=== PATIENT | female | born 1945 | race Hispanic/Latino ===

== ENCOUNTER 2016-03-10 18:16 | Day surgery (SDC) | payer MEDICARE, OTHER ==
[2016-03-10] MEDS ORDERED: Albuterol-Ipratrop 3 mg / 0.5 (3 ml) UD INH STA (18:54)
--- NOTE | 2016-03-10 19:01 | ED PDOC ---
HPI: Chest Pain Time Seen by Provider: 03/10/16 18:59 Chief Complaint (Nursing): Chest Pain Chief Complaint (Provider): chest pain/sob History Per: Patient (70 y/o h/o Alcohol abuse/COPD here with complaint of cough /sob. Was seen 03/08/2016 and diagnosed with pneumonia/copd. Patient signed out AMA 03/09/2016 without home medications. States she does not feel improved and is here for this reason. Denies any fevers/chills.) Past Medical History Reviewed: Historical Data, Nursing Documentation, Vital Signs Vital Signs: Last Vital Signs Temp 98.2 F 03/10/16 18:26 Pulse 78 03/10/16 18:50 Resp 26 H 03/10/16 18:26 BP 165/88 H 03/10/16 18:26 Pulse Ox 92 L 03/10/16 19:04 - Medical History PMH: Anxiety, Arthritis, Bipolar Disorder, Colonic Polyps, COPD, Dementia, Depression, Fractures (right wrist fracture), HTN, Hypercholesterolemia, Malignancy (squamous cell carcinoma of mouth/neck (2009)), Osteoporosis, Pneumonia, Schizophrenia Denies: CHF, Diabetes, Hepatitis, HIV, Hypothyroidism, Chronic Kidney Disease , Rheumatoid Arthritis, Seizures, Sexually Transmitted Disease - Family History Family History: States: Unknown Family Hx - Immunization History Hx Tetanus Toxoid Vaccination: Yes (w/in the past "couple of years") Hx Influenza Vaccination: Yes Hx Pneumococcal Vaccination: No - Home Medications Home Medications: Ambulatory Orders Medication Instructions Recorded Atorvastatin [Lipitor] 20 mg PO DAILY #0 tab 09/18/15 Folic Acid 1 mg PO DAILY #0 tab 09/18/15 Thiamine [Vitamin B1 Tab] 100 mg PO DAILY #0 tab 09/18/15 amLODIPine [Norvasc] 5 mg PO DAILY #0 tab 09/18/15 hydrOXYzine Pamoate [Vistaril] 25 mg PO TID PRN #0 cap 09/18/15 - Allergies Allergies/Adverse Reactions: Allergies Allergy/AdvReac Type Severity Reaction Status Date / Time No Known Allergies Allergy Verified 12/31/15 14:34 Review of Systems ROS Statement: Except As Marked, All Systems Reviewed And Found Negative Cardiovascular: Positive for: Chest Pain Respiratory: Positive for: Shortness of Breath Physical Exam - Reviewed Nursing Documentation Reviewed: Yes Vital Signs Reviewed: Yes - Physical Exam Appears: Positive for: Well, Non-toxic, No Acute Distress Head Exam: Positive for: ATRAUMATIC, NORMAL INSPECTION, NORMOCEPHALIC Skin: Positive for: Normal Color, Warm, DRY Eye Exam: Positive for: EOMI, Normal appearance, PERRL ENT: Positive for: Normal ENT Inspection Neck: Positive for: Normal, Painless ROM Cardiovascular/Chest: Positive for: Regular Rate, Rhythm Respiratory: Positive for: Normal Breath Sounds, Wheezing Gastrointestinal/Abdominal: Positive for: Normal Exam, Bowel Sounds, Soft Back: Positive for: Normal Inspection Extremity: Positive for: Normal ROM Neurologic/Psych: Positive for: Alert, Oriented - Laboratory Results Result Diagrams: 03/10/16 18:55 03/10/16 18:55 - ECG O2 Sat by Pulse Oximetry: 92 - Progress ED Course And Treament: DUONEB X 1 DOSE SOLUMEDROL 60MG IV X 1 DOSE ROCEPHIN 1 GM IV X 1 DOSE ZITHROMAX 500MG IV X 1 DOSE Disposition - Clinical Impression Clinical Impression: COPD exacerbation - Patient ED Disposition Is Patient to be Admitted: Transfer of Care - Disposition Disposition: Transfer of Care Disposition Time: 20:06 Condition: FAIR Patient Signed Over To: Sandra Milian Handoff Comments: RE-EVALUATION/RE-VIEW CXR
[2016-03-10] MEDS ORDERED: methylPREDNISolone 60 MG in Sodium Chloride 0.9% 50 ML IV STA (19:02)
[2016-03-10] MEDS ORDERED: Azithromycin 500 MG in Sodium Chloride 0.9% 250 ML IVPB STA (19:03)
[2016-03-10] MEDS ORDERED: MethylPREDNISolone 40 mg Vial ONE (19:15)
[2016-03-10 19:20] LABS: BASO # 0.1 K/uL (0.0-0.2); BASO % 0.8 % (0.0-2.0); EOS # 0.1 K/uL (0.0-0.7); EOS % 1.1 % (0.0-4.0); HEMATOCRIT 40.9 % (34.0-47.0); LYMPH # 2.3 K/uL (1.0-4.3); LYMPH % 25.8 % (20.0-40.0); MEAN CELL VOLUME 101.8 fl (81.0-99.0); MEAN CORPUSCULAR HEMOGLOBIN 34.3 pg (27.0-31.0); MEAN CORPUSCULAR HGB CONC 33.7 g/dL (33.0-37.0); MEAN PLATELET VOLUME 8.3 fl (7.2-11.7); MONO % 11.2 % (0.0-10.0); NEUT # 5.4 K/uL (1.8-7.0); NEUT % 61.1 % (50.0-75.0); NRBC % 0.1 % (0.0-0.0); RED CELL DISTRIBUTION WIDTH 14.7 % (11.5-14.5); WHITE BLOOD COUNT 8.9 K/uL (4.8-10.8)
[2016-03-10 19:29] LABS: ALB/GLOB RATIO 1.1 (1.0-2.1); ALCOHOL SERUM < 10 mg/dl (0-10); ALKALINE PHOSPHATASE 61 U/L (38-126); ALT/SGPT 12 U/L (9-52); AST/SGOT 20 U/L (14-36); BILIRUBIN,TOTAL 0.4 mg/dl (0.2-1.3); BLOOD UREA NITROGEN 29 mg/dl (7-17); CALCIUM 8.4 mg/dL (8.4-10.2); CARBON DIOXIDE 27 mmol/L (22-30); CHLORIDE 107 mmol/L (98-107); GFR AFRICAN-AMERICAN > 60; GLUCOSE,RANDOM 98 mg/dL (65-105); POTASSIUM 4.2 MMOL/L (3.6-5.0); SODIUM 145 mmol/l (132-148)
[2016-03-10] MEDS ORDERED: cefTRIAXone (Rocephin) 1 gm Inj ONE (20:07)
--- NOTE | 2016-03-10 21:19 | ED PDOC ---
- Laboratory Results Result Diagrams: 03/10/16 18:55 03/10/16 18:55 - ECG O2 Sat by Pulse Oximetry: 97 - Radiology X-Ray: Viewed By Me X-Ray Interpretation: Infiltrates (unchanged from previous xray 2 days ago which read bilateral infiltrates vs atelectasis) - Progress ED Course And Treament: Case endorsed to personal lines underwriter from Hugo BAINS pending chest xray, re-eval Patient evaluated by Dr. Cornejo, Hospitalist on-call, who is familiar with patient from admission 2 days ago; agrees patient appears to be improving since then. Will discharge with PO antibiotics, nebs to follow up PMD 1-2 days. Patient educated on findings, discharged with rx Levaquin, Albuterol neb solution, Prednisone. Advised follow up PMD 1-2 days. Return to ED for worsening/concerning symptoms. Disposition - Clinical Impression Clinical Impression: COPD exacerbation, Bronchitis - POA Present On Arrival: None - Disposition Disposition: Routine/Home Disposition Time: 21:19 Condition: STABLE Additional Instructions: Follow up with primary doctor in 1-2 days. Take medication as directed. Return to ED for worsening/concerning symptoms Prescriptions: Albuterol 0.083% [Albuterol Sulfate 3 Ml] 1 vial IH Q6 PRN #30 vial PRN Reason: Wheezing Levofloxacin [Levaquin] 500 mg PO DAILY #7 tablet Prednisone 50 mg PO DAILY #4 tablet Instructions: COPD (Chronic Obstructive Pulmonary Disease) (ED), Acute Bronchitis (ED)
[2016-03-10 23:59] VITALS: BP 136/69; PULSE 74; RESP 15; TEMP 97.6; O2SAT 96
--- NOTE | 2016-03-11 07:21 | CARD ---
APPROVED REPORT EKG Measurement Heart [id number] <Conclusion> Normal sinus rhythm Anterior infarct, age undetermined Abnormal ECG
--- NOTE | 2016-03-11 08:31 | RAD ---
HISTORY: chest pain COMPARISON: Comparison is made to 03/07/2016 FINDINGS: LUNGS: Re- demonstration of small opacities at the lung bases. No evidence of new infiltrate or consolidation in the lungs. Mildly elevation of the right hemidiaphragm again noted. PLEURA: No significant pleural effusion identified, no pneumothorax apparent. CARDIOVASCULAR: Normal. OSSEOUS STRUCTURES: No significant abnormalities. VISUALIZED UPPER ABDOMEN: Normal. OTHER FINDINGS: None. IMPRESSION: No significant interval change. A basilar small opacities likely atelectasis.
[2016-09-08] MEDS ORDERED: Propofol 10 mg/ml Inj (20 ML) ONE (10:56)
== END 2016-09-08 11:50 | disposition home or self-care (01) ==
LOC: H.ER 18:16 → H.ENDO 09-08 09:00
PROVIDERS: ATTEND Family Medicine
DX: J44.1 Chronic obstructive pulmonary disease with (acute) exacerbation (principal); J45.901 Unspecified asthma with (acute) exacerbation; J40 Bronchitis, not specified as acute or chronic; Z86.59 Personal history of other mental and behavioral disorders; I10 Essential (primary) hypertension; Z85.89 Personal history of malignant neoplasm of other organs and systems
CPT/HCPCS: 71010; 80053; 83880; 84484; 85025; 93005; 94640; 96365; 96367; 96375; 99284; G0480; J0456; J0696; J2001; J2405; J2704; J2920; J7050

== ENCOUNTER 2016-09-08 10:50 | Day surgery (SDC) | payer MEDICARE ==
[2016-09-08] MEDS ORDERED: Lactated Ringer's 500 ML IV ONE (10:56)
[2016-09-08 11:33] VITALS: TEMP 98
[2016-09-08 11:50] VITALS: BP 117/59; PULSE 65; RESP 16; O2SAT 97
== END 2016-09-08 11:31 | disposition home or self-care (01) ==
LOC: MERGE 10:50 → H.ENDO 10:50
PROVIDERS: ATTEND Internal Medicine Gastroenterology
DX: K63.5 Polyp of colon (principal); E78.5 Hyperlipidemia, unspecified; I10 Essential (primary) hypertension; K64.8 Other hemorrhoids; K57.30 Diverticulosis of large intestine without perforation or abscess without bleeding
CPT/HCPCS: 45378; J7120

== ENCOUNTER 2017-03-20 17:48 | Inpatient (IN) | payer MEDICAID, MEDICARE ==
[2017-03-20 17:49] VITALS: BMI 21.6
[2017-03-20 18:56] LABS: BASO # 0.1 K/uL (0.0-0.2); BASO % 0.8 % (0.0-2.0); EOS # 0.1 K/uL (0.0-0.7); EOS % 0.5 % (0.0-4.0); HEMATOCRIT 49.8 % (34.0-47.0); LYMPH # 1.5 K/uL (1.0-4.3); LYMPH % 15.6 % (20.0-40.0); MEAN CELL VOLUME 100.5 fl (81.0-99.0); MEAN CORPUSCULAR HEMOGLOBIN 33.9 pg (27.0-31.0); MEAN CORPUSCULAR HGB CONC 33.7 g/dL (33.0-37.0); MEAN PLATELET VOLUME 8.8 fl (7.2-11.7); MONO # 0.8 K/uL (0.0-0.8); MONO % 8.2 % (0.0-10.0); NEUT # 7.1 K/uL (1.8-7.0); NEUT % 74.9 % (50.0-75.0); NRBC % 0.1 % (0.0-0.0); RED CELL DISTRIBUTION WIDTH 14.8 % (11.5-14.5); WHITE BLOOD COUNT 9.4 K/uL (4.8-10.8)
--- NOTE | 2017-03-20 19:01 | ED PDOC ---
HPI: Psych/Substance Abuse Time Seen by Provider: 03/20/17 18:06 Chief Complaint (Nursing): Substance Abuse Chief Complaint (Provider): Overdose History Per: Patient History/Exam Limitations: no limitations Additional History Per: EMS Additional Complaint(s): Cary is a 72 y/o female with a history of anxiety, hypertension, COPD, depression, and alcohol abuse who was brought to the ED for an overdose. She states she started feeling anxious 10 days ago and was given vistaril, but her symptoms were so severe that she began taking 2 tabs every 4 hours instead of 1 tab twice a day. Patient also admits to taking double doses of both Advil PM and Nyquil to help her sleep intermittently. On , she reports she started having abdominal pain, shakiness, heart racing, light headedness, nausea , diarrhea, and dizziness. She also feels like she's seeing things moving that aren't, but denies vomiting, chest pain, shortness of breath, homicidal ideation , suicidal ideation, or hallucinations. Patient denies alcohol use but states she ate fruit cake and is concerned about its alcohol content. PMD: Dr. Wynn Past Medical History Vital Signs: Last Vital Signs Temp 98.1 F 03/20/17 17:54 Pulse 96 H 03/20/17 17:54 Resp 16 03/20/17 17:54 BP 117/82 03/20/17 17:54 Pulse Ox 100 03/20/17 17:54 - Medical History PMH: Anxiety, Arthritis (BACK , R SH), Bipolar Disorder, Colonic Polyps, COPD, Dementia, Depression, Fractures (right wrist fracture), HTN, Hypercholesterolemia, Malignancy (squamous cell carcinoma of mouth/neck (2009)) , Osteoporosis, Pneumonia, Schizophrenia Denies: CHF, Diabetes, Hepatitis, HIV, Hypothyroidism, Chronic Kidney Disease , Rheumatoid Arthritis, Seizures, Sexually Transmitted Disease - Family History Family History: States: Unknown Family Hx - Social History Current smoker - smoking cessation education provided: Yes Alcohol: Other (history of alcohol abuse; denies current use) - Immunization History Hx Tetanus Toxoid Vaccination: Yes (w/in the past "couple of years") Hx Influenza Vaccination: Yes Hx Pneumococcal Vaccination: No - Home Medications Home Medications: Ambulatory Orders Medication Instructions Recorded Atorvastatin [Lipitor] 20 mg PO DAILY #0 tab 09/18/15 Folic Acid 1 mg PO DAILY #0 tab 09/18/15 Thiamine [Vitamin B1 Tab] 100 mg PO DAILY #0 tab 09/18/15 amLODIPine [Norvasc] 5 mg PO DAILY #0 tab 09/18/15 hydrOXYzine Pamoate [Vistaril] 25 mg PO TID PRN #0 cap 09/18/15 Albuterol 0.083% [Albuterol 0.083% 1 vial IH Q6 PRN #30 vial 03/10/16 Inhal Tonja (2.5 mg/3 ml) UD] Levofloxacin [Levaquin] 500 mg PO DAILY #7 tablet 03/10/16 Prednisone 50 mg PO DAILY #4 tablet 03/10/16 Ciprofloxacin 0.3% [Ciloxan 0.3% 2 drop RIGHTEYE Q2H #5 ml 03/17/16 Ophth SOLN] Ciprofloxacin HCl [Ciloxan] 1 oin OD ACHS #3.5 oint...g. 03/17/16 traMADol [Ultram] 1 tab PO Q8H PRN #6 tab 03/17/16 Donepezil 10 mg PO HS 06/25/16 Montelukast Sodium 10 mg PO HS 06/25/16 Quetiapine Fumarate 25 mg PO HS 06/25/16 Valproic Acid 250 cap PO HS 06/25/16 Fluticasone/Salmeterol 250/50 1 puff INH RQ12 puff 06/30/16 [Advair Diskus 250/50] Gabapentin [Neurontin] 300 mg PO BID #60 cap 06/30/16 Losartan [Cozaar] 25 mg PO DAILY #30 tab 06/30/16 Memantine [Namenda] 10 mg PO DAILY #30 tab 06/30/16 Montelukast [Singulair] 10 mg PO HS #30 tab 06/30/16 QUEtiapine [SEROquel] 50 mg PO HS #30 tab 06/30/16 amLODIPine [Norvasc] 5 mg PO DAILY #30 tab 06/30/16 Unobtainable 09/08/16 - Allergies Allergies/Adverse Reactions: Allergies Allergy/AdvReac Type Severity Reaction Status Date / Time oxybutynin Allergy Verified 06/25/16 20:25 Review of Systems ROS Statement: Except As Marked, All Systems Reviewed And Found Negative Cardiovascular: Positive for: Light Headedness, Other (heart racing). Negative for: Chest Pain Respiratory: Negative for: Shortness of Breath Gastrointestinal: Positive for: Nausea, Abdominal Pain, Diarrhea. Negative for : Vomiting Neurological: Positive for: Dizziness, Other (shakiness) Psych: Positive for: Anxiety, Other (seeing things moving that aren't; negative for hallucinations, homicidal ideation). Negative for: Suicidal ideation Physical Exam - Reviewed Nursing Documentation Reviewed: Yes Vital Signs Reviewed: Yes - Physical Exam Appears: Positive for: In Acute Distress (anxious, somewhat restless) Head Exam: Positive for: ATRAUMATIC, NORMOCEPHALIC Skin: Positive for: Warm, Dry Eye Exam: Positive for: EOMI, PERRL (pupils seem large but reactive) ENT: Positive for: Other (dry mucus membranes, dry lips, mild lip smacking) Neck: Positive for: Painless ROM, Supple Cardiovascular/Chest: Positive for: Regular Rate, Rhythm, Chest Non Tender. Negative for: Murmur Respiratory: Positive for: Normal Breath Sounds. Negative for: Wheezing, Respiratory Distress Gastrointestinal/Abdominal: Positive for: Soft, Tenderness (mild epigastric). Negative for: Mass, Distended, Guarding, Rebound Extremity: Positive for: Normal ROM. Negative for: Deformity Lymphatic: Negative for: Adenopathy Neurologic/Psych: Positive for: Alert, Oriented, Mood/Affect (mildly anxious). Negative for: Motor/Sensory Deficits, Facial Droop - Laboratory Results Result Diagrams: 03/20/17 18:51 03/20/17 18:51 - ECG ECG Rhythm: Positive for: Sinus Rhythm, Nonspecific Changes O2 Sat by Pulse Oximetry: 100 (RA) Pulse Ox Interpretation: Normal - Radiology X-Ray: Interpreted by Me X-Ray Interpretation: No Acute Disease Medical Decision Making Medical Decision Making: Time: 18:06 Initial Impression: Overdose with multiple substances Initial Plan: --EKG --Acetaminophen --Alcohol serum --CMP --Creatine Phosphate --Urine Drug Screen --Lipase --Magnesium --Phosphorus --Salicylate --TSH --Valproic Acid --CBC --PTT --Prothrombin Time --Chest XR --Poison Control Consult DW Dr Rubio (Hospitalist admitting for PMD Dr Wynn). Pt needs hospitalization for observation for overdose of multiple sedatives/ antihistamines, unpredictable outcome, as well as for evaluation for inpatient psych due to severe anxiety. Scribe Attestation: Documented by Jose Luis Fong, acting as a scribe for Maria Del Carmen Ling MD Provider Scribe Attestation: All medical record entries made by the Scribe were at my direction and personally dictated by me. I have reviewed the chart and agree that the record accurately reflects my personal performance of the history, physical exam, medical decision making, and the department course for this patient. I have also personally directed, reviewed, and agree with the discharge instructions and disposition. Disposition - Clinical Impression Clinical Impression: Antihistamines overdose, Anxiety, Dehydration Counseled Patient/Family Regarding: Studies Performed, Diagnosis - Disposition Disposition Time: 21:00 Condition: FAIR - Pt Status Changed To: Hospital Disposition Of: Observation - POA Present On Arrival: None
[2017-03-20 19:10] LABS: ALB/GLOB RATIO 1.3 (1.0-2.1); ALCOHOL SERUM < 10 mg/dl (0-10); ALKALINE PHOSPHATASE 56 U/L (38-126); ALT/SGPT 32 U/L (9-52); AST/SGOT 24 U/L (14-36); BILIRUBIN,TOTAL 0.6 mg/dl (0.2-1.3); BLOOD UREA NITROGEN 12 mg/dl (7-17); CARBON DIOXIDE 21 mmol/L (22-30); CHLORIDE 105 mmol/L (98-107); GFR AFRICAN-AMERICAN 59; GLUCOSE,RANDOM 115 mg/dL (65-105); LIPASE 21 U/L (23-300); MAGNESIUM 1.3 MG/DL (1.6-2.3); PHOSPHOROUS 3.9 mg/dl (2.5-4.5); SODIUM 140 mmol/l (132-148); TOTAL PROTEIN 8.2 G/DL (6.3-8.2)
[2017-03-20 19:16] LABS: PARTIAL THROMBOPLASTIN TIME 37.8 Seconds (25.6-37.1)
[2017-03-20 19:18] LABS: VALPROIC ACID < 10.0 ug/mL (50.0-100.0)
[2017-03-20] MEDS ORDERED: Sodium Chloride 0.9% 500 ML IV STA (19:29)
[2017-03-20] MEDS ORDERED: Magnesium Oxide 400 mg Tab UD PO ONE (19:58)
[2017-03-20] MEDS: Dextrose 5%/0.45% NS 1,000 ML IV SCH (23:32)
--- NOTE | 2017-03-20 23:37 | CP.PCM.HP ---
History of Present Illness - History of Present Illness History of Present Illness: 72 ye old female patient with multiple co morbidities including HTN, HLD, COPD, DJD, Osteoporosis, FELECIA, Major depression and ETOH abuse who had been overdosing her insomnia pills viz vistaril x 10 days and recently also started using nyquil and ibuprofen. Since early today she has been having restlessness, tremo rs, nausea, palpitations intermittently. Came to ER where she was evaluated and on reccomendation of poison controll admitted to Tele floor foe monitoring the side effects and if needed necessary interventions. she other lopez denied any CP, SOB, Dizziness, diaphoresis, pleuritic CP, blurred vision, any seizure activity, LOC or any sensory motor neural deficit. Also denied any illusions, hallucinations, delusional thinking, any suicidal ideation or plan etc. she was alert and oriented at time of evaluation and able to give history Present on Admission - Present on Admission Any Indicators Present on Admission: Yes History of DVT/PE: No History of Uncontrolled Diabetes: No Urinary Catheter: No Decubitus Ulcer Present: No History Surgical Site Infection Following: None Review of Systems - Constitutional Constitutional: As Per HPI, Anorexia - EENT Eyes: As Per HPI Nose/Mouth/Throat: As Per HPI - Breasts Breasts: As Per HPI - Cardiovascular Cardiovascular: As Per HPI, Rapid Heart Rate - Respiratory Respiratory: As Per HPI - Gastrointestinal Gastrointestinal: As Per HPI, Dyspepsia, Nausea - Genitourinary Genitourinary: As Per HPI - Musculoskeletal Musculoskeletal: As Per HPI - Integumentary Integumentary: As Per HPI - Neurological Neurological: As Per HPI - Psychiatric Psychiatric: As Per HPI - Endocrine Endocrine: As Per HPI - Hematologic/Lymphatic Hematologic: As Per HPI Past Patient History - Infectious Disease Hx of Infectious Diseases: None - Tetanus Immunizations Tetanus Immunization: Unknown - Past Medical History & Family History Past Medical History?: Yes - Past Social History Smoking Status: Former Smoker Alcohol: Other (history of alcohol abuse; denies current use) Drugs: Denies - CARDIAC Hx Congestive Heart Failure: No Hx Hypercholesterolemia: Yes Hx Hypertension: Yes - PULMONARY Hx Chronic Obstructive Pulmonary Disease (COPD): Yes Hx Pneumonia: Yes - NEUROLOGICAL Hx Dementia: Yes Hx Seizures: No Hx Transient Ischemic Attacks (TIA): No - HEENT Hx HEENT Problems: No - RENAL Hx Chronic Kidney Disease: No - ENDOCRINE/METABOLIC Hx Hypothyroidism: No - HEMATOLOGICAL/ONCOLOGICAL Hx Human Immunodeficiency Virus (HIV): No - INTEGUMENTARY Hx Squamous Cell: Yes (No Chemo treatment; surgery 10 yrs ago at [place]) - MUSCULOSKELETAL/RHEUMATOLOGICAL Hx Arthritis: Yes (BACK , R SH) Hx Fractures: Yes (right wrist fracture) Hx Osteoporosis: Yes Hx Rheumatoid Arthritis: No - GASTROINTESTINAL Hx Gastrointestinal Disorders: No - GENITOURINARY/GYNECOLOGICAL Hx Sexually Transmitted Disorders: No - PSYCHIATRIC Hx Anxiety: Yes Hx Bipolar Disorder: Yes Hx Depression: Yes Hx Schizophrenia: Yes - SURGICAL HISTORY Hx Hysterectomy: Yes (Partial) Other/Comment: mouth and neck CA SX - ANESTHESIA Hx Anesthesia: Yes Hx Anesthesia Reactions: No Hx Malignant Hyperthermia: No Meds Allergies/Adverse Reactions: Allergies Allergy/AdvReac Type Severity Reaction Status Date / Time oxybutynin Allergy Verified 06/25/16 20:25 Physical Exam - Constitutional Appears: Non-toxic Additional comments: Alert, awake and oriented without any acute cardio resp distress. Reasonably dressed, hygine fair. Able to give history. Rapport could be estabilished and maintained - Head Exam Head Exam: ATRAUMATIC, NORMAL INSPECTION, NORMOCEPHALIC - Eye Exam Eye Exam: Normal appearance, PERRL Pupil Exam: NORMAL ACCOMODATION - ENT Exam ENT Exam: Mucous Membranes Moist, Normal Exam, Normal External Ear Exam - Neck Exam Neck exam: Positive for: Normal Inspection - Respiratory Exam Respiratory Exam: Clear to Auscultation Bilateral, NORMAL BREATHING PATTERN - Cardiovascular Exam Cardiovascular Exam: REGULAR RHYTHM - GI/Abdominal Exam GI & Abdominal Exam: Normal Bowel Sounds, Soft - Extremities Exam Extremities exam: Positive for: normal inspection, pedal pulses present - Back Exam Back exam: FULL ROM - Psychiatric Exam Psychiatric exam: Normal Affect, Normal Mood (Mildly anxious and restlessness with fine tremors) - Skin Skin Exam: Intact, Normal Color Results - Vital Signs Recent Vital Signs: Last Vital Signs Temp 98.1 F 03/20/17 17:54 Pulse 78 03/20/17 19:20 Resp 17 03/20/17 19:20 BP 124/78 03/20/17 19:20 Pulse Ox 100 03/20/17 21:50 - Labs Result Diagrams: 03/20/17 18:51 03/20/17 18:51 Labs: Laboratory Results - last 24 hr 03/20/17 03/20/17 03/20/17 18:13 18:51 18:51 WBC 9.4 RBC 4.96 Hgb 16.8 H D Hct 49.8 H MCV 100.5 H MCH 33.9 H MCHC 33.7 RDW 14.8 H Plt Count 169 MPV 8.8 Neut % (Auto) 74.9 Lymph % (Auto) 15.6 L [place] % (Auto) 8.2 Eos % (Auto) 0.5 Baso % (Auto) 0.8 Neut # 7.1 H Lymph # 1.5 [place] # 0.8 Eos # 0.1 Baso # 0.1 PT INR APTT Sodium 140 Potassium 4.0 Chloride 105 Carbon Dioxide 21 L Anion Gap 18 BUN 12 Creatinine 1.1 Est GFR ( Amer) 59 Est GFR (Non-Af Amer) 49 POC Glucose (mg/dL) 116 H Random Glucose 115 H Calcium 10.0 Phosphorus 3.9 Magnesium 1.3 L Total Bilirubin 0.6 AST 24 ALT 32 Alkaline Phosphatase 56 Total Creatine Kinase 42 Total Protein 8.2 Albumin 4.6 Globulin 3.5 Albumin/Globulin Ratio 1.3 Lipase 21 L TSH 3rd Generation 4.00 Salicylates Urine Opiates Screen Urine Methadone Screen Acetaminophen Ur Barbiturates Screen Valproic Acid Ur Phencyclidine Scrn Ur Amphetamines Screen U Benzodiazepines Scrn U Oth Cocaine Metabols U Cannabinoids Screen Alcohol, Quantitative < 10 03/20/17 03/20/17 03/20/17 18:51 18:51 18:51 WBC RBC Hgb Hct MCV MCH MCHC RDW Plt Count MPV Neut % (Auto) Lymph % (Auto) [place] % (Auto) Eos % (Auto) Baso % (Auto) Neut # Lymph # [place] # Eos # Baso # PT 10.4 INR 0.9 APTT 37.8 H Sodium Potassium Chloride Carbon Dioxide Anion Gap BUN Creatinine Est GFR ( Amer) Est GFR (Non-Af Amer) POC Glucose (mg/dL) Random Glucose Calcium Phosphorus Magnesium Total Bilirubin AST ALT Alkaline Phosphatase Total Creatine Kinase Total Protein Albumin Globulin Albumin/Globulin Ratio Lipase TSH 3rd Generation Salicylates 14.2 Urine Opiates Screen Negative Urine Methadone Screen Negative Acetaminophen < 10.0 L Ur Barbiturates Screen Negative Valproic Acid < 10.0 L Ur Phencyclidine Scrn Negative Ur Amphetamines Screen Negative U Benzodiazepines Scrn Negative U Oth Cocaine Metabols Negative U Cannabinoids Screen Negative Alcohol, Quantitative - EKG Data EKG shows normal: Sinus rhythm Assessment & Plan - Assessment and Plan (Free Text) Assessment: 72 yr old female with multiple co morbidities including FELECIA, Depression, Ex alcohol consumption, COPD, HTN, HLD, DJD admitted after pt had been over dosing her sleep meds and came restlessness, anxitiy, nausea, palpitaions. She was evaluated in ED and work up was unremakable except for fypomagnesemia. She was admitted after the initial interventions in ED wiyh impressions that included: 1. Drug overdose. 2. Electrolyte imbalance and hypo magnesemia. 3. Other above mentioned co morbidities including FELECIA, Depression, Ex alcohol consumption, COPD, HTN, HLD, DJD etc The plan is to 1. Admit to Tele floor for close hemodynamic observations and necessary intervention. 2. Fall and Seizure precautions. 3. Neuro checks q 4 hr x 24 hr. 4. NPO except meds and ice chips. 5. IV fluid therapy for hydration, nutrion and correction of electrolyte imbalance including hypomagnesemia. 6. Stess ulcer, DVT prophylaxis with PPI, SC heparin and early ambulation. 7. Symptomatic treatment of other bodily symptoms with short acting meds on prn basis. 8. Psych consult and follow up and if needed consult poison controll again The pt. during hospital stay shall be followed up by the hospitalist and psych services. and post discharge sent back to care of her Primary MD for further follow up
[2017-03-21 07:38] LABS: BASO # 0.1 K/uL (0.0-0.2); BASO % 1.2 % (0.0-2.0); EOS # 0.1 K/uL (0.0-0.7); EOS % 1.6 % (0.0-4.0); HEMATOCRIT 43.5 % (34.0-47.0); LYMPH # 1.5 K/uL (1.0-4.3); LYMPH % 25.5 % (20.0-40.0); MEAN CELL VOLUME 100.4 fl (81.0-99.0); MEAN CORPUSCULAR HGB CONC 33.9 g/dL (33.0-37.0); MEAN PLATELET VOLUME 9.2 fl (7.2-11.7); MONO # 0.6 K/uL (0.0-0.8); MONO % 10.5 % (0.0-10.0); NEUT # 3.6 K/uL (1.8-7.0); NEUT % 61.2 % (50.0-75.0); NRBC % 0.1 % (0.0-0.0); WHITE BLOOD COUNT 5.8 K/uL (4.8-10.8)
[2017-03-21 08:20] LABS: THYROID STIMULATING HORMONE 3.65 mIU/ML (0.46-4.68)
--- NOTE | 2017-03-21 08:24 | RAD ---
HISTORY: cough COMPARISON: Portable chest 03/10/2016 FINDINGS: LUNGS: Reticular changes are stable at the bilateral bases with no alveolitis appreciated bilaterally. PLEURA: No significant pleural effusion identified, no pneumothorax apparent. CARDIOVASCULAR: Prominent cardiac silhouette appears stable. No pulmonary vascular derangement appreciated. OSSEOUS STRUCTURES: No significant abnormalities. VISUALIZED UPPER ABDOMEN: Normal. OTHER FINDINGS: None. IMPRESSION: Stable reticular changes in the bilateral bases may be chronic or subacute. Clinically correlate further. No alveolitis pleural effusion or pneumothorax.
[2017-03-21 08:29] LABS: ALB/GLOB RATIO 1.3 (1.0-2.1); ALKALINE PHOSPHATASE 45 U/L (38-126); ALT/SGPT 26 U/L (9-52); AST/SGOT 19 U/L (14-36); BILIRUBIN,TOTAL 0.4 mg/dl (0.2-1.3); BLOOD UREA NITROGEN 9 mg/dl (7-17); CALCIUM 8.4 mg/dL (8.4-10.2); CARBON DIOXIDE 24 mmol/L (22-30); CHLORIDE 110 mmol/L (98-107); GFR AFRICAN-AMERICAN > 60; GLUCOSE,RANDOM 126 mg/dL (65-105); MAGNESIUM 1.3 MG/DL (1.6-2.3); POTASSIUM 3.7 MMOL/L (3.6-5.0); SODIUM 141 mmol/l (132-148); TOTAL PROTEIN 6.5 G/DL (6.3-8.2)
[2017-03-21 08:38] LABS: PARTIAL THROMBOPLASTIN TIME 33.4 Seconds (25.6-37.1)
[2017-03-21] MEDS: Dextrose 5%/0.45% NS 1,000 ML IV SCH ×2 (08:42→18:34)
[2017-03-21] MEDS ORDERED: Magnesium Sulfate 2 gm/50 ml 2 GM/50 ML BAG IVPB ONE (09:00)
--- NOTE | 2017-03-21 13:15 | CP.PCM.PN ---
Subjective - Date & Time of Evaluation Date of Evaluation: 03/21/17 Time of Evaluation: 11:30 - Subjective Subjective: Pt feels better less jittery denies LINDSEY no dizziness no visual change no CP no palpitation no SOB no abd pain Denies suicidal ideation. Claims that she did not intentionally takes the meds to hurt herself but only took them bec of Insomnia Objective - Vital Signs/Intake and Output Vital Signs (last 24 hours): Temp Pulse Resp BP Pulse Ox 99.0 F 63 18 151/72 H 94 L 03/21/17 12:00 03/21/17 12:00 03/21/17 12:00 03/21/17 12:00 03/21/17 12:00 - Medications Medications: Current Medications Famotidine (Pepcid) 20 mg PO BID [facility] Last Admin: 03/21/17 08:42 Dose: 20 mg Heparin Sodium (Porcine) (Heparin) 5,000 units SC Q12 [facility] PRN Reason: Protocol Last Admin: 03/21/17 08:42 Dose: 5,000 units Dextrose/Sodium Chloride (Dextrose 5%/0.45% Ns 1000 Ml) 1,000 mls @ 100 mls/hr IV .Q10H [facility] Last Admin: 03/21/17 08:42 Dose: 100 mls/hr Nicotine (Nicoderm Cq) 1 patch TD DAILY [facility] Last Admin: 03/21/17 08:41 Dose: 1 patch Ondansetron HCl (Zofran Inj) 4 mg IVP Q6 PRN PRN Reason: Nausea/Vomiting Last Admin: 03/20/17 23:06 Dose: 4 mg Thiamine HCl (Vitamin B1 Tab) 100 mg PO DAILY [facility] Last Admin: 03/21/17 08:42 Dose: 100 mg - Labs Labs: 03/21/17 06:30 03/21/17 06:30 PT 10.9 Seconds (9.8-13.1) 03/21/17 06:30 INR 1.0 (0.9-1.2) 03/21/17 06:30 APTT 33.4 Seconds (25.6-37.1) 03/21/17 06:30 - Constitutional Appears: No Acute Distress - Head Exam Head Exam: NORMAL INSPECTION, NORMOCEPHALIC - Eye Exam Eye Exam: EOMI, Normal appearance Pupil Exam: NORMAL ACCOMODATION - ENT Exam ENT Exam: Mucous Membranes Moist, Normal External Ear Exam - Neck Exam Neck Exam: Full ROM. absent: Meningismus - Respiratory Exam Respiratory Exam: NORMAL BREATHING PATTERN. absent: Wheezes, Respiratory Distress - Cardiovascular Exam Cardiovascular Exam: REGULAR RHYTHM, +S1, +S2 - GI/Abdominal Exam GI & Abdominal Exam: Soft, Normal Bowel Sounds. absent: Tenderness - Extremities Exam Extremities Exam: Full ROM. absent: Calf Tenderness, Pedal Edema - Back Exam Back Exam: Full ROM. absent: CVA tenderness (L), CVA tenderness (R) - Neurological Exam Neurological Exam: Alert, Awake, CN II-XII Intact, Oriented x3 - Psychiatric Exam Psychiatric exam: Normal Affect, Normal Mood - Skin Skin Exam: Dry, Normal Color, Warm Assessment and Plan (1) Accidental drug overdose Status: Acute (2) Depression Status: Chronic (3) HTN (hypertension) Status: Chronic (4) COPD (chronic obstructive pulmonary disease) Status: Chronic (5) DVT prophylaxis Status: Acute - Assessment and Plan (Free Text) Assessment: 72 y/o lady with hx of Depression, Insomnia, Alcohol Abuse ( recovering alcoholic, ff up with [facility] [employer]), hx HTN, COPD , was brought in bec of she was not feeling well and family noted jitteriness. Pt admits to taking more Vistaril than what she was prescribed bec she has not been sleeping well lately. She also took OTC Nyquil and Sleeping meds. She denies any suicidal intent but took all these meds bec she was unable to sleep. (1) Accidental drug overdose Status: Acute Pt being monitored in Telemetry less jittery today than yesterday denies suicidal intent Psych consult IVF hydration (2) Depression Status: Chronic Psych consulted- case discussed with Dr Rawls - rec to restart Trazodone, Gabapentin and Wellbutrin (3) HTN (hypertension) Status: Chronic cont Norvasc (4) COPD (chronic obstructive pulmonary disease) Status: Chronic cont Advair Duoneb prn 5. Hypomagnesemia - IV Mg SO4 6. DVT prophylaxis Status: Acute Heparin
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
[2017-03-21] MEDS ORDERED: Albuterol-Ipratrop 3 mg / 0.5 (3 ml) UD INH PRN (16:26)
[2017-03-21] MEDS ORDERED: GABAPENTIN 400 MG PO SCH (17:00)
--- NOTE | 2017-03-21 17:31 | CARD ---
APPROVED REPORT EKG Measurement Heart [id number] <Conclusion> Normal sinus rhythm Possible Left atrial enlargement Left axis deviation Left ventricular hypertrophy Consider lateral ischemia Abnormal ECG
[2017-03-21] MEDS ORDERED: Magnesium Oxide 400 mg Tab UD PO ONE (19:58)
[2017-03-21] MEDS: Fluticasone-Salmeterol 250-50mcg Diskus IH SCH ×2 (21:30→21:38)
[2017-03-22] MEDS: Dextrose 5%/0.45% NS 1,000 ML IV SCH (04:33)
[2017-03-22 05:48] LABS: HEMATOCRIT 45.9 % (34.0-47.0); MEAN CELL VOLUME 102.2 fl (81.0-99.0); MEAN CORPUSCULAR HEMOGLOBIN 33.6 pg (27.0-31.0); MEAN CORPUSCULAR HGB CONC 32.8 g/dL (33.0-37.0); RED CELL DISTRIBUTION WIDTH 15.4 % (11.5-14.5); WHITE BLOOD COUNT 5.1 K/uL (4.8-10.8)
[2017-03-22 06:21] LABS: ALB/GLOB RATIO 1.3 (1.0-2.1); ALKALINE PHOSPHATASE 48 U/L (38-126); ALT/SGPT 30 U/L (9-52); AST/SGOT 18 U/L (14-36); BILIRUBIN,TOTAL 0.4 mg/dl (0.2-1.3); BLOOD UREA NITROGEN 10 mg/dl (7-17); CALCIUM 8.5 mg/dL (8.4-10.2); CARBON DIOXIDE 26 mmol/L (22-30); CHLORIDE 109 mmol/L (98-107); GFR AFRICAN-AMERICAN > 60; GLUCOSE,RANDOM 102 mg/dL (65-105); MAGNESIUM 1.8 MG/DL (1.6-2.3); POTASSIUM 3.7 MMOL/L (3.6-5.0); SODIUM 142 mmol/l (132-148); TOTAL PROTEIN 6.4 G/DL (6.3-8.2)
[2017-03-22] MEDS: Fluticasone-Salmeterol 250-50mcg Diskus IH SCH ×2 (08:38→21:45)
[2017-03-22] MEDS: Metoprolol Succinate 25 mg XL Tab PO SCH (10:31)
--- NOTE | 2017-03-22 10:31 | CP.PCM.PN ---
Subjective - Date & Time of Evaluation Date of Evaluation: 03/22/17 Time of Evaluation: 09:45 - Subjective Subjective: Noted 8 beats of Nonsustained VT on Tele monitor Pt was asymptomatic no CP no palpitation no SOB denies abd pin still with sl tremors states her psych medications make her more sick and she would like me to d/c it , discussed with pt need to discuss this with her Psychiatrist as Psych med cannot be just d/c abruptly Objective - Vital Signs/Intake and Output Vital Signs (last 24 hours): Temp Pulse Resp BP Pulse Ox 99.0 F 78 18 154/81 H 94 L 03/22/17 08:00 03/22/17 08:37 03/22/17 08:00 03/22/17 08:37 03/22/17 08:00 Intake and Output: 03/22/17 03/22/17 06:59 18:59 Intake Total 150 Balance 150 - Medications Medications: Current Medications Albuterol/Ipratropium (Duoneb 3 Mg/0.5 Mg (3 Ml) Ud) 3 ml INH RQ4 PRN PRN Reason: Shortness of Breath Amlodipine Besylate (Norvasc) 5 mg PO DAILY [facility] Last Admin: 03/22/17 08:37 Dose: 5 mg Atorvastatin Calcium (Lipitor) 20 mg PO DAILY [facility] Last Admin: 03/22/17 08:38 Dose: 20 mg Famotidine (Pepcid) 20 mg PO BID [facility] Last Admin: 03/22/17 08:37 Dose: 20 mg Folic Acid (Folic Acid) 1 mg PO DAILY [facility] Last Admin: 03/22/17 08:39 Dose: 1 mg Gabapentin (Neurontin) 400 mg PO BID [facility] Last Admin: 03/22/17 08:38 Dose: 400 mg Heparin Sodium (Porcine) (Heparin) 5,000 units SC Q12 [facility] PRN Reason: Protocol Last Admin: 03/22/17 08:38 Dose: 5,000 units Home Med (Bupropion Xl [Wellbutrin Xl]) 300 mg PO DAILY [facility] Dextrose/Sodium Chloride (Dextrose 5%/0.45% Ns 1000 Ml) 1,000 mls @ 100 mls/hr IV .Q10H [facility] Last Admin: 03/22/17 04:33 Dose: Not Given Metoprolol Succinate (Toprol Xl) 25 mg PO DAILY [facility] Nicotine (Nicoderm Cq) 1 patch TD DAILY [facility] Last Admin: 03/22/17 08:36 Dose: 1 patch Ondansetron HCl (Zofran Inj) 4 mg IVP Q6 PRN PRN Reason: Nausea/Vomiting Last Admin: 03/20/17 23:06 Dose: 4 mg Fluticasone/Salmeterol (Advair Diskus 250/50) 1 puff IH Q12 [facility] Last Admin: 03/22/17 08:38 Dose: 1 puff Thiamine HCl (Vitamin B1 Tab) 100 mg PO DAILY [facility] Last Admin: 03/22/17 08:39 Dose: 100 mg Trazodone HCl (Desyrel) 50 mg PO HS [facility] Last Admin: 03/21/17 21:31 Dose: 50 mg - Labs Labs: 03/22/17 04:20 03/22/17 04:20 PT 10.9 Seconds (9.8-13.1) 03/21/17 06:30 INR 1.0 (0.9-1.2) 03/21/17 06:30 APTT 33.4 Seconds (25.6-37.1) 03/21/17 06:30 - Constitutional Appears: No Acute Distress - Head Exam Head Exam: NORMAL INSPECTION, NORMOCEPHALIC - Eye Exam Eye Exam: EOMI, Normal appearance Pupil Exam: NORMAL ACCOMODATION - ENT Exam ENT Exam: Mucous Membranes Moist, Normal External Ear Exam - Neck Exam Neck Exam: Full ROM. absent: Meningismus - Respiratory Exam Respiratory Exam: NORMAL BREATHING PATTERN. absent: Wheezes, Respiratory Distress - Cardiovascular Exam Cardiovascular Exam: REGULAR RHYTHM, +S1, +S2 - GI/Abdominal Exam GI & Abdominal Exam: Soft, Normal Bowel Sounds. absent: Tenderness - Extremities Exam Extremities Exam: Full ROM. absent: Calf Tenderness, Pedal Edema sl hand tremor - Back Exam Back Exam: Full ROM. absent: CVA tenderness (L), CVA tenderness (R) - Neurological Exam Neurological Exam: Alert, Awake, CN II-XII Intact, Oriented x3 - Psychiatric Exam Psychiatric exam: Normal Affect, Normal Mood - Skin Skin Exam: Dry, Normal Color, Warm Assessment and Plan (1) Accidental drug overdose Status: Acute (2) Depression Status: Chronic (3) Nonsustained ventricular tachycardia Status: Acute (4) HTN (hypertension) Status: Chronic (5) COPD (chronic obstructive pulmonary disease) Status: Chronic (6) DVT prophylaxis Status: Acute - Assessment and Plan (Free Text) Assessment: 72 y/o lady with hx of Depression, Insomnia, Alcohol Abuse ( recovering alcoholic, ff up with [facility]), hx HTN, COPD , was brought in bec of she was not feeling well and family noted jitteriness. Pt admits to taking more Vistaril than what she was prescribed bec she has not been sleeping well lately. She also took OTC Nyquil and Sleeping meds. She denies any suicidal intent but took all these meds bec she was unable to sleep. (1) Accidental drug overdose Status: Acute Pt being monitored in Telemetry less jittery denies suicidal intent Psych consulted- since pt had no suicidal intent -ok to d/c home once medically stable IVF hydration 2. Nonsustained VT pt asymptomatic Magnesium normal 1.8 ECHO eprt EKG to eval for QT prolongation while on Psych meds Cardio consult : Dr Ezra Vazquez (3. Depression Status: Chronic Psych consulted- case discussed with Nehemias Rawls - rec to restart Trazodone, Gabapentin and Wellbutrin (4) HTN (hypertension) Status: Chronic cont Norvasc (4) COPD (chronic obstructive pulmonary disease) Status: Chronic cont Advair Duoneb prn 5. Hypomagnesemia, resolved - IV Mg SO4 6. DVT prophylaxis Status: Acute Heparin
--- NOTE | 2017-03-22 17:02 | CARD ---
APPROVED REPORT EKG Measurement Heart [id number] <Conclusion> Normal sinus rhythm Left axis deviation Low voltage QRS Inferior infarct, age undetermined Cannot rule out Anteroseptal infarct, age undetermined Abnormal ECG
[2017-03-22] MEDS ORDERED: Magnesium Hydroxide Susp 30 ml UD PO PRN (22:37)
[2017-03-23] MEDS: Dextrose 5%/0.45% NS 1,000 ML IV SCH (00:36)
[2017-03-23 00:43] VITALS: RESP 18
[2017-03-23 05:43] LABS: HEMATOCRIT 42.5 % (34.0-47.0); MEAN CELL VOLUME 101.4 fl (81.0-99.0); MEAN CORPUSCULAR HEMOGLOBIN 33.6 pg (27.0-31.0); MEAN CORPUSCULAR HGB CONC 33.1 g/dL (33.0-37.0); RED CELL DISTRIBUTION WIDTH 15.1 % (11.5-14.5); WHITE BLOOD COUNT 5.2 K/uL (4.8-10.8)
[2017-03-23 06:09] LABS: BLOOD UREA NITROGEN 14 mg/dl (7-17); CALCIUM 8.8 mg/dL (8.4-10.2); CARBON DIOXIDE 29 mmol/L (22-30); CHLORIDE 108 mmol/L (98-107); GFR AFRICAN-AMERICAN > 60; GLUCOSE,RANDOM 132 mg/dL (65-105); MAGNESIUM 2.1 MG/DL (1.6-2.3); SODIUM 143 mmol/l (132-148)
[2017-03-23 07:54] VITALS: O2SAT 94
[2017-03-23] MEDS ORDERED: buPROPion SR 150 MG TABLET PO SCH (09:00)
[2017-03-23] MEDS: Fluticasone-Salmeterol 250-50mcg Diskus IH SCH (09:41)
[2017-03-23] MEDS: Metoprolol Succinate 25 mg XL Tab PO SCH (09:44)
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
--- NOTE | 2017-03-23 10:23 | CP.PCM.DIS ---
Provider - Provider Date of Admission: 03/20/17 21:51 Attending physician: Tony Rubio MD Primary care physician: DR Wynn Consults: Cardio: Dr Ezra Vazquez Time Spent in preparation of Discharge (in minutes): 30 Diagnosis - Discharge Diagnosis (1) Accidental drug overdose Status: Acute (2) Depression Status: Chronic (3) Nonsustained ventricular tachycardia Status: Acute (4) HTN (hypertension) Status: Chronic (5) COPD (chronic obstructive pulmonary disease) Status: Chronic (6) DVT prophylaxis Status: Acute Hospital Course - Lab Results Lab Results: Most Recent Lab Values WBC 5.2 K/uL (4.8-10.8) 03/23/17 04:25 RBC 4.19 Mil/uL (3.80-5.20) 03/23/17 04:25 Hgb 14.1 g/dL (12.0-16.0) 03/23/17 04:25 Hct 42.5 % (34.0-47.0) 03/23/17 04:25 MCV 101.4 fl (81.0-99.0) H 03/23/17 04:25 MCH 33.6 pg (27.0-31.0) H 03/23/17 04:25 MCHC 33.1 g/dL (33.0-37.0) 03/23/17 04:25 RDW 15.1 % (11.5-14.5) H 03/23/17 04:25 Plt Count 113 K/uL (130-400) L 03/23/17 04:25 MPV 9.2 fl (7.2-11.7) 03/21/17 06:30 Neut % (Auto) 61.2 % (50.0-75.0) 03/21/17 06:30 Lymph % (Auto) 25.5 % (20.0-40.0) 03/21/17 06:30 [place] % (Auto) 10.5 % (0.0-10.0) H 03/21/17 06:30 Eos % (Auto) 1.6 % (0.0-4.0) 03/21/17 06:30 Baso % (Auto) 1.2 % (0.0-2.0) 03/21/17 06:30 Neut # 3.6 K/uL (1.8-7.0) 03/21/17 06:30 Lymph # 1.5 K/uL (1.0-4.3) 03/21/17 06:30 Nicol[place] # 0.6 K/uL (0.0-0.8) 03/21/17 06:30 Eos # 0.1 K/uL (0.0-0.7) 03/21/17 06:30 Baso # 0.1 K/uL (0.0-0.2) 03/21/17 06:30 PT 10.9 Seconds (9.8-13.1) 03/21/17 06:30 INR 1.0 (0.9-1.2) 03/21/17 06:30 APTT 33.4 Seconds (25.6-37.1) 03/21/17 06:30 Sodium 143 mmol/l (132-148) 03/23/17 04:25 Potassium 4.0 MMOL/L (3.6-5.0) 03/23/17 04:25 Chloride 108 mmol/L (98-107) H 03/23/17 04:25 Carbon Dioxide 29 mmol/L (22-30) 03/23/17 04:25 Anion Gap 10 (10-20) 03/23/17 04:25 BUN 14 mg/dl (7-17) 03/23/17 04:25 Creatinine 1.0 mg/dl (0.7-1.2) 03/23/17 04:25 Est GFR ( Amer) > 60 03/23/17 04:25 Est GFR (Non-Af Amer) 54 03/23/17 04:25 POC Glucose (mg/dL) 116 mg/dL (65-110) H 03/20/17 18:13 Random Glucose 132 mg/dL (65-105) H 03/23/17 04:25 Calcium 8.8 mg/dL (8.4-10.2) 03/23/17 04:25 Phosphorus 3.9 mg/dl (2.5-4.5) 03/20/17 18:51 Magnesium 2.1 MG/DL (1.6-2.3) 03/23/17 04:25 Total Bilirubin 0.4 mg/dl (0.2-1.3) 03/22/17 04:20 AST 18 U/L (14-36) 03/22/17 04:20 ALT 30 U/L (9-52) 03/22/17 04:20 Alkaline Phosphatase 48 U/L (38-126) 03/22/17 04:20 Total Creatine Kinase 34 U/L (30-135) 03/21/17 06:30 Troponin I 0.0260 ng/mL (0.00-0.120) 03/20/17 23:29 Total Protein 6.4 G/DL (6.3-8.2) 03/22/17 04:20 Albumin 3.7 g/dL (3.5-5.0) 03/22/17 04:20 Globulin 2.8 gm/dL (2.2-3.9) 03/22/17 04:20 Albumin/Globulin Ratio 1.3 (1.0-2.1) 03/22/17 04:20 Lipase 21 U/L (23-300) L 03/20/17 18:51 TSH 3rd Generation 3.65 mIU/ML (0.46-4.68) 03/21/17 06:30 Salicylates 14.2 mg/dl 03/20/17 18:51 Urine Opiates Screen Negative (NEGATIVE) 03/20/17 18:51 Urine Methadone Screen Negative (NEGATIVE) 03/20/17 18:51 Acetaminophen < 10.0 ug/ml (10.0-30.0) L 03/20/17 18:51 Ur Barbiturates Screen Negative (NEGATIVE) 03/20/17 18:51 Valproic Acid < 10.0 ug/mL (50.0-100.0) L 03/20/17 18:51 Ur Phencyclidine Scrn Negative (NEGATIVE) 03/20/17 18:51 Ur Amphetamines Screen Negative (NEGATIVE) 03/20/17 18:51 U Benzodiazepines Scrn Negative (NEGATIVE) 03/20/17 18:51 U Oth Cocaine Metabols Negative (NEGATIVE) 03/20/17 18:51 U Cannabinoids Screen Negative (NEGATIVE) 03/20/17 18:51 Alcohol, Quantitative < 10 mg/dl (0-10) 03/20/17 18:51 - Hospital Course Hospital Course: 72 y/o lady with hx of Depression, Insomnia, Alcohol Abuse ( recovering alcoholic, ff up with [facility]), hx HTN, COPD , was brought in bec of she was not feeling well and family noted jitteriness. Pt admits to taking more Vistaril than what she was prescribed bec she has not been sleeping well lately. She also took OTC Nyquil and Sleep aide meds. She denies any suicidal intent but took all these meds bec she was unable to sleep. (1) Accidental drug overdose Status: Acute Pt being monitored in Telemetry less jittery denies suicidal intent Psych consulted- since pt had no suicidal intent -ok to d/c home once medically stable IVF hydration 2. Nonsustained VT Noted 1 episoe on NSVT on Tele monitoring pt asymptomatic Magnesium normal 1.8 ECHO Cardio consult : Dr Ezra Vazquez- cleared pt for d/c (3. Depression Status: Chronic Psych consulted- case discussed with Nehemias Rawls - rec to restart Trazodone, Gabapentin and Wellbutrin advised pt to ff up with her Psych salbador (4) HTN (hypertension) Status: Chronic cont Norvasc and Metoprolol (4) COPD (chronic obstructive pulmonary disease) Status: Chronic cont Advair Duoneb prn 5. Hypomagnesemia, resolved - IV Mg SO4 given 6. DVT prophylaxis Status: Acute Heparin Discharge Exam - Head Exam Head Exam: NORMAL INSPECTION, NORMOCEPHALIC - Eye Exam Eye Exam: EOMI, Normal appearance, PERRL Pupil Exam: NORMAL ACCOMODATION - ENT Exam ENT Exam: Mucous Membranes Moist, Normal External Ear Exam - Neck Exam Neck exam: Full Rom - Respiratory Exam Respiratory Exam: NORMAL BREATHING PATTERN. absent: Respiratory Distress - Cardiovascular Exam Cardiovascular Exam: REGULAR RHYTHM, +S1, +S2 - GI/Abdominal Exam GI & Abdominal Exam: Normal Bowel Sounds, Soft. absent: Tenderness - Extremities Exam Extremities exam: full ROM, normal capillary refill, pedal pulses present - Back Exam Back exam: FULL ROM. absent: CVA tenderness (L), CVA tenderness (R) - Neurological Exam Neurological exam: Alert, CN II-XII Intact, Normal Gait, Oriented x3, Reflexes Normal - Psychiatric Exam Psychiatric exam: Normal Affect, Normal Mood - Skin Skin Exam: Dry, Normal Color, Warm Discharge Plan - Discharge Medications Prescriptions: RX: Metoprolol Succinate [Toprol XL] 25 mg PO DAILY #30 tab RX: traZODone [Desyrel] 50 mg PO HS PRN #15 tab PRN Reason: Insomnia - Follow Up Plan Condition: GOOD Disposition: HOME/ ROUTINE Instructions: Safe Use of Cough and Cold Medicines (DC) Additional Instructions: ff up with Psychiatry at [facility] ff up with PMD - DR Wynn [facility] Referrals: Wei Wynn [Staff Provider] - uQin Lundberg MD [Medical Doctor] -
[2017-03-23 12:07] VITALS: BP 121/75; PULSE 60; TEMP 98.1
--- NOTE | 2017-03-24 09:36 | CARD ---
APPROVED REPORT EXAM: Two-dimensional and M-mode echocardiogram with Doppler and color Doppler. Other Information Quality : GoodRhythm : NSR INDICATION Abnormal EKG/Arrhythmia 2D DIMENSIONS IVSd0.69 (0.7-1.1cm)LVDd4.19 (3.9-5.9cm) LVOT Diameter1.96 (1.8-2.4cm)PWd0.85 (0.7-1.1cm) IVSs1.05 (0.8-1.2cm)LVDs3.24 (2.5-4.0cm) FS (%) 22.8 %PWs0.64 (0.8-1.2cm) M-Mode DIMENSIONS Left Atrium (MM)4.21 (2.5-4.0cm)IVSd0.91 (0.7-1.1cm) Aortic Root2.85 (2.2-3.7cm)LVDd4.76 (4.0-5.6cm) Aortic Cusp Exc.1.79 (1.5-2.0cm)PWd0.79 (0.7-1.1cm) IVSs1.47 cmFS (%) 40 % LVDs2.85 (2.0-3.8cm)PWs1.29 cm Mitral Valve MV E Evccmoja62.8cm/sMV DECEL [id number] A Kwrgkgtn47.0cm/s MV ATP86hhE/A ratio1.0MVA (PHT)2.77cm2 TDI Lateral E' Peak V8.07cm/sMedial E' Peak V11.16cm/sE/Lateral E'8.2 E/Medial E'5.9 Pulmonary Valve PV Peak Cjrkqxqv98.4cm/s Tricuspid Valve TR Peak Qpicekkl461pm/sRAP [id number] Peak Gr.20mmHg [id number] LEFT VENTRICLE The left ventricle is normal size. There is normal left ventricular wall thickness. The left ventricular function is normal. The left ventricular ejection fraction is 60% There is normal LV segmental wall motion. The left ventricular diastolic function is normal. No left ventricle thrombus noted on this study. There is no ventricular septal defect visualized. There is no left ventricular aneurysm. There is no mass noted in the left ventricle. RIGHT VENTRICLE The right ventricle is normal size. There is normal right ventricular wall thickness. The right ventricular systolic function is normal. ATRIA The left atrium size is normal. The right atrium size is normal. The interatrial septum is intact with no evidence for an atrial septal defect. AORTIC VALVE The aortic valve is normal in structure. No aortic regurgitation is present. There is no aortic valvular stenosis. There is no aortic valvular vegetation. MITRAL VALVE The mitral valve is normal in structure. There is no evidence of mitral valve prolapse. There is no mitral valve stenosis. There is no mitral valve regurgitation noted. TRICUSPID VALVE The tricuspid valve is normal in structure. There is trace to mild tricuspid regurgitation. There is no tricuspid valve prolapse or vegetation. There is no tricuspid valve stenosis. PULMONIC VALVE The pulmonary valve is normal in structure. There is no pulmonic valvular regurgitation. There is no pulmonic valvular stenosis. GREAT VESSELS The aortic root is normal in size. The ascending aorta is normal in size. The IVC is normal in size and collapses >50% with inspiration. PERICARDIAL EFFUSION The pericardium appears normal. There is no pleural effusion. <Conclusion> Normal Echocardiogram
--- NOTE | 2017-03-24 11:55 | CARD ---
APPROVED REPORT EKG Measurement Heart [id number] <Conclusion> Normal sinus rhythm Cannot rule out Anterior infarct, age undetermined Abnormal ECG
== END 2017-03-23 14:34 | disposition home or self-care (01) | DRG 918 ==
LOC: H.ER 17:48 → H.ERHOLD 21:13 → OBSVTOIN 21:51 → H.TEL 22:45
PROVIDERS: ADMIT Internal Medicine; ATTEND Internal Medicine
DX: T45.0X1A Poisoning by antiallergic and antiemetic drugs, accidental (unintentional), initial encounter (principal); I47.2 Ventricular tachycardia; E87.1 Hypo-osmolality and hyponatremia; E83.42 Hypomagnesemia; F03.90 Unspecified dementia, unspecified severity, without behavioral disturbance, psychotic disturbance, mood disturbance, and anxiety; J44.9 Chronic obstructive pulmonary disease, unspecified; F20.9 Schizophrenia, unspecified; F10.21 Alcohol dependence, in remission; E86.0 Dehydration; F31.9 Bipolar disorder, unspecified; G47.00 Insomnia, unspecified; E78.5 Hyperlipidemia, unspecified; I10 Essential (primary) hypertension; M19.90 Unspecified osteoarthritis, unspecified site; M81.0 Age-related osteoporosis without current pathological fracture; F17.210 Nicotine dependence, cigarettes, uncomplicated; Z85.819 Personal history of malignant neoplasm of unspecified site of lip, oral cavity, and pharynx; Z87.01 Personal history of pneumonia (recurrent); Z86.010 Personal history of colon polyps

== ENCOUNTER 2017-04-07 11:16 | Emergency (ER) | payer MEDICARE ==
[2017-04-07 11:33] VITALS: TEMP 98.2; O2SAT 95
[2017-04-07] MEDS ORDERED: Bacitracin OINT 15GM TOP STA (12:01)
--- NOTE | 2017-04-07 12:35 | ED PDOC ---
HPI: Trauma/Fall - HPI Chief Complaint (Nursing): Trauma Chief Complaint (Provider): Fall History Per: Patient History/Exam Limitations: no limitations Onset/Duration Of Symptoms: Days (x 1) Injury Occurred (Timing): Just Before Arrival Additional Complaint(s): 72 year old female with history of alcoholism brought to the ED by EMS to be evaluated after a fall just before arrival. Patient reports she was getting out of bed, slipped on slippers and fell. Denies LOC, chest pain, shortness of breath, and light headedness. PMD: none provided Past Medical History Reviewed: Historical Data, Nursing Documentation, Vital Signs Vital Signs: Last Vital Signs Temp 98.2 F 04/07/17 11:32 Pulse 67 04/07/17 11:32 Resp 18 04/07/17 11:32 BP 129/73 04/07/17 11:32 Pulse Ox 95 04/07/17 11:32 - Medical History PMH: Anxiety, Arthritis (BACK , R SH), Bipolar Disorder, Colonic Polyps, COPD, Dementia, Depression, Fractures (right wrist fracture), HTN, Hypercholesterolemia, Malignancy (squamous cell carcinoma of mouth/neck (2009)) , Osteoporosis, Pneumonia, Post Traumatic Stress Disorder, Schizophrenia Denies: CHF, Diabetes, Hepatitis, HIV, Hypothyroidism, Chronic Kidney Disease , Rheumatoid Arthritis, Seizures, Sexually Transmitted Disease, TIA - Family History Family History: States: Unknown Family Hx - Immunization History Hx Tetanus Toxoid Vaccination: Yes (w/in the past "couple of years") Hx Influenza Vaccination: Yes Hx Pneumococcal Vaccination: No - Home Medications Home Medications: Ambulatory Orders Medication Instructions Recorded Atorvastatin Calcium 20 mg PO DAILY 03/20/17 Fluticasone/Salmeterol [Advair 250 mg INH PRN 03/20/17 250-50 Diskus] Folic Acid 1 mg PO DAILY 03/20/17 Thiamine HCl [B-1] 100 mg PO DAILY 03/20/17 amLODIPine [Norvasc] 5 mg PO DAILY 03/20/17 buPROPion XL [Wellbutrin XL] 300 mg PO DAILY 03/20/17 Gabapentin [Neurontin] 300 mg PO BID cap 03/23/17 Metoprolol Succinate [Toprol XL] 25 mg PO DAILY #30 tab 03/23/17 traZODone [Desyrel] 50 mg PO HS PRN #15 tab 03/23/17 Ibuprofen [Motrin] 600 mg PO Q6 PRN #30 tab 04/07/17 - Allergies Allergies/Adverse Reactions: Allergies Allergy/AdvReac Type Severity Reaction Status Date / Time No Known Allergies Allergy Verified 04/07/17 11:32 Review of Systems ROS Statement: Except As Marked, All Systems Reviewed And Found Negative Cardiovascular: Negative for: Chest Pain Respiratory: Negative for: Shortness of Breath Neurological: Negative for: Dizziness Physical Exam - Reviewed Nursing Documentation Reviewed: Yes Vital Signs Reviewed: Yes - Physical Exam Appears: Positive for: Non-toxic, No Acute Distress Head Exam: Positive for: ATRAUMATIC (noted, tenderness to forehead with abrasion ), NORMOCEPHALIC Eye Exam: Positive for: EOMI, PERRL, Periorbital swelling (Complete left sided periorbital ecchymosis). Negative for: Other (hyphema, hemorrhage and pain with movement) ENT: Positive for: Normal ENT Inspection, TM Is/Are (normal) Neck: Positive for: Normal, Painless ROM, Supple Cardiovascular/Chest: Positive for: Regular Rate, Rhythm Respiratory: Positive for: CNT, Normal Breath Sounds Gastrointestinal/Abdominal: Positive for: Normal Exam, Soft Back: Positive for: Normal Inspection Extremity: Positive for: Normal ROM (at elbow), Other (Right arm superficial skin avulsion) Neurologic/Psych: Positive for: Alert, Oriented Comments: negative for Santos's sign - Laboratory Results Result Diagrams: 04/07/17 12:25 04/07/17 12:25 - ECG O2 Sat by Pulse Oximetry: 95 (RA) Pulse Ox Interpretation: Normal Medical Decision Making Medical Decision Making: Time: 12:00 Impression: mechanical fall and head injury R/o intracranial hemorrhage, orbital fracture Initial Plan: --Blood type and screen --Ct head w/o contrast --Maxillofacial CT --Alcohol serum --BMP --CBC --PTT --Bacitracin --Tylenol [address] FINDINGS: IMPRESSION: No interval intracranial hemorrhage. Chronic atrophy and chronic microvascular ischemic changes inferred. No calvarial fracture appreciated Interval left frontal scalp to left periorbital hematoma -as above Time: 14:[address] FINDINGS: IMPRESSION: Soft tissue swelling without acute articular or osseous abnormality. Periorbital soft tissue swelling is considerable without globe, retro Conal or orbital abnormality. Time: 14:[address] FINDINGS: IMPRESSION: No acute findings related to/accounting for the clinical presentation. Time: 14:50 CT reviewed. Alcohol elevated. Patient then admitted she did have a drink. Patient feels better and has no pain or vision changes. Alert and oriented x3. Able to walk steady with no ataxia. States that she will try to quit drinking and is in a program. Advised to use Motrin and ice 3 times a day. Follow up with ophthalmology and PMD. Scribe Attestation: Documented by Ct Luna, acting as a scribe for Renaldo Pérez DO Provider Scribe Attestation: All medical record entries made by the Scribe were at my direction and personally dictated by me. I have reviewed the chart and agree that the record accurately reflects my personal performance of the history, physical exam, medical decision making, and the department course for this patient. I have also personally directed, reviewed, and agree with the discharge instructions and disposition. Disposition - Clinical Impression Clinical Impression: Fall, Periorbital contusion of left eye - Patient ED Disposition Is Patient to be Admitted: No - Disposition Referrals: [facility] [Outside] Brock Ryder MD [Staff Provider] - Disposition Time: 14:50 Condition: IMPROVED Additional Instructions: Ms Andrews, thank you for letting us take care of you today. Your provider was Dr. Pérez. You were treated for Fall with Head Injury. The emergency medical care you received today was directed at your acute symptoms. If you were prescribed any medication, please fill it and take as directed. It may take several days for your symptoms to resolve. Return to the Emergency Department if your symptoms worsen, do not improve, or if you have any other problems. Please contact your doctor or call one of the physicians/clinics you have been referred to that are listed on the Patient Visit Information form that is included in your discharge packet. Bring any paperwork you were given at discharge with you along with any medications you are taking to your follow up visit. Our treatment cannot replace ongoing medical care by a primary care provider (PCP) outside of the emergency department. Thank you for allowing the [facility] team to be part of your care today. If you had an X-Ray or CT scan: A Radiologist will review the ED reading if any change in treatment is needed we will contact you. If you had a blood, urine, or wound culture: It will take several days for the results, if any change in treatment is needed we will contact you. If you had an STI test: It will take 48 hours for the results. Please call after 1 week if you have not heard back. Prescriptions: Ibuprofen [Motrin] 600 mg PO Q6 PRN #30 tab PRN Reason: Pain, Moderate (4-7) Instructions: Fall Prevention for Older Adults (ED) Forms: [employer] ([place])
[2017-04-07 12:39] LABS: HEMOGLOBIN 14.2 g/dL (12.0-16.0); MEAN CORPUSCULAR HEMOGLOBIN 33.6 pg (27.0-31.0); MEAN CORPUSCULAR HGB CONC 33.8 g/dL (33.0-37.0); RBC 4.24 Mil/uL (3.80-5.20); RED CELL DISTRIBUTION WIDTH 14.4 % (11.5-14.5)
[2017-04-07 12:46] LABS: MEAN CELL VOLUME 99.3 fl (81.0-99.0)
[2017-04-07 12:47] LABS: BLOOD UREA NITROGEN 11 mg/dl (7-17); CALCIUM 8.7 mg/dL (8.4-10.2); GFR AFRICAN-AMERICAN > 60; GFR NON-AFRICAN AMERICAN > 60
[2017-04-07] MEDS ORDERED: Potassium Chloride 20 mEq ER Tab PO ONE ×2 (12:54→13:11)
--- NOTE | 2017-04-07 14:07 | CT ---
PROCEDURE: CT HEAD WITHOUT CONTRAST. HISTORY: head injury r/o ich COMPARISON: 07/23/2015 CT head TECHNIQUE: Axial computed tomography images were obtained through the head/brain without intravenous contrast. Radiation dose: Total exam DLP = 938 mGy-cm. This CT exam was performed using one or more of the following dose reduction techniques: Automated exposure control, adjustment of the mA and/or kV according to patient size, and/or use of iterative reconstruction technique. FINDINGS: HEMORRHAGE: No intracranial hemorrhage. . Marked head tilting -streak artifact limiting optimal evaluation. BRAIN: No mass effect or edema. Generalized cerebral atrophy with bilateral chronic microvascular ischemic changes -similar appear. VENTRICLES: Unremarkable. No hydrocephalus. CALVARIUM: Unremarkable. PARANASAL SINUSES: Unremarkable as visualized. No significant inflammatory changes. MASTOID AIR CELLS: Unremarkable as visualized. No inflammatory changes. OTHER FINDINGS: Left frontal scalp swelling/hematoma 6 cm wide by 1.4 cm in depth - blending with left supra /periorbital swelling. Some gas within the left scalp swallow soft tissues inferred IMPRESSION: No interval intracranial hemorrhage. Chronic atrophy and chronic microvascular ischemic changes inferred. No calvarial fracture appreciated Interval left frontal scalp to left periorbital hematoma -as above
--- NOTE | 2017-04-07 14:23 | CT ---
PROCEDURE: CT MAXILLOFACIAL BONES WITHOUT CONTRAST HISTORY: Rosaline kaminski s/p fall with head inj r/o fx COMPARISON: Apruray . CT head 07/23/[address] TECHNIQUE: Contiguous axial CT images of the maxillofacial bones were obtained. Coronal and sagittal reformats were generated. Radiation dose: Total exam DLP = 802.63 mGy-cm. This CT exam was performed using one or more of the following dose reduction techniques: Automated exposure control, adjustment of the mA and/or kV according to patient size, and/or use of iterative reconstruction technique. FINDINGS: NASAL BONES: No evidence of acute nasal bone fractures. ORBITS: No evidence of orbital fracture. Considerable preseptal soft tissue swelling identified. Focal air interposed between the globe and the soft tissue swelling. No foreign body is identified. PARANASAL SINUSES/ MASTOIDS: Clear. MAXILLA: Unremarkable. MANDIBLE/ TEMPOROMANDIBULAR JOINTS: Unremarkable. SKULL BASE: Unremarkable. TEMPORAL BONES: Middle ears and mastoid grossly unremarkable. OTHER FINDINGS: None. IMPRESSION: Soft tissue swelling without acute articular or osseous abnormality. Periorbital soft tissue swelling is considerable without globe, retro Conal or orbital abnormality.
--- NOTE | 2017-04-07 14:26 | CT ---
PROCEDURE: CT Cervical Spine without contrast HISTORY: <fall r/o fx> COMPARISON: None available. TECHNIQUE: Axial computed tomography images were obtained of the cervical spine without the use of intravenous contrast. Coronal and sagittal reformatted images were created and reviewed. Radiation dose: Total exam DLP = 585.69 mGy-cm. This CT exam was performed using one or more of the following dose reduction techniques: Automated exposure control, adjustment of the mA and/or kV according to patient size, and/or use of iterative reconstruction technique. FINDINGS: VERTEBRAE: No fracture. Normal alignment. No destructive bony lesion. DISCS/SPINAL CANAL/NEURAL FORAMINA: No significant central canal or neural foraminal stenosis. Multilevel degenerative changes, primarily disc space narrowing. PARASPINAL SOFT TISSUES: Unremarkable. OTHER FINDINGS: None. IMPRESSION: No acute findings related to/accounting for the clinical presentation.
[2017-04-07 14:53] VITALS: BP 128/79; PULSE 78; RESP 14
== END 2017-04-07 14:52 | disposition home or self-care (01) ==
LOC: H.ER 11:16
DX: S00.12XA Contusion of left eyelid and periocular area, initial encounter (principal); Z85.41 Personal history of malignant neoplasm of cervix uteri; J44.9 Chronic obstructive pulmonary disease, unspecified; Z86.59 Personal history of other mental and behavioral disorders; I10 Essential (primary) hypertension; E78.00 Pure hypercholesterolemia, unspecified; F03.90 Unspecified dementia, unspecified severity, without behavioral disturbance, psychotic disturbance, mood disturbance, and anxiety; W01.0XXA Fall on same level from slipping, tripping and stumbling without subsequent striking against object, initial encounter
CPT/HCPCS: 70450; 70486; 72125; 80048; 85027; 85730; 86850; 86870; 86900; 99285; G0480

== ENCOUNTER 2017-05-19 10:14 | Emergency (ER) | payer MEDICARE, OTHER ==
[2017-05-19 10:31] VITALS: RESP 18
[2017-05-19] MEDS ORDERED: Sodium Chloride 0.9% 1,000 ML IV STA (11:13)
--- NOTE | 2017-05-19 11:15 | ED PDOC ---
HPI: Psych/Substance Abuse Time Seen by Provider: 05/19/17 10:41 Chief Complaint (Nursing): Alcohol Ingestion Chief Complaint (Provider): ETOH History Per: Patient Additional Complaint(s): pt presents to ED c/o bodyaches and alcohol intoxication, pt states she is a recovering alcoholic, sober for 1 year and has been drinking every day for the last 2 weeks. Last drink was AM. Generally drinks a pint of Vodka a day Past Medical History Reviewed: Nursing Documentation, Vital Signs Vital Signs: Last Vital Signs Temp 98.9 F 05/19/17 10:29 Pulse 102 H 05/19/17 10:29 Resp 18 05/19/17 10:29 BP 157/100 H 05/19/17 10:29 Pulse Ox 97 05/19/17 10:29 - Medical History PMH: Anxiety, Arthritis (BACK , R SH), Bipolar Disorder, Colonic Polyps, COPD, Dementia, Depression, Fractures (right wrist fracture), HTN, Hypercholesterolemia, Malignancy (squamous cell carcinoma of mouth/neck (2009)) , Osteoporosis, Pneumonia, Post Traumatic Stress Disorder, Schizophrenia Denies: CHF, Diabetes, Hepatitis, HIV, Hypothyroidism, Chronic Kidney Disease , Rheumatoid Arthritis, Seizures, Sexually Transmitted Disease, TIA - Family History Family History: States: Unknown Family Hx - Social History Alcohol: > 2 Drinks/Day - Immunization History Hx Tetanus Toxoid Vaccination: Yes (w/in the past "couple of years") Hx Influenza Vaccination: Yes Hx Pneumococcal Vaccination: No - Home Medications Home Medications: Ambulatory Orders Medication Instructions Recorded Atorvastatin Calcium 20 mg PO DAILY 03/20/17 Thiamine HCl [B-1] 100 mg PO DAILY 03/20/17 amLODIPine [Norvasc] 5 mg PO DAILY 03/20/17 Metoprolol Succinate [Toprol XL] 25 mg PO DAILY #30 tab 03/23/17 Desvenlafaxine Succinate [Pristiq] 100 mg PO DAILY 04/19/17 FLUoxetine [Prozac] 20 mg PO DAILY 04/19/17 Memantine HCl [Namenda Xr] 14 mg PO DAILY 04/19/17 Naltrexone [Revia] 50 mg PO DAILY 04/19/17 Omeprazole 40 mg PO DAILY 04/19/17 Rosuvastatin Calcium [Crestor] 10 mg PO DAILY 04/19/17 Albuterol HFA [Ventolin HFA 90 2 puff IH [id number] PRN #1 inhaler 04/28/17 mcg/actuation (8 g)] Fluticasone/Salmeterol 500/50 1 puff INH RQ12 30 Days 04/28/17 [Advair Diskus 500/50] Nicotine 21 mg/24 hr [Nicoderm Cq] 21 mg TD Q24H #30 patch 04/28/17 Tiotropium [place] Inhaler 1 inhaler INH ONCE #1 inhaler 04/28/17 [Spiriva Inhalation Handihaler Device] Tiotropium [Spiriva] 18 mcg INH RQ24 30 Days #30 cap 04/28/17 traZODone [Desyrel] 50 mg PO HS PRN #14 tab 04/28/17 - Allergies Allergies/Adverse Reactions: Allergies Allergy/AdvReac Type Severity Reaction Status Date / Time No Known Allergies Allergy Verified 05/19/17 10:29 Review of Systems ROS Statement: Except As Marked, All Systems Reviewed And Found Negative Psych: Positive for: Anxiety Physical Exam - Reviewed Nursing Documentation Reviewed: Yes Vital Signs Reviewed: Yes - Physical Exam Appears: Positive for: Well, Non-toxic, No Acute Distress Head Exam: Positive for: ATRAUMATIC, NORMAL INSPECTION, NORMOCEPHALIC Skin: Positive for: Normal Color, Warm, DRY Eye Exam: Positive for: EOMI, Normal appearance, PERRL ENT: Positive for: Normal ENT Inspection Neck: Positive for: Normal, Painless ROM Cardiovascular/Chest: Positive for: Regular Rate, Rhythm Respiratory: Positive for: CNT, Normal Breath Sounds Gastrointestinal/Abdominal: Positive for: Normal Exam, Bowel Sounds, Soft Back: Positive for: Normal Inspection Extremity: Positive for: Normal ROM Neurologic/Psych: Positive for: Alert, Oriented - Laboratory Results Result Diagrams: 05/19/17 11:40 05/19/17 11:40 - ECG O2 Sat by Pulse Oximetry: 97 Medical Decision Making Medical Decision Making: IV access established and treatment initiated with IVF and Librium Labs resulted and reviewed with Pt who demonstrated full understanding. Pt doing well on re-eval. reports all symptoms have resolved. Pt offered crisis eval for her anxiety; however, declined. Repeat Pulse: 88 BP: 148/82 Disposition - Clinical Impression Clinical Impression: Alcohol dependence with withdrawal - Patient ED Disposition Is Patient to be Admitted: No - Disposition Disposition: Routine/Home Disposition Time: 15:55 Condition: STABLE Instructions: Alcohol Intoxication (ED) Forms: [facility] ([place])
[2017-05-19 11:53] LABS: BASO # 0.1 K/uL (0.0-0.2); BASO % 0.7 % (0.0-2.0); EOS # 0.1 K/uL (0.0-0.7); EOS % 0.8 % (0.0-4.0); HEMOGLOBIN 14.6 g/dL (12.0-16.0); LYMPH # 2.7 K/uL (1.0-4.3); LYMPH % 21.4 % (20.0-40.0); MEAN CELL VOLUME 99.9 fl (81.0-99.0); MEAN CORPUSCULAR HEMOGLOBIN 33.7 pg (27.0-31.0); MEAN CORPUSCULAR HGB CONC 33.7 g/dL (33.0-37.0); MONO # 0.8 K/uL (0.0-0.8); MONO % 6.4 % (0.0-10.0); NEUT # 8.9 K/uL (1.8-7.0); NEUT % 70.7 % (50.0-75.0); NRBC % 0.1 % (0.0-0.0); RBC 4.33 Mil/uL (3.80-5.20); RED CELL DISTRIBUTION WIDTH 15.4 % (11.5-14.5); WHITE BLOOD COUNT 12.5 K/uL (4.8-10.8)
[2017-05-19 12:09] LABS: CALCIUM 9.3 mg/dL (8.4-10.2); GFR AFRICAN-AMERICAN > 60; GFR NON-AFRICAN AMERICAN > 60
[2017-05-19 12:11] LABS: ALB/GLOB RATIO 1.2 (1.0-2.1); ALBUMIN 4.4 g/dL (3.5-5.0); ALT/SGPT 41 U/L (9-52); AST/SGOT 64 U/L (14-36); BLOOD UREA NITROGEN 14 mg/dl (7-17)
[2017-05-19 14:09] LABS: BARBITURATES, UR NEGATIVE (NEGATIVE); BENZODIAZEPINES, UR POSITIVE (NEGATIVE); OPIATES, UR NEGATIVE (NEGATIVE); PHENCYCLIDINE, UR NEGATIVE (NEGATIVE)
[2017-05-19 14:26] LABS: SQUAMOUS EPITHIAL 1 /hpf (0-5); URINE BILIRUBIN NEGATIVE (NEGATIVE); URINE BLOOD SMALL (NEGATIVE); URINE CLARITY SLIGHTY-CLOUDY (Clear); URINE COLOR YELLOW (YELLOW); URINE GLUCOSE (UA) NEG (Normal); URINE HYALINE CAST 0-2 /hpf (0-2); URINE LEUKOCYTE ESTERASE NEG Leu/uL (Negative); URINE NITRATE NEGATIVE (NEGATIVE); URINE PROTEIN 30 mg/dL (NEGATIVE); URINE UROBILINOGEN 0.2-1.0 mg/dL (0.2-1.0)
--- NOTE | 2017-05-19 14:32 | CARD ---
APPROVED REPORT EKG Measurement Heart [id number] [place] [id number] <Conclusion> Normal sinus rhythm Left axis deviation Inferior infarct, age undetermined Possible anterior infarct, age undetermined Abnormal ECG
[2017-05-19 16:06] VITALS: BP 124/76; PULSE 76; TEMP 98.4; O2SAT 100
== END 2017-05-19 16:06 | disposition home or self-care (01) ==
LOC: H.ER 10:14
DX: F10.239 Alcohol dependence with withdrawal, unspecified (principal)
CPT/HCPCS: 80053; 81003; 85025; 93005; 99283; G0480; J7040

== ENCOUNTER 2017-05-20 07:25 | Emergency (ER) | payer MEDICARE, OTHER ==
[2017-05-20 07:42] VITALS: BMI 22.3
== END 2017-05-20 07:45 | disposition left against medical advice (07) ==
LOC: H.ER 07:25
DX: Z02.89 Encounter for other administrative examinations (principal)

== ENCOUNTER 2017-06-08 12:18 | Emergency (ER) | payer MEDICARE, OTHER ==
[2017-06-08 12:37] VITALS: BMI 21.4
[2017-06-08 12:40] VITALS: PULSE 72; RESP 18; TEMP 98.8
--- NOTE | 2017-06-08 13:11 | ED PDOC ---
HPI: SOB/CHF/COPD Time Seen by Provider: 06/08/17 12:44 Chief Complaint (Nursing): Shortness Of Breath Chief Complaint (Provider): shortness of breath History Per: Patient History/Exam Limitations: no limitations Onset/Duration Of Symptoms: Days (x2) Current Symptoms Are (Timing): Still Present Associated Symptoms: denies: Fever Additional Complaint(s): Cary Andrews is a 72 year old female with a past medical history of COPD, who presents to the ER with complains of shortness of breath with associated congestion, onset 2 days ago. Patient reports to have smoked in the past three days and uses home oxygen. She denies any fever, nausea, vomiting, or sputum production. She offers no other medical complaints at this time. PMD: non [facility]-provider Past Medical History Reviewed: Historical Data, Nursing Documentation, Vital Signs Vital Signs: Last Vital Signs Temp 98.8 F 06/08/17 12:37 Pulse 72 06/08/17 12:37 Resp 18 06/08/17 12:37 BP Pulse Ox 100 06/08/17 13:20 - Medical History PMH: Anxiety, Arthritis (BACK , R SH), Bipolar Disorder, Colonic Polyps, COPD, Dementia, Depression, Fractures (right wrist fracture), HTN, Hypercholesterolemia, Malignancy (squamous cell carcinoma of mouth/neck (2009)) , Osteoporosis, Pneumonia, Post Traumatic Stress Disorder, Schizophrenia Denies: CHF, Diabetes, Hepatitis, HIV, Hypothyroidism, Chronic Kidney Disease , Rheumatoid Arthritis, Seizures, Sexually Transmitted Disease, TIA - Family History Family History: States: Unknown Family Hx - Social History Current smoker - smoking cessation education provided: Yes - Immunization History Hx Tetanus Toxoid Vaccination: Yes (w/in the past "couple of years") Hx Influenza Vaccination: Yes Hx Pneumococcal Vaccination: No - Home Medications Home Medications: Ambulatory Orders Medication Instructions Recorded Atorvastatin Calcium 20 mg PO DAILY 03/20/17 Thiamine HCl [B-1] 100 mg PO DAILY 03/20/17 amLODIPine [Norvasc] 5 mg PO DAILY 03/20/17 Metoprolol Succinate [Toprol XL] 25 mg PO DAILY #30 tab 03/23/17 Desvenlafaxine Succinate [Pristiq] 100 mg PO DAILY 04/19/17 FLUoxetine [Prozac] 20 mg PO DAILY 04/19/17 Memantine HCl [Namenda Xr] 14 mg PO DAILY 04/19/17 Naltrexone [Revia] 50 mg PO DAILY 04/19/17 Omeprazole 40 mg PO DAILY 04/19/17 Rosuvastatin Calcium [Crestor] 10 mg PO DAILY 04/19/17 Albuterol HFA [Ventolin HFA 90 2 puff IH [id number] PRN #1 inhaler 04/28/17 mcg/actuation (8 g)] Fluticasone/Salmeterol 500/50 1 puff INH RQ12 30 Days 04/28/17 [Advair Diskus 500/50] Nicotine 21 mg/24 hr [Nicoderm Cq] 21 mg TD Q24H #30 patch 04/28/17 Tiotropium [place] Inhaler 1 inhaler INH ONCE #1 inhaler 04/28/17 [Spiriva Inhalation Handihaler Device] Tiotropium [Spiriva] 18 mcg INH RQ24 30 Days #30 cap 04/28/17 traZODone [Desyrel] 50 mg PO HS PRN #14 tab 04/28/17 Albuterol HFA [Ventolin HFA 90 2 puff IH Q4H #1 puff 06/08/17 mcg/actuation (8 g)] Azithromycin [Zithromax] 250 mg PO DAILY #6 tab 06/08/17 Prednisone 50 mg PO DAILY #5 tab 06/08/17 - Allergies Allergies/Adverse Reactions: Allergies Allergy/AdvReac Type Severity Reaction Status Date / Time No Known Allergies Allergy Verified 05/19/17 10:29 Review of Systems ROS Statement: Except As Marked, All Systems Reviewed And Found Negative Constitutional: Negative for: Fever ENT: Positive for: Nose Congestion (denies sputum) Respiratory: Positive for: Shortness of Breath Gastrointestinal: Negative for: Nausea, Vomiting Physical Exam - Reviewed Nursing Documentation Reviewed: Yes Vital Signs Reviewed: Yes - Physical Exam Appears: Positive for: Non-toxic, No Acute Distress Head Exam: Positive for: ATRAUMATIC, NORMAL INSPECTION, NORMOCEPHALIC Skin: Positive for: Normal Color, Warm, Dry Eye Exam: Positive for: Normal appearance, EOMI, PERRL ENT: Positive for: Normal ENT Inspection Neck: Positive for: Normal Cardiovascular/Chest: Positive for: Regular Rate, Rhythm. Negative for: Murmur Respiratory: Positive for: Decreased Breath Sounds (dimished breath sounds bilaterally). Negative for: Wheezing Gastrointestinal/Abdominal: Positive for: Normal Exam, Soft. Negative for: Tenderness Back: Positive for: Normal Inspection Extremity: Positive for: Normal ROM. Negative for: Calf Tenderness, Deformity, Swelling Neurologic/Psych: Positive for: Alert, Oriented - ECG O2 Sat by Pulse Oximetry: 100 (RA) Pulse Ox Interpretation: Normal - Progress Re-evaluation Time: 13:41 Condition: Improved Medical Decision Making Medical Decision Making: Time: 12:50 Plan: --VBG Shock Panel --EKG --CMP --CBC --CXR --Duoneb 3 ml IH --Prednisone Tab 40 mg PO --Blood Culture --Peak Flow Tx Scribe Attestation: Documented by Nery Subramanian, acting as a scribe for Bg Bland MD. Provider Scribe Attestation: All medical record entries made by the Scribe were at my direction and personally dictated by me. I have reviewed the chart and agree that the record accurately reflects my personal performance of the history, physical exam, medical decision making, and the department course for this patient. I have also personally directed, reviewed, and agree with the discharge instructions and disposition. Disposition - Clinical Impression Clinical Impression: COPD exacerbation - Patient ED Disposition Is Patient to be Admitted: No Counseled Patient/Family Regarding: Studies Performed, Diagnosis, Need For Followup, Rx Given - Disposition Referrals: [facility] [Outside] Disposition: Routine/Home Disposition Time: 13:41 Condition: FAIR Prescriptions: Albuterol HFA [Ventolin HFA 90 mcg/actuation (8 g)] 2 puff IH Q4H #1 puff Azithromycin [Zithromax] 250 mg PO DAILY #6 tab Prednisone 50 mg PO DAILY #5 tab Instructions: Exacerbation of COPD Forms: [employer] ([place]), [facility] ED School/Work Excuse
[2017-06-08] MEDS ORDERED: Albuterol 0.083% Inhal Sol (2.5 mg/3 mL) UD ONE (13:15)
[2017-06-08] MEDS: Albuterol-Ipratrop 3 mg / 0.5 (3 ml) UD IH STA (13:16)
[2017-06-08 14:16] VITALS: O2SAT 96
--- NOTE | 2017-06-08 14:22 | CARD ---
APPROVED REPORT EKG Measurement Heart [id number] [place] 156P45 [id number] <Conclusion> Normal sinus rhythm Minimal voltage criteria for LVH, may be normal variant Borderline ECG
--- NOTE | 2017-06-08 16:16 | RAD ---
HISTORY: Shortness of breath. COMPARISON: 03/20/2017 TECHNIQUE: Chest PA and lateral FINDINGS: LUNGS: No active pulmonary disease. Hyperinflation/manifestations of COPD. PLEURA: No significant pleural effusion identified. No pneumothorax apparent. CARDIOVASCULAR: No radiographic findings to suggest acute or significant cardiovascular disease. OSSEOUS STRUCTURES: Multilevel rib fractures bilaterally. VISUALIZED UPPER ABDOMEN: Normal. OTHER FINDINGS: None. IMPRESSION: No active disease. No significant interval change compared to the prior examination(s).
== END 2017-06-08 14:00 | disposition home or self-care (01) ==
LOC: H.ER 12:18
DX: J44.1 Chronic obstructive pulmonary disease with (acute) exacerbation (principal)

== ENCOUNTER 2017-06-19 07:43 | Emergency (ER) | payer MEDICARE, OTHER ==
[2017-06-19 07:48] VITALS: BMI 24.9
--- NOTE | 2017-06-19 08:42 | ED PDOC ---
HPI: Abdomen Time Seen by Provider: 06/19/17 07:59 Chief Complaint (Nursing): Abdominal Pain Chief Complaint (Provider): Abdominal pain, chest pain History Per: Patient History/Exam Limitations: no limitations Location Of Pain/Discomfort: Diffuse Associated Symptoms: Chest Pain Additional Complaint(s): 72yo female with history of COPD, presents to ED for evaluation of abdominal pain and chest pain which started since yesterday after she stopped drinking alcohol. Patient states she was feeling suicidal and was on a 5 day drinking binge but currently denies any suicidal or homicidal ideation. She reports an episode of diarrhea this morning but denies any fever, chills, or vomiting. She has no other medical complaints. PCP: Dr. Wei Wynn Past Medical History Reviewed: Historical Data, Nursing Documentation, Vital Signs Vital Signs: Last Vital Signs Temp 9 F L 06/19/17 12:46 Pulse 89 06/22/17 16:12 Resp 18 06/19/17 12:46 BP 168/90 H 06/19/17 12:53 Pulse Ox 99 06/22/17 16:12 - Medical History PMH: Anxiety, Arthritis (BACK , R SH), Bipolar Disorder, Colonic Polyps, COPD, Dementia (06/19/17 unable to verify), Depression, Fractures (right wrist fracture ), HTN, Hypercholesterolemia, Malignancy (squamous cell carcinoma of mouth/neck (2009)), Osteoporosis, Pneumonia, Post Traumatic Stress Disorder, Schizophrenia Denies: CHF, Diabetes, Hepatitis, HIV, Hypothyroidism, Chronic Kidney Disease , Rheumatoid Arthritis, Seizures, Sexually Transmitted Disease, TIA - Surgical History Other surgeries: Mouth and throat cancer surgery - Family History Family History: States: Unknown Family Hx - Immunization History Hx Tetanus Toxoid Vaccination: Yes (w/in the past "couple of years") Hx Influenza Vaccination: Yes Hx Pneumococcal Vaccination: No - Home Medications Home Medications: Ambulatory Orders Medication Instructions Recorded Atorvastatin Calcium 20 mg PO DAILY 03/20/17 Thiamine HCl [B-1] 100 mg PO DAILY 03/20/17 amLODIPine [Norvasc] 5 mg PO DAILY 03/20/17 Desvenlafaxine Succinate [Pristiq] 100 mg PO DAILY 04/19/17 Memantine HCl [Namenda Xr] 14 mg PO DAILY 04/19/17 Naltrexone [Revia] 50 mg PO DAILY 04/19/17 Albuterol HFA [Ventolin HFA 90 2 puff IH [id number] PRN #1 inhaler 04/28/17 mcg/actuation (8 g)] Fluticasone/Salmeterol 500/50 1 puff INH RQ12 30 Days 04/28/17 [Advair Diskus 500/50] Nicotine 21 mg/24 hr [Nicoderm Cq] 21 mg TD Q24H #30 patch 04/28/17 Tiotropium [place] Inhaler 1 inhaler INH ONCE #1 inhaler 04/28/17 [Spiriva Inhalation Handihaler Device] Tiotropium [Spiriva] 18 mcg INH RQ24 30 Days #30 cap 04/28/17 traZODone [Desyrel] 50 mg PO HS PRN #14 tab 04/28/17 Albuterol HFA [Ventolin HFA 90 2 puff IH Q4H #1 puff 06/08/17 mcg/actuation (8 g)] Ondansetron ODT [Zofran ODT] 4 mg PO Q8 PRN #12 odt 06/19/17 - Allergies Allergies/Adverse Reactions: Allergies Allergy/AdvReac Type Severity Reaction Status Date / Time No Known Allergies Allergy Verified 05/19/17 10:29 Review of Systems ROS Statement: Except As Marked, All Systems Reviewed And Found Negative Constitutional: Negative for: Fever, Chills Cardiovascular: Positive for: Chest Pain Respiratory: Positive for: Cough Gastrointestinal: Positive for: Abdominal Pain, Diarrhea. Negative for: Nausea , Vomiting Psych: Positive for: Withdrawal. Negative for: Suicidal ideation Physical Exam - Reviewed Nursing Documentation Reviewed: Yes Vital Signs Reviewed: Yes - Physical Exam Appears: Positive for: Uncomfortable (anxious) Head Exam: Positive for: ATRAUMATIC, NORMAL INSPECTION, NORMOCEPHALIC Skin: Positive for: Warm, Dry Eye Exam: Positive for: EOMI, PERRL ENT: Negative for: Pharyngeal Erythema, Tonsillar Exudate, Tonsillar Swelling Neck: Positive for: Supple Cardiovascular/Chest: Positive for: Regular Rate, Rhythm. Negative for: Tachycardia Respiratory: Positive for: Normal Breath Sounds. Negative for: Respiratory Distress Gastrointestinal/Abdominal: Positive for: Soft, Tenderness (epigastric ) Extremity: Positive for: Normal ROM. Negative for: Pedal Edema, Deformity Neurologic/Psych: Positive for: Alert, Oriented. Negative for: Motor/Sensory Deficits - Laboratory Results Result Diagrams: 06/19/17 09:21 06/19/17 10:05 - ECG ECG: Positive for: Interpreted By Me, Viewed By Me ECG Rhythm: Positive for: Sinus Rhythm. Negative for: Normal QRS, ST/T Changes Rate: 89 O2 Sat by Pulse Oximetry: 99 (RA) Pulse Ox Interpretation: Normal - Radiology X-Ray: Viewed By Me, Read By Radiologist X-Ray Interpretation: No Acute Disease, COPD - Progress Re-evaluation Time: 13:30 Condition: Re-examined, Improved Medical Decision Making Medical Decision Making: Impression: Abdominal pain, chest pain, depression w/ suicidal ideation. Chronic COPD currently stable. Differentials: Alcoholic Pancreatitis, gastritis, rule out ACS. Plan: -- Labs -- Pepcid 20 mg IVP -- Zofran 4mg IVP -- EKG Vital signs are stable. Labs reviewed. In my opinion there are no current acute medical conditions that contraindicate the placement of this patient in a psychiatric unit. Time: 1116 Patient currently pending crisis evaluation. 1430 Patient denies any complains at this time. She is significantly improved. She requests to be discharged. Cleared by psychiatrist for discharge. Patient is stable for discharge. Scribe Attestation: Documented by Mattie Goncalves acting as a scribe for Dulce Ho MD. Provider Attestation: All medical record entries made by the Scribe were at my direction and personally dictated by me. I have reviewed the chart and agree that the record accurately reflects my personal performance of the history, physical exam, medical decision making, and the department course for this patient. I have also personally directed, reviewed, and agree with the discharge instructions and disposition. Disposition - Clinical Impression Clinical Impression: Chest pain, Anxiety, Alcohol use disorder - Patient ED Disposition Is Patient to be Admitted: No Counseled Patient/Family Regarding: Studies Performed, Diagnosis, Need For Followup - Disposition Referrals: Wei Wynn [Family Provider] - Disposition: Routine/Home Disposition Time: 14:00 Condition: GOOD Additional Instructions: Follow up with your PCP in 2-3 days. Prescriptions: Ondansetron ODT [Zofran ODT] 4 mg PO Q8 PRN #12 odt PRN Reason: Nausea/Vomiting Instructions: Chest Pain, Alcohol Abuse and Alcoholism (DC)
--- NOTE | 2017-06-19 09:24 | RAD ---
HISTORY: chest pain COMPARISON: 06/08/2017 FINDINGS: LUNGS: No active pulmonary disease. PLEURA: No significant pleural effusion identified, no pneumothorax apparent. CARDIOVASCULAR: No CHF. Heart is unchanged in size. Aorta is unchanged. OSSEOUS STRUCTURES: No significant abnormalities. VISUALIZED UPPER ABDOMEN: Normal. OTHER FINDINGS: There is stable chronic eventration of the right hemidiaphragm. IMPRESSION: No active disease.
[2017-06-19 09:29] LABS: BENZODIAZEPINES, UR NEGATIVE (NEGATIVE)
[2017-06-19 10:15] LABS: BARBITURATES, UR NEGATIVE (NEGATIVE); OPIATES, UR NEGATIVE (NEGATIVE); PHENCYCLIDINE, UR NEGATIVE (NEGATIVE)
[2017-06-19 10:15] LABS: BASO # 0.1 K/uL (0.0-0.2); EOS % 0.4 % (0.0-4.0); HEMOGLOBIN 13.2 g/dL (12.0-16.0); LYMPH # 1.2 K/uL (1.0-4.3); LYMPH % 17.6 % (20.0-40.0); MEAN CELL VOLUME 101.3 fl (81.0-99.0); MEAN CORPUSCULAR HGB CONC 34.6 g/dL (33.0-37.0); MEAN PLATELET VOLUME 9.1 fl (7.2-11.7); MONO # 0.3 K/uL (0.0-0.8); MONO % 4.8 % (0.0-10.0); NEUT # 5.3 K/uL (1.8-7.0); NEUT % 76.2 % (50.0-75.0); NRBC % 0.3 % (0.0-0.0); RBC 3.77 Mil/uL (3.80-5.20); RED CELL DISTRIBUTION WIDTH 15.8 % (11.5-14.5)
[2017-06-19 10:26] LABS: ALB/GLOB RATIO 1.2 (1.0-2.1); ALBUMIN 3.7 g/dL (3.5-5.0); ALT/SGPT 39 U/L (9-52); AST/SGOT 30 U/L (14-36); BLOOD UREA NITROGEN 13 mg/dl (7-17); CALCIUM 8.8 mg/dL (8.4-10.2); GFR AFRICAN-AMERICAN > 60; GFR NON-AFRICAN AMERICAN > 60; LIPASE 41 U/L (23-300)
[2017-06-19 12:47] VITALS: PULSE 89; RESP 18; TEMP 9
[2017-06-19 12:54] VITALS: BP 168/90
--- NOTE | 2017-06-19 14:52 | CARD ---
APPROVED REPORT EKG Measurement Heart [id number] [place] 154P74 [id number] <Conclusion> Normal sinus rhythm Cannot rule out Anterior infarct, age undetermined Abnormal ECG
[2017-06-22 16:10] VITALS: O2SAT 99
== END 2017-06-19 15:14 | disposition home or self-care (01) ==
LOC: H.ER 07:43
DX: R07.89 Other chest pain (principal); F41.9 Anxiety disorder, unspecified; F10.10 Alcohol abuse, uncomplicated; F03.90 Unspecified dementia, unspecified severity, without behavioral disturbance, psychotic disturbance, mood disturbance, and anxiety; F31.9 Bipolar disorder, unspecified; J44.9 Chronic obstructive pulmonary disease, unspecified
CPT/HCPCS: 71045; 80053; 83690; 84484; 85025; 93005; 96374; 99285; G0480

== ENCOUNTER 2017-08-18 12:23 | Observation (INO) | payer MEDICARE, OTHER ==
[2017-08-18 12:23] VITALS: BMI 24.9
[2017-08-18] MEDS ORDERED: Sodium Chloride 0.9% 1,000 ML IV STA (12:44)
[2017-08-18] MEDS ORDERED: Albuterol-Ipratrop 3 mg / 0.5 (3 ml) UD IH STA ×2 (12:44→16:08)
[2017-08-18] MEDS ORDERED: Iohexol 240 (50 ml) PO ONE (12:47)
[2017-08-18] MEDS ORDERED: Iohexol 240 (50 ml) ONE (13:02)
[2017-08-18] MEDS ORDERED: Albuterol-Ipratrop 3 mg / 0.5 (3 ml) UD ONE (13:21)
--- NOTE | 2017-08-18 13:37 | ED PDOC ---
HPI: General Adult Time Seen by Provider: 08/18/17 12:32 Chief Complaint (Nursing): Chest Pain Chief Complaint (Provider): Abdominal Pain History Per: Patient History/Exam Limitations: no limitations Onset/Duration Of Symptoms: Days (x3) Current Symptoms Are (Timing): Still Present Additional Complaint(s): 72 y/o female with a pmhx of COPD, emphysema, HTN, hypercholesterolemia, and alcoholism, who presents to the ED due to abdominal pain x3 days. Patient reports she is an alcoholic and stopped drinking on 3 days ago. She reports abdominal pain, shaking, shortness of breath, vomiting, diarrhea, and an inability to sleep since she stopped drinking. She denies any chest pain, numbness, and weakness. Patient states she took Antacids without relief of her symptoms. No blood in vomit or diarrhea. PMD: [place] Past Medical History Reviewed: Historical Data, Nursing Documentation, Vital Signs Vital Signs: Last Vital Signs Temp 99 F 08/18/17 14:15 Pulse 98 H 08/18/17 14:15 Resp 18 08/18/17 14:15 BP 128/60 08/18/17 14:15 Pulse Ox 97 08/18/17 14:15 - Medical History PMH: Anxiety, Arthritis (BACK , R SH), Bipolar Disorder, Colonic Polyps, COPD, Dementia (06/19/17 unable to verify), Depression, Fractures (right wrist fracture ), HTN, Hypercholesterolemia, Malignancy (squamous cell carcinoma of mouth/neck (2009)), Post Traumatic Stress Disorder, Schizophrenia Denies: CHF, Diabetes, Hepatitis, HIV, Hypothyroidism, Chronic Kidney Disease , Rheumatoid Arthritis, Seizures, Sexually Transmitted Disease, TIA - Surgical History Surgical History: No Surg Hx - Family History Family History: States: Unknown Family Hx - Social History Alcohol: > 2 Drinks/Day - Immunization History Hx Tetanus Toxoid Vaccination: No Hx Influenza Vaccination: Yes Hx Pneumococcal Vaccination: Yes - Home Medications Home Medications: Ambulatory Orders Medication Instructions Recorded Atorvastatin Calcium 20 mg PO DAILY 03/20/17 amLODIPine [Norvasc] 5 mg PO DAILY 03/20/17 Naltrexone [Revia] 50 mg PO DAILY #30 tab 07/07/17 QUEtiapine [SEROquel] 25 mg PO HS #30 tab 07/07/17 hydrOXYzine HCl [Atarax] 25 mg PO Q8H PRN #30 tab 07/07/17 Albuterol HFA [Ventolin HFA 90 2 puff IH Q6 PRN 08/18/17 mcg/actuation (8 g)] Fluticasone/Salmeterol 500/50 1 puff INH Q12 08/18/17 [Advair Diskus 500/50] Folic Acid [Folic Acid] 1 mg PO DAILY 08/18/17 Losartan [Cozaar] 25 mg PO DAILY 08/18/17 Meloxicam [Mobic] 7.5 mg PO DAILY PRN 08/18/17 Multivitamin [Multi-Vitamin Daily] 1 tab PO DAILY 08/18/17 PARoxetine [Paxil] 10 mg PO DAILY 08/18/17 Tiotropium [Spiriva] 18 mcg INH DAILY 08/18/17 traZODone [Desyrel] 100 mg PO HS 08/18/17 - Allergies Allergies/Adverse Reactions: Allergies Allergy/AdvReac Type Severity Reaction Status Date / Time No Known Allergies Allergy Verified 08/18/17 12:27 Review of Systems ROS Statement: Except As Marked, All Systems Reviewed And Found Negative Cardiovascular: Negative for: Chest Pain Respiratory: Positive for: Shortness of Breath Gastrointestinal: Positive for: Vomiting, Abdominal Pain, Diarrhea Neurological: Negative for: Weakness, Numbness Physical Exam - Reviewed Nursing Documentation Reviewed: Yes Vital Signs Reviewed: Yes - Physical Exam Appears: Positive for: Non-toxic, No Acute Distress Head Exam: Positive for: ATRAUMATIC, NORMAL INSPECTION, NORMOCEPHALIC Skin: Positive for: Normal Color, Warm, Dry Eye Exam: Positive for: EOMI, Normal appearance, PERRL ENT: Positive for: Normal ENT Inspection. Negative for: Nasal Congestion, Pharyngeal Erythema Neck: Positive for: Normal, Painless ROM, Supple Cardiovascular/Chest: Positive for: Regular Rate, Rhythm. Negative for: Murmur Respiratory: Positive for: Decreased Breath Sounds (bilaterally). Negative for : Wheezing Gastrointestinal/Abdominal: Positive for: Soft, Tenderness (diffuse, mild) Back: Positive for: Normal Inspection. Negative for: L CVA Tenderness, R CVA Tenderness, Vertebral Tenderness Extremity: Positive for: Normal ROM. Negative for: Pedal Edema, Deformity Neurologic/Psych: Positive for: Alert, rater associate II-XII, Oriented. Negative for: Motor/Sensory Deficits - Laboratory Results Result Diagrams: 08/18/17 13:35 08/18/17 13:35 Interpretation Of Abn Labs: 2550 probnp - ECG ECG: Positive for: Interpreted By Me, Viewed By Me ECG Rhythm: Positive for: Sinus Rhythm, Nonspecific Changes O2 Sat by Pulse Oximetry: 99 (RA) Pulse Ox Interpretation: Normal - Radiology X-Ray: Read By Radiologist X-Ray Interpretation: No Acute Disease - CT Scan/US ct Other Rad Studies (CT/US): Read By Radiologist Other Rad Interpretation: gallstones - Progress ED Course And Treament: 1619: Spoke with Dr. Salvador. Will admit tele obs. Pain free. Medical Decision Making Medical Decision Makin:08 Initial Impression: Abdominal pain Plan: --CT abdomen and pelvis w/ IV contrast --EKG --Alcohol serum --BNP --CMP --Drug screen --Lipase --Troponin I --Urine dip --CBC --PTT/PT --CXR --Glucose, POC --Ativan 1mg IVP --Duoneb 3ml INH --Famotidine 20mg IVP --Morphine 4mg IV --1LNS --Iohexol 240 in 50ml --1:1 --Reevaluation Scribe Attestation: Documented by Blane Osman, acting as a scribe for Hakeem Hernandez MD. Provider Scribe Attestation: All medical record entries made by the Scribe were at my direction and personally dictated by me. I have reviewed the chart and agree that the record accurately reflects my personal performance of the history, physical exam, medical decision making, and the department course for this patient. I have also personally directed, reviewed, and agree with the discharge instructions and disposition. Disposition - Clinical Impression Clinical Impression: CHF exacerbation, COPD (chronic obstructive pulmonary disease), Alcohol dependence with withdrawal - Patient ED Disposition Is Patient to be Admitted: Yes Counseled Patient/Family Regarding: Studies Performed, Diagnosis - Disposition Disposition Time: 16:00 Condition: FAIR - Pt Status Changed To: Hospital Disposition Of: Observation - POA Present On Arrival: None
[2017-08-18 13:44] LABS: BASO # 0.1 K/uL (0.0-0.2); EOS % 0.4 % (0.0-4.0); HEMOGLOBIN 15.1 g/dL (12.0-16.0); LYMPH # 1.2 K/uL (1.0-4.3); LYMPH % 13.6 % (20.0-40.0); MEAN CELL VOLUME 99.4 fl (81.0-99.0); MEAN CORPUSCULAR HEMOGLOBIN 34.6 pg (27.0-31.0); MEAN CORPUSCULAR HGB CONC 34.8 g/dL (33.0-37.0); MEAN PLATELET VOLUME 9.2 fl (7.2-11.7); MONO # 0.7 K/uL (0.0-0.8); MONO % 7.6 % (0.0-10.0); NEUT # 6.7 K/uL (1.8-7.0); NEUT % 77.4 % (50.0-75.0); NRBC % 0.1 % (0.0-0.0); RBC 4.37 Mil/uL (3.80-5.20); RED CELL DISTRIBUTION WIDTH 16.2 % (11.5-14.5); WHITE BLOOD COUNT 8.7 K/uL (4.8-10.8)
--- NOTE | 2017-08-18 13:44 | RAD ---
HISTORY: dyspnea COMPARISON: 06/19/2017 FINDINGS: LUNGS: No active pulmonary disease. PLEURA: No significant pleural effusion identified, no pneumothorax apparent. CARDIOVASCULAR: No radiographic findings to suggest acute or significant cardiovascular disease. OSSEOUS STRUCTURES: No significant abnormalities. VISUALIZED UPPER ABDOMEN: Normal. OTHER FINDINGS: None. IMPRESSION: No active disease. No significant interval change compared to the prior examination(s).
[2017-08-18 13:53] LABS: INR 0.9 (0.9-1.2); PARTIAL THROMBOPLASTIN TIME 29.3 Seconds (25.6-37.1); PROTHROMBIN TIME 10.3 Seconds (9.8-13.1)
[2017-08-18 13:57] LABS: ALB/GLOB RATIO 1.2 (1.0-2.1); ALBUMIN 4.7 g/dL (3.5-5.0); CALCIUM 8.9 mg/dL (8.4-10.2); GFR AFRICAN-AMERICAN > 60; GFR NON-AFRICAN AMERICAN > 60; LIPASE 41 U/L (23-300)
[2017-08-18 14:07] LABS: ALT/SGPT 36 U/L (9-52); AST/SGOT 60 U/L (14-36); BLOOD UREA NITROGEN 12 mg/dl (7-17)
[2017-08-18 14:08] LABS: B-TYPE NATRIURETIC PEPTIDE 2550 pg/ml (0-900)
[2017-08-18] MEDS ORDERED: Iohexol 300 100 ML IJ ONE (15:12)
[2017-08-18] MEDS ORDERED: Sodium Chloride 0.9% 100 ML ONE (15:12)
--- NOTE | 2017-08-18 15:59 | CT ---
PROCEDURE: CT Abdomen and Pelvis with contrast HISTORY: abd pain COMPARISON: None. TECHNIQUE: Contrast dose: 90 mL of Omnipaque 300 Radiation dose: Total exam DLP = 508 mGy-cm. This CT exam was performed using one or more of the following dose reduction techniques: Automated exposure control, adjustment of the mA and/or kV according to patient size, and/or use of iterative reconstruction technique. FINDINGS: LOWER THORAX: In the lingula extreme left lateral lung base 81.2 cm pulmonary nodule is noted this is not appreciated as such on the prior CT abdomen and pelvic with contrast study dated 04/12/2015. For this a noncontrast CT chest exam is recommended. LIVER: Diffuse fatty infiltration the liver noted. The central periportal bile ducts appear prominent No gross lesion or ductal dilatation. GALLBLADDER AND BILE DUCTS: The extrahepatic bile ducts appear interval increased in size inconstant acuity compared the prior study. Non dilated apparent gallbladder with calculi with in it appears posterior to the dilated common bile duct on these axial images this appearance of the inferred nondistended gallbladder with calculi within it and/or with and/or with calcification within its wall is similar in appearance. I am not aware that the patient had any interval MRCP as had been previously recommended . There appears to be more than 1 dilated duct or I conceivably markedly ectatic single extra hepatic bile duct on the current study lateral to the portal vein. PANCREAS: The pancreas is markedly atrophic and fatty infiltrated. . A tiny ampullary lesion and/or tiny stenosis here cannot be entirely excluded given the right lateral bordering prominent common bile duct. SPLEEN: Unremarkable. ADRENALS: Unremarkable. No mass. KIDNEYS AND URETERS: Bilateral renal cortical atrophy. No intrarenal hydronephrosis. Right extra renal pelviectasis noted. No solid mass. VASCULATURE: Extensive atherosclerotic vascular calcifications present. . No aortic aneurysm. BOWEL: Redundant bowel loops. No obstruction. No gross mural thickening. APPENDIX: Normal appendix. PERITONEUM: Unremarkable. No free fluid. No free air. LYMPH NODES: Unremarkable. No enlarged lymph nodes. BLADDER: Unremarkable. REPRODUCTIVE: Unremarkable. BONES: Multiple old appearing rib fractures are present. [place] lumbar spondylosis noted. OTHER FINDINGS: None. IMPRESSION: The abnormal appearance to the gallbladder concerning for gallstones and gallbladder wall wall possible calcifications an bordering prominent extrahepatic bile ducts are renoted. The extrahepatic bile ducts have increased in caliber in conspicuity. No distal obstructing lesion is identified. Consider MRCP to further evaluate. Noted on this exam in the lingula is a 1.2 cm pulmonary nodule not appreciated such on the prior study. An elective CT chest exam without contrast is recommended for its further evaluation.
--- NOTE | 2017-08-18 16:46 | CP.PCM.HP ---
History of Present Illness - History of Present Illness History of Present Illness: 72 yo female with history of Alcoholism, COPD and HTN came in because of abdominal pain, shakiness and SOB associated with coughing productive with clear sputum. She claimed she drinks about a half a pint of Vodka per day but has stopped like 3 days ago. Denied fever or chills. Present on Admission - Present on Admission Any Indicators Present on Admission: No History of DVT/PE: No History of Uncontrolled Diabetes: No Urinary Catheter: No Decubitus Ulcer Present: No Review of Systems - Review of Systems All systems: reviewed and no additional remarkable complaints except (aside from those mentioned above, 12 point system review were negative by me) Past Patient History - Infectious Disease Hx of Infectious Diseases: None - Tetanus Immunizations Tetanus Immunization: Unknown - Past Medical History & Family History Past Medical History?: Yes - Past Social History Alcohol: > 2 Drinks/Day - CARDIAC Hx Congestive Heart Failure: No Hx Hypercholesterolemia: Yes Hx Hypertension: Yes - PULMONARY Hx Chronic Obstructive Pulmonary Disease (COPD): Yes - NEUROLOGICAL Hx Dementia: Yes (06/19/17 unable to verify) Hx Seizures: No Hx Transient Ischemic Attacks (TIA): No - HEENT Hx HEENT Problems: No - RENAL Hx Chronic Kidney Disease: No - ENDOCRINE/METABOLIC Hx Hypothyroidism: No - HEMATOLOGICAL/ONCOLOGICAL Hx Human Immunodeficiency Virus (HIV): No - INTEGUMENTARY Hx Squamous Cell: Yes (No Chemo treatment; surgery 10 yrs ago at [facility]) - MUSCULOSKELETAL/RHEUMATOLOGICAL Hx Arthritis: Yes (BACK , R SH) Hx Fractures: Yes (right wrist fracture) Hx Rheumatoid Arthritis: No - GASTROINTESTINAL Hx Gastrointestinal Disorders: No - GENITOURINARY/GYNECOLOGICAL Hx Sexually Transmitted Disorders: No - PSYCHIATRIC Hx Anxiety: Yes Hx Bipolar Disorder: Yes Hx Depression: Yes Hx Post Traumatic Stress Disorder: Yes Hx Schizophrenia: Yes - SURGICAL HISTORY Hx Hysterectomy: Yes (Partial) Other/Comment: mouth and neck CA SX - ANESTHESIA Hx Anesthesia: Yes Hx Anesthesia Reactions: No Hx Malignant Hyperthermia: No Meds Allergies/Adverse Reactions: Allergies Allergy/AdvReac Type Severity Reaction Status Date / Time No Known Allergies Allergy Verified 08/18/17 12:27 Results - Vital Signs Recent Vital Signs: Last Vital Signs Temp 99 F 08/18/17 14:15 Pulse 98 H 08/18/17 14:15 Resp 18 08/18/17 14:15 BP 134/87 08/18/17 16:20 Pulse Ox 99 08/18/17 16:21 - Labs Result Diagrams: 08/18/17 13:35 08/18/17 13:35 Labs: Laboratory Results - last 24 hr 08/18/17 08/18/17 08/18/17 12:54 13:35 13:35 WBC 8.7 RBC 4.37 Hgb 15.1 Hct 43.4 MCV 99.4 H MCH 34.6 H MCHC 34.8 RDW 16.2 H Plt Count 155 MPV 9.2 Neut % (Auto) 77.4 H Lymph % (Auto) 13.6 L [place] % (Auto) 7.6 Eos % (Auto) 0.4 Baso % (Auto) 1.0 Neut # (Auto) 6.7 Lymph # (Auto) 1.2 [place] # (Auto) 0.7 Eos # (Auto) 0.0 Baso # (Auto) 0.1 PT INR APTT Sodium 141 Potassium 3.7 Chloride 102 Carbon Dioxide 20 L Anion Gap 23 H BUN 12 Creatinine 0.8 Est GFR ( Amer) > 60 Est GFR (Non-Af Amer) > 60 POC Glucose (mg/dL) 153 H Random Glucose 150 H Calcium 8.9 Total Bilirubin 1.7 H AST 60 H D ALT 36 Alkaline Phosphatase 88 Troponin I < 0.0120 NT-Pro-B Natriuret Pep 2550 H Total Protein 8.4 H Albumin 4.7 Globulin 3.8 Albumin/Globulin Ratio 1.2 Lipase 41 Alcohol, Quantitative < 10 08/18/17 13:35 WBC RBC Hgb Hct MCV MCH MCHC RDW Plt Count MPV Neut % (Auto) Lymph % (Auto) [place] % (Auto) Eos % (Auto) Baso % (Auto) Neut # (Auto) Lymph # (Auto) [place] # (Auto) Eos # (Auto) Baso # (Auto) PT 10.3 INR 0.9 APTT 29.3 Sodium Potassium Chloride Carbon Dioxide Anion Gap BUN Creatinine Est GFR ( Amer) Est GFR (Non-Af Amer) POC Glucose (mg/dL) Random Glucose Calcium Total Bilirubin AST ALT Alkaline Phosphatase Troponin I NT-Pro-B Natriuret Pep Total Protein Albumin Globulin Albumin/Globulin Ratio Lipase Alcohol, Quantitative Assessment & Plan - Assessment and Plan (Free Text) Assessment: 72 yo female with history of Alcoholism, COPD and HTN came in because of abdominal pain, shakiness and SOB associated with coughing productive with clear sputum. She claimed she drinks about a half a pint of Vodka per day but has stopped like 3 days ago. Denied fever or chills. 1. Alcohol withdrawal Ativan 1mg IV q 4hrs prn for agitation Librium 25mg PO q 8hrs Thiamine 100mg PO daily Folic Acid 1mg PO daily 2. COPD Exacerbation Albuterol nebulizer q 4hrs prn Duoneb nebulizer QID SoluMedrol 40mg IVPB q 8hrs Advair 1 puff q 12hrs 3. HTN BP stable continue Amlodipine and Losartan 4. Depression continue Paxil and Trazodone 5. DVT prophylaxis Lovenox 40mg SC daily
--- NOTE | 2017-08-18 17:48 | CARD ---
APPROVED REPORT EKG Measurement Heart [id number] <Conclusion> Sinus tachycardia Possible Left atrial enlargement Left axis deviation Anterior infarct, age undetermined Abnormal ECG
[2017-08-18] MEDS ORDERED: Albuterol 0.083% Inhal Sol (2.5 mg/3 mL) UD INH PRN (17:51)
--- NOTE | 2017-08-18 17:55 | US ---
HISTORY: Right upper quadrant and epigastric pain COMPARISON: 04/12/2015 TECHNIQUE: Sonographic evaluation of the right upper quadrant of the abdomen. FINDINGS: LIVER: Measures 7.7 cm in length. Normal echogenicity of the liver parenchyma. No mass. No intrahepatic bile duct dilatation. GALLBLADDER: Obscured by overlying bowel gas. Non diagnostic assessment of the gallbladder COMMON BILE DUCT: Measures 4.3 mm. No stones. No dilatation. PANCREAS: Unremarkable as visualized. No mass. No ductal dilatation. RIGHT KIDNEY: Measures 4.5 x 8.3 cm in length. Normal echogenicity. No calculus, mass, or hydronephrosis. AORTA: No aneurysmal dilatation. IVC: Unremarkable. OTHER FINDINGS: None . IMPRESSION: No acute findings related to/accounting for the clinical presentation. Limitations of the current examination: Nondiagnostic assessment of the gallbladder and pancreas.
[2017-08-18 18:03] LABS: BARBITURATES, UR NEGATIVE (NEGATIVE); BENZODIAZEPINES, UR NEGATIVE (NEGATIVE); OPIATES, UR POSITIVE (NEGATIVE); PHENCYCLIDINE, UR NEGATIVE (NEGATIVE)
[2017-08-18 18:17] LABS: SQUAMOUS EPITHIAL 6 /hpf (0-5); URINE BILIRUBIN NEGATIVE (NEGATIVE); URINE BLOOD NEGATIVE (NEGATIVE); URINE CLARITY SLIGHTY-CLOUDY (Clear); URINE COLOR YELLOW (YELLOW); URINE GLUCOSE (UA) NEG (Normal); URINE LEUKOCYTE ESTERASE NEG Leu/uL (Negative); URINE PROTEIN 100 mg/dL (NEGATIVE); URINE UROBILINOGEN 0.2-1.0 mg/dL (0.2-1.0)
[2017-08-18] MEDS: MethylPREDNISolone 40 mg Vial IVP SCH (19:26)
[2017-08-18] MEDS ORDERED: Albuterol-Ipratrop 3 mg / 0.5 (3 ml) UD INH SCH (20:00)
[2017-08-18] MEDS: Fluticasone-Salmeterol 500-50mcg Diskus INH SCH (22:04)
[2017-08-19 00:04] VITALS: RESP 18
[2017-08-19] MEDS ORDERED: methylPREDNISolone 40 MG in Sodium Chloride 0.9% 50 ML IVPB SCH (01:00)
[2017-08-19] MEDS: MethylPREDNISolone 40 mg Vial IVP SCH (02:30)
[2017-08-19 05:44] LABS: BASO % 0.2 % (0.0-2.0); HEMOGLOBIN 13.3 g/dL (12.0-16.0); LYMPH # 0.5 K/uL (1.0-4.3); LYMPH % 11.8 % (20.0-40.0); MEAN CELL VOLUME 100.2 fl (81.0-99.0); MEAN CORPUSCULAR HEMOGLOBIN 34.2 pg (27.0-31.0); MEAN CORPUSCULAR HGB CONC 34.1 g/dL (33.0-37.0); MEAN PLATELET VOLUME 9.2 fl (7.2-11.7); MONO # 0.1 K/uL (0.0-0.8); MONO % 3.3 % (0.0-10.0); NEUT # 3.7 K/uL (1.8-7.0); NEUT % 84.7 % (50.0-75.0); NRBC % 0.1 % (0.0-0.0); RBC 3.88 Mil/uL (3.80-5.20); RED CELL DISTRIBUTION WIDTH 16.1 % (11.5-14.5); WHITE BLOOD COUNT 4.3 K/uL (4.8-10.8)
[2017-08-19 05:58] LABS: BLOOD UREA NITROGEN 19 mg/dl (7-17); GFR AFRICAN-AMERICAN > 60; GFR NON-AFRICAN AMERICAN > 60
[2017-08-19 07:42] VITALS: BP 132/76; PULSE 93; TEMP 98.7; O2SAT 94
[2017-08-19] MEDS: Fluticasone-Salmeterol 500-50mcg Diskus INH SCH (08:38)
[2017-08-19] MEDS ORDERED: Multivitamin With Minerals Tab PO SCH (09:00)
[2017-08-19] MEDS ORDERED: Tiotropium 18 mcg Cap For Inhalation INH SCH (09:00)
[2017-08-19] MEDS ORDERED: Pantoprazole 40 mg EC Tab PO SCH (09:00)
[2017-08-19] MEDS ORDERED: Enoxaparin 40 mg Syringe SC SCH (09:00)
[2017-08-19] MEDS ORDERED: Patient's Own Med (Multivitamin [Multi-Vitamin Daily] 1 TAB) PO SCH (09:00)
--- NOTE | 2017-08-19 12:09 | CP.PCM.DIS ---
Provider - Provider Date of Admission: 08/18/17 16:21 Attending physician: José Salvador MD Time Spent in preparation of Discharge (in minutes): 30 Hospital Course - Lab Results Lab Results: Most Recent Lab Values WBC 4.3 K/uL (4.8-10.8) L D 08/19/17 04:45 RBC 3.88 Mil/uL (3.80-5.20) 08/19/17 04:45 Hgb 13.3 g/dL (12.0-16.0) 08/19/17 04:45 Hct 38.9 % (34.0-47.0) 08/19/17 04:45 MCV 100.2 fl (81.0-99.0) H 08/19/17 04:45 MCH 34.2 pg (27.0-31.0) H 08/19/17 04:45 MCHC 34.1 g/dL (33.0-37.0) 08/19/17 04:45 RDW 16.1 % (11.5-14.5) H 08/19/17 04:45 Plt Count 109 K/uL (130-400) L D 08/19/17 04:45 MPV 9.2 fl (7.2-11.7) 08/19/17 04:45 Neut % (Auto) 84.7 % (50.0-75.0) H 08/19/17 04:45 Lymph % (Auto) 11.8 % (20.0-40.0) L 08/19/17 04:45 [place] % (Auto) 3.3 % (0.0-10.0) 08/19/17 04:45 Eos % (Auto) 0.0 % (0.0-4.0) 08/19/17 04:45 Baso % (Auto) 0.2 % (0.0-2.0) 08/19/17 04:45 Neut # (Auto) 3.7 K/uL (1.8-7.0) 08/19/17 04:45 Lymph # (Auto) 0.5 K/uL (1.0-4.3) L 08/19/17 04:45 [place] # (Auto) 0.1 K/uL (0.0-0.8) 08/19/17 04:45 Eos # (Auto) 0.0 K/uL (0.0-0.7) 08/19/17 04:45 Baso # (Auto) 0.0 K/uL (0.0-0.2) 08/19/17 04:45 PT 10.3 Seconds (9.8-13.1) 08/18/17 13:35 INR 0.9 (0.9-1.2) 08/18/17 13:35 APTT 29.3 Seconds (25.6-37.1) 08/18/17 13:35 Sodium 139 mmol/l (132-148) 08/19/17 04:45 Potassium 3.8 MMOL/L (3.6-5.0) 08/19/17 04:45 Chloride 100 mmol/L (98-107) 08/19/17 04:45 Carbon Dioxide 23 mmol/L (22-30) 08/19/17 04:45 Anion Gap 20 (10-20) 08/19/17 04:45 BUN 19 mg/dl (7-17) H 08/19/17 04:45 Creatinine 0.8 mg/dl (0.7-1.2) 08/19/17 04:45 Est GFR ( Amer) > 60 08/19/17 04:45 Est GFR (Non-Af Amer) > 60 08/19/17 04:45 POC Glucose (mg/dL) 153 mg/dL (65-110) H 08/18/17 12:54 Random Glucose 152 mg/dL (65-105) H 08/19/17 04:45 Calcium 8.0 mg/dL (8.4-10.2) L 08/19/17 04:45 Total Bilirubin 1.7 mg/dl (0.2-1.3) H 08/18/17 13:35 AST 60 U/L (14-36) H D 08/18/17 13:35 ALT 36 U/L (9-52) 08/18/17 13:35 Alkaline Phosphatase 88 U/L (38-126) 08/18/17 13:35 Troponin I < 0.0120 ng/mL (0.00-0.120) 08/18/17 13:35 NT-Pro-B Natriuret Pep 2550 pg/ml (0-900) H 08/18/17 13:35 Total Protein 8.4 G/DL (6.3-8.2) H 08/18/17 13:35 Albumin 4.7 g/dL (3.5-5.0) 08/18/17 13:35 Globulin 3.8 gm/dL (2.2-3.9) 08/18/17 13:35 Albumin/Globulin Ratio 1.2 (1.0-2.1) 08/18/17 13:35 Lipase 41 U/L (23-300) 08/18/17 13:35 Urine Color Yellow (YELLOW) 08/18/17 17:58 Urine Clarity Slighty-cloudy (Clear) 08/18/17 17:58 Urine pH 6.0 (5.0-8.0) 08/18/17 17:58 Ur Specific [place] 1.036 (1.003-1.030) H 08/18/17 17:58 Urine Protein 100 mg/dL (NEGATIVE) 08/18/17 17:58 Urine Glucose (UA) Neg mg/dL (Normal) 08/18/17 17:58 Urine Ketones 20 mg/dL (NEGATIVE) 08/18/17 17:58 Urine Blood Negative (NEGATIVE) 08/18/17 17:58 Urine Nitrate Negative (NEGATIVE) 08/18/17 17:58 Urine Bilirubin Negative (NEGATIVE) 08/18/17 17:58 Urine Urobilinogen 0.2-1.0 mg/dL (0.2-1.0) 08/18/17 17:58 Ur Leukocyte Esterase Neg [place]/uL (Negative) 08/18/17 17:58 Urine RBC (Auto) 2 /hpf (0-3) 08/18/17 17:58 Urine Microscopic WBC 1 /hpf (0-5) 08/18/17 17:58 Ur Squamous Epith Cells 6 /hpf (0-5) H 08/18/17 17:58 Urine Opiates Screen Positive (NEGATIVE) H 08/18/17 17:20 Urine Methadone Screen Negative (NEGATIVE) 08/18/17 17:20 Ur Barbiturates Screen Negative (NEGATIVE) 08/18/17 17:20 Ur Phencyclidine Scrn Negative (NEGATIVE) 08/18/17 17:20 Ur Amphetamines Screen Negative (NEGATIVE) 08/18/17 17:20 U Benzodiazepines Scrn Negative (NEGATIVE) 08/18/17 17:20 U Oth Cocaine Metabols Negative (NEGATIVE) 08/18/17 17:20 U Cannabinoids Screen Negative (NEGATIVE) 08/18/17 17:20 Alcohol, Quantitative < 10 mg/dl (0-10) 08/18/17 13:35 - Hospital Course Hospital Course: 72 yo female with history of Alcoholism, COPD and HTN came in because of abdominal pain, shakiness and SOB associated with coughing productive with clear sputum. She claimed she drinks about a half a pint of Vodka per day but has stopped 3 days prior to admission. Denied fever or chills. Patient also complained of abdominal pain yesterday, CT showed gallstones as well as prominent extrahepatic bile ducts. TBili was 1.7 yesterday. Would have obtained MRCP today, however patient signed AMA. Patient advised to follow up with her primary care doctor and Gastroenterology. Patient did not have any tremors or signs of withdrawal this morning. When asked this morning if patient continued to have abdominal pain she stated she no longer had pain and that it had resolved completely, denied constipation/ diarrhea/nausea/vomiting. Abdominal exam was benign. It was explained that Morphine, Librium, and Ativan were given as needed, not scheduled. Patient expressed understanding. Patient then demanded both Morphine and Libirum from nurse, who again explained the same. Patient stated she wanted to sign out AMA, and quickly did so, before I was able to see and examine the patient again. Discharge Exam - Head Exam Head Exam: ATRAUMATIC, NORMOCEPHALIC - Eye Exam Eye Exam: EOMI, Normal appearance, PERRL - ENT Exam ENT Exam: Mucous Membranes Moist, Normal Oropharynx - Respiratory Exam Respiratory Exam: Clear to PA & Lateral, NORMAL BREATHING PATTERN - Cardiovascular Exam Cardiovascular Exam: RRR, +S1, +S2 - GI/Abdominal Exam GI & Abdominal Exam: Normal Bowel Sounds, Soft. absent: Distended, Guarding, Mass, Organomegaly, Rebound, Rigid, Tenderness - Extremities Exam Extremities exam: normal capillary refill, pedal pulses present - Back Exam Back exam: absent: CVA tenderness (L), CVA tenderness (R) - Neurological Exam Neurological exam: Alert, Oriented x3 - Psychiatric Exam Psychiatric exam: Normal Affect, Normal Mood - Skin Skin Exam: Dry, Normal Color Discharge Plan - Follow Up Plan Condition: FAIR Disposition: AGAINST MEDICAL ADVICE Instructions: Acute Abdominal Pain (DC), Acute Abdominal Pain (GEN)
== END 2017-08-19 10:26 | disposition left against medical advice (07) ==
LOC: H.ER 12:23 → H.ERHOLD 16:21 → H.TEL 20:28
DX: F10.231 Alcohol dependence with withdrawal delirium (principal); Y90.0 Blood alcohol level of less than 20 mg/100 ml; J44.1 Chronic obstructive pulmonary disease with (acute) exacerbation; I10 Essential (primary) hypertension; K80.20 Calculus of gallbladder without cholecystitis without obstruction; E78.00 Pure hypercholesterolemia, unspecified; F41.9 Anxiety disorder, unspecified; M19.90 Unspecified osteoarthritis, unspecified site; F31.9 Bipolar disorder, unspecified; F03.90 Unspecified dementia, unspecified severity, without behavioral disturbance, psychotic disturbance, mood disturbance, and anxiety; F43.10 Post-traumatic stress disorder, unspecified; F20.9 Schizophrenia, unspecified
CPT/HCPCS: 36415; 71045; 74177; 76705; 80048; 80053; 81003; 82948; 83690; 83880; 84484; 85025; 85610; 85730; 93005; 94640; 96374; 99285; G0378; G0480; J1940; J2060; J2270; J2930; J7040; Q9966; Q9967

== ENCOUNTER 2017-12-20 19:37 | Emergency (ER) | payer MEDICARE, OTHER ==
[2017-12-20 19:37] VITALS: BMI 24.9
[2017-12-20] MEDS ORDERED: Multivitamin (MVI) 10 ML, Folic Acid 1 MG, Thiamine 100 MG in Dextrose 5%/0.45% NS 1,00... IV ONE (19:51)
[2017-12-20 20:24] LABS: BASO # 0.1 K/uL (0.0-0.2); BASO % 1.2 % (0.0-2.0); EOS % 0.8 % (0.0-4.0); LYMPH # 1.2 K/uL (1.0-4.3); LYMPH % 21.3 % (20.0-40.0); MEAN CELL VOLUME 103.6 fl (81.0-99.0); MEAN CORPUSCULAR HEMOGLOBIN 35.2 pg (27.0-31.0); MEAN CORPUSCULAR HGB CONC 33.9 g/dL (33.0-37.0); MEAN PLATELET VOLUME 8.8 fl (7.2-11.7); MONO # 0.7 K/uL (0.0-0.8); MONO % 11.8 % (0.0-10.0); NEUT # 3.8 K/uL (1.8-7.0); NEUT % 64.9 % (50.0-75.0); RBC 3.69 Mil/uL (3.80-5.20); RED CELL DISTRIBUTION WIDTH 18.1 % (11.5-14.5); WHITE BLOOD COUNT 5.9 K/uL (4.8-10.8)
[2017-12-20 20:26] LABS: INR 0.9; PROTHROMBIN TIME 10.3 Seconds (9.8-13.1)
[2017-12-20 20:29] LABS: PARTIAL THROMBOPLASTIN TIME 27.2 Seconds (25.6-37.1)
[2017-12-20 20:44] LABS: ALB/GLOB RATIO 1.3 (1.0-2.1); ALBUMIN 4.5 g/dL (3.5-5.0); ALT/SGPT 213 U/L (9-52); AST/SGOT 270 U/L (14-36); BLOOD UREA NITROGEN 26 mg/dl (7-17); CALCIUM 10.3 mg/dL (8.4-10.2); GFR NON-AFRICAN AMERICAN 54
--- NOTE | 2017-12-20 22:00 | ED PDOC ---
HPI: Psych/Substance Abuse Time Seen by Provider: 12/20/17 19:50 Chief Complaint (Nursing): Psychiatric Evaluation Chief Complaint (Provider): Psychiatric Evaluation History Per: Patient History/Exam Limitations: no limitations Onset/Duration Of Symptoms: Hrs Current Symptoms Are (Timing): Still Present Additional Complaint(s): 72 y/o female, well known to the provider for multiple visits, brought to the ED after being found unable to get into her apartment. Patient appeared confused thus prompting EMS to bring her to the hospital. Patient offers no complaints on arrival to the ED. Patient noted to have scattered ecchymosis to the forehead as well as other various parts of her body. Patient admits to falling one week ago. PMD: Jared Wynn Past Medical History Reviewed: Historical Data, Nursing Documentation, Vital Signs Vital Signs: Last Vital Signs Temp 100 F H 12/20/17 19:39 Pulse 98 H 12/20/17 19:39 Resp 18 12/20/17 19:39 BP 143/75 12/20/17 19:39 Pulse Ox 99 12/20/17 19:39 - Medical History PMH: Anxiety, Arthritis, Bipolar Disorder, Colonic Polyps, COPD, Dementia, Depression, Fractures (right wrist fracture), HTN, Hypercholesterolemia, Malignancy (squamous cell carcinoma of mouth/neck (2009)), Osteoporosis, Pneumonia, Post Traumatic Stress Disorder, Schizophrenia Denies: CHF, Diabetes, Hepatitis, HIV, Hypothyroidism, Chronic Kidney Disease , Rheumatoid Arthritis, Seizures, Sexually Transmitted Disease, TIA - Surgical History Surgical History: No Surg Hx - Family History Family History: States: Unknown Family Hx - Immunization History Hx Tetanus Toxoid Vaccination: No Hx Influenza Vaccination: Yes Hx Pneumococcal Vaccination: Yes - Home Medications Home Medications: Ambulatory Orders Medication Instructions Recorded Atorvastatin Calcium 20 mg PO DAILY 03/20/17 amLODIPine [Norvasc] 5 mg PO DAILY 03/20/17 Naltrexone [Revia] 50 mg PO DAILY #30 tab 07/07/17 QUEtiapine [SEROquel] 25 mg PO HS #30 tab 07/07/17 hydrOXYzine HCl [Atarax] 25 mg PO Q8H PRN #30 tab 07/07/17 Albuterol HFA [Ventolin HFA 90 2 puff IH Q6 PRN 08/18/17 mcg/actuation (8 g)] Fluticasone/Salmeterol 500/50 1 puff INH Q12 08/18/17 [Advair Diskus 500/50] Folic Acid 1 mg PO DAILY 08/18/17 Losartan [Cozaar] 25 mg PO DAILY 08/18/17 Meloxicam [Mobic] 7.5 mg PO DAILY PRN 08/18/17 Multivitamin [Multi-Vitamin Daily] 1 tab PO DAILY 08/18/17 PARoxetine [Paxil] 10 mg PO DAILY 08/18/17 Tiotropium [Spiriva] 18 mcg INH DAILY 08/18/17 traZODone [Desyrel] 100 mg PO HS 08/18/17 Ondansetron ODT [Zofran ODT] 4 mg PO TID PRN #12 odt 08/21/17 Pantoprazole Sodium [Protonix] 40 mg PO DAILY #12 ect 08/21/17 Albuterol HFA [Ventolin HFA 90 1 puff INH RQ6 PRN inhaler 10/31/17 mcg/actuation (8 g)] Folic Acid 1 mg PO DAILY tab 10/31/17 Multivitamins [Hexavitamin] 1 tab PO DAILY tab 10/31/17 Sulfamethoxazole/Trimethoprim 1 tab PO Q12H 2 Days #4 tab 10/31/17 [Bactrim DS Tab] traZODone [Desyrel] 100 mg PO HS PRN 30 Days #30 tab 10/31/17 - Allergies Allergies/Adverse Reactions: Allergies Allergy/AdvReac Type Severity Reaction Status Date / Time No Known Allergies Allergy Verified 08/18/17 12:27 Review of Systems ROS Statement: Except As Marked, All Systems Reviewed And Found Negative ([place]) Psych: Positive for: Other (Crisis Evaluation ) Physical Exam - Reviewed Nursing Documentation Reviewed: Yes Vital Signs Reviewed: Yes - Physical Exam Appears: Positive for: No Acute Distress (poor state of hygiene) Head Exam: Negative for: NORMAL INSPECTION (Ecchymosis to the left fore part of the forehead. ) Eye Exam: Positive for: Normal appearance, EOMI, PERRL Neck: Positive for: Normal, Painless ROM, Supple Cardiovascular/Chest: Positive for: Regular Rate, Rhythm. Negative for: Murmur Respiratory: Positive for: Normal Breath Sounds. Negative for: Respiratory Distress Gastrointestinal/Abdominal: Positive for: Normal Exam, Soft. Negative for: Tenderness Extremity: Positive for: Normal ROM. Negative for: Deformity Neurologic/Psych: Positive for: Alert, Oriented. Negative for: Motor/Sensory Deficits - Laboratory Results Result Diagrams: 12/20/17 20:16 12/20/17 20:16 - ECG O2 Sat by Pulse Oximetry: 99 (RA) Pulse Ox Interpretation: Normal Medical Decision Making Medical Decision Making: Time: 2019 Impression: 72 y/o female with crisis evaluation, insetting of known alcoholism Plan: -- CT Head w/o Contrast -- EKG -- Alcohol Serum -- CMP -- Urine Drug Screen -- Magnesium -- ED Urine Dipstick -- CBC with differentials -- PTT -- Prothrombin Time -- Glucose, POC -- Dextrose 5%/0.45% NS 1000 ml Multivitamin MVI-12 Inj 10 ml Folic Acid 1 mg Vitamin B1 Inj 100 mg IV 125 mls/hr -- Heplock Insertion -- Accucheck -- Urinalysis Time: [address] RESULTS FINDINGS: BRAIN: Involutional changes. Periventricular hypoattenuation suggestive of chronic ischemic changes. No hemorrhage. VENTRICLES: No ventriculomegaly. BONES/JOINTS: Unremarkable. No acute fracture. SOFT TISSUES: Unremarkable. VASCULATURE: Atherosclerosis. SINUSES: Mild fluid sphenoid sinuses. MASTOID AIR CELLS: Unremarkable as visualized. No mastoid effusion. IMPRESSION: 1. Involutional changes. Periventricular hypoattenuation suggestive of chronic ischemic changes. 2. Mild fluid sphenoid sinuses. Thank you for allowing us to participate in the care of your patient. Dictated and Authenticated by: Sheba Galvez MD 12/20/2017 9:16 PM Eastern Time ([place] & [place]) 0150 Labs reviewed and show no significant abnormality. Patient evaluated by crisis and stable for discharge. Scribe Attestation: Documented by Freedom Mcleod acting as a scribe for Gallo Copeland MD Provider Scribe Attestation: All medical record entries made by the Scribe were at my direction and personally dictated by me. I have reviewed the chart and agree that the record accurately reflects my personal performance of the history, physical exam, medical decision making, and the department course for this patient. Disposition - Clinical Impression Clinical Impression: Adjustment disorder, Alcoholism - Patient ED Disposition Is Patient to be Admitted: No - Disposition Disposition Time: 01:50 Condition: STABLE Instructions: Adjustment Disorder Forms: IN[employer]TA (Yoruba)
[2017-12-21 06:42] VITALS: BP 155/87; PULSE 74; RESP 16; TEMP 97.9; O2SAT 98
--- NOTE | 2017-12-21 09:10 | CARD ---
APPROVED REPORT Date of service: 12/20/2017 <Conclusion> Normal sinus rhythm Left axis deviation Minimal voltage criteria for LVH, may be normal variant Nonspecific ST and T wave abnormality Abnormal ECG
--- NOTE | 2017-12-21 10:56 | CT ---
Date of service: 12/20/2017 PROCEDURE: CT HEAD WITHOUT CONTRAST. HISTORY: fall COMPARISON: 04/07/2017 TECHNIQUE: Axial computed tomography images were obtained through the head/brain without intravenous contrast. Radiation dose: Total exam DLP = 806.86 mGy-cm. This CT exam was performed using one or more of the following dose reduction techniques: Automated exposure control, adjustment of the mA and/or kV according to patient size, and/or use of iterative reconstruction technique. FINDINGS: HEMORRHAGE: No intracranial hemorrhage. BRAIN: There are old lacunar infarctions in the right caudate head, right anterior limb of internal capsule, left anterior limb of internal capsule and basal ganglia. There are mild chronic microangiopathic changes. There is no mass, mass effect or abnormal extra-axial fluid collection. VENTRICLES: There is mild age-related global parenchymal volume loss and proportionate enlargement of the ventricles and cortical sulci. CALVARIUM: The skull base and calvarium are normal. PARANASAL SINUSES: Mild mucosal thickening in the sphenoid sinus, otherwise the paranasal sinuses are predominantly clear P MASTOID AIR CELLS: Unremarkable as visualized. No inflammatory changes. OTHER FINDINGS: None. IMPRESSION: No acute intracranial abnormality. Old lacunar infarctions in bilateral anterior limb of internal capsule and left basal ganglia. Mild chronic microangiopathic changes and mild age-related global parenchymal volume loss. A preliminary report was provided by [facility].
== END 2017-12-21 06:42 | disposition home or self-care (01) ==
LOC: H.ER 19:37
DX: F43.20 Adjustment disorder, unspecified (principal); F10.20 Alcohol dependence, uncomplicated; F03.90 Unspecified dementia, unspecified severity, without behavioral disturbance, psychotic disturbance, mood disturbance, and anxiety; Z86.59 Personal history of other mental and behavioral disorders; F43.10 Post-traumatic stress disorder, unspecified; J44.9 Chronic obstructive pulmonary disease, unspecified; I10 Essential (primary) hypertension; Z85.41 Personal history of malignant neoplasm of cervix uteri; Z85.819 Personal history of malignant neoplasm of unspecified site of lip, oral cavity, and pharynx; Z86.73 Personal history of transient ischemic attack (TIA), and cerebral infarction without residual deficits; M81.0 Age-related osteoporosis without current pathological fracture; Z00.8 Encounter for other general examination
CPT/HCPCS: 70450; 80053; 82948; 83735; 85025; 85610; 85730; 93005; G0480; J3411; J7042

== ENCOUNTER 2018-01-07 13:24 | Inpatient (IN) | payer MEDICAID, MEDICARE, OTHER ==
[2018-01-07 13:24] VITALS: BMI 24.9
[2018-01-07] MEDS ORDERED: methylPREDNISolone 60 MG in Sodium Chloride 0.9% 50 ML IVPB STA ×2 (14:09→16:35)
[2018-01-07] MEDS ORDERED: levoFLOXacin 750 mg in D5W 150 ML BAG IVPB STA (14:15)
[2018-01-07 14:31] LABS: BASO # 0.1 K/uL (0.0-0.2); BASO % 1.4 % (0.0-2.0); EOS # 0.1 K/uL (0.0-0.7); EOS % 2.1 % (0.0-4.0); HEMOGLOBIN 12.6 g/dL (12.0-16.0); LYMPH # 0.8 K/uL (1.0-4.3); LYMPH % 15.3 % (20.0-40.0); MEAN CELL VOLUME 103.5 fl (81.0-99.0); MEAN CORPUSCULAR HGB CONC 32.9 g/dL (33.0-37.0); MEAN PLATELET VOLUME 9.4 fl (7.2-11.7); MONO # 0.6 K/uL (0.0-0.8); MONO % 10.5 % (0.0-10.0); NEUT # 3.8 K/uL (1.8-7.0); NEUT % 70.7 % (50.0-75.0); RBC 3.7 Mil/uL (3.80-5.20); RED CELL DISTRIBUTION WIDTH 16.5 % (11.5-14.5); WHITE BLOOD COUNT 5.4 K/uL (4.8-10.8)
[2018-01-07 14:37] LABS: VENOUS BLOOD GAS BASE EXCESS 1.5 mmol/L (0.0-2.0); VENOUS BLOOD GAS PCO2 54 mmHg (40-60); VENOUS BLOOD GAS PO2 29 mm/Hg (30-55); VENOUS BLOOD PH 7.33 (7.32-7.43)
[2018-01-07] MEDS ORDERED: levoFLOXacin 750 mg in D5W 750 MG/150 ML BAG IVPB ONE (14:38)
[2018-01-07] MEDS ORDERED: Albuterol-Ipratrop 3 mg / 0.5 (3 ml) UD ONE (14:40)
[2018-01-07 14:53] LABS: B-TYPE NATRIURETIC PEPTIDE 344 pg/ml (0-900)
[2018-01-07 14:58] LABS: ALB/GLOB RATIO 1.2 (1.0-2.1); ALT/SGPT 38 U/L (9-52); AST/SGOT 41 U/L (14-36); BLOOD UREA NITROGEN 12 mg/dl (7-17); CALCIUM 9.4 mg/dL (8.4-10.2); GFR NON-AFRICAN AMERICAN > 60
--- NOTE | 2018-01-07 16:09 | RAD ---
Date of service: 01/07/2018 HISTORY: COPD/PNEUMONIA/SOB COMPARISON: 08/18/2017 FINDINGS: LUNGS: No active pulmonary disease. PLEURA: No significant pleural effusion identified, no pneumothorax apparent. CARDIOVASCULAR: No radiographic findings to suggest acute or significant cardiovascular disease. OSSEOUS STRUCTURES: No significant abnormalities. VISUALIZED UPPER ABDOMEN: Normal. OTHER FINDINGS: None. IMPRESSION: No active disease. No significant interval change compared to the prior examination(s).
[2018-01-07] MEDS ORDERED: Albuterol-Ipratrop 3 mg / 0.5 (3 ml) UD INH STA ×3 (16:18→16:34)
--- NOTE | 2018-01-07 16:23 | ED PDOC ---
HPI: General Adult Time Seen by Provider: 01/07/18 14:41 Chief Complaint (Nursing): Fever Chief Complaint (Provider): COUGH/SOB/FEVER History Per: Patient (72 Y/O FEMALE H/O COPD/H/O ALCOHOL ABUSE HERE FOR EVALUATION OF ONGOING COUGH/SOB. PATIENT STATES SHE WAS SEEN 01/05/2018 AT [facility] ADMITTED FOR PNEUMONIA. WAS STARTED ON ANTIBIOTICS AND SOLUMEDROL BUT STATES SHE SIGNED OUT AGAINST MEDICAL ADVICE B/C SHE FELT HER PHYSICIAN WAS NOT PAYING ATTENTION TO HER.) Past Medical History Reviewed: Historical Data, Nursing Documentation, Vital Signs Vital Signs: Last Vital Signs Temp 98.8 F 01/07/18 13:26 Pulse 84 01/07/18 13:26 Resp 16 01/07/18 13:26 BP 126/67 01/07/18 13:26 Pulse Ox 99 01/07/18 13:26 - Medical History PMH: Anxiety, Arthritis, Bipolar Disorder, Colonic Polyps, COPD (o2 dependent), Dementia, Depression, Fractures (right wrist fracture), HTN, Hypercholesterolemia, Malignancy (squamous cell carcinoma of mouth/neck (2009)), Osteoporosis, Pneumonia, Post Traumatic Stress Disorder, Schizophrenia Denies: CHF, Diabetes, Hepatitis, HIV, Hypothyroidism, Chronic Kidney Disease, Rheumatoid Arthritis, Seizures, Sexually Transmitted Disease, TIA - Family History Family History: States: Unknown Family Hx - Immunization History Hx Tetanus Toxoid Vaccination: No Hx Influenza Vaccination: Yes Hx Pneumococcal Vaccination: Yes - Home Medications Home Medications: Ambulatory Orders Medication Instructions Recorded amLODIPine [Norvasc] 5 mg PO DAILY 03/20/17 Albuterol HFA [Ventolin HFA 90 2 puff IH Q8 PRN 08/18/17 mcg/actuation (8 g)] traZODone [Desyrel] 100 mg PO HS 08/18/17 PARoxetine [Paxil] 20 mg PO DAILY #10 tab 12/24/17 Atorvastatin [Lipitor] 20 mg PO HS 01/05/18 Ergocalciferol [Drisdol 50,000 50,000 unit PO MO 01/05/18 Intl Units Cap] Gabapentin [Neurontin] 800 mg PO DAILY 01/05/18 Tiotropium [Spiriva] 18 mcg IH DAILY 01/05/18 Fluticasone/Salmeterol 500/50 1 puff IH Q12 01/07/18 [Advair Diskus 500/50] Losartan [Cozaar] 25 mg PO DAILY 01/07/18 Memantine [Namenda] 10 mg PO Q12 01/07/18 Multivitamin [Multi-Vitamin Daily] 1 tab PO DAILY 01/07/18 Thiamine [Vitamin B1 Tab] 100 mg PO DAILY 01/07/18 - Allergies Allergies/Adverse Reactions: Allergies Allergy/AdvReac Type Severity Reaction Status Date / Time No Known Allergies Allergy Verified 01/07/18 13:26 Review of Systems ROS Statement: Except As Marked, All Systems Reviewed And Found Negative Constitutional: Positive for: Fever Respiratory: Positive for: Cough Physical Exam - Reviewed Nursing Documentation Reviewed: Yes Vital Signs Reviewed: Yes - Physical Exam Appears: Positive for: Well, Non-toxic, No Acute Distress Head Exam: Positive for: ATRAUMATIC, NORMAL INSPECTION, NORMOCEPHALIC Skin: Positive for: Normal Color, Warm, DRY Eye Exam: Positive for: EOMI, Normal appearance, PERRL ENT: Positive for: Normal ENT Inspection Neck: Positive for: Normal, Painless ROM Cardiovascular/Chest: Positive for: Regular Rate, Rhythm Respiratory: Positive for: Wheezing Gastrointestinal/Abdominal: Positive for: Normal Exam, Soft Back: Positive for: Normal Inspection Extremity: Positive for: Normal ROM Neurologic/Psych: Positive for: Alert, Oriented - Laboratory Results Result Diagrams: 01/07/18 14:20 01/07/18 14:20 - ECG O2 Sat by Pulse Oximetry: 99 - Progress ED Course And Treament: DUONEB X 2 SOLUMEDROL 60 MG IV X 1 DOSE CXR REVIEWED FROM [facility]: READ BY RADIOLOGY INFILTRATE. D/W DR BIGGS WILL ORDER CT OF CHEST FOR EVALUATION OF ABNL CXR FINDINGS. Disposition - Clinical Impression Clinical Impression: Pneumonia - Patient ED Disposition Is Patient to be Admitted: Yes - Disposition Disposition Time: 14:41 Condition: FAIR - Pt Status Changed To: Hospital Disposition Of: Inpatient - Admit Certification Admit to Inpatient:: After my assessment, the patient will require hospitaliz ation for at least two midnights. This is because of the severity of symptoms shown, intensity of services needed, and/or the medical risk in this patient being treated as an outpatient.
[2018-01-07] MEDS ORDERED: Magnesium Sulfate 2 gm/50 ml 2 GM/50 ML BAG IVPB ONE (17:08)
[2018-01-08] MEDS: Albuterol-Ipratrop 3 mg / 0.5 (3 ml) UD INH SCH ×5 (07:12→23:20)
[2018-01-08] MEDS: Multivitamin With Minerals Tab PO SCH (08:44)
[2018-01-08] MEDS ORDERED: levoFLOXacin 750 mg in D5W 150 ML BAG IVPB SCH (09:00)
[2018-01-08] MEDS ORDERED: Patient's Own Med (Multivitamin [Multi-Vitamin Daily] 1 TAB) PO SCH (09:00)
[2018-01-08] MEDS: MethylPREDNISolone 40 mg Vial IVP SCH ×3 (09:54→22:08)
[2018-01-08] MEDS ORDERED: methylPREDNISolone 40 MG in Sodium Chloride 0.9% 50 ML IVPB SCH (10:00)
[2018-01-08] MEDS: Budesonide 0.5 mg/2 ml Inhal Susp UD INH SCH ×3 (11:39→23:20)
--- NOTE | 2018-01-08 14:50 | CP.PCM.HP ---
History of Present Illness - History of Present Illness History of Present Illness: cc: sob. 72 Y/O F, Multiple admissions to hospital and multiple chronic medical diagnosis, including COPD O2 dependent, Hx of Mouth/Neck Ca Tx with surgery 10 yrs ago at [facility] with no chemo Tx, Dementia, Schizophrenia, HTN. Pt was brought to [facility] on 01/07/18 for evaluation of moderate SOB associated dry cough, chest congestion and low grade fever with no relief, onset 01/04/18, Hx of starr admitted to [facility] on 01/05/18, Dx. with PNA, Tx with abx, Solu-Medrol, but Pt signed AMA on 01/06/18, after been aware of all risk leaving the hospital. Worsening symptoms: Coughing, [place], Anxiety. Aggravated factor: Movements. Pt denied: Chills, n/v/d, abdominal pain, urinary symptoms, CP, syncope, numbness, sick contact, recent travel out of [place]. CXR: No active disease. Present on Admission - Present on Admission Any Indicators Present on Admission: No Review of Systems - Constitutional Constitutional: Fever - EENT Eyes: Other (negative) Ears: Other (negative) Nose/Mouth/Throat: Other (negative) - Cardiovascular Cardiovascular: Other (negative) - Respiratory Respiratory: Cough, Dyspnea, Dyspnea on Exertion, Wheezing, Chest Congestion - Gastrointestinal Gastrointestinal: Other (negative) - Genitourinary Genitourinary: Urinary Incontinence - Musculoskeletal Musculoskeletal: Arthralgias - Integumentary Integumentary: Other (negative) - Neurological Neurological: Other (negative) - Psychiatric Psychiatric: Anxiety, Depression - Endocrine Endocrine: Other (negative) - Hematologic/Lymphatic Hematologic: Other (negative) Past Patient History - Infectious Disease Hx of Infectious Diseases: None - Tetanus Immunizations Tetanus Immunization: Unknown - Past Medical History & Family History Past Medical History?: Yes Pertinent Family History: Unknown - Past Social History Smoking Status: Former Smoker Alcohol: Other (Hx ETOH abuse) Drugs: Denies Home Situation {Lives}: Alone - CARDIAC Hx Cardiac Disorders: Yes Hx Hypercholesterolemia: Yes Hx Hypertension: Yes - PULMONARY Hx Respiratory Disorders: Yes Hx Bronchitis: Yes Hx Chronic Obstructive Pulmonary Disease (COPD): Yes (o2 dependent) Hx Pneumonia: Yes - NEUROLOGICAL Hx Neurological Disorder: Yes Hx Dementia: Yes Other/Comment: Hx Subarachnoid hemorrhage - HEENT Hx HEENT Problems: Yes Hx Cataracts: Yes - RENAL Hx Chronic Kidney Disease: No - ENDOCRINE/METABOLIC Hx Endocrine Disorders: No Hx Hypothyroidism: No - HEMATOLOGICAL/ONCOLOGICAL Hx Blood Disorders: Yes Hx Cancer: Yes (Hx Mouth and Neck Ca treated surgery) - INTEGUMENTARY Hx Squamous Cell: Yes (No Chemo treatment; surgery 10 yrs ago at [facility]) - MUSCULOSKELETAL/RHEUMATOLOGICAL Hx Musculoskeletal Disorders: Yes Hx Arthritis: Yes Hx Back Pain: Yes Hx Falls: Yes Hx Fractures: Yes (right wrist fracture, rib fx) Hx Osteoporosis: Yes - GASTROINTESTINAL Hx Gastrointestinal Disorders: No - GENITOURINARY/GYNECOLOGICAL Hx Genitourinary Disorders: Yes Hx Incontinence: Yes - PSYCHIATRIC Hx Psychophysiologic Disorder: Yes Hx Anxiety: Yes Hx Depression: Yes Hx Post Traumatic Stress Disorder: Yes Hx Substance Use: No - SURGICAL HISTORY Hx Surgeries: Yes Hx Hysterectomy: Yes (Partial) Other/Comment: mouth and neck CA SX - ANESTHESIA Hx Anesthesia: Yes Hx Anesthesia Reactions: No Hx Malignant Hyperthermia: No Meds Allergies/Adverse Reactions: Allergies Allergy/AdvReac Type Severity Reaction Status Date / Time No Known Allergies Allergy Verified 01/07/18 13:26 Physical Exam - Constitutional Appears: No Acute Distress - Head Exam Head Exam: NORMAL INSPECTION - Eye Exam Eye Exam: PERRL - ENT Exam ENT Exam: Normal Exam - Neck Exam Neck exam: Positive for: Normal Inspection - Respiratory Exam Respiratory Exam: Decreased Breath Sounds (b/l), Rhonchi (scattered) - Cardiovascular Exam Cardiovascular Exam: REGULAR RHYTHM - GI/Abdominal Exam GI & Abdominal Exam: Normal Bowel Sounds, Soft - Extremities Exam Extremities exam: Positive for: normal inspection - Back Exam Back exam: NORMAL INSPECTION - Neurological Exam Neurological exam: Alert, Oriented x3 - Psychiatric Exam Psychiatric exam: Anxious, Depressed - Skin Skin Exam: Warm Results - Vital Signs Recent Vital Signs: Last Vital Signs Temp 98.1 F 01/08/18 13:24 Pulse 90 01/08/18 13:24 Resp 18 01/08/18 13:24 BP 128/70 01/08/18 13:24 Pulse Ox 95 01/08/18 13:24 reviewed [place] - Labs Result Diagrams: 01/07/18 14:20 01/07/18 14:20 Labs: Laboratory Results - last 24 hr 01/07/18 14:20 Sodium 140 Potassium 4.2 Chloride 107 Carbon Dioxide 26 Anion Gap 11 BUN 12 Creatinine 0.8 Est GFR ( Amer) > 60 Est GFR (Non-Af Amer) > 60 Random Glucose 95 Calcium 9.4 Total Bilirubin 0.4 AST 41 H D ALT 38 Alkaline Phosphatase 46 Troponin I < 0.0120 NT-Pro-B Natriuret Pep 344 Total Protein 7.3 Albumin 4.0 Globulin 3.3 Albumin/Globulin Ratio 1.2 Alcohol, Quantitative < 10 reviewed [facility] - Imaging and Cardiology Chest x-ray Status: Report reviewed by me ([email or web address].) Assessment & Plan (1) Pneumonia Status: Acute Priority: High (2) COPD exacerbation Status: Acute Priority: High (3) H/O ETOH abuse Status: Chronic (4) HTN (hypertension) Status: Chronic - Assessment and Plan (Free Text) Plan: F/U Blood C-S, CT Chest, continue Levaquin, Duoneb, Pulmicort, Solu-Medrol, Neurotin and rest of Tx. - Date & Time Date: 01/08/18
[2018-01-08] MEDS: Saliva Substitute(Caphosol) 15 ML SOL MM PRN (15:03)
--- NOTE | 2018-01-08 16:32 | CT ---
Date of service: 01/08/2018 PROCEDURE: CT Chest without contrast HISTORY: COPD exacerbation COMPARISON: 01/07/2018 chest x-ray, CT scan 10/08/2017 TECHNIQUE: Contiguous axial images were obtained through the chest without intravenous contrast enhancement. Sagittal and coronal reconstructions were performed. Radiation dose (DLP): 193 mGy-cm. This CT exam was performed using one or more of the following dose reduction techniques: Automated exposure control, adjustment of the mA and/or kV according to patient size, and/or use of iterative reconstruction technique. FINDINGS: LUNGS: Evaluation of the lungs reveals evidence of previously identified small calcified granuloma in the right apex. There is also mild nonspecific emphysematous changes and interlobular thickening. Minor bronchial thickening is noted with some minimal bronchiectasis noted. In addition there is some mild areas of linear pleural parenchymal change in the medial left apex not as well seen on prior study. This is seen on images 10 through 14 series 3. Small amount of previously noted minor posterior pleural parenchymal change in the left apex is no longer seen. The reported 2 millimeter nodule in the left apex seen on prior study image 17 is not as well appreciated. There is additionally some mild linear interstitial change or reticular nodular change posteriorly along the fissure in the right upper lobe, unchanged. There is also some chronic pleural parenchymal change in scarring in the lingula. Within the inferior aspect of the left lower lobe and inferior lingula lobe there is chronic linear pleural parenchymal change and scarring noted. These more than likely reflect postinflammatory or or post infectious process. There is also some mild medial right lower lobe atelectasis or mild interstitial change, new from prior study. A few tiny calcified granulomas are also seen in the inferior right lower lobe, unchanged. Minimal amount of posterior right pleural fluid is not excluded and is new from prior study. MEDIASTINUM: Unchanged with a few small scattered prevascular and precarinal lymph nodes identified. No hilar adenopathy is seen. Heart is unchanged. Evaluation of the pulmonary arteries is limited although they appear mildly enlarged which may suggest an element of pulmonary artery hypertension. Coronary artery calcification is noted. No pericardial effusion. Visualized esophagus is unremarkable. PLEURA: See above. BONES: Stable chronic compression deformities are noted in the thoracic spine. UPPER ABDOMEN: The stomach is distended with debris but incompletely evaluated on this exam. There appears to be chronic calcified gallstones and contracted gallbladder. Remainder of the upper abdomen is grossly unchanged from prior study dated 08/18/2017 OTHER FINDINGS: None. IMPRESSION: New mild areas of linear subsegmental atelectasis, pleural parenchymal change, and or reticular nodular change as described above probably reflecting mild postinflammatory or postinfectious process. Mild diffuse emphysematous and previously noted interstitial change with minor bronchiectasis. No new nodules identified. Mild posterior right lower lobe pleural thickening or small amount of pleural fluid. No large segmental infiltrate identified. Stable small calcified granulomas. Previously described left apical nodule is no longer seen. Stable compression deformities in the thoracic spine.
[2018-01-09] MEDS: MethylPREDNISolone 40 mg Vial IVP SCH ×4 (04:58→21:01)
[2018-01-09] MEDS: Albuterol-Ipratrop 3 mg / 0.5 (3 ml) UD INH SCH ×6 (05:15→23:39)
[2018-01-09] MEDS: Budesonide 0.5 mg/2 ml Inhal Susp UD INH SCH ×3 (07:39→23:39)
[2018-01-09] MEDS: Multivitamin With Minerals Tab PO SCH (09:15)
[2018-01-09] MEDS: Saliva Substitute(Caphosol) 15 ML SOL MM PRN (12:12)
[2018-01-09] MEDS ORDERED: SALIVA SUBSTITUTE PO PRN ×2 (12:28→13:30)
--- NOTE | 2018-01-09 22:30 | CP.PCM.PN ---
Subjective - Date & Time of Evaluation Date of Evaluation: 01/09/18 Time of Evaluation: 14:20 - Subjective Subjective: F/U PNA Pt c/o of dry cough with difficulty to bring up phlegms, no SOB with O2. Objective - Vital Signs/Intake and Output Vital Signs (last 24 hours): Temp Pulse Resp BP Pulse Ox 98.3 F 83 16 151/72 H 95 01/09/18 19:40 01/09/18 19:40 01/09/18 19:40 01/09/18 19:40 01/09/18 19:40 Intake and Output: 01/09/18 01/10/18 18:59 06:59 Intake Total 510 Balance 510 - Medications Medications: Current Medications Albuterol/Ipratropium (Duoneb 3 Mg/0.5 Mg (3 Ml) Ud) 3 ml INH RQ4 [facility] Last Admin: 01/09/18 19:07 Dose: 3 ml Amlodipine Besylate (Norvasc) 5 mg PO DAILY [facility] Last Admin: 01/09/18 09:13 Dose: 5 mg Atorvastatin Calcium (Lipitor) 20 mg PO HS [facility] Last Admin: 01/09/18 21:00 Dose: 20 mg Budesonide (Pulmicort Respules) 0.5 mg INH RQ8 [facility] Last Admin: 01/09/18 15:42 Dose: 0.5 mg Ergocalciferol (Drisdol 50,000 Intl Units Cap) 1 cap PO QWK [facility] Gabapentin (Neurontin) 800 mg PO DAILY [facility] Last Admin: 01/09/18 09:12 Dose: 800 mg Home Med (Home Med) 1 unit PO Q4H PRN PRN Reason: Dry mouth Last Admin: 01/09/18 13:30 Dose: 1 unit Levofloxacin/Dextrose (Levaquin 750mg) 750 mg in 150 mls @ 100 mls/hr IVPB DAILY [facility] Last Admin: 01/09/18 09:11 Dose: 100 mls/hr Lorazepam (Ativan) 0.5 mg PO Q6 PRN PRN Reason: Anxiety Last Admin: 01/09/18 16:37 Dose: 0.5 mg Losartan Potassium (Cozaar) 25 mg PO DAILY [facility] Last Admin: 01/09/18 09:11 Dose: 25 mg Memantine (Namenda) 10 mg PO Q12 [facility] Last Admin: 01/09/18 21:00 Dose: 10 mg Methylprednisolone (Solu-Medrol) 40 mg IVP Q6 [facility] Last Admin: 01/09/18 21:01 Dose: 40 mg Multivitamins/Minerals (Therapeutic-M Tab) 1 tab PO DAILY [facility] Last Admin: 01/09/18 09:15 Dose: 1 tab Nicotine (Nicoderm Cq) 1 patch TD DAILY [facility] Last Admin: 01/09/18 09:12 Dose: 1 patch Paroxetine HCl (Paxil) 20 mg PO DAILY [facility] Last Admin: 01/09/18 09:14 Dose: 20 mg Thiamine HCl (Vitamin B1 Tab) 100 mg PO DAILY [facility] Last Admin: 01/09/18 09:15 Dose: 100 mg Trazodone HCl (Desyrel) 100 mg PO HS [facility] Last Admin: 01/09/18 21:00 Dose: 100 mg - Labs Labs: 01/07/18 14:20 01/07/18 14:20 - Constitutional Appears: No Acute Distress - Head Exam Head Exam: NORMAL INSPECTION - Eye Exam Eye Exam: PERRL - ENT Exam ENT Exam: Normal Exam - Neck Exam Neck Exam: Normal Inspection - Respiratory Exam Respiratory Exam: Decreased Breath Sounds (at bases), Rhonchi (few scattered) - Cardiovascular Exam Cardiovascular Exam: REGULAR RHYTHM - GI/Abdominal Exam GI & Abdominal Exam: Soft, Normal Bowel Sounds - Extremities Exam Extremities Exam: Normal Inspection - Back Exam Back Exam: NORMAL INSPECTION - Neurological Exam Neurological Exam: Alert, Oriented x3 - Psychiatric Exam Psychiatric exam: Anxious, Depressed - Skin Skin Exam: Warm Assessment and Plan (1) Pneumonia Status: Acute (2) COPD exacerbation Status: Acute (3) H/O ETOH abuse Status: Chronic (4) HTN (hypertension) Status: Chronic - Assessment and Plan (Free Text) Plan: Continue Levaquin, Duoneb, Solu-Medrol and rest of Tx.
[2018-01-10] MEDS: MethylPREDNISolone 40 mg Vial IVP SCH ×4 (04:05→21:50)
[2018-01-10] MEDS: Albuterol-Ipratrop 3 mg / 0.5 (3 ml) UD INH SCH ×6 (04:45→23:17)
[2018-01-10] MEDS: Budesonide 0.5 mg/2 ml Inhal Susp UD INH SCH ×3 (07:35→23:17)
[2018-01-10] MEDS: Multivitamin With Minerals Tab PO SCH (08:57)
[2018-01-10] MEDS ORDERED: Influenza Vaccine 60 MCG/0.5 ML SYR (3 yr & up) IM ONE (09:52)
[2018-01-10] MEDS ORDERED: Pneumococcal 23-Valent Vaccine IM ONE (09:53)
[2018-01-10 12:19] LABS: MEAN CELL VOLUME 103.3 fl (81.0-99.0); MEAN CORPUSCULAR HEMOGLOBIN 34.3 pg (27.0-31.0); MEAN CORPUSCULAR HGB CONC 33.2 g/dL (33.0-37.0); RBC 3.78 Mil/uL (3.80-5.20); RED CELL DISTRIBUTION WIDTH 16.4 % (11.5-14.5)
[2018-01-10 12:31] LABS: BLOOD UREA NITROGEN 21 mg/dl (7-17); GFR NON-AFRICAN AMERICAN > 60
[2018-01-10 12:32] LABS: CALCIUM 9.3 mg/dL (8.4-10.2)
--- NOTE | 2018-01-10 20:02 | CP.PCM.PN ---
Subjective - Date & Time of Evaluation Date of Evaluation: 01/10/18 Time of Evaluation: 13:00 - Subjective Subjective: F/U PNA Pt c/o of dry cough with difficulty to bring up phlegms and SOB W/O O2. Objective - Vital Signs/Intake and Output Vital Signs (last 24 hours): Temp Pulse Resp BP Pulse Ox 98 F 82 22 130/80 96 01/10/18 18:56 01/10/18 18:56 01/10/18 18:56 01/10/18 18:56 01/10/18 18:56 - Medications Medications: Current Medications Albuterol/Ipratropium (Duoneb 3 Mg/0.5 Mg (3 Ml) Ud) 3 ml INH RQ4 [facility] Last Admin: 01/10/18 19:08 Dose: 3 ml Amlodipine Besylate (Norvasc) 5 mg PO DAILY [facility] Last Admin: 01/10/18 08:56 Dose: 5 mg Atorvastatin Calcium (Lipitor) 20 mg PO HS [facility] Last Admin: 01/09/18 21:00 Dose: 20 mg Budesonide (Pulmicort Respules) 0.5 mg INH RQ8 [facility] Last Admin: 01/10/18 15:36 Dose: 0.5 mg Ergocalciferol (Drisdol 50,000 Intl Units Cap) 1 cap PO QWK [facility] Gabapentin (Neurontin) 800 mg PO DAILY [facility] Last Admin: 01/10/18 08:55 Dose: 800 mg Home Med (Home Med) 1 unit PO Q4H PRN PRN Reason: Dry mouth Last Admin: 01/09/18 13:30 Dose: 1 unit Levofloxacin/Dextrose (Levaquin 750mg) 750 mg in 150 mls @ 100 mls/hr IVPB DAILY [facility] Last Admin: 01/10/18 09:03 Dose: 100 mls/hr Lorazepam (Ativan) 0.5 mg PO Q6 PRN PRN Reason: Anxiety Last Admin: 01/10/18 14:29 Dose: 0.5 mg Losartan Potassium (Cozaar) 25 mg PO DAILY [facility] Last Admin: 01/10/18 08:55 Dose: 25 mg Memantine (Namenda) 10 mg PO Q12 [facility] Last Admin: 01/10/18 08:54 Dose: 10 mg Methylprednisolone (Solu-Medrol) 40 mg IVP Q6 [facility] Last Admin: 01/10/18 18:07 Dose: 40 mg Multivitamins/Minerals (Therapeutic-M Tab) 1 tab PO DAILY [facility] Last Admin: 01/10/18 08:57 Dose: 1 tab Nicotine (Nicoderm Cq) 1 patch TD DAILY [facility] Last Admin: 01/10/18 08:56 Dose: 1 patch Paroxetine HCl (Paxil) 20 mg PO DAILY [facility] Last Admin: 01/10/18 08:54 Dose: 20 mg Thiamine HCl (Vitamin B1 Tab) 100 mg PO DAILY [facility] Last Admin: 01/10/18 08:57 Dose: 100 mg Trazodone HCl (Desyrel) 100 mg PO HS [facility] Last Admin: 01/09/18 21:00 Dose: 100 mg - Labs Labs: 01/10/18 12:13 01/10/18 12:13 - Constitutional Appears: No Acute Distress - Head Exam Head Exam: NORMAL INSPECTION - Eye Exam Eye Exam: PERRL - ENT Exam ENT Exam: Normal Exam - Neck Exam Neck Exam: Normal Inspection - Respiratory Exam Respiratory Exam: Decreased Breath Sounds (at bases), Rhonchi (few scattered) - Cardiovascular Exam Cardiovascular Exam: REGULAR RHYTHM - GI/Abdominal Exam GI & Abdominal Exam: Soft, Normal Bowel Sounds - Extremities Exam Extremities Exam: Normal Inspection - Back Exam Back Exam: NORMAL INSPECTION - Neurological Exam Neurological Exam: Alert, Oriented x3 - Psychiatric Exam Psychiatric exam: Anxious, Depressed - Skin Skin Exam: Warm Assessment and Plan (1) Pneumonia Status: Acute (2) COPD exacerbation Status: Acute (3) H/O ETOH abuse Status: Chronic (4) HTN (hypertension) Status: Chronic - Assessment and Plan (Free Text) Plan: Continue Promethazine DM, Duoneb, Pulmicort, Solu-Medrol and rest of Tx.
[2018-01-10] MEDS ORDERED: Ergocalciferol 50,000 Intl Units Cap PO SCH (22:30)
[2018-01-11] MEDS: Albuterol-Ipratrop 3 mg / 0.5 (3 ml) UD INH SCH ×6 (03:01→23:14)
[2018-01-11] MEDS: MethylPREDNISolone 40 mg Vial IVP SCH ×3 (04:20→17:37)
[2018-01-11] MEDS: Budesonide 0.5 mg/2 ml Inhal Susp UD INH SCH ×3 (07:30→23:14)
--- NOTE | 2018-01-11 09:13 | CP.PCM.CON ---
History of Present Illness - History of Present Illness History of Present Illness: pt is 72ys old female with previous psychiatric diagnosis of depression and alcohol dependence, stated started at age 49, due to menopause, having an empty nest and a massive operation for head and neck cancer all together pt since then had multiple admissions to psychiatric unit for alcohol detox, currently linked to [facility] attends three days outpatient and attends AA meetings, pt reported that last november was her last drink and she detoxed herself at home, reported for three weeks she had hallucinations and delusions with possible DT'S at the current time she denies drinking, alcohol level on admission noted to be 10, she reported feeling depressed due to limitations by COPD, also reported flash backs of the delusions she had during DT'S including visoin of people she doesn't know denied command hallucinations denied suicidal ideations, denied any previous suicide attempt pt speech normal and thought process goal directed, alert awake oriented to person and place Past Patient History - Infectious Disease Hx of Infectious Diseases: None - Tetanus Immunizations Tetanus Immunization: Unknown - Past Medical History & Family History Past Medical History?: Yes - Past Social History Smoking Status: Former Smoker Alcohol: Other (Hx ETOH abuse) Drugs: Denies Home Situation {Lives}: Alone - CARDIAC Hx Cardiac Disorders: Yes Hx Hypercholesterolemia: Yes Hx Hypertension: Yes - PULMONARY Hx Respiratory Disorders: Yes Hx Bronchitis: Yes Hx Chronic Obstructive Pulmonary Disease (COPD): Yes (o2 dependent) Hx Pneumonia: Yes - NEUROLOGICAL Hx Neurological Disorder: Yes Hx Dementia: Yes Other/Comment: Hx Subarachnoid hemorrhage - HEENT Hx HEENT Problems: Yes Hx Cataracts: Yes - RENAL Hx Chronic Kidney Disease: No - ENDOCRINE/METABOLIC Hx Endocrine Disorders: No Hx Hypothyroidism: No - HEMATOLOGICAL/ONCOLOGICAL Hx Blood Disorders: Yes Hx Cancer: Yes (Hx Mouth and Neck Ca treated surgery) - INTEGUMENTARY Hx Squamous Cell: Yes (No Chemo treatment; surgery 10 yrs ago at [place]) - MUSCULOSKELETAL/RHEUMATOLOGICAL Hx Musculoskeletal Disorders: Yes Hx Arthritis: Yes Hx Back Pain: Yes Hx Falls: Yes Hx Fractures: Yes (right wrist fracture, rib fx) Hx Osteoporosis: Yes - GASTROINTESTINAL Hx Gastrointestinal Disorders: No - GENITOURINARY/GYNECOLOGICAL Hx Genitourinary Disorders: Yes Hx Incontinence: Yes - PSYCHIATRIC Hx Psychophysiologic Disorder: Yes Hx Anxiety: Yes Hx Depression: Yes Hx Post Traumatic Stress Disorder: Yes Hx Substance Use: No - SURGICAL HISTORY Hx Surgeries: Yes Hx Hysterectomy: Yes (Partial) Other/Comment: mouth and neck CA SX - ANESTHESIA Hx Anesthesia: Yes Hx Anesthesia Reactions: No Hx Malignant Hyperthermia: No Meds Allergies/Adverse Reactions: Allergies Allergy/AdvReac Type Severity Reaction Status Date / Time No Known Allergies Allergy Verified 01/07/18 13:26 - Medications Medications: Current Medications Albuterol/Ipratropium (Duoneb 3 Mg/0.5 Mg (3 Ml) Ud) 3 ml INH RQ4 [facility] Last Admin: 01/11/18 07:30 Dose: 3 ml Amlodipine Besylate (Norvasc) 5 mg PO DAILY [facility] Last Admin: 01/10/18 08:56 Dose: 5 mg Atorvastatin Calcium (Lipitor) 20 mg PO HS [facility] Last Admin: 01/10/18 21:49 Dose: 20 mg Budesonide (Pulmicort Respules) 0.5 mg INH RQ8 [facility] Last Admin: 01/11/18 07:30 Dose: 0.5 mg Ergocalciferol (Drisdol 50,000 Intl Units Cap) 1 cap PO QWK [facility] Gabapentin (Neurontin) 800 mg PO DAILY [facility] Last Admin: 01/10/18 08:55 Dose: 800 mg Home Med (Home Med) 1 unit PO Q4H PRN PRN Reason: Dry mouth Last Admin: 01/09/18 13:30 Dose: 1 unit Levofloxacin/Dextrose (Levaquin 750mg) 750 mg in 150 mls @ 100 mls/hr IVPB DAILY [facility] Last Admin: 01/10/18 09:03 Dose: 100 mls/hr Losartan Potassium (Cozaar) 25 mg PO DAILY [facility] Last Admin: 01/10/18 08:55 Dose: 25 mg Memantine (Namenda) 10 mg PO Q12 [facility] Last Admin: 01/10/18 21:49 Dose: 10 mg Methylprednisolone (Solu-Medrol) 40 mg IVP Q6 [facility] Last Admin: 01/11/18 04:20 Dose: 40 mg Multivitamins/Minerals (Therapeutic-M Tab) 1 tab PO DAILY [facility] Last Admin: 01/10/18 08:57 Dose: 1 tab Nicotine (Nicoderm Cq) 1 patch TD DAILY [facility] Last Admin: 01/10/18 08:56 Dose: 1 patch Paroxetine HCl (Paxil) 20 mg PO DAILY [facility] Last Admin: 01/10/18 08:54 Dose: 20 mg Thiamine HCl (Vitamin B1 Tab) 100 mg PO DAILY [facility] Last Admin: 01/10/18 08:57 Dose: 100 mg Trazodone HCl (Desyrel) 100 mg PO HS [facility] Last Admin: 01/10/18 21:49 Dose: 100 mg Results - Vital Signs Recent Vital Signs: Last Vital Signs Temp 98.1 F 01/11/18 08:26 Pulse 93 H 01/11/18 08:26 Resp 20 01/11/18 08:26 BP 165/83 H 01/11/18 08:26 Pulse Ox 96 01/11/18 08:26 - Labs Result Diagrams: 01/10/18 12:13 01/10/18 12:13 Labs: Laboratory Results - last 24 hr 01/10/18 01/10/18 01/10/18 05:05 11:57 12:13 WBC 9.0 D RBC 3.78 L Hgb 13.0 Hct 39.0 MCV 103.3 H MCH 34.3 H MCHC 33.2 RDW 16.4 H Plt Count 153 Sodium Potassium Chloride Carbon Dioxide Anion Gap BUN Creatinine Est GFR ( Amer) Est GFR (Non-Af Amer) POC Glucose (mg/dL) 178 H 325 H Random Glucose Calcium 01/10/18 01/10/18 01/10/18 12:13 15:54 21:05 WBC RBC Hgb Hct MCV MCH MCHC RDW Plt Count Sodium 140 Potassium 4.0 Chloride 101 Carbon Dioxide 31 H Anion Gap 12 BUN 21 H Creatinine 0.7 Est GFR ( Amer) > 60 Est GFR (Non-Af Amer) > 60 POC Glucose (mg/dL) 154 H 220 H Random Glucose 318 H Calcium 9.3 Assessment & Plan - Assessment and Plan (Free Text) 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
[2018-01-11] MEDS: Multivitamin With Minerals Tab PO SCH (10:29)
[2018-01-11 11:46] LABS: HEMOGLOBIN 12.8 g/dL (12.0-16.0); MEAN CELL VOLUME 102.3 fl (81.0-99.0); MEAN CORPUSCULAR HEMOGLOBIN 33.8 pg (27.0-31.0); RBC 3.78 Mil/uL (3.80-5.20); RED CELL DISTRIBUTION WIDTH 15.9 % (11.5-14.5); WHITE BLOOD COUNT 9.9 K/uL (4.8-10.8)
[2018-01-11] MEDS: Promethazine DM 6.25 mg-15 mg/5 ml Syrup PO PRN (12:00)
[2018-01-11 12:02] LABS: BLOOD UREA NITROGEN 22 mg/dl (7-17); GFR NON-AFRICAN AMERICAN > 60
--- NOTE | 2018-01-11 16:47 | CP.PCM.PN ---
Subjective - Date & Time of Evaluation Date of Evaluation: 01/11/18 Time of Evaluation: 12:20 - Subjective Subjective: F/U PNA Awake, no A/D, occasional non productive cough, no c/o. Objective - Vital Signs/Intake and Output Vital Signs (last 24 hours): Temp Pulse Resp BP Pulse Ox 98.1 F 85 16 133/75 98 01/11/18 16:22 01/11/18 16:22 01/11/18 16:22 01/11/18 16:22 01/11/18 16:22 - Medications Medications: Current Medications Albuterol/Ipratropium (Duoneb 3 Mg/0.5 Mg (3 Ml) Ud) 3 ml INH RQ4 [facility] Last Admin: 01/11/18 15:37 Dose: 3 ml Amlodipine Besylate (Norvasc) 5 mg PO DAILY [facility] Last Admin: 01/11/18 10:31 Dose: 5 mg Aripiprazole (Abilify) 2 mg PO DAILY [facility] Atorvastatin Calcium (Lipitor) 20 mg PO HS [facility] Last Admin: 01/10/18 21:49 Dose: 20 mg Budesonide (Pulmicort Respules) 0.5 mg INH RQ8 [facility] Last Admin: 01/11/18 15:37 Dose: 0.5 mg Ergocalciferol (Drisdol 50,000 Intl Units Cap) 1 cap PO QWK [facility] Gabapentin (Neurontin) 800 mg PO DAILY [facility] Last Admin: 01/11/18 10:30 Dose: 800 mg Home Med (Home Med) 1 unit PO Q4H PRN PRN Reason: Dry mouth Last Admin: 01/09/18 13:30 Dose: 1 unit Levofloxacin (Levaquin) 750 mg PO DAILY [facility] Lorazepam (Ativan) 0.5 mg PO Q6 PRN PRN Reason: Anxiety Last Admin: 01/11/18 11:31 Dose: 0.5 mg Losartan Potassium (Cozaar) 25 mg PO DAILY [facility] Last Admin: 01/11/18 10:30 Dose: 25 mg Memantine (Namenda) 10 mg PO Q12 [facility] Last Admin: 01/11/18 10:31 Dose: 10 mg Methylprednisolone (Solu-Medrol) 40 mg IVP Q6 [facility] Last Admin: 01/11/18 10:29 Dose: 40 mg Multivitamins/Minerals (Therapeutic-M Tab) 1 tab PO DAILY [facility] Last Admin: 01/11/18 10:29 Dose: 1 tab Nicotine (Nicoderm Cq) 1 patch TD DAILY [facility] Last Admin: 01/11/18 10:31 Dose: 1 patch Paroxetine HCl (Paxil) 20 mg PO DAILY [facility] Last Admin: 01/11/18 10:30 Dose: 20 mg Promethazine HCl/Dextromethorphan (Phenergan Dm Syrup) 5 ml PO Q6 PRN PRN Reason: Cough Last Admin: 01/11/18 12:00 Dose: 5 ml Thiamine HCl (Vitamin B1 Tab) 100 mg PO DAILY [facility] Last Admin: 01/11/18 10:31 Dose: 100 mg Trazodone HCl (Desyrel) 100 mg PO HS [facility] Last Admin: 01/10/18 21:49 Dose: 100 mg - Labs Labs: 01/11/18 11:37 01/11/18 11:37 - Constitutional Appears: No Acute Distress - Head Exam Head Exam: NORMAL INSPECTION - Eye Exam Eye Exam: PERRL - ENT Exam ENT Exam: Normal Exam - Neck Exam Neck Exam: Normal Inspection - Respiratory Exam Respiratory Exam: Decreased Breath Sounds (at bases), Rhonchi (few scattered) - Cardiovascular Exam Cardiovascular Exam: REGULAR RHYTHM - GI/Abdominal Exam GI & Abdominal Exam: Soft, Normal Bowel Sounds - Extremities Exam Extremities Exam: Normal Inspection - Back Exam Back Exam: NORMAL INSPECTION - Neurological Exam Neurological Exam: Alert, Oriented x3 - Psychiatric Exam Psychiatric exam: Anxious, Depressed - Skin Skin Exam: Warm Assessment and Plan (1) Pneumonia Status: Acute (2) COPD exacerbation Status: Acute (3) H/O ETOH abuse Status: Chronic (4) HTN (hypertension) Status: Chronic - Assessment and Plan (Free Text) Plan: Continue Solu-Medrol, Duoneb, Pulmicort, Phenergan DM and rest of Tx.
[2018-01-11] MEDS: Insulin Lispro (humaLOG) 100 Units/ml Inj SC SCH (23:24)
[2018-01-12] MEDS: MethylPREDNISolone 40 mg Vial IVP SCH ×3 (00:20→17:40)
[2018-01-12] MEDS: Promethazine DM 6.25 mg-15 mg/5 ml Syrup PO PRN ×3 (01:56→17:41)
[2018-01-12] MEDS: Albuterol-Ipratrop 3 mg / 0.5 (3 ml) UD INH SCH ×6 (04:16→23:21)
[2018-01-12] MEDS: Budesonide 0.5 mg/2 ml Inhal Susp UD INH SCH ×3 (07:41→23:21)
[2018-01-12] MEDS: levoFLOXacin 750 MG TAB PO SCH (08:54)
[2018-01-12] MEDS: Multivitamin With Minerals Tab PO SCH (08:54)
[2018-01-12] MEDS: Insulin Lispro (humaLOG) 100 Units/ml Inj SC SCH ×4 (08:58→21:41)
--- NOTE | 2018-01-12 10:37 | RAD ---
Date of service: 01/12/2018 HISTORY: f/u COMPARISON: 01/07/2018 FINDINGS: LUNGS: No active pulmonary disease. Shallow lung volumes PLEURA: No significant pleural effusion identified, no pneumothorax apparent. CARDIOVASCULAR: Minimal cardiomegaly left ventricular enlargement configuration-similar. No arnulfo pulmonary venous congestion. Atherosclerotic vascular calcifications present. OSSEOUS STRUCTURES: Mild thoracic spondylosis.. Right humeral head deformity-similar compatible with prior trauma Old healed right rib posterior fracture VISUALIZED UPPER ABDOMEN: Double density to the right hemidiaphragm is a similar status for this patient with earlier chest x-rays as well OTHER FINDINGS: None. IMPRESSION: No interval acute cardiopulmonary pathology noted. Other findings as above.
--- NOTE | 2018-01-12 11:43 | CP.PCM.PCO ---
Assessment & Plan - Assessment and Plan (Free Text) Assessment: Spoke with regarding odynophagia, dysphagia which is improved today; pt. denies c/o will order CT neck / chest w iv contrast as per recommendation he will see pt. in am
--- NOTE | 2018-01-12 15:18 | CP.PCM.PN ---
Subjective - Date & Time of Evaluation Date of Evaluation: 01/12/18 Time of Evaluation: 10:30 - Subjective Subjective: F/U PNA Cough improved, no bringing up phlegms, no SOB with O2. Objective - Vital Signs/Intake and Output Vital Signs (last 24 hours): Temp Pulse Resp BP Pulse Ox 98.1 F 96 H 18 153/80 H 95 01/12/18 13:34 01/12/18 13:34 01/12/18 13:34 01/12/18 13:34 01/12/18 13:34 - Medications Medications: Current Medications Albuterol/Ipratropium (Duoneb 3 Mg/0.5 Mg (3 Ml) Ud) 3 ml INH RQ4 [facility] Last Admin: 01/12/18 11:04 Dose: 3 ml Amlodipine Besylate (Norvasc) 5 mg PO DAILY [facility] Last Admin: 01/12/18 08:57 Dose: 5 mg Aripiprazole (Abilify) 2 mg PO DAILY [facility] Last Admin: 01/12/18 08:54 Dose: 2 mg Atorvastatin Calcium (Lipitor) 20 mg PO HS [facility] Last Admin: 01/11/18 21:04 Dose: 20 mg Budesonide (Pulmicort Respules) 0.5 mg INH RQ8 [facility] Last Admin: 01/12/18 07:41 Dose: 0.5 mg Ergocalciferol (Drisdol 50,000 Intl Units Cap) 1 cap PO QWK [facility] Gabapentin (Neurontin) 800 mg PO DAILY [facility] Last Admin: 01/12/18 08:55 Dose: 800 mg Home Med (Home Med) 1 unit PO Q4H PRN PRN Reason: Dry mouth Last Admin: 01/09/18 13:30 Dose: 1 unit Insulin Human Lispro (Humalog) 0 units SC ACHS [facility]; Protocol Last Admin: 01/12/18 12:16 Dose: Not Given Levofloxacin (Levaquin) 750 mg PO DAILY [facility] Last Admin: 01/12/18 08:54 Dose: 750 mg Lorazepam (Ativan) 0.5 mg PO Q6 PRN PRN Reason: Anxiety Last Admin: 01/12/18 08:54 Dose: 0.5 mg Losartan Potassium (Cozaar) 25 mg PO DAILY [facility] Last Admin: 01/12/18 08:55 Dose: 25 mg Memantine (Namenda) 10 mg PO Q12 [facility] Last Admin: 01/12/18 08:57 Dose: 10 mg Methylprednisolone (Solu-Medrol) 40 mg IVP Q8 [facility] Last Admin: 01/12/18 08:54 Dose: 40 mg Multivitamins/Minerals (Therapeutic-M Tab) 1 tab PO DAILY [facility] Last Admin: 01/12/18 08:54 Dose: 1 tab Nicotine (Nicoderm Cq) 1 patch TD DAILY [facility] Last Admin: 01/12/18 08:55 Dose: 1 patch Paroxetine HCl (Paxil) 20 mg PO DAILY [facility] Last Admin: 01/12/18 08:59 Dose: 20 mg Promethazine HCl/Dextromethorphan (Phenergan Dm Syrup) 5 ml PO Q6 PRN PRN Reason: Cough Last Admin: 01/12/18 08:54 Dose: 5 ml Thiamine HCl (Vitamin B1 Tab) 100 mg PO DAILY [facility] Last Admin: 01/12/18 08:58 Dose: 100 mg Trazodone HCl (Desyrel) 100 mg PO HS [facility] Last Admin: 01/11/18 21:04 Dose: 100 mg - Labs Labs: 01/11/18 11:37 01/11/18 11:37 - Constitutional Appears: No Acute Distress - Head Exam Head Exam: NORMAL INSPECTION - Eye Exam Eye Exam: PERRL - ENT Exam ENT Exam: Normal Exam - Neck Exam Neck Exam: Normal Inspection - Respiratory Exam Respiratory Exam: Decreased Breath Sounds (at bases), Rhonchi (few scattered) - Cardiovascular Exam Cardiovascular Exam: REGULAR RHYTHM - GI/Abdominal Exam GI & Abdominal Exam: Soft, Normal Bowel Sounds - Extremities Exam Extremities Exam: Normal Inspection - Back Exam Back Exam: NORMAL INSPECTION - Neurological Exam Neurological Exam: Alert, Oriented x3 - Psychiatric Exam Psychiatric exam: Anxious, Depressed - Skin Skin Exam: Warm Assessment and Plan (1) Pneumonia Status: Acute (2) COPD exacerbation Status: Acute (3) H/O ETOH abuse Status: Chronic (4) HTN (hypertension) Status: Chronic - Assessment and Plan (Free Text) Plan: Continue Duoneb, Levaquin, Solu-Medrol, Pulmicort and rest of Tx.
[2018-01-12] MEDS ORDERED: Iohexol 300 100 ML IJ ONE (15:49)
[2018-01-12] MEDS ORDERED: Sodium Chloride 0.9% 50 ML IV ONE (15:50)
--- NOTE | 2018-01-12 17:16 | CT ---
PROCEDURE: CT scan of the neck and chest without and with intravenous contrast INDICATION: dysphagia, odynophagia, hx mouth/ neck ca / sx TECHNIQUE: CT of the neck and chest without and with intravenous contrast. Coronal and sagittal reformats generated. Radiation dose: Total exam DLP = 1252.17 mGy-cm. This CT exam was performed using one or more of the following dose reduction techniques: Automated exposure control, adjustment of the mA and/or kV according to patient size, and/or use of iterative reconstruction technique Intravenous contrast dose: 90 mL Omnipaque 300 COMPARISON: None. FINDINGS: Please note examination is limited due to patient motion and swallowing which limits evaluation of the glottis and supraglottic region. NASOPHARYNX: No mass or abnormal enhancement. SUPRAHYOID NECK: No mass or abnormal enhancement in the oropharynx, oral cavity, parapharyngeal space and retropharyngeal space. INFRAHYOID NECK: There is no mass or abnormal enhancement in the larynx, hypopharynx, and supraglottic space. Vocal cords intact. LYMPH NODES: Normal. No pathologic lymphadenopathy. OTHER FINDINGS: There are postsurgical changes of left neck dissection. There is moderate mucosal thickening in the ethmoid air cells, left maxillary sinus and sphenoid sinus. CT CHEST:: Mediastinum and heart: There is no mediastinal or hilar lymphadenopathy, mass or pericardial effusion. The aorta is not dilated and there is no evidence for dissection. There is a multinodular left thyroid lobe. Lungs and Pleura: The lungs are clear without airspace disease, mass or nodule. There is subsegmental atelectasis/scarring in the lower lobes. There are no pleural effusions. Limited Abdomen: Little interval change in the dilated common bile duct and presumable contracted gallstones bladder containing stones versus wall calcification. Musculoskeletal structures: There is diffuse bone demineralization. There are old osteoporotic compression fracture deformities in the mid and lower thoracic spine. IMPRESSION: Examination is limited due to patient motion and swallowing which limits evaluation of the glottis and supraglottic really region. Allowing for this, no evidence of bulky mass, abnormal enhancement or pathologic lymphadenopathy. Status post left neck dissection Chronic sinusitis. No acute findings in the chest. No mediastinal adenopathy.
[2018-01-13] MEDS: MethylPREDNISolone 40 mg Vial IVP SCH (00:57)
[2018-01-13] MEDS: Promethazine DM 6.25 mg-15 mg/5 ml Syrup PO PRN (02:04)
--- NOTE | 2018-01-13 03:10 | OP ---
PROCEDURE DATE: 01/12/2018 PREPROCEDURE DIAGNOSIS: Dysphagia. POSTPROCEDURE DIAGNOSIS: Dysphagia. PROCEDURE: Flexible laryngoscopy. SIGNIFICANT FINDINGS: Arytenoid erythema. DESCRIPTION OF PROCEDURE: The patient was placed in a seated position. Nose was decongested using Afrin. Flexible laryngoscope was inserted into the nasal cavity and passed the nasopharynx, oropharynx and hypopharynx. The pharyngeal wall, base of tongue, vallecula, epiglottis, AE fold, false cords, true cords and arytenoids were brought into view. Mild erythema of the arytenoids was noted. The scope was removed. The patient tolerated the procedure well. The patient is having gastroesophageal reflux and laryngopharyngeal reflux disease. GI consult is recommended. Javier Villeda MD
[2018-01-13] MEDS: Albuterol-Ipratrop 3 mg / 0.5 (3 ml) UD INH SCH ×4 (04:59→15:29)
[2018-01-13 05:27] LABS: HEMOGLOBIN 12.9 g/dL (12.0-16.0); MEAN CORPUSCULAR HGB CONC 33.7 g/dL (33.0-37.0); RBC 3.79 Mil/uL (3.80-5.20); WHITE BLOOD COUNT 7.7 K/uL (4.8-10.8)
[2018-01-13 05:45] LABS: BLOOD UREA NITROGEN 25 mg/dl (7-17); CALCIUM 9.2 mg/dL (8.4-10.2); GFR NON-AFRICAN AMERICAN > 60
[2018-01-13] MEDS: Budesonide 0.5 mg/2 ml Inhal Susp UD INH SCH ×2 (08:18→15:29)
[2018-01-13] MEDS: Insulin Lispro (humaLOG) 100 Units/ml Inj SC SCH ×3 (08:28→16:28)
[2018-01-13] MEDS: levoFLOXacin 750 MG TAB PO SCH (08:30)
[2018-01-13] MEDS: Multivitamin With Minerals Tab PO SCH (08:31)
[2018-01-13] MEDS: Pantoprazole 40 mg EC Tab PO SCH ×2 (10:49→16:22)
[2018-01-13] MEDS: Nystatin 100,000 Units/ml Oral Susp 5 ml UD PO SCH ×3 (11:46→16:26)
[2018-01-13 13:02] VITALS: O2SAT 96
--- NOTE | 2018-01-13 13:51 | CP.PCM.PN ---
Objective - Vital Signs/Intake and Output Vital Signs (last 24 hours): Temp Pulse Resp BP Pulse Ox 98.3 F 97 H 20 118/64 96 01/13/18 13:01 01/13/18 13:01 01/13/18 13:01 01/13/18 13:01 01/13/18 13:01 - Medications Medications: Current Medications Albuterol/Ipratropium (Duoneb 3 Mg/0.5 Mg (3 Ml) Ud) 3 ml INH RQ4 [facility] Last Admin: 01/13/18 11:30 Dose: 3 ml Amlodipine Besylate (Norvasc) 5 mg PO DAILY [facility] Last Admin: 01/13/18 08:31 Dose: 5 mg Aripiprazole (Abilify) 2 mg PO DAILY [facility] Last Admin: 01/13/18 12:17 Dose: Not Given Atorvastatin Calcium (Lipitor) 20 mg PO HS [facility] Last Admin: 01/12/18 21:39 Dose: 20 mg Budesonide (Pulmicort Respules) 0.5 mg INH RQ8 [facility] Last Admin: 01/13/18 08:18 Dose: 0.5 mg Ergocalciferol (Drisdol 50,000 Intl Units Cap) 1 cap PO QWK [facility] Gabapentin (Neurontin) 800 mg PO DAILY [facility] Last Admin: 01/13/18 08:30 Dose: 800 mg Home Med (Home Med) 1 unit PO Q4H PRN PRN Reason: Dry mouth Last Admin: 01/09/18 13:30 Dose: 1 unit Insulin Human Lispro (Humalog) [address] [facility]; Protocol Last Admin: 01/13/18 11:52 Dose: 1 units Levofloxacin (Levaquin) 750 mg PO DAILY [facility] Last Admin: 01/13/18 08:30 Dose: 750 mg Lorazepam (Ativan) 0.5 mg PO Q6 PRN PRN Reason: Anxiety Last Admin: 01/13/18 09:06 Dose: 0.5 mg Losartan Potassium (Cozaar) 25 mg PO DAILY [facility] Last Admin: 01/13/18 08:27 Dose: 25 mg Memantine (Namenda) 10 mg PO Q12 [facility] Last Admin: 01/13/18 08:30 Dose: 10 mg Methylprednisolone (Solu-Medrol) 40 mg IVP Q12 [facility] Multivitamins/Minerals (Therapeutic-M Tab) 1 tab PO DAILY [facility] Last Admin: 01/13/18 08:31 Dose: 1 tab Nicotine (Nicoderm Cq) 1 patch TD DAILY [facility] Last Admin: 01/13/18 08:34 Dose: 1 patch Nystatin (Nystatin Oral Susp) 5 ml PO QID [facility] Last Admin: 01/13/18 12:21 Dose: Not Given Pantoprazole Sodium (Protonix Ec Tab) 40 mg PO BID [facility] Last Admin: 01/13/18 10:49 Dose: 40 mg Paroxetine HCl (Paxil) 20 mg PO DAILY [facility] Last Admin: 01/13/18 08:31 Dose: 20 mg Promethazine HCl/Dextromethorphan (Phenergan Dm Syrup) 5 ml PO Q6 PRN PRN Reason: Cough Last Admin: 01/13/18 02:04 Dose: 5 ml Thiamine HCl (Vitamin B1 Tab) 100 mg PO DAILY [facility] Last Admin: 01/13/18 08:32 Dose: 100 mg Trazodone HCl (Desyrel) 100 mg PO HS [facility] Last Admin: 01/12/18 21:39 Dose: 100 mg - Labs Labs: 01/13/18 05:19 01/13/18 05:19 Assessment and Plan (1) Pneumonia Status: Acute (2) COPD exacerbation Status: Acute (3) H/O ETOH abuse Status: Chronic (4) HTN (hypertension) Status: Chronic
[2018-01-13 16:43] VITALS: BP 124/62; PULSE 102; RESP 22; TEMP 99.3
--- NOTE | 2018-01-13 20:23 | CP.PCM.DIS ---
Provider - Provider Date of Admission: 01/07/18 14:41 Attending physician: Primo Solis MD Primary care physician: Wei Wynn MD Diagnosis - Discharge Diagnosis (1) Pneumonia Status: Acute Priority: High (2) COPD exacerbation Status: Acute Priority: High (3) H/O ETOH abuse Status: Chronic (4) HTN (hypertension) Status: Chronic Hospital Course - Lab Results Lab Results: Micro Results 01/07/18 14:35 Blood-Venous Blood Culture - Final NO GROWTH AFTER 5 DAYS 01/07/18 14:35 Blood-Venous Gram Stain - Final TEST NOT PERFORMED 01/07/18 14:35 Blood-Venous Blood Culture - Final NO GROWTH AFTER 5 DAYS 01/07/18 14:35 Blood-Venous Gram Stain - Final TEST NOT PERFORMED Most Recent Lab Values WBC 7.7 K/uL (4.8-10.8) 01/13/18 05:19 RBC 3.79 Mil/uL (3.80-5.20) L 01/13/18 05:19 Hgb 12.9 g/dL (12.0-16.0) 01/13/18 05:19 Hct 38.2 % (34.0-47.0) 01/13/18 05:19 MCV 101.0 fl (81.0-99.0) H 01/13/18 05:19 MCH 34.0 pg (27.0-31.0) H 01/13/18 05:19 MCHC 33.7 g/dL (33.0-37.0) 01/13/18 05:19 RDW 16.0 % (11.5-14.5) H 01/13/18 05:19 Plt Count 117 K/uL (130-400) L D 01/13/18 05:19 MPV 9.4 fl (7.2-11.7) 01/07/18 14:20 Neut % (Auto) 70.7 % (50.0-75.0) 01/07/18 14:20 Lymph % (Auto) 15.3 % (20.0-40.0) L 01/07/18 14:20 [place] % (Auto) 10.5 % (0.0-10.0) H 01/07/18 14:20 Eos % (Auto) 2.1 % (0.0-4.0) 01/07/18 14:20 Baso % (Auto) 1.4 % (0.0-2.0) 01/07/18 14:20 Neut # (Auto) 3.8 K/uL (1.8-7.0) 01/07/18 14:20 Lymph # (Auto) 0.8 K/uL (1.0-4.3) L 01/07/18 14:20 [place] # (Auto) 0.6 K/uL (0.0-0.8) 01/07/18 14:20 Eos # (Auto) 0.1 K/uL (0.0-0.7) 01/07/18 14:20 Baso # (Auto) 0.1 K/uL (0.0-0.2) 01/07/18 14:20 pO2 29 mm/Hg (30-55) L 01/07/18 14:09 VBG pH 7.33 (7.32-7.43) 01/07/18 14:09 VBG pCO2 54 mmHg (40-60) 01/07/18 14:09 VBG HCO3 25.0 mmol/L 01/07/18 14:09 VBG Total CO2 30.2 mmol/L (22-28) H 01/07/18 14:09 VBG O2 Sat (Calc) 58.7 % (40-65) 01/07/18 14:09 VBG Base Excess 1.5 mmol/L (0.0-2.0) 01/07/18 14:09 VBG Potassium 3.7 mmol/L (3.6-5.2) 01/07/18 14:09 Sodium 138.0 mmol/L (132-148) 01/07/18 14:09 Chloride 106.0 mmol/L (98-107) 01/07/18 14:09 Glucose 89 mg/dL (65-105) 01/07/18 14:09 Lactate 0.8 mmol/L (0.7-2.1) 01/07/18 14:09 FiO2 21.0 % 01/07/18 14:09 Sodium 138 mmol/l (132-148) 01/13/18 05:19 Potassium 4.8 MMOL/L (3.6-5.0) 01/13/18 05:19 Chloride 98 mmol/L (98-107) 01/13/18 05:19 Carbon Dioxide 35 mmol/L (22-30) H 01/13/18 05:19 Anion Gap 10 (10-20) 01/13/18 05:19 BUN 25 mg/dl (7-17) H 01/13/18 05:19 Creatinine 0.7 mg/dl (0.7-1.2) 01/13/18 05:19 Est GFR ( Amer) > 60 01/13/18 05:19 Est GFR (Non-Af Amer) > 60 01/13/18 05:19 POC Glucose (mg/dL) 160 mg/dL (65-110) H 01/13/18 16:27 Random Glucose 169 mg/dL (65-105) H 01/13/18 05:19 Calcium 9.2 mg/dL (8.4-10.2) 01/13/18 05:19 Total Bilirubin 0.4 mg/dl (0.2-1.3) 01/07/18 14:20 AST 41 U/L (14-36) H D 01/07/18 14:20 ALT 38 U/L (9-52) 01/07/18 14:20 Alkaline Phosphatase 46 U/L (38-126) 01/07/18 14:20 Troponin I < 0.0120 ng/mL (0.00-0.120) 01/07/18 14:20 NT-Pro-B Natriuret Pep 344 pg/ml (0-900) 01/07/18 14:20 Total Protein 7.3 G/DL (6.3-8.2) 01/07/18 14:20 Albumin 4.0 g/dL (3.5-5.0) 01/07/18 14:20 Globulin 3.3 gm/dL (2.2-3.9) 01/07/18 14:20 Albumin/Globulin Ratio 1.2 (1.0-2.1) 01/07/18 14:20 25-OH Vitamin D Total 32.5 NG/ML (30.0-100.0) 01/08/18 09:30 Venous Blood Potassium 3.7 mmol/L (3.6-5.2) 01/07/18 14:09 Alcohol, Quantitative < 10 mg/dl (0-10) 10/05/18 14:20 Discharge Exam - Head Exam Head Exam: NORMAL INSPECTION Discharge Plan - Discharge Medications Prescriptions: Prednisone [Deltasone] 30 mg PO Q12 #10 tablet - Follow Up Plan Condition: FAIR Disposition: DISCHARGE TO [facility] Instructions: Pneumonia, Adult (DC) Additional Instructions: pt. cleared for d/c to Geropsych today by , f/u with started ppi, cont. medrol 40 mg iv bid Referrals: Javier Villeda MD [Staff Provider] - Wei Wynn [Primary Care Provider] - Florentino Young MD, PhD [Staff Provider] - Primo Solis MD [Staff Provider] -
[2018-01-13] MEDS ORDERED: MethylPREDNISolone 40 mg Vial IVP SCH (21:00)
--- NOTE | 2018-01-14 02:57 | CON ---
DATE: 01/13/2018 REFERRING PHYSICIAN: Primo Solis MD REASON FOR CONSULTATION: Reflux. HISTORY OF PRESENT ILLNESS: This is a 72-year-old female with a history of psych disorder with depression and alcohol dependence. She has a history of which was treated many years ago. She has cough . The patient denies any GI complaints other than infrequent bowel movements. Has no heartburn or reflux at this point. Currently lying in bed comfortably, in no apparent distress. PAST MEDICAL HISTORY: As above. PAST SURGICAL HISTORY: As above. MEDICATIONS: Have been reviewed. REVIEW OF SYSTEMS: All other systems have been reviewed and negative apart from the HPI. PHYSICAL EXAMINATION: VITAL SIGNS: Here in the hospital grossly unremarkable. GENERAL: A pleasant elderly appearing female, lying in bed comfortably, in no apparent distress. HEENT: Head is normocephalic, atraumatic. Eyes, pupils are equally reactive to light bilaterally. No conjunctival pallor or icterus. NECK: Supple. Normal range of motion. No lymphadenopathy appreciated. LUNGS: Coarse breath sounds bilaterally. HEART: S1 and S2. Regular rate and rhythm. No murmurs appreciated. ABDOMEN: Soft and nontender. Bowel sounds present. No rebound. No guarding. RECTAL: Deferred. EXTREMITIES: Pulses present bilaterally. SKIN: Warm, dry and intact. NEUROLOGIC: A and O x3. LABORATORY DATA: All labs and radiology have been reviewed. WBC 7.7, hemoglobin 12.9, hematocrit 38.2, platelet count is 117. ASSESSMENT AND PLAN: This is a 72-year-old female with gastroesophageal reflux after had Nexium in the past. Suggest proton pump inhibitor twice a day. No endoscopy at this point. The patient has no complaints. We will follow the patient with you. Thank you for the consult. Florentino Young MD/ PhD cc: Primo Solis MD
== END 2018-01-13 16:30 | DRG 190 ==
LOC: H.ER 13:24 → H.ERHOLD 14:41 → H.TEL 18:45
PROVIDERS: ADMIT Internal Medicine Pulmonary Disease; ATTEND Internal Medicine Pulmonary Disease
PROC: 0CJS8ZZ Inspection of Larynx, Via Natural or Artificial Opening Endoscopic (ICD-10-PCS; principal; 2018-01-12)
DX: J44.0 Chronic obstructive pulmonary disease with (acute) lower respiratory infection (principal); J18.9 Pneumonia, unspecified organism; J44.1 Chronic obstructive pulmonary disease with (acute) exacerbation; K21.9 Gastro-esophageal reflux disease without esophagitis; Z85.819 Personal history of malignant neoplasm of unspecified site of lip, oral cavity, and pharynx; I10 Essential (primary) hypertension; E78.00 Pure hypercholesterolemia, unspecified; R13.10 Dysphagia, unspecified; Z99.81 Dependence on supplemental oxygen; F03.90 Unspecified dementia, unspecified severity, without behavioral disturbance, psychotic disturbance, mood disturbance, and anxiety; M81.0 Age-related osteoporosis without current pathological fracture; Z87.891 Personal history of nicotine dependence; F10.10 Alcohol abuse, uncomplicated; F43.10 Post-traumatic stress disorder, unspecified; F20.9 Schizophrenia, unspecified

== ENCOUNTER 2018-01-13 17:19 | Inpatient (IN) | payer MEDICARE, OTHER ==
[2018-01-13 17:31] VITALS: BMI 24.7
[2018-01-13] MEDS ORDERED: Bismuth Subsalicylate 262 mg/15 ml Sus (240 ml) PO PRN (17:54)
[2018-01-13] MEDS ORDERED: Alum-Mag Hydrox-Simethicone Susp (30 mL) PO PRN (17:54)
[2018-01-13] MEDS ORDERED: Magnesium Hydroxide Susp 30 ml UD PO PRN (17:54)
[2018-01-13] MEDS ORDERED: Home Med 1 UNIT PO PRN (18:06)
[2018-01-13] MEDS ORDERED: Albuterol HFA 90 mcg/actuation (8 g) IH PRN (18:06)
[2018-01-13] MEDS: Albuterol-Ipratrop 3 mg / 0.5 (3 ml) UD INH SCH ×2 (20:25→23:10)
--- NOTE | 2018-01-13 20:45 | PCM.BM ---
<Fallon Alexander - Last Filed: 01/13/18 20:43> Treatment Plan Problems - Problems identified on initial assessmt Hopelessness/Helplessness Date Initiated: 01/13/18 Time Initiated: 20:44 Assessment reference: NA Status: Active Anxiety Date Initiated: 01/13/18 Time Initiated: 20:44 Assessment reference: NA Status: Active Treatment assets and liabiliti Patient Assests: adapts well, cooperative, educated, motivated, ADL independent, negotiates basic needs Patient Liabilities: live alone, other (ETOH DEPENDENCE) - Milieu Protocol Maintain good personal hygiene: daily Encourage regular showers, daily Remind patient to perform daily oral care, daily Assist patient to perform ADL's Conduct patient checks and document Observation sheet: Q15 minutes Maintain personal safety: every shift Educate patient to report safety concerns to staff, every shift Monitor environment for contraband/sharps Medication safety: Monitor for expected outcome, potential side effects: every shift, Assess barriers to learning: every shift, Assess readiness for medication education: every shift <ArchanaRachel M - Last Filed: 01/14/18 12:59> Family Contact Family involvement: Famliy/SO not involved Family contact: Patient declines to allow family contact at present - Outside Agency [facility] Care involvment: Information-sharing Agency contact number: Dr. Roni MD @ [facility] Care involent: Information-sharing Agency contact number: - Goals for Treatment Patient goals for treatment: Pt to be encouraged to attend activity and clinical groups 3-5x per week to identify at least 2 contributing factors to increased anxiety, restlessness, and depression. Pt to be encouraged to participate in group milieu to develop effective coping skills and present reality and explore ways to cope with reality. Discharge/Continuing Care - Education Needs Education Needs: Patient Medication, Patient Diagnosis/Disease Process, Patient Coping Skills, Patient Placement options, Patient Community resources, Patient Activities of Daily Living, Patient Nutrition, Patient Uses of Medical Equipment, Patient Health Practices/Safety, Patient Personal Hygiene/Grooming, Patient Aftercare Safety Plan - Discharge Discharge Criteria: Tolerates medication w/o severe side effects, Normal sleep pattern, Ability to care for self, Reduction of target symptoms, Other (Free of Anxiety symptoms) Discharge to:: Home - Additional Comments 10/12/18 12:51 Pt seen and discussed in team meeting. Reason for admission reviewed and discussed. Pt was a transfer from [facility] due to increased anxiety and depressive symptoms. Pt reported that her anxiety "is so much that it's causing me to have problems to breathe." Pt continued to state "sometimes it's off the scale." Pt reported having COPD and using oxygen at home. Pt reported that due to her anxiety, COPD has worsened. Pt reported she resides alone and social support is limited. Pt reported feelings of hopelessness. Pt reported treatment compliance; however, feels as if her current medication regimen isn't improving her anxiety and not helping her at home. Pt's social and medical issues reviewed. Pt's medications reviewed. Please refer to MD progress note for additional information. Psycho-education provided regarding medication. Tx plan reviewed - RN monitoring, daily MD evaluation, medication regimen, pt to attend group milieu, Q15, SW evaluation and collateral information to be obtained. Pt reported that she does not wish for anyone to be contacted for information. Pt reported she is linked to [facility] for services. SW to continue to follow case. - Treatment Team Participation Discussed with Family/SO: No Was Patient/Family/SO present at Treatment Team Meeting: Yes
[2018-01-13] MEDS: Fluticasone-Salmeterol 500-50mcg Diskus IH SCH (21:52)
[2018-01-13] MEDS: Nystatin 100,000 Units/ml Oral Susp 5 ml UD PO SCH (21:54)
[2018-01-13] MEDS: Pantoprazole 40 mg EC Tab PO SCH (21:59)
[2018-01-13] MEDS ORDERED: Insulin Lispro (humaLOG) 100 Units/ml Inj SC SCH (23:00)
[2018-01-13] MEDS: Budesonide 0.5 mg/2 ml Inhal Susp UD INH SCH (23:11)
[2018-01-14] MEDS: Albuterol-Ipratrop 3 mg / 0.5 (3 ml) UD INH SCH ×6 (05:17→23:26)
[2018-01-14 06:25] LABS: HEMOGLOBIN 12.7 g/dL (12.0-16.0); MEAN CELL VOLUME 101.3 fl (81.0-99.0); MEAN CORPUSCULAR HEMOGLOBIN 34.3 pg (27.0-31.0); MEAN CORPUSCULAR HGB CONC 33.9 g/dL (33.0-37.0); RBC 3.7 Mil/uL (3.80-5.20); RED CELL DISTRIBUTION WIDTH 16.1 % (11.5-14.5); WHITE BLOOD COUNT 5.8 K/uL (4.8-10.8)
[2018-01-14 06:52] LABS: LDL CHOLESTEROL 48 mg/dL (0-129)
[2018-01-14 06:56] LABS: T4 4.92 ug/dl (5.5-11.0)
[2018-01-14 06:57] LABS: ALB/GLOB RATIO 1.1 (1.0-2.1); ALBUMIN 2.8 g/dL (3.5-5.0); ALT/SGPT 48 U/L (9-52); AST/SGOT 24 U/L (14-36); BLOOD UREA NITROGEN 30 mg/dl (7-17); CALCIUM 8.7 mg/dL (8.4-10.2); GFR NON-AFRICAN AMERICAN > 60; HDL CHOLESTEROL 55 MG/DL (30-70)
[2018-01-14 07:14] LABS: FERRITIN 21.6 ng/Ml (11.1-264.0)
[2018-01-14] MEDS: Budesonide 0.5 mg/2 ml Inhal Susp UD INH SCH ×3 (07:33→23:26)
[2018-01-14 07:48] LABS: ABG ALLEN TEST YES; ARTERIAL BLOOD GAS HCO3 34.7 mmol/L (21-28); ARTERIAL BLOOD GAS HEMOGLOBIN 13.5 g/dL (11.7-17.4); ARTERIAL BLOOD GAS O2 CAPACITY 18.4 mL/dL (16-24); ARTERIAL BLOOD GAS O2 CONTENT 17.6 ML/dL (15-23); ARTERIAL BLOOD GAS O2 SAT 95.5 % (95-98); ARTERIAL BLOOD GAS PCO2 53 mm/Hg (35-45); ARTERIAL BLOOD GAS PH 7.47 (7.35-7.45); ARTERIAL BLOOD GAS PO2 63 mm/Hg (80-100); ARTERIAL BLOOD GAS TCO2 40.2 mmol/L (22-28)
[2018-01-14] MEDS: Multivitamin With Minerals Tab PO SCH (08:40)
[2018-01-14] MEDS: Fluticasone-Salmeterol 500-50mcg Diskus IH SCH ×2 (08:40→21:20)
[2018-01-14] MEDS: Pantoprazole 40 mg EC Tab PO SCH ×2 (08:41→16:41)
[2018-01-14] MEDS: Insulin Lispro (humaLOG) 100 Units/ml Inj SC SCH ×4 (08:42→21:25)
[2018-01-14] MEDS: levoFLOXacin 750 MG TAB PO SCH (08:42)
[2018-01-14] MEDS: Promethazine DM 6.25 mg-15 mg/5 ml Syrup PO PRN ×3 (08:45→22:58)
[2018-01-14] MEDS: Tiotropium 18 mcg Cap For Inhalation IH SCH (08:46)
[2018-01-14] MEDS: Nystatin 100,000 Units/ml Oral Susp 5 ml UD PO SCH ×4 (08:56→21:23)
[2018-01-14] MEDS ORDERED: Patient's Own Med (Multivitamin [Multi-Vitamin Daily] 1 TAB) PO SCH (09:00)
--- NOTE | 2018-01-14 12:57 | PCM.PSYCH ---
Initial Psychiatric Evaluation - Initial Psychiatric Evaluation Type of Admission: Voluntary Legal Status: Capacity Chief Complaint (in patient's own words): Depression/Anxiety Patient's Reaction to Hospitalization: HPI: 72 yo female w/ h/o alcohol use disorder, depression, anxiety, presents w/ worsening depression and severe anxiety, poor sleep, appetite disturbances and intermittent feelings of hopelessness. NO AH/VH/SI/HI. 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; quit smoking; lives alone Current Medications: Active Medications Generic Name Dose Route Start Last Admin Trade Name Freq PRN Reason Stop Dose Admin Acetaminophen 650 mg 01/13/18 17:54 Tylenol 325mg Tab PO Q4 PRN Pain, moderate (4-7) Al Hydrox/Mg Hydrox/Simethicone 30 ml 01/13/18 17:54 Maalox Plus 30 Ml PO Q4 PRN Dyspepsia Albuterol 2 puff 01/13/18 18:06 Ventolin Hfa 90 Mcg/Actuation (8 G) IH Q8 PRN Shortness of Breath Albuterol/Ipratropium 3 ml 01/13/18 20:00 01/14/18 07:33 Duoneb 3 Mg/0.5 Mg (3 Ml) Ud INH 3 ml RQ4 [facility] Administration Amlodipine Besylate 5 mg 01/14/18 09:00 01/14/18 08:40 Norvasc PO 5 mg DAILY [facility] Administration Atorvastatin Calcium 20 mg 01/13/18 22:00 01/13/18 21:58 Lipitor PO 20 mg HS [facility] Administration Bismuth Subsalicylate 524 mg 01/13/18 17:54 Pepto-Bismol PO Q4 PRN Diarrhea Budesonide 0.5 mg 01/14/18 00:00 01/14/18 07:33 Pulmicort Respules INH 0.5 mg RQ8 [facility] Administration Ergocalciferol 1 cap 01/17/18 18:06 Drisdol 50,000 Intl Units Cap PO MO [facility] Gabapentin 300 mg 01/15/18 09:00 Neurontin PO TID [facility] Home Med 1 unit 01/13/18 18:06 Home Med PO Q4H PRN Dry mouth Insulin Human Lispro 0 units 01/14/18 07:30 01/14/18 08:42 Humalog SC Not Given ACHS [facility] Protocol Levofloxacin 750 mg 01/14/18 09:00 01/14/18 08:42 Levaquin PO 750 mg DAILY [facility] Administration Protocol Lorazepam 0.5 mg 01/13/18 17:54 Ativan PO 01/27/18 17:55 HS PRN Insomnia Lorazepam 0.5 mg 01/13/18 17:54 01/14/18 09:00 Ativan PO 01/27/18 17:55 0.5 mg Q6 PRN Administration Anixety/Agitation Losartan Potassium 25 mg 01/14/18 09:00 01/14/18 08:43 Cozaar PO 25 mg DAILY [facility] Administration Magnesium Hydroxide 30 ml 01/13/18 17:54 Milk Of Magnesia PO HS PRN Constipation Memantine 10 mg 01/13/18 21:00 01/14/18 08:40 Namenda PO 10 mg Q12 [facility] Administration Multivitamins/Minerals 1 tab 01/14/18 09:00 01/14/18 08:40 Therapeutic-M Tab PO 1 tab DAILY [facility] Administration Nicotine 1 patch 01/14/18 09:00 01/14/18 08:44 Nicoderm Cq TD 1 patch DAILY [facility] Administration Nystatin 5 ml 01/13/18 22:00 01/14/18 08:56 Nystatin Oral Susp PO 5 ml QID [facility] Administration Pantoprazole Sodium 40 mg 01/13/18 18:15 01/14/18 08:41 Protonix Ec Tab PO 40 mg BID [facility] Administration Paroxetine HCl 30 mg 01/15/18 09:00 Paxil PO DAILY [facility] Prednisone 35 mg 01/14/18 09:00 01/14/18 08:39 Prednisone Tab PO 35 mg DAILY [facility] Administration Promethazine HCl/Dextromethorphan 5 ml 01/13/18 18:06 01/14/18 08:54 Phenergan Dm Syrup PO 5 ml Q6 PRN Administration Cough Fluticasone/Salmeterol 1 puff 01/13/18 21:00 01/14/18 08:40 Advair Diskus 500/50 IH 1 puff Q12 [facility] Administration Thiamine HCl 100 mg 01/14/18 09:00 01/14/18 08:40 Vitamin B1 Tab PO 100 mg DAILY [facility] Administration Tiotropium [place] 18 mcg 01/14/18 09:00 01/14/18 08:46 Spiriva IH 18 mcg DAILY [facility] Administration Trazodone HCl 150 mg 01/14/18 22:00 Desyrel PO [facility] Past Psychiatric History - Past Psychiatric History Pertinent Medical Hx (Current Medical&Sleep Prob, Allergies): Allergies Allergy/AdvReac Type Severity Reaction Status Date / Time No Known Allergies Allergy Verified 01/07/18 13:26 amLODIPine [Norvasc] 5 mg PO DAILY 03/20/17 Albuterol HFA [Ventolin HFA 90 mcg/actuation (8 g)] 2 puff IH Q8 PRN 08/18/17 traZODone [Desyrel] 100 mg PO HS 08/18/17 PARoxetine [Paxil] 20 mg PO DAILY #10 tab 12/24/17 Atorvastatin [Lipitor] 20 mg PO HS 01/05/18 Ergocalciferol [Drisdol 50,000 Intl Units Cap] 50,000 unit PO MO 01/05/18 Gabapentin [Neurontin] 800 mg PO DAILY 01/05/18 Tiotropium [Spiriva] 18 mcg IH DAILY 01/05/18 Fluticasone/Salmeterol 500/50 [Advair Diskus 500/50] 1 puff IH Q12 01/07/18 Losartan [Cozaar] 25 mg PO DAILY 01/07/18 Memantine [Namenda] 10 mg PO Q12 01/07/18 Multivitamin [Multi-Vitamin Daily] 1 tab PO DAILY 01/07/18 Thiamine [Vitamin B1 Tab] 100 mg PO DAILY 01/07/18 ARIPiprazole [Abilify] 2 mg PO DAILY tab 01/13/18 Albuterol/Ipratropium [Duoneb 3 mg/0.5 mg (3 ml) UD] 3 ml INH RQ4 neb 01/13/18 Budesonide [Pulmicort Respules] 0.5 mg INH RQ8 neb 01/13/18 Home Med 1 unit PO Q4H PRN ea 01/13/18 LORazepam [Ativan] 0.5 mg PO Q6 PRN tab 01/13/18 Nicotine 14 mg/24 hr [Nicoderm CQ] 1 patch TD DAILY patch 01/13/18 Nystatin [Nystatin Oral Susp] 5 ml PO QID udc 01/13/18 Pantoprazole [Protonix EC Tab] 40 mg PO BID ect 01/13/18 Prednisone [Deltasone] 30 mg PO Q12 #10 tablet 01/13/18 Promethazine DM [Phenergan DM Syrup] 5 ml PO Q6 PRN cup 01/13/18 levoFLOXacin [Levaquin] 750 mg PO DAILY tab 01/13/18 Review of Systems - Psychiatric Psychiatric: Abnormal Sleep Pattern, Anhedonia, Anxiety, Behavioral Changes, Change in Appetite, Depression, Difficulty Concentrating, Hopelessness, Memory Loss, Panic Attacks Mental Status Examination - Personal Presentation Personal Presentation: Looks stated age - Affect Affect: Constricted - Motor Activity Motor Activity: Calm - Reliability in Providing Information Reliability in Providing Information: Fair - Speech Speech: Coherent - Mood Mood: Depressed, Anxious - Formal Thought Process Formal Thought Process: No Impairment - Hallucinations/Delusions Additional comments: NO AH/VH/paranoia/delusions - Obsessions/Compulsions Obsessions: No Compulsions: No - Cognitive Functions Orientation: Person, Place, Situation, Time Sensorium: Alert Estimate of Intelligence: Above Average Judgement: Intact, as evidence by: Insight regarding need for hospitalization Memory: Recent intact, as evidence by: Ability to recall events of the day, Remote intact, as evidenced by: Abilit to recall sig. life events, Remote intact, as evidenced by: Ability to recall historical events - Risk Risk: Diminished functioning - Strength & Assets Inventory Strength & Assets Inventory: Cooperative DSM 5 DX - DSM 5 DSM 5 Diagnosis: Depressive Disorder; Generalized Anxiety Disorder; Alcohol Use Disorder, in remission - Recommended/Plan of Treatment Treatment Recommendations and Plan of Treatment: Depressive Disorder; Generalized Anxiety Disorder; Alcohol Use Disorder, in remission -Admit to psychiatry unit -Individual and group therapy -Medicine consult -Gradually titrate Paxil and Trazodone -Change timing of Neurotin and gradually increase dose -Disposition planning -Psychoeducation Discharge Plan and Discharge Criteria: Discharge when patient is psychiatrically stable - Smoking Cessation Smoking Cessation Initiated: Yes
--- NOTE | 2018-01-14 17:35 | CP.PCM.CON ---
History of Present Illness - History of Present Illness History of Present Illness: Internal Medicine consult. 72 y/o F, with previous admission to [facility] on 01/07/18 due to PNA, COPD Exacerbation, on 01/13/18, Pt medical condition improved and was admitted to Psychiatric unit to be Tx for Depressive Disorder, Generalized Anxiety Disorder, Alcohol Use Disorder in remission. Review of Systems - Constitutional Constitutional: Other (decreased appetite) - EENT Eyes: Other (negative) Ears: Other (negative) Nose/Mouth/Throat: Other (negative) - Cardiovascular Cardiovascular: Other (negative) - Respiratory Respiratory: Cough - Gastrointestinal Gastrointestinal: Other (negative) - Genitourinary Genitourinary: Urinary Incontinence - Musculoskeletal Musculoskeletal: Arthralgias - Neurological Neurological: Other (neative) - Psychiatric Psychiatric: Anxiety, Depression - Endocrine Endocrine: Other (negative) - Hematologic/Lymphatic Hematologic: Other (negative) Past Patient History - Infectious Disease Hx of Infectious Diseases: None - Tetanus Immunizations Tetanus Immunization: Unknown - Past Medical History & Family History Past Medical History?: Yes Pertinent Family History: Unknown - Past Social History Smoking Status: Former Smoker Alcohol: Other (Hx ETOH abuse) Drugs: Denies Home Situation {Lives}: Alone - CARDIAC Hx Cardiac Disorders: Yes Hx Hypercholesterolemia: Yes Hx Hypertension: Yes - PULMONARY Hx Respiratory Disorders: Yes Hx Bronchitis: Yes Hx Chronic Obstructive Pulmonary Disease (COPD): Yes (o2 dependent) Hx Pneumonia: Yes - NEUROLOGICAL Hx Neurological Disorder: Yes Hx Dementia: Yes Other/Comment: Hx Subarachnoid hemorrhage - HEENT Hx HEENT Problems: Yes Hx Cataracts: Yes - RENAL Hx Chronic Kidney Disease: No - ENDOCRINE/METABOLIC Hx Endocrine Disorders: No Hx Hypothyroidism: No - HEMATOLOGICAL/ONCOLOGICAL Hx Blood Disorders: Yes Hx Cancer: Yes (Hx Mouth and Neck Ca treated surgery) - INTEGUMENTARY Hx Squamous Cell: Yes (No Chemo treatment; surgery 10 yrs ago at [place]) - MUSCULOSKELETAL/RHEUMATOLOGICAL Hx Falls: No - GASTROINTESTINAL Hx Gastrointestinal Disorders: No - GENITOURINARY/GYNECOLOGICAL Hx Genitourinary Disorders: Yes Hx Incontinence: Yes - PSYCHIATRIC Hx Substance Use: No - SURGICAL HISTORY Hx Surgeries: Yes Hx Hysterectomy: Yes (Partial) Other/Comment: mouth and neck CA SX - ANESTHESIA Hx Anesthesia: Yes Hx Anesthesia Reactions: No Hx Malignant Hyperthermia: No Has any member of the family had a problem w/ anesthesia?: No Meds Allergies/Adverse Reactions: Allergies Allergy/AdvReac Type Severity Reaction Status Date / Time No Known Allergies Allergy Verified 01/07/18 13:26 - Medications Medications: Current Medications Acetaminophen (Tylenol 325mg Tab) 650 mg PO Q4 PRN PRN Reason: Pain, moderate (4-7) Al Hydrox/Mg Hydrox/Simethicone (Maalox Plus 30 Ml) 30 ml PO Q4 PRN PRN Reason: Dyspepsia Albuterol (Ventolin Hfa 90 Mcg/Actuation (8 G)) 2 puff IH Q8 PRN PRN Reason: Shortness of Breath Albuterol/Ipratropium (Duoneb 3 Mg/0.5 Mg (3 Ml) Ud) 3 ml INH RQ4 [facility] Last Admin: 01/14/18 12:00 Dose: Not Given Amlodipine Besylate (Norvasc) 5 mg PO DAILY [facility] Last Admin: 01/14/18 08:40 Dose: 5 mg Atorvastatin Calcium (Lipitor) 20 mg PO HS [facility] Last Admin: 01/13/18 21:58 Dose: 20 mg Bismuth Subsalicylate (Pepto-Bismol) 524 mg PO Q4 PRN PRN Reason: Diarrhea Budesonide (Pulmicort Respules) 0.5 mg INH RQ8 [facility] Last Admin: 01/14/18 07:33 Dose: 0.5 mg Ergocalciferol (Drisdol 50,000 Intl Units Cap) 1 cap PO MO [facility] Gabapentin (Neurontin) 300 mg PO TID [facility] Home Med (Home Med) 1 unit PO Q4H PRN PRN Reason: Dry mouth Insulin Human Lispro (Humalog) 0 units SC [facility]; Protocol Last Admin: 01/14/18 16:39 Dose: 2 unit Levofloxacin (Levaquin) 750 mg PO DAILY [facility]; Protocol Last Admin: 01/14/18 08:42 Dose: 750 mg Lorazepam (Ativan) 0.5 mg PO HS PRN PRN Reason: Insomnia Stop: 01/27/18 17:55 Lorazepam (Ativan) 0.5 mg PO Q6 PRN PRN Reason: Anixety/Agitation Stop: 01/27/18 17:55 Last Admin: 01/14/18 09:00 Dose: 0.5 mg Losartan Potassium (Cozaar) 25 mg PO DAILY [facility] Last Admin: 01/14/18 08:43 Dose: 25 mg Magnesium Hydroxide (Milk Of Magnesia) 30 ml PO HS PRN PRN Reason: Constipation Memantine (Namenda) 10 mg PO Q12 [facility] Last Admin: 01/14/18 08:40 Dose: 10 mg Multivitamins/Minerals (Therapeutic-M Tab) 1 tab PO DAILY [facility] Last Admin: 01/14/18 08:40 Dose: 1 tab Nicotine (Nicoderm Cq) 1 patch TD DAILY [facility] Last Admin: 01/14/18 08:44 Dose: 1 patch Nystatin (Nystatin Oral Susp) 5 ml PO QID [facility] Last Admin: 01/14/18 16:37 Dose: 5 ml Pantoprazole Sodium (Protonix Ec Tab) 40 mg PO BID [facility] Last Admin: 01/14/18 16:41 Dose: 40 mg Paroxetine HCl (Paxil) 30 mg PO DAILY [facility] Prednisone (Prednisone Tab) 35 mg PO DAILY [facility] Last Admin: 01/14/18 08:39 Dose: 35 mg Promethazine HCl/Dextromethorphan (Phenergan Dm Syrup) 5 ml PO Q6 PRN PRN Reason: Cough Last Admin: 01/14/18 08:54 Dose: 5 ml Fluticasone/Salmeterol (Advair Diskus 500/50) 1 puff IH Q12 [facility] Last Admin: 01/14/18 08:40 Dose: 1 puff Thiamine HCl (Vitamin B1 Tab) 100 mg PO DAILY [facility] Last Admin: 01/14/18 08:40 Dose: 100 mg Tiotropium [place] (Spiriva) 18 mcg IH DAILY [facility] Last Admin: 01/14/18 08:46 Dose: 18 mcg Trazodone HCl (Desyrel) 150 mg PO [facility] Physical Exam - Constitutional Appears: No Acute Distress - Head Exam Head Exam: NORMAL INSPECTION - Eye Exam Eye Exam: PERRL - ENT Exam ENT Exam: Normal Exam - Neck Exam Neck exam: Positive for: Normal Inspection - Respiratory Exam Respiratory Exam: Decreased Breath Sounds (at bases) - Cardiovascular Exam Cardiovascular Exam: REGULAR RHYTHM - GI/Abdominal Exam GI & Abdominal Exam: Normal Bowel Sounds, Soft - Extremities Exam Extremities exam: Positive for: normal inspection - Back Exam Back exam: NORMAL INSPECTION - Neurological Exam Neurological exam: Alert, Oriented x3 - Psychiatric Exam Psychiatric exam: Anxious, Depressed - Skin Skin Exam: Warm Results - Vital Signs Recent Vital Signs: Last Vital Signs Temp 98.1 F 01/14/18 05:33 Pulse 77 01/14/18 08:43 Resp 18 01/14/18 05:33 BP 119/73 01/14/18 08:43 Pulse Ox reviewed [place] - Labs Result Diagrams: 01/14/18 05:45 01/14/18 05:45 Labs: Laboratory Results - last 24 hr 01/13/18 01/14/18 01/14/18 20:27 05:36 05:45 WBC 5.8 RBC 3.70 L Hgb 12.7 Hct 37.5 MCV 101.3 H MCH 34.3 H MCHC 33.9 RDW 16.1 H Plt Count 110 L pCO2 pO2 HCO3 ABG pH ABG Total CO2 ABG O2 Saturation ABG O2 Content ABG Base Excess ABG Hemoglobin ABG Carboxyhemoglobin POC ABG HHb (Measured) ABG Methemoglobin ABG O2 Capacity [place] Test A-a O2 Difference Hgb O2 Saturation FiO2 Blood Gas Comments Sodium Potassium Chloride Carbon Dioxide Anion Gap BUN Creatinine Est GFR ( Amer) Est GFR (Non-Af Amer) POC Glucose (mg/dL) 142 H 105 Random Glucose Hemoglobin A1c Calcium Ferritin Total Bilirubin AST ALT Alkaline Phosphatase Total Protein Albumin Globulin Albumin/Globulin Ratio Triglycerides Cholesterol LDL Cholesterol Direct HDL Cholesterol Vitamin B12 Folate Free T4 Thyroxine (T4) TSH 3rd Generation 01/14/18 01/14/18 01/14/18 05:45 05:45 05:45 WBC RBC Hgb Hct MCV MCH MCHC RDW Plt Count pCO2 pO2 HCO3 ABG pH ABG Total CO2 ABG O2 Saturation ABG O2 Content ABG Base Excess ABG Hemoglobin ABG Carboxyhemoglobin POC ABG HHb (Measured) ABG Methemoglobin ABG O2 Capacity [place] Test A-a O2 Difference Hgb O2 Saturation FiO2 Blood Gas Comments Sodium 139 Potassium 4.1 Chloride 98 Carbon Dioxide 40 H* Anion Gap 5 L BUN 30 H Creatinine 0.9 Est GFR ( Amer) > 60 Est GFR (Non-Af Amer) > 60 POC Glucose (mg/dL) Random Glucose 88 Hemoglobin A1c 5.7 Calcium 8.7 Ferritin 21.6 Total Bilirubin 0.2 AST 24 ALT 48 Alkaline Phosphatase 31 L D Total Protein 5.5 L Albumin 2.8 L D Globulin 2.6 Albumin/Globulin Ratio 1.1 Triglycerides 143 Cholesterol 137 LDL Cholesterol Direct 48 HDL Cholesterol 55 Vitamin B12 398 Folate 9.0 Free T4 0.75 L Thyroxine (T4) 4.92 L TSH 3rd Generation 3.57 01/14/18 01/14/18 01/14/18 07:06 11:18 15:45 WBC RBC Hgb Hct MCV MCH MCHC RDW Plt Count pCO2 53 H pO2 63 L HCO3 34.7 H ABG pH 7.47 H ABG Total CO2 40.2 H ABG O2 Saturation 95.5 ABG O2 Content 17.6 ABG Base Excess 12.7 H ABG Hemoglobin 13.5 ABG Carboxyhemoglobin 2.1 H POC ABG HHb (Measured) 4.4 ABG Methemoglobin 0.9 ABG O2 Capacity 18.4 [place] Test Yes A-a O2 Difference 85.0 Hgb O2 Saturation 92.5 L FiO2 30.0 Blood Gas Comments 3l/m nc.rr Sodium Potassium Chloride Carbon Dioxide Anion Gap BUN Creatinine Est GFR ( Amer) Est GFR (Non-Af Amer) POC Glucose (mg/dL) 156 H 237 H Random Glucose Hemoglobin A1c Calcium Ferritin Total Bilirubin AST ALT Alkaline Phosphatase Total Protein Albumin Globulin Albumin/Globulin Ratio Triglycerides Cholesterol LDL Cholesterol Direct HDL Cholesterol Vitamin B12 Folate Free T4 Thyroxine (T4) TSH 3rd Generation reviewed J.P. Assessment & Plan (1) Pneumonia Status: Acute Priority: High (2) COPD (chronic obstructive pulmonary disease) Status: Chronic Priority: Medium (3) DMII (diabetes mellitus, type 2) Status: Chronic Priority: Medium (4) Hypertension Status: Chronic Priority: Medium (5) History of throat cancer Status: Chronic - Assessment and Plan (Free Text) Plan: Continue Levaquin, Duoneb, Advair, Phenergan DM, Norvasc, Cozaar, Humalog and rest of Tx. - Date & Time Date: 01/14/18 Time: 13:00
[2018-01-15] MEDS: Albuterol-Ipratrop 3 mg / 0.5 (3 ml) UD INH SCH ×6 (04:52→23:46)
[2018-01-15] MEDS: Nystatin 100,000 Units/ml Oral Susp 5 ml UD PO SCH ×4 (08:22→21:12)
[2018-01-15] MEDS: Fluticasone-Salmeterol 500-50mcg Diskus IH SCH ×2 (08:22→21:12)
[2018-01-15] MEDS: Insulin Lispro (humaLOG) 100 Units/ml Inj SC SCH ×4 (08:25→22:10)
[2018-01-15] MEDS: levoFLOXacin 750 MG TAB PO SCH (08:26)
[2018-01-15] MEDS: Pantoprazole 40 mg EC Tab PO SCH ×2 (08:28→16:50)
[2018-01-15] MEDS: Tiotropium 18 mcg Cap For Inhalation IH SCH (08:29)
[2018-01-15] MEDS: Multivitamin With Minerals Tab PO SCH (08:30)
[2018-01-15] MEDS: Budesonide 0.5 mg/2 ml Inhal Susp UD INH SCH ×2 (09:00→23:46)
--- NOTE | 2018-01-15 13:20 | PCM.PYCHPN ---
Psychiatric Progress Note - Psychiatric Progress Note Patient seen today, length of contact: PT EVALUATED DISCUSSED WITH TEAM CHARTB REVIEWED Patient Chief Complaint: i still get delusional thoughts Problems Identified/Issues Discussed: pt seen in bed , anxious mood and affect, continues to have delusions unable to elaborate on denied perceptual disturbances. 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 deression Medication Change: No Medical Record Reviewed: Yes Mental Status Examination - Cognitive Function Orientation: Person, Place, Situation, Time Attention: WNL Concentration: Poor Association: WNL Decription of patient's judgement and insights: partial insight poor judgment - Mood Mood: Depressed, Anxious - Affect Affect: Constricted - Formal Thought Process Formal Thought Process: No Impairment - Suicidal Ideation Suicidal Ideation: No - Homicidal Ideation Homicidal Ideation: No Goal/Treatment Plan - Goal/Treatment Plan Need for Continued Stay: Remain at risks for inpatient hospitalization, Severe depression anxiety, Discharge may exacerbated symptoms Progress Toward Problem(s) and Goals/Treatment Plan: continue with neurontin and paxil
[2018-01-15] MEDS: Promethazine DM 6.25 mg-15 mg/5 ml Syrup PO PRN (13:37)
--- NOTE | 2018-01-15 16:06 | CP.PCM.PN ---
Subjective - Date & Time of Evaluation Date of Evaluation: 01/15/18 - Subjective Subjective: F/U PNA Pt smiling, no SOB with O2, occasional cough with scanty whitish phlegms. Objective - Vital Signs/Intake and Output Vital Signs (last 24 hours): Temp Pulse Resp BP Pulse Ox 98.2 F 89 20 132/60 01/15/18 15:54 01/15/18 15:54 01/15/18 15:54 01/15/18 15:54 - Medications Medications: Current Medications Acetaminophen (Tylenol 325mg Tab) 650 mg PO Q4 PRN PRN Reason: Pain, moderate (4-7) Al Hydrox/Mg Hydrox/Simethicone (Maalox Plus 30 Ml) 30 ml PO Q4 PRN PRN Reason: Dyspepsia Albuterol (Ventolin Hfa 90 Mcg/Actuation (8 G)) 2 puff IH Q8 PRN PRN Reason: Shortness of Breath Albuterol/Ipratropium (Duoneb 3 Mg/0.5 Mg (3 Ml) Ud) 3 ml INH RQ4 [facility] Last Admin: 01/15/18 13:02 Dose: 3 ml Amlodipine Besylate (Norvasc) 5 mg PO DAILY [facility] Last Admin: 01/15/18 08:27 Dose: 5 mg Atorvastatin Calcium (Lipitor) 20 mg PO HS [facility] Last Admin: 01/14/18 21:21 Dose: 20 mg Bismuth Subsalicylate (Pepto-Bismol) 524 mg PO Q4 PRN PRN Reason: Diarrhea Budesonide (Pulmicort Respules) 0.5 mg INH RQ8 [facility] Last Admin: 01/15/18 09:00 Dose: 0.5 mg Ergocalciferol (Drisdol 50,000 Intl Units Cap) 1 cap PO MO [facility] Gabapentin (Neurontin) 300 mg PO TID [facility] Last Admin: 01/15/18 13:35 Dose: 300 mg Home Med (Home Med) 1 unit PO Q4H PRN PRN Reason: Dry mouth Insulin Human Lispro (Humalog) 0 units SC [facility]; Protocol Last Admin: 01/15/18 13:34 Dose: Not Given Levofloxacin (Levaquin) 750 mg PO DAILY [facility]; Protocol Last Admin: 01/15/18 08:26 Dose: 750 mg Lorazepam (Ativan) 0.5 mg PO HS PRN PRN Reason: Insomnia Stop: 01/27/18 17:55 Last Admin: 01/14/18 22:57 Dose: 0.5 mg Lorazepam (Ativan) 0.5 mg PO Q6 PRN PRN Reason: Anixety/Agitation Stop: 01/27/18 17:55 Last Admin: 01/15/18 14:55 Dose: 0.5 mg Losartan Potassium (Cozaar) 25 mg PO DAILY [facility] Last Admin: 01/15/18 08:25 Dose: 25 mg Magnesium Hydroxide (Milk Of Magnesia) 30 ml PO HS PRN PRN Reason: Constipation Memantine (Namenda) 10 mg PO Q12 [facility] Last Admin: 01/15/18 08:26 Dose: 10 mg Multivitamins/Minerals (Therapeutic-M Tab) 1 tab PO DAILY [facility] Last Admin: 01/15/18 08:30 Dose: 1 tab Nicotine (Nicoderm Cq) 1 patch TD DAILY [facility] Last Admin: 01/15/18 08:23 Dose: 1 patch Nystatin (Nystatin Oral Susp) 5 ml PO QID [facility] Last Admin: 01/15/18 13:35 Dose: 5 ml Pantoprazole Sodium (Protonix Ec Tab) 40 mg PO BID [facility] Last Admin: 01/15/18 08:28 Dose: 40 mg Paroxetine HCl (Paxil) 30 mg PO DAILY [facility] Last Admin: 01/15/18 08:27 Dose: 30 mg Prednisone (Prednisone Tab) 35 mg PO DAILY [facility] Last Admin: 01/15/18 08:24 Dose: 35 mg Promethazine HCl/Dextromethorphan (Phenergan Dm Syrup) 5 ml PO Q6 PRN PRN Reason: Cough Last Admin: 01/15/18 13:37 Dose: 5 ml Fluticasone/Salmeterol (Advair Diskus 500/50) 1 puff IH Q12 [facility] Last Admin: 01/15/18 08:22 Dose: 1 puff Thiamine HCl (Vitamin B1 Tab) 100 mg PO DAILY [facility] Last Admin: 01/15/18 08:30 Dose: 100 mg Tiotropium [place] (Spiriva) 18 mcg IH DAILY [facility] Last Admin: 01/15/18 08:29 Dose: 18 mcg Trazodone HCl (Desyrel) 150 mg PO HS [facility] Last Admin: 01/14/18 21:21 Dose: 150 mg - Labs Labs: 01/14/18 05:45 01/14/18 05:45 - Constitutional Appears: No Acute Distress - Head Exam Head Exam: NORMAL INSPECTION - Eye Exam Eye Exam: PERRL - ENT Exam ENT Exam: Normal Exam - Neck Exam Neck Exam: Normal Inspection - Respiratory Exam Respiratory Exam: Decreased Breath Sounds (at bases), Rhonchi (few) - Cardiovascular Exam Cardiovascular Exam: REGULAR RHYTHM - GI/Abdominal Exam GI & Abdominal Exam: Soft, Normal Bowel Sounds - Extremities Exam Extremities Exam: Normal Inspection - Back Exam Back Exam: NORMAL INSPECTION - Neurological Exam Neurological Exam: Alert, Oriented x3 - Psychiatric Exam Psychiatric exam: Anxious, Depressed - Skin Skin Exam: Warm Assessment and Plan (1) Pneumonia Status: Acute (2) COPD (chronic obstructive pulmonary disease) Status: Chronic (3) DMII (diabetes mellitus, type 2) Status: Chronic (4) Hypertension Status: Chronic (5) History of throat cancer Status: Chronic - Assessment and Plan (Free Text) Plan: Continue Levaquin, Duoneb, Prednisone, Solu-Medrol, Phenergan and rest of tx.
[2018-01-16] MEDS: Albuterol-Ipratrop 3 mg / 0.5 (3 ml) UD INH SCH ×5 (04:59→20:14)
[2018-01-16 06:37] VITALS: RESP 18
[2018-01-16] MEDS: Insulin Lispro (humaLOG) 100 Units/ml Inj SC SCH ×4 (07:58→21:15)
[2018-01-16] MEDS: Nystatin 100,000 Units/ml Oral Susp 5 ml UD PO SCH ×4 (08:11→21:13)
[2018-01-16] MEDS: Multivitamin With Minerals Tab PO SCH (08:11)
[2018-01-16] MEDS: Pantoprazole 40 mg EC Tab PO SCH ×2 (08:12→16:19)
[2018-01-16] MEDS: Tiotropium 18 mcg Cap For Inhalation IH SCH (08:12)
[2018-01-16] MEDS: levoFLOXacin 750 MG TAB PO SCH (08:13)
[2018-01-16] MEDS: Budesonide 0.5 mg/2 ml Inhal Susp UD INH SCH ×2 (09:33→15:19)
[2018-01-16] MEDS: Fluticasone-Salmeterol 500-50mcg Diskus IH SCH ×2 (12:41→21:13)
--- NOTE | 2018-01-16 13:58 | PCM.PYCHPN ---
Psychiatric Progress Note - Psychiatric Progress Note Patient seen today, length of contact: PT EVALUATED DISCUSSED WITH TEAM CHARTB REVIEWED Patient Chief Complaint: the delusions are gone can I get ativan Problems Identified/Issues Discussed: pt seen in bed , anxious mood and affect, reported clearing off of the delusions , denied margarita current auditory hallucinations , denied suicidal or homicidal ideation DSM 5 Symptoms Update: alcohol induced mood disorder generalized anxiety Medication Change: No Medical Record Reviewed: Yes Mental Status Examination - Cognitive Function Orientation: Person, Place, Situation, Time Attention: WNL Concentration: Poor Association: WNL Decription of patient's judgement and insights: partial insight poor judgment - Mood Mood: Depressed, Anxious - Affect Affect: Constricted - Formal Thought Process Formal Thought Process: No Impairment - Suicidal Ideation Suicidal Ideation: No - Homicidal Ideation Homicidal Ideation: No Goal/Treatment Plan - Goal/Treatment Plan Need for Continued Stay: Remain at risks for inpatient hospitalization, Severe depression anxiety, Discharge may exacerbated symptoms Progress Toward Problem(s) and Goals/Treatment Plan: continue with neurontin and paxil CBT group and supportive therapy
[2018-01-17] MEDS: Albuterol-Ipratrop 3 mg / 0.5 (3 ml) UD INH SCH ×4 (00:50→11:13)
[2018-01-17 05:55] VITALS: TEMP 97.3; O2SAT 97
[2018-01-17] MEDS: Budesonide 0.5 mg/2 ml Inhal Susp UD INH SCH (08:44)
[2018-01-17] MEDS: Insulin Lispro (humaLOG) 100 Units/ml Inj SC SCH ×2 (09:33→13:02)
[2018-01-17] MEDS: Fluticasone-Salmeterol 500-50mcg Diskus IH SCH (10:16)
[2018-01-17] MEDS: Tiotropium 18 mcg Cap For Inhalation IH SCH (10:17)
[2018-01-17] MEDS: Nystatin 100,000 Units/ml Oral Susp 5 ml UD PO SCH ×2 (10:18→13:05)
[2018-01-17] MEDS: levoFLOXacin 750 MG TAB PO SCH (10:19)
[2018-01-17] MEDS: Pantoprazole 40 mg EC Tab PO SCH (10:21)
[2018-01-17] MEDS: Multivitamin With Minerals Tab PO SCH (10:22)
[2018-01-17 10:23] VITALS: BP 117/84; PULSE 88
--- NOTE | 2018-01-17 12:37 | PCM.PYCHDC ---
Mental Status Examination - Mental Status Examination Orientation: Person, Place, Situation, Time Memory: Intact Mood: Neutral Affect: Broad Speech: Appropriate Attention: WNL Concentration: WNL Association: WNL Fund of Knowledge: WNL Formal Thought Process: No Impairment Description of patient's judgement and insight: Fair I/J Psychotic Thoughts and Behaviors: No AH/VH/paranoia/delusions Suicidal Ideation: No Current Homicidal Ideation?: No Discharge Summary - Discharge Note Reason for Hospitalization: HPI: 72 yo female w/ h/o alcohol use disorder, depression, anxiety, presents w/ worsening depression and severe anxiety, poor sleep, appetite disturbances and intermittent feelings of hopelessness. NO AH/VH/SI/HI. 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 Reason for request. 2. Findings. 3. Follow-up Consultations: Medicine consult Summary of Hospital Course include:: 1. Description of specific treatment plan utilized for patients during their course of treatmen. 2. Summarize the time-co urse for resolution of acute symptoms and/or regressed behaviors. 3. Describe issues identified and worked on during hospitalization. 4. Describe medication utilized. 5. Describe medical problems identified and treated. 6. Reassessment of suicide risk Summary of Hospital Course: Patient was admitted to the psychiatry unit. Individual and group therapy were provided. Patient was stabilized on Neurontin, Paxil and Trazodone. Psychoeducation provided on the potential side effects of benzodiazepines. Patient reports improvement in mood. She denies acute AH/VH/SI/HI. Patient is psychiatrically stable for discharge at this time. - Final Diagnosis (DSM 5) Condition upon Discharge: STABLE DSM 5: Major Depressive Disorder; Generalized Anxiety Disorder Disposition: HOME/ ROUTINE Follow-up Treatment Plan: Depressive Disorder; Generalized Anxiety Disorder; Alcohol Use Disorder, in remission -Individual and group therapy -Medicine consult -Continue Neurontin, Paxil and Trazodone -Psychoeducation Prescriptions/Medication Reconciliation: Gabapentin [Neurontin] 300 mg PO TID #90 cap Memantine [Namenda] 10 mg PO Q12 #60 tab Nystatin [Nystatin Oral Susp] 5 ml PO QID #1 udc PARoxetine [Paxil] 30 mg PO DAILY #30 tab traZODone [Desyrel] 150 mg PO HS #90 tab - Smoking Cessation Smoking Cessation Medication prescribed: Yes - Antipsychotic Medications Pt discharged on 2 or more routine antipsychotic medications: No
--- NOTE | 2018-01-17 17:47 | CP.PCM.PN ---
Subjective - Date & Time of Evaluation Date of Evaluation: 01/17/18 - Subjective Subjective: F/U PNA Objective - Vital Signs/Intake and Output Vital Signs (last 24 hours): Temp Pulse Resp BP Pulse Ox 97.3 F L 88 18 117/84 97 01/17/18 05:53 01/17/18 10:22 01/17/18 05:53 01/17/18 10:22 01/17/18 05:53 - Labs Labs: 01/14/18 05:45 01/14/18 05:45 - Constitutional Appears: No Acute Distress - Head Exam Head Exam: NORMAL INSPECTION - Eye Exam Eye Exam: PERRL - ENT Exam ENT Exam: Normal Exam - Neck Exam Neck Exam: Normal Inspection - Respiratory Exam Respiratory Exam: Decreased Breath Sounds (mild at bases) - Cardiovascular Exam Cardiovascular Exam: REGULAR RHYTHM - GI/Abdominal Exam GI & Abdominal Exam: Soft, Normal Bowel Sounds - Extremities Exam Extremities Exam: Normal Inspection - Back Exam Back Exam: NORMAL INSPECTION - Neurological Exam Neurological Exam: Alert, Awake, Oriented x3 - Psychiatric Exam Psychiatric exam: Anxious, Depressed - Skin Skin Exam: Warm Assessment and Plan (1) Pneumonia Status: Acute (2) COPD (chronic obstructive pulmonary disease) Status: Chronic (3) DMII (diabetes mellitus, type 2) Status: Chronic (4) Hypertension Status: Chronic (5) History of throat cancer Status: Chronic
[2018-01-17] MEDS ORDERED: Ergocalciferol 50,000 Intl Units Cap PO SCH (18:06)
== END 2018-01-17 14:30 | disposition home or self-care (01) | DRG 881 ==
LOC: H.STEP 17:31
PROVIDERS: ADMIT Psychiatry & Neurology Psychiatry; ATTEND Psychiatry & Neurology Psychiatry
PROC: GZHZZZZ Group Psychotherapy (ICD-10-PCS; principal; 2018-01-13)
PROC: GZ58ZZZ Individual Psychotherapy, Cognitive-Behavioral (ICD-10-PCS; 2018-01-13)
PROC: GZ56ZZZ Individual Psychotherapy, Supportive (ICD-10-PCS; 2018-01-13)
DX: F32.9 Major depressive disorder, single episode, unspecified (principal); J18.9 Pneumonia, unspecified organism; J44.0 Chronic obstructive pulmonary disease with (acute) lower respiratory infection; F41.1 Generalized anxiety disorder; I10 Essential (primary) hypertension; Z85.819 Personal history of malignant neoplasm of unspecified site of lip, oral cavity, and pharynx; E78.00 Pure hypercholesterolemia, unspecified; E11.9 Type 2 diabetes mellitus without complications; Z87.891 Personal history of nicotine dependence; F03.90 Unspecified dementia, unspecified severity, without behavioral disturbance, psychotic disturbance, mood disturbance, and anxiety; E78.5 Hyperlipidemia, unspecified; Z99.81 Dependence on supplemental oxygen; R32 Unspecified urinary incontinence

== ENCOUNTER 2018-01-19 11:11 | Emergency (ER) | payer MEDICARE, OTHER ==
[2018-01-19 11:11] VITALS: BMI 24.7
[2018-01-19 11:15] VITALS: RESP 18; TEMP 99.9
[2018-01-19] MEDS ORDERED: Albuterol-Ipratrop 3 mg / 0.5 (3 ml) UD INH STA (11:46)
--- NOTE | 2018-01-19 11:50 | ED PDOC ---
HPI: General Adult Time Seen by Provider: 01/19/18 11:47 Chief Complaint (Nursing): Respiratory Distress Chief Complaint (Provider): sob/right hand injury History Per: Patient (72 y/o female h/o COPD with recen discharge from hospital 2 days ago. Here with additional concern of right hand injury that occurred after fall yesterday 4pm. Notes mild difficulty breathing at night. One breathing treatment today.) Past Medical History Reviewed: Historical Data, Nursing Documentation, Vital Signs Vital Signs: Last Vital Signs Temp 99.9 F H 01/19/18 11:12 Pulse 79 01/19/18 11:12 Resp 18 01/19/18 11:12 BP 124/64 01/19/18 11:12 Pulse Ox 97 01/19/18 11:12 - Medical History PMH: Anxiety, Arthritis, Bipolar Disorder, Bronchitis, Colonic Polyps, COPD (o2 dependent), Dementia, Depression, Fractures (right wrist fracture, rib fx), HTN, Hypercholesterolemia, Malignancy (squamous cell carcinoma of mouth/neck (2009)), Osteoporosis, Pneumonia, Post Traumatic Stress Disorder, Schizophrenia Denies: CHF, Diabetes, Hepatitis, HIV, Hypothyroidism, Chronic Kidney Disease, Rheumatoid Arthritis, Seizures, Sexually Transmitted Disease, TIA - Family History Family History: States: Unknown Family Hx - Immunization History Hx Tetanus Toxoid Vaccination: No Hx Influenza Vaccination: Yes Hx Pneumococcal Vaccination: Yes - Home Medications Home Medications: Ambulatory Orders Medication Instructions Recorded amLODIPine [Norvasc] 5 mg PO DAILY 03/20/17 Albuterol HFA [Ventolin HFA 90 2 puff IH Q8 PRN 08/18/17 mcg/actuation (8 g)] Atorvastatin [Lipitor] 20 mg PO HS 01/05/18 Ergocalciferol [Drisdol 50,000 50,000 unit PO MO 01/05/18 Intl Units Cap] Tiotropium [Spiriva] 18 mcg IH DAILY 01/05/18 Fluticasone/Salmeterol 500/50 1 puff IH Q12 01/07/18 [Advair Diskus 500/50] Losartan [Cozaar] 25 mg PO DAILY 01/07/18 Thiamine [Vitamin B1 Tab] 100 mg PO DAILY 01/07/18 Albuterol/Ipratropium [Duoneb 3 3 ml INH RQ4 neb 01/13/18 mg/0.5 mg (3 ml) UD] Budesonide [Pulmicort Respules] 0.5 mg INH RQ8 neb 01/13/18 Home Med 1 unit PO Q4H PRN ea 01/13/18 Nicotine 14 mg/24 hr [Nicoderm CQ] 1 patch TD DAILY patch 01/13/18 Nystatin [Nystatin Oral Susp] 5 ml PO QID udc 01/13/18 Pantoprazole [Protonix EC Tab] 40 mg PO BID ect 01/13/18 Promethazine DM [Phenergan DM 5 ml PO Q6 PRN cup 01/13/18 Syrup] levoFLOXacin [Levaquin] 750 mg PO DAILY tab 01/13/18 Gabapentin [Neurontin] 300 mg PO TID #90 cap 01/17/18 Memantine [Namenda] 10 mg PO Q12 #60 tab 01/17/18 Multimineral/Multivitamin 1 tab PO DAILY tab 01/17/18 [Therapeutic-M Tab] Nystatin [Nystatin Oral Susp] 5 ml PO QID #1 udc 01/17/18 PARoxetine [Paxil] 30 mg PO DAILY #30 tab 01/17/18 predniSONE [predniSONE Tab] 30 mg PO ASDIR tab 01/17/18 traZODone [Desyrel] 150 mg PO HS #90 tab 01/17/18 - Allergies Allergies/Adverse Reactions: Allergies Allergy/AdvReac Type Severity Reaction Status Date / Time No Known Allergies Allergy Verified 01/19/18 11:15 Review of Systems ROS Statement: Except As Marked, All Systems Reviewed And Found Negative Physical Exam - Reviewed Nursing Documentation Reviewed: Yes Vital Signs Reviewed: Yes - Physical Exam Appears: Positive for: Well, Non-toxic, No Acute Distress Head Exam: Positive for: ATRAUMATIC, NORMAL INSPECTION, NORMOCEPHALIC Skin: Positive for: Normal Color, Warm, DRY Eye Exam: Positive for: EOMI, Normal appearance, PERRL ENT: Positive for: Normal ENT Inspection Neck: Positive for: Normal, Painless ROM Cardiovascular/Chest: Positive for: Regular Rate, Rhythm Respiratory: Positive for: CNT, Normal Breath Sounds Gastrointestinal/Abdominal: Positive for: Normal Exam, Soft Back: Positive for: Normal Inspection Extremity: Positive for: Normal ROM, Tenderness, Swelling, Other (ecchymosis dorsum of right hand. 7 mm lacerationnoted dorsum of right hand.) Neurologic/Psych: Positive for: Alert, Oriented - Laboratory Results Result Diagrams: 01/19/18 12:18 01/19/18 12:18 - ECG O2 Sat by Pulse Oximetry: 97 - Progress ED Course And Treament: cxr: nad xry of hand/wrist: no fx duoneb x 1 dose in ED. patient very upset in ED. Wants to be discharged home. Thumb spica splint place right hand. Disposition - Clinical Impression Clinical Impression: Contusion of hand - Patient ED Disposition Is Patient to be Admitted: No - Disposition Disposition: Routine/Home Disposition Time: 13:54 Condition: FAIR Instructions: Contusion (DC)
[2018-01-19] MEDS ORDERED: Albuterol-Ipratrop 3 mg / 0.5 (3 ml) UD ONE (12:21)
[2018-01-19 12:38] LABS: BASO % 0.2 % (0.0-2.0); EOS % 0.1 % (0.0-4.0); HEMOGLOBIN 12.2 g/dL (12.0-16.0); LYMPH # 0.7 K/uL (1.0-4.3); LYMPH % 4.6 % (20.0-40.0); MEAN CELL VOLUME 100.4 fl (81.0-99.0); MEAN CORPUSCULAR HEMOGLOBIN 34.1 pg (27.0-31.0); MONO # 0.6 K/uL (0.0-0.8); NEUT # 14.6 K/uL (1.8-7.0); NEUT % 91.1 % (50.0-75.0); PLATELET COUNT 132 K/uL (130-400); RBC 3.56 Mil/uL (3.80-5.20); RED CELL DISTRIBUTION WIDTH 16.3 % (11.5-14.5)
[2018-01-19 13:05] LABS: ALB/GLOB RATIO 1.2 (1.0-2.1); ALBUMIN 3.5 g/dL (3.5-5.0); ALT/SGPT 50 U/L (9-52); AST/SGOT 26 U/L (14-36); BLOOD UREA NITROGEN 33 mg/dl (7-17); CALCIUM 8.7 mg/dL (8.4-10.2); GFR NON-AFRICAN AMERICAN 54
[2018-01-19 13:13] LABS: B-TYPE NATRIURETIC PEPTIDE 340 pg/ml (0-900)
[2018-01-19 13:22] LABS: LYMPHOCYTE 5 % (20-50); MONOCYTE 1 % (0-10); NEUTROPHIL 94 % (42-75); TOTAL CELLS COUNTED 100
[2018-01-19 13:23] LABS: ANISOCYTOSIS SLIGHT; PLATELET ESTIMATE SLIGHTLY DECREASED (NORMAL)
[2018-01-19 14:23] VITALS: BP 120/60; PULSE 76; O2SAT 98
--- NOTE | 2018-01-19 15:05 | RAD ---
Date of service: 01/19/2018 PROCEDURE: CHEST RADIOGRAPH, 1 VIEW HISTORY: sob COMPARISON: 01/12/2018 FINDINGS: LUNGS: The lungs are well inflated and clear. PLEURA: No pneumothorax or pleural fluid seen. CARDIOVASCULAR: The heart is normal in size. Atherosclerotic aortic arch calcifications are present. OSSEOUS STRUCTURES: There is diffuse bone demineralization. There is an old fracture deformity in the right posterior 6th rib. There is also an old fracture deformity in the right proximal humerus. VISUALIZED UPPER ABDOMEN: Normal. OTHER FINDINGS: There is elevation of the right hemidiaphragm IMPRESSION: No active pulmonary disease.
--- NOTE | 2018-01-19 15:08 | RAD ---
Date of service: 01/19/2018 PROCEDURE: Right Wrist Radiographs. HISTORY: wrist injury COMPARISON: None. FINDINGS: BONES: There is diffuse bone demineralization. There is no acute displaced fracture or bone destruction. Bone alignment is normal. JOINTS: There is severe degenerative osteoarthrosis in the scaphotrapezium and 1st and 2nd CORRECTION joints. SOFT TISSUES: Normal. OTHER FINDINGS: None. IMPRESSION: No acute displaced fracture or dislocation.
--- NOTE | 2018-01-19 15:11 | RAD ---
PROCEDURE: Right Hand Radiographs. HISTORY: injury COMPARISON: 09/14/2015. FINDINGS: BONES: There is diffuse bone demineralization. There is no acute fracture or bone destruction. Bone alignment is normal. JOINTS: There is severe degenerative osteoarthrosis in the distal interphalangeal joints of the 2nd and 3rd digits. There is mild degenerative osteoarthrosis in the remaining DIP and PIP joints. SOFT TISSUES: Normal. OTHER FINDINGS: None. IMPRESSION: No acute fracture or dislocation.
== END 2018-01-19 12:19 | disposition home or self-care (01) ==
LOC: H.ER 11:11
DX: S60.211A Contusion of right wrist, initial encounter (principal); W19.XXXA Unspecified fall, initial encounter; Y92.89 Other specified places as the place of occurrence of the external cause; J44.9 Chronic obstructive pulmonary disease, unspecified; E78.00 Pure hypercholesterolemia, unspecified; F03.90 Unspecified dementia, unspecified severity, without behavioral disturbance, psychotic disturbance, mood disturbance, and anxiety; Z85.41 Personal history of malignant neoplasm of cervix uteri; Z99.81 Dependence on supplemental oxygen

== ENCOUNTER 2018-02-08 12:53 | Emergency (ER) | payer MEDICARE, OTHER ==
[2018-02-08 12:53] VITALS: BMI 24.7
[2018-02-08 13:18] VITALS: BP 105/72; PULSE 93; RESP 18; TEMP 98.5; O2SAT 97
--- NOTE | 2018-02-08 15:14 | RAD ---
Date of service: 02/08/2018 PROCEDURE: Right Knee Radiographs. HISTORY: fall on Right knee yesterday with swelling COMPARISON: Bilateral knees 07/23/2015. FINDINGS: BONES: No acute fracture or destructive bony lesion identified. JOINTS: Further medial femorotibial joint compartment narrowing is appreciated with stable joint compartment narrowing at the patellofemoral and lateral femoral tibial compartments. No significant osteophyte development. JOINT EFFUSION: None. OTHER FINDINGS: None. IMPRESSION: Moderate osteoarthritis, slightly increased in the interval. No acute fracture or dislocation right knee.
--- NOTE | 2018-02-08 15:48 | CT ---
Date of service: 02/08/2018 PROCEDURE: CT HEAD WITHOUT CONTRAST. HISTORY: dizziness w/ fall COMPARISON: Noncontrast head CT 12/20/2017. TECHNIQUE: Axial computed tomography images were obtained through the head/brain without intravenous contrast. Radiation dose: Total exam DLP = 812.36 mGy-cm. This CT exam was performed using one or more of the following dose reduction techniques: Automated exposure control, adjustment of the mA and/or kV according to patient size, and/or use of iterative reconstruction technique. FINDINGS: HEMORRHAGE: No intracranial hemorrhage. BRAIN: Good corticomedullary differentiation is seen. Reiterated diffuse cerebral atrophy and chronic microangiopathy. No suspicious extra-axial fluid collection is identified and the midline brain anatomy appears grossly nonfocal as imaged. No mass effect identified. VENTRICLES: Unremarkable. No hydrocephalus. CALVARIUM: No destructive bony lesion or displaced fracture identified including through the skullbase. PARANASAL SINUSES: Limited right ethmoid and bilateral maxillary sinusitis identified. Prominent right sphenoid sinusitis. MASTOID AIR CELLS: Unremarkable as visualized. No inflammatory changes. OTHER FINDINGS: Bilateral exophthalmos. IMPRESSION: Stable age-related degenerative change are identified without acute intracranial findings in the interval. No fracture identified grossly. Sinusitis changes are incidentally noted as discussed above.
[2018-02-08 16:00] LABS: BASO # 0.1 K/uL (0.0-0.2); BASO % 0.8 % (0.0-2.0); EOS % 0.6 % (0.0-4.0); LYMPH # 1.7 K/uL (1.0-4.3); LYMPH % 21.5 % (20.0-40.0); MEAN CORPUSCULAR HEMOGLOBIN 32.2 pg (27.0-31.0); MEAN CORPUSCULAR HGB CONC 32.2 g/dL (33.0-37.0); MEAN PLATELET VOLUME 8.9 fl (7.2-11.7); MONO # 0.7 K/uL (0.0-0.8); MONO % 9.1 % (0.0-10.0); NEUT # 5.5 K/uL (1.8-7.0); RBC 3.73 Mil/uL (3.80-5.20); RED CELL DISTRIBUTION WIDTH 17.2 % (11.5-14.5); WHITE BLOOD COUNT 8.1 K/uL (4.8-10.8)
[2018-02-08 16:13] LABS: BLOOD UREA NITROGEN 11 mg/dl (7-17); CALCIUM 9.3 mg/dL (8.4-10.2); GFR NON-AFRICAN AMERICAN 49
--- NOTE | 2018-02-08 16:19 | CT ---
Date of service: 02/08/2018 PROCEDURE: CT NECK WITHOUT CONTRAST HISTORY: dizziness COMPARISON: Neck CT with contrast 01/12/2018. TECHNIQUE: CT of the neck without intravenous contrast. Coronal and sagittal reformats generated. Radiation dose: Total exam DLP = 273.85 mGy-cm. This CT exam was performed using one or more of the following dose reduction techniques: Automated exposure control, adjustment of the mA and/or kV according to patient size, and/or use of iterative reconstruction technique. FINDINGS: Patient status post left radical neck dissection without suspicious supra or infrahyoid neck mass identified. The left parotid gland is slightly larger than the right but without focal mass appreciable. Lack images contrast limits interpretation. Extensive left carotid bulb are and proximal to the carotid artery atherosclerosis identified with bilateral common carotid are arteries also mildly atherosclerotic. No suspicious lymphadenopathy. No suspicious findings seen related to the pharynx, glottis, parapharyngeal spaces supraglottic space or the larynx. Oral cavity is diffusely unremarkable once again. The thoracic inlet is stable appearing. CERVICAL SPINE: No fracture or focal lesion. OTHER FINDINGS: None. IMPRESSION: Stable though limited neck CT given lack images contrast. Prior radical left neck dissection reiterated. No suspicious interval mass or lymphadenopathy appreciable.
--- NOTE | 2018-02-08 16:26 | ED PDOC ---
Lower Extremity Pain/Injury Time Seen by Provider: 02/08/18 13:42 Chief Complaint (Nursing): Lower Extremity Problem/Injury Chief Complaint (Provider): Lower Extremity Problem/Injury History Per: Patient History/Exam Limitations: no limitations Onset/Duration Of Symptoms: Days (x1 day) Current Symptoms Are (Timing): Still Present Additional Complaint(s): Cary Andrews is 72 year old female with a past medical history of bipolar disorder, HTN, HLD, and COPD, who presents to the emergency department for right knee pain sustained after a fall, onset x1 day. Patient states she was recently started on gabapentin which causes her to feel shaky and dizzy every time she takes it. Patient states she has pain with flexion of her knee since yesterday. She reports that yesterday after taking medication she felt light headed and shaky which caused her to fall on her right knee. Patient noted to have swelling, prompting her to place ice on it. She further admits to palpitations at the time of dizziness. Patient admits to chronic shortness of breath unchanged from baseline yesterday or today. She denies chest pain. PMD: Wei Wynn Past Medical History Reviewed: Historical Data, Nursing Documentation, Vital Signs Vital Signs: Last Vital Signs Temp 98.5 F 02/08/18 13:12 Pulse 93 H 02/08/18 13:12 Resp 18 02/08/18 13:12 BP 105/72 02/08/18 13:12 Pulse Ox 97 02/08/18 13:12 - Medical History PMH: Anxiety, Arthritis, Bipolar Disorder, Bronchitis, Colonic Polyps, COPD (o2 dependent), Dementia, Depression, Fractures (right wrist fracture, rib fx), HTN, Hypercholesterolemia, Malignancy (squamous cell carcinoma of mouth/neck (2010)), Osteoporosis, Pneumonia, Post Traumatic Stress Disorder, Schizophrenia Denies: CHF, Diabetes, Hepatitis, HIV, Hypothyroidism, Chronic Kidney Disease, Rheumatoid Arthritis, Seizures, Sexually Transmitted Disease, TIA - Surgical History Surgical History: No Surg Hx - Family History Family History: States: Unknown Family Hx - Social History Current smoker - smoking cessation education provided: No Ex-Smoker (has not smoked in the last 12 months): Yes (quit x3 months ago) Alcohol: None Drugs: Denies - Immunization History Hx Tetanus Toxoid Vaccination: No Hx Influenza Vaccination: Yes Hx Pneumococcal Vaccination: Yes - Home Medications Home Medications: Ambulatory Orders Medication Instructions Recorded amLODIPine [Norvasc] 5 mg PO DAILY 03/20/17 Albuterol HFA [Ventolin HFA 90 2 puff IH Q8 PRN 08/18/17 mcg/actuation (8 g)] Atorvastatin [Lipitor] 20 mg PO HS 01/05/18 Ergocalciferol [Drisdol 50,000 50,000 unit PO MO 01/05/18 Intl Units Cap] Tiotropium [Spiriva] 18 mcg IH DAILY 01/05/18 Fluticasone/Salmeterol 500/50 1 puff IH Q12 01/07/18 [Advair Diskus 500/50] Losartan [Cozaar] 25 mg PO DAILY 01/07/18 Thiamine [Vitamin B1 Tab] 100 mg PO DAILY 01/07/18 Albuterol/Ipratropium [Duoneb 3 3 ml INH RQ4 neb 01/13/18 mg/0.5 mg (3 ml) UD] Budesonide [Pulmicort Respules] 0.5 mg INH RQ8 neb 01/13/18 Home Med 1 unit PO Q4H PRN ea 01/13/18 Nicotine 14 mg/24 hr [Nicoderm CQ] 1 patch TD DAILY patch 01/13/18 Nystatin [Nystatin Oral Susp] 5 ml PO QID udc 01/13/18 Pantoprazole [Protonix EC Tab] 40 mg PO BID ect 01/13/18 Promethazine DM [Phenergan DM 5 ml PO Q6 PRN cup 01/13/18 Syrup] levoFLOXacin [Levaquin] 750 mg PO DAILY tab 01/13/18 Gabapentin [Neurontin] 300 mg PO TID #90 cap 01/17/18 Memantine [Namenda] 10 mg PO Q12 #60 tab 01/17/18 Multimineral/Multivitamin 1 tab PO DAILY tab 01/17/18 [Therapeutic-M Tab] Nystatin [Nystatin Oral Susp] 5 ml PO QID #1 udc 01/17/18 PARoxetine [Paxil] 30 mg PO DAILY #30 tab 01/17/18 predniSONE [predniSONE Tab] 30 mg PO ASDIR tab 01/17/18 traZODone [Desyrel] 150 mg PO HS #90 tab 01/17/18 Ibuprofen [Motrin Tab] 600 mg PO Q6H PRN 7 Days tab 02/08/18 - Allergies Allergies/Adverse Reactions: Allergies Allergy/AdvReac Type Severity Reaction Status Date / Time No Known Allergies Allergy Verified 01/19/18 11:15 Review of Systems ROS Statement: Except As Marked, All Systems Reviewed And Found Negative Cardiovascular: Negative for: Chest Pain Gastrointestinal: Negative for: Nausea, Vomiting, Diarrhea Musculoskeletal: Positive for: Other (right knee pain with swelling) Neurological: Positive for: Dizziness Physical Exam - Reviewed Nursing Documentation Reviewed: Yes Vital Signs Reviewed: Yes - Physical Exam Head Exam: Positive for: ATRAUMATIC Eye Exam: Positive for: Normal appearance, EOMI, PERRL ENT: Positive for: Normal ENT Inspection Neck: Positive for: Normal, Painless ROM, Supple Cardiovascular/Chest: Positive for: Regular Rate, Rhythm. Negative for: Murmur Respiratory: Positive for: Normal Breath Sounds (clear to auscultation bilaterally ). Negative for: Respiratory Distress Gastrointestinal/Abdominal: Positive for: Normal Exam, Soft. Negative for: Tenderness Extremity: Positive for: Normal ROM (normal extension at the knee; normal flexion and extension at the right ankle and toes), Tenderness (minimal pain on palpation to the knee; positive pain with flexion of the knee but has decreased ROM with flexion), Swelling (right knee positive for edema on the medial portion of the right knee with mild ecchymosis). Negative for: Deformity (no deformity on the visual inspection on right hip; no pain on palpation to the right hip) Neurologic/Psych: Positive for: Alert, Oriented (x3), Other (normal sensation to touch of upper and lower extremities). Negative for: Facial Droop (no facial deformity when smiling) - Laboratory Results Result Diagrams: 02/08/18 15:54 02/08/18 15:54 - ECG O2 Sat by Pulse Oximetry: 97 (RA) Pulse Ox Interpretation: Normal Medical Decision Making Medical Decision Making: Initial Time: 14:30 Initial Plan: --CT of head and neck without contrast --EKG --BMP --Troponin I --CBC with differential --Telemetry --Left knee x-ray EKG @ 17:41: sinus, HR 96, non-specific T wave abnormality in inferior leads, no acute ischemic change. Patient is also given ibuprofen 600 mg PO x1 and an HOEMR bandage was applied to the right knee. Patient informed of knee X-ray results negative for fracture, CT head and neck w/o contrast negative for acute abnormality and recommendation for Ibuprofen for pain. Patient left w/o being given discharge instructions or prescription by nurse. -- Scribe Attestation: Documented by Roderick Romero, acting as a scribe for Sully Simms PA-C. Provider Scribe Attestation: All medical record entries made by the Scribe were at my direction and personally dictated by me. I have reviewed the chart and agree that the record accurately reflects my personal performance of the history, physical exam, medical decision making, and the department course for this patient. I have also personally directed, reviewed, and agree with the discharge instructions and disposition. Disposition - Clinical Impression Clinical Impression: Knee pain - Patient ED Disposition Is Patient to be Admitted: No Counseled Patient/Family Regarding: Studies Performed, Diagnosis, Need For Follo wup - Disposition Referrals: Wei Wynn [Primary Care Provider] - Disposition: Routine/Home Disposition Time: 18:30 Condition: STABLE Additional Instructions: Ibuprofen for pain as needed. HOMER-bandage for assistance. Continue normal activities as tolerated. Prescriptions: Ibuprofen [Motrin Tab] 600 mg PO Q6H PRN 7 Days tab PRN Reason: Pain, Moderate (4-7) Instructions: Chronic Knee Pain (DC) Forms: [employer] (Ugandan) Print Language: SUDANESE
--- NOTE | 2018-02-09 08:47 | CARD ---
APPROVED REPORT Date of service: 02/08/2018 EKG Measurement Heart [id number] <Conclusion> Normal sinus rhythm Normal Electrocardiogram
== END 2018-02-08 18:30 | disposition left against medical advice (07) ==
LOC: SUPCPDRO 12:53 → H.ER 12:53
DX: M25.561 Pain in right knee (principal); S09.90XA Unspecified injury of head, initial encounter; W19.XXXA Unspecified fall, initial encounter; Y92.89 Other specified places as the place of occurrence of the external cause; E78.00 Pure hypercholesterolemia, unspecified; F03.90 Unspecified dementia, unspecified severity, without behavioral disturbance, psychotic disturbance, mood disturbance, and anxiety; F20.9 Schizophrenia, unspecified; F31.9 Bipolar disorder, unspecified; F41.9 Anxiety disorder, unspecified; I10 Essential (primary) hypertension; J44.9 Chronic obstructive pulmonary disease, unspecified; M81.0 Age-related osteoporosis without current pathological fracture; Z85.41 Personal history of malignant neoplasm of cervix uteri; Z99.81 Dependence on supplemental oxygen

== ENCOUNTER 2018-02-15 16:02 | Emergency (ER) | payer MEDICARE, OTHER ==
[2018-02-15 16:03] VITALS: BMI 24.7
--- NOTE | 2018-02-15 17:10 | ED PDOC ---
HPI: Abdomen Time Seen by Provider: 02/15/18 16:26 Chief Complaint (Nursing): Abdominal Pain Chief Complaint (Provider): Abdominal Pain History Per: Patient History/Exam Limitations: no limitations Onset/Duration Of Symptoms: Days (x2) Current Symptoms Are (Timing): Still Present Additional Complaint(s): 72 year old female, well-known to ED for alcohol abuse, presents for an evaluation of abdominal pain with multiple episodes of loose stools status post alcohol relapse, states binging on vodka for last week. Patient states she binged on 2 bottles of vodka after a in the family, subsequently had fall causing pain to her right shoulder. She denies any headache, focal weakness, vomiting, head or neck trauma. PCP: Dr. Wei Wynn Past Medical History Reviewed: Historical Data, Nursing Documentation, Vital Signs Vital Signs: Last Vital Signs Temp 98.8 F 02/15/18 16:05 Pulse 88 02/15/18 16:05 Resp 20 02/15/18 16:05 BP 134/67 02/15/18 16:05 Pulse Ox 99 02/15/18 16:05 - Medical History PMH: Anxiety, Arthritis, Bipolar Disorder, Bronchitis, Colonic Polyps, COPD, Dem entia, Depression, Fractures (right wrist fracture, rib fx), HTN, Hypercholesterolemia, Malignancy (squamous cell carcinoma of mouth/neck (2010)), Osteoporosis, Pneumonia, Post Traumatic Stress Disorder, Schizophrenia Denies: CHF, Diabetes, Hepatitis, HIV, Hypothyroidism, Chronic Kidney Disease, Rheumatoid Arthritis, Seizures, Sexually Transmitted Disease, TIA - Family History Family History: States: Unknown Family Hx - Social History Alcohol: > 2 Drinks/Day - Immunization History Hx Tetanus Toxoid Vaccination: No Hx Influenza Vaccination: Yes Hx Pneumococcal Vaccination: Yes - Home Medications Home Medications: Ambulatory Orders Medication Instructions Recorded amLODIPine [Norvasc] 5 mg PO DAILY 03/20/17 Albuterol HFA [Ventolin HFA 90 2 puff IH Q8 PRN 08/18/17 mcg/actuation (8 g)] Atorvastatin [Lipitor] 20 mg PO HS 01/05/18 Ergocalciferol [Drisdol 50,000 50,000 unit PO MO 01/05/18 Intl Units Cap] Tiotropium [Spiriva] 18 mcg IH DAILY 01/05/18 Fluticasone/Salmeterol 500/50 1 puff IH Q12 01/07/18 [Advair Diskus 500/50] Losartan [Cozaar] 25 mg PO DAILY 01/07/18 Thiamine [Vitamin B1 Tab] 100 mg PO DAILY 01/07/18 Albuterol/Ipratropium [Duoneb 3 3 ml INH RQ4 neb 01/13/18 mg/0.5 mg (3 ml) UD] Budesonide [Pulmicort Respules] 0.5 mg INH RQ8 neb 01/13/18 Home Med 1 unit PO Q4H PRN ea 01/13/18 Nicotine 14 mg/24 hr [Nicoderm CQ] 1 patch TD DAILY patch 01/13/18 Nystatin [Nystatin Oral Susp] 5 ml PO QID udc 01/13/18 Pantoprazole [Protonix EC Tab] 40 mg PO BID ect 01/13/18 Promethazine DM [Phenergan DM 5 ml PO Q6 PRN cup 01/13/18 Syrup] levoFLOXacin [Levaquin] 750 mg PO DAILY tab 01/13/18 Gabapentin [Neurontin] 300 mg PO TID #90 cap 01/17/18 Memantine [Namenda] 10 mg PO Q12 #60 tab 01/17/18 Multimineral/Multivitamin 1 tab PO DAILY tab 01/17/18 [Therapeutic-M Tab] Nystatin [Nystatin Oral Susp] 5 ml PO QID #1 udc 01/17/18 PARoxetine [Paxil] 30 mg PO DAILY #30 tab 01/17/18 predniSONE [predniSONE Tab] 30 mg PO ASDIR tab 01/17/18 traZODone [Desyrel] 150 mg PO HS #90 tab 01/17/18 Ibuprofen [Motrin Tab] 600 mg PO Q6H PRN 7 Days tab 02/08/18 - Allergies Allergies/Adverse Reactions: Allergies Allergy/AdvReac Type Severity Reaction Status Date / Time No Known Allergies Allergy Verified 01/19/18 11:15 Review of Systems ROS Statement: Except As Marked, All Systems Reviewed And Found Negative Gastrointestinal: Positive for: Abdominal Pain, Diarrhea. Negative for: Vomiting Musculoskeletal: Positive for: Shoulder Pain (right-sided). Negative for: Neck Pain (or trauma) Neurological: Negative for: Weakness (focal), Headache (or head trauma) Physical Exam - Reviewed Nursing Documentation Reviewed: Yes Vital Signs Reviewed: Yes - Physical Exam Appears: Positive for: Non-toxic, No Acute Distress (elderly appearance) Head Exam: Positive for: ATRAUMATIC, NORMAL INSPECTION, NORMOCEPHALIC Skin: Positive for: Pallor (mildly). Negative for: Normal Color Eye Exam: Positive for: Normal appearance, EOMI, PERRL ENT: Positive for: Other (dry mucous membranes) Neck: Positive for: Normal Cardiovascular/Chest: Positive for: Regular Rate, Rhythm Respiratory: Positive for: Normal Breath Sounds. Negative for: Respiratory Dis tress Gastrointestinal/Abdominal: Positive for: Soft, Tenderness (diffuse mildly). Negative for: Guarding Extremity: Positive for: Normal ROM (upper/lower), Other (4cm ecchymotic area to right outer arm). Negative for: Deformity (upper/lower) Neurologic/Psych: Positive for: Alert, dinker II-XII (grossly intact), Oriented (x3 ). Negative for: Motor/Sensory Deficits, Aphasia - Laboratory Results Result Diagrams: 02/15/18 17:25 02/15/18 17:25 - ECG O2 Sat by Pulse Oximetry: 99 (RA) Pulse Ox Interpretation: Normal Medical Decision Making Medical Decision Making: Time: 1639 Initial Plan: work-up for recurrent alcohol abuse. R/O pancreatitis and other abdominal pathology. * EKG * Labs * CXR * Pepcid 20mg IV * Toradol 15mg IV * XR shoulder (right) * 7p c/o diarrhea and withdrawal symptoms. librium 25mg ordered PO approx 930p eval by crisis, clear for discharge, patient recently admitted to psych but denies suicidal thoughts endorse 11pm Dr Copeland pending CT abd pelv Scribe Attestation: Documented by Kiana Spence, acting as a scribe for Florentino Escamilla III, DO. Provider Scribe Attestation: All medical record entries made by the Scribe were at my direction and personally dictated by me. I have reviewed the chart and agree that the record accurately reflects my personal performance of the history, physical exam, medical decision making, and the department course for this patient. I have also personally directed, reviewed, and agree with the discharge instructions and disposition. Disposition - Clinical Impression Clinical Impression: Alcohol abuse, Alcoholism, Abdominal pain in female - Patient ED Disposition Is Patient to be Admitted: Transfer of Care - Disposition Disposition: Transfer of Care Disposition Time: 23:00 Condition: STABLE Forms: [facility] [employer] (Turkish) Patient Signed Over To: Gallo Copeland Handoff Comments: pending CT
[2018-02-15 17:33] LABS: BASO # 0.1 K/uL (0.0-0.2); HEMOGLOBIN 12.3 g/dL (12.0-16.0); LYMPH # 1.3 K/uL (1.0-4.3); LYMPH % 14.5 % (20.0-40.0); MEAN CELL VOLUME 97.2 fl (81.0-99.0); MEAN CORPUSCULAR HEMOGLOBIN 31.6 pg (27.0-31.0); MEAN CORPUSCULAR HGB CONC 32.5 g/dL (33.0-37.0); MEAN PLATELET VOLUME 7.8 fl (7.2-11.7); MONO # 0.9 K/uL (0.0-0.8); MONO % 9.4 % (0.0-10.0); NEUT # 6.9 K/uL (1.8-7.0); NEUT % 75.1 % (50.0-75.0); RBC 3.9 Mil/uL (3.80-5.20); RED CELL DISTRIBUTION WIDTH 17.3 % (11.5-14.5); WHITE BLOOD COUNT 9.2 K/uL (4.8-10.8)
[2018-02-15 17:45] LABS: ALB/GLOB RATIO 1.4 (1.0-2.1); ALBUMIN 4.1 g/dL (3.5-5.0); ALT/SGPT 25 U/L (9-52); AST/SGOT 29 U/L (14-36); BLOOD UREA NITROGEN 9 mg/dl (7-17); CALCIUM 9.2 mg/dL (8.4-10.2); GFR NON-AFRICAN AMERICAN > 60; LIPASE 56 U/L (23-300)
--- NOTE | 2018-02-15 18:50 | RAD ---
HISTORY: SOB COMPARISON: Chest x-ray performed 01/19/18 TECHNIQUE: Chest, one view. FINDINGS: Examination limited by habitus and hypoinflation. LUNGS: Mild pulmonary venous congestion versus vascular crowding due to hypoinflation. Please note that chest x-ray has limited sensitivity for the detection of pulmonary masses. PLEURA: No significant pleural effusion identified. No definite pneumothorax. CARDIOVASCULAR: Cardiomegaly. Dense atherosclerotic calcification present. OSSEOUS STRUCTURES: Osseous demineralization. High-riding humeral heads may be seen in the setting of chronic rotator cuff injuries. Chronic appearing right rib fracture deformity as well as chronic deformity of the proximal right humerus. VISUALIZED UPPER ABDOMEN: Elevation/eventration of the right hemidiaphragm. OTHER FINDINGS: None. IMPRESSION: Mild pulmonary venous congestion versus vascular crowding due to hypoinflation. Additional findings as above.
--- NOTE | 2018-02-15 18:54 | RAD ---
PROCEDURE: Radiographs of the Right Shoulder HISTORY: fall COMPARISON: Right shoulder radiographs performed 07/28/08 FINDINGS: BONES: Osseous demineralization limits evaluation for acute fracture lines. High-riding humeral head in the setting of chronic rotator cuff injury. Deformity of the proximal right humerus appears chronic. The distal clavicle and underlying ribs appear intact. JOINTS: No acute dislocation. SOFT TISSUES: Soft tissue swelling. No evidence of radiopaque foreign body. IMPRESSION: Diffuse osseous demineralization limits evaluation for acute fracture lines. Soft tissue swelling. Chronic appearing deformity of the proximal right humerus. If high clinical suspicion of acute fracture, recommend further evaluation with cross-sectional imaging.
[2018-02-15] MEDS ORDERED: Iohexol 240 (50 ml) PO ONE (20:14)
[2018-02-15] MEDS ORDERED: Iohexol 240 (50 ml) ONE (22:24)
--- NOTE | 2018-02-15 23:40 | ED PDOC ---
- Laboratory Results Result Diagrams: 02/15/18 17:25 02/15/18 17:25 - ECG O2 Sat by Pulse Oximetry: 96 (RA) Pulse Ox Interpretation: Normal Medical Decision Making Medical Decision Makin Patient is endorsed to provider by Dr. Escamilla, pending CT and revaluation 138 --CT ABD/Pelvis FINDINGS: LUNG BASES: The lung bases appear clear. No pleural effusions are seen. LIVER: Unremarkable. 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 CBD is dilated to 13 mm. Consider correlation with US. PANCREAS: Unremarkable. SPLEEN: Unremarkable. ADRENAL GLANDS: Unremarkable. KIDNEYS, URETERS, AND BLADDER: The kidneys appear within normal limits. There is no hydronephrosis or hydroureter. No urinary calculi are seen. STOMACH AND BOWEL: Dilated loops of mid abdominal bowel to 3.5 cm with air fluid levels and collapse of distal ileum compatible with small bowel obstruction. Oral contrast does not pass into large bowel. APPENDIX: No evidence of acute appendicitis on CT examination. PERITONEUM: Small amount of free pelvic fluid. No free air. LYMPH NODES: No lymphadenopathy is evident. REPRODUCTIVE: Status post complete hysterectomy. VASCULATURE: No evidence of abdominal aortic aneurysm. BONES: T12 moderate vertebral body fracture, likely chronic. IMPRESSION: 1. T12 moderate vertebral body fracture, likely chronic. 2. 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 CBD is dilated to 13 mm. Consider correlation with US. 3. Findings compatible with distal small bowel obstruction. 0520 --Surgical consult ordered on basis of CT findings. Discussed with neurosurgical physician assistant Dr. Macias who discussed further with Dr. Sanchez. Patient is to have flat plate abdominal X-ray at 0700 to further assess if patient does have small bowel obstruction. 0700 --Patient endorsed to Dr. Soriano by Dr. Copeland pending x-ray and surgical re- evaluation ----- Scribe Attestation: Documented by Rell Betancourt, acting as a scribe for Gallo Copeland MD. Provider Scribe Attestation: All medical record entries made by the Scribe were at my direction and personally dictated by me. I have reviewed the chart and agree that the record accurately reflects my personal performance of the history, physical exam, medical decision making, and the department course for this patient. I have also personally directed, reviewed, and agree with the discharge instructions and disposition. Disposition - Clinical Impression Clinical Impression: Alcohol abuse, Alcoholism, Abdominal pain in female - POA Present On Arrival: None - Disposition Disposition: Transfer of Care Disposition Time: 07:00 Condition: FAIR Forms: [employer] ([place])
[2018-02-16] MEDS ORDERED: Iohexol 300 100 ML IJ ONE (00:29)
[2018-02-16] MEDS ORDERED: Sodium Chloride 0.9% 50 ML IV ONE (00:29)
--- NOTE | 2018-02-16 02:48 | CP.PCM.CON ---
History of Present Illness - History of Present Illness History of Present Illness: Surgery: Dr. Sanchez CC: ABd pain diarrhea HPI:72F w. pmh of ETOH abuse presents to ED following relapse of drinking this week. She has not had anything to eat in 3 days 2/2 drinking. Today she states she woke up with diffuse abd pain that was constant. Pain was accompanied by multiple episodes of diarrhea prompting her to come to ED. CT was done which showed distal SBO. When pt examined, she states that she is feeling much better. She denies any N/V, and she is requesting sandwiches to eat. PMHx: HTN, HLD, COPD, oropharyngeal cancer PSHx: Oropharyngeal Cancer resection in 2002, Hysterectomy in 1977 Meds: MAR reviewed Allergies: NKA Social: ETOH abuse, +Tobacco, no drugs Fhx: Non-contributory Review of Systems - Review of Systems All systems: reviewed and no additional remarkable complaints except (HPI) Past Patient History - Infectious Disease Hx of Infectious Diseases: None - Tetanus Immunizations Tetanus Immunization: Unknown - Past Medical History & Family History Past Medical History?: Yes - Past Social History Alcohol: > 2 Drinks/Day - CARDIAC Hx Congestive Heart Failure: No Hx Hypercholesterolemia: Yes Hx Hypertension: Yes - PULMONARY Hx Bronchitis: Yes Hx Chronic Obstructive Pulmonary Disease (COPD): Yes Hx Pneumonia: Yes - NEUROLOGICAL Hx Dementia: Yes Hx Seizures: No Hx Transient Ischemic Attacks (TIA): No - HEENT Hx HEENT Problems: Yes Hx Cataracts: Yes - RENAL Hx Chronic Kidney Disease: No - ENDOCRINE/METABOLIC Hx Hypothyroidism: No - HEMATOLOGICAL/ONCOLOGICAL Hx Human Immunodeficiency Virus (HIV): No - INTEGUMENTARY Hx Squamous Cell: Yes (No Chemo treatment; surgery 10 yrs ago at [facility]) - MUSCULOSKELETAL/RHEUMATOLOGICAL Hx Arthritis: Yes Hx Fractures: Yes (right wrist fracture, rib fx) Hx Osteoporosis: Yes Hx Rheumatoid Arthritis: No - GASTROINTESTINAL Hx Gastrointestinal Disorders: No - GENITOURINARY/GYNECOLOGICAL Hx Sexually Transmitted Disorders: No - PSYCHIATRIC Hx Anxiety: Yes Hx Bipolar Disorder: Yes Hx Depression: Yes Hx Post Traumatic Stress Disorder: Yes Hx Schizophrenia: Yes - SURGICAL HISTORY Hx Surgeries: Yes Hx Hysterectomy: Yes (Partial) Other/Comment: mouth and neck CA SX - ANESTHESIA Hx Anesthesia: Yes Hx Anesthesia Reactions: No Hx Malignant Hyperthermia: No Meds Allergies/Adverse Reactions: Allergies Allergy/AdvReac Type Severity Reaction Status Date / Time No Known Allergies Allergy Verified 01/19/18 11:15 Physical Exam - Constitutional Appears: Non-toxic, No Acute Distress - Head Exam Head Exam: ATRAUMATIC, NORMOCEPHALIC - Eye Exam Eye Exam: EOMI - ENT Exam ENT Exam: Mucous Membranes Moist - Neck Exam Neck exam: Positive for: Full Rom - Respiratory Exam Respiratory Exam: NORMAL BREATHING PATTERN. absent: Accessory Muscle Use, Respiratory Distress - GI/Abdominal Exam GI & Abdominal Exam: Soft. absent: Distended, Firm, Guarding, Rebound, Rigid, Tenderness - Extremities Exam Extremities exam: Negative for: calf tenderness, pedal edema - Neurological Exam Neurological exam: Alert, Oriented x3 - Psychiatric Exam Psychiatric exam: Normal Affect, Normal Mood - Skin Skin Exam: Dry, Normal Color, Warm Results - Vital Signs Recent Vital Signs: Last Vital Signs Temp 98.8 F 02/15/18 22:46 Pulse 78 02/15/18 22:46 Resp 20 02/15/18 22:46 BP 125/58 L 02/15/18 22:46 Pulse Ox 96 02/16/18 01:49 - Labs Result Diagrams: 02/15/18 17:25 02/15/18 17:25 Labs: Laboratory Results - last 24 hr 02/15/18 02/15/18 17:25 17:25 WBC 9.2 RBC 3.90 Hgb 12.3 Hct 37.9 MCV 97.2 D MCH 31.6 H MCHC 32.5 L RDW 17.3 H Plt Count 218 MPV 7.8 Neut % (Auto) 75.1 H Lymph % (Auto) 14.5 L [place] % (Auto) 9.4 Eos % (Auto) 0.0 Baso % (Auto) 1.0 Neut # (Auto) 6.9 Lymph # (Auto) 1.3 [place] # (Auto) 0.9 H Eos # (Auto) 0.0 Baso # (Auto) 0.1 Sodium 140 Potassium 3.8 Chloride 108 H Carbon Dioxide 27 Anion Gap 9 L BUN 9 Creatinine 0.7 Est GFR ( Amer) > 60 Est GFR (Non-Af Amer) > 60 Random Glucose 128 H Calcium 9.2 Total Bilirubin 0.4 AST 29 ALT 25 Alkaline Phosphatase 53 Troponin I < 0.0120 Total Protein 7.1 Albumin 4.1 Globulin 3.0 Albumin/Globulin Ratio 1.4 Lipase 56 Alcohol, Quantitative < 10 - Imaging and Cardiology CT scan - abdomen Status: Image reviewed by me, Report reviewed by me Assessment & Plan - Assessment and Plan (Free Text) Assessment: 72F w. SBO, clinically improving -AXR 700AM, if contrast is seen in colon, pt can be started on diet -If diet tolerated, clear for D/C from surgical standpoint -d/w attending Zemaitis PGY4
[2018-02-16 05:58] VITALS: RESP 17
--- NOTE | 2018-02-16 07:51 | RAD ---
Date of service: 02/16/2018 HISTORY: r/o obstruction COMPARISON: CT abdomen and pelvis report noted FINDINGS: BOWEL: Colonic contrast present from prior same-day CT study No obstruction appreciated. No free air. BONES: Osteopenia, diffuse thoraco lumbar spondylosis and some thoraco lumbar level vertebral body decreased heights-possible osteoporotic compression fractures and/or degenerative anterior wedging of unknown chronicity. OTHER FINDINGS: None. IMPRESSION: No obstruction appreciated on this exam. Other findings as above.
--- NOTE | 2018-02-16 07:51 | ED PDOC ---
- Laboratory Results Result Diagrams: 02/15/18 17:25 02/15/18 17:25 - ECG O2 Sat by Pulse Oximetry: 96 (RA) Medical Decision Making Medical Decision Making: received patient from Dr. Copeland, patient is pending repeat x-ray as followup of absent contrast in the large bowels on CT scan. x-rays reviewed. evidence of contrast in left colon and sigmoid. patient is h ungry and may be fed. patient tolerated PO. Disposition Doctor Will See Patient In The: Office Counseled Patient/Family Regarding: Diagnosis - Clinical Impression Clinical Impression: Alcohol abuse, Alcoholism, Abdominal pain in female - POA Present On Arrival: None - Disposition Disposition: Routine/Home Disposition Time: 08:45 Condition: FAIR Instructions: Alcohol Abuse and Alcoholism (DC) Forms: [facility] (Citizen Of [place])
[2018-02-16 09:19] VITALS: BP 152/73; PULSE 81; TEMP 98.2; O2SAT 98
--- NOTE | 2018-02-16 09:28 | CARD ---
APPROVED REPORT Date of service: 02/15/2018 EKG Measurement Heart [id number] MD [id number] <Conclusion> Normal sinus rhythm Left axis deviation Abnormal ECG
--- NOTE | 2018-02-16 10:35 | RAD ---
Date of service: 02/15/2018 HISTORY: Evaluate for infiltrate COMPARISON: 02/15/2018. TECHNIQUE: Chest PA and lateral FINDINGS: LINES AND TUBES: None. LUNG AND PLEURA: There are low lung volumes. The lungs are clear. No pleural effusion or pneumothorax. HEART AND MEDIASTINUM: There is mild cardiomegaly. Atherosclerotic aortic arch calcifications are present. The hilar and mediastinal contours are within normal limits. SKELETAL STRUCTURES: The bony structures are within normal limits for the patient's age. VISUALIZED UPPER ABDOMEN: Normal. OTHER FINDINGS: None. IMPRESSION: No active pulmonary disease.
--- NOTE | 2018-02-16 12:28 | CT ---
Date of service: 02/16/2018 PROCEDURE: CT Abdomen and Pelvis with contrast HISTORY: abdominal pain hx Crohns COMPARISON: 08/18/2017 TECHNIQUE: Contrast dose: 90 mL Omnipaque 300 Radiation dose: Total exam DLP = 326.73 mGy-cm. This CT exam was performed using one or more of the following dose reduction techniques: Automated exposure control, adjustment of the mA and/or kV according to patient size, and/or use of iterative reconstruction technique. FINDINGS: LOWER THORAX: The prior the lingular extreme left lateral lung base pleural and/or parenchymal based nodularity is not appreciate on this exam. The prior study may have been slightly more cephalad than exam starting level. LIVER: Diffuse fatty infiltration of the liver. No gross lesion or ductal dilatation. GALLBLADDER AND BILE DUCTS: No normal appearing gallbladder in a typical gallbladder fossa is noted. Instead what appears to be the gallbladder (no history of cholecystectomy no clips noted) may be a grossly contracted gallbladder with calcification possibly within its wall-a porcelain gallbladder as well as a contracted gallbladder with gallstones. This calcific appearance is similar and is noted on the current study axis series 2, image 21. Anterior extending more centrally towards the kiera hepatis and intrahepatic branching main all veins are again noted mild prominent intrahepatic bile ducts here. This appearance is unchanged. This fullness to the biliary tree continues down into the pancreatic head region appears as before. 1 part of this dilated extrahepatic bile duct system is 3.6 x 1.2 cm in may capture a transverse coursing segment of it PANCREAS: Unremarkable. No gross lesion or ductal dilatation. SPLEEN: Unremarkable. ADRENALS: Unremarkable. No mass. KIDNEYS AND URETERS: A left extra renal pelviectasis any right extra renal pelviectasis status are Raynaud it. No intrarenal the caliectasis to suggest obstructive hydronephrosis noted. Function appear symmetrical. VASCULATURE: Unremarkable. No aortic aneurysm. There is presence of aortic atherosclerotic calcification and mural plaque on cross sectional studies. BOWEL: The small bowel loops are more dilated in caliber on the current study. The distal ileum appears collapsed. The distal small bowel obstruction is inferred. No obstructing mass seen. No orally administered contrast is seen in the colon. No large bowel obstruction. No gross mural thickening. APPENDIX: Normal appendix. PERITONEUM: There is some free fluid in the right inferior hemipelvis. No free air. LYMPH NODES: Unremarkable. No enlarged lymph nodes. BLADDER: Unremarkable. REPRODUCTIVE: Nonvisualized uterus-inferred hysterectomy status BONES: Left posterior old healed rib fracture deformity similar-appearing. Old compression deformity of T12 vertebral body-similar OTHER FINDINGS: None. IMPRESSION: Distal small bowel obstruction. Probable contracted gallbladder possibly a porcelain gallbladder with gallstones. Common bile duct/extra and intrahepatic (periportal) bile duct dilatation suggested-similar to 08/18/2017. T12 moderate vertebral body fracture-similar to 08/18/2017. Other findings as above. Concordant results (preliminary interpretation) provided by [employer].
== END 2018-02-16 09:33 | disposition home or self-care (01) ==
LOC: H.ER 16:02
DX: R10.9 Unspecified abdominal pain (principal); F10.20 Alcohol dependence, uncomplicated; F03.90 Unspecified dementia, unspecified severity, without behavioral disturbance, psychotic disturbance, mood disturbance, and anxiety; I10 Essential (primary) hypertension; E78.00 Pure hypercholesterolemia, unspecified; K50.90 Crohn's disease, unspecified, without complications; Z85.41 Personal history of malignant neoplasm of cervix uteri; K80.20 Calculus of gallbladder without cholecystitis without obstruction; K56.609 Unspecified intestinal obstruction, unspecified as to partial versus complete obstruction
CPT/HCPCS: 71045; 71046; 73030; 74018; 74177; 80053; 83690; 84484; 85025; 93005; 96374; 96375; 99285; G0480; J1885; Q9966; Q9967

== ENCOUNTER 2018-03-04 10:36 | Emergency (ER) | payer MEDICARE, OTHER ==
[2018-03-04 10:36] VITALS: BMI 24.7
[2018-03-04] MEDS ORDERED: Sodium Chloride 0.9% 500 ML IV ONE (11:43)
--- NOTE | 2018-03-04 11:52 | ED PDOC ---
HPI: Psych/Substance Abuse Time Seen by Provider: 03/04/18 11:03 Chief Complaint (Nursing): Substance Abuse Onset/Duration Of Symptoms: Days Current Symptoms Are (Timing): Still Present Suicide/Self Injury Attempted (Context): None Modifying Factor(s): Alcohol Associated Symptoms: Depression Additional Complaint(s): 72 y/o F with hx of schizophrenia, alcohol abuse, bipolar disorder and depression who presents to ED stating that she feels like she needs help with ETOH withdrawal symptoms. Pt resting comfortably upon my evaluation. She states that she last drank alcohol 5 days ago, 2 pints of vodka. She has been feeling very jittery and confused, weak and unable to walk to gait instability. She further states that she has been having visual hallucinations and has run out of some of her medications. She is seeing cats in our hallway and children with their mothers in her home. Has been having suicidal thoughts b/c of how she has been feeling lately but does not have a plan. Denies homicidal ideations or auditory hallucinations. Denies C/P, palpitations. Past Medical History Reviewed: Historical Data, Nursing Documentation, Vital Signs Vital Signs: Last Vital Signs Temp 99.0 F 03/04/18 10:38 Pulse 121 H 03/04/18 10:38 Resp 20 03/04/18 10:38 BP 108/60 03/04/18 10:38 Pulse Ox 96 03/04/18 10:38 - Medical History PMH: Anxiety, Arthritis, Bipolar Disorder, Bronchitis, Colonic Polyps, COPD, Dementia, Depression, Fractures (right wrist fracture, rib fx), HTN, Hypercholesterolemia, Malignancy (squamous cell carcinoma of mouth/neck (2009)), Osteoporosis, Pneumonia, Post Traumatic Stress Disorder, Schizophrenia Denies: CHF, Diabetes, Hepatitis, HIV, Hypothyroidism, Chronic Kidney Disease, Rheumatoid Arthritis, Seizures, Sexually Transmitted Disease, TIA - Family History Family History: States: Unknown Family Hx - Immunization History Hx Tetanus Toxoid Vaccination: No Hx Influenza Vaccination: Yes Hx Pneumococcal Vaccination: Yes - Home Medications Home Medications: Ambulatory Orders Medication Instructions Recorded RX: amLODIPine [Norvasc] 5 mg PO DAILY 03/20/17 RX: Albuterol HFA [Ventolin HFA 90 2 puff IH Q6 PRN 08/18/17 mcg/actuation (8 g)] RX: Atorvastatin [Lipitor] 20 mg PO HS 01/05/18 RX: Tiotropium [Spiriva] 18 mcg IH DAILY 01/05/18 RX: Losartan [Cozaar] 25 mg PO DAILY 01/07/18 RX: Thiamine [Vitamin B1 Tab] 100 mg PO DAILY 01/07/18 PARoxetine [Paxil] 30 mg PO DAILY #30 tab 01/17/18 RX: Gabapentin [Neurontin] 300 mg PO TID #90 cap 01/17/18 RX: Memantine [Namenda] 10 mg PO Q12 #60 tab 01/17/18 RX: Multimineral/Multivitamin 1 tab PO DAILY tab 01/17/18 [Therapeutic-M Tab] RX: traZODone [Desyrel] 150 mg PO HS #90 tab 01/17/18 Chrom [place] [Garcinia 1 tab PO TID 03/04/18 Cambogia Tablet] Fluticasone/Salmeterol [Advair 1 puff IH Q12 03/04/18 250-50 Diskus] Linaclotide [Linzess] 145 mcg PO DAILY 03/04/18 Meloxicam [Mobic] 7.5 mg PO DAILY 03/04/18 RX: Ibuprofen [Motrin Tab] 200 mg PO Q6 PRN 03/04/18 - Allergies Allergies/Adverse Reactions: Allergies Allergy/AdvReac Type Severity Reaction Status Date / Time No Known Allergies Allergy Verified 01/19/18 11:15 Physical Exam - Reviewed Nursing Documentation Reviewed: Yes Vital Signs Reviewed: Yes - Physical Exam Appears: Positive for: Non-toxic Skin: Positive for: Normal Color Eye Exam: Positive for: Normal appearance Neck: Positive for: Normal, Supple Cardiovascular/Chest: Positive for: Tachycardia. Negative for: Murmur Respiratory: Positive for: Normal Breath Sounds Gastrointestinal/Abdominal: Positive for: Normal Exam Back: Positive for: Normal Inspection Extremity: Positive for: Normal ROM (in B/L upper and lower extremities), Other (Left elbow with approximately 1.5cm mobile nodule on posterior aspect) Neurologic/Psych: Positive for: Alert, Oriented, Mood/Affect (appropriate), Other (normal proprioception). Negative for: Motor/Sensory Deficits, Facial Droop - Laboratory Results Result Diagrams: 03/04/18 12:10 03/04/18 12:10 - ECG O2 Sat by Pulse Oximetry: 96 Medical Decision Making Medical Decision Making: CBC, CMP, Urine drug screen, serum alcohol Librium 25mg PO x 1 NS 1L bolus EKG Crisis evaluation for suicidal ideations K = 3.1, given Potassium 20meq IV and 20meq PO 15:00: Re-evaluated, HR improved from 120s to 90s. 16:00: seen by Crisis who feel that patient is unsafe to go home due to non- compliance and concern for ETOH withdrawal as well as suicidal ideations. Pt to be screened for Involuntary admission by [facility]. Pt does not want to stay but is willing to stay to receive further Librium. 2nd dose of Librium 25mg PO x 1 ordered. 20:15: pt endorsed to LISA Boateng pending [facility] evaluation. Disposition - Clinical Impression Clinical Impression: Alcohol withdrawal, Suicidal ideations - Patient ED Disposition Is Patient to be Admitted: Transfer of Care Discussed With DrDave: Darryl Montanez - Disposition Disposition: Transfer of Care Disposition Time: 20:15 Condition: STABLE Forms: [employer] ([place])
[2018-03-04] MEDS ORDERED: Sodium Chloride 0.9% 1,000 ML IV SCH (12:00)
[2018-03-04 12:22] LABS: BASO # 0.1 K/uL (0.0-0.2); BASO % 1.2 % (0.0-2.0); EOS % 0.4 % (0.0-4.0); HEMOGLOBIN 12.6 g/dL (12.0-16.0); MEAN CELL VOLUME 95.3 fl (81.0-99.0); MEAN CORPUSCULAR HEMOGLOBIN 31.7 pg (27.0-31.0); MEAN CORPUSCULAR HGB CONC 33.2 g/dL (33.0-37.0); MEAN PLATELET VOLUME 9.8 fl (7.2-11.7); MONO # 0.6 K/uL (0.0-0.8); MONO % 7.3 % (0.0-10.0); NEUT # 6.2 K/uL (1.8-7.0); NEUT % 78.1 % (50.0-75.0); RBC 3.97 Mil/uL (3.80-5.20); RED CELL DISTRIBUTION WIDTH 18.5 % (11.5-14.5); WHITE BLOOD COUNT 7.9 K/uL (4.8-10.8)
[2018-03-04 12:31] LABS: BARBITURATES, UR NEGATIVE (NEGATIVE); BENZODIAZEPINES, UR NEGATIVE (NEGATIVE); OPIATES, UR NEGATIVE (NEGATIVE); PHENCYCLIDINE, UR NEGATIVE (NEGATIVE)
[2018-03-04 12:34] LABS: ALB/GLOB RATIO 1.1 (1.0-2.1); ALBUMIN 3.8 g/dL (3.5-5.0); ALT/SGPT 43 U/L (9-52); AST/SGOT 79 U/L (14-36); BLOOD UREA NITROGEN 11 mg/dl (7-17); GFR NON-AFRICAN AMERICAN 49
[2018-03-04] MEDS ORDERED: Potassium Chloride 20 mEq ER Tab PO ONE ×2 (14:16→14:39)
[2018-03-04] MEDS ORDERED: Potassium CL 10 MEQ/50 ML 50 ML ONE ×2 (14:39→16:08)
[2018-03-04] MEDS: Potassium CL 10 MEQ/50 ML 50 ML IVPB SCH ×2 (14:53→16:15)
--- NOTE | 2018-03-04 17:49 | RAD ---
Date of service: 03/04/2018 HISTORY: shortness of breath, cough COMPARISON: Comparison is made with 02/15/2018 TECHNIQUE: Chest PA and lateral FINDINGS: LUNGS: No evidence of new infiltrate or consolidation in the lungs. PLEURA: No significant pleural effusion identified. No pneumothorax apparent. CARDIOVASCULAR: No aortic atherosclerotic calcification present. Normal cardiac size. No pulmonary vascular congestion. OSSEOUS STRUCTURES: There is subacute or old right 6th rib fracture noted. The lateral view demonstrate again multilevel compression deformity in the thoracic vertebrae. VISUALIZED UPPER ABDOMEN: Normal. OTHER FINDINGS: None. IMPRESSION: No evidence of significant interval changes in the lungs. Diffuse osteopenia/osteoporosis. Right 6 rib old fracture. Multiple compression deformity in the thoracic vertebrae worse at T6 and T7.
[2018-03-04 18:50] LABS: SQUAMOUS EPITHIAL 4 /hpf (0-5); URINE BILIRUBIN NEGATIVE (NEGATIVE); URINE BLOOD SMALL (NEGATIVE); URINE CLARITY CLOUDY (Clear); URINE COLOR AMBER (YELLOW); URINE GLUCOSE (UA) NEG (Normal); URINE LEUKOCYTE ESTERASE LARGE Leu/uL (Negative); URINE PROTEIN 100 mg/dL (NEGATIVE)
[2018-03-04 18:52] LABS: URINE BACTERIA FEW (<OCC)
--- NOTE | 2018-03-04 20:37 | ED PDOC ---
- Laboratory Results Result Diagrams: 03/04/18 12:10 03/04/18 12:10 - ECG O2 Sat by Pulse Oximetry: 96 - Progress ED Course And Treament: 1999 Signed out to me pending [facility] screen. 2034 On re-evaluation, pt. in no distress. Pleasant and calm. Offers no complaint at this time. Reports having dysuria x 2 days. Denies SI/HI, hallucinations, fever, abd pain, flank pain, back pain, hematuria. Abd soft and non-tender. No CVA tenderness b/l. AOx3. Urine C&S, macrobid 100mg PO ordered. 2343 Pt. evaluated by [facility] screener who cleared pt. for discharge. Requesting refill for Paxil 30mg PO daily, trazodone 150mg PO QHS as she does not have appointment with her psychiatrist to refill her meds until 03/12/2018. Disposition - Clinical Impression Clinical Impression: Alcohol dependence, UTI (urinary tract infection) - POA Present On Arrival: None - Disposition Referrals: [facility] [Outside] [facility] [Outside] Disposition: Routine/Home Disposition Time: 23:47 Condition: IMPROVED Additional Instructions: RETURN TO ED IMMEDIATELY IF SYMPTOMS WORSEN KELLEN WADE, thank you for letting us take care of you today. Your provider was Maria Del Carmen Ling MD and you were treated for POSS WITHDRAWAL. The emergency medical care you received today was directed at your acute sy mptoms. If you were prescribed any medication, please fill it and take as directed. It may take several days for your symptoms to resolve. Return to the Emergency Department if your symptoms worsen, do not improve, or if you have any other problems. Please contact your doctor or call one of the physicians/clinics you have been referred to that are listed on the Patient Visit Information form that is included in your discharge packet. Bring any paperwork you were given at discharge with you along with any medications you are taking to your follow up visit. Our treatment cannot replace ongoing medical care by a primary care provider outside of the emergency department. [facility] care today. If you had an X-Ray or CT scan: A Radiologist will review the ED reading if any change in treatment is needed we will contact you. If you had a blood, urine, or wound culture: It will take several days for the results, if any change in treatment is needed we will contact you. If you had an STI test: It will take 48 hours for the results. Please call after 1 week if you have not heard back. Prescriptions: chlordiazePOXIDE [Chlordiazepoxide HCl] 25 mg PO Q6 #8 cap Nitrofurantoin Macrocrystals [Macrobid] 100 mg PO BID #14 cap PARoxetine [Paxil] 30 mg PO DAILY #7 tab RX: Trazodone HCl 150 mg PO HS #7 tablet Instructions: Alcohol Use - When Is Drinking a Problem? Forms: [facility] ([place])
[2018-03-04 23:16] VITALS: BP 136/65; PULSE 71; RESP 16; TEMP 99.1
[2018-03-04 23:46] VITALS: O2SAT 96
--- NOTE | 2018-03-05 17:53 | CARD ---
APPROVED REPORT Date of service: 03/04/2018 EKG Measurement Heart [id number] <Conclusion> Sinus rhythm with premature atrial complexes Nonspecifc ST changes Abnormal ECG
== END 2018-03-05 00:30 | disposition home or self-care (01) ==
LOC: H.ER 10:36
DX: F10.239 Alcohol dependence with withdrawal, unspecified (principal); N39.0 Urinary tract infection, site not specified; I10 Essential (primary) hypertension; F43.10 Post-traumatic stress disorder, unspecified; F31.9 Bipolar disorder, unspecified; F20.9 Schizophrenia, unspecified; E78.00 Pure hypercholesterolemia, unspecified; F03.90 Unspecified dementia, unspecified severity, without behavioral disturbance, psychotic disturbance, mood disturbance, and anxiety; J44.9 Chronic obstructive pulmonary disease, unspecified; I49.1 Atrial premature depolarization; M81.0 Age-related osteoporosis without current pathological fracture; Z85.41 Personal history of malignant neoplasm of cervix uteri
CPT/HCPCS: 71046; 80053; 81003; 85025; 87086; 93005; 96360; 96361; 99285; G0480; J3480; J7030

== ENCOUNTER 2018-07-18 15:57 | Emergency (ER) | payer MEDICAID, MEDICARE, OTHER ==
[2018-07-18 15:57] VITALS: BMI 24.7
[2018-07-18 16:01] VITALS: RESP 18
--- NOTE | 2018-07-18 16:25 | ED PDOC ---
HPI: Back Time Seen by Provider: 07/18/18 16:04 Chief Complaint (Nursing): Back Pain History Per: Patient Onset/Duration Of Symptoms: Days Current Symptoms Are (Timing): Still Present Severity: Moderate Additional Complaint(s): Brought by EMS, tripped and fell backward last night. Hit back of head as well as right scapular area and right mid back. Denies LOC. Denies SOB. Denies hip pain Past Medical History Vital Signs: Last Vital Signs Temp 99.2 F 07/18/18 15:59 Pulse 73 07/18/18 15:59 Resp 18 07/18/18 15:59 BP Pulse Ox 95 07/18/18 15:59 - Medical History PMH: Anxiety, Arthritis, Bipolar Disorder, Bronchitis, Colonic Polyps, COPD, Dementia, Depression, Fractures (right wrist fracture, rib fx), HTN, Hypercholesterolemia, Malignancy (squamous cell carcinoma of mouth/neck (2009)), Osteoporosis, Pneumonia, Post Traumatic Stress Disorder, Schizophrenia Denies: CHF, Diabetes, Hepatitis, HIV, Hypothyroidism, Chronic Kidney Disease, Rheumatoid Arthritis, Seizures, Sexually Transmitted Disease, TIA - Family History Family History: States: Unknown Family Hx - Immunization History Hx Tetanus Toxoid Vaccination: No Hx Influenza Vaccination: Yes Hx Pneumococcal Vaccination: Yes - Home Medications Home Medications: Ambulatory Orders Medication Instructions Recorded amLODIPine [Norvasc] 5 mg PO DAILY 03/20/17 Albuterol HFA [Ventolin HFA 90 2 puff IH Q6 PRN 08/18/17 mcg/actuation (8 g)] Atorvastatin [Lipitor] 20 mg PO HS 01/05/18 Tiotropium [Spiriva] 18 mcg IH DAILY 01/05/18 Losartan [Cozaar] 25 mg PO DAILY 01/07/18 Thiamine [Vitamin B1 Tab] 100 mg PO DAILY 01/07/18 Gabapentin [Neurontin] 300 mg PO TID #90 cap 01/17/18 Memantine [Namenda] 10 mg PO Q12 #60 tab 01/17/18 Multimineral/Multivitamin 1 tab PO DAILY tab 01/17/18 [Therapeutic-M Tab] PARoxetine [Paxil] 30 mg PO DAILY #30 tab 01/17/18 traZODone [Desyrel] 150 mg PO HS #90 tab 01/17/18 Chrom [place] [Garcinia 1 tab PO TID 03/04/18 Cambogia Tablet] Fluticasone/Salmeterol [Advair 1 puff IH Q12 03/04/18 250-50 Diskus] Ibuprofen [Motrin Tab] 200 mg PO Q6 PRN 03/04/18 Linaclotide [Linzess] 145 mcg PO DAILY 03/04/18 Meloxicam [Mobic] 7.5 mg PO DAILY 03/04/18 Nitrofurantoin Macrocrystals 100 mg PO BID #14 cap 03/04/18 [Macrobid] chlordiazePOXIDE [Chlordiazepoxide 25 mg PO Q6 #8 cap 03/04/18 HCl] PARoxetine [Paxil] 30 mg PO DAILY #7 tab 03/05/18 Trazodone HCl 150 mg PO HS #7 tablet 03/05/18 Albuterol HFA [Ventolin HFA 90 2 puff INH RQ6 PRN inhaler 07/07/18 mcg/actuation (8 g)] Famotidine [Pepcid] 20 mg PO BID #60 tab 07/07/18 Fluticasone/Vilanterol 100/25 1 puff INH RQD puff 07/07/18 [Breo Ellipta 100-25 MCG INH] Magnesium Oxide [Mag-Ox] 400 mg PO DAILY #30 tab 07/07/18 Multivitamins [Hexavitamin] 1 tab PO DAILY #30 tab 07/07/18 PARoxetine [Paxil] 20 mg PO QPM #30 tab 07/07/18 Potassium Chloride [K-Dur 20 mEq 20 meq PO DAILY #2 tab 07/07/18 ER Tab] hydrOXYzine HCl [Atarax] 25 mg PO HS PRN #30 tab 07/07/18 traZODone [Desyrel] 50 mg PO HS PRN #30 tab 07/07/18 - Allergies Allergies/Adverse Reactions: Allergies Allergy/AdvReac Type Severity Reaction Status Date / Time No Known Allergies Allergy Verified 07/01/18 17:13 Review of Systems ROS Statement: Except As Marked, All Systems Reviewed And Found Negative Musculoskeletal: Positive for: Back Pain Neurological: Positive for: Headache. Negative for: Weakness, Numbness, Dizziness Physical Exam - Reviewed Nursing Documentation Reviewed: Yes Vital Signs Reviewed: Yes - Physical Exam Appears: Positive for: Non-toxic, No Acute Distress Head Exam: Positive for: ATRAUMATIC, NORMAL INSPECTION, NORMOCEPHALIC Skin: Positive for: Normal Color, Warm, DRY Eye Exam: Positive for: EOMI, Normal appearance, PERRL ENT: Positive for: Normal ENT Inspection Neck: Positive for: Normal, Painless ROM. Negative for: Pain On Movement Of Neck Cardiovascular/Chest: Positive for: Regular Rate, Rhythm Respiratory: Positive for: CNT, Normal Breath Sounds Gastrointestinal/Abdominal: Positive for: Normal Exam, Soft Back: Positive for: Other (Tenderness and swelling right infrascapular area. Tenderness right post mid ribs. No crepitance). Negative for: Vertebral Tenderness Extremity: Positive for: Normal ROM Neurological/Psych: Positive for: Awake, Alert, Normal Tone, Oriented. Negative for: Motor/Sensory Deficits - ECG O2 Sat by Pulse Oximetry: 95 Disposition - Clinical Impression Clinical Impression: Back pain - Patient ED Disposition Is Patient to be Admitted: Transfer of Care - Disposition Disposition: Transfer of Care Disposition Time: 17:00 Condition: FAIR Forms: [employer] (Maltese) Patient Signed Over To: Maria Del Carmen Ling (Pending CT, xray and re-eval)
--- NOTE | 2018-07-18 16:59 | CT ---
Date of service: 07/18/2018 PROCEDURE: CT HEAD WITHOUT CONTRAST. HISTORY: r/o bleed COMPARISON: Unenhanced head CT 02/08/2018. TECHNIQUE: Axial computed tomography images were obtained through the head/brain without intravenous contrast. Radiation dose: Total exam DLP = 788.16 mGy-cm. This CT exam was performed using one or more of the following dose reduction techniques: Automated exposure control, adjustment of the mA and/or kV according to patient size, and/or use of iterative reconstruction technique. FINDINGS: HEMORRHAGE: No intracranial hemorrhage. BRAIN: Good corticomedullary differentiation is seen. Reiterated diffuse cerebral atrophy and chronic microangiopathy. No suspicious extra-axial fluid collection is identified and the midline brain anatomy appears grossly nonfocal as imaged. No mass effect identified. VENTRICLES: Unremarkable. No hydrocephalus. CALVARIUM: Unremarkable. PARANASAL SINUSES: Unremarkable as visualized. No significant inflammatory changes. MASTOID AIR CELLS: Unremarkable as visualized. No inflammatory changes. OTHER FINDINGS: None. IMPRESSION: Stable unenhanced head CT with age related neuro degenerative findings again appreciated without significant interval change. No definite acute intracranial findings.
[2018-07-18] MEDS ORDERED: Lidocaine 5% Patch TD STA (17:16)
--- NOTE | 2018-07-18 17:39 | ED PDOC ---
- ECG O2 Sat by Pulse Oximetry: 95 (RA) Pulse Ox Interpretation: Normal Medical Decision Making Medical Decision Making: Time: 1700 -- Received endorsement from Dr. Bland. Patient presenting to the ED with a head injury and back pain s/p fall, pending imaging results, reassessment and final ER dispositions. PROCEDURE: CT HEAD WITHOUT CONTRAST. HISTORY: r/o bleed COMPARISON: Unenhanced head CT 02/08/2018. TECHNIQUE: Axial computed tomography images were obtained through the head/brain without intravenous contrast. Radiation dose: Total exam DLP = 788.16 mGy-cm. This CT exam was performed using one or more of the following dose reduction t echniques: Automated exposure control, adjustment of the mA and/or kV according to patient size, and/or use of iterative reconstruction technique. FINDINGS: HEMORRHAGE: No intracranial hemorrhage. BRAIN: Good corticomedullary differentiation is seen. Reiterated diffuse cerebral atrophy and chronic microangiopathy. No suspicious extra-axial fluid collection is identified and the midline brain anatomy appears grossly nonfocal as imaged. No mass effect identified. VENTRICLES: Unremarkable. No hydrocephalus. CALVARIUM: Unremarkable. PARANASAL SINUSES: Unremarkable as visualized. No significant inflammatory changes. MASTOID AIR CELLS: Unremarkable as visualized. No inflammatory changes. OTHER FINDINGS: None. IMPRESSION: Stable unenhanced head CT with age related neuro degenerative findings again appreciated without significant interval change. No definite acute intracranial findings. PROCEDURE: Radiographs of the Chest and Right Ribs. HISTORY: trauma COMPARISON: None available. TECHNIQUE: Frontal radiograph of the chest and multiple oblique radiographs of the right ribs were obtained. 4 views obtained. FINDINGS: RIGHT RIBS: No acute fracture or focal lesion visualized. Evidence of old posterior lateral right 9th rib fracture. LUNGS: Clear. PLEURA: No pneumothorax or pleural fluid. CARDIOVASCULAR: Normal cardiac size. No pulmonary vascular congestion. Atherosclerotic calcifications identified primarily aortic arch. OTHER FINDINGS: None. IMPRESSION: No acute, displaced rib fractures. Additional benign and/or incidental findings described above. Concordant results with the preliminary interpretation rendered by the emergency department physicianAMBER at the conclusion of the procedure. PROCEDURE: Right scapula HISTORY: trauma COMPARISON: None TECHNIQUE: Standard protocol for this study/examination. FINDINGS: No significant/acute osseous, articular or soft tissue abnormalities. Incidental finding(s): Old healed posterior lateral right rib fractures. Incompletely visualized degenerative changes right shoulder. IMPRESSION: No acute findings related to/ accounting for the clinical presentation. Concordant results with the preliminary interpretation rendered by the emergency department physician\PA at the conclusion of the procedure. DW pt findings and plan of care. STable for dc. Pt requesting pain medications. Pt will be rx'd nonnarcotics given h/o substance abuse and falls. Addiction resources also provided. Scribe Attestation: Documented by Freedom Mcleod, acting as a scribe Comfort Ling MD. Provider Scribe Attestation: All medical record entries made by the Scribe were at my direction and personally dictated by me. I have reviewed the chart and agree that the record accurately reflects my personal performance of the history, physical exam, medical decision making, and the department course for this patient. I have also personally directed, reviewed, and agree with the discharge instructions and disposition. Disposition - Clinical Impression Clinical Impression: Back contusion, Alcohol use disorder - POA Present On Arrival: Falls Or Trauma - Disposition Disposition: Routine/Home Disposition Time: 18:09 Condition: STABLE Additional Instructions: FOLLOWUP WITH YOUR DOCTOR IN 1-2 DAYS Prescriptions: Lidocaine 5% [Lidoderm] 1 ea TD DAILY PRN #30 patch PRN Reason: PAIN Meloxicam [Mobic] 7.5 mg PO BID PRN #20 tab PRN Reason: PAIN Instructions: Preventing Falls in the Older Adult, Contusion (DC), Alcohol Abuse and Alcoholism (DC)
--- NOTE | 2018-07-18 17:43 | RAD ---
Date of service: 07/18/2018 PROCEDURE: Right scapula HISTORY: trauma COMPARISON: None TECHNIQUE: Standard protocol for this study/examination. FINDINGS: No significant/acute osseous, articular or soft tissue abnormalities. Incidental finding(s): Old healed posterior lateral right rib fractures. Incompletely visualized degenerative changes right shoulder. IMPRESSION: No acute findings related to/ accounting for the clinical presentation. Concordant results with the preliminary interpretation rendered by the emergency department physician procedure.
--- NOTE | 2018-07-18 17:44 | RAD ---
Date of service: 07/18/2018 PROCEDURE: Radiographs of the Chest and Right Ribs. HISTORY: trauma COMPARISON: None available. TECHNIQUE: Frontal radiograph of the chest and multiple oblique radiographs of the right ribs were obtained. 4 views obtained. FINDINGS: RIGHT RIBS: No acute fracture or focal lesion visualized. Evidence of old posterior lateral right 9th rib fracture. LUNGS: Clear. PLEURA: No pneumothorax or pleural fluid. CARDIOVASCULAR: Normal cardiac size. No pulmonary vascular congestion. Atherosclerotic calcifications identified primarily aortic arch. OTHER FINDINGS: None. IMPRESSION: No acute, displaced rib fractures. Additional benign and/or incidental findings described above. Concordant results with the preliminary interpretation rendered by the emergency department physician procedure.
[2018-07-18] MEDS ORDERED: Lidocaine 5% Patch TD ONE (18:31)
[2018-07-18 18:59] VITALS: BP 153/73; PULSE 72; TEMP 98.6
[2018-07-18 19:17] VITALS: O2SAT 95
== END 2018-07-18 18:16 | disposition home or self-care (01) ==
LOC: H.ER 15:57
DX: S09.90XA Unspecified injury of head, initial encounter (principal); M54.6 Pain in thoracic spine; S20.229A Contusion of unspecified back wall of thorax, initial encounter; W01.0XXA Fall on same level from slipping, tripping and stumbling without subsequent striking against object, initial encounter; F10.10 Alcohol abuse, uncomplicated; Y90.3 Blood alcohol level of 60-79 mg/100 ml
CPT/HCPCS: 70450; 71101; 73010; 99284; G0480

== ENCOUNTER 2018-08-22 14:34 | Inpatient (IN) | payer MEDICARE ==
[2018-08-22 14:34] VITALS: BMI 24.7
--- NOTE | 2018-08-22 15:14 | ED PDOC ---
HPI: Altered Mental Status Time Seen by Provider: 08/22/18 15:00 Chief Complaint (Nursing): Altered Mental Status Chief Complaint (Provider): Altered mental status History/Exam Limitations: Clinical Condition Additional History Per: EMS Additional Complaint(s): 73yo female, well known to ER with last visit a month ago for back pain s/p fall, brought to ER by EMS after patient was found in her apartment by maintenance workers, covered in feces. Patient currently complaining of shortness of breath and abdominal pain. Patient unable to provide history due to her clinical condition. Past Medical History Reviewed: Historical Data, Nursing Documentation, Vital Signs Vital Signs: Last Vital Signs Temp 97 F L 08/22/18 14:46 Pulse 87 08/22/18 14:46 Resp 22 08/22/18 14:46 BP 151/75 H 08/22/18 14:46 Pulse Ox 96 08/22/18 14:46 Primary Care Provider: FAMILY PROVIDER,NO - Medical History PMH: Anxiety, Arthritis, Bipolar Disorder, Bronchitis, Colonic Polyps, COPD, Dementia, Depression, Fractures (right wrist fracture, rib fx), HTN, Hype rcholesterolemia, Malignancy (squamous cell carcinoma of mouth/neck (2009)), Osteoporosis, Pneumonia, Post Traumatic Stress Disorder, Schizophrenia Denies: CHF, Diabetes, Hepatitis, HIV, Hypothyroidism, Chronic Kidney Disease, Rheumatoid Arthritis, Seizures, Sexually Transmitted Disease, TIA - Family History Family History: States: Unknown Family Hx - Immunization History Hx Tetanus Toxoid Vaccination: No Hx Influenza Vaccination: Yes Hx Pneumococcal Vaccination: Yes - Home Medications Home Medications: Ambulatory Orders Medication Instructions Recorded amLODIPine [Norvasc] 5 mg PO DAILY 03/20/17 Atorvastatin [Lipitor] 20 mg PO HS 01/05/18 Tiotropium [Spiriva] 18 mcg IH DAILY 01/05/18 Memantine [Namenda] 10 mg PO Q12 #60 tab 01/17/18 Albuterol HFA [Ventolin HFA 90 2 puff INH RQ6 PRN inhaler 07/07/18 mcg/actuation (8 g)] Famotidine [Pepcid] 20 mg PO BID #60 tab 07/07/18 traZODone [Desyrel] 50 mg PO HS PRN #30 tab 07/07/18 Meloxicam [Mobic] 7.5 mg PO BID PRN #20 tab 07/18/18 Gabapentin [Neurontin] 300 mg PO Q12 08/22/18 PARoxetine [Paxil] 20 mg PO DAILY 08/22/18 - Allergies Allergies/Adverse Reactions: Allergies Allergy/AdvReac Type Severity Reaction Status Date / Time No Known Allergies Allergy Verified 08/22/18 14:40 Review of Systems Review Of Systems: ROS cannot be obtained secondary to pt's inabilty to answer questions. Respiratory: Positive for: Shortness of Breath Gastrointestinal: Positive for: Abdominal Pain Physical Exam - Reviewed Nursing Documentation Reviewed: Yes Vital Signs Reviewed: Yes - Physical Exam Appears: Negative for: Well Eye Exam: Positive for: Other (bilateral subconjunctival hemorrhage) Cardiovascular/Chest: Positive for: Other (large area of eccymosis noted to left posterior chest) Gastrointestinal/Abdominal: Positive for: Other (feces noted in underwear) Extremity: Positive for: Other (feces noted all over hands) Neurological/Psych: Positive for: Alert, Oriented (to place) - Laboratory Results Result Diagrams: 08/22/18 16:24 08/22/18 16:24 - ECG O2 Sat by Pulse Oximetry: 96 (RA) Pulse Ox Interpretation: Normal - Core Measure Core Measure Indicators: Code Sepsis - Critical Care Total Time (In Min): 120 Documented Critical Care: Time excludes all time spent performint seperately billable procedures Medical Decision Making Medical Decision Makinyo female complaining of shortness of breath, abdominal pain Plan: -- Labs -- Urinalysis -- CT Head -- CT Abdomen/Pelvis -- EKG 1540 Rectal temp is 85 Patient placed under ludy hugger 1555 Patient is restless, noted to be tachypneic and blood pressure systolic in 90's Portable CXR ordered 1600 Patient intubated for airway protection, patient placed on propofol drip 1603 VBG lactate is 5.8 1630 Difficulty establishing peripheral IV access Central line placed in right femoral region. 1646 Patient meets sepsis criteria, code sepsis called. Order placed for 2nd VBG to be done at 1900 Patient to be admitted 1648 BUN markedly elevated, CT to be done without contrast 1650 Patient given 2 additional liters of fluids, 1 amp Bicarb as pH is 7.[address] Mckeon, motorized squad captain hyperion essbase developer, who accepts patient for ICU [address] Solis due to sepsis, alcohol withdrawal, acute renal failure and respiratory failure IV Cefepime and Vancomycin started. 1711 Discussed with surgical garment inspector, who will place michelle [address] Hernandez for nephrology consult CT chest/abd/pelvis: Pending. Scribe Attestation: Documented by Mattie Goncalves acting as a scribe for Greer Nunn MD. Provider Scribe Attestation: All medical record entries made by the Scribe were at my direction and person ally dictated by me. I have reviewed the chart and agree that the record accurately reflects my personal performance of the history, physical exam, medical decision making, and the department course for this patient. I have also personally directed, reviewed, and agree with the discharge instructions and disposition. Procedures - Time-Out Type of Procedure: Intubation Correct Patient: Yes Correct Procedure: Yes - Intubation Time of Intubation: 16:00 Intubation Method: orotracheal Tube Size (cm): 7.5 Breath Sounds after Intubation: equal Intubation Complications: no complications Post Intubation Xray: Yes (normal) Disposition - Clinical Impression Clinical Impression: Acute renal failure, Sepsis, Respiratory failure, Alcohol withdrawal, Altered mental status - Disposition Disposition Time: 17:00 Condition: CRITICAL - Pt Status Changed To: Hospital Disposition Of: Inpatient - Admit Certification Admit to Inpatient:: After my assessment, the patient will require hospitalization for at least two midnights. This is because of the severity of symptoms shown, intensity of services needed, and/or the medical risk in this patient being treated as an outpatient. - POA Present On Arrival: None Central Line Placement - Central Line Placement Indication: Unable To Obtain Adequate Peripheral Access Central Line Placement: Right: Femoral The Area Was Thoroughly Prepared With: Betadine, Chlorhexidine, Draped Using Sterile Technique Procedure: Triple Lumen, Sterile Dressing Placed Over Line
[2018-08-22] MEDS ORDERED: Albuterol-Ipratrop 3 mg / 0.5 (3 ml) UD ONE (15:58)
[2018-08-22] MEDS ORDERED: Etomidate 20 mg/10ml Inj IV ONE (16:02)
[2018-08-22] MEDS ORDERED: Succinylcholine 200 mg/10 ml Inj IV ONE (16:02)
[2018-08-22 16:03] LABS: VENOUS BLOOD GAS BASE EXCESS -16.8 mmol/L (0.0-2.0); VENOUS BLOOD GAS PCO2 36 mmHg (40-60); VENOUS BLOOD GAS PO2 23 mm/Hg (30-55); VENOUS BLOOD PH 7.12 (7.32-7.43)
[2018-08-22] MEDS ORDERED: Propofol 10 mg/ml 1,000 MG/100 ML VIAL ONE (16:07)
[2018-08-22] MEDS ORDERED: Propofol 10 mg/ml Inj (20 ML) ONE (16:07)
--- NOTE | 2018-08-22 16:13 | RAD ---
Date of service: 2018-08-22 15:41:28 HISTORY: AMS COMPARISON: 03/04/2018 TECHNIQUE: 1 view obtained. FINDINGS: LUNGS: Mild subsegmental atelectasis and volume loss are seen at the lung bases. No appreciable focal infiltrate is noted. Minimal platelike atelectasis in the left midlung field is not excluded. Prior healed right rib fractures are noted. PLEURA: No significant pleural effusion identified, no pneumothorax apparent. CARDIOVASCULAR: Mild atherosclerotic change of the aorta. Unchanged cardiac size. Pulmonary vasculature is not significantly congested. OSSEOUS STRUCTURES: No acute fractures. VISUALIZED UPPER ABDOMEN: Mild ileus in the upper abdominal region is not excluded. OTHER FINDINGS: None. IMPRESSION: Mild volume loss and subsegmental atelectasis at the lung bases. No appreciable focal alveolar infiltrate.
[2018-08-22 16:36] LABS: BASO % 0.1 % (0.0-2.0); HEMOGLOBIN 14.5 g/dL (12.0-16.0); LYMPH # 0.3 K/uL (1.0-4.3); LYMPH % 3.3 % (20.0-40.0); MEAN CELL VOLUME 107.1 fl (81.0-99.0); MEAN CORPUSCULAR HEMOGLOBIN 34.6 pg (27.0-31.0); MEAN CORPUSCULAR HGB CONC 32.3 g/dL (33.0-37.0); MEAN PLATELET VOLUME 10.9 fl (7.2-11.7); MONO # 1.4 K/uL (0.0-0.8); MONO % 12.7 % (0.0-10.0); NEUT % 83.9 % (50.0-75.0); PLATELET COUNT 180 K/uL (130-400); RBC 4.19 Mil/uL (3.80-5.20); RED CELL DISTRIBUTION WIDTH 18.2 % (11.5-14.5); WHITE BLOOD COUNT 10.7 K/uL (4.8-10.8)
[2018-08-22 16:44] LABS: ALB/GLOB RATIO 1.2 (1.0-2.1); ALBUMIN 4.8 g/dL (3.5-5.0); ALT/SGPT 44 U/L (9-52); AST/SGOT 91 U/L (14-36); CALCIUM 7.8 mg/dL (8.4-10.2); LIPASE 209 U/L (23-300); PROTHROMBIN TIME 11.3 Seconds (9.8-13.1)
[2018-08-22 16:46] LABS: PARTIAL THROMBOPLASTIN TIME 30.6 Seconds (25.6-37.1)
[2018-08-22 16:47] LABS: GFR NON-AFRICAN AMERICAN 8
[2018-08-22 16:49] LABS: BLOOD UREA NITROGEN 211 mg/dl (7-17)
[2018-08-22] MEDS ORDERED: Sodium Bicarbonate (8.4%) 50 Meq Syringe IVP STA (16:50)
[2018-08-22] MEDS ORDERED: Sodium Chloride 0.9% 1,000 ML IV STA ×3 (16:55→17:05)
[2018-08-22] MEDS ORDERED: Cefepime (Maxipime) 1 g Inj IVPB STA (17:03)
[2018-08-22] MEDS ORDERED: Etomidate 20 mg/10ml Inj IV STA (17:06)
[2018-08-22] MEDS ORDERED: Propofol 10 mg/ml Inj (20 ML) IV STA ×2 (17:06→17:17)
[2018-08-22 17:09] LABS: ABG ALLEN TEST YES; ARTERIAL BLOOD GAS HCO3 17.9 mmol/L (21-28); ARTERIAL BLOOD GAS O2 SAT 100.2 % (95-98); ARTERIAL BLOOD GAS PCO2 26 mm/Hg (35-45); ARTERIAL BLOOD GAS PH 7.36 (7.35-7.45); ARTERIAL BLOOD GAS PO2 466 mm/Hg (80-100); ARTERIAL BLOOD GAS TCO2 15.5 mmol/L (22-28)
[2018-08-22] MEDS ORDERED: Vancomycin 1 g Inj ONE (17:15)
[2018-08-22] MEDS ORDERED: Propofol 10 mg/ml 1,000 MG/100 ML VIAL IV SCH (17:30)
[2018-08-22] MEDS ORDERED: Propofol 10 mg/ml Inj (20 ML) IV ONE (17:30)
[2018-08-22 17:44] LABS: LARGE PLATELETS PRESENT; LYMPHOCYTE 2 % (20-50); METAMYELOCYTE 1 % (0-0); MONOCYTE 16 % (0-10); NEUTROPHIL 46 % (42-75); PLATELET ESTIMATE NORMAL (NORMAL); TOTAL CELLS COUNTED 100
[2018-08-22 17:45] LABS: ANISOCYTOSIS SLIGHT; BANDS 35 % (0-2)
[2018-08-22] MEDS ORDERED: Midazolam 50 mg/10 ml 50 MG in Dextrose 5% In Water 90 ML IV ONE (18:00)
[2018-08-22] MEDS ORDERED: Fentanyl Citrate 2,500 MCG in Dextrose 5% In Water 200 ML IV SCH (18:00)
[2018-08-22] MEDS ORDERED: Dexmedetomidine Hydrochloride 400 MCG in Sodium Chloride 0.9% 96 ML IV ONE (18:07)
[2018-08-22] MEDS ORDERED: Sodium Bicarbonate (8.4%) 50 Meq Syringe IVP ONE (18:21)
--- NOTE | 2018-08-22 18:23 | CP.PCM.CON ---
History of Present Illness - History of Present Illness History of Present Illness: 73yo F. PMHx ETOH abuse, HTN, HLD, COPD, oropharyngeal cancer s/p resection 2002, Hysterectomy, anxiety, bipolar disorder, colonic polyps, squamous cell CA mouth/neck (2009), osteoporosis, PTSD, Schizophrenia. Patient was found down at home by maintenance workers today covered in feces, EMS called and brought to ED. Then had feeling she was going to , ER intubated for airway protection. Found to be in [facility], needing urgent dialysis. Code sepsis called, source unknown. Review of Systems - Review of Systems Systems not reviewed;Unavailable: Intubated Past Patient History - Infectious Disease Hx of Infectious Diseases: None - Tetanus Immunizations Tetanus Immunization: Unknown - Past Medical History & Family History Past Medical History?: Yes - Past Social History Smoking Status: Former Smoker - CARDIAC Hx Congestive Heart Failure: No Hx Hypercholesterolemia: Yes Hx Hypertension: Yes - PULMONARY Hx Bronchitis: Yes Hx Chronic Obstructive Pulmonary Disease (COPD): Yes Hx Pneumonia: Yes - NEUROLOGICAL Hx Dementia: Yes Hx Seizures: No Hx Transient Ischemic Attacks (TIA): No - HEENT Hx HEENT Problems: Yes Hx Cataracts: Yes - RENAL Hx Chronic Kidney Disease: No - ENDOCRINE/METABOLIC Hx Hypothyroidism: No - HEMATOLOGICAL/ONCOLOGICAL Hx Human Immunodeficiency Virus (HIV): No - INTEGUMENTARY Hx Squamous Cell: Yes (No Chemo treatment; surgery 10 yrs ago at [place]) - MUSCULOSKELETAL/RHEUMATOLOGICAL Hx Arthritis: Yes Hx Fractures: Yes (right wrist fracture, rib fx) Hx Osteoporosis: Yes Hx Rheumatoid Arthritis: No - GASTROINTESTINAL Hx Gastrointestinal Disorders: No - GENITOURINARY/GYNECOLOGICAL Hx Sexually Transmitted Disorders: No - PSYCHIATRIC Hx Anxiety: Yes Hx Bipolar Disorder: Yes Hx Depression: Yes Hx Post Traumatic Stress Disorder: Yes Hx Schizophrenia: Yes - SURGICAL HISTORY Hx Surgeries: Yes Hx Hysterectomy: Yes (Partial) Other/Comment: mouth and neck CA SX - ANESTHESIA Hx Anesthesia: Yes Hx Anesthesia Reactions: No Hx Malignant Hyperthermia: No Meds Allergies/Adverse Reactions: Allergies Allergy/AdvReac Type Severity Reaction Status Date / Time No Known Allergies Allergy Verified 08/22/18 14:40 - Medications Medications: Current Medications Vancomycin HCl 1 gm/ Sodium (Chloride) 250 mls @ 166.667 mls/hr IVPB STAT STA; Protocol Stop: 08/22/18 18:34 Last Admin: 05/20/19 17:14 Dose: 166.667 mls/hr Propofol (Diprivan) 1,000 mg in 100 mls @ 0.816 mls/hr IV .Q24H BHUPENDRA; Protocol Stop: 08/23/18 17:16 Last Titration: 08/22/18 17:17 Dose: 15 mcg/kg/min, 4.899 mls/hr Midazolam HCl 50 mg/ Dextrose 100 mls @ 4 mls/hr IV .Q24H ONE; Protocol Stop: 08/23/18 17:59 Dexmedetomidine HCl 400 mcg/ (Sodium Chloride) 100 mls @ 2.72 mls/hr IV .Q24H ONE; Protocol Stop: 08/23/18 18:06 Physical Exam - Head Exam Head Exam: ATRAUMATIC, NORMAL INSPECTION, NORMOCEPHALIC - Eye Exam Eye Exam: EOMI, Normal appearance, PERRL - ENT Exam ENT Exam: Mucous Membranes Dry - Respiratory Exam Respiratory Exam: Clear to Auscultation Bilateral, NORMAL BREATHING PATTERN - Cardiovascular Exam Cardiovascular Exam: REGULAR RHYTHM - GI/Abdominal Exam GI & Abdominal Exam: Normal Bowel Sounds, Soft. absent: Tenderness - Psychiatric Exam Additional comments: sedated Results - Vital Signs Recent Vital Signs: Last Vital Signs Temp 97 F L 08/22/18 14:46 Pulse 86 08/22/18 17:55 Resp 16 08/22/18 17:55 BP 106/64 08/22/18 17:55 Pulse Ox 100 08/22/18 17:55 - Labs Result Diagrams: 08/22/18 16:24 08/22/18 16:24 Labs: Laboratory Results - last 24 hr 08/22/18 08/22/18 08/22/18 15:50 16:00 16:16 WBC RBC Hgb Hct MCV MCH MCHC RDW Plt Count MPV Neut % (Auto) Lymph % (Auto) [place] % (Auto) Eos % (Auto) Baso % (Auto) Neut # (Auto) Lymph # (Auto) [place] # (Auto) Eos # (Auto) Baso # (Auto) Neutrophils % (Manual) Band Neutrophils % Lymphocytes % (Manual) Monocytes % (Manual) Metamyelocytes % Platelet Estimate Large Platelets Anisocytosis (manual) Macrocytosis (manual) PT INR APTT pCO2 26 L pO2 23 L 466 H HCO3 17.9 L ABG pH 7.36 ABG Total CO2 15.5 L ABG O2 Saturation 100.2 H ABG Base Excess -9.1 L Genaro Test Yes ABG Potassium 3.8 VBG pH 7.12 L* VBG pCO2 36 L VBG HCO3 9.8 VBG Total CO2 12.8 L VBG O2 Sat (Calc) 30.5 L VBG Base Excess -16.8 L VBG Potassium 5.0 A-a O2 Difference 215.0 Sodium 157.0 H 160.0 H* Chloride 115.0 H Glucose 248 H 189 H Lactate 5.8 H* 3.0 H FiO2 21.0 100.0 Crit Value Called To Oj santiago Crit Value Called By Crit Value Read Back Y Y Blood Gas Notified Time 1600 1705 Potassium Carbon Dioxide Anion Gap BUN Creatinine Est GFR ( Amer) Est GFR (Non-Af Amer) Random Glucose Calcium Total Bilirubin AST ALT Alkaline Phosphatase Ammonia 33 Troponin I Total Protein Albumin Globulin Albumin/Globulin Ratio Lipase Arterial Blood Potassium 3.8 Venous Blood Potassium 5.0 Alcohol, Quantitative 08/22/18 08/22/18 08/22/18 16:24 16:24 16:24 WBC 10.7 RBC 4.19 Hgb 14.5 Hct 44.9 MCV 107.1 H D MCH 34.6 H MCHC 32.3 L RDW 18.2 H Plt Count 180 MPV 10.9 Neut % (Auto) 83.9 H Lymph % (Auto) 3.3 L [place] % (Auto) 12.7 H Eos % (Auto) 0.0 Baso % (Auto) 0.1 Neut # (Auto) 9.0 H Lymph # (Auto) 0.3 L [place] # (Auto) 1.4 H Eos # (Auto) 0.0 Baso # (Auto) 0.0 Neutrophils % (Manual) 46 Band Neutrophils % 35 H* Lymphocytes % (Manual) 2 L Monocytes % (Manual) 16 H Metamyelocytes % 1 H Platelet Estimate Normal Large Platelets Present Anisocytosis (manual) Slight Macrocytosis (manual) Slight PT 11.3 INR 1.0 APTT 30.6 pCO2 pO2 HCO3 ABG pH ABG Total CO2 ABG O2 Saturation ABG Base Excess [place] Test ABG Potassium VBG pH VBG pCO2 VBG HCO3 VBG Total CO2 VBG O2 Sat (Calc) VBG Base Excess VBG Potassium A-a O2 Difference Sodium 158 H Chloride 117 H Glucose Lactate FiO2 Crit Value Called To Crit Value Called By Crit Value Read Back Blood Gas Notified Time Potassium 4.9 Carbon Dioxide 9 L* D Anion Gap 37 H BUN 211 H* D Creatinine 5.0 H Est GFR ( Amer) 10 Est GFR (Non-Af Amer) 8 Random Glucose 250 H Calcium 7.8 L Total Bilirubin 2.6 H AST 91 H D ALT 44 Alkaline Phosphatase 226 H D Ammonia Troponin I 0.0570 Total Protein 8.9 H Albumin 4.8 Globulin 4.1 H Albumin/Globulin Ratio 1.2 Lipase 209 Arterial Blood Potassium Venous Blood Potassium Alcohol, Quantitative < 10 Assessment & Plan (1) Acute renal failure Assessment and Plan: 73yo F. PMHx ETOH abuse, HTN, HLD, COPD, oropharyngeal cancer s/p resection 2002, Hysterectomy, anxiety, bipolar disorder, colonic polyps, squamous cell CA mouth/neck (2009), osteoporosis, PTSD, Schizophrenia. Patient was found down at home, intubated in ED (08/22). Found to be in [facility], needing urgent dialysis. Neuro: sedated with propofol gtt. AMS, metabolic encephalopathy from uremia. Pulm: acute respiratory failure, intubated on PRVC CV: hemodynamically stable Hem: bandemia possible stress reaction. Renal: acute kidney injury with metabolic lactic acidosis and hypernatremia, possible severe dehydration. Drug screen pending, anuric. Patient to get emergent dialysis. 1/2NS+75 meq SB@200 Endo: no acute issues GI: NPO ID: Elevated lactate with bandemia, possible sepsis, but source unknown. Empiric broad spectrum coverage, Vanco x 1 and Zosyn. D/c abx if no source found. DVT proph - heparin sq GI proph - protonix wynne for strict I/O's during acute illness Code status - full code (08/22) TLC placed in ED (08/22) Abraham placed by Surgery Critical Care time spent 35 minutes Multi-disciplinary rounds were performed with house staff, nursing, speech therapy, respiratory therapy, pharmacy and nutrition with integrated input from the primary team/attending and other consulting services. The documented time is cumulative and includes review of patient data/exams/labs/chart review and examination of the patient on rounds and throughout the day; time is exclusive of any procedures or teaching time. Status: Acute
--- NOTE | 2018-08-22 18:56 | PCM.PROC ---
Procedures Attestation:: I certify that I have explained the specified Operation(s) or Procedure(s), risks, benefits and reasonable alternatives to the Patient and/or other person responsible. The opportunity was given to ask questions and all questions answered - Central Line Placement Right Internal Jugular Hemodialysis Access Aseptic technique was employed throughout the procedure: Hand Hygiene done prior to procedure, Full sterile barriers (mask, hair cover, sterile gown, sterile gl oves), Full body sterile drape, Chloraprep Antiseptic: 30 second prep for IJ or SC sites Pt. Placed on Pulse Ox Monitor: Yes Central Line Prep: Chlorhexidine-Alcohol Combination Local Anesthesia Used: Lidocaine 1% Amount of Anesthesia Used (mls): 5 Ultrasound Used for Placement: Yes Central Line Lumen Inserted: double Central Line Length: 20 cm Post Procedure: Sutured in Place, Good Blood Return, All Ports Aspirated, Flushed, Capped, Sterile Dressing Applied Secured by: Suture Post procedure dressing: Gauze, Clear vapor permeable Post Procedure X-Ray: Yes Patient Tolerated Procedure: Well, No Complications Immediate Complications: None Additional Comments: 73 year old female came by ambulance unconcious, unstable - immediate labs were drawn. Patient in need of immediate dialysis for which dialysis catheter was placed. Emergency consent was obtained via ER physician as per protocol. Patient intubated and sedated during the procedure. Patient tolerated procedure. No complications. EBL 5cc.
--- NOTE | 2018-08-22 19:10 | RAD ---
HISTORY: intubation COMPARISON: Chest x-ray performed 08/22/18 at 1544 hr TECHNIQUE: Chest, one view. FINDINGS: Endotracheal tube terminates approximately 3 cm above the jac. LUNGS: No focal consolidation. Please note that chest x-ray has limited sensitivity for the detection of pulmonary masses. PLEURA: No significant pleural effusion identified. No definite pneumothorax . CARDIOVASCULAR: Heart size appears top normal. Atherosclerotic calcifications of the aorta. OSSEOUS STRUCTURES: Osseous demineralization. Degenerative changes. VISUALIZED UPPER ABDOMEN: Elevation/eventration of the right hemidiaphragm. OTHER FINDINGS: None. IMPRESSION: Endotracheal tube terminates approximately 3 cm above the jac.
[2018-08-22 20:23] LABS: VENOUS BLOOD GAS BASE EXCESS -4.6 mmol/L (0.0-2.0); VENOUS BLOOD GAS PCO2 32 mmHg (40-60); VENOUS BLOOD GAS PO2 34 mm/Hg (30-55); VENOUS BLOOD PH 7.39 (7.32-7.43)
[2018-08-23 05:39] LABS: ABG ALLEN TEST YES; ARTERIAL BLOOD GAS HCO3 20.4 mmol/L (21-28); ARTERIAL BLOOD GAS HEMOGLOBIN 10.8 g/dL (11.7-17.4); ARTERIAL BLOOD GAS O2 CAPACITY 15.3 mL/dL (16-24); ARTERIAL BLOOD GAS O2 CONTENT 15.3 ML/dL (15-23); ARTERIAL BLOOD GAS O2 SAT 99.7 % (95-98); ARTERIAL BLOOD GAS PCO2 26 mm/Hg (35-45); ARTERIAL BLOOD GAS PH 7.43 (7.35-7.45); ARTERIAL BLOOD GAS PO2 213 mm/Hg (80-100); ARTERIAL BLOOD GAS TCO2 18.1 mmol/L (22-28)
[2018-08-23 05:49] LABS: LYMPH # 0.4 K/uL (1.0-4.3)
[2018-08-23 05:55] LABS: BASO % 0.1 % (0.0-2.0); EOS % 0.2 % (0.0-4.0); MEAN CORPUSCULAR HEMOGLOBIN 35.2 pg (27.0-31.0); MEAN CORPUSCULAR HGB CONC 34.1 g/dL (33.0-37.0); MEAN PLATELET VOLUME 10.7 fl (7.2-11.7); MONO # 0.6 K/uL (0.0-0.8); MONO % 10.8 % (0.0-10.0); NEUT # 4.9 K/uL (1.8-7.0); NEUT % 83.9 % (50.0-75.0); RBC 3.07 Mil/uL (3.80-5.20); RED CELL DISTRIBUTION WIDTH 18.2 % (11.5-14.5); WHITE BLOOD COUNT 5.8 K/uL (4.8-10.8)
[2018-08-23 06:02] LABS: MEAN CELL VOLUME 103.2 fl (81.0-99.0)
[2018-08-23 06:03] LABS: HEMOGLOBIN 10.8 g/dL (12.0-16.0); PLATELET COUNT 112 K/uL (130-400)
[2018-08-23 06:04] LABS: NRBC % 2.8 % (0.0-0.0)
[2018-08-23 06:15] LABS: ALB/GLOB RATIO 1.1 (1.0-2.1); ALBUMIN 3.1 g/dL (3.5-5.0); CALCIUM 5.5 mg/dL (8.4-10.2)
--- NOTE | 2018-08-23 07:39 | CP.CCUPN ---
CCU Subjective - Physician Review Subjective (Free Text): 08/23/18 16:58 The patient was Seen and examined by me at the bedside, Medical records reviewed and Management issues were discussed and formulated with the house staff. 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 , osteoporosis, arthritis, and anxiety, colonic polyp, dementia, bipolar disorder, schizophrenia and posttraumatic stress disorder Who was brought in to the emergency room yesterday, she was found on the floor in her apartment by a meter maintenance person covered in feces In the emergency room she was awake, restless, complaining of shortness of breath and abdominal pain Patient noted to be in respiratory distress, tachypneic, hemodynamically unstable with systolic blood pressure in the 90s, and she was urgently intubated in the emergency room for airway protection In the ER central line was placed in the femoral vein Labs was significant for severe metabolic acidosis with bicarb of 9, elevated lactic acid, acute kidney injury with BUN/creatinine of 211/5, severe hypernatremia with sodium of 158, chloride of 117 and leukocytosis with markedly elevated bandemia Patient met the criteria for severe sepsis, blood culture was sent and she was initiated on broad-spectrum antibiotic coverage with IV cefepime and vancomycin Renal consulted and hemodialysis access was placed On my assessment this morning patient is unresponsive to painful stimuli, not localizing for sternal rub, no corneal reflex, all sedation was discontinued Remains hemodynamically unstable on Levophed drip with borderline blood pressure Patient underwent emergent hemodialysis early this morning, two-physician consent obtained since at that time family member could not be reached Eventually social media assistant was able to find the correct phone number I personally called the daughter and discussed with her extensively the patient diagnosis, critical condition, treatment plans and alternative CCU Objective - Vital Signs / Intake & Output Vital Signs (Last 4 hours): Vital Signs Temp Pulse Resp BP Pulse Ox 08/23/18 07:33 99.9 F H 101 H 19 113/45 L 96 08/23/18 07:00 99 H 26 H 113/45 L 99 08/23/18 06:00 100.6 F H 103 H 25 H 101/56 L 100 08/23/18 05:00 100.4 F H 103 H 23 92/53 L 100 08/23/18 04:00 100.2 F H 100 H 27 H 91/45 L 100 Intake and Output (Last 8hrs): Intake & Output 08/22/18 08/23/18 08/23/18 22:59 06:59 14:59 Intake Total 817.8 1575.4 Output Total 100 Balance 817.8 1575.4 -100 Weight 125 lb Intake: IV 817.8 1475.4 Intake, Piggyback 100 Output: Urine 100 Urethral (Segal) 100 - Physical Exam Physical Exam Limitations: Positive for: Altered Mental Status, Clinical Condition Head: Positive for: Atraumatic, Normocephalic Pupils: Positive for: Other (no corneal reflex, no doll's eyes). Negative for: PERRL, Sluggish Extroacular Muscles: Positive for: EOMI Conjunctiva: Positive for: Normal. Negative for: Injected, Icteric Neck: Positive for: Normal Range of Motion, Trachea Midline. Negative for: Meningeal Signs, MIDLINE TENDERNESS, Paraspinal Tenderness, JVD, Lymphadenopathy, Bruit, Other Respiratory/Chest: Positive for: Decreased Breath Sounds, Rhonchi. Negative for: Respiratory Distress, Accessory Muscle Use Cardiovascular: Positive for: Regular Rate and Rhythm, Normal S1, S2, Peripheal Pulses Present. Negative for: Murmurs, Irregular Rhythm Abdomen: Positive for: Normal Bowel Sounds. Negative for: Distention Neurological: Negative for: GCS=15, CN II-XII Intact, Speech Normal Psychiatric: Negative for: Alert, Oriented x 3 (Patient is unresponsive to painful stimuli, no corneal reflex, no doll's eyes) - Medications Active Medications: Active Medications Generic Name Dose Route Start Last Admin Trade Name Freq PRN Reason Stop Dose Admin Acetaminophen 650 mg 08/22/18 23:49 08/23/18 00:04 Tylenol 650 Mg Supp RI 650 mg Q6 PRN Administration Fever >100.4 F Propofol 1,000 mg in 100 mls @ 0.816 mls/hr 08/22/18 17:30 08/22/18 17:17 Diprivan IV 08/23/18 17:16 15 mcg/kg/min .Q24H BHUPENDRA 4.899 mls/hr Titration Protocol 2.5 MCG/KG/MIN Midazolam HCl 50 mg/ Dextrose 100 mls @ 4 mls/hr 08/22/18 18:00 08/22/18 21:57 IV 08/23/18 17:59 2 mg/hr .Q24H ONE 4 mls/hr Titration Protocol 2 MG/HR Dexmedetomidine HCl 400 mcg/ 100 mls @ 2.72 mls/hr 08/22/18 18:07 08/23/18 01:44 Sodium Chloride IV 08/23/18 18:06 0.2 mcg/kg/hr .Q24H ONE 2.72 mls/hr Titration Protocol 0.2 MCG/KG/HR Piperacillin Sod/Tazobactam 100 mls @ 100 mls/hr 08/23/18 01:00 08/23/18 00:00 Sod 2.25 gm/ Sodium Chloride IVPB 100 mls/hr Q8 BHUPENDRA Administration Protocol Norepinephrine Bitartrate 8 mg 258 mls @ 4.84 mls/hr 08/22/18 22:11 08/23/18 04:56 / Dextrose IV 08/23/18 22:10 7.5 mcg/min .Q24H ONE 14.51 mls/hr Titration Protocol 2.5 MCG/MIN Sodium Bicarbonate 75 meq/ 1,075 mls @ 100 mls/hr 08/22/18 22:14 08/22/18 22:44 Sodium Chloride IV 08/23/18 18:32 100 mls/hr .[id number] BHUPENDRA Administration Dextrose 1,000 mls @ 100 mls/hr 08/22/18 22:30 08/22/18 22:44 Dextrose 5% In Water 1000 Ml IV 08/23/18 22:18 100 mls/hr .Q10H BHUPENDRA Administration - Patient Studies Lab Studies: Lab Studies 08/23/18 08/23/18 08/23/18 Range/Units 05:31 04:40 04:40 WBC 5.8 (4.8-10.8) K/uL RBC 3.07 L (3.80-5.20) Mil/uL Hgb 10.8 L D (12.0-16.0) g/dL Hct 31.7 L (34.0-47.0) % MCV 103.2 H D (81.0-99.0) fl MCH 35.2 H (27.0-31.0) pg MCHC 34.1 (33.0-37.0) g/dL RDW 18.2 H (11.5-14.5) % Plt Count (130-400) K/uL MPV 10.7 (7.2-11.7) fl Neut % (Auto) 83.9 H (50.0-75.0) % Lymph % (Auto) 5.0 L (20.0-40.0) % [place] % (Auto) 10.8 H (0.0-10.0) % Eos % (Auto) 0.2 (0.0-4.0) % Baso % (Auto) 0.1 (0.0-2.0) % Neut # (Auto) 4.9 (1.8-7.0) K/uL Lymph # (Auto) 0.4 L (1.0-4.3) K/uL [place] # (Auto) 0.6 (0.0-0.8) K/uL Eos # (Auto) 0.0 (0.0-0.7) K/uL Baso # (Auto) 0.0 (0.0-0.2) K/uL Neutrophils % (Manual) (42-75) % Band Neutrophils % (0-2) % Lymphocytes % (Manual) (20-50) % Monocytes % (Manual) (0-10) % Metamyelocytes % (0-0) % Platelet Estimate (NORMAL) Large Platelets Anisocytosis (manual) Macrocytosis (manual) PT (9.8-13.1) Seconds INR APTT (25.6-37.1) Seconds pCO2 26 L (35-45) mm/Hg pO2 213 H (30-55) mm/Hg HCO3 20.4 L (21-28) mmol/L ABG pH 7.43 (7.35-7.45) ABG Total CO2 18.1 L (22-28) mmol/L ABG O2 Saturation 99.7 H (95-98) % ABG O2 Content 15.3 (15-23) ML/dL ABG Base Excess -5.8 L (-2.0-3.0) mmol/L ABG Hemoglobin 10.8 L (11.7-17.4) g/dL ABG Carboxyhemoglobin 1.0 (0.5-1.5) % POC ABG HHb (Measured) 0.3 (0.0-5.0) % ABG Methemoglobin 1.5 (0.0-3.0) % ABG O2 Capacity 15.3 L (16-24) mL/dL Genaro Test Yes ABG Potassium (3.6-5.2) mmol/L VBG pH (7.32-7.43) VBG pCO2 (40-60) mmHg VBG HCO3 mmol/L VBG Total CO2 (22-28) mmol/L VBG O2 Sat (Calc) (40-65) % VBG Base Excess (0.0-2.0) mmol/L VBG Potassium (3.6-5.2) mmol/L A-a O2 Difference 468.0 mm/Hg Hgb O2 Saturation 97.2 (95.0-98.0) % Sodium 155 H (132-148) mmol/L Chloride 116 H (98-107) mmol/L Glucose (65-105) mg/dL Lactate (0.7-2.1) mmol/L Vent Mode A/c Mechanical Rate 12 FiO2 100.0 % Tidal Volume 450 PEEP 5 Crit Value Called To Crit Value Called By Crit Value Read Back Blood Gas Notified Time Potassium 3.1 L (3.6-5.0) MMOL/L Carbon Dioxide 18 L (22-30) mmol/L Anion Gap 24 H (10-20) BUN 191 H* (7-17) mg/dl Creatinine 4.6 H (0.7-1.2) mg/dl Est GFR ( Amer) 11 Est GFR (Non-Af Amer) 9 POC Glucose (mg/dL) (65-110) mg/dL Random Glucose 243 H (65-105) mg/dL Calcium 5.5 L* D (8.4-10.2) mg/dL Phosphorus 7.0 H (2.5-4.5) mg/dl Magnesium 1.9 (1.6-2.3) MG/DL Total Bilirubin 1.5 H (0.2-1.3) mg/dl AST 64 H D (14-36) U/L ALT 40 (9-52) U/L Alkaline Phosphatase 176 H D (38-126) U/L Ammonia (9-33) umol/L Troponin I (0.00-0.120) ng/mL Total Protein 5.9 L (6.3-8.2) G/DL Albumin 3.1 L D (3.5-5.0) g/dL Globulin 2.8 (2.2-3.9) gm/dL Albumin/Globulin Ratio 1.1 (1.0-2.1) Lipase (23-300) U/L Arterial Blood Potassium (3.6-5.2) mmol/L Venous Blood Potassium (3.6-5.2) mmol/L Alcohol, Quantitative (0-10) mg/dl 08/22/18 08/22/18 08/22/18 Range/Units 20:18 16:24 16:24 WBC 10.7 (4.8-10.8) K/uL RBC 4.19 (3.80-5.20) Mil/uL Hgb 14.5 (12.0-16.0) g/dL Hct 44.9 (34.0-47.0) % MCV 107.1 H D (81.0-99.0) fl MCH 34.6 H (27.0-31.0) pg MCHC 32.3 L (33.0-37.0) g/dL RDW 18.2 H (11.5-14.5) % Plt Count 180 (130-400) K/uL MPV 10.9 (7.2-11.7) fl Neut % (Auto) 83.9 H (50.0-75.0) % Lymph % (Auto) 3.3 L (20.0-40.0) % [place] % (Auto) 12.7 H (0.0-10.0) % Eos % (Auto) 0.0 (0.0-4.0) % Baso % (Auto) 0.1 (0.0-2.0) % Neut # (Auto) 9.0 H (1.8-7.0) K/uL Lymph # (Auto) 0.3 L (1.0-4.3) K/uL [place] # (Auto) 1.4 H (0.0-0.8) K/uL Eos # (Auto) 0.0 (0.0-0.7) K/uL Baso # (Auto) 0.0 (0.0-0.2) K/uL Neutrophils % (Manual) 46 (42-75) % Band Neutrophils % 35 H* (0-2) % Lymphocytes % (Manual) 2 L (20-50) % Monocytes % (Manual) 16 H (0-10) % Metamyelocytes % 1 H (0-0) % Platelet Estimate Normal (NORMAL) Large Platelets Present Anisocytosis (manual) Slight Macrocytosis (manual) Slight PT 11.3 (9.8-13.1) Seconds INR 1.0 APTT 30.6 (25.6-37.1) Seconds pCO2 (35-45) mm/Hg pO2 34 (30-55) mm/Hg HCO3 (21-28) mmol/L ABG pH (7.35-7.45) ABG Total CO2 (22-28) mmol/L ABG O2 Saturation (95-98) % ABG O2 Content (15-23) ML/dL ABG Base Excess (-2.0-3.0) mmol/L ABG Hemoglobin (11.7-17.4) g/dL ABG Carboxyhemoglobin (0.5-1.5) % POC ABG HHb (Measured) (0.0-5.0) % ABG Methemoglobin (0.0-3.0) % ABG O2 Capacity (16-24) mL/dL Genaro Test ABG Potassium (3.6-5.2) mmol/L VBG pH 7.39 (7.32-7.43) VBG pCO2 32 L (40-60) mmHg VBG HCO3 20.5 mmol/L VBG Total CO2 20.4 L (22-28) mmol/L VBG O2 Sat (Calc) 67.4 H (40-65) % VBG Base Excess -4.6 L (0.0-2.0) mmol/L VBG Potassium 3.2 L (3.6-5.2) mmol/L A-a O2 Difference 76.0 mm/Hg Hgb O2 Saturation (95.0-98.0) % Sodium 166.0 H* (132-148) mmol/L Chloride (98-107) mmol/L Glucose 140 H (65-105) mg/dL Lactate 2.6 H (0.7-2.1) mmol/L Vent Mode Mechanical Rate FiO2 21.0 % Tidal Volume PEEP Crit Value Called To Anmol barriga rn Crit Value Called By 6075 Crit Value Read Back Y Blood Gas Notified Time 2022 Potassium (3.6-5.0) MMOL/L Carbon Dioxide (22-30) mmol/L Anion Gap (10-20) BUN (7-17) mg/dl Creatinine (0.7-1.2) mg/dl Est GFR ( Amer) Est GFR (Non-Af Amer) POC Glucose (mg/dL) (65-110) mg/dL Random Glucose (65-105) mg/dL Calcium (8.4-10.2) mg/dL Phosphorus (2.5-4.5) mg/dl Magnesium (1.6-2.3) MG/DL Total Bilirubin (0.2-1.3) mg/dl AST (14-36) U/L ALT (9-52) U/L Alkaline Phosphatase (38-126) U/L Ammonia (9-33) umol/L Troponin I (0.00-0.120) ng/mL Total Protein (6.3-8.2) G/DL Albumin (3.5-5.0) g/dL Globulin (2.2-3.9) gm/dL Albumin/Globulin Ratio (1.0-2.1) Lipase (23-300) U/L Arterial Blood Potassium (3.6-5.2) mmol/L Venous Blood Potassium 3.2 L (3.6-5.2) mmol/L Alcohol, Quantitative (0-10) mg/dl 08/22/18 08/22/18 08/22/18 Range/Units 16:24 16:16 16:00 WBC (4.8-10.8) K/uL RBC (3.80-5.20) Mil/uL Hgb (12.0-16.0) g/dL Hct (34.0-47.0) % MCV (81.0-99.0) fl MCH (27.0-31.0) pg MCHC (33.0-37.0) g/dL RDW (11.5-14.5) % Plt Count (130-400) K/uL MPV (7.2-11.7) fl Neut % (Auto) (50.0-75.0) % Lymph % (Auto) (20.0-40.0) % [place] % (Auto) (0.0-10.0) % Eos % (Auto) (0.0-4.0) % Baso % (Auto) (0.0-2.0) % Neut # (Auto) (1.8-7.0) K/uL Lymph # (Auto) (1.0-4.3) K/uL [place] # (Auto) (0.0-0.8) K/uL Eos # (Auto) (0.0-0.7) K/uL Baso # (Auto) (0.0-0.2) K/uL Neutrophils % (Manual) (42-75) % Band Neutrophils % (0-2) % Lymphocytes % (Manual) (20-50) % Monocytes % (Manual) (0-10) % Metamyelocytes % (0-0) % Platelet Estimate (NORMAL) Large Platelets Anisocytosis (manual) Macrocytosis (manual) PT (9.8-13.1) Seconds INR APTT (25.6-37.1) Seconds pCO2 26 L (35-45) mm/Hg pO2 466 H (30-55) mm/Hg HCO3 17.9 L (21-28) mmol/L ABG pH 7.36 (7.35-7.45) ABG Total CO2 15.5 L (22-28) mmol/L ABG O2 Saturation 100.2 H (95-98) % ABG O2 Content (15-23) ML/dL ABG Base Excess -9.1 L (-2.0-3.0) mmol/L ABG Hemoglobin (11.7-17.4) g/dL ABG Carboxyhemoglobin (0.5-1.5) % POC ABG HHb (Measured) (0.0-5.0) % ABG Methemoglobin (0.0-3.0) % ABG O2 Capacity (16-24) mL/dL Genaro Test Yes ABG Potassium 3.8 (3.6-5.2) mmol/L VBG pH (7.32-7.43) VBG pCO2 (40-60) mmHg VBG HCO3 mmol/L VBG Total CO2 (22-28) mmol/L VBG O2 Sat (Calc) (40-65) % VBG Base Excess (0.0-2.0) mmol/L VBG Potassium (3.6-5.2) mmol/L A-a O2 Difference 215.0 mm/Hg Hgb O2 Saturation (95.0-98.0) % Sodium 158 H 160.0 H* (132-148) mmol/L Chloride 117 H (98-107) mmol/L Glucose 189 H (65-105) mg/dL Lactate 3.0 H (0.7-2.1) mmol/L Vent Mode Mechanical Rate FiO2 100.0 % Tidal Volume PEEP Crit Value Called To Oj santiago Crit Value Called By 23 Crit Value Read Back Y Blood Gas Notified Time 1705 Potassium 4.9 (3.6-5.0) MMOL/L Carbon Dioxide 9 L* D (22-30) mmol/L Anion Gap 37 H (10-20) BUN 211 H* D (7-17) mg/dl Creatinine 5.0 H (0.7-1.2) mg/dl Est GFR ( Amer) 10 Est GFR (Non-Af Amer) 8 POC Glucose (mg/dL) (65-110) mg/dL Random Glucose 250 H (65-105) mg/dL Calcium 7.8 L (8.4-10.2) mg/dL Phosphorus (2.5-4.5) mg/dl Magnesium (1.6-2.3) MG/DL Total Bilirubin 2.6 H (0.2-1.3) mg/dl AST 91 H D (14-36) U/L ALT 44 (9-52) U/L Alkaline Phosphatase 226 H D (38-126) U/L Ammonia 33 (9-33) umol/L Troponin I 0.0570 (0.00-0.120) ng/mL Total Protein 8.9 H (6.3-8.2) G/DL Albumin 4.8 (3.5-5.0) g/dL Globulin 4.1 H (2.2-3.9) gm/dL Albumin/Globulin Ratio 1.2 (1.0-2.1) Lipase 209 (23-300) U/L Arterial Blood Potassium 3.8 (3.6-5.2) mmol/L Venous Blood Potassium (3.6-5.2) mmol/L Alcohol, Quantitative < 10 (0-10) mg/dl 08/22/18 08/22/18 Range/Units 15:50 14:53 WBC (4.8-10.8) K/uL RBC (3.80-5.20) Mil/uL Hgb (12.0-16.0) g/dL Hct (34.0-47.0) % MCV (81.0-99.0) fl MCH (27.0-31.0) pg MCHC (33.0-37.0) g/dL RDW (11.5-14.5) % Plt Count (130-400) K/uL MPV (7.2-11.7) fl Neut % (Auto) (50.0-75.0) % Lymph % (Auto) (20.0-40.0) % [place] % (Auto) (0.0-10.0) % Eos % (Auto) (0.0-4.0) % Baso % (Auto) (0.0-2.0) % Neut # (Auto) (1.8-7.0) K/uL Lymph # (Auto) (1.0-4.3) K/uL [place] # (Auto) (0.0-0.8) K/uL Eos # (Auto) (0.0-0.7) K/uL Baso # (Auto) (0.0-0.2) K/uL Neutrophils % (Manual) (42-75) % Band Neutrophils % (0-2) % Lymphocytes % (Manual) (20-50) % Monocytes % (Manual) (0-10) % Metamyelocytes % (0-0) % Platelet Estimate (NORMAL) Large Platelets Anisocytosis (manual) Macrocytosis (manual) PT (9.8-13.1) Seconds INR APTT (25.6-37.1) Seconds pCO2 (35-45) mm/Hg pO2 23 L (30-55) mm/Hg HCO3 (21-28) mmol/L ABG pH (7.35-7.45) ABG Total CO2 (22-28) mmol/L ABG O2 Saturation (95-98) % ABG O2 Content (15-23) ML/dL ABG Base Excess (-2.0-3.0) mmol/L ABG Hemoglobin (11.7-17.4) g/dL ABG Carboxyhemoglobin (0.5-1.5) % POC ABG HHb (Measured) (0.0-5.0) % ABG Methemoglobin (0.0-3.0) % ABG O2 Capacity (16-24) mL/dL Genaro Test ABG Potassium (3.6-5.2) mmol/L VBG pH 7.12 L* (7.32-7.43) VBG pCO2 36 L (40-60) mmHg VBG HCO3 9.8 mmol/L VBG Total CO2 12.8 L (22-28) mmol/L VBG O2 Sat (Calc) 30.5 L (40-65) % VBG Base Excess -16.8 L (0.0-2.0) mmol/L VBG Potassium 5.0 (3.6-5.2) mmol/L A-a O2 Difference mm/Hg Hgb O2 Saturation (95.0-98.0) % Sodium 157.0 H (132-148) mmol/L Chloride 115.0 H (98-107) mmol/L Glucose 248 H (65-105) mg/dL Lactate 5.8 H* (0.7-2.1) mmol/L Vent Mode Mechanical Rate FiO2 21.0 % Tidal Volume PEEP Crit Value Called To Oj santiago Crit Value Called By 23 Crit Value Read Back Y Blood Gas Notified Time 1600 Potassium (3.6-5.0) MMOL/L Carbon Dioxide (22-30) mmol/L Anion Gap (10-20) BUN (7-17) mg/dl Creatinine (0.7-1.2) mg/dl Est GFR ( Amer) Est GFR (Non-Af Amer) POC Glucose (mg/dL) 278 H (65-110) mg/dL Random Glucose (65-105) mg/dL Calcium (8.4-10.2) mg/dL Phosphorus (2.5-4.5) mg/dl Magnesium (1.6-2.3) MG/DL Total Bilirubin (0.2-1.3) mg/dl AST (14-36) U/L ALT (9-52) U/L Alkaline Phosphatase (38-126) U/L Ammonia (9-33) umol/L Troponin I (0.00-0.120) ng/mL Total Protein (6.3-8.2) G/DL Albumin (3.5-5.0) g/dL Globulin (2.2-3.9) gm/dL Albumin/Globulin Ratio (1.0-2.1) Lipase (23-300) U/L Arterial Blood Potassium (3.6-5.2) mmol/L Venous Blood Potassium 5.0 (3.6-5.2) mmol/L Alcohol, Quantitative (0-10) mg/dl Laboratory Results - last 24 hr 08/22/18 08/22/18 08/22/18 14:53 15:50 16:00 WBC RBC Hgb Hct MCV MCH MCHC RDW Plt Count MPV Neut % (Auto) Lymph % (Auto) [place] % (Auto) Eos % (Auto) Baso % (Auto) Neut # (Auto) Lymph # (Auto) [place] # (Auto) Eos # (Auto) Baso # (Auto) Neutrophils % (Manual) Band Neutrophils % Lymphocytes % (Manual) Monocytes % (Manual) Metamyelocytes % Platelet Estimate Large Platelets Anisocytosis (manual) Macrocytosis (manual) PT INR APTT pCO2 26 L pO2 23 L 466 H HCO3 17.9 L ABG pH 7.36 ABG Total CO2 15.5 L ABG O2 Saturation 100.2 H ABG O2 Content ABG Base Excess -9.1 L ABG Hemoglobin ABG Carboxyhemoglobin POC ABG HHb (Measured) ABG Methemoglobin ABG O2 Capacity Genaro Test Yes ABG Potassium 3.8 VBG pH 7.12 L* VBG pCO2 36 L VBG HCO3 9.8 VBG Total CO2 12.8 L VBG O2 Sat (Calc) 30.5 L VBG Base Excess -16.8 L VBG Potassium 5.0 A-a O2 Difference 215.0 Hgb O2 Saturation Sodium 157.0 H 160.0 H* Chloride 115.0 H Glucose 248 H 189 H Lactate 5.8 H* 3.0 H Vent Mode Mechanical Rate FiO2 21.0 100.0 Tidal Volume PEEP Crit Value Called To Oj santiago Crit Value Called By Crit Value Read Back Y Y Blood Gas Notified Time 1600 1705 Potassium Carbon Dioxide Anion Gap BUN Creatinine Est GFR ( Amer) Est GFR (Non-Af Amer) POC Glucose (mg/dL) 278 H Random Glucose Calcium Phosphorus Magnesium Total Bilirubin AST ALT Alkaline Phosphatase Ammonia Troponin I Total Protein Albumin Globulin Albumin/Globulin Ratio Lipase Arterial Blood Potassium 3.8 Venous Blood Potassium 5.0 Alcohol, Quantitative 08/22/18 08/22/18 08/22/18 16:16 16:24 16:24 WBC 10.7 RBC 4.19 Hgb 14.5 Hct 44.9 MCV 107.1 H D MCH 34.6 H MCHC 32.3 L RDW 18.2 H Plt Count 180 MPV 10.9 Neut % (Auto) 83.9 H Lymph % (Auto) 3.3 L [place] % (Auto) 12.7 H Eos % (Auto) 0.0 Baso % (Auto) 0.1 Neut # (Auto) 9.0 H Lymph # (Auto) 0.3 L [place] # (Auto) 1.4 H Eos # (Auto) 0.0 Baso # (Auto) 0.0 Neutrophils % (Manual) 46 Band Neutrophils % 35 H* Lymphocytes % (Manual) 2 L Monocytes % (Manual) 16 H Metamyelocytes % 1 H Platelet Estimate Normal Large Platelets Present Anisocytosis (manual) Slight Macrocytosis (manual) Slight PT INR APTT pCO2 pO2 HCO3 ABG pH ABG Total CO2 ABG O2 Saturation ABG O2 Content ABG Base Excess ABG Hemoglobin ABG Carboxyhemoglobin POC ABG HHb (Measured) ABG Methemoglobin ABG O2 Capacity Genaro Test ABG Potassium VBG pH VBG pCO2 VBG HCO3 VBG Total CO2 VBG O2 Sat (Calc) VBG Base Excess VBG Potassium A-a O2 Difference Hgb O2 Saturation Sodium 158 H Chloride 117 H Glucose Lactate Vent Mode Mechanical Rate FiO2 Tidal Volume PEEP Crit Value Called To Crit Value Called By Crit Value Read Back Blood Gas Notified Time Potassium 4.9 Carbon Dioxide 9 L* D Anion Gap 37 H BUN 211 H* D Creatinine 5.0 H Est GFR ( Amer) 10 Est GFR (Non-Af Amer) 8 POC Glucose (mg/dL) Random Glucose 250 H Calcium 7.8 L Phosphorus Magnesium Total Bilirubin 2.6 H AST 91 H D ALT 44 Alkaline Phosphatase 226 H D Ammonia 33 Troponin I 0.0570 Total Protein 8.9 H Albumin 4.8 Globulin 4.1 H Albumin/Globulin Ratio 1.2 Lipase 209 Arterial Blood Potassium Venous Blood Potassium Alcohol, Quantitative < 10 08/22/18 08/22/18 08/23/18 16:24 20:18 04:40 WBC 5.8 RBC 3.07 L Hgb 10.8 L D Hct 31.7 L MCV 103.2 H D MCH 35.2 H MCHC 34.1 RDW 18.2 H Plt Count MPV 10.7 Neut % (Auto) 83.9 H Lymph % (Auto) 5.0 L [place] % (Auto) 10.8 H Eos % (Auto) 0.2 Baso % (Auto) 0.1 Neut # (Auto) 4.9 Lymph # (Auto) 0.4 L [place] # (Auto) 0.6 Eos # (Auto) 0.0 Baso # (Auto) 0.0 Neutrophils % (Manual) Band Neutrophils % Lymphocytes % (Manual) Monocytes % (Manual) Metamyelocytes % Platelet Estimate Large Platelets Anisocytosis (manual) Macrocytosis (manual) PT 11.3 INR 1.0 APTT 30.6 pCO2 pO2 34 HCO3 ABG pH ABG Total CO2 ABG O2 Saturation ABG O2 Content ABG Base Excess ABG Hemoglobin ABG Carboxyhemoglobin POC ABG HHb (Measured) ABG Methemoglobin ABG O2 Capacity [place] Test ABG Potassium VBG pH 7.39 VBG pCO2 32 L VBG HCO3 20.5 VBG Total CO2 20.4 L VBG O2 Sat (Calc) 67.4 H VBG Base Excess -4.6 L VBG Potassium 3.2 L A-a O2 Difference 76.0 Hgb O2 Saturation Sodium 166.0 H* Chloride Glucose 140 H Lactate 2.6 H Vent Mode Mechanical Rate FiO2 21.0 Tidal Volume PEEP Crit Value Called To Anmol barriga rn Crit Value Called By [id number] Crit Value Read Back Y Blood Gas Notified Time 2022 Potassium Carbon Dioxide Anion Gap BUN Creatinine Est GFR ( Amer) Est GFR (Non-Af Amer) POC Glucose (mg/dL) Random Glucose Calcium Phosphorus Magnesium Total Bilirubin AST ALT Alkaline Phosphatase Ammonia Troponin I Total Protein Albumin Globulin Albumin/Globulin Ratio Lipase Arterial Blood Potassium Venous Blood Potassium 3.2 L Alcohol, Quantitative 08/23/18 08/23/18 04:40 05:31 WBC RBC Hgb Hct MCV MCH MCHC RDW Plt Count MPV Neut % (Auto) Lymph % (Auto) [place] % (Auto) Eos % (Auto) Baso % (Auto) Neut # (Auto) Lymph # (Auto) [place] # (Auto) Eos # (Auto) Baso # (Auto) Neutrophils % (Manual) Band Neutrophils % Lymphocytes % (Manual) Monocytes % (Manual) Metamyelocytes % Platelet Estimate Large Platelets Anisocytosis (manual) Macrocytosis (manual) PT INR APTT pCO2 26 L pO2 213 H HCO3 20.4 L ABG pH 7.43 ABG Total CO2 18.1 L ABG O2 Saturation 99.7 H ABG O2 Content 15.3 ABG Base Excess -5.8 L ABG Hemoglobin 10.8 L ABG Carboxyhemoglobin 1.0 POC ABG HHb (Measured) 0.3 ABG Methemoglobin 1.5 ABG O2 Capacity 15.3 L [place] Test Yes ABG Potassium VBG pH VBG pCO2 VBG HCO3 VBG Total CO2 VBG O2 Sat (Calc) VBG Base Excess VBG Potassium A-a O2 Difference 468.0 Hgb O2 Saturation 97.2 Sodium 155 H Chloride 116 H Glucose Lactate Vent Mode A/c Mechanical Rate 12 FiO2 100.0 Tidal Volume 450 PEEP 5 Crit Value Called To Crit Value Called By Crit Value Read Back Blood Gas Notified Time Potassium 3.1 L Carbon Dioxide 18 L Anion Gap 24 H BUN 191 H* Creatinine 4.6 H Est GFR ( Amer) 11 Est GFR (Non-Af Amer) 9 POC Glucose (mg/dL) Random Glucose 243 H Calcium 5.5 L* D Phosphorus 7.0 H Magnesium 1.9 Total Bilirubin 1.5 H AST 64 H D ALT 40 Alkaline Phosphatase 176 H D Ammonia Troponin I Total Protein 5.9 L Albumin 3.1 L D Globulin 2.8 Albumin/Globulin Ratio 1.1 Lipase Arterial Blood Potassium Venous Blood Potassium Alcohol, Quantitative Radiology Impressions: Radiology Impressions Chest X-Ray 08/22/18 15:13 IMPRESSION: Mild volume loss and subsegmental atelectasis at the lung bases. No appreciable focal alveolar infiltrate. Chest X-Ray 08/22/18 16:09 IMPRESSION: Endotracheal tube terminates approximately 3 cm above the jac. EKG/Cardiology Studies: Cardiology / EKG Studies 08/22/18 15:13 EKG [ELECTROCARDIOGRAM] Stat Comment: Mode Of Transportation: PORTABLE Reason For Exam: SOB Fingerstick Blood Sugar Results: 238 Review of Systems - Review of Systems Systems not reviewed;Unavailable: Intubated Critical Care Progress Note - Ventilator Checklist Head of Bed 30 Degrees: Yes Daily Sedation Vacation: Yes Daily Assessment of Readiness to Wean: Yes Daily Spontaneous Breathing Trial: Yes PUD Prophalyxis: Yes DVT Prophylaxis: Yes Oral Care with Chlorhexidine Gluconate {CHG}: Yes - Extremities/Vascular Does the Patient have a Central Venous Catheter?: Yes Does the Patient need a Central Venous Catheter?: Yes Does the Patient have a Segal Catheter?: Yes Does the Patient need a Segal Catheter?: Yes Assessment/Plan (1) Altered mental status Current Visit: Yes Status: Acute Priority: High (2) Acute respiratory failure Current Visit: Yes Status: Acute Priority: High (3) Septic shock Current Visit: Yes Status: Acute Priority: High (4) Acute renal failure Current Visit: Yes Status: Acute Priority: High (5) Metabolic acidosis Current Visit: Yes Status: Acute Priority: High (6) Hypernatremia Current Visit: Yes Status: Acute Priority: High - Assessment and Plan (Free Text) Assessment: Neuro: Patient with altered mental status, in the setting of toxic metabolic encephalopathy, multifactorial from acute kidney injury, uremia, septic shock, severe hypernatremia, dehydration. She was taken off sedation this morning, she underwent head CT scan yesterday which was negative for intracranial pathology Case discussed with the neurology and infectious disease consult, and based on the neurology exam symptom more consistent with intracranial pathology so we are arranging for a stat MRI of the brain, she was started on IV Rocephin and after the MRI of the brain consider spinal tap Pulmonary: Acute respiratory failure, likely aspiration pneumonia, full vent support for now, patient is not candidate for any vent weaning due to very poor mental status Empiric antibiotic coverage CVS: Pt hemodynamically unstable, requiring vasopressor support with levophed Renal: Acute Oliguric kidney injury with metabolic lactic acidosis and hypernatremia, possible severe dehydration. Elevated serum osmolality she underwent, emergent dialysis. Continue 1/2NS+75 meq SB@100 Drug screen only positive for benzos and alcohol level less than 10 ID: Patient hemodynamically unstable, elevated lactate with markedly elevated bandemia, clinical picture also consistent with severe sepsis, so far source unknown but likely aspiration pneumonia. Empiric broad spectrum coverage, Vanco and Zosyn, and Rocephin was added this morning for the possibility of meningitis which is less likely based on neuro exam, she is scheduled for MRI of the brain. DVT proph with SQ heparin sq GI proph with IV protonix Code status - full code Total critical care time 54 minutes Patient daughter Marj is available now and the correct phone number updated in the patient record Discussed with the family in detail patient diagnosis, very critical condition, treatment plan and alternatives
[2018-08-23 08:41] LABS: BANDS 32 % (0-2); LYMPHOCYTE 7 % (20-50); METAMYELOCYTE 7 % (0-0); MONOCYTE 11 % (0-10); MYELOCYTE 7 % (0-0); NEUTROPHIL 36 % (42-75); NUCLEATED RED BLOOD CELL 3 % (0-0); PLATELET ESTIMATE SLIGHTLY DECREASED (NORMAL); TOTAL CELLS COUNTED 100
[2018-08-23 08:42] LABS: ANISOCYTOSIS SLIGHT; POIKILOCYTOSIS SLIGHT
[2018-08-23 08:43] LABS: LARGE PLATELETS PRESENT; OVALOCYTES SLIGHT; STOMATOCYTES SLIGHT; TEARDROP CELLS SLIGHT
[2018-08-23] MEDS ORDERED: Sodium Bicarbonate (8.4%) 50 Meq Syringe IVP ONE ×2 (08:48→08:49)
--- NOTE | 2018-08-23 08:48 | CT ---
Date of service: 08/22/2018 PROCEDURE: CT HEAD WITHOUT CONTRAST. HISTORY: AMS COMPARISON: 07/18/2018 TECHNIQUE: Axial computed tomography images were obtained through the head/brain without intravenous contrast. Radiation dose: Total exam DLP = 944.14 mGy-cm. This CT exam was performed using one or more of the following dose reduction techniques: Automated exposure control, adjustment of the mA and/or kV according to patient size, and/or use of iterative reconstruction technique. FINDINGS: HEMORRHAGE: No intracranial hemorrhage. BRAIN: No mass effect or edema. Mild diffuse age-appropriate cerebral atrophy. Mild periventricular white matter lucency consistent with chronic microvascular ischemic change. No evidence of acute infarct. VENTRICLES: Unremarkable. No hydrocephalus. CALVARIUM: Unremarkable. PARANASAL SINUSES: Unremarkable as visualized. No significant inflammatory changes. MASTOID AIR CELLS: Unremarkable as visualized. No inflammatory changes. OTHER FINDINGS: None. IMPRESSION: No intracranial mass, hemorrhage or evidence of acute infarct. Mild age-appropriate involutional change. No change from prior examination. The preliminary findings for this examination were reported by [facility] at 10:16 p.m. on 08/22/2018. There is concurrence of this report with the preliminary findings.
--- NOTE | 2018-08-23 08:55 | CP.PCM.CON ---
History of Present Illness - History of Present Illness History of Present Illness: There is 73 years of age female who was brought to the emergency room with no history except she was found in the floor with her body full of feces and she was found to have very high BUN and creatinine and she required to be intubated the patient was in respiratory distress and I was called to see her for abnormal kidney function. Patient apparently has multitude of medical problems related to psychiatric problems and multiple admissions in psychiatry in addition to the medical problem from the medical record. No history available from the patient and the family could not be contacted. PMHx ETOH abuse, HTN, HLD, COPD, oropharyngeal cancer s/p resection 2002, Hysterectomy, anxiety, bipolar disorder, colonic polyps, squamous cell CA mouth/neck (2009), osteoporosis, PTSD, Schizophrenia. Social history as noted in the medical record from the previous admission. Review of Systems - Review of Systems Systems not reviewed;Unavailable: Respiratory Distress, Dementia - Constitutional Constitutional: Anorexia, Chills - EENT Eyes: As Per HPI. absent: Exophthalmos Nose/Mouth/Throat: Dry Mouth - Cardiovascular Cardiovascular: Dyspnea. absent: Acrocyanosis, Chest Pain, Palpitations - Respiratory Respiratory: Dyspnea. absent: Cough, Hemoptysis - Gastrointestinal Gastrointestinal: absent: Abdominal Pain, Coffee Ground Emesis - Genitourinary Genitourinary: Nocturia. absent: Hematuria - Musculoskeletal Musculoskeletal: absent: Joint Swelling - Neurological Neurological: Confusion, Disequilibrium, Frequent Falls, Memory Loss, Weakness - Psychiatric Psychiatric: As Per HPI - Endocrine Endocrine: Fatigue - Hematologic/Lymphatic Hematologic: absent: Easy Bleeding Past Patient History - Infectious Disease Hx of Infectious Diseases: None - Tetanus Immunizations Tetanus Immunization: Unknown - Past Medical History & Family History Past Medical History?: Yes - Past Social History Smoking Status: Former Smoker - CARDIAC Hx Cardiac Disorders: Yes Hx Congestive Heart Failure: No Hx Hypercholesterolemia: Yes Hx Hypertension: Yes - PULMONARY Hx Respiratory Disorders: Yes Hx Bronchitis: Yes Hx Chronic Obstructive Pulmonary Disease (COPD): Yes Hx Pneumonia: Yes - NEUROLOGICAL Hx Neurological Disorder: Yes Hx Dementia: Yes Hx Seizures: No Hx Transient Ischemic Attacks (TIA): No - HEENT Hx HEENT Problems: Yes Hx Cataracts: Yes - RENAL Hx Chronic Kidney Disease: No - ENDOCRINE/METABOLIC Hx Endocrine Disorders: No Hx Hypothyroidism: No - HEMATOLOGICAL/ONCOLOGICAL Hx Blood Disorders: No Hx Human Immunodeficiency Virus (HIV): No - INTEGUMENTARY Hx Dermatological Problems: Yes Hx Squamous Cell: Yes (No Chemo treatment; surgery 10 yrs ago at [place]) - MUSCULOSKELETAL/RHEUMATOLOGICAL Hx Musculoskeletal Disorders: Yes Hx Arthritis: Yes Hx Falls: Yes Hx Fractures: Yes (right wrist fracture, rib fx) Hx Osteoporosis: Yes Hx Rheumatoid Arthritis: No - GASTROINTESTINAL Hx Gastrointestinal Disorders: No - GENITOURINARY/GYNECOLOGICAL Hx Genitourinary Disorders: No Hx Sexually Transmitted Disorders: No - PSYCHIATRIC Hx Psychophysiologic Disorder: Yes Hx Anxiety: Yes Hx Bipolar Disorder: Yes Hx Depression: Yes Hx Post Traumatic Stress Disorder: Yes Hx Schizophrenia: Yes Hx Substance Use: No - SURGICAL HISTORY Hx Surgeries: Yes Hx Hysterectomy: Yes (Partial) Other/Comment: mouth and neck CA SX - ANESTHESIA Hx Anesthesia: Yes Hx Anesthesia Reactions: No Hx Malignant Hyperthermia: No Meds Allergies/Adverse Reactions: Allergies Allergy/AdvReac Type Severity Reaction Status Date / Time No Known Allergies Allergy Verified 08/22/18 14:40 - Medications Medications: Current Medications Acetaminophen (Tylenol 650 Mg Supp) 650 mg MN Q6 PRN PRN Reason: Fever >100.4 F Last Admin: 08/23/18 00:04 Dose: 650 mg Propofol (Diprivan) 1,000 mg in 100 mls @ 0.816 mls/hr IV .Q24H BHUPENDRA; Protocol Stop: 08/23/18 17:16 Last Titration: 08/22/18 17:17 Dose: 15 mcg/kg/min, 4.899 mls/hr Midazolam HCl 50 mg/ Dextrose 100 mls @ 4 mls/hr IV .Q24H ONE; Protocol Stop: 08/23/18 17:59 Last Titration: 08/22/18 21:57 Dose: 2 mg/hr, 4 mls/hr Dexmedetomidine HCl 400 mcg/ (Sodium Chloride) 100 mls @ 2.72 mls/hr IV .Q24H ONE; Protocol Stop: 08/23/18 18:06 Last Titration: 08/23/18 01:44 Dose: 0.2 mcg/kg/hr, 2.72 mls/hr Piperacillin Sod/Tazobactam (Sod 2.25 gm/ Sodium Chloride) 100 mls @ 100 mls/hr IVPB Q8 BHUPENDRA; Protocol Last Admin: 08/23/18 00:00 Dose: 100 mls/hr Norepinephrine Bitartrate 8 mg (/ Dextrose) 258 mls @ 4.84 mls/hr IV .Q24H ONE; Protocol Stop: 08/23/18 22:10 Last Titration: 08/23/18 08:31 Dose: 10 mcg/min, 19.35 mls/hr Sodium Bicarbonate 75 meq/ (Sodium Chloride) 1,075 mls @ 100 mls/hr IV .[id number] BHUPENDRA Stop: 08/23/18 18:32 Last Admin: 08/22/18 22:44 Dose: 100 mls/hr Dextrose (Dextrose 5% In Water 1000 Ml) 1,000 mls @ 100 mls/hr IV .Q10H BHUPENDRA Stop: 08/23/18 22:18 Last Admin: 08/22/18 22:44 Dose: 100 mls/hr Ceftriaxone Sodium 1 gm/ (Sodium Chloride) 100 mls @ 100 mls/hr IVPB DAILY BHUPENDRA; Protocol Sodium Bicarbonate (Sodium Bicarbonate (8.4%) 50 Meq Syringe) 50 meq IVP ONCE ONE Stop: 08/23/18 08:50 Physical Exam - Constitutional Appears: In Acute Distress - Eye Exam Eye Exam: Conjunctival injection - ENT Exam ENT Exam: Mucous Membranes Dry - Neck Exam Neck exam: Negative for: Lymphadenopathy - Respiratory Exam Respiratory Exam: absent: Chest Wall Tenderness, Rhonchi - Cardiovascular Exam Cardiovascular Exam: absent: Gallop, JVD, Rubs - GI/Abdominal Exam GI & Abdominal Exam: Normal Bowel Sounds. absent: Guarding - Extremities Exam Extremities exam: Negative for: calf tenderness - Back Exam Back exam: absent: CVA tenderness (L), CVA tenderness (R) - Neurological Exam Neurological exam: Altered - Psychiatric Exam Psychiatric exam: Flat Affect Results - Vital Signs Recent Vital Signs: Last Vital Signs Temp 99.6 F 08/23/18 08:00 Pulse 106 H 08/23/18 08:00 Resp 21 08/23/18 08:00 BP 87/61 L 08/23/18 08:00 Pulse Ox 95 08/23/18 08:00 - Labs Result Diagrams: 08/23/18 04:40 08/23/18 04:40 Labs: Laboratory Results - last 24 hr 08/22/18 08/22/18 08/22/18 14:53 15:50 16:00 WBC RBC Hgb Hct MCV MCH MCHC RDW Plt Count MPV Neut % (Auto) Lymph % (Auto) Hancock % (Auto) Eos % (Auto) Baso % (Auto) Neut # (Auto) Lymph # (Auto) Hancock # (Auto) Eos # (Auto) Baso # (Auto) Neutrophils % (Manual) Band Neutrophils % Lymphocytes % (Manual) Monocytes % (Manual) Metamyelocytes % Myelocytes % Nucleated RBC % Platelet Estimate Large Platelets Poikilocytosis (manual Anisocytosis (manual) Macrocytosis (manual) Tear Drop Cells Ovalocytes Stomatocytes PT INR APTT pCO2 26 L pO2 23 L 466 H HCO3 17.9 L ABG pH 7.36 ABG Total CO2 15.5 L ABG O2 Saturation 100.2 H ABG O2 Content ABG Base Excess -9.1 L ABG Hemoglobin ABG Carboxyhemoglobin POC ABG HHb (Measured) ABG Methemoglobin ABG O2 Capacity Genaro Test Yes ABG Potassium 3.8 VBG pH 7.12 L* VBG pCO2 36 L VBG HCO3 9.8 VBG Total CO2 12.8 L VBG O2 Sat (Calc) 30.5 L VBG Base Excess -16.8 L VBG Potassium 5.0 A-a O2 Difference 215.0 Hgb O2 Saturation Sodium 157.0 H 160.0 H* Chloride 115.0 H Glucose 248 H 189 H Lactate 5.8 H* 3.0 H Vent Mode Mechanical Rate FiO2 21.0 100.0 Tidal Volume PEEP Crit Value Called To Oj santiago Crit Value Called By Crit Value Read Back Y Y Blood Gas Notified Time 1600 1705 Potassium Carbon Dioxide Anion Gap BUN Creatinine Est GFR ( Amer) Est GFR (Non-Af Amer) POC Glucose (mg/dL) 278 H Random Glucose Calcium Phosphorus Magnesium Total Bilirubin AST ALT Alkaline Phosphatase Ammonia Troponin I Total Protein Albumin Globulin Albumin/Globulin Ratio Lipase Arterial Blood Potassium 3.8 Venous Blood Potassium 5.0 Alcohol, Quantitative 08/22/18 08/22/18 08/22/18 16:16 16:24 16:24 WBC 10.7 RBC 4.19 Hgb 14.5 Hct 44.9 MCV 107.1 H D MCH 34.6 H MCHC 32.3 L RDW 18.2 H Plt Count 180 MPV 10.9 Neut % (Auto) 83.9 H Lymph % (Auto) 3.3 L Hancock % (Auto) 12.7 H Eos % (Auto) 0.0 Baso % (Auto) 0.1 Neut # (Auto) 9.0 H Lymph # (Auto) 0.3 L Hancock # (Auto) 1.4 H Eos # (Auto) 0.0 Baso # (Auto) 0.0 Neutrophils % (Manual) 46 Band Neutrophils % 35 H* Lymphocytes % (Manual) 2 L Monocytes % (Manual) 16 H Metamyelocytes % 1 H Myelocytes % Nucleated RBC % Platelet Estimate Normal Large Platelets Present Poikilocytosis (manual Anisocytosis (manual) Slight Macrocytosis (manual) Slight Tear Drop Cells Ovalocytes Stomatocytes PT INR APTT pCO2 pO2 HCO3 ABG pH ABG Total CO2 ABG O2 Saturation ABG O2 Content ABG Base Excess ABG Hemoglobin ABG Carboxyhemoglobin POC ABG HHb (Measured) ABG Methemoglobin ABG O2 Capacity Genaro Test ABG Potassium VBG pH VBG pCO2 VBG HCO3 VBG Total CO2 VBG O2 Sat (Calc) VBG Base Excess VBG Potassium A-a O2 Difference Hgb O2 Saturation Sodium 158 H Chloride 117 H Glucose Lactate Vent Mode Mechanical Rate FiO2 Tidal Volume PEEP Crit Value Called To Crit Value Called By Crit Value Read Back Blood Gas Notified Time Potassium 4.9 Carbon Dioxide 9 L* D Anion Gap 37 H BUN 211 H* D Creatinine 5.0 H Est GFR ( Amer) 10 Est GFR (Non-Af Amer) 8 POC Glucose (mg/dL) Random Glucose 250 H Calcium 7.8 L Phosphorus Magnesium Total Bilirubin 2.6 H AST 91 H D ALT 44 Alkaline Phosphatase 226 H D Ammonia 33 Troponin I 0.0570 Total Protein 8.9 H Albumin 4.8 Globulin 4.1 H Albumin/Globulin Ratio 1.2 Lipase 209 Arterial Blood Potassium Venous Blood Potassium Alcohol, Quantitative < 10 08/22/18 08/22/18 08/23/18 16:24 20:18 04:40 WBC 5.8 RBC 3.07 L Hgb 10.8 L D Hct 31.7 L MCV 103.2 H D MCH 35.2 H MCHC 34.1 RDW 18.2 H Plt Count MPV 10.7 Neut % (Auto) 83.9 H Lymph % (Auto) 5.0 L Hancock % (Auto) 10.8 H Eos % (Auto) 0.2 Baso % (Auto) 0.1 Neut # (Auto) 4.9 Lymph # (Auto) 0.4 L Hancock # (Auto) 0.6 Eos # (Auto) 0.0 Baso # (Auto) 0.0 Neutrophils % (Manual) 36 L Band Neutrophils % 32 H* Lymphocytes % (Manual) 7 L Monocytes % (Manual) 11 H Metamyelocytes % 7 H Myelocytes % 7 H Nucleated RBC % 3 H Platelet Estimate Slightly decreased L Large Platelets Present Poikilocytosis (manual Slight Anisocytosis (manual) Slight Macrocytosis (manual) Slight Tear Drop Cells Slight Ovalocytes Slight Stomatocytes Slight PT 11.3 INR 1.0 APTT 30.6 pCO2 pO2 34 HCO3 ABG pH ABG Total CO2 ABG O2 Saturation ABG O2 Content ABG Base Excess ABG Hemoglobin ABG Carboxyhemoglobin POC ABG HHb (Measured) ABG Methemoglobin ABG O2 Capacity Genaro Test ABG Potassium VBG pH 7.39 VBG pCO2 32 L VBG HCO3 20.5 VBG Total CO2 20.4 L VBG O2 Sat (Calc) 67.4 H VBG Base Excess -4.6 L VBG Potassium 3.2 L A-a O2 Difference 76.0 Hgb O2 Saturation Sodium 166.0 H* Chloride Glucose 140 H Lactate 2.6 H Vent Mode Mechanical Rate FiO2 21.0 Tidal Volume PEEP Crit Value Called To Anmol barriga rn Crit Value Called By 6075 Crit Value Read Back Y Blood Gas Notified Time 2022 Potassium Carbon Dioxide Anion Gap BUN Creatinine Est GFR ( Amer) Est GFR (Non-Af Amer) POC Glucose (mg/dL) Random Glucose Calcium Phosphorus Magnesium Total Bilirubin AST ALT Alkaline Phosphatase Ammonia Troponin I Total Protein Albumin Globulin Albumin/Globulin Ratio Lipase Arterial Blood Potassium Venous Blood Potassium 3.2 L Alcohol, Quantitative 08/23/18 08/23/18 04:40 05:31 WBC RBC Hgb Hct MCV MCH MCHC RDW Plt Count MPV Neut % (Auto) Lymph % (Auto) Hancock % (Auto) Eos % (Auto) Baso % (Auto) Neut # (Auto) Lymph # (Auto) Hancock # (Auto) Eos # (Auto) Baso # (Auto) Neutrophils % (Manual) Band Neutrophils % Lymphocytes % (Manual) Monocytes % (Manual) Metamyelocytes % Myelocytes % Nucleated RBC % Platelet Estimate Large Platelets Poikilocytosis (manual Anisocytosis (manual) Macrocytosis (manual) Tear Drop Cells Ovalocytes Stomatocytes PT INR APTT pCO2 26 L pO2 213 H HCO3 20.4 L ABG pH 7.43 ABG Total CO2 18.1 L ABG O2 Saturation 99.7 H ABG O2 Content 15.3 ABG Base Excess -5.8 L ABG Hemoglobin 10.8 L ABG Carboxyhemoglobin 1.0 POC ABG HHb (Measured) 0.3 ABG Methemoglobin 1.5 ABG O2 Capacity 15.3 L Genaro Test Yes ABG Potassium VBG pH VBG pCO2 VBG HCO3 VBG Total CO2 VBG O2 Sat (Calc) VBG Base Excess VBG Potassium A-a O2 Difference 468.0 Hgb O2 Saturation 97.2 Sodium 155 H Chloride 116 H Glucose Lactate Vent Mode A/c Mechanical Rate 12 FiO2 100.0 Tidal Volume 450 PEEP 5 Crit Value Called To Crit Value Called By Crit Value Read Back Blood Gas Notified Time Potassium 3.1 L Carbon Dioxide 18 L Anion Gap 24 H BUN 191 H* Creatinine 4.6 H Est GFR ( Amer) 11 Est GFR (Non-Af Amer) 9 POC Glucose (mg/dL) Random Glucose 243 H Calcium 5.5 L* D Phosphorus 7.0 H Magnesium 1.9 Total Bilirubin 1.5 H AST 64 H D ALT 40 Alkaline Phosphatase 176 H D Ammonia Troponin I Total Protein 5.9 L Albumin 3.1 L D Globulin 2.8 Albumin/Globulin Ratio 1.1 Lipase Arterial Blood Potassium Venous Blood Potassium Alcohol, Quantitative Assessment & Plan (1) Acute renal failure Assessment and Plan: Acute renal failure on knowing her serum creatinine was normal at about 1-1/2 months ago or so probably related to dehydration and perhaps sepsis? Patient has significant history of psychiatric problem as noted in the past medical history Respiratory failure Severe metabolic acidosis Altered mental status patient is not responding The plan Patient needs dialysis the fact that she has high BUN and creatinine metabolic acidosis altered mental status respiratory failure. Although the family were contacted so many time we could not get any respond therefore me and the court specialist signed consent for the acute dialysis Prognosis guarded at this point patient and stable and receiving dialysis now in the intensive care unit IV fluid was given and sodium bicarbonate as well Serum phosphorus and PTH level Continue hemodialysis tomorrow as well Status: Acute (2) Acute respiratory failure Status: Acute Priority: High (3) Altered mental status Status: Acute (4) Hypernatremia Status: Acute (5) Metabolic acidosis Status: Acute
--- NOTE | 2018-08-23 09:05 | CP.PCM.PN ---
Subjective - Date & Time of Evaluation Date of Evaluation: 08/23/18 Time of Evaluation: 09:03 - Subjective Subjective: Dialysis note She was seen on hemodialysis patient on the respirator now. Dialysis nurse at the bedside Consent was taken with the print and pattern designer because the phone number they have on the record nobody responding to that phone which has been called so many times overnight Patient did have dialysis catheter with the same the surgical team to physician has to sign in order to get the consent Patient so far tolerating hemodialysis for 2 hours patient is acidotic. Objective - Vital Signs/Intake and Output Vital Signs (last 24 hours): Temp Pulse Resp BP Pulse Ox 99.6 F 106 H 21 87/61 L 95 08/23/18 08:00 08/23/18 08:00 08/23/18 08:00 08/23/18 08:00 08/23/18 08:00 Intake and Output: 08/23/18 08/23/18 06:59 18:59 Intake Total 2393.2 48 Output Total 100 Balance 2393.2 -52 - Medications Medications: Current Medications Acetaminophen (Tylenol 650 Mg Supp) 650 mg PA Q6 PRN PRN Reason: Fever >100.4 F Last Admin: 08/23/18 00:04 Dose: 650 mg Propofol (Diprivan) 1,000 mg in 100 mls @ 0.816 mls/hr IV .Q24H BHUPENDRA; Protocol Stop: 08/23/18 17:16 Last Titration: 08/22/18 17:17 Dose: 15 mcg/kg/min, 4.899 mls/hr Midazolam HCl 50 mg/ Dextrose 100 mls @ 4 mls/hr IV .Q24H ONE; Protocol Stop: 08/23/18 17:59 Last Titration: 08/22/18 21:57 Dose: 2 mg/hr, 4 mls/hr Dexmedetomidine HCl 400 mcg/ (Sodium Chloride) 100 mls @ 2.72 mls/hr IV .Q24H ONE; Protocol Stop: 08/23/18 18:06 Last Titration: 08/23/18 01:44 Dose: 0.2 mcg/kg/hr, 2.72 mls/hr Piperacillin Sod/Tazobactam (Sod 2.25 gm/ Sodium Chloride) 100 mls @ 100 mls/hr IVPB Q8 BHUPENDRA; Protocol Last Admin: 08/23/18 00:00 Dose: 100 mls/hr Norepinephrine Bitartrate 8 mg (/ Dextrose) 258 mls @ 4.84 mls/hr IV .Q24H ONE; Protocol Stop: 08/23/18 22:10 Last Titration: 08/23/18 08:31 Dose: 10 mcg/min, 19.35 mls/hr Sodium Bicarbonate 75 meq/ (Sodium Chloride) 1,075 mls @ 100 mls/hr IV .[id number] BHUPENDRA Stop: 08/23/18 18:32 Last Admin: 08/22/18 22:44 Dose: 100 mls/hr Dextrose (Dextrose 5% In Water 1000 Ml) 1,000 mls @ 100 mls/hr IV .Q10H BHUPENDRA Stop: 08/23/18 22:18 Last Admin: 08/22/18 22:44 Dose: 100 mls/hr Ceftriaxone Sodium 1 gm/ (Sodium Chloride) 100 mls @ 100 mls/hr IVPB DAILY BHUPENDRA; Protocol - Labs Labs: 08/23/18 04:40 08/23/18 04:40 PT 11.3 Seconds (9.8-13.1) 08/22/18 16:24 INR 1.0 08/22/18 16:24 APTT 30.6 Seconds (25.6-37.1) 08/22/18 16:24 - Constitutional Appears: In Acute Distress - Eye Exam Eye Exam: Conjunctival injection - ENT Exam ENT Exam: Mucous Membranes Dry - Neck Exam Neck Exam: absent: Lymphadenopathy - Respiratory Exam Respiratory Exam: absent: Chest Wall Tenderness - Cardiovascular Exam Cardiovascular Exam: absent: Gallop, JVD, Rubs - GI/Abdominal Exam GI & Abdominal Exam: Soft, Normal Bowel Sounds - Extremities Exam Extremities Exam: absent: Calf Tenderness - Back Exam Back Exam: absent: CVA tenderness (L), CVA tenderness (R) - Neurological Exam Neurological Exam: Altered - Psychiatric Exam Psychiatric exam: Flat Affect - Skin Skin Exam: absent: Cyanosis Assessment and Plan (1) Acute renal failure Assessment & Plan: Acute renal failure she was seen on hemodialysis with metabolic acidosis. Order was discussed with the dialysis nurse was potassium bath 4 mEq Previous baseline serum creatinine about 2 months ago or so 0.7 Continue hemodialysis today and tomorrow pending response Patient has respiratory failure and not responding and intubated Prognosis guarded Status: Acute (2) Acute respiratory failure Status: Acute (3) Altered mental status Status: Acute (4) Hypernatremia Status: Acute (5) Metabolic acidosis Status: Acute
--- NOTE | 2018-08-23 10:01 | RAD ---
Date of service: 08/23/2018 PROCEDURE: CHEST RADIOGRAPH, 1 VIEW HISTORY: Intubated COMPARISON: 08/22/2018 FINDINGS: LUNGS: Clear. PLEURA: No pneumothorax or pleural fluid seen. CARDIOVASCULAR: There is atherosclerotic calcification of the thoracic aorta. Normal heart size. ET tube tip 1.3 cm above the tracheal jac. Nasogastric tube extends to the left upper quadrant of the abdomen. OSSEOUS STRUCTURES: No significant abnormalities. VISUALIZED UPPER ABDOMEN: Normal. OTHER FINDINGS: None. IMPRESSION: ET tube and NG tube. No infiltrate.
--- NOTE | 2018-08-23 10:45 | CT ---
Date of service: 08/22/2018 PROCEDURE: CT Chest, Abdomen and Pelvis without intravenous contrast HISTORY: Abdominal pain. COMPARISON: 01/08/2018 CT thorax TECHNIQUE: Radiation dose: Total exam DLP = 789.48 mGy-cm. This CT exam was performed using one or more of the following dose reduction techniques: Automated exposure control, adjustment of the mA and/or kV according to patient size, and/or use of iterative reconstruction technique. FINDINGS: CT CHEST WITHOUT CONTRAST: LUNGS: Clear. No nodule, mass or consolidation. MEDIASTINUM: Atherosclerotic calcification and mural plaque present. Findings are seen throughout the aorta which is non aneurysmal. Unremarkable pulmonary arterial trunk. Normal size heart. LYMPH NODES: Unremarkable. PLEURA: Unremarkable. No pneumothorax. No pleural fluid. BONES: Healed posterior lateral right rib fractures. Healed posterior lateral left rib fractures. Compression deformities T7, T11, T12 vertebral bodies. Healed proximal right humeral fracture. OTHER FINDINGS: Satisfactory position of endotracheal tube. Satisfactory position of IJ catheter inserted via right-sided approach. CT ABDOMEN AND PELVIS: LIVER: Unremarkable. No gross lesion or ductal dilatation. GALLBLADDER AND BILE DUCTS: Cholelithiasis without CT evidence of acute cholecystitis. PANCREAS: Unremarkable. No gross lesion or ductal dilatation. SPLEEN: Unremarkable. ADRENALS: Unremarkable. No mass. KIDNEYS AND URETERS: Unremarkable. No hydronephrosis. No solid mass. VASCULATURE: Atherosclerotic calcification and mural plaque present. Findings are seen throughout the aorta which is non aneurysmal. BOWEL: Diffuse thickening of the colon primarily affecting the cecum and ascending colon and to lesser extent transverse and descending colon. Similar findings noted in the sigmoid and rectum. APPENDIX: The distal aspect of the appendix is mildly dilated with periappendiceal inflammatory changes likely reactive related to severe colitis particularly in the cecum. PERITONEUM: Unremarkable. No free fluid. No free air. LYMPH NODES: Unremarkable. No enlarged lymph nodes. BLADDER: Bladder decompressed spine indwelling Segal catheter. REPRODUCTIVE: Unremarkable. BONES: No acute fracture. Evidence of old avulsion fracture from the greater trochanter proximal left femur. OTHER FINDINGS: None. IMPRESSION: Severe-diffuse colitis. Portions of the appendix are edematous likely reactive related to severe colitis. Porcelain gallbladder/gallstones. Satisfactory position of support apparatus. Multiple old fractures described in greater detail above. Concordant results (preliminary interpretation) provided by ERASMO GOMEZ. Procedure Completed: :29. Preliminary Report: Interpreted and electronically signed: 22:42. Final Interpretation: 10:40.August 23, 2018.
[2018-08-23 11:43] LABS: BARBITURATES, UR NEGATIVE (NEGATIVE); BENZODIAZEPINES, UR POSITIVE (NEGATIVE); OPIATES, UR NEGATIVE (NEGATIVE); PHENCYCLIDINE, UR NEGATIVE (NEGATIVE)
[2018-08-23 11:43] LABS: BASO % 0.1 % (0.0-2.0); EOS % 0.3 % (0.0-4.0); LYMPH # 0.9 K/uL (1.0-4.3); LYMPH % 9.1 % (20.0-40.0); MEAN CELL VOLUME 104.1 fl (81.0-99.0); MEAN CORPUSCULAR HEMOGLOBIN 34.6 pg (27.0-31.0); MEAN CORPUSCULAR HGB CONC 33.3 g/dL (33.0-37.0); MEAN PLATELET VOLUME 10.4 fl (7.2-11.7); MONO # 0.7 K/uL (0.0-0.8); MONO % 7.6 % (0.0-10.0); NEUT # 8.1 K/uL (1.8-7.0); NEUT % 82.9 % (50.0-75.0); NRBC % 4.8 % (0.0-0.0); PLATELET COUNT 121 K/uL (130-400); RBC 3.17 Mil/uL (3.80-5.20); RED CELL DISTRIBUTION WIDTH 18.9 % (11.5-14.5); WHITE BLOOD COUNT 9.7 K/uL (4.8-10.8)
[2018-08-23 12:09] LABS: ALB/GLOB RATIO 1.1 (1.0-2.1); ALBUMIN 3.2 g/dL (3.5-5.0)
[2018-08-23 12:26] LABS: BANDS 34 % (0-2); LYMPHOCYTE 6 % (20-50); METAMYELOCYTE 4 % (0-0); MONOCYTE 12 % (0-10); MYELOCYTE 7 % (0-0); NEUTROPHIL 35 % (42-75); NUCLEATED RED BLOOD CELL 9 % (0-0); PLATELET ESTIMATE NORMAL (NORMAL); REACTIVE LYMPHOCYTES 2 % (0-0); TOTAL CELLS COUNTED 100
[2018-08-23 12:27] LABS: ANISOCYTOSIS SLIGHT; GIANT PLATELETS PRESENT; LARGE PLATELETS PRESENT; OVALOCYTES SLIGHT; POIKILOCYTOSIS SLIGHT; TEARDROP CELLS SLIGHT
--- NOTE | 2018-08-23 12:30 | RAD ---
Date of service: 08/22/2018 HISTORY: dialysis cath COMPARISON: August 22, 2018. Study performed 16:02. FINDINGS: LUNGS: No active pulmonary disease. PLEURA: No significant pleural effusion identified, no pneumothorax apparent. CARDIOVASCULAR: No atherosclerotic calcification present Right IJ catheter in satisfactory position. OSSEOUS STRUCTURES: No significant abnormalities. VISUALIZED UPPER ABDOMEN: Normal. OTHER FINDINGS: Stable satisfactory position endotracheal tube. IMPRESSION: No active disease. No significant interval change compared to the prior examination(s). Stable position of endotracheal tube. Satisfactory position of right IJ catheter. No adverse findings, no pneumothorax identified.
--- NOTE | 2018-08-23 13:52 | CP.PCM.HP ---
History of Present Illness - History of Present Illness History of Present Illness: CC: AMS. 73 y/o F, with multiple chronic medical condition including; COPD O2 dependent, Dementia, HTN, DMII, Hx of Oropharyngeal Ca, Tx with surgery 10 yrs ago, Schizophrenia, Major Depression Disorder, substance abuse. Pt was brought on 08/22/18 to ER [facility], [place] via EMS to be evaluated and Tx for AMS on DOA with no improvement, associated to According to EMS; Pt was found at home on the floor by a building maintenance w orker with AMS, associated to SOB and abdominal pain, covered with feces, unknown onset of episode 2nd to dementia. During the hospital course on DOA, Pt developed fever TMAx 100.0 F, HR 104, low BP 97/59 Pt became restless, tachypneic and was intubated, placed in ICU. Worsening symptoms: while at ER, found with B/L subconjuntival hemorrhage, Large areas of ecchymosis to chest, back, b/l arms and lower extremities, Pt unable to state were obtained. Aggravated factor: Movements. Pt intubated, unable to answer questions. CXR: Mild volume loss, atelectasis at the lung bases. CXR Today: ET tube,NG tube, no infiltrates. EKG: Normal sinus rhythm. Head CT: No intracranial mass/hemorrhage or acute infarct. Chest/Abd/Pelvis CT: Severe diffused colitis. Portion of the appendix are edematous likely reactive related to severe colitis. Present on Admission - Present on Admission Any Indicators Present on Admission: No Review of Systems - Review of Systems Systems not reviewed;Unavailable: Acuity of Condition, Dementia, Altered Mental Status, Intubated Past Patient History - Infectious Disease Hx of Infectious Diseases: None - Tetanus Immunizations Tetanus Immunization: Unknown - Past Medical History & Family History Past Medical History?: Yes Pertinent Family History: Unknown - Past Social History Smoking Status: Former Smoker Alcohol: Other (Hx ETOH abuse) Home Situation {Lives}: Alone - CARDIAC Hx Cardiac Disorders: Yes Hx Congestive Heart Failure: No Hx Hypercholesterolemia: Yes Hx Hypertension: Yes - PULMONARY Hx Respiratory Disorders: Yes Hx Bronchitis: Yes Hx Chronic Obstructive Pulmonary Disease (COPD): Yes Hx Pneumonia: Yes - NEUROLOGICAL Hx Neurological Disorder: Yes Hx Dementia: Yes Hx Seizures: No Hx Transient Ischemic Attacks (TIA): No - HEENT Hx HEENT Problems: Yes Hx Cataracts: Yes - RENAL Hx Chronic Kidney Disease: No - ENDOCRINE/METABOLIC Hx Endocrine Disorders: No Hx Hypothyroidism: No - HEMATOLOGICAL/ONCOLOGICAL Hx Blood Disorders: No Hx Human Immunodeficiency Virus (HIV): No - INTEGUMENTARY Hx Dermatological Problems: Yes Hx Squamous Cell: Yes (No Chemo treatment; surgery 10 yrs ago at [facility]) - MUSCULOSKELETAL/RHEUMATOLOGICAL Hx Musculoskeletal Disorders: Yes Hx Arthritis: Yes Hx Falls: Yes Hx Fractures: Yes (right wrist fracture, rib fx) Hx Osteoporosis: Yes Hx Rheumatoid Arthritis: No - GASTROINTESTINAL Hx Gastrointestinal Disorders: No - GENITOURINARY/GYNECOLOGICAL Hx Genitourinary Disorders: No Hx Sexually Transmitted Disorders: No - PSYCHIATRIC Hx Psychophysiologic Disorder: Yes Hx Anxiety: Yes Hx Bipolar Disorder: Yes Hx Depression: Yes Hx Post Traumatic Stress Disorder: Yes Hx Schizophrenia: Yes Hx Substance Use: No - SURGICAL HISTORY Hx Surgeries: Yes Hx Hysterectomy: Yes (Partial) Other/Comment: mouth and neck CA SX - ANESTHESIA Hx Anesthesia: Yes Hx Anesthesia Reactions: No Hx Malignant Hyperthermia: No Meds Allergies/Adverse Reactions: Allergies Allergy/AdvReac Type Severity Reaction Status Date / Time No Known Allergies Allergy Verified 08/22/18 14:40 Physical Exam - Constitutional Appears: Chronically Ill - Head Exam Head Exam: NORMAL INSPECTION - Eye Exam Additional comments: Equal and reactive - ENT Exam Additional comments: Intubated, OGT - Neck Exam Neck exam: Positive for: Normal Inspection - Respiratory Exam Respiratory Exam: Decreased Breath Sounds - Cardiovascular Exam Cardiovascular Exam: Tachycardia - GI/Abdominal Exam GI & Abdominal Exam: Soft - Exam Additional comments: Segal Cath - Extremities Exam Additional comments: Multiple abrasions b/l arms - Back Exam Additional comments: Abrasions on back - Neurological Exam Additional comments: Intubated-comatose - Skin Skin Exam: Warm Results - Vital Signs Recent Vital Signs: Last Vital Signs Temp 100.8 F H 08/23/18 12:05 Pulse 109 H 08/23/18 13:00 Resp 31 H 08/23/18 13:00 BP 110/56 L 08/23/18 13:00 Pulse Ox 95 08/23/18 13:00 reviewed [place] - Labs Result Diagrams: 08/25/18 05:00 08/25/18 05:00 Labs: Laboratory Results - last 24 hr 05/20/19 05/20/19 05/20/19 14:53 15:50 16:00 WBC RBC Hgb Hct MCV MCH MCHC RDW Plt Count MPV Neut % (Auto) Lymph % (Auto) [place] % (Auto) Eos % (Auto) Baso % (Auto) Neut # (Auto) Lymph # (Auto) [place] # (Auto) Eos # (Auto) Baso # (Auto) Neutrophils % (Manual) Band Neutrophils % Lymphocytes % (Manual) Reactive Lymphs % Monocytes % (Manual) Metamyelocytes % Myelocytes % Nucleated RBC % Platelet Estimate Large Platelets Giant Platelets Poikilocytosis (manual Anisocytosis (manual) Macrocytosis (manual) Tear Drop Cells Ovalocytes Stomatocytes PT INR APTT pCO2 26 L pO2 23 L 466 H HCO3 17.9 L ABG pH 7.36 ABG Total CO2 15.5 L ABG O2 Saturation 100.2 H ABG O2 Content ABG Base Excess -9.1 L ABG Hemoglobin ABG Carboxyhemoglobin POC ABG HHb (Measured) ABG Methemoglobin ABG O2 Capacity [place]aro Test Yes ABG Potassium 3.8 VBG pH 7.12 L* VBG pCO2 36 L VBG HCO3 9.8 VBG Total CO2 12.8 L VBG O2 Sat (Calc) 30.5 L VBG Base Excess -16.8 L VBG Potassium 5.0 A-a O2 Difference 215.0 Hgb O2 Saturation Sodium 157.0 H 160.0 H* Chloride 115.0 H Glucose 248 H 189 H Lactate 5.8 H* 3.0 H Vent Mode Mechanical Rate FiO2 21.0 100.0 Tidal Volume PEEP Crit Value Called To Oj santiago Crit Value Called By Crit Value Read Back Y Y Blood Gas Notified Time 1600 1705 Potassium Carbon Dioxide Anion Gap BUN Creatinine Est GFR ( Amer) Est GFR (Non-Af Amer) POC Glucose (mg/dL) 278 H Random Glucose Serum Osmolality Calcium Phosphorus Magnesium Total Bilirubin AST ALT Alkaline Phosphatase Ammonia Troponin I Total Protein Albumin Globulin Albumin/Globulin Ratio Lipase Arterial Blood Potassium 3.8 Venous Blood Potassium 5.0 Urine Opiates Screen Urine Methadone Screen Ur Barbiturates Screen Ur Phencyclidine Scrn Ur Amphetamines Screen U Benzodiazepines Scrn U Oth Cocaine Metabols U Cannabinoids Screen Alcohol, Quantitative Hep Bs Antigen 08/22/18 08/22/18 08/22/18 16:16 16:24 16:24 WBC 10.7 RBC 4.19 Hgb 14.5 Hct 44.9 MCV 107.1 H D MCH 34.6 H MCHC 32.3 L RDW 18.2 H Plt Count 180 MPV 10.9 Neut % (Auto) 83.9 H Lymph % (Auto) 3.3 L [place] % (Auto) 12.7 H Eos % (Auto) 0.0 Baso % (Auto) 0.1 Neut # (Auto) 9.0 H Lymph # (Auto) 0.3 L [place] # (Auto) 1.4 H Eos # (Auto) 0.0 Baso # (Auto) 0.0 Neutrophils % (Manual) 46 Band Neutrophils % 35 H* Lymphocytes % (Manual) 2 L Reactive Lymphs % Monocytes % (Manual) 16 H Metamyelocytes % 1 H Myelocytes % Nucleated RBC % Platelet Estimate Normal Large Platelets Present Giant Platelets Poikilocytosis (manual Anisocytosis (manual) Slight Macrocytosis (manual) Slight Tear Drop Cells Ovalocytes Stomatocytes PT INR APTT pCO2 pO2 HCO3 ABG pH ABG Total CO2 ABG O2 Saturation ABG O2 Content ABG Base Excess ABG Hemoglobin ABG Carboxyhemoglobin POC ABG HHb (Measured) ABG Methemoglobin ABG O2 Capacity [place] Test ABG Potassium VBG pH VBG pCO2 VBG HCO3 VBG Total CO2 VBG O2 Sat (Calc) VBG Base Excess VBG Potassium A-a O2 Difference Hgb O2 Saturation Sodium 158 H Chloride 117 H Glucose Lactate Vent Mode Mechanical Rate FiO2 Tidal Volume PEEP Crit Value Called To Crit Value Called By Crit Value Read Back Blood Gas Notified Time Potassium 4.9 Carbon Dioxide 9 L* D Anion Gap 37 H BUN 211 H* D Creatinine 5.0 H Est GFR ( Amer) 10 Est GFR (Non-Af Amer) 8 POC Glucose (mg/dL) Random Glucose 250 H Serum Osmolality Calcium 7.8 L Phosphorus Magnesium Total Bilirubin 2.6 H AST 91 H D ALT 44 Alkaline Phosphatase 226 H D Ammonia 33 Troponin I 0.0570 Total Protein 8.9 H Albumin 4.8 Globulin 4.1 H Albumin/Globulin Ratio 1.2 Lipase 209 Arterial Blood Potassium Venous Blood Potassium Urine Opiates Screen Urine Methadone Screen Ur Barbiturates Screen Ur Phencyclidine Scrn Ur Amphetamines Screen U Benzodiazepines Scrn U Oth Cocaine Metabols U Cannabinoids Screen Alcohol, Quantitative < 10 Hep Bs Antigen 08/22/18 08/22/18 08/23/18 16:24 20:18 04:40 WBC 5.8 RBC 3.07 L Hgb 10.8 L D Hct 31.7 L MCV 103.2 H D MCH 35.2 H MCHC 34.1 RDW 18.2 H Plt Count 112 L D MPV 10.7 Neut % (Auto) 83.9 H Lymph % (Auto) 5.0 L [place] % (Auto) 10.8 H Eos % (Auto) 0.2 Baso % (Auto) 0.1 Neut # (Auto) 4.9 Lymph # (Auto) 0.4 L [place] # (Auto) 0.6 Eos # (Auto) 0.0 Baso # (Auto) 0.0 Neutrophils % (Manual) 36 L Band Neutrophils % 32 H* Lymphocytes % (Manual) 7 L Reactive Lymphs % Monocytes % (Manual) 11 H Metamyelocytes % 7 H Myelocytes % 7 H Nucleated RBC % 3 H Platelet Estimate Slightly decreased L Large Platelets Present Giant Platelets Poikilocytosis (manual Slight Anisocytosis (manual) Slight Macrocytosis (manual) Slight Tear Drop Cells Slight Ovalocytes Slight Stomatocytes Slight PT 11.3 INR 1.0 APTT 30.6 pCO2 pO2 34 HCO3 ABG pH ABG Total CO2 ABG O2 Saturation ABG O2 Content ABG Base Excess ABG Hemoglobin ABG Carboxyhemoglobin POC ABG HHb (Measured) ABG Methemoglobin ABG O2 Capacity [place]aro Test ABG Potassium VBG pH 7.39 VBG pCO2 32 L VBG HCO3 20.5 VBG Total CO2 20.4 L VBG O2 Sat (Calc) 67.4 H VBG Base Excess -4.6 L VBG Potassium 3.2 L A-a O2 Difference 76.0 Hgb O2 Saturation Sodium 166.0 H* Chloride Glucose 140 H Lactate 2.6 H Vent Mode Mechanical Rate FiO2 21.0 Tidal Volume PEEP Crit Value Called To Anmol barriga rn Crit Value Called By 6087 Crit Value Read Back Y Blood Gas Notified Time 2022 Potassium Carbon Dioxide Anion Gap BUN Creatinine Est GFR ( Amer) Est GFR (Non-Af Amer) POC Glucose (mg/dL) Random Glucose Serum Osmolality Calcium Phosphorus Magnesium Total Bilirubin AST ALT Alkaline Phosphatase Ammonia Troponin I Total Protein Albumin Globulin Albumin/Globulin Ratio Lipase Arterial Blood Potassium Venous Blood Potassium 3.2 L Urine Opiates Screen Urine Methadone Screen Ur Barbiturates Screen Ur Phencyclidine Scrn Ur Amphetamines Screen U Benzodiazepines Scrn U Oth Cocaine Metabols U Cannabinoids Screen Alcohol, Quantitative Hep Bs Antigen 08/23/18 08/23/18 08/23/18 04:40 05:31 07:09 WBC RBC Hgb Hct MCV MCH MCHC RDW Plt Count MPV Neut % (Auto) Lymph % (Auto) [place] % (Auto) Eos % (Auto) Baso % (Auto) Neut # (Auto) Lymph # (Auto) [place] # (Auto) Eos # (Auto) Baso # (Auto) Neutrophils % (Manual) Band Neutrophils % Lymphocytes % (Manual) Reactive Lymphs % Monocytes % (Manual) Metamyelocytes % Myelocytes % Nucleated RBC % Platelet Estimate Large Platelets Giant Platelets Poikilocytosis (manual Anisocytosis (manual) Macrocytosis (manual) Tear Drop Cells Ovalocytes Stomatocytes PT INR APTT pCO2 26 L pO2 213 H HCO3 20.4 L ABG pH 7.43 ABG Total CO2 18.1 L ABG O2 Saturation 99.7 H ABG O2 Content 15.3 ABG Base Excess -5.8 L ABG Hemoglobin 10.8 L ABG Carboxyhemoglobin 1.0 POC ABG HHb (Measured) 0.3 ABG Methemoglobin 1.5 ABG O2 Capacity 15.3 L Genaro Test Yes ABG Potassium VBG pH VBG pCO2 VBG HCO3 VBG Total CO2 VBG O2 Sat (Calc) VBG Base Excess VBG Potassium A-a O2 Difference 468.0 Hgb O2 Saturation 97.2 Sodium 155 H Chloride 116 H Glucose Lactate Vent Mode A/c Mechanical Rate 12 FiO2 100.0 Tidal Volume 450 PEEP 5 Crit Value Called To Crit Value Called By Crit Value Read Back Blood Gas Notified Time Potassium 3.1 L Carbon Dioxide 18 L Anion Gap 24 H BUN 191 H* Creatinine 4.6 H Est GFR ( Amer) 11 Est GFR (Non-Af Amer) 9 POC Glucose (mg/dL) Random Glucose 243 H Serum Osmolality Calcium 5.5 L* D Phosphorus 7.0 H Magnesium 1.9 Total Bilirubin 1.5 H AST 64 H D ALT 40 Alkaline Phosphatase 176 H D Ammonia Troponin I Total Protein 5.9 L Albumin 3.1 L D Globulin 2.8 Albumin/Globulin Ratio 1.1 Lipase Arterial Blood Potassium Venous Blood Potassium Urine Opiates Screen Urine Methadone Screen Ur Barbiturates Screen Ur Phencyclidine Scrn Ur Amphetamines Screen U Benzodiazepines Scrn U Oth Cocaine Metabols U Cannabinoids Screen Alcohol, Quantitative Hep Bs Antigen Negative 08/23/18 08/23/18 08/23/18 09:25 11:00 11:30 WBC 9.7 D RBC 3.17 L Hgb 11.0 L Hct 33.1 L MCV 104.1 H MCH 34.6 H MCHC 33.3 RDW 18.9 H Plt Count 121 L MPV 10.4 Neut % (Auto) 82.9 H Lymph % (Auto) 9.1 L [place] % (Auto) 7.6 Eos % (Auto) 0.3 Baso % (Auto) 0.1 Neut # (Auto) 8.1 H Lymph # (Auto) 0.9 L [place] # (Auto) 0.7 Eos # (Auto) 0.0 Baso # (Auto) 0.0 Neutrophils % (Manual) 35 L Band Neutrophils % 34 H* Lymphocytes % (Manual) 6 L Reactive Lymphs % 2 H Monocytes % (Manual) 12 H Metamyelocytes % 4 H Myelocytes % 7 H Nucleated RBC % 9 H Platelet Estimate Normal Large Platelets Present Giant Platelets Present Poikilocytosis (manual Slight Anisocytosis (manual) Slight Macrocytosis (manual) Slight Tear Drop Cells Slight Ovalocytes Slight Stomatocytes PT INR APTT pCO2 pO2 HCO3 ABG pH ABG Total CO2 ABG O2 Saturation ABG O2 Content ABG Base Excess ABG Hemoglobin ABG Carboxyhemoglobin POC ABG HHb (Measured) ABG Methemoglobin ABG O2 Capacity [place] Test ABG Potassium VBG pH VBG pCO2 VBG HCO3 VBG Total CO2 VBG O2 Sat (Calc) VBG Base Excess VBG Potassium A-a O2 Difference Hgb O2 Saturation Sodium Chloride Glucose Lactate Vent Mode Mechanical Rate FiO2 Tidal Volume PEEP Crit Value Called To Crit Value Called By Crit Value Read Back Blood Gas Notified Time Potassium Carbon Dioxide Anion Gap BUN Creatinine Est GFR ( Amer) Est GFR (Non-Af Amer) POC Glucose (mg/dL) Random Glucose Serum Osmolality 356 H Calcium Phosphorus Magnesium Total Bilirubin AST ALT Alkaline Phosphatase Ammonia Troponin I Total Protein Albumin Globulin Albumin/Globulin Ratio Lipase Arterial Blood Potassium Venous Blood Potassium Urine Opiates Screen Negative Urine Methadone Screen Negative Ur Barbiturates Screen Negative Ur Phencyclidine Scrn Negative Ur Amphetamines Screen Negative U Benzodiazepines Scrn Positive U Oth Cocaine Metabols Negative U Cannabinoids Screen Negative Alcohol, Quantitative Hep Bs Antigen 08/23/18 11:30 WBC RBC Hgb Hct MCV MCH MCHC RDW Plt Count MPV Neut % (Auto) Lymph % (Auto) [place] % (Auto) Eos % (Auto) Baso % (Auto) Neut # (Auto) Lymph # (Auto) [place] # (Auto) Eos # (Auto) Baso # (Auto) Neutrophils % (Manual) Band Neutrophils % Lymphocytes % (Manual) Reactive Lymphs % Monocytes % (Manual) Metamyelocytes % Myelocytes % Nucleated RBC % Platelet Estimate Large Platelets Giant Platelets Poikilocytosis (manual Anisocytosis (manual) Macrocytosis (manual) Tear Drop Cells Ovalocytes Stomatocytes PT INR APTT pCO2 pO2 HCO3 ABG pH ABG Total CO2 ABG O2 Saturation ABG O2 Content ABG Base Excess ABG Hemoglobin ABG Carboxyhemoglobin POC ABG HHb (Measured) ABG Methemoglobin ABG O2 Capacity [place] Test ABG Potassium VBG pH VBG pCO2 VBG HCO3 VBG Total CO2 VBG O2 Sat (Calc) VBG Base Excess VBG Potassium A-a O2 Difference Hgb O2 Saturation Sodium 146 Chloride 106 Glucose Lactate Vent Mode Mechanical Rate FiO2 Tidal Volume PEEP Crit Value Called To Crit Value Called By Crit Value Read Back Blood Gas Notified Time Potassium 3.6 Carbon Dioxide 20 L Anion Gap 24 H BUN 105 H* D Creatinine 3.1 H Est GFR ( Amer) 18 Est GFR (Non-Af Amer) 15 POC Glucose (mg/dL) Random Glucose 177 H Serum Osmolality Calcium 6.0 L* Phosphorus 6.0 H Magnesium 1.8 Total Bilirubin 1.5 H AST 94 H D ALT 44 Alkaline Phosphatase 189 H Ammonia Troponin I Total Protein 6.2 L Albumin 3.2 L Globulin 3.0 Albumin/Globulin Ratio 1.1 Lipase Arterial Blood Potassium Venous Blood Potassium Urine Opiates Screen Urine Methadone Screen Ur Barbiturates Screen Ur Phencyclidine Scrn Ur Amphetamines Screen U Benzodiazepines Scrn U Oth Cocaine Metabols U Cannabinoids Screen Alcohol, Quantitative Hep Bs Antigen reviewed J.P. - EKG Data EKG comments: reviewed J.P. - Imaging and Cardiology CT scan - abdomen Status: Report reviewed by me ([place]) CT scan - pelvis Status: Report reviewed by me ([place]) CT scan - chest Status: Report reviewed by me ([place]) CT scan - head Status: Report reviewed by me ([place]) Chest x-ray Status: Report reviewed by me ([place]) Assessment & Plan (1) Acute respiratory failure Status: Acute Priority: High (2) Septic shock Status: Acute Priority: High (3) Altered mental status Status: Acute Priority: High (4) Acute renal failure Status: Acute Priority: High (5) Metabolic acidosis Status: Acute Priority: High (6) Colitis Status: Acute Priority: High (7) DMII (diabetes mellitus, type 2) Status: Chronic Priority: High (8) Abdominal pain in female Status: Acute Priority: High (9) Chest pain Status: Acute Priority: High (10) Hypernatremia Status: Acute Priority: High (11) COPD (chronic obstructive pulmonary disease) Status: Chronic Priority: Medium (12) Dementia Status: Chronic Priority: High (13) History of alcohol abuse Status: Chronic - Assessment and Plan (Free Text) Plan: Pt had HD today, f/u Brain MRI, Hepatitis C, Hepatitis B, Drug Screen, U C-S, MRSA Screen, Occult Blood Stool, continue respiratory support, continue Rocephin, Zosyn and rest of Tx. Surgery, Nephrology and Neurology consult appreciated. ID consult. Critical care time: 60 min. - Date & Time Date: 08/23/18 Time: 12:00
[2018-08-23] MEDS ORDERED: Chlorhexidine Gluconate 1 APPL/PKT TP ONE (16:27)
--- NOTE | 2018-08-23 17:12 | CARD ---
APPROVED REPORT Date of service: 08/22/2018 EKG Measurement Heart [id number] <Conclusion> Normal sinus rhythm Nonspecific ST and T wave abnormality Prolonged QT Abnormal ECG
[2018-08-23 17:54] LABS: HEPATITIS B CORE AB NEGATIVE (NEGATIVE)
[2018-08-23 18:06] LABS: HEPATITIS C ANTIBODY NEGATIVE (NEGATIVE)
[2018-08-23 20:50] LABS: BASO % 0.2 % (0.0-2.0); EOS % 0.2 % (0.0-4.0); HEMOGLOBIN 11.6 g/dL (12.0-16.0); LYMPH # 1.1 K/uL (1.0-4.3); LYMPH % 6.8 % (20.0-40.0); MEAN CELL VOLUME 102.5 fl (81.0-99.0); MEAN CORPUSCULAR HEMOGLOBIN 34.3 pg (27.0-31.0); MEAN CORPUSCULAR HGB CONC 33.5 g/dL (33.0-37.0); MEAN PLATELET VOLUME 9.9 fl (7.2-11.7); MONO # 0.9 K/uL (0.0-0.8); MONO % 5.4 % (0.0-10.0); NEUT # 14.4 K/uL (1.8-7.0); NEUT % 87.4 % (50.0-75.0); NRBC % 1.6 % (0.0-0.0); RBC 3.37 Mil/uL (3.80-5.20); RED CELL DISTRIBUTION WIDTH 18.7 % (11.5-14.5)
[2018-08-23 20:52] LABS: WHITE BLOOD COUNT 16.5 K/uL (4.8-10.8)
[2018-08-23 21:26] LABS: ALB/GLOB RATIO 1.1 (1.0-2.1); ALBUMIN 3.3 g/dL (3.5-5.0); CALCIUM 6.2 mg/dL (8.4-10.2)
[2018-08-24 03:50] LABS: ABG ALLEN TEST YES; ARTERIAL BLOOD GAS HEMOGLOBIN 6.1 g/dL (11.7-17.4); ARTERIAL BLOOD GAS O2 CAPACITY 8.8 mL/dL (16-24); ARTERIAL BLOOD GAS O2 CONTENT 8.8 ML/dL (15-23); ARTERIAL BLOOD GAS O2 SAT 99.8 % (95-98); ARTERIAL BLOOD GAS PCO2 28 mm/Hg (35-45); ARTERIAL BLOOD GAS PH 7.52 (7.35-7.45); ARTERIAL BLOOD GAS PO2 187 mm/Hg (80-100); ARTERIAL BLOOD GAS TCO2 23.8 mmol/L (22-28)
[2018-08-24 05:19] LABS: HEMOGLOBIN 10.9 g/dL (12.0-16.0); MEAN CELL VOLUME 102.6 fl (81.0-99.0); MEAN CORPUSCULAR HGB CONC 33.2 g/dL (33.0-37.0); RBC 3.21 Mil/uL (3.80-5.20); RED CELL DISTRIBUTION WIDTH 18.9 % (11.5-14.5); WHITE BLOOD COUNT 15.6 K/uL (4.8-10.8)
[2018-08-24 05:38] LABS: CALCIUM 5.7 mg/dL (8.4-10.2)
--- NOTE | 2018-08-24 08:19 | RAD ---
Date of service: 08/24/2018 HISTORY: ETT placement COMPARISON: 08/23/2018 TECHNIQUE: 1 view obtained. FINDINGS: LUNGS: No active pulmonary disease. Endotracheal tube tip 1.5 to 2 cm above the jac. Similar in position Like discoid atelectasis and/or scarring left lateral lung base PLEURA: No significant pleural effusion identified, no pneumothorax apparent. CARDIOVASCULAR: There is presence of aortic atherosclerotic calcification on x-ray. Normal cardiac size. Probably [id number]-appearing OSSEOUS STRUCTURES: Thoraco lumbar spondylosis. Right shoulder arthrosis VISUALIZED UPPER ABDOMEN: Nasogastric tube tip beyond inferior edge of image. Sidehole approximate GE junction. OTHER FINDINGS: IMPRESSION: No interval pathology noted.
--- NOTE | 2018-08-24 09:18 | CON ---
DATE: 08/23/2018 HISTORY OF PRESENT ILLNESS: The patient is a 73-year-old woman who came to the emergency room a month ago the EMS after the patient was found in her apartment by the facility maintenance supervisor. She has been here for several days and she has gotten dialysis. She was doing well until last night, middle of the night, when the patient suddenly decompensated and had an acute change in mental status. The patient was intubated for airway protection by Dr. Chip Mckeon and was found to be in [place], needing urgent dialysis. Code status was called as well. Today, the patient is examined. Review of systems is not possible. She does not have 8 brainstem. She is not responding to pain. She does not have doll's eyes. There are no corneal or eye movements. This exam was done off sedation. PAST MEDICAL HISTORY: Hypertension, alcohol abuse, 5 , COPD, oropharyngeal cancer, status post resection in 2002, hysterectomy, anxiety, bipolar, colonic polyps, squamous cell CA, osteoporosis, PTSD, and schizophrenia. CURRENT MEDICATIONS: Vancomycin and sodium chloride. PHYSICAL EXAMINATION: VITAL SIGNS: Stable. LABORATORY DATA: Labs show normal white count, hemoglobin of 11, hematocrit 38.1. Neutrophils show bandemia with 34 bands. Coags are normal. Chemistry shows abnormalities of BUN and creatinine of 105 and 3.1, originally was 211 and 5.2. AST and ALT are elevated at 94 and 44. Ammonia is 33. Toxicology is positive for benzodiazepines. CAT scan of the head was done on 08/22/2018 and shows no acute hemorrhage or infarct or stroke. IMPRESSION: This is a 73-year-old woman who may have had an acute ischemic event, cardiac or neurological. I do feel she has also uremic encephalopathy. To further delineate, we will need MRI of the brain and video EEG for 24 hours. Thank you for this consult. Ernst Medley MD
--- NOTE | 2018-08-24 09:28 | CP.PCM.PN ---
Subjective - Date & Time of Evaluation Date of Evaluation: 08/24/18 Time of Evaluation: 09:24 - Subjective Subjective: DIALYSIS NOTE seen on hd remains critically illl and not responsive pe: +s1+s2 lungs coarse mechanical bs ext: mottled appearance on b/l LE imp: ARF/Anemia/acidosis/ Hypocalcemia/ Hyperphosphatemia/ Altered mental status/ plan: 2nd hd today transfusions per primary team ordered 1 gm of IV calcium gluconate - please recheck in afternoon replete as necessary and check ionized calcium as well. will start oral calcium and check vit d and pth as well phos is improved f/u neuro, for MRI today Objective - Vital Signs/Intake and Output Vital Signs (last 24 hours): Temp Pulse Resp BP Pulse Ox 100 F H 103 H 26 H 153/73 H 100 08/24/18 07:41 08/24/18 07:41 08/24/18 07:41 08/24/18 07:41 08/24/18 07:41 Intake and Output: 08/24/18 08/24/18 06:59 18:59 Intake Total 1326 Output Total 10 Balance 1316 - Medications Medications: Current Medications Acetaminophen (Tylenol 650 Mg Supp) 650 mg RI Q6 PRN PRN Reason: Fever >100.4 F Last Admin: 08/23/18 16:24 Dose: 650 mg Folic Acid (Folic Acid) 1 mg PO DAILY [facility] Heparin Sodium (Porcine) (Heparin) 5,000 units SC Q12 BHUPENDRA; Protocol Last Admin: 08/23/18 21:30 Dose: 5,000 units Piperacillin Sod/Tazobactam (Sod 2.25 gm/ Sodium Chloride) 100 mls @ 100 mls/hr IVPB Q8 BHUPENDRA; Protocol Last Admin: 08/24/18 00:31 Dose: 100 mls/hr Ceftriaxone Sodium 1 gm/ (Sodium Chloride) 100 mls @ 100 mls/hr IVPB DAILY BHUPENDRA; Protocol Last Admin: 08/23/18 09:15 Dose: 100 mls/hr Calcium Gluconate 1,000 mg/ (Sodium Chloride) 110 mls @ 100 mls/hr IVPB ONCE ONE Stop: 08/24/18 10:35 Pantoprazole Sodium (Protonix Inj) 40 mg IVP DAILY BHUPENDRA Last Admin: 08/23/18 18:24 Dose: 40 mg Thiamine HCl (Vitamin B1 Inj) 100 mg IM DAILY BHUPENDRA - Labs Labs: 08/24/18 05:00 08/24/18 05:00 PT 11.3 Seconds (9.8-13.1) 08/22/18 16:24 INR 1.0 08/22/18 16:24 APTT 30.6 Seconds (25.6-37.1) 08/22/18 16:24
[2018-08-24] MEDS ORDERED: Sodium Chloride 3% for Inhalation 4 ML VIAL.NEB IH PRN (10:16)
[2018-08-24] MEDS: Thiamine 100 mg/ml Inj IM SCH (11:24)
[2018-08-24] MEDS ORDERED: Iohexol 240 (50 ml) PO ONE (11:36)
--- NOTE | 2018-08-24 12:12 | PCM.PCON ---
History of Present Illness - History of Present Illness History of Present Illness: Patient is a 83 year old female who came to the ER on 08/22/18 with EMS. [employer] workers found her in her apartment covered in feces. In the ER she also complained of SOB and abdominal pain. She was not able to provide a good history. She was admitted to ICU for Acute renal failure, respiratory failure , alcohol withdrawal, AMS. She is currently intubated on vent in ICU. PMH: Anxiety, arthritis, bipolar disorder, colonic polyps, COPD, Dementia, Depression, Fractures, HTN, Hypercholesterolemia, Squamous cell carcinoma of the mouth/neck, osteoporosis, PTSD, Schizophrenia Soc hx: Former smoker, ETOH user, Lives alone Fam hx: Unknown 08/22 CXR no interval pathology noted 08/[address]: No intracranial mass, hemmorhage, or evidence of acute infarct 08/23 Lactic acid 4.4 Review of Systems - Review of Systems Systems not reviewed;Unavailable: Acuity of Condition, Intubated Review of Systems: unable to obtain, patient is intubated and unresponsive Physical Exam - Constitutional Appears: Cachectic, Chronically Ill - Head Exam Head Exam: ATRAUMATIC, NORMAL INSPECTION, NORMOCEPHALIC - Eye Exam Pupil Exam: absent: PERRL - ENT Exam ENT Exam: Mucous Membranes Dry - Respiratory Exam Additional comments: intubated on mechanical ventilation - Cardiovascular Exam Cardiovascular Exam: REGULAR RHYTHM - GI/Abdominal Exam GI & Abdominal Exam: Soft - Extremities Exam Extremities exam: Positive for: pedal pulses present - Neurological Exam Additional comments: Unresponsive to voice and touch - Skin Skin Exam: Dry, Mottled, Pallor Additional comments: lower extremity toes cold and purple in color Palliative Care Assessment - Modified MRC Dyspnea Scale Modified MRC Dyspnea Scale: Too breathless to leave the house,or breathless dressing or undressing Grade: 5 - Pain Scale Pain Scale Used: unable to assess pain - Rodriguez Scale Sensory Perception: Completely Limited Moisture: Very Moist Activity: Bedfast Mobility: Completely Immobile Nutrition: Very Poor Friction & Shear: Problem Total Score - Skin Risk Assessment: 7 - Psychosocial Distress Patient screened for psychosocial distress: No Psychosocial Intervention(s): patient unresponsive and intubated Palliative Care - Goals Goal(s) of care: Called daughter Marj, Did not receive call back yet at this time to go over [facility]. Patient has poor prognosis at this time, Goals of care discussions to be held with family. Assessment & Plan - Assessment and Plan (Free Text) Assessment: There is no advanced directive in the chart Palliative Performance Scale 10% I reviewed medical records, diagnostic studies, and examined the patient at the bedside Impression Acute Respiratory failure\ Acute Renal Failure Suggestion Will have Goals of Care discussion with family Palliative care will remain on board as needed Time Spent with patient 40 min
[2018-08-24 12:19] LABS: INR 1.1; PROTHROMBIN TIME 12.8 Seconds (9.8-13.1)
[2018-08-24 12:21] LABS: PARTIAL THROMBOPLASTIN TIME 38.6 Seconds (25.6-37.1)
--- NOTE | 2018-08-24 12:34 | CP.PCM.CON ---
History of Present Illness - History of Present Illness History of Present Illness: Neurology follow up note. 73 yr old woman with what appears to be anoxic encephalopathy, now with minimal responsiveness even off sedation. SHe is pending MRI brain today and VEEG. There have been no witnessed seizures, no new findings. ROS; not obtainable due to patients mental status. On exam: Obtunded, doesnt move to sternal rub. ROving eye movements. no dolls eyes, strong gag. no corneals. +1 dtr ul and ll bl. Toes downgoing. No clonus. Gait cannot be tested. Past Patient History - Infectious Disease Hx of Infectious Diseases: None - Tetanus Immunizations Tetanus Immunization: Unknown - Past Medical History & Family History Past Medical History?: Yes - Past Social History Smoking Status: Former Smoker Alcohol: Other (Hx ETOH abuse) Home Situation {Lives}: Alone - CARDIAC Hx Cardiac Disorders: Yes Hx Congestive Heart Failure: No Hx Hypercholesterolemia: Yes Hx Hypertension: Yes - PULMONARY Hx Respiratory Disorders: Yes Hx Bronchitis: Yes Hx Chronic Obstructive Pulmonary Disease (COPD): Yes Hx Pneumonia: Yes - NEUROLOGICAL Hx Neurological Disorder: Yes Hx Dementia: Yes Hx Seizures: No Hx Transient Ischemic Attacks (TIA): No - HEENT Hx HEENT Problems: Yes Hx Cataracts: Yes - RENAL Hx Chronic Kidney Disease: No - ENDOCRINE/METABOLIC Hx Endocrine Disorders: No Hx Hypothyroidism: No - HEMATOLOGICAL/ONCOLOGICAL Hx Blood Disorders: No Hx Human Immunodeficiency Virus (HIV): No - INTEGUMENTARY Hx Dermatological Problems: Yes Hx Squamous Cell: Yes (No Chemo treatment; surgery 10 yrs ago at [place]) - MUSCULOSKELETAL/RHEUMATOLOGICAL Hx Musculoskeletal Disorders: Yes Hx Arthritis: Yes Hx Falls: Yes Hx Fractures: Yes (right wrist fracture, rib fx) Hx Osteoporosis: Yes Hx Rheumatoid Arthritis: No - GASTROINTESTINAL Hx Gastrointestinal Disorders: No - GENITOURINARY/GYNECOLOGICAL Hx Genitourinary Disorders: No Hx Sexually Transmitted Disorders: No - PSYCHIATRIC Hx Psychophysiologic Disorder: Yes Hx Anxiety: Yes Hx Bipolar Disorder: Yes Hx Depression: Yes Hx Post Traumatic Stress Disorder: Yes Hx Schizophrenia: Yes Hx Substance Use: No - SURGICAL HISTORY Hx Surgeries: Yes Hx Hysterectomy: Yes (Partial) Other/Comment: mouth and neck CA SX - ANESTHESIA Hx Anesthesia: Yes Hx Anesthesia Reactions: No Hx Malignant Hyperthermia: No Meds Allergies/Adverse Reactions: Allergies Allergy/AdvReac Type Severity Reaction Status Date / Time No Known Allergies Allergy Verified 08/22/18 14:40 - Medications Medications: Current Medications Acetaminophen (Tylenol 650 Mg Supp) 650 mg AK Q6 PRN PRN Reason: Fever >100.4 F Last Admin: 08/23/18 16:24 Dose: 650 mg Calcium Carbonate (Oscal) 500 mg PO TID [facility] Folic Acid (Folic Acid) 1 mg PO DAILY BHUPENDRA Last Admin: 08/24/18 11:25 Dose: 1 mg Heparin Sodium (Porcine) (Heparin) 5,000 units SC Q12 BHUPENDRA; Protocol Last Admin: 08/24/18 10:01 Dose: 5,000 units Piperacillin Sod/Tazobactam (Sod 2.25 gm/ Sodium Chloride) 100 mls @ 100 mls/hr IVPB Q8 BHUPENDRA; Protocol Last Admin: 08/24/18 10:01 Dose: 100 mls/hr Ceftriaxone Sodium 1 gm/ (Sodium Chloride) 100 mls @ 100 mls/hr IVPB DAILY [facility]; Protocol Last Admin: 08/24/18 10:01 Dose: 100 mls/hr Sodium Chloride (Sodium Chloride 0.9%) 1,000 mls @ 125 mls/hr IV .Q8H BHUPENDRA Stop: 08/25/18 11:29 Pantoprazole Sodium (Protonix Inj) 40 mg IVP DAILY [facility] Last Admin: 08/24/18 10:00 Dose: 40 mg Thiamine HCl (Vitamin B1 Inj) 100 mg IM DAILY [facility] Last Admin: 08/24/18 11:24 Dose: 100 mg Results - Vital Signs Recent Vital Signs: Last Vital Signs Temp 100 F H 08/24/18 07:41 Pulse 92 H 08/24/18 10:00 Resp 32 H 08/24/18 10:00 BP 141/91 H 08/24/18 10:00 Pulse Ox 100 08/24/18 07:41 - Labs Result Diagrams: 08/24/18 05:00 08/24/18 05:00 Labs: Laboratory Results - last 24 hr 08/23/18 08/23/18 08/23/18 07:09 09:25 09:25 WBC RBC Hgb Hct MCV MCH MCHC RDW Plt Count MPV Neut % (Auto) Lymph % (Auto) [place] % (Auto) Eos % (Auto) Baso % (Auto) Neut # (Auto) Lymph # (Auto) [place] # (Auto) Eos # (Auto) Baso # (Auto) Neutrophils % (Manual) Band Neutrophils % Lymphocytes % (Manual) Reactive Lymphs % Monocytes % (Manual) Metamyelocytes % Myelocytes % Nucleated RBC % Platelet Estimate Large Platelets Giant Platelets Poikilocytosis (manual Anisocytosis (manual) Macrocytosis (manual) Tear Drop Cells Ovalocytes PT INR APTT Fibrinogen pCO2 pO2 HCO3 ABG pH ABG Total CO2 ABG O2 Saturation ABG O2 Content ABG Base Excess ABG Hemoglobin ABG Carboxyhemoglobin POC ABG HHb (Measured) ABG Methemoglobin ABG O2 Capacity [place] Test A-a O2 Difference Hgb O2 Saturation Vent Mode Mechanical Rate FiO2 Tidal Volume PEEP Crit Value Called To Crit Value Called By Crit Value Read Back Blood Gas Notified Time Sodium Potassium Chloride Carbon Dioxide Anion Gap BUN Creatinine Est GFR ( Amer) Est GFR (Non-Af Amer) Random Glucose Lactic Acid Calcium Phosphorus Magnesium Total Bilirubin AST ALT Alkaline Phosphatase Total Creatine Kinase Total Protein Albumin Globulin Albumin/Globulin Ratio Stool Occult Blood Hep Bs Antigen Negative Hep Bs Antibody, Quant <5 L Hep B Core IgM Ab Negative Hepatitis C Antibody Negative 08/23/18 08/23/18 08/23/18 11:20 11:30 11:30 WBC RBC Hgb Hct MCV MCH MCHC RDW Plt Count MPV Neut % (Auto) Lymph % (Auto) [place] % (Auto) Eos % (Auto) Baso % (Auto) Neut # (Auto) Lymph # (Auto) [place] # (Auto) Eos # (Auto) Baso # (Auto) Neutrophils % (Manual) 35 L Band Neutrophils % 34 H* Lymphocytes % (Manual) 6 L Reactive Lymphs % 2 H Monocytes % (Manual) 12 H Metamyelocytes % 4 H Myelocytes % 7 H Nucleated RBC % 9 H Platelet Estimate Normal Large Platelets Present Giant Platelets Present Poikilocytosis (manual Slight Anisocytosis (manual) Slight Macrocytosis (manual) Slight Tear Drop Cells Slight Ovalocytes Slight PT INR APTT Fibrinogen pCO2 pO2 HCO3 ABG pH ABG Total CO2 ABG O2 Saturation ABG O2 Content ABG Base Excess ABG Hemoglobin ABG Carboxyhemoglobin POC ABG HHb (Measured) ABG Methemoglobin ABG O2 Capacity [place] Test A-a O2 Difference Hgb O2 Saturation Vent Mode Mechanical Rate FiO2 Tidal Volume PEEP Crit Value Called To Crit Value Called By Crit Value Read Back Blood Gas Notified Time Sodium Potassium Chloride Carbon Dioxide Anion Gap BUN 105 H* D Creatinine Est GFR ( Amer) Est GFR (Non-Af Amer) Random Glucose Lactic Acid Calcium 6.0 L* Phosphorus Magnesium Total Bilirubin AST ALT Alkaline Phosphatase Total Creatine Kinase Total Protein Albumin Globulin Albumin/Globulin Ratio Stool Occult Blood Positive H Hep Bs Antigen Hep Bs Antibody, Quant Hep B Core IgM Ab Hepatitis C Antibody 08/23/18 08/23/18 08/23/18 18:16 20:47 20:47 WBC 16.5 H D RBC 3.37 L Hgb 11.6 L Hct 34.6 MCV 102.5 H MCH 34.3 H MCHC 33.5 RDW 18.7 H Plt Count 106 L MPV 9.9 Neut % (Auto) 87.4 H Lymph % (Auto) 6.8 L [place] % (Auto) 5.4 Eos % (Auto) 0.2 Baso % (Auto) 0.2 Neut # (Auto) 14.4 H Lymph # (Auto) 1.1 [place] # (Auto) 0.9 H Eos # (Auto) 0.0 Baso # (Auto) 0.0 Neutrophils % (Manual) Band Neutrophils % Lymphocytes % (Manual) Reactive Lymphs % Monocytes % (Manual) Metamyelocytes % Myelocytes % Nucleated RBC % Platelet Estimate Large Platelets Giant Platelets Poikilocytosis (manual Anisocytosis (manual) Macrocytosis (manual) Tear Drop Cells Ovalocytes PT INR APTT Fibrinogen pCO2 pO2 HCO3 ABG pH ABG Total CO2 ABG O2 Saturation ABG O2 Content ABG Base Excess ABG Hemoglobin ABG Carboxyhemoglobin POC ABG HHb (Measured) ABG Methemoglobin ABG O2 Capacity [place] Test A-a O2 Difference Hgb O2 Saturation Vent Mode Mechanical Rate FiO2 Tidal Volume PEEP Crit Value Called To Crit Value Called By Crit Value Read Back Blood Gas Notified Time Sodium 143 Potassium 3.5 L Chloride 103 Carbon Dioxide 22 Anion Gap 22 H BUN 117 H* Creatinine 3.8 H Est GFR ( Amer) 14 Est GFR (Non-Af Amer) 12 Random Glucose 154 H Lactic Acid Calcium 6.2 L Phosphorus 3.9 Magnesium 1.6 Total Bilirubin 1.5 H AST 117 H D ALT 46 Alkaline Phosphatase 190 H Total Creatine Kinase 1151 H Total Protein 6.4 Albumin 3.3 L Globulin 3.0 Albumin/Globulin Ratio 1.1 Stool Occult Blood Hep Bs Antigen Hep Bs Antibody, Quant Hep B Core IgM Ab Hepatitis C Antibody 08/23/18 08/24/18 08/24/18 20:47 03:44 05:00 WBC 15.6 H RBC 3.21 L Hgb 10.9 L Hct 33.0 L MCV 102.6 H MCH 34.0 H MCHC 33.2 RDW 18.9 H Plt Count 85 L D MPV Neut % (Auto) Lymph % (Auto) [place] % (Auto) Eos % (Auto) Baso % (Auto) Neut # (Auto) Lymph # (Auto) [place] # (Auto) Eos # (Auto) Baso # (Auto) Neutrophils % (Manual) Band Neutrophils % Lymphocytes % (Manual) Reactive Lymphs % Monocytes % (Manual) Metamyelocytes % Myelocytes % Nucleated RBC % Platelet Estimate Large Platelets Giant Platelets Poikilocytosis (manual Anisocytosis (manual) Macrocytosis (manual) Tear Drop Cells Ovalocytes PT INR APTT Fibrinogen pCO2 28 L pO2 187 H HCO3 25.0 ABG pH 7.52 H ABG Total CO2 23.8 ABG O2 Saturation 99.8 H ABG O2 Content 8.8 L ABG Base Excess 0.1 ABG Hemoglobin 6.1 L ABG Carboxyhemoglobin 1.2 POC ABG HHb (Measured) 0.2 ABG Methemoglobin 2.3 ABG O2 Capacity 8.8 L [place]aro Test Yes A-a O2 Difference 206.0 Hgb O2 Saturation 96.3 Vent Mode A/c Mechanical Rate 12 FiO2 60.0 Tidal Volume 450 PEEP 5 Crit Value Called To Monserrat toscano rn Crit Value Called By 6075 Crit Value Read Back Y Blood Gas Notified Time 350 Sodium Potassium Chloride Carbon Dioxide Anion Gap BUN Creatinine Est GFR ( Amer) Est GFR (Non-Af Amer) Random Glucose Lactic Acid 4.4 H* Calcium Phosphorus Magnesium Total Bilirubin AST ALT Alkaline Phosphatase Total Creatine Kinase Total Protein Albumin Globulin Albumin/Globulin Ratio Stool Occult Blood Hep Bs Antigen Hep Bs Antibody, Quant Hep B Core IgM Ab Hepatitis C Antibody 08/24/18 08/24/18 05:00 11:50 WBC RBC Hgb Hct MCV MCH MCHC RDW Plt Count MPV Neut % (Auto) Lymph % (Auto) [place] % (Auto) Eos % (Auto) Baso % (Auto) Neut # (Auto) Lymph # (Auto) [place] # (Auto) Eos # (Auto) Baso # (Auto) Neutrophils % (Manual) Band Neutrophils % Lymphocytes % (Manual) Reactive Lymphs % Monocytes % (Manual) Metamyelocytes % Myelocytes % Nucleated RBC % Platelet Estimate Large Platelets Giant Platelets Poikilocytosis (manual Anisocytosis (manual) Macrocytosis (manual) Tear Drop Cells Ovalocytes PT 12.8 INR 1.1 APTT 38.6 H Fibrinogen 833 H* pCO2 pO2 HCO3 ABG pH ABG Total CO2 ABG O2 Saturation ABG O2 Content ABG Base Excess ABG Hemoglobin ABG Carboxyhemoglobin POC ABG HHb (Measured) ABG Methemoglobin ABG O2 Capacity [place] Test A-a O2 Difference Hgb O2 Saturation Vent Mode Mechanical Rate FiO2 Tidal Volume PEEP Crit Value Called To Crit Value Called By Crit Value Read Back Blood Gas Notified Time Sodium 144 Potassium 3.4 L Chloride 102 Carbon Dioxide 24 Anion Gap 21 H BUN 122 H* Creatinine 3.6 H Est GFR ( Amer) 15 Est GFR (Non-Af Amer) 12 Random Glucose 143 H Lactic Acid Calcium 5.7 L* Phosphorus Magnesium Total Bilirubin AST ALT Alkaline Phosphatase Total Creatine Kinase Total Protein Albumin Globulin Albumin/Globulin Ratio Stool Occult Blood Hep Bs Antigen Hep Bs Antibody, Quant Hep B Core IgM Ab Hepatitis C Antibody Assessment & Plan - Assessment and Plan (Free Text) Assessment: 73 yr old woman with anoxic encephalopathy and possible seizures. Plan: 1. MRI Brain without nadira 2. VEEG for [address] boateng Neurology.
--- NOTE | 2018-08-24 12:38 | CP.CCUPN ---
<Jennifer Mejia - Last Filed: 08/24/18 12:19> CCU Subjective - Physician Review Subjective (Free Text): Pt seen and examined this am with Dr. Lay. Unresponsive to painful stimulus, +Gag/Cough, Nystagmus Currently intubated on MV w/ FIO2 60% Receiving HD. Daughter at bedside. CCU Objective - Vital Signs / Intake & Output Vital Signs (Last 4 hours): Vital Signs Temp Pulse Resp BP Pulse Ox 08/24/18 07:41 100 F H 103 H 26 H 153/73 H 100 08/24/18 06:00 103 H 30 H 121/68 100 08/24/18 05:00 105 H 25 H 149/86 100 Intake and Output (Last 8hrs): Intake & Output 08/23/18 08/24/18 08/24/18 22:59 06:59 14:59 Intake Total 1175 926 Output Total 0 10 Balance 1175 916 Intake: IV 1075 826 Intake, Piggyback 100 100 Output: Urine 0 10 Urethral (Segal) 0 10 - Physical Exam Head: Positive for: Atraumatic, Normocephalic Pupils: Positive for: Other (no corneal reflex, no doll's eyes, + NYSTAGMUS ). Negative for: PERRL, Sluggish Extroacular Muscles: Positive for: EOMI Conjunctiva: Positive for: Normal. Negative for: Injected, Icteric Neck: Positive for: Normal Range of Motion, Trachea Midline. Negative for: Meningeal Signs, MIDLINE TENDERNESS, Paraspinal Tenderness, JVD, Lympha denopathy, Bruit, Other Respiratory/Chest: Positive for: Decreased Breath Sounds, Rhonchi. Negative for: Respiratory Distress, Accessory Muscle Use Cardiovascular: Positive for: Regular Rate and Rhythm, Normal S1, S2, Peripheal Pulses Present. Negative for: Murmurs, Irregular Rhythm Abdomen: Positive for: Normal Bowel Sounds. Negative for: Distention Lower Extremity: Positive for: Other (+Mottling +cyanotic toes) Neurological: Negative for: GCS=15, CN II-XII Intact, Speech Normal Psychiatric: Negative for: Alert, Oriented x 3 (Patient is unresponsive to painful stimuli, no corneal reflex, no doll's eyes) - Medications Active Medications: Active Medications Generic Name Dose Route Start Last Admin Trade Name Freq PRN Reason Stop Dose Admin Acetaminophen 650 mg 08/22/18 23:49 08/23/18 16:24 Tylenol 650 Mg Supp ME 650 mg Q6 PRN Administration Fever >100.4 F Heparin Sodium (Porcine) 5,000 units 08/23/18 21:00 08/23/18 21:30 Heparin SC 5,000 units Q12 BHUPENDRA Administration Protocol Piperacillin Sod/Tazobactam 100 mls @ 100 mls/hr 08/23/18 01:00 08/24/18 00:31 Sod 2.25 gm/ Sodium Chloride IVPB 100 mls/hr Q8 BHUPENDRA Administration Protocol Ceftriaxone Sodium 1 gm/ 100 mls @ 100 mls/hr 08/23/18 09:00 08/23/18 09:15 Sodium Chloride IVPB 100 mls/hr DAILY BHUPENDRA Administration Protocol Pantoprazole Sodium 40 mg 08/23/18 17:00 08/23/18 18:24 Protonix Inj IVP 40 mg DAILY BHUPENDRA Administration - Patient Studies Lab Studies: Microbiology Studies 08/22/18 16:14 Blood Culture - Preliminary Blood-Venous NO GROWTH AFTER 24 HOURS 08/22/18 15:50 Blood Culture - Preliminary Blood-Venous NO GROWTH AFTER 24 HOURS Lab Studies 08/24/18 08/24/18 08/24/18 Range/Units 05:00 05:00 03:44 WBC 15.6 H (4.8-10.8) K/uL RBC 3.21 L (3.80-5.20) Mil/uL Hgb 10.9 L (12.0-16.0) g/dL Hct 33.0 L (34.0-47.0) % MCV 102.6 H (81.0-99.0) fl MCH 34.0 H (27.0-31.0) pg MCHC 33.2 (33.0-37.0) g/dL RDW 18.9 H (11.5-14.5) % Plt Count 85 L D (130-400) K/uL MPV (7.2-11.7) fl Neut % (Auto) (50.0-75.0) % Lymph % (Auto) (20.0-40.0) % Vernon % (Auto) (0.0-10.0) % Eos % (Auto) (0.0-4.0) % Baso % (Auto) (0.0-2.0) % Neut # (Auto) (1.8-7.0) K/uL Lymph # (Auto) (1.0-4.3) K/uL Vernon # (Auto) (0.0-0.8) K/uL Eos # (Auto) (0.0-0.7) K/uL Baso # (Auto) (0.0-0.2) K/uL Neutrophils % (Manual) (42-75) % Band Neutrophils % (0-2) % Lymphocytes % (Manual) (20-50) % Reactive Lymphs % (0-0) % Monocytes % (Manual) (0-10) % Metamyelocytes % (0-0) % Myelocytes % (0-0) % Nucleated RBC % (0-0) % Platelet Estimate (NORMAL) Large Platelets Giant Platelets Poikilocytosis (manual Anisocytosis (manual) Macrocytosis (manual) Tear Drop Cells Ovalocytes pCO2 28 L (35-45) mm/Hg pO2 187 H (80-100) mm/Hg HCO3 25.0 (21-28) mmol/L ABG pH 7.52 H (7.35-7.45) ABG Total CO2 23.8 (22-28) mmol/L ABG O2 Saturation 99.8 H (95-98) % ABG O2 Content 8.8 L (15-23) ML/dL ABG Base Excess 0.1 (-2.0-3.0) mmol/L ABG Hemoglobin 6.1 L (11.7-17.4) g/dL ABG Carboxyhemoglobin 1.2 (0.5-1.5) % POC ABG HHb (Measured) 0.2 (0.0-5.0) % ABG Methemoglobin 2.3 (0.0-3.0) % ABG O2 Capacity 8.8 L (16-24) mL/dL Genaro Test Yes A-a O2 Difference 206.0 mm/Hg Hgb O2 Saturation 96.3 (95.0-98.0) % Vent Mode A/c Mechanical Rate 12 FiO2 60.0 % Tidal Volume 450 PEEP 5 Crit Value Called To Monserrat toscano rn Crit Value Called By 6075 Crit Value Read Back Y Blood Gas Notified Time 350 Sodium 144 (132-148) mmol/l Potassium 3.4 L (3.6-5.0) MMOL/L Chloride 102 (98-107) mmol/L Carbon Dioxide 24 (22-30) mmol/L Anion Gap 21 H (10-20) BUN 122 H* (7-17) mg/dl Creatinine 3.6 H (0.7-1.2) mg/dl Est GFR ( Amer) 15 Est GFR (Non-Af Amer) 12 Random Glucose 143 H (65-105) mg/dL Serum Osmolality (272-300) mosm/kg Lactic Acid (0.7-2.1) mmol/L Calcium 5.7 L* (8.4-10.2) mg/dL Phosphorus (2.5-4.5) mg/dl Magnesium (1.6-2.3) MG/DL Total Bilirubin (0.2-1.3) mg/dl AST (14-36) U/L ALT (9-52) U/L Alkaline Phosphatase (38-126) U/L Total Creatine Kinase (30-135) U/L Total Protein (6.3-8.2) G/DL Albumin (3.5-5.0) g/dL Globulin (2.2-3.9) gm/dL Albumin/Globulin Ratio (1.0-2.1) Stool Occult Blood (NEGATIVE) Urine Opiates Screen (NEGATIVE) Urine Methadone Screen (NEGATIVE) Ur Barbiturates Screen (NEGATIVE) Ur Phencyclidine Scrn (NEGATIVE) Ur Amphetamines Screen (NEGATIVE) U Benzodiazepines Scrn (NEGATIVE) U Oth Cocaine Metabols (NEGATIVE) U Cannabinoids Screen (NEGATIVE) Hep Bs Antigen (NEGATIVE) Hep B Core IgM Ab (NEGATIVE) Hepatitis C Antibody (NEGATIVE) 08/23/18 08/23/18 08/23/18 Range/Units 20:47 20:47 20:47 WBC 16.5 H D (4.8-10.8) K/uL RBC 3.37 L (3.80-5.20) Mil/uL Hgb 11.6 L (12.0-16.0) g/dL Hct 34.6 (34.0-47.0) % MCV 102.5 H (81.0-99.0) fl MCH 34.3 H (27.0-31.0) pg MCHC 33.5 (33.0-37.0) g/dL RDW 18.7 H (11.5-14.5) % Plt Count 106 L (130-400) K/uL MPV 9.9 (7.2-11.7) fl Neut % (Auto) 87.4 H (50.0-75.0) % Lymph % (Auto) 6.8 L (20.0-40.0) % Vernon % (Auto) 5.4 (0.0-10.0) % Eos % (Auto) 0.2 (0.0-4.0) % Baso % (Auto) 0.2 (0.0-2.0) % Neut # (Auto) 14.4 H (1.8-7.0) K/uL Lymph # (Auto) 1.1 (1.0-4.3) K/uL Vernon # (Auto) 0.9 H (0.0-0.8) K/uL Eos # (Auto) 0.0 (0.0-0.7) K/uL Baso # (Auto) 0.0 (0.0-0.2) K/uL Neutrophils % (Manual) (42-75) % Band Neutrophils % (0-2) % Lymphocytes % (Manual) (20-50) % Reactive Lymphs % (0-0) % Monocytes % (Manual) (0-10) % Metamyelocytes % (0-0) % Myelocytes % (0-0) % Nucleated RBC % (0-0) % Platelet Estimate (NORMAL) Large Platelets Giant Platelets Poikilocytosis (manual Anisocytosis (manual) Macrocytosis (manual) Tear Drop Cells Ovalocytes pCO2 (35-45) mm/Hg pO2 (80-100) mm/Hg HCO3 (21-28) mmol/L ABG pH (7.35-7.45) ABG Total CO2 (22-28) mmol/L ABG O2 Saturation (95-98) % ABG O2 Content (15-23) ML/dL ABG Base Excess (-2.0-3.0) mmol/L ABG Hemoglobin (11.7-17.4) g/dL ABG Carboxyhemoglobin (0.5-1.5) % POC ABG HHb (Measured) (0.0-5.0) % ABG Methemoglobin (0.0-3.0) % ABG O2 Capacity (16-24) mL/dL Genaro Test A-a O2 Difference mm/Hg Hgb O2 Saturation (95.0-98.0) % Vent Mode Mechanical Rate FiO2 % Tidal Volume PEEP Crit Value Called To Crit Value Called By Crit Value Read Back Blood Gas Notified Time Sodium 143 (132-148) mmol/l Potassium 3.5 L (3.6-5.0) MMOL/L Chloride 103 (98-107) mmol/L Carbon Dioxide 22 (22-30) mmol/L Anion Gap 22 H (10-20) BUN 117 H* (7-17) mg/dl Creatinine 3.8 H (0.7-1.2) mg/dl Est GFR ( Amer) 14 Est GFR (Non-Af Amer) 12 Random Glucose 154 H (65-105) mg/dL Serum Osmolality (272-300) mosm/kg Lactic Acid 4.4 H* (0.7-2.1) mmol/L Calcium 6.2 L (8.4-10.2) mg/dL Phosphorus 3.9 (2.5-4.5) mg/dl Magnesium 1.6 (1.6-2.3) MG/DL Total Bilirubin 1.5 H (0.2-1.3) mg/dl AST 117 H D (14-36) U/L ALT 46 (9-52) U/L Alkaline Phosphatase 190 H (38-126) U/L Total Creatine Kinase (30-135) U/L Total Protein 6.4 (6.3-8.2) G/DL Albumin 3.3 L (3.5-5.0) g/dL Globulin 3.0 (2.2-3.9) gm/dL Albumin/Globulin Ratio 1.1 (1.0-2.1) Stool Occult Blood (NEGATIVE) Urine Opiates Screen (NEGATIVE) Urine Methadone Screen (NEGATIVE) Ur Barbiturates Screen (NEGATIVE) Ur Phencyclidine Scrn (NEGATIVE) Ur Amphetamines Screen (NEGATIVE) U Benzodiazepines Scrn (NEGATIVE) U Oth Cocaine Metabols (NEGATIVE) U Cannabinoids Screen (NEGATIVE) Hep Bs Antigen (NEGATIVE) Hep B Core IgM Ab (NEGATIVE) Hepatitis C Antibody (NEGATIVE) 08/23/18 08/23/18 08/23/18 Range/Units 18:16 11:30 11:30 WBC 9.7 D (4.8-10.8) K/uL RBC 3.17 L (3.80-5.20) Mil/uL Hgb 11.0 L (12.0-16.0) g/dL Hct 33.1 L (34.0-47.0) % MCV 104.1 H (81.0-99.0) fl MCH 34.6 H (27.0-31.0) pg MCHC 33.3 (33.0-37.0) g/dL RDW 18.9 H (11.5-14.5) % Plt Count 121 L (130-400) K/uL MPV 10.4 (7.2-11.7) fl Neut % (Auto) 82.9 H (50.0-75.0) % Lymph % (Auto) 9.1 L (20.0-40.0) % Vernon % (Auto) 7.6 (0.0-10.0) % Eos % (Auto) 0.3 (0.0-4.0) % Baso % (Auto) 0.1 (0.0-2.0) % Neut # (Auto) 8.1 H (1.8-7.0) K/uL Lymph # (Auto) 0.9 L (1.0-4.3) K/uL Vernon # (Auto) 0.7 (0.0-0.8) K/uL Eos # (Auto) 0.0 (0.0-0.7) K/uL Baso # (Auto) 0.0 (0.0-0.2) K/uL Neutrophils % (Manual) 35 L (42-75) % Band Neutrophils % 34 H* (0-2) % Lymphocytes % (Manual) 6 L (20-50) % Reactive Lymphs % 2 H (0-0) % Monocytes % (Manual) 12 H (0-10) % Metamyelocytes % 4 H (0-0) % Myelocytes % 7 H (0-0) % Nucleated RBC % 9 H (0-0) % Platelet Estimate Normal (NORMAL) Large Platelets Present Giant Platelets Present Poikilocytosis (manual Slight Anisocytosis (manual) Slight Macrocytosis (manual) Slight Tear Drop Cells Slight Ovalocytes Slight pCO2 (35-45) mm/Hg pO2 (80-100) mm/Hg HCO3 (21-28) mmol/L ABG pH (7.35-7.45) ABG Total CO2 (22-28) mmol/L ABG O2 Saturation (95-98) % ABG O2 Content (15-23) ML/dL ABG Base Excess (-2.0-3.0) mmol/L ABG Hemoglobin (11.7-17.4) g/dL ABG Carboxyhemoglobin (0.5-1.5) % POC ABG HHb (Measured) (0.0-5.0) % ABG Methemoglobin (0.0-3.0) % ABG O2 Capacity (16-24) mL/dL Genaro Test A-a O2 Difference mm/Hg Hgb O2 Saturation (95.0-98.0) % Vent Mode Mechanical Rate FiO2 % Tidal Volume PEEP Crit Value Called To Crit Value Called By Crit Value Read Back Blood Gas Notified Time Sodium 146 (132-148) mmol/l Potassium 3.6 (3.6-5.0) MMOL/L Chloride 106 (98-107) mmol/L Carbon Dioxide 20 L (22-30) mmol/L Anion Gap 24 H (10-20) BUN 105 H* D (7-17) mg/dl Creatinine 3.1 H (0.7-1.2) mg/dl Est GFR ( Amer) 18 Est GFR (Non-Af Amer) 15 Random Glucose 177 H (65-105) mg/dL Serum Osmolality (272-300) mosm/kg Lactic Acid (0.7-2.1) mmol/L Calcium 6.0 L* (8.4-10.2) mg/dL Phosphorus 6.0 H (2.5-4.5) mg/dl Magnesium 1.8 (1.6-2.3) MG/DL Total Bilirubin 1.5 H (0.2-1.3) mg/dl AST 94 H D (14-36) U/L ALT 44 (9-52) U/L Alkaline Phosphatase 189 H (38-126) U/L Total Creatine Kinase 1151 H (30-135) U/L Total Protein 6.2 L (6.3-8.2) G/DL Albumin 3.2 L (3.5-5.0) g/dL Globulin 3.0 (2.2-3.9) gm/dL Albumin/Globulin Ratio 1.1 (1.0-2.1) Stool Occult Blood (NEGATIVE) Urine Opiates Screen (NEGATIVE) Urine Methadone Screen (NEGATIVE) Ur Barbiturates Screen (NEGATIVE) Ur Phencyclidine Scrn (NEGATIVE) Ur Amphetamines Screen (NEGATIVE) U Benzodiazepines Scrn (NEGATIVE) U Oth Cocaine Metabols (NEGATIVE) U Cannabinoids Screen (NEGATIVE) Hep Bs Antigen (NEGATIVE) Hep B Core IgM Ab (NEGATIVE) Hepatitis C Antibody (NEGATIVE) 08/23/18 08/23/18 08/23/18 Range/Units 11:20 11:00 09:25 WBC (4.8-10.8) K/uL RBC (3.80-5.20) Mil/uL Hgb (12.0-16.0) g/dL Hct (34.0-47.0) % MCV (81.0-99.0) fl MCH (27.0-31.0) pg MCHC (33.0-37.0) g/dL RDW (11.5-14.5) % Plt Count (130-400) K/uL MPV (7.2-11.7) fl Neut % (Auto) (50.0-75.0) % Lymph % (Auto) (20.0-40.0) % Vernon % (Auto) (0.0-10.0) % Eos % (Auto) (0.0-4.0) % Baso % (Auto) (0.0-2.0) % Neut # (Auto) (1.8-7.0) K/uL Lymph # (Auto) (1.0-4.3) K/uL Vernon # (Auto) (0.0-0.8) K/uL Eos # (Auto) (0.0-0.7) K/uL Baso # (Auto) (0.0-0.2) K/uL Neutrophils % (Manual) (42-75) % Band Neutrophils % (0-2) % Lymphocytes % (Manual) (20-50) % Reactive Lymphs % (0-0) % Monocytes % (Manual) (0-10) % Metamyelocytes % (0-0) % Myelocytes % (0-0) % Nucleated RBC % (0-0) % Platelet Estimate (NORMAL) Large Platelets Giant Platelets Poikilocytosis (manual Anisocytosis (manual) Macrocytosis (manual) Tear Drop Cells Ovalocytes pCO2 (35-45) mm/Hg pO2 (80-100) mm/Hg HCO3 (21-28) mmol/L ABG pH (7.35-7.45) ABG Total CO2 (22-28) mmol/L ABG O2 Saturation (95-98) % ABG O2 Content (15-23) ML/dL ABG Base Excess (-2.0-3.0) mmol/L ABG Hemoglobin (11.7-17.4) g/dL ABG Carboxyhemoglobin (0.5-1.5) % POC ABG HHb (Measured) (0.0-5.0) % ABG Methemoglobin (0.0-3.0) % ABG O2 Capacity (16-24) mL/dL Genaro Test A-a O2 Difference mm/Hg Hgb O2 Saturation (95.0-98.0) % Vent Mode Mechanical Rate FiO2 % Tidal Volume PEEP Crit Value Called To Crit Value Called By Crit Value Read Back Blood Gas Notified Time Sodium (132-148) mmol/l Potassium (3.6-5.0) MMOL/L Chloride (98-107) mmol/L Carbon Dioxide (22-30) mmol/L Anion Gap (10-20) BUN (7-17) mg/dl Creatinine (0.7-1.2) mg/dl Est GFR ( Amer) Est GFR (Non-Af Amer) Random Glucose (65-105) mg/dL Serum Osmolality 356 H (272-300) mosm/kg Lactic Acid (0.7-2.1) mmol/L Calcium (8.4-10.2) mg/dL Phosphorus (2.5-4.5) mg/dl Magnesium (1.6-2.3) MG/DL Total Bilirubin (0.2-1.3) mg/dl AST (14-36) U/L ALT (9-52) U/L Alkaline Phosphatase (38-126) U/L Total Creatine Kinase (30-135) U/L Total Protein (6.3-8.2) G/DL Albumin (3.5-5.0) g/dL Globulin (2.2-3.9) gm/dL Albumin/Globulin Ratio (1.0-2.1) Stool Occult Blood Positive H (NEGATIVE) Urine Opiates Screen Negative (NEGATIVE) Urine Methadone Screen Negative (NEGATIVE) Ur Barbiturates Screen Negative (NEGATIVE) Ur Phencyclidine Scrn Negative (NEGATIVE) Ur Amphetamines Screen Negative (NEGATIVE) U Benzodiazepines Scrn Positive (NEGATIVE) U Oth Cocaine Metabols Negative (NEGATIVE) U Cannabinoids Screen Negative (NEGATIVE) Hep Bs Antigen (NEGATIVE) Hep B Core IgM Ab (NEGATIVE) Hepatitis C Antibody (NEGATIVE) 08/23/18 08/23/18 08/23/18 Range/Units 09:25 07:09 04:40 WBC (4.8-10.8) K/uL RBC (3.80-5.20) Mil/uL Hgb (12.0-16.0) g/dL Hct (34.0-47.0) % MCV (81.0-99.0) fl MCH (27.0-31.0) pg MCHC (33.0-37.0) g/dL RDW (11.5-14.5) % Plt Count 112 L D (130-400) K/uL MPV (7.2-11.7) fl Neut % (Auto) (50.0-75.0) % Lymph % (Auto) (20.0-40.0) % Vernon % (Auto) (0.0-10.0) % Eos % (Auto) (0.0-4.0) % Baso % (Auto) (0.0-2.0) % Neut # (Auto) (1.8-7.0) K/uL Lymph # (Auto) (1.0-4.3) K/uL Vernon # (Auto) (0.0-0.8) K/uL Eos # (Auto) (0.0-0.7) K/uL Baso # (Auto) (0.0-0.2) K/uL Neutrophils % (Manual) (42-75) % Band Neutrophils % (0-2) % Lymphocytes % (Manual) (20-50) % Reactive Lymphs % (0-0) % Monocytes % (Manual) (0-10) % Metamyelocytes % (0-0) % Myelocytes % (0-0) % Nucleated RBC % (0-0) % Platelet Estimate (NORMAL) Large Platelets Giant Platelets Poikilocytosis (manual Anisocytosis (manual) Macrocytosis (manual) Tear Drop Cells Ovalocytes pCO2 (35-45) mm/Hg pO2 (80-100) mm/Hg HCO3 (21-28) mmol/L ABG pH (7.35-7.45) ABG Total CO2 (22-28) mmol/L ABG O2 Saturation (95-98) % ABG O2 Content (15-23) ML/dL ABG Base Excess (-2.0-3.0) mmol/L ABG Hemoglobin (11.7-17.4) g/dL ABG Carboxyhemoglobin (0.5-1.5) % POC ABG HHb (Measured) (0.0-5.0) % ABG Methemoglobin (0.0-3.0) % ABG O2 Capacity (16-24) mL/dL Genaro Test A-a O2 Difference mm/Hg Hgb O2 Saturation (95.0-98.0) % Vent Mode Mechanical Rate FiO2 % Tidal Volume PEEP Crit Value Called To Crit Value Called By Crit Value Read Back Blood Gas Notified Time Sodium (132-148) mmol/l Potassium (3.6-5.0) MMOL/L Chloride (98-107) mmol/L Carbon Dioxide (22-30) mmol/L Anion Gap (10-20) BUN (7-17) mg/dl Creatinine (0.7-1.2) mg/dl Est GFR ( Amer) Est GFR (Non-Af Amer) Random Glucose (65-105) mg/dL Serum Osmolality (272-300) mosm/kg Lactic Acid (0.7-2.1) mmol/L Calcium (8.4-10.2) mg/dL Phosphorus (2.5-4.5) mg/dl Magnesium (1.6-2.3) MG/DL Total Bilirubin (0.2-1.3) mg/dl AST (14-36) U/L ALT (9-52) U/L Alkaline Phosphatase (38-126) U/L Total Creatine Kinase (30-135) U/L Total Protein (6.3-8.2) G/DL Albumin (3.5-5.0) g/dL Globulin (2.2-3.9) gm/dL Albumin/Globulin Ratio (1.0-2.1) Stool Occult Blood (NEGATIVE) Urine Opiates Screen (NEGATIVE) Urine Methadone Screen (NEGATIVE) Ur Barbiturates Screen (NEGATIVE) Ur Phencyclidine Scrn (NEGATIVE) Ur Amphetamines Screen (NEGATIVE) U Benzodiazepines Scrn (NEGATIVE) U Oth Cocaine Metabols (NEGATIVE) U Cannabinoids Screen (NEGATIVE) Hep Bs Antigen Negative (NEGATIVE) Hep B Core IgM Ab Negative (NEGATIVE) Hepatitis C Antibody Negative (NEGATIVE) Laboratory Results - last 24 hr 08/23/18 08/23/18 08/23/18 04:40 07:09 09:25 WBC RBC Hgb Hct MCV MCH MCHC RDW Plt Count 112 L D MPV Neut % (Auto) Lymph % (Auto) Vernon % (Auto) Eos % (Auto) Baso % (Auto) Neut # (Auto) Lymph # (Auto) Vernon # (Auto) Eos # (Auto) Baso # (Auto) Neutrophils % (Manual) Band Neutrophils % Lymphocytes % (Manual) Reactive Lymphs % Monocytes % (Manual) Metamyelocytes % Myelocytes % Nucleated RBC % Platelet Estimate Large Platelets Giant Platelets Poikilocytosis (manual Anisocytosis (manual) Macrocytosis (manual) Tear Drop Cells Ovalocytes pCO2 pO2 HCO3 ABG pH ABG Total CO2 ABG O2 Saturation ABG O2 Content ABG Base Excess ABG Hemoglobin ABG Carboxyhemoglobin POC ABG HHb (Measured) ABG Methemoglobin ABG O2 Capacity Genaro Test A-a O2 Difference Hgb O2 Saturation Vent Mode Mechanical Rate FiO2 Tidal Volume PEEP Crit Value Called To Crit Value Called By Crit Value Read Back Blood Gas Notified Time Sodium Potassium Chloride Carbon Dioxide Anion Gap BUN Creatinine Est GFR ( Amer) Est GFR (Non-Af Amer) Random Glucose Serum Osmolality Lactic Acid Calcium Phosphorus Magnesium Total Bilirubin AST ALT Alkaline Phosphatase Total Creatine Kinase Total Protein Albumin Globulin Albumin/Globulin Ratio Stool Occult Blood Urine Opiates Screen Urine Methadone Screen Ur Barbiturates Screen Ur Phencyclidine Scrn Ur Amphetamines Screen U Benzodiazepines Scrn U Oth Cocaine Metabols U Cannabinoids Screen Hep Bs Antigen Negative Hep B Core IgM Ab Negative Hepatitis C Antibody Negative 08/23/18 08/23/18 08/23/18 09:25 11:00 11:20 WBC RBC Hgb Hct MCV MCH MCHC RDW Plt Count MPV Neut % (Auto) Lymph % (Auto) Vernon % (Auto) Eos % (Auto) Baso % (Auto) Neut # (Auto) Lymph # (Auto) Vernon # (Auto) Eos # (Auto) Baso # (Auto) Neutrophils % (Manual) Band Neutrophils % Lymphocytes % (Manual) Reactive Lymphs % Monocytes % (Manual) Metamyelocytes % Myelocytes % Nucleated RBC % Platelet Estimate Large Platelets Giant Platelets Poikilocytosis (manual Anisocytosis (manual) Macrocytosis (manual) Tear Drop Cells Ovalocytes pCO2 pO2 HCO3 ABG pH ABG Total CO2 ABG O2 Saturation ABG O2 Content ABG Base Excess ABG Hemoglobin ABG Carboxyhemoglobin POC ABG HHb (Measured) ABG Methemoglobin ABG O2 Capacity Genaro Test A-a O2 Difference Hgb O2 Saturation Vent Mode Mechanical Rate FiO2 Tidal Volume PEEP Crit Value Called To Crit Value Called By Crit Value Read Back Blood Gas Notified Time Sodium Potassium Chloride Carbon Dioxide Anion Gap BUN Creatinine Est GFR ( Amer) Est GFR (Non-Af Amer) Random Glucose Serum Osmolality 356 H Lactic Acid Calcium Phosphorus Magnesium Total Bilirubin AST ALT Alkaline Phosphatase Total Creatine Kinase Total Protein Albumin Globulin Albumin/Globulin Ratio Stool Occult Blood Positive H Urine Opiates Screen Negative Urine Methadone Screen Negative Ur Barbiturates Screen Negative Ur Phencyclidine Scrn Negative Ur Amphetamines Screen Negative U Benzodiazepines Scrn Positive U Oth Cocaine Metabols Negative U Cannabinoids Screen Negative Hep Bs Antigen Hep B Core IgM Ab Hepatitis C Antibody 08/23/18 08/23/18 08/23/18 11:30 11:30 18:16 WBC 9.7 D RBC 3.17 L Hgb 11.0 L Hct 33.1 L MCV 104.1 H MCH 34.6 H MCHC 33.3 RDW 18.9 H Plt Count 121 L MPV 10.4 Neut % (Auto) 82.9 H Lymph % (Auto) 9.1 L Vernon % (Auto) 7.6 Eos % (Auto) 0.3 Baso % (Auto) 0.1 Neut # (Auto) 8.1 H Lymph # (Auto) 0.9 L Vernon # (Auto) 0.7 Eos # (Auto) 0.0 Baso # (Auto) 0.0 Neutrophils % (Manual) 35 L Band Neutrophils % 34 H* Lymphocytes % (Manual) 6 L Reactive Lymphs % 2 H Monocytes % (Manual) 12 H Metamyelocytes % 4 H Myelocytes % 7 H Nucleated RBC % 9 H Platelet Estimate Normal Large Platelets Present Giant Platelets Present Poikilocytosis (manual Slight Anisocytosis (manual) Slight Macrocytosis (manual) Slight Tear Drop Cells Slight Ovalocytes Slight pCO2 pO2 HCO3 ABG pH ABG Total CO2 ABG O2 Saturation ABG O2 Content ABG Base Excess ABG Hemoglobin ABG Carboxyhemoglobin POC ABG HHb (Measured) ABG Methemoglobin ABG O2 Capacity Genaro Test A-a O2 Difference Hgb O2 Saturation Vent Mode Mechanical Rate FiO2 Tidal Volume PEEP Crit Value Called To Crit Value Called By Crit Value Read Back Blood Gas Notified Time Sodium 146 Potassium 3.6 Chloride 106 Carbon Dioxide 20 L Anion Gap 24 H BUN 105 H* D Creatinine 3.1 H Est GFR ( Amer) 18 Est GFR (Non-Af Amer) 15 Random Glucose 177 H Serum Osmolality Lactic Acid Calcium 6.0 L* Phosphorus 6.0 H Magnesium 1.8 Total Bilirubin 1.5 H AST 94 H D ALT 44 Alkaline Phosphatase 189 H Total Creatine Kinase 1151 H Total Protein 6.2 L Albumin 3.2 L Globulin 3.0 Albumin/Globulin Ratio 1.1 Stool Occult Blood Urine Opiates Screen Urine Methadone Screen Ur Barbiturates Screen Ur Phencyclidine Scrn Ur Amphetamines Screen U Benzodiazepines Scrn U Oth Cocaine Metabols U Cannabinoids Screen Hep Bs Antigen Hep B Core IgM Ab Hepatitis C Antibody 08/23/18 08/23/18 08/23/18 20:47 20:47 20:47 WBC 16.5 H D RBC 3.37 L Hgb 11.6 L Hct 34.6 MCV 102.5 H MCH 34.3 H MCHC 33.5 RDW 18.7 H Plt Count 106 L MPV 9.9 Neut % (Auto) 87.4 H Lymph % (Auto) 6.8 L Vernon % (Auto) 5.4 Eos % (Auto) 0.2 Baso % (Auto) 0.2 Neut # (Auto) 14.4 H Lymph # (Auto) 1.1 Vernon # (Auto) 0.9 H Eos # (Auto) 0.0 Baso # (Auto) 0.0 Neutrophils % (Manual) Band Neutrophils % Lymphocytes % (Manual) Reactive Lymphs % Monocytes % (Manual) Metamyelocytes % Myelocytes % Nucleated RBC % Platelet Estimate Large Platelets Giant Platelets Poikilocytosis (manual Anisocytosis (manual) Macrocytosis (manual) Tear Drop Cells Ovalocytes pCO2 pO2 HCO3 ABG pH ABG Total CO2 ABG O2 Saturation ABG O2 Content ABG Base Excess ABG Hemoglobin ABG Carboxyhemoglobin POC ABG HHb (Measured) ABG Methemoglobin ABG O2 Capacity [place]aro Test A-a O2 Difference Hgb O2 Saturation Vent Mode Mechanical Rate FiO2 Tidal Volume PEEP Crit Value Called To Crit Value Called By Crit Value Read Back Blood Gas Notified Time Sodium 143 Potassium 3.5 L Chloride 103 Carbon Dioxide 22 Anion Gap 22 H BUN 117 H* Creatinine 3.8 H Est GFR ( Amer) 14 Est GFR (Non-Af Amer) 12 Random Glucose 154 H Serum Osmolality Lactic Acid 4.4 H* Calcium 6.2 L Phosphorus 3.9 Magnesium 1.6 Total Bilirubin 1.5 H AST 117 H D ALT 46 Alkaline Phosphatase 190 H Total Creatine Kinase Total Protein 6.4 Albumin 3.3 L Globulin 3.0 Albumin/Globulin Ratio 1.1 Stool Occult Blood Urine Opiates Screen Urine Methadone Screen Ur Barbiturates Screen Ur Phencyclidine Scrn Ur Amphetamines Screen U Benzodiazepines Scrn U Oth Cocaine Metabols U Cannabinoids Screen Hep Bs Antigen Hep B Core IgM Ab Hepatitis C Antibody 08/24/18 08/24/18 08/24/18 03:44 05:00 05:00 WBC 15.6 H RBC 3.21 L Hgb 10.9 L Hct 33.0 L MCV 102.6 H MCH 34.0 H MCHC 33.2 RDW 18.9 H Plt Count 85 L D MPV Neut % (Auto) Lymph % (Auto) Vernon % (Auto) Eos % (Auto) Baso % (Auto) Neut # (Auto) Lymph # (Auto) Vernon # (Auto) Eos # (Auto) Baso # (Auto) Neutrophils % (Manual) Band Neutrophils % Lymphocytes % (Manual) Reactive Lymphs % Monocytes % (Manual) Metamyelocytes % Myelocytes % Nucleated RBC % Platelet Estimate Large Platelets Giant Platelets Poikilocytosis (manual Anisocytosis (manual) Macrocytosis (manual) Tear Drop Cells Ovalocytes pCO2 28 L pO2 187 H HCO3 25.0 ABG pH 7.52 H ABG Total CO2 23.8 ABG O2 Saturation 99.8 H ABG O2 Content 8.8 L ABG Base Excess 0.1 ABG Hemoglobin 6.1 L ABG Carboxyhemoglobin 1.2 POC ABG HHb (Measured) 0.2 ABG Methemoglobin 2.3 ABG O2 Capacity 8.8 L Genaro Test Yes A-a O2 Difference 206.0 Hgb O2 Saturation 96.3 Vent Mode A/c Mechanical Rate 12 FiO2 60.0 Tidal Volume 450 PEEP 5 Crit Value Called To Monserrat toscano rn Crit Value Called By [id number] Crit Value Read Back Y Blood Gas Notified Time 350 Sodium 144 Potassium 3.4 L Chloride 102 Carbon Dioxide 24 Anion Gap 21 H BUN 122 H* Creatinine 3.6 H Est GFR ( Amer) 15 Est GFR (Non-Af Amer) 12 Random Glucose 143 H Serum Osmolality Lactic Acid Calcium 5.7 L* Phosphorus Magnesium Total Bilirubin AST ALT Alkaline Phosphatase Total Creatine Kinase Total Protein Albumin Globulin Albumin/Globulin Ratio Stool Occult Blood Urine Opiates Screen Urine Methadone Screen Ur Barbiturates Screen Ur Phencyclidine Scrn Ur Amphetamines Screen U Benzodiazepines Scrn U Oth Cocaine Metabols U Cannabinoids Screen Hep Bs Antigen Hep B Core IgM Ab Hepatitis C Antibody Radiology Impressions: Radiology Impressions Chest/Abdomen/Pelvis CT 08/22/18 15:13 IMPRESSION: Severe-diffuse colitis. Portions of the appendix are edematous likely reactive related to severe colitis. Porcelain gallbladder/gallstones. Satisfactory position of support apparatus. Multiple old fractures described in greater detail above. Concordant results (preliminary interpretation) provided by [facility]. Procedure Completed: 21:29. Preliminary Report: Interpreted and electronically signed: 22:42. Final Interpretation: 10:40.August 23, 2018. Head CT 08/22/18 15:14 IMPRESSION: No intracranial mass, hemorrhage or evidence of acute infarct. Mild age-appropriate involutional change. No change from prior examination. The preliminary findings for this examination were reported by [facility] at 10:16 p.m. on 08/22/2018. There is concurrence of this report with the preliminary findings. Chest X-Ray 08/22/18 18:18 IMPRESSION: No active disease. No significant interval change compared to the prior examination(s). Stable position of endotracheal tube. Satisfactory position of right IJ catheter. No adverse findings, no pneumothorax identified. Chest X-Ray 08/23/18 06:00 IMPRESSION: ET tube and NG tube. No infiltrate. Chest X-Ray 08/24/18 06:00 IMPRESSION: No interval pathology noted. Fingerstick Blood Sugar Results: 238 Assessment/Plan - Assessment and Plan (Free Text) Assessment: Pt is a 73 y/o female with hx of Dementia, COPD, ETOH abuse, Depression/Schizophrenias, Squamous cell carcinoma of mouth/neck, TIA brought to hospital on 08/22 after being found at home by neighbor with AMS on floor covered in feces, in ED was agitated and tachypnic, intubated for airway protection, found to be in Septic shock, CT Abdomen reporting diffuse colitis, and Acute renal failure w/ metabolic acidosis s/p 2 Bicarb. Receiving urgent HD. #Neuro - Received Versed x1 prior to intubation but has remained comatose w/ GCS 3 since then - Unclear Etiology. Differential diagnosis includes but not limited to: Intra- cranial Pathology vs Metabolic encephalopathy in setting of Septic shock, Metabolic acidosis, Uremia vs Alcohol withdrawal - Utox negative, ETOH wnl - Head CT negative - Neurology following, plan for Brain MRI today, concern for ischemic event #Cardio - Weaned of Levophed, BP stable - Currently hemodynamically stable #Pulm - Intubated on MV FIO 60% - Not candidate for weaning due to current mental status - Cxray-wnl #Renal - Acute renal failure w/ Oliguria. Likely Pre-renal 2/2 dehydration/sepsis vs direct toxic injury/Rhabdo (CPK 1k) - BUN/Crea 200/5 on admission. Slight improvement with Urgent HD. BUN/Crea 122/3.6 today - Nephrology following, Dr. Hernandez - Severe hypocalcemia this am 5.7 corrected to 6.3 . Repleted with IV Ca Gluconate - Metabolic acidosis w/ AG 37 on presentation, Received Bicarb x2, Acid- base status improved, AG 21 and CO2 24 on chem - IV fluids, NS at 125cc/hr #GI - Diffuse Colitis on CTAP on admission - Septic shock w/ worsening lactic acidosis and no definitive source of infection raises suspicion for ischemic bowels - STAT GI and General Surgery consult; recommending CT Abdomen/Pelvis with PO contrast only - Will follow closely - C diff and stool studies sent #Heme/ID - Hg stable - Platelets decreased to 80; HIT workup sent - SEPSIS criteria met via: Leukocytosis 15.6 w/ Bandemia in 30s. Lactic acidosis now worsening 5>3>2>4.4 today, Febrile, - Bcx, Ucx, Stool cx pending - Vanco and Cefipime - Given AMS; will consider Lumbar Tap to r/u Meningitis/Encephalitis - LE mottling and scattered bruises/cyanotic digits concerning for DIC. Workup sent #PPX: GI PPx: Protonix IV daily DVT ppx: Heparin SQ Lines: Segal, HD cathether, R. Femoral Triple lumen Next of Kin: daughter Abdon Andrews Discussed case with Dr. Alireza Mejia PGY2 <Krishna Lay M - Last Filed: 08/24/18 12:46> CCU Objective - Vital Signs / Intake & Output Vital Signs (Last 4 hours): Vital Signs Temp Pulse Resp BP Pulse Ox 08/24/18 12:00 98.5 F 93 H 26 H 128/63 100 08/24/18 10:00 92 H 32 H 141/91 H Intake and Output (Last 8hrs): Intake & Output 08/23/18 08/24/18 08/24/18 22:59 06:59 14:59 Intake Total 1175 926 300 Output Total 0 10 Balance 1175 916 300 Intake: IV 1075 826 Intake, Piggyback 100 100 300 Output: Urine 0 10 Urethral (Segal) 0 10 - Medications Active Medications: Active Medications Generic Name Dose Route Start Last Admin Trade Name Freq PRN Reason Stop Dose Admin Acetaminophen 650 mg 08/22/18 23:49 08/23/18 16:24 Tylenol 650 Mg Supp ME 650 mg Q6 PRN Administration Fever >100.4 F Calcium Carbonate 500 mg 08/24/18 13:00 Oscal PO TID BHUPENDRA Folic Acid 1 mg 08/24/18 09:00 08/24/18 11:25 Folic Acid PO 1 mg DAILY BHUPENDRA Administration Heparin Sodium (Porcine) 5,000 units 08/23/18 21:00 08/24/18 10:01 Heparin SC 5,000 units Q12 BHUPENDRA Administration Protocol Piperacillin Sod/Tazobactam 100 mls @ 100 mls/hr 08/23/18 01:00 08/24/18 10:01 Sod 2.25 gm/ Sodium Chloride IVPB 100 mls/hr Q8 BHUPENDRA Administration Protocol Ceftriaxone Sodium 1 gm/ 100 mls @ 100 mls/hr 08/23/18 09:00 08/24/18 10:01 Sodium Chloride IVPB 100 mls/hr DAILY BHUPENDRA Administration Protocol Sodium Chloride 1,000 mls @ 125 mls/hr 08/24/18 11:30 Sodium Chloride 0.9% IV 08/25/18 11:29 .Q8H BHUPENDRA Vancomycin HCl 1 gm/ Sodium 250 mls @ 125 mls/hr 08/24/18 12:45 Chloride IVPB 08/25/18 12:42 POSTDI BHUPENDRA Protocol Pantoprazole Sodium 40 mg 08/23/18 17:00 08/24/18 10:00 Protonix Inj IVP 40 mg DAILY BHUPENDRA Administration Thiamine HCl 100 mg 08/24/18 09:00 08/24/18 11:24 Vitamin B1 Inj IM 100 mg DAILY BHUPENDRA Administration - Patient Studies Lab Studies: Microbiology Studies 08/22/18 17:20 Urine Culture - Final Urine,Segal <10,000 CFU/ML. MULTIPLE SPECIES. PROBABLE CONTAMINATION. 08/22/18 16:14 Blood Culture - Preliminary Blood-Venous NO GROWTH AFTER 24 HOURS 08/22/18 15:50 Blood Culture - Preliminary Blood-Venous NO GROWTH AFTER 24 HOURS Lab Studies 08/24/18 08/24/18 08/24/18 Range/Units 11:50 05:00 05:00 WBC 15.6 H (4.8-10.8) K/uL RBC 3.21 L (3.80-5.20) Mil/uL Hgb 10.9 L (12.0-16.0) g/dL Hct 33.0 L (34.0-47.0) % MCV 102.6 H (81.0-99.0) fl MCH 34.0 H (27.0-31.0) pg MCHC 33.2 (33.0-37.0) g/dL RDW 18.9 H (11.5-14.5) % Plt Count 85 L D (130-400) K/uL MPV (7.2-11.7) fl Neut % (Auto) (50.0-75.0) % Lymph % (Auto) (20.0-40.0) % Vernon % (Auto) (0.0-10.0) % Eos % (Auto) (0.0-4.0) % Baso % (Auto) (0.0-2.0) % Neut # (Auto) (1.8-7.0) K/uL Lymph # (Auto) (1.0-4.3) K/uL Vernon # (Auto) (0.0-0.8) K/uL Eos # (Auto) (0.0-0.7) K/uL Baso # (Auto) (0.0-0.2) K/uL PT 12.8 (9.8-13.1) Seconds INR 1.1 APTT 38.6 H (25.6-37.1) Seconds Fibrinogen 833 H* (200-400) mg/dl pCO2 (35-45) mm/Hg pO2 (80-100) mm/Hg HCO3 (21-28) mmol/L ABG pH (7.35-7.45) ABG Total CO2 (22-28) mmol/L ABG O2 Saturation (95-98) % ABG O2 Content (15-23) ML/dL ABG Base Excess (-2.0-3.0) mmol/L ABG Hemoglobin (11.7-17.4) g/dL ABG Carboxyhemoglobin (0.5-1.5) % POC ABG HHb (Measured) (0.0-5.0) % ABG Methemoglobin (0.0-3.0) % ABG O2 Capacity (16-24) mL/dL Genaro Test A-a O2 Difference mm/Hg Hgb O2 Saturation (95.0-98.0) % Vent Mode Mechanical Rate FiO2 % Tidal Volume PEEP Crit Value Called To Crit Value Called By Crit Value Read Back Blood Gas Notified Time Sodium 144 (132-148) mmol/l Potassium 3.4 L (3.6-5.0) MMOL/L Chloride 102 (98-107) mmol/L Carbon Dioxide 24 (22-30) mmol/L Anion Gap 21 H (10-20) BUN 122 H* (7-17) mg/dl Creatinine 3.6 H (0.7-1.2) mg/dl Est GFR ( Amer) 15 Est GFR (Non-Af Amer) 12 Random Glucose 143 H (65-105) mg/dL Lactic Acid (0.7-2.1) mmol/L Calcium 5.7 L* (8.4-10.2) mg/dL Phosphorus (2.5-4.5) mg/dl Magnesium (1.6-2.3) MG/DL Total Bilirubin (0.2-1.3) mg/dl AST (14-36) U/L ALT (9-52) U/L Alkaline Phosphatase (38-126) U/L Total Creatine Kinase (30-135) U/L Total Protein (6.3-8.2) G/DL Albumin (3.5-5.0) g/dL Globulin (2.2-3.9) gm/dL Albumin/Globulin Ratio (1.0-2.1) Stool Occult Blood (NEGATIVE) Hep Bs Antibody, Quant (>or=10) mIU/mL Hep B Core IgM Ab (NEGATIVE) Hepatitis C Antibody (NEGATIVE) 08/24/18 08/23/18 08/23/18 Range/Units 03:44 20:47 20:47 WBC (4.8-10.8) K/uL RBC (3.80-5.20) Mil/uL Hgb (12.0-16.0) g/dL Hct (34.0-47.0) % MCV (81.0-99.0) fl MCH (27.0-31.0) pg MCHC (33.0-37.0) g/dL RDW (11.5-14.5) % Plt Count (130-400) K/uL MPV (7.2-11.7) fl Neut % (Auto) (50.0-75.0) % Lymph % (Auto) (20.0-40.0) % Vernon % (Auto) (0.0-10.0) % Eos % (Auto) (0.0-4.0) % Baso % (Auto) (0.0-2.0) % Neut # (Auto) (1.8-7.0) K/uL Lymph # (Auto) (1.0-4.3) K/uL Vernon # (Auto) (0.0-0.8) K/uL Eos # (Auto) (0.0-0.7) K/uL Baso # (Auto) (0.0-0.2) K/uL PT (9.8-13.1) Seconds INR APTT (25.6-37.1) Seconds Fibrinogen (200-400) mg/dl pCO2 28 L (35-45) mm/Hg pO2 187 H (80-100) mm/Hg HCO3 25.0 (21-28) mmol/L ABG pH 7.52 H (7.35-7.45) ABG Total CO2 23.8 (22-28) mmol/L ABG O2 Saturation 99.8 H (95-98) % ABG O2 Content 8.8 L (15-23) ML/dL ABG Base Excess 0.1 (-2.0-3.0) mmol/L ABG Hemoglobin 6.1 L (11.7-17.4) g/dL ABG Carboxyhemoglobin 1.2 (0.5-1.5) % POC ABG HHb (Measured) 0.2 (0.0-5.0) % ABG Methemoglobin 2.3 (0.0-3.0) % ABG O2 Capacity 8.8 L (16-24) mL/dL Genaro Test Yes A-a O2 Difference 206.0 mm/Hg Hgb O2 Saturation 96.3 (95.0-98.0) % Vent Mode A/c Mechanical Rate 12 FiO2 60.0 % Tidal Volume 450 PEEP 5 Crit Value Called To Monserrat toscano rn Crit Value Called By 6075 Crit Value Read Back Y Blood Gas Notified Time 350 Sodium 143 (132-148) mmol/l Potassium 3.5 L (3.6-5.0) MMOL/L Chloride 103 (98-107) mmol/L Carbon Dioxide 22 (22-30) mmol/L Anion Gap 22 H (10-20) BUN 117 H* (7-17) mg/dl Creatinine 3.8 H (0.7-1.2) mg/dl Est GFR ( Amer) 14 Est GFR (Non-Af Amer) 12 Random Glucose 154 H (65-105) mg/dL Lactic Acid 4.4 H* (0.7-2.1) mmol/L Calcium 6.2 L (8.4-10.2) mg/dL Phosphorus 3.9 (2.5-4.5) mg/dl Magnesium 1.6 (1.6-2.3) MG/DL Total Bilirubin 1.5 H (0.2-1.3) mg/dl AST 117 H D (14-36) U/L ALT 46 (9-52) U/L Alkaline Phosphatase 190 H (38-126) U/L Total Creatine Kinase (30-135) U/L Total Protein 6.4 (6.3-8.2) G/DL Albumin 3.3 L (3.5-5.0) g/dL Globulin 3.0 (2.2-3.9) gm/dL Albumin/Globulin Ratio 1.1 (1.0-2.1) Stool Occult Blood (NEGATIVE) Hep Bs Antibody, Quant (>or=10) mIU/mL Hep B Core IgM Ab (NEGATIVE) Hepatitis C Antibody (NEGATIVE) 08/23/18 08/23/18 08/23/18 Range/Units 20:47 18:16 11:30 WBC 16.5 H D (4.8-10.8) K/uL RBC 3.37 L (3.80-5.20) Mil/uL Hgb 11.6 L (12.0-16.0) g/dL Hct 34.6 (34.0-47.0) % MCV 102.5 H (81.0-99.0) fl MCH 34.3 H (27.0-31.0) pg MCHC 33.5 (33.0-37.0) g/dL RDW 18.7 H (11.5-14.5) % Plt Count 106 L (130-400) K/uL MPV 9.9 (7.2-11.7) fl Neut % (Auto) 87.4 H (50.0-75.0) % Lymph % (Auto) 6.8 L (20.0-40.0) % Vernon % (Auto) 5.4 (0.0-10.0) % Eos % (Auto) 0.2 (0.0-4.0) % Baso % (Auto) 0.2 (0.0-2.0) % Neut # (Auto) 14.4 H (1.8-7.0) K/uL Lymph # (Auto) 1.1 (1.0-4.3) K/uL Vernon # (Auto) 0.9 H (0.0-0.8) K/uL Eos # (Auto) 0.0 (0.0-0.7) K/uL Baso # (Auto) 0.0 (0.0-0.2) K/uL PT (9.8-13.1) Seconds INR APTT (25.6-37.1) Seconds Fibrinogen (200-400) mg/dl pCO2 (35-45) mm/Hg pO2 (80-100) mm/Hg HCO3 (21-28) mmol/L ABG pH (7.35-7.45) ABG Total CO2 (22-28) mmol/L ABG O2 Saturation (95-98) % ABG O2 Content (15-23) ML/dL ABG Base Excess (-2.0-3.0) mmol/L ABG Hemoglobin (11.7-17.4) g/dL ABG Carboxyhemoglobin (0.5-1.5) % POC ABG HHb (Measured) (0.0-5.0) % ABG Methemoglobin (0.0-3.0) % ABG O2 Capacity (16-24) mL/dL Genaro Test A-a O2 Difference mm/Hg Hgb O2 Saturation (95.0-98.0) % Vent Mode Mechanical Rate FiO2 % Tidal Volume PEEP Crit Value Called To Crit Value Called By Crit Value Read Back Blood Gas Notified Time Sodium (132-148) mmol/l Potassium (3.6-5.0) MMOL/L Chloride (98-107) mmol/L Carbon Dioxide (22-30) mmol/L Anion Gap (10-20) BUN 105 H* D (7-17) mg/dl Creatinine (0.7-1.2) mg/dl Est GFR ( Amer) Est GFR (Non-Af Amer) Random Glucose (65-105) mg/dL Lactic Acid (0.7-2.1) mmol/L Calcium 6.0 L* (8.4-10.2) mg/dL Phosphorus (2.5-4.5) mg/dl Magnesium (1.6-2.3) MG/DL Total Bilirubin (0.2-1.3) mg/dl AST (14-36) U/L ALT (9-52) U/L Alkaline Phosphatase (38-126) U/L Total Creatine Kinase 1151 H (30-135) U/L Total Protein (6.3-8.2) G/DL Albumin (3.5-5.0) g/dL Globulin (2.2-3.9) gm/dL Albumin/Globulin Ratio (1.0-2.1) Stool Occult Blood (NEGATIVE) Hep Bs Antibody, Quant (>or=10) mIU/mL Hep B Core IgM Ab (NEGATIVE) Hepatitis C Antibody (NEGATIVE) 08/23/18 08/23/18 08/23/18 Range/Units 11:20 09:25 09:25 WBC (4.8-10.8) K/uL RBC (3.80-5.20) Mil/uL Hgb (12.0-16.0) g/dL Hct (34.0-47.0) % MCV (81.0-99.0) fl MCH (27.0-31.0) pg MCHC (33.0-37.0) g/dL RDW (11.5-14.5) % Plt Count (130-400) K/uL MPV (7.2-11.7) fl Neut % (Auto) (50.0-75.0) % Lymph % (Auto) (20.0-40.0) % Vernon % (Auto) (0.0-10.0) % Eos % (Auto) (0.0-4.0) % Baso % (Auto) (0.0-2.0) % Neut # (Auto) (1.8-7.0) K/uL Lymph # (Auto) (1.0-4.3) K/uL Vernon # (Auto) (0.0-0.8) K/uL Eos # (Auto) (0.0-0.7) K/uL Baso # (Auto) (0.0-0.2) K/uL PT (9.8-13.1) Seconds INR APTT (25.6-37.1) Seconds Fibrinogen (200-400) mg/dl pCO2 (35-45) mm/Hg pO2 (80-100) mm/Hg HCO3 (21-28) mmol/L ABG pH (7.35-7.45) ABG Total CO2 (22-28) mmol/L ABG O2 Saturation (95-98) % ABG O2 Content (15-23) ML/dL ABG Base Excess (-2.0-3.0) mmol/L ABG Hemoglobin (11.7-17.4) g/dL ABG Carboxyhemoglobin (0.5-1.5) % POC ABG HHb (Measured) (0.0-5.0) % ABG Methemoglobin (0.0-3.0) % ABG O2 Capacity (16-24) mL/dL Genaro Test A-a O2 Difference mm/Hg Hgb O2 Saturation (95.0-98.0) % Vent Mode Mechanical Rate FiO2 % Tidal Volume PEEP Crit Value Called To Crit Value Called By Crit Value Read Back Blood Gas Notified Time Sodium (132-148) mmol/l Potassium (3.6-5.0) MMOL/L Chloride (98-107) mmol/L Carbon Dioxide (22-30) mmol/L Anion Gap (10-20) BUN (7-17) mg/dl Creatinine (0.7-1.2) mg/dl Est GFR ( Amer) Est GFR (Non-Af Amer) Random Glucose (65-105) mg/dL Lactic Acid (0.7-2.1) mmol/L Calcium (8.4-10.2) mg/dL Phosphorus (2.5-4.5) mg/dl Magnesium (1.6-2.3) MG/DL Total Bilirubin (0.2-1.3) mg/dl AST (14-36) U/L ALT (9-52) U/L Alkaline Phosphatase (38-126) U/L Total Creatine Kinase (30-135) U/L Total Protein (6.3-8.2) G/DL Albumin (3.5-5.0) g/dL Globulin (2.2-3.9) gm/dL Albumin/Globulin Ratio (1.0-2.1) Stool Occult Blood Positive H (NEGATIVE) Hep Bs Antibody, Quant <5 L (>or=10) mIU/mL Hep B Core IgM Ab Negative (NEGATIVE) Hepatitis C Antibody Negative (NEGATIVE) Laboratory Results - last 24 hr 08/23/18 08/23/18 08/23/18 09:25 09:25 11:20 WBC RBC Hgb Hct MCV MCH MCHC RDW Plt Count MPV Neut % (Auto) Lymph % (Auto) Vernon % (Auto) Eos % (Auto) Baso % (Auto) Neut # (Auto) Lymph # (Auto) Vernon # (Auto) Eos # (Auto) Baso # (Auto) PT INR APTT Fibrinogen pCO2 pO2 HCO3 ABG pH ABG Total CO2 ABG O2 Saturation ABG O2 Content ABG Base Excess ABG Hemoglobin ABG Carboxyhemoglobin POC ABG HHb (Measured) ABG Methemoglobin ABG O2 Capacity Genaro Test A-a O2 Difference Hgb O2 Saturation Vent Mode Mechanical Rate FiO2 Tidal Volume PEEP Crit Value Called To Crit Value Called By Crit Value Read Back Blood Gas Notified Time Sodium Potassium Chloride Carbon Dioxide Anion Gap BUN Creatinine Est GFR ( Amer) Est GFR (Non-Af Amer) Random Glucose Lactic Acid Calcium Phosphorus Magnesium Total Bilirubin AST ALT Alkaline Phosphatase Total Creatine Kinase Total Protein Albumin Globulin Albumin/Globulin Ratio Stool Occult Blood Positive H Hep Bs Antibody, Quant <5 L Hep B Core IgM Ab Negative Hepatitis C Antibody Negative 08/23/18 08/23/18 08/23/18 11:30 18:16 20:47 WBC 16.5 H D RBC 3.37 L Hgb 11.6 L Hct 34.6 MCV 102.5 H MCH 34.3 H MCHC 33.5 RDW 18.7 H Plt Count 106 L MPV 9.9 Neut % (Auto) 87.4 H Lymph % (Auto) 6.8 L Vernon % (Auto) 5.4 Eos % (Auto) 0.2 Baso % (Auto) 0.2 Neut # (Auto) 14.4 H Lymph # (Auto) 1.1 Vernon # (Auto) 0.9 H Eos # (Auto) 0.0 Baso # (Auto) 0.0 PT INR APTT Fibrinogen pCO2 pO2 HCO3 ABG pH ABG Total CO2 ABG O2 Saturation ABG O2 Content ABG Base Excess ABG Hemoglobin ABG Carboxyhemoglobin POC ABG HHb (Measured) ABG Methemoglobin ABG O2 Capacity Genaro Test A-a O2 Difference Hgb O2 Saturation Vent Mode Mechanical Rate FiO2 Tidal Volume PEEP Crit Value Called To Crit Value Called By Crit Value Read Back Blood Gas Notified Time Sodium Potassium Chloride Carbon Dioxide Anion Gap BUN 105 H* D Creatinine Est GFR ( Amer) Est GFR (Non-Af Amer) Random Glucose Lactic Acid Calcium 6.0 L* Phosphorus Magnesium Total Bilirubin AST ALT Alkaline Phosphatase Total Creatine Kinase 1151 H Total Protein Albumin Globulin Albumin/Globulin Ratio Stool Occult Blood Hep Bs Antibody, Quant Hep B Core IgM Ab Hepatitis C Antibody 08/23/18 08/23/18 08/24/18 20:47 20:47 03:44 WBC RBC Hgb Hct MCV MCH MCHC RDW Plt Count MPV Neut % (Auto) Lymph % (Auto) Vernon % (Auto) Eos % (Auto) Baso % (Auto) Neut # (Auto) Lymph # (Auto) Vernon # (Auto) Eos # (Auto) Baso # (Auto) PT INR APTT Fibrinogen pCO2 28 L pO2 187 H HCO3 25.0 ABG pH 7.52 H ABG Total CO2 23.8 ABG O2 Saturation 99.8 H ABG O2 Content 8.8 L ABG Base Excess 0.1 ABG Hemoglobin 6.1 L ABG Carboxyhemoglobin 1.2 POC ABG HHb (Measured) 0.2 ABG Methemoglobin 2.3 ABG O2 Capacity 8.8 L Genaro Test Yes A-a O2 Difference 206.0 Hgb O2 Saturation 96.3 Vent Mode A/c Mechanical Rate 12 FiO2 60.0 Tidal Volume 450 PEEP 5 Crit Value Called To Monserrat toscano rn Crit Value Called By 6075 Crit Value Read Back Y Blood Gas Notified Time 350 Sodium 143 Potassium 3.5 L Chloride 103 Carbon Dioxide 22 Anion Gap 22 H BUN 117 H* Creatinine 3.8 H Est GFR ( Amer) 14 Est GFR (Non-Af Amer) 12 Random Glucose 154 H Lactic Acid 4.4 H* Calcium 6.2 L Phosphorus 3.9 Magnesium 1.6 Total Bilirubin 1.5 H AST 117 H D ALT 46 Alkaline Phosphatase 190 H Total Creatine Kinase Total Protein 6.4 Albumin 3.3 L Globulin 3.0 Albumin/Globulin Ratio 1.1 Stool Occult Blood Hep Bs Antibody, Quant Hep B Core IgM Ab Hepatitis C Antibody 08/24/18 08/24/18 08/24/18 05:00 05:00 11:50 WBC 15.6 H RBC 3.21 L Hgb 10.9 L Hct 33.0 L MCV 102.6 H MCH 34.0 H MCHC 33.2 RDW 18.9 H Plt Count 85 L D MPV Neut % (Auto) Lymph % (Auto) Vernon % (Auto) Eos % (Auto) Baso % (Auto) Neut # (Auto) Lymph # (Auto) Vernon # (Auto) Eos # (Auto) Baso # (Auto) PT 12.8 INR 1.1 APTT 38.6 H Fibrinogen 833 H* pCO2 pO2 HCO3 ABG pH ABG Total CO2 ABG O2 Saturation ABG O2 Content ABG Base Excess ABG Hemoglobin ABG Carboxyhemoglobin POC ABG HHb (Measured) ABG Methemoglobin ABG O2 Capacity Genaro Test A-a O2 Difference Hgb O2 Saturation Vent Mode Mechanical Rate FiO2 Tidal Volume PEEP Crit Value Called To Crit Value Called By Crit Value Read Back Blood Gas Notified Time Sodium 144 Potassium 3.4 L Chloride 102 Carbon Dioxide 24 Anion Gap 21 H BUN 122 H* Creatinine 3.6 H Est GFR ( Amer) 15 Est GFR (Non-Af Amer) 12 Random Glucose 143 H Lactic Acid Calcium 5.7 L* Phosphorus Magnesium Total Bilirubin AST ALT Alkaline Phosphatase Total Creatine Kinase Total Protein Albumin Globulin Albumin/Globulin Ratio Stool Occult Blood Hep Bs Antibody, Quant Hep B Core IgM Ab Hepatitis C Antibody Radiology Impressions: Radiology Impressions Chest X-Ray 08/24/18 06:00 IMPRESSION: No interval pathology noted. Assessment/Plan (1) Altered mental status Current Visit: Yes Status: Acute Priority: High (2) Acute respiratory failure Current Visit: Yes Status: Acute Priority: High (3) Septic shock Current Visit: Yes Status: Acute Priority: High (4) Acute renal failure Current Visit: Yes Status: Acute Priority: High (5) Metabolic acidosis Current Visit: Yes Status: Acute Priority: High (6) Hypernatremia Current Visit: Yes Status: Acute Priority: High Attending/Attestation - Attestation I have personally seen and examined this patient.: Yes I have fully participated in the care of the patient.: Yes I have reviewed all pertinent clinical information: Yes Notes (Text): 08/24/18 12:46 Today: Wednesday, August 24, 2018 The patient was Seen/interviewed and examined by me at the bedside during ICU round, Medical records reviewed and Management issues were discussed and formulated with the house staff. Events reviewed I have reviewed all the relevant clinical, laboratory, hemodynamic, radiographic data and medications Pain issues, skin care, head of the bed elevation, glycemic control were addressed. I concur with resident's assessment and plan of care as transcribed in Dr. Mejia note.
[2018-08-24] MEDS: Sodium Chloride 0.9% 1,000 ML IV SCH ×2 (12:59→20:24)
--- NOTE | 2018-08-24 13:30 | CP.PCM.CON ---
History of Present Illness - History of Present Illness History of Present Illness: 73 y/o F, with multiple chronic medical condition including; COPD O2 dependent, Dementia, HTN, DMII, Hx of Oropharyngeal Ca, Tx with surgery 10 yrs ago, Schizophrenia, Major Depression Disorder, substance abuse. Pt was brought on 08/22/18 to ER [facility] via EMS to be evaluated and Tx for AMS on DOA with no improvement, associated to According to EMS; Pt was found at home on the floor by a building services technician with AMS, associated to SOB and abdominal pain, covered with feces, unknown onset of episode 2nd to dementia. During the hospital course on DOA, Pt developed fever TMAx 100.0 F, HR 104, low BP 97/59 Pt became restless, tachypneic and was intubated, placed in ICU. Worsening symptoms: while at ER, found with B/L subconjuntival hemorrhage, Large areas of ecchymosis to chest, back, b/l arms and lower extremities, Pt intubated and unresponsive.. Past Patient History - Infectious Disease Hx of Infectious Diseases: None - Tetanus Immunizations Tetanus Immunization: Unknown - Past Medical History & Family History Past Medical History?: Yes - Past Social History Smoking Status: Former Smoker Alcohol: Other (Hx ETOH abuse) Home Situation {Lives}: Alone - CARDIAC Hx Cardiac Disorders: Yes Hx Congestive Heart Failure: No Hx Hypercholesterolemia: Yes Hx Hypertension: Yes - PULMONARY Hx Respiratory Disorders: Yes Hx Bronchitis: Yes Hx Chronic Obstructive Pulmonary Disease (COPD): Yes Hx Pneumonia: Yes - NEUROLOGICAL Hx Neurological Disorder: Yes Hx Dementia: Yes Hx Seizures: No Hx Transient Ischemic Attacks (TIA): No - HEENT Hx HEENT Problems: Yes Hx Cataracts: Yes - RENAL Hx Chronic Kidney Disease: No - ENDOCRINE/METABOLIC Hx Endocrine Disorders: No Hx Hypothyroidism: No - HEMATOLOGICAL/ONCOLOGICAL Hx Blood Disorders: No Hx Human Immunodeficiency Virus (HIV): No - INTEGUMENTARY Hx Dermatological Problems: Yes Hx Squamous Cell: Yes (No Chemo treatment; surgery 10 yrs ago at [place]) - MUSCULOSKELETAL/RHEUMATOLOGICAL Hx Musculoskeletal Disorders: Yes Hx Arthritis: Yes Hx Falls: Yes Hx Fractures: Yes (right wrist fracture, rib fx) Hx Osteoporosis: Yes Hx Rheumatoid Arthritis: No - GASTROINTESTINAL Hx Gastrointestinal Disorders: No - GENITOURINARY/GYNECOLOGICAL Hx Genitourinary Disorders: No Hx Sexually Transmitted Disorders: No - PSYCHIATRIC Hx Psychophysiologic Disorder: Yes Hx Anxiety: Yes Hx Bipolar Disorder: Yes Hx Depression: Yes Hx Post Traumatic Stress Disorder: Yes Hx Schizophrenia: Yes Hx Substance Use: No - SURGICAL HISTORY Hx Surgeries: Yes Hx Hysterectomy: Yes (Partial) Other/Comment: mouth and neck CA SX - ANESTHESIA Hx Anesthesia: Yes Hx Anesthesia Reactions: No Hx Malignant Hyperthermia: No Meds Allergies/Adverse Reactions: Allergies Allergy/AdvReac Type Severity Reaction Status Date / Time No Known Allergies Allergy Verified 08/22/18 14:40 - Medications Medications: Current Medications Acetaminophen (Tylenol 650 Mg Supp) 650 mg ID Q6 PRN PRN Reason: Fever >100.4 F Last Admin: 08/23/18 16:24 Dose: 650 mg Calcium Carbonate (Oscal) 500 mg PO TID [facility] Last Admin: 08/24/18 12:58 Dose: 500 mg Folic Acid (Folic Acid) 1 mg PO DAILY [facility] Last Admin: 08/24/18 11:25 Dose: 1 mg Heparin Sodium (Porcine) (Heparin) 5,000 units SC Q12 [facility]; Protocol Last Admin: 08/24/18 10:01 Dose: 5,000 units Piperacillin Sod/Tazobactam (Sod 2.25 gm/ Sodium Chloride) 100 mls @ 100 mls/hr IVPB Q8 [facility]; Protocol Last Admin: 08/24/18 10:01 Dose: 100 mls/hr Ceftriaxone Sodium 1 gm/ (Sodium Chloride) 100 mls @ 100 mls/hr IVPB DAILY [facility]; Protocol Last Admin: 08/24/18 10:01 Dose: 100 mls/hr Sodium Chloride (Sodium Chloride 0.9%) 1,000 mls @ 125 mls/hr IV .Q8H [facility] Stop: 08/25/18 11:29 Last Admin: 08/24/18 12:59 Dose: 125 mls/hr Vancomycin HCl 1 gm/ Sodium (Chloride) 250 mls @ 125 mls/hr IVPB POSTDI [facility]; Protocol Stop: 08/25/18 12:42 Pantoprazole Sodium (Protonix Inj) 40 mg IVP DAILY [facility] Last Admin: 08/24/18 10:00 Dose: 40 mg Thiamine HCl (Vitamin B1 Inj) 100 mg IM DAILY [facility] Last Admin: 08/24/18 11:24 Dose: 100 mg Results - Vital Signs Recent Vital Signs: Last Vital Signs Temp 98.5 F 08/24/18 12:00 Pulse 93 H 08/24/18 12:00 Resp 26 H 08/24/18 12:00 BP 128/63 08/24/18 12:00 Pulse Ox 100 08/24/18 12:00 - Labs Result Diagrams: 08/24/18 05:00 08/24/18 05:00 Labs: Laboratory Results - last 24 hr 08/23/18 08/23/18 08/23/18 09:25 09:25 11:20 WBC RBC Hgb Hct MCV MCH MCHC RDW Plt Count MPV Neut % (Auto) Lymph % (Auto) [place] % (Auto) Eos % (Auto) Baso % (Auto) Neut # (Auto) Lymph # (Auto) [place] # (Auto) Eos # (Auto) Baso # (Auto) PT INR APTT Fibrinogen D-Dimer, Quantitative pCO2 pO2 HCO3 ABG pH ABG Total CO2 ABG O2 Saturation ABG O2 Content ABG Base Excess ABG Hemoglobin ABG Carboxyhemoglobin POC ABG HHb (Measured) ABG Methemoglobin ABG O2 Capacity [place]aro Test A-a O2 Difference Hgb O2 Saturation Vent Mode Mechanical Rate FiO2 Tidal Volume PEEP Crit Value Called To Crit Value Called By Crit Value Read Back Blood Gas Notified Time Sodium Potassium Chloride Carbon Dioxide Anion Gap BUN Creatinine Est GFR ( Amer) Est GFR (Non-Af Amer) Random Glucose Lactic Acid Calcium Phosphorus Magnesium Total Bilirubin AST ALT Alkaline Phosphatase Total Creatine Kinase Total Protein Albumin Globulin Albumin/Globulin Ratio Stool Occult Blood Positive H Hep Bs Antibody, Quant <5 L Hep B Core IgM Ab Negative Hepatitis C Antibody Negative 08/23/18 08/23/18 08/23/18 18:16 20:47 20:47 WBC 16.5 H D RBC 3.37 L Hgb 11.6 L Hct 34.6 MCV 102.5 H MCH 34.3 H MCHC 33.5 RDW 18.7 H Plt Count 106 L MPV 9.9 Neut % (Auto) 87.4 H Lymph % (Auto) 6.8 L [place] % (Auto) 5.4 Eos % (Auto) 0.2 Baso % (Auto) 0.2 Neut # (Auto) 14.4 H Lymph # (Auto) 1.1 [place] # (Auto) 0.9 H Eos # (Auto) 0.0 Baso # (Auto) 0.0 PT INR APTT Fibrinogen D-Dimer, Quantitative pCO2 pO2 HCO3 ABG pH ABG Total CO2 ABG O2 Saturation ABG O2 Content ABG Base Excess ABG Hemoglobin ABG Carboxyhemoglobin POC ABG HHb (Measured) ABG Methemoglobin ABG O2 Capacity [place]aro Test A-a O2 Difference Hgb O2 Saturation Vent Mode Mechanical Rate FiO2 Tidal Volume PEEP Crit Value Called To Crit Value Called By Crit Value Read Back Blood Gas Notified Time Sodium 143 Potassium 3.5 L Chloride 103 Carbon Dioxide 22 Anion Gap 22 H BUN 117 H* Creatinine 3.8 H Est GFR ( Amer) 14 Est GFR (Non-Af Amer) 12 Random Glucose 154 H Lactic Acid Calcium 6.2 L Phosphorus 3.9 Magnesium 1.6 Total Bilirubin 1.5 H AST 117 H D ALT 46 Alkaline Phosphatase 190 H Total Creatine Kinase 1151 H Total Protein 6.4 Albumin 3.3 L Globulin 3.0 Albumin/Globulin Ratio 1.1 Stool Occult Blood Hep Bs Antibody, Quant Hep B Core IgM Ab Hepatitis C Antibody 08/23/18 08/24/18 08/24/18 20:47 03:44 05:00 WBC 15.6 H RBC 3.21 L Hgb 10.9 L Hct 33.0 L MCV 102.6 H MCH 34.0 H MCHC 33.2 RDW 18.9 H Plt Count 85 L D MPV Neut % (Auto) Lymph % (Auto) [place] % (Auto) Eos % (Auto) Baso % (Auto) Neut # (Auto) Lymph # (Auto) [place] # (Auto) Eos # (Auto) Baso # (Auto) PT INR APTT Fibrinogen D-Dimer, Quantitative pCO2 28 L pO2 187 H HCO3 25.0 ABG pH 7.52 H ABG Total CO2 23.8 ABG O2 Saturation 99.8 H ABG O2 Content 8.8 L ABG Base Excess 0.1 ABG Hemoglobin 6.1 L ABG Carboxyhemoglobin 1.2 POC ABG HHb (Measured) 0.2 ABG Methemoglobin 2.3 ABG O2 Capacity 8.8 L [place]aro Test Yes A-a O2 Difference 206.0 Hgb O2 Saturation 96.3 Vent Mode A/c Mechanical Rate 12 FiO2 60.0 Tidal Volume 450 PEEP 5 Crit Value Called To Monserrat toscano rn Crit Value Called By 6075 Crit Value Read Back Y Blood Gas Notified Time 350 Sodium Potassium Chloride Carbon Dioxide Anion Gap BUN Creatinine Est GFR ( Amer) Est GFR (Non-Af Amer) Random Glucose Lactic Acid 4.4 H* Calcium Phosphorus Magnesium Total Bilirubin AST ALT Alkaline Phosphatase Total Creatine Kinase Total Protein Albumin Globulin Albumin/Globulin Ratio Stool Occult Blood Hep Bs Antibody, Quant Hep B Core IgM Ab Hepatitis C Antibody 08/24/18 08/24/18 05:00 11:50 WBC RBC Hgb Hct MCV MCH MCHC RDW Plt Count MPV Neut % (Auto) Lymph % (Auto) [place] % (Auto) Eos % (Auto) Baso % (Auto) Neut # (Auto) Lymph # (Auto) [place] # (Auto) Eos # (Auto) Baso # (Auto) PT 12.8 INR 1.1 APTT 38.6 H Fibrinogen 833 H* D-Dimer, Quantitative 7701 H pCO2 pO2 HCO3 ABG pH ABG Total CO2 ABG O2 Saturation ABG O2 Content ABG Base Excess ABG Hemoglobin ABG Carboxyhemoglobin POC ABG HHb (Measured) ABG Methemoglobin ABG O2 Capacity [place]aro Test A-a O2 Difference Hgb O2 Saturation Vent Mode Mechanical Rate FiO2 Tidal Volume PEEP Crit Value Called To Crit Value Called By Crit Value Read Back Blood Gas Notified Time Sodium 144 Potassium 3.4 L Chloride 102 Carbon Dioxide 24 Anion Gap 21 H BUN 122 H* Creatinine 3.6 H Est GFR ( Amer) 15 Est GFR (Non-Af Amer) 12 Random Glucose 143 H Lactic Acid Calcium 5.7 L* Phosphorus Magnesium Total Bilirubin AST ALT Alkaline Phosphatase Total Creatine Kinase Total Protein Albumin Globulin Albumin/Globulin Ratio Stool Occult Blood Hep Bs Antibody, Quant Hep B Core IgM Ab Hepatitis C Antibody Assessment & Plan - Assessment and Plan (Free Text) Assessment: Acute respiratory failure Rhabdo Osmolar substance intoxication LESLIE No signs of infection except leukocytosis. pancolitis on CT scan Agree with Rocephin, Zosyn, and po vancomycin
--- NOTE | 2018-08-24 14:31 | CP.PCM.PN ---
Subjective - Date & Time of Evaluation Date of Evaluation: 08/24/18 Time of Evaluation: 10:20 - Subjective Subjective: F/U Acute Respiratory Failure. Pt unresponsive Objective - Vital Signs/Intake and Output Vital Signs (last 24 hours): Temp Pulse Resp BP Pulse Ox 98.5 F 92 H 26 H 110/59 L 100 08/24/18 12:00 08/24/18 14:00 08/24/18 14:00 08/24/18 14:00 08/24/18 14:00 Intake and Output: 08/24/18 08/24/18 06:59 18:59 Intake Total 1326 950 Output Total 10 Balance 1316 950 - Medications Medications: Current Medications Acetaminophen (Tylenol 650 Mg Supp) 650 mg [place] Q6 PRN PRN Reason: Fever >100.4 F Last Admin: 08/23/18 16:24 Dose: 650 mg Calcium Carbonate (Oscal) 500 mg PO TID [facility] Last Admin: 08/24/18 12:58 Dose: 500 mg Folic Acid (Folic Acid) 1 mg PO DAILY [facility] Last Admin: 08/24/18 11:25 Dose: 1 mg Heparin Sodium (Porcine) (Heparin) 5,000 units SC Q12 [facility]; Protocol Last Admin: 08/24/18 10:01 Dose: 5,000 units Piperacillin Sod/Tazobactam (Sod 2.25 gm/ Sodium Chloride) 100 mls @ 100 mls/hr IVPB Q8 [facility]; Protocol Last Admin: 08/24/18 10:01 Dose: 100 mls/hr Ceftriaxone Sodium 1 gm/ (Sodium Chloride) 100 mls @ 100 mls/hr IVPB DAILY [facility]; Protocol Last Admin: 08/24/18 10:01 Dose: 100 mls/hr Sodium Chloride (Sodium Chloride 0.9%) 1,000 mls @ 125 mls/hr IV .Q8H [facility] Stop: 08/25/18 11:29 Last Admin: 08/24/18 12:59 Dose: 125 mls/hr Vancomycin HCl 1 gm/ Sodium (Chloride) 250 mls @ 125 mls/hr IVPB ONCE ONE; Protocol Stop: 08/24/18 16:29 Pantoprazole Sodium (Protonix Inj) 40 mg IVP DAILY [facility] Last Admin: 08/24/18 10:00 Dose: 40 mg Thiamine HCl (Vitamin B1 Inj) 100 mg IM DAILY [facility] Last Admin: 08/24/18 11:24 Dose: 100 mg - Labs Labs: 08/24/18 05:00 08/24/18 05:00 PT 12.8 Seconds (9.8-13.1) 08/24/18 11:50 INR 1.1 08/24/18 11:50 APTT 38.6 Seconds (25.6-37.1) H 08/24/18 11:50 - Constitutional Appears: Chronically Ill - Head Exam Head Exam: NORMAL INSPECTION - Eye Exam Additional comments: Pupils reactive to light - ENT Exam Additional comments: Intubated. OGT - Neck Exam Neck Exam: Normal Inspection - Respiratory Exam Respiratory Exam: Decreased Breath Sounds - Cardiovascular Exam Cardiovascular Exam: REGULAR RHYTHM - GI/Abdominal Exam GI & Abdominal Exam: Soft, Normal Bowel Sounds - Exam Additional comments: Segal cath - Extremities Exam Additional comments: Multiple abrasions b/l hands. Fingertip and toes with Purple color - Back Exam Additional comments: Abrasion on back. - Neurological Exam Additional comments: Intubated-comatose. - Skin Additional comments: Body cold to touch. Assessment and Plan (1) Acute respiratory failure Status: Acute (2) Septic shock Status: Acute (3) Altered mental status Status: Acute (4) Acute renal failure Status: Acute (5) Metabolic acidosis Status: Acute (6) Colitis Status: Acute (7) Transaminitis Status: Acute (8) Rhabdomyolysis Status: Acute (9) DMII (diabetes mellitus, type 2) Status: Chronic (10) Hypernatremia Status: Resolved (11) COPD (chronic obstructive pulmonary disease) Status: Deleted (12) Dementia Status: Chronic (13) History of alcohol abuse Status: Chronic - Assessment and Plan (Free Text) Plan: F/U Renal U-S, Video EEG monitor, Brain MRI, Abdomen/Pelvis CT. Continue Zosyn, Rocephin, Heparin, Protonix and rest of Tx. ID and Palliative consult appreciated, GI and Hematology consult. Critical care time: 33 min.
[2018-08-24 14:33] LABS: BLOOD UREA NITROGEN 64 mg/dl (7-17); CALCIUM 6.5 mg/dL (8.4-10.2); GFR NON-AFRICAN AMERICAN 18
--- NOTE | 2018-08-24 16:02 | CP.PCM.CON ---
History of Present Illness - History of Present Illness History of Present Illness: 73 yo female found lying on floor in feces and brought to ER. Found to have elevated kidney functions and was intubated. CT showed pancolitis and GI consult requested. Currently unresponsive Review of Systems - Review of Systems Systems not reviewed;Unavailable: Altered Mental Status Past Patient History - Infectious Disease Hx of Infectious Diseases: None - Tetanus Immunizations Tetanus Immunization: Unknown - Past Medical History & Family History Past Medical History?: Yes - Past Social History Smoking Status: Former Smoker Alcohol: Other (Hx ETOH abuse) Home Situation {Lives}: Alone - CARDIAC Hx Cardiac Disorders: Yes Hx Congestive Heart Failure: No Hx Hypercholesterolemia: Yes Hx Hypertension: Yes - PULMONARY Hx Respiratory Disorders: Yes Hx Bronchitis: Yes Hx Chronic Obstructive Pulmonary Disease (COPD): Yes Hx Pneumonia: Yes - NEUROLOGICAL Hx Neurological Disorder: Yes Hx Dementia: Yes Hx Seizures: No Hx Transient Ischemic Attacks (TIA): No - HEENT Hx HEENT Problems: Yes Hx Cataracts: Yes - RENAL Hx Chronic Kidney Disease: No - ENDOCRINE/METABOLIC Hx Endocrine Disorders: No Hx Hypothyroidism: No - HEMATOLOGICAL/ONCOLOGICAL Hx Blood Disorders: No Hx Human Immunodeficiency Virus (HIV): No - INTEGUMENTARY Hx Dermatological Problems: Yes Hx Squamous Cell: Yes (No Chemo treatment; surgery 10 yrs ago at [place]) - MUSCULOSKELETAL/RHEUMATOLOGICAL Hx Musculoskeletal Disorders: Yes Hx Arthritis: Yes Hx Falls: Yes Hx Fractures: Yes (right wrist fracture, rib fx) Hx Osteoporosis: Yes Hx Rheumatoid Arthritis: No - GASTROINTESTINAL Hx Gastrointestinal Disorders: No - GENITOURINARY/GYNECOLOGICAL Hx Genitourinary Disorders: No Hx Sexually Transmitted Disorders: No - PSYCHIATRIC Hx Psychophysiologic Disorder: Yes Hx Anxiety: Yes Hx Bipolar Disorder: Yes Hx Depression: Yes Hx Post Traumatic Stress Disorder: Yes Hx Schizophrenia: Yes Hx Substance Use: No - SURGICAL HISTORY Hx Surgeries: Yes Hx Hysterectomy: Yes (Partial) Other/Comment: mouth and neck CA SX - ANESTHESIA Hx Anesthesia: Yes Hx Anesthesia Reactions: No Hx Malignant Hyperthermia: No Meds Allergies/Adverse Reactions: Allergies Allergy/AdvReac Type Severity Reaction Status Date / Time No Known Allergies Allergy Verified 08/22/18 14:40 - Medications Medications: Current Medications Acetaminophen (Tylenol 650 Mg Supp) 650 mg SC Q6 PRN PRN Reason: Fever >100.4 F Last Admin: 08/23/18 16:24 Dose: 650 mg Calcium Carbonate (Oscal) 500 mg PO TID [facility] Last Admin: 08/24/18 12:58 Dose: 500 mg Folic Acid (Folic Acid) 1 mg PO DAILY [facility] Last Admin: 08/24/18 11:25 Dose: 1 mg Heparin Sodium (Porcine) (Heparin) 5,000 units SC Q12 [facility]; Protocol Last Admin: 08/24/18 10:01 Dose: 5,000 units Piperacillin Sod/Tazobactam (Sod 2.25 gm/ Sodium Chloride) 100 mls @ 100 mls/hr IVPB Q8 [facility]; Protocol Last Admin: 08/24/18 10:01 Dose: 100 mls/hr Ceftriaxone Sodium 1 gm/ (Sodium Chloride) 100 mls @ 100 mls/hr IVPB DAILY [facility]; Protocol Last Admin: 08/24/18 10:01 Dose: 100 mls/hr Sodium Chloride (Sodium Chloride 0.9%) 1,000 mls @ 125 mls/hr IV .Q8H [facility] Stop: 08/25/18 11:29 Last Admin: 08/24/18 12:59 Dose: 125 mls/hr Vancomycin HCl 1 gm/ Sodium (Chloride) 250 mls @ 125 mls/hr IVPB ONCE ONE; Protocol Stop: 08/24/18 16:29 Pantoprazole Sodium (Protonix Inj) 40 mg IVP DAILY [facility] Last Admin: 08/24/18 10:00 Dose: 40 mg Thiamine HCl (Vitamin B1 Inj) 100 mg IM DAILY [facility] Last Admin: 08/24/18 11:24 Dose: 100 mg Physical Exam - Constitutional Appears: No Acute Distress - Head Exam Head Exam: ATRAUMATIC - Eye Exam Eye Exam: Normal appearance - ENT Exam ENT Exam: Normal Exam - Neck Exam Neck exam: Positive for: Normal Inspection - Respiratory Exam Respiratory Exam: Clear to Auscultation Bilateral - Cardiovascular Exam Cardiovascular Exam: REGULAR RHYTHM - GI/Abdominal Exam GI & Abdominal Exam: Normal Bowel Sounds, Soft. absent: Tenderness Results - Vital Signs Recent Vital Signs: Last Vital Signs Temp 98.5 F 08/24/18 12:00 Pulse 92 H 08/24/18 14:00 Resp 26 H 08/24/18 14:00 BP 110/59 L 08/24/18 14:00 Pulse Ox 100 08/24/18 14:00 - Labs Result Diagrams: 08/24/18 05:00 08/24/18 13:45 Labs: Laboratory Results - last 24 hr 08/23/18 08/23/18 08/23/18 09:25 09:25 11:20 WBC RBC Hgb Hct MCV MCH MCHC RDW Plt Count MPV Neut % (Auto) Lymph % (Auto) [place] % (Auto) Eos % (Auto) Baso % (Auto) Neut # (Auto) Lymph # (Auto) [place] # (Auto) Eos # (Auto) Baso # (Auto) PT INR APTT Fibrinogen D-Dimer, Quantitative pCO2 pO2 HCO3 ABG pH ABG Total CO2 ABG O2 Saturation ABG O2 Content ABG Base Excess ABG Hemoglobin ABG Carboxyhemoglobin POC ABG HHb (Measured) ABG Methemoglobin ABG O2 Capacity [place]aro Test A-a O2 Difference Hgb O2 Saturation Vent Mode Mechanical Rate FiO2 Tidal Volume PEEP Crit Value Called To Crit Value Called By Crit Value Read Back Blood Gas Notified Time Sodium Potassium Chloride Carbon Dioxide Anion Gap BUN Creatinine Est GFR ( Amer) Est GFR (Non-Af Amer) Random Glucose Lactic Acid Calcium Phosphorus Magnesium Total Bilirubin AST ALT Alkaline Phosphatase Total Creatine Kinase Total Protein Albumin Globulin Albumin/Globulin Ratio Stool Occult Blood Positive H Alcohol, Quantitative Hep Bs Antibody, Quant <5 L Hep B Core IgM Ab Negative Hepatitis C Antibody Negative 08/23/18 08/23/18 08/23/18 18:16 20:47 20:47 WBC 16.5 H D RBC 3.37 L Hgb 11.6 L Hct 34.6 MCV 102.5 H MCH 34.3 H MCHC 33.5 RDW 18.7 H Plt Count 106 L MPV 9.9 Neut % (Auto) 87.4 H Lymph % (Auto) 6.8 L [place] % (Auto) 5.4 Eos % (Auto) 0.2 Baso % (Auto) 0.2 Neut # (Auto) 14.4 H Lymph # (Auto) 1.1 [place] # (Auto) 0.9 H Eos # (Auto) 0.0 Baso # (Auto) 0.0 PT INR APTT Fibrinogen D-Dimer, Quantitative pCO2 pO2 HCO3 ABG pH ABG Total CO2 ABG O2 Saturation ABG O2 Content ABG Base Excess ABG Hemoglobin ABG Carboxyhemoglobin POC ABG HHb (Measured) ABG Methemoglobin ABG O2 Capacity [place]aro Test A-a O2 Difference Hgb O2 Saturation Vent Mode Mechanical Rate FiO2 Tidal Volume PEEP Crit Value Called To Crit Value Called By Crit Value Read Back Blood Gas Notified Time Sodium 143 Potassium 3.5 L Chloride 103 Carbon Dioxide 22 Anion Gap 22 H BUN 117 H* Creatinine 3.8 H Est GFR ( Amer) 14 Est GFR (Non-Af Amer) 12 Random Glucose 154 H Lactic Acid Calcium 6.2 L Phosphorus 3.9 Magnesium 1.6 Total Bilirubin 1.5 H AST 117 H D ALT 46 Alkaline Phosphatase 190 H Total Creatine Kinase 1151 H Total Protein 6.4 Albumin 3.3 L Globulin 3.0 Albumin/Globulin Ratio 1.1 Stool Occult Blood Alcohol, Quantitative Hep Bs Antibody, Quant Hep B Core IgM Ab Hepatitis C Antibody 08/23/18 08/24/18 08/24/18 20:47 03:44 05:00 WBC 15.6 H RBC 3.21 L Hgb 10.9 L Hct 33.0 L MCV 102.6 H MCH 34.0 H MCHC 33.2 RDW 18.9 H Plt Count 85 L D MPV Neut % (Auto) Lymph % (Auto) [place] % (Auto) Eos % (Auto) Baso % (Auto) Neut # (Auto) Lymph # (Auto) [place] # (Auto) Eos # (Auto) Baso # (Auto) PT INR APTT Fibrinogen D-Dimer, Quantitative pCO2 28 L pO2 187 H HCO3 25.0 ABG pH 7.52 H ABG Total CO2 23.8 ABG O2 Saturation 99.8 H ABG O2 Content 8.8 L ABG Base Excess 0.1 ABG Hemoglobin 6.1 L ABG Carboxyhemoglobin 1.2 POC ABG HHb (Measured) 0.2 ABG Methemoglobin 2.3 ABG O2 Capacity 8.8 L Genaro Test Yes A-a O2 Difference 206.0 Hgb O2 Saturation 96.3 Vent Mode A/c Mechanical Rate 12 FiO2 60.0 Tidal Volume 450 PEEP 5 Crit Value Called To Monserrat toscano rn Crit Value Called By 6075 Crit Value Read Back Y Blood Gas Notified Time 350 Sodium Potassium Chloride Carbon Dioxide Anion Gap BUN Creatinine Est GFR ( Amer) Est GFR (Non-Af Amer) Random Glucose Lactic Acid 4.4 H* Calcium Phosphorus Magnesium Total Bilirubin AST ALT Alkaline Phosphatase Total Creatine Kinase Total Protein Albumin Globulin Albumin/Globulin Ratio Stool Occult Blood Alcohol, Quantitative Hep Bs Antibody, Quant Hep B Core IgM Ab Hepatitis C Antibody 08/24/18 08/24/18 08/24/18 05:00 11:50 13:45 WBC RBC Hgb Hct MCV MCH MCHC RDW Plt Count MPV Neut % (Auto) Lymph % (Auto) [place] % (Auto) Eos % (Auto) Baso % (Auto) Neut # (Auto) Lymph # (Auto) [place] # (Auto) Eos # (Auto) Baso # (Auto) PT 12.8 INR 1.1 APTT 38.6 H Fibrinogen 833 H* D-Dimer, Quantitative 7701 H pCO2 pO2 HCO3 ABG pH ABG Total CO2 ABG O2 Saturation ABG O2 Content ABG Base Excess ABG Hemoglobin ABG Carboxyhemoglobin POC ABG HHb (Measured) ABG Methemoglobin ABG O2 Capacity [place] Test A-a O2 Difference Hgb O2 Saturation Vent Mode Mechanical Rate FiO2 Tidal Volume PEEP Crit Value Called To Crit Value Called By Crit Value Read Back Blood Gas Notified Time Sodium 144 140 Potassium 3.4 L 3.7 Chloride 102 102 Carbon Dioxide 24 23 Anion Gap 21 H 19 BUN 122 H* 64 H Creatinine 3.6 H 2.6 H Est GFR ( Amer) 15 22 Est GFR (Non-Af Amer) 12 18 Random Glucose 143 H 105 Lactic Acid Calcium 5.7 L* 6.5 L Phosphorus Magnesium Total Bilirubin AST ALT Alkaline Phosphatase Total Creatine Kinase Total Protein Albumin Globulin Albumin/Globulin Ratio Stool Occult Blood Alcohol, Quantitative < 10 Hep Bs Antibody, Quant Hep B Core IgM Ab Hepatitis C Antibody - Imaging and Cardiology CT scan - abdomen Status: Image reviewed by me, Report reviewed by me Assessment & Plan (1) Colitis Assessment and Plan: Pancolitis likely from [place]hem[place] prior to patient brought to ER. Continue IV antibiotics and maintain hydration to allow adequate intestinal perfusion Status: Acute Priority: High
--- NOTE | 2018-08-24 17:27 | CT ---
Date of service: 08/24/2018 PROCEDURE: CT Abdomen and Pelvis with contrast HISTORY: rule out ischemic bowel, lactic acidosis COMPARISON: 08/22/2018. TECHNIQUE: Oral contrast only. Radiation dose: Total exam DLP = <inf_radiation_dlp> mGy-cm. This CT exam was performed using one or more of the following dose reduction techniques: Automated exposure control, adjustment of the mA and/or kV according to patient size, and/or use of iterative reconstruction technique. FINDINGS: LOWER THORAX: Persistent lower lobe atelectasis right base greater than left. LIVER: Unremarkable. No gross lesion or ductal dilatation. GALLBLADDER AND BILE DUCTS: Porcelain gallbladder/gallstones unchanged. PANCREAS: Unremarkable. No gross lesion or ductal dilatation. SPLEEN: Unremarkable. ADRENALS: Unremarkable. No mass. KIDNEYS AND URETERS: Unremarkable. No hydronephrosis. No solid mass. VASCULATURE: Atherosclerotic calcification and mural plaque present. Findings are seen throughout the aorta which is non aneurysmal. BOWEL: Redemonstration of colitis primarily affecting right harry colon. Fluid-filled left harry colon. Nasogastric tube in a decompressed stomach. Diffuse dilatation of the small bowel. A more normal caliber terminal ileum No evidence of pneumatosis. APPENDIX: Persistent periappendiceal inflammatory change without evidence florid appendicitis. PERITONEUM: Unremarkable. No free fluid. No free air. LYMPH NODES: Unremarkable. No enlarged lymph nodes. BLADDER: Segal catheter identified in a decompressed urinary bladder. REPRODUCTIVE: Unremarkable. BONES: No acute fracture. OTHER FINDINGS: Cutaneous and subcutaneous soft tissue prominence lower abdomen and left hemipelvis. IMPRESSION: Worsening colitis particularly right harry colon. Fluid-filled left harry colon without evidence of florid colitis. Distended small bowel without focal point of obstruction. Additional benign and/or incidental findings described above.
--- NOTE | 2018-08-24 18:27 | CP.PCM.PN ---
Objective - Vital Signs/Intake and Output Vital Signs (last 24 hours): Temp Pulse Resp BP Pulse Ox 98.5 F 92 H 26 H 110/59 L 100 08/24/18 12:00 08/24/18 14:00 08/24/18 14:00 08/24/18 14:00 08/24/18 14:00 Intake and Output: 08/24/18 08/24/18 06:59 18:59 Intake Total 1326 1850 Output Total 10 Balance 1316 1850 - Medications Medications: Current Medications Acetaminophen (Tylenol 650 Mg Supp) 650 mg CA Q6 PRN PRN Reason: Fever >100.4 F Last Admin: 08/23/18 16:24 Dose: 650 mg Calcium Carbonate (Oscal) 500 mg PO TID [facility] Last Admin: 08/24/18 17:36 Dose: 500 mg Folic Acid (Folic Acid) 1 mg PO DAILY [facility] Last Admin: 08/24/18 11:25 Dose: 1 mg Heparin Sodium (Porcine) (Heparin) 5,000 units SC Q12 [facility]; Protocol Last Admin: 08/24/18 10:01 Dose: 5,000 units Piperacillin Sod/Tazobactam (Sod 2.25 gm/ Sodium Chloride) 100 mls @ 100 mls/hr IVPB Q8 [facility]; Protocol Last Admin: 08/24/18 17:37 Dose: 100 mls/hr Ceftriaxone Sodium 1 gm/ (Sodium Chloride) 100 mls @ 100 mls/hr IVPB DAILY [facility]; Protocol Last Admin: 08/24/18 10:01 Dose: 100 mls/hr Sodium Chloride (Sodium Chloride 0.9%) 1,000 mls @ 125 mls/hr IV .Q8H [facility] Stop: 08/25/18 11:29 Last Admin: 08/24/18 12:59 Dose: 125 mls/hr Pantoprazole Sodium (Protonix Inj) 40 mg IVP DAILY [facility] Last Admin: 08/24/18 10:00 Dose: 40 mg Thiamine HCl (Vitamin B1 Inj) 100 mg IM DAILY [facility] Last Admin: 08/24/18 11:24 Dose: 100 mg - Labs Labs: 08/24/18 05:00 08/24/18 13:45 PT 12.8 Seconds (9.8-13.1) 08/24/18 11:50 INR 1.1 08/24/18 11:50 APTT 38.6 Seconds (25.6-37.1) H 08/24/18 11:50
--- NOTE | 2018-08-24 19:03 | CP.PCM.CON ---
History of Present Illness - History of Present Illness History of Present Illness: General Surgery Consult for Dr. Al Reason for consult: colitis 73 F with PMH that includes ETOH abuse, HTN, HLD, COPD, anxiety, bipolar disorder, colonic polyps, squamous cell CA mouth/neck (2009), osteoporosis, PTSD, Schizophrenia who was admitted for rhabdo, LESLIE on HD, and septic shock. Patient was found down at home by maintenance workers today covered in feces. EMS was called and brought to ED. ER intubated for airway protection. Code sepsis was called at admission. Patient still remains with elevated lactic acid and WBC. CK and BUN/Cr also still elevated. ROS unobtainable. PMH: as above PSH: oropharyngeal cancer s/p resection 2002, Hysterectomy All: NKDA Review of Systems - Review of Systems All systems: reviewed and no additional remarkable complaints except (as per HPI) Past Patient History - Infectious Disease Hx of Infectious Diseases: None - Tetanus Immunizations Tetanus Immunization: Unknown - Past Medical History & Family History Past Medical History?: Yes - Past Social History Smoking Status: Former Smoker Alcohol: Other (Hx ETOH abuse) Home Situation {Lives}: Alone - CARDIAC Hx Cardiac Disorders: Yes Hx Congestive Heart Failure: No Hx Hypercholesterolemia: Yes Hx Hypertension: Yes - PULMONARY Hx Respiratory Disorders: Yes Hx Bronchitis: Yes Hx Chronic Obstructive Pulmonary Disease (COPD): Yes Hx Pneumonia: Yes - NEUROLOGICAL Hx Neurological Disorder: Yes Hx Dementia: Yes Hx Seizures: No Hx Transient Ischemic Attacks (TIA): No - HEENT Hx HEENT Problems: Yes Hx Cataracts: Yes - RENAL Hx Chronic Kidney Disease: No - ENDOCRINE/METABOLIC Hx Endocrine Disorders: No Hx Hypothyroidism: No - HEMATOLOGICAL/ONCOLOGICAL Hx Blood Disorders: No Hx Human Immunodeficiency Virus (HIV): No - INTEGUMENTARY Hx Dermatological Problems: Yes Hx Squamous Cell: Yes (No Chemo treatment; surgery 10 yrs ago at [facility]) - MUSCULOSKELETAL/RHEUMATOLOGICAL Hx Musculoskeletal Disorders: Yes Hx Arthritis: Yes Hx Falls: Yes Hx Fractures: Yes (right wrist fracture, rib fx) Hx Osteoporosis: Yes Hx Rheumatoid Arthritis: No - GASTROINTESTINAL Hx Gastrointestinal Disorders: No - GENITOURINARY/GYNECOLOGICAL Hx Genitourinary Disorders: No Hx Sexually Transmitted Disorders: No - PSYCHIATRIC Hx Psychophysiologic Disorder: Yes Hx Anxiety: Yes Hx Bipolar Disorder: Yes Hx Depression: Yes Hx Post Traumatic Stress Disorder: Yes Hx Schizophrenia: Yes Hx Substance Use: No - SURGICAL HISTORY Hx Surgeries: Yes Hx Hysterectomy: Yes (Partial) Other/Comment: mouth and neck CA SX - ANESTHESIA Hx Anesthesia: Yes Hx Anesthesia Reactions: No Hx Malignant Hyperthermia: No Meds Allergies/Adverse Reactions: Allergies Allergy/AdvReac Type Severity Reaction Status Date / Time No Known Allergies Allergy Verified 08/22/18 14:40 - Medications Medications: Current Medications Acetaminophen (Tylenol 650 Mg Supp) 650 mg [place] Q6 PRN PRN Reason: Fever >100.4 F Last Admin: 08/23/18 16:24 Dose: 650 mg Calcium Carbonate (Oscal) 500 mg PO TID [facility] Last Admin: 08/24/18 17:36 Dose: 500 mg Folic Acid (Folic Acid) 1 mg PO DAILY [facility] Last Admin: 08/24/18 11:25 Dose: 1 mg Heparin Sodium (Porcine) (Heparin) 5,000 units SC Q12 [facility]; Protocol Last Admin: 08/24/18 10:01 Dose: 5,000 units Piperacillin Sod/Tazobactam (Sod 2.25 gm/ Sodium Chloride) 100 mls @ 100 mls/hr IVPB Q8 [facility]; Protocol Last Admin: 08/24/18 17:37 Dose: 100 mls/hr Sodium Chloride (Sodium Chloride 0.9%) 1,000 mls @ 125 mls/hr IV .Q8H [facility] Stop: 08/25/18 11:29 Last Admin: 08/24/18 12:59 Dose: 125 mls/hr Metronidazole (Flagyl 500mg/100ml Ns) 100 mls @ 100 mls/hr IVPB Q8H [facility]; Protocol Pantoprazole Sodium (Protonix Inj) 40 mg IVP DAILY [facility] Last Admin: 08/24/18 10:00 Dose: 40 mg Thiamine HCl (Vitamin B1 Inj) 100 mg IM DAILY [facility] Last Admin: 08/24/18 11:24 Dose: 100 mg Physical Exam - Constitutional Appears: Toxic, Chronically Ill - Head Exam Head Exam: ATRAUMATIC, NORMOCEPHALIC - Eye Exam Additional comments: no corneal reflex - ENT Exam ENT Exam: Mucous Membranes Dry Additional comments: no gag or cough reflex - Respiratory Exam Additional comments: intubated on PRVC - Cardiovascular Exam Cardiovascular Exam: REGULAR RHYTHM - GI/Abdominal Exam GI & Abdominal Exam: Normal Bowel Sounds, Soft. absent: Distended, Firm, Guarding, Hernia, Rebound, Rigid, Tenderness - Extremities Exam Additional comments: lower extremities mottled - Neurological Exam Neurological exam: Altered Additional comments: GCS3T - Psychiatric Exam Psychiatric exam: Flat Affect - Skin Skin Exam: Dry Additional comments: lower ext mottled Results - Vital Signs Recent Vital Signs: Last Vital Signs Temp 98.5 F 08/24/18 12:00 Pulse 92 H 08/24/18 14:00 Resp 26 H 08/24/18 14:00 BP 110/59 L 08/24/18 14:00 Pulse Ox 100 08/24/18 14:00 - Labs Result Diagrams: 08/24/18 05:00 08/24/18 13:45 Labs: Laboratory Results - last 24 hr 08/23/18 08/23/18 08/23/18 09:25 20:47 20:47 WBC 16.5 H D RBC 3.37 L Hgb 11.6 L Hct 34.6 MCV 102.5 H MCH 34.3 H MCHC 33.5 RDW 18.7 H Plt Count 106 L MPV 9.9 Neut % (Auto) 87.4 H Lymph % (Auto) 6.8 L Mckean % (Auto) 5.4 Eos % (Auto) 0.2 Baso % (Auto) 0.2 Neut # (Auto) 14.4 H Lymph # (Auto) 1.1 Mckean # (Auto) 0.9 H Eos # (Auto) 0.0 Baso # (Auto) 0.0 PT INR APTT Fibrinogen D-Dimer, Quantitative pCO2 pO2 HCO3 ABG pH ABG Total CO2 ABG O2 Saturation ABG O2 Content ABG Base Excess ABG Hemoglobin ABG Carboxyhemoglobin POC ABG HHb (Measured) ABG Methemoglobin ABG O2 Capacity Genaro Test A-a O2 Difference Hgb O2 Saturation Vent Mode Mechanical Rate FiO2 Tidal Volume PEEP Crit Value Called To Crit Value Called By Crit Value Read Back Blood Gas Notified Time Sodium 143 Potassium 3.5 L Chloride 103 Carbon Dioxide 22 Anion Gap 22 H BUN 117 H* Creatinine 3.8 H Est GFR ( Amer) 14 Est GFR (Non-Af Amer) 12 Random Glucose 154 H Lactic Acid Calcium 6.2 L Phosphorus 3.9 Magnesium 1.6 Total Bilirubin 1.5 H AST 117 H D ALT 46 Alkaline Phosphatase 190 H Total Protein 6.4 Albumin 3.3 L Globulin 3.0 Albumin/Globulin Ratio 1.1 Alcohol, Quantitative Hep Bs Antibody, Quant <5 L 08/23/18 08/24/18 08/24/18 20:47 03:44 05:00 WBC 15.6 H RBC 3.21 L Hgb 10.9 L Hct 33.0 L MCV 102.6 H MCH 34.0 H MCHC 33.2 RDW 18.9 H Plt Count 85 L D MPV Neut % (Auto) Lymph % (Auto) Mckean % (Auto) Eos % (Auto) Baso % (Auto) Neut # (Auto) Lymph # (Auto) Mckean # (Auto) Eos # (Auto) Baso # (Auto) PT INR APTT Fibrinogen D-Dimer, Quantitative pCO2 28 L pO2 187 H HCO3 25.0 ABG pH 7.52 H ABG Total CO2 23.8 ABG O2 Saturation 99.8 H ABG O2 Content 8.8 L ABG Base Excess 0.1 ABG Hemoglobin 6.1 L ABG Carboxyhemoglobin 1.2 POC ABG HHb (Measured) 0.2 ABG Methemoglobin 2.3 ABG O2 Capacity 8.8 L Genaro Test Yes A-a O2 Difference 206.0 Hgb O2 Saturation 96.3 Vent Mode A/c Mechanical Rate 12 FiO2 60.0 Tidal Volume 450 PEEP 5 Crit Value Called To Monserrat toscano rn Crit Value Called By 6075 Crit Value Read Back Y Blood Gas Notified Time 350 Sodium Potassium Chloride Carbon Dioxide Anion Gap BUN Creatinine Est GFR ( Amer) Est GFR (Non-Af Amer) Random Glucose Lactic Acid 4.4 H* Calcium Phosphorus Magnesium Total Bilirubin AST ALT Alkaline Phosphatase Total Protein Albumin Globulin Albumin/Globulin Ratio Alcohol, Quantitative Hep Bs Antibody, Quant 08/24/18 08/24/18 08/24/18 05:00 11:50 13:45 WBC RBC Hgb Hct MCV MCH MCHC RDW Plt Count MPV Neut % (Auto) Lymph % (Auto) Mckean % (Auto) Eos % (Auto) Baso % (Auto) Neut # (Auto) Lymph # (Auto) Mckean # (Auto) Eos # (Auto) Baso # (Auto) PT 12.8 INR 1.1 APTT 38.6 H Fibrinogen 833 H* D-Dimer, Quantitative 7701 H pCO2 pO2 HCO3 ABG pH ABG Total CO2 ABG O2 Saturation ABG O2 Content ABG Base Excess ABG Hemoglobin ABG Carboxyhemoglobin POC ABG HHb (Measured) ABG Methemoglobin ABG O2 Capacity Genaro Test A-a O2 Difference Hgb O2 Saturation Vent Mode Mechanical Rate FiO2 Tidal Volume PEEP Crit Value Called To Crit Value Called By Crit Value Read Back Blood Gas Notified Time Sodium 144 140 Potassium 3.4 L 3.7 Chloride 102 102 Carbon Dioxide 24 23 Anion Gap 21 H 19 BUN 122 H* 64 H Creatinine 3.6 H 2.6 H Est GFR ( Amer) 15 22 Est GFR (Non-Af Amer) 12 18 Random Glucose 143 H 105 Lactic Acid Calcium 5.7 L* 6.5 L Phosphorus Magnesium Total Bilirubin AST ALT Alkaline Phosphatase Total Protein Albumin Globulin Albumin/Globulin Ratio Alcohol, Quantitative < 10 Hep Bs Antibody, Quant Assessment & Plan - Assessment and Plan (Free Text) Assessment: 73F who presents with septic shock, lactic acidosis, rhabdo, LESLIE on HD, and respiratory failure Plan: -NPO -NGT -IVF -HD as per Nephro -CT abd/pelvis results noted, shows colitis -IV abx -f/u labs and ABG shock panel -f/u C.diff -Monitor for bowel function -Serial abd exams -Management as per ICU -Discussed with Dr. Servando Razo PGY2 - Date & Time Date: 08/24/18 Time: 12:00
[2018-08-24 19:20] LABS: BASO % 0.1 % (0.0-2.0); EOS % 0.3 % (0.0-4.0); HEMOGLOBIN 9.6 g/dL (12.0-16.0); LYMPH # 0.9 K/uL (1.0-4.3); LYMPH % 6.2 % (20.0-40.0); MEAN CELL VOLUME 103.5 fl (81.0-99.0); MEAN CORPUSCULAR HEMOGLOBIN 34.2 pg (27.0-31.0); MEAN PLATELET VOLUME 10.2 fl (7.2-11.7); MONO % 7.2 % (0.0-10.0); NEUT # 12.5 K/uL (1.8-7.0); NEUT % 86.2 % (50.0-75.0); NRBC % 0.8 % (0.0-0.0); RBC 2.82 Mil/uL (3.80-5.20); RED CELL DISTRIBUTION WIDTH 18.8 % (11.5-14.5); WHITE BLOOD COUNT 14.4 K/uL (4.8-10.8)
[2018-08-24 19:33] LABS: INR 1.2; PROTHROMBIN TIME 13.4 Seconds (9.8-13.1)
[2018-08-24 19:34] LABS: ALB/GLOB RATIO 1.1 (1.0-2.1); ALBUMIN 2.9 g/dL (3.5-5.0); CALCIUM 6.5 mg/dL (8.4-10.2)
[2018-08-24 19:35] LABS: PARTIAL THROMBOPLASTIN TIME 35.1 Seconds (25.6-37.1)
[2018-08-24] MEDS: metroNIDAZOLE 500mg/100ml NS 100 ML IVPB SCH (20:22)
[2018-08-24 20:30] LABS: ABG ALLEN TEST YES; ARTERIAL BLOOD GAS O2 SAT 99.5 % (95-98); ARTERIAL BLOOD GAS PCO2 28 mm/Hg (35-45); ARTERIAL BLOOD GAS PH 7.46 (7.35-7.45); ARTERIAL BLOOD GAS PO2 189 mm/Hg (80-100); ARTERIAL BLOOD GAS TCO2 20.8 mmol/L (22-28)
[2018-08-25] MEDS: metroNIDAZOLE 500mg/100ml NS 100 ML IVPB SCH ×3 (03:11→19:45)
[2018-08-25] MEDS: Sodium Chloride 0.9% 1,000 ML IV SCH (03:11)
[2018-08-25 05:32] LABS: BASO % 0.2 % (0.0-2.0); EOS # 0.1 K/uL (0.0-0.7); EOS % 0.4 % (0.0-4.0); HEMOGLOBIN 9.2 g/dL (12.0-16.0); LYMPH # 0.8 K/uL (1.0-4.3); LYMPH % 4.9 % (20.0-40.0); MEAN CORPUSCULAR HEMOGLOBIN 34.5 pg (27.0-31.0); MEAN CORPUSCULAR HGB CONC 33.4 g/dL (33.0-37.0); MEAN PLATELET VOLUME 10.4 fl (7.2-11.7); MONO # 0.9 K/uL (0.0-0.8); MONO % 5.4 % (0.0-10.0); NEUT # 15.5 K/uL (1.8-7.0); NEUT % 89.1 % (50.0-75.0); NRBC % 0.6 % (0.0-0.0); RBC 2.66 Mil/uL (3.80-5.20); RED CELL DISTRIBUTION WIDTH 18.6 % (11.5-14.5); WHITE BLOOD COUNT 17.3 K/uL (4.8-10.8)
[2018-08-25 05:40] LABS: ALBUMIN 2.6 g/dL (3.5-5.0); CALCIUM 6.6 mg/dL (8.4-10.2)
[2018-08-25 05:51] LABS: ABG ALLEN TEST YES; ARTERIAL BLOOD GAS O2 SAT 99.6 % (95-98); ARTERIAL BLOOD GAS PCO2 26 mm/Hg (35-45); ARTERIAL BLOOD GAS PH 7.46 (7.35-7.45); ARTERIAL BLOOD GAS PO2 132 mm/Hg (80-100); ARTERIAL BLOOD GAS TCO2 19.3 mmol/L (22-28)
[2018-08-25 06:30] LABS: SQUAMOUS EPITHIAL 10 /hpf (0-5); URINE BACTERIA OCC (<OCC); URINE BILIRUBIN NEGATIVE (NEGATIVE); URINE BLOOD LARGE (NEGATIVE); URINE CLARITY TURBID (Clear); URINE COLOR AMBER (YELLOW); URINE GLUCOSE (UA) NEG (NEGATIVE); URINE LEUKOCYTE ESTERASE MOD Leu/uL (Negative); URINE PROTEIN 100 mg/dL (NEGATIVE); URINE UROBILINOGEN 0.2-1.0 mg/dL (0.2-1.0)
--- NOTE | 2018-08-25 08:02 | CP.PCM.PN ---
Subjective - Date & Time of Evaluation Date of Evaluation: 08/25/18 Time of Evaluation: 06:50 - Subjective Subjective: General Surgery Note for Dr. Torres Patient seen and examined at bedside. Patient remains intubated and on mechanical ventilation. Patient receiving video EEG. GCS 3T. Objective - Vital Signs/Intake and Output Vital Signs (last 24 hours): Temp Pulse Resp BP Pulse Ox 100.0 F H 88 23 124/53 L 100 08/25/18 06:00 08/25/18 06:00 08/25/18 06:00 08/25/18 06:00 08/25/18 06:00 Intake and Output: 08/25/18 08/25/18 06:59 18:59 Intake Total 1400 Output Total 35 Balance 1365 - Medications Medications: Current Medications Acetaminophen (Tylenol 650 Mg Supp) 650 mg DE Q6 PRN PRN Reason: Fever >100.4 F Last Admin: 08/23/18 16:24 Dose: 650 mg Calcium Carbonate (Oscal) 500 mg PO TID [facility] Last Admin: 08/24/18 17:36 Dose: 500 mg Folic Acid (Folic Acid) 1 mg PO DAILY [facility] Last Admin: 08/24/18 11:25 Dose: 1 mg Heparin Sodium (Porcine) (Heparin) 5,000 units SC Q12 [facility]; Protocol Last Admin: 08/24/18 21:00 Dose: 5,000 units Piperacillin Sod/Tazobactam (Sod 2.25 gm/ Sodium Chloride) 100 mls @ 100 mls/hr IVPB Q8 [facility]; Protocol Last Admin: 08/25/18 00:38 Dose: 100 mls/hr Sodium Chloride (Sodium Chloride 0.9%) 1,000 mls @ 125 mls/hr IV .Q8H [facility] Stop: 08/25/18 11:29 Last Admin: 08/25/18 03:11 Dose: 125 mls/hr Metronidazole (Flagyl 500mg/100ml Ns) 100 mls @ 100 mls/hr IVPB Q8H [facility]; Protocol Last Admin: 08/25/18 03:11 Dose: 100 mls/hr Pantoprazole Sodium (Protonix Inj) 40 mg IVP DAILY [facility] Last Admin: 08/24/18 10:00 Dose: 40 mg Thiamine HCl (Vitamin B1 Inj) 100 mg IM DAILY [facility] Last Admin: 08/24/18 11:24 Dose: 100 mg - Labs Labs: 08/25/18 05:00 08/25/18 05:00 PT 13.4 Seconds (9.8-13.1) H 08/24/18 19:15 INR 1.2 08/24/18 19:15 APTT 35.1 Seconds (25.6-37.1) 08/24/18 19:15 - Additional Findings Additional findings: - Constitutional Appears: Toxic, Chronically Ill - Head Exam Head Exam: ATRAUMATIC, NORMOCEPHALIC - Eye Exam Additional comments: no corneal reflex - ENT Exam ENT Exam: Mucous Membranes Dry Additional comments: no gag or cough reflex - Respiratory Exam Additional comments: intubated on PRVC - Cardiovascular Exam Cardiovascular Exam: REGULAR RHYTHM - GI/Abdominal Exam GI & Abdominal Exam: Normal Bowel Sounds, Soft. absent: Distended, Firm, Guarding, Hernia, Rebound, Rigid, Tenderness - Extremities Exam Additional comments: lower extremities mottled but with improvement - Neurological Exam Neurological exam: Altered Additional comments: GCS3T - Psychiatric Exam Psychiatric exam: Flat Affect - Skin Skin Exam: Dry Additional comments: lower ext mottled but with improvement Assessment and Plan - Assessment and Plan (Free Text) Assessment: 73F who presents with septic shock, lactic acidosis, rhabdo, LESLIE on HD, and respiratory failure Plan: -May start trickle feeds -NGT -IVF -HD as per Nephro -IV abx -f/u C.diff -Management as per ICU -Discussed with Dr. Servando Razo PGY2
--- NOTE | 2018-08-25 09:15 | PCM.VEEG ---
Video EEG - Procedure Start Date: 08/24/18 Start Time: 19:35 End Date: 08/25/18 End Time: 09:00 Technical Summary: DATA ACQUISITION: This was a multichannel inpatient video-EEG, a minimum of 22 channels were uti lized, performed in accordance with recommendations specified by the [place] [employer] (Dianelys Aldana et al. ACNS Guideline 1: Minimum Technical Requirements for Performing Clinical Electroencephalography. Journal of Clinical Neurophysiology 2016;33:303-7). The 10-20 electrode placement system was utilized in accordance with guidelines detailed by the International Federation of Clinical Neurophysiology (Aury Mckeon et al. The Ten-Twenty Electrode System of the International Federation. Recommendations for the Practice of Clinical Neurophysiology: Guidelines of the International Federation of Clinical Physiology 1999; EEG Suppl. 52.). DATA REVIEW / SPIKE DETECTION / DIGITAL ANALYSIS: The entire EEG was scanned and reviewed. Synchronized audio and video recording were reviewed at the time of each alarm and whenever an abnormality or suspicious activity was noted. The entire recording was analyzed utilizing an automated digital spike and seizure analysis program and all automatic spike and seizure detections were manually reviewed. A compressed spectral array was displayed and reviewed alongside the raw EEG tracings. In addition, further analysis of the EEG was performed when abnormalities were identified, including montage changes, dipole source localization, and frequency band identification. Video portion of the study is necessary to correlate abnormal EEG activity with clinical behavior. This study was attended 24 hours per day. - Interpretation Description of the study: Indication status epilepticus EEG Finding during wakefulness: There was not discernible awake EEG background, there was continuous diffuse bilateral attenuation with frequencies in the 4 to 5 Hz. EEG was non reactive EEG Finding during sleep: Normal sleep architecture was not seen. Interictal non-epileptiform abnormalities: there was intermittent left FT slowing at 2 to 3 Hz. Interictal epileptiform abnormalities: None Ictal epileptiform abnormalities: None - Impression Impression: This was an abnormal video EEG, monitoring study, due to the presence of: 1- Severe background slowing/attenuation . 2- Left hemispheric slowing and rare sharps. No seizures not in status epilepticus. INTERPRETATION: The above mentioned findings are in keeping with a severe non specific diffuse disturbance of cortical activity. This is in keeping with a diffuse ibanez matter dysfunction. The findings do not suggest a specific etiology. Findings are also in keeping with a focal cortical abnormality involving the left FT region.
[2018-08-25] MEDS: Thiamine 100 mg/ml Inj IM SCH (10:18)
--- NOTE | 2018-08-25 10:20 | CP.CCUPN ---
<Jennifer Mejia - Last Filed: 08/25/18 09:57> CCU Subjective - Physician Review Subjective (Free Text): Pt seen and examined this am. Flexion of Left LE to pain, +Gag/Cough, Lateral Nystagmus GCS 5 Currently intubated on MV w/ FIO2 60% Brain MRI report pending 08/25/18 10:00 CCU Objective - Vital Signs / Intake & Output Vital Signs (Last 4 hours): Vital Signs Temp Pulse Resp BP Pulse Ox 08/25/18 06:00 100.0 F H 88 23 124/53 L 100 08/25/18 04:00 100.0 F H 91 H 22 131/62 100 Intake and Output (Last 8hrs): Intake & Output 08/24/18 08/25/18 08/25/18 22:59 06:59 14:59 Intake Total 1700 950 Output Total 35 Balance 1700 915 Weight 127 lb Intake: IV 250 750 Intake, Piggyback 650 200 Free Water Flush 800 Output: Urine 35 Urethral (Segal) 35 Other: # Bowel Movements 1 1 - Physical Exam Head: Positive for: Atraumatic, Normocephalic Pupils: Positive for: Other (no corneal reflex, no doll's eyes, + NYSTAGMUS ). Negative for: PERRL, Sluggish Extroacular Muscles: Positive for: EOMI Conjunctiva: Positive for: Normal. Negative for: Injected, Icteric Neck: Positive for: Normal Range of Motion, Trachea Midline. Negative for: Meningeal Signs, MIDLINE TENDERNESS, Paraspinal Tenderness, JVD, Lymphadenopathy, Bruit, Other Respiratory/Chest: Positive for: Decreased Breath Sounds, Rhonchi. Negative for: Respiratory Distress, Accessory Muscle Use Cardiovascular: Positive for: Regular Rate and Rhythm, Normal S1, S2, Peripheal Pulses Present. Negative for: Murmurs, Irregular Rhythm Abdomen: Positive for: Normal Bowel Sounds. Negative for: Distention Lower Extremity: Positive for: Other (+Mottling +cyanotic toes) Neurological: Negative for: GCS=15, CN II-XII Intact, Speech Normal Psychiatric: Negative for: Alert, Oriented x 3 (Patient is unresponsive to painful stimuli, no corneal reflex, no doll's eyes) - Medications Active Medications: Active Medications Generic Name Dose Route Start Last Admin Trade Name Freq PRN Reason Stop Dose Admin Acetaminophen 650 mg 08/22/18 23:49 08/23/18 16:24 Tylenol 650 Mg Supp DE 650 mg Q6 PRN Administration Fever >100.4 F Calcium Carbonate 500 mg 08/24/18 13:00 08/24/18 17:36 Oscal PO 500 mg TID BHUPENDRA Administration Folic Acid 1 mg 08/24/18 09:00 08/24/18 11:25 Folic Acid PO 1 mg DAILY BHUPENDRA Administration Heparin Sodium (Porcine) 5,000 units 08/23/18 21:00 08/24/18 21:00 Heparin SC 5,000 units Q12 BHUPENDRA Administration Protocol Piperacillin Sod/Tazobactam 100 mls @ 100 mls/hr 08/23/18 01:00 08/25/18 00:38 Sod 2.25 gm/ Sodium Chloride IVPB 100 mls/hr Q8 BHUPENDRA Administration Protocol Sodium Chloride 1,000 mls @ 125 mls/hr 08/24/18 11:30 08/25/18 03:11 Sodium Chloride 0.9% IV 08/25/18 11:29 125 mls/hr .Q8H BHUPENDRA Administration Metronidazole 100 mls @ 100 mls/hr 08/24/18 19:00 08/25/18 03:11 Flagyl 500mg/100ml Ns IVPB 100 mls/hr Q8H BHUPENDRA Administration Protocol Calcium Gluconate 1,000 mg/ 110 mls @ 100 mls/hr 08/25/18 06:50 Sodium Chloride IVPB 08/25/18 07:55 ONCE ONE Pantoprazole Sodium 40 mg 08/23/18 17:00 08/24/18 10:00 Protonix Inj IVP 40 mg DAILY BHUPENDRA Administration Thiamine HCl 100 mg 08/24/18 09:00 08/24/18 11:24 Vitamin B1 Inj IM 100 mg DAILY BHUPENDRA Administration - Patient Studies Lab Studies: Microbiology Studies 08/24/18 11:50 Gram Stain - Final Trachasp 08/22/18 19:50 MRSA Culture (Admit) - Final Naris MRSA NOT DETECTED 08/22/18 16:14 Blood Culture - Preliminary Blood-Venous NO GROWTH AFTER 48 HOURS 08/22/18 15:50 Blood Culture - Preliminary Blood-Venous NO GROWTH AFTER 48 HOURS 08/22/18 17:20 Urine Culture - Final Urine,Segal <10,000 CFU/ML. MULTIPLE SPECIES. PROBABLE CONTAMINATION. Lab Studies 08/25/18 08/25/18 08/25/18 Range/Units 05:34 05:15 05:00 WBC (4.8-10.8) K/uL RBC (3.80-5.20) Mil/uL Hgb (12.0-16.0) g/dL Hct (34.0-47.0) % MCV (81.0-99.0) fl MCH (27.0-31.0) pg MCHC (33.0-37.0) g/dL RDW (11.5-14.5) % Plt Count (130-400) K/uL MPV (7.2-11.7) fl Neut % (Auto) (50.0-75.0) % Lymph % (Auto) (20.0-40.0) % [place] % (Auto) (0.0-10.0) % Eos % (Auto) (0.0-4.0) % Baso % (Auto) (0.0-2.0) % Neut # (Auto) (1.8-7.0) K/uL Lymph # (Auto) (1.0-4.3) K/uL [place] # (Auto) (0.0-0.8) K/uL Eos # (Auto) (0.0-0.7) K/uL Baso # (Auto) (0.0-0.2) K/uL PT (9.8-13.1) Seconds INR APTT (25.6-37.1) Seconds Fibrinogen (200-400) mg/dl D-Dimer, Quantitative (0-230) ng/mlDDU pCO2 26 L (35-45) mm/Hg pO2 132 H (80-100) mm/Hg HCO3 22.0 (21-28) mmol/L ABG pH 7.46 H (7.35-7.45) ABG Total CO2 19.3 L (22-28) mmol/L ABG O2 Saturation 99.6 H (95-98) % ABG Base Excess -3.8 L (-2.0-3.0) mmol/L Genaro Test Yes ABG Potassium 3.4 L (3.6-5.2) mmol/L A-a O2 Difference 263.0 mm/Hg Glucose 92 (65-105) mg/dL Lactate 1.2 (0.7-2.1) mmol/L Vent Mode A/c Mechanical Rate 12 FiO2 60.0 % Tidal Volume 450 PEEP 5 Sodium 138.0 (132-148) mmol/l Potassium (3.6-5.0) MMOL/L Chloride 109.0 H (98-107) mmol/L Carbon Dioxide (22-30) mmol/L Anion Gap (10-20) BUN (7-17) mg/dl Creatinine (0.7-1.2) mg/dl Est GFR ( Amer) Est GFR (Non-Af Amer) Random Glucose (65-105) mg/dL Calcium (8.4-10.2) mg/dL Phosphorus (2.5-4.5) mg/dl Magnesium (1.6-2.3) MG/DL Total Bilirubin (0.2-1.3) mg/dl AST (14-36) U/L ALT (9-52) U/L Alkaline Phosphatase (38-126) U/L Ammonia < 9 L D (9-33) umol/L Total Protein (6.3-8.2) G/DL Albumin (3.5-5.0) g/dL Globulin (2.2-3.9) gm/dL Albumin/Globulin Ratio (1.0-2.1) 25-OH Vitamin D Total (30.0-100.0) NG/ML Procalcitonin (0.19-0.49) NG/ML Arterial Blood Potassium 3.4 L (3.6-5.2) mmol/L Urine Color Cherri (YELLOW) Urine Clarity Turbid (Clear) Urine pH 5.0 (5.0-8.0) Ur Specific [place] 1.017 (1.003-1.030) Urine Protein 100 (NEGATIVE) mg/dL Urine Glucose (UA) Neg (NEGATIVE) mg/dL Urine Ketones Negative (NEGATIVE) mg/dL Urine Blood Large (NEGATIVE) Urine Nitrate Negative (NEGATIVE) Urine Bilirubin Negative (NEGATIVE) Urine Urobilinogen 0.2-1.0 (0.2-1.0) mg/dL Ur Leukocyte Esterase Mod (Negative) Kelly/uL Urine RBC (Auto) 178 H (0-3) /hpf Urine Microscopic WBC 738 H (0-5) /hpf Ur Squamous Epith Cells 10 H (0-5) /hpf Urine Bacteria Occ H (<OCC) Urine Yeast (Budding) Many H (NEGATIVE) /hpf Alcohol, Quantitative (0-10) mg/dl Hep Bs Antibody, Quant (>or=10) mIU/mL 08/25/18 08/25/18 08/24/18 Range/Units 05:00 05:00 20:25 WBC 17.3 H (4.8-10.8) K/uL RBC 2.66 L (3.80-5.20) Mil/uL Hgb 9.2 L (12.0-16.0) g/dL Hct 27.4 L (34.0-47.0) % MCV 103.0 H (81.0-99.0) fl MCH 34.5 H (27.0-31.0) pg MCHC 33.4 (33.0-37.0) g/dL RDW 18.6 H (11.5-14.5) % Plt Count 62 L (130-400) K/uL MPV 10.4 (7.2-11.7) fl Neut % (Auto) 89.1 H (50.0-75.0) % Lymph % (Auto) 4.9 L (20.0-40.0) % [place] % (Auto) 5.4 (0.0-10.0) % Eos % (Auto) 0.4 (0.0-4.0) % Baso % (Auto) 0.2 (0.0-2.0) % Neut # (Auto) 15.5 H (1.8-7.0) K/uL Lymph # (Auto) 0.8 L (1.0-4.3) K/uL [place] # (Auto) 0.9 H (0.0-0.8) K/uL Eos # (Auto) 0.1 (0.0-0.7) K/uL Baso # (Auto) 0.0 (0.0-0.2) K/uL PT (9.8-13.1) Seconds INR APTT (25.6-37.1) Seconds Fibrinogen (200-400) mg/dl D-Dimer, Quantitative (0-230) ng/mlDDU pCO2 28 L (35-45) mm/Hg pO2 189 H (80-100) mm/Hg HCO3 23.0 (21-28) mmol/L ABG pH 7.46 H (7.35-7.45) ABG Total CO2 20.8 L (22-28) mmol/L ABG O2 Saturation 99.5 H (95-98) % ABG Base Excess -2.6 L (-2.0-3.0) mmol/L Genaro Test Yes ABG Potassium 3.6 (3.6-5.2) mmol/L A-a O2 Difference 204.0 mm/Hg Glucose 114 H (65-105) mg/dL Lactate 1.7 (0.7-2.1) mmol/L Vent Mode A/c Mechanical Rate 12 FiO2 60.0 % Tidal Volume 450 PEEP 5 Sodium 139 136.0 (132-148) mmol/l Potassium 3.5 L (3.6-5.0) MMOL/L Chloride 104 106.0 (98-107) mmol/L Carbon Dioxide 20 L (22-30) mmol/L Anion Gap 19 (10-20) BUN 81 H (7-17) mg/dl Creatinine 3.1 H (0.7-1.2) mg/dl Est GFR ( Amer) 18 Est GFR (Non-Af Amer) 15 Random Glucose 84 (65-105) mg/dL Calcium 6.6 L (8.4-10.2) mg/dL Phosphorus 4.1 (2.5-4.5) mg/dl Magnesium 1.6 (1.6-2.3) MG/DL Total Bilirubin 1.0 (0.2-1.3) mg/dl AST 1342 H (14-36) U/L ALT 259 H (9-52) U/L Alkaline Phosphatase 175 H (38-126) U/L Ammonia (9-33) umol/L Total Protein 5.3 L (6.3-8.2) G/DL Albumin 2.6 L (3.5-5.0) g/dL Globulin 2.7 (2.2-3.9) gm/dL Albumin/Globulin Ratio 1.0 (1.0-2.1) 25-OH Vitamin D Total (30.0-100.0) NG/ML Procalcitonin (0.19-0.49) NG/ML Arterial Blood Potassium 3.6 (3.6-5.2) mmol/L Urine Color (YELLOW) Urine Clarity (Clear) Urine pH (5.0-8.0) Ur Specific [place] (1.003-1.030) Urine Protein (NEGATIVE) mg/dL Urine Glucose (UA) (NEGATIVE) mg/dL Urine Ketones (NEGATIVE) mg/dL Urine Blood (NEGATIVE) Urine Nitrate (NEGATIVE) Urine Bilirubin (NEGATIVE) Urine Urobilinogen (0.2-1.0) mg/dL Ur Leukocyte Esterase (Negative) Kelly/uL Urine RBC (Auto) (0-3) /hpf Urine Microscopic WBC (0-5) /hpf Ur Squamous Epith Cells (0-5) /hpf Urine Bacteria (<OCC) Urine Yeast (Budding) (NEGATIVE) /hpf Alcohol, Quantitative (0-10) mg/dl Hep Bs Antibody, Quant (>or=10) mIU/mL 08/24/18 08/24/18 08/24/18 Range/Units 19:15 19:15 19:15 WBC 14.4 H (4.8-10.8) K/uL RBC 2.82 L (3.80-5.20) Mil/uL Hgb 9.6 L (12.0-16.0) g/dL Hct 29.1 L (34.0-47.0) % MCV 103.5 H (81.0-99.0) fl MCH 34.2 H (27.0-31.0) pg MCHC 33.0 (33.0-37.0) g/dL RDW 18.8 H (11.5-14.5) % Plt Count 69 L (130-400) K/uL MPV 10.2 (7.2-11.7) fl Neut % (Auto) 86.2 H (50.0-75.0) % Lymph % (Auto) 6.2 L (20.0-40.0) % [place] % (Auto) 7.2 (0.0-10.0) % Eos % (Auto) 0.3 (0.0-4.0) % Baso % (Auto) 0.1 (0.0-2.0) % Neut # (Auto) 12.5 H (1.8-7.0) K/uL Lymph # (Auto) 0.9 L (1.0-4.3) K/uL [place] # (Auto) 1.0 H (0.0-0.8) K/uL Eos # (Auto) 0.0 (0.0-0.7) K/uL Baso # (Auto) 0.0 (0.0-0.2) K/uL PT 13.4 H (9.8-13.1) Seconds INR 1.2 APTT 35.1 (25.6-37.1) Seconds Fibrinogen (200-400) mg/dl D-Dimer, Quantitative (0-230) ng/mlDDU pCO2 (35-45) mm/Hg pO2 (80-100) mm/Hg HCO3 (21-28) mmol/L ABG pH (7.35-7.45) ABG Total CO2 (22-28) mmol/L ABG O2 Saturation (95-98) % ABG Base Excess (-2.0-3.0) mmol/L Genaro Test ABG Potassium (3.6-5.2) mmol/L A-a O2 Difference mm/Hg Glucose (65-105) mg/dL Lactate (0.7-2.1) mmol/L Vent Mode Mechanical Rate FiO2 % Tidal Volume PEEP Sodium 136 (132-148) mmol/l Potassium 3.9 (3.6-5.0) MMOL/L Chloride 99 (98-107) mmol/L Carbon Dioxide 23 (22-30) mmol/L Anion Gap 18 (10-20) BUN 73 H (7-17) mg/dl Creatinine 2.5 H (0.7-1.2) mg/dl Est GFR ( Amer) 23 Est GFR (Non-Af Amer) 19 Random Glucose 114 H (65-105) mg/dL Calcium 6.5 L (8.4-10.2) mg/dL Phosphorus 4.8 H (2.5-4.5) mg/dl Magnesium 1.7 (1.6-2.3) MG/DL Total Bilirubin 1.2 (0.2-1.3) mg/dl AST 1930 H (14-36) U/L ALT 315 H D (9-52) U/L Alkaline Phosphatase 183 H (38-126) U/L Ammonia (9-33) umol/L Total Protein 5.6 L (6.3-8.2) G/DL Albumin 2.9 L (3.5-5.0) g/dL Globulin 2.7 (2.2-3.9) gm/dL Albumin/Globulin Ratio 1.1 (1.0-2.1) 25-OH Vitamin D Total (30.0-100.0) NG/ML Procalcitonin (0.19-0.49) NG/ML Arterial Blood Potassium (3.6-5.2) mmol/L Urine Color (YELLOW) Urine Clarity (Clear) Urine pH (5.0-8.0) Ur Specific [place] (1.003-1.030) Urine Protein (NEGATIVE) mg/dL Urine Glucose (UA) (NEGATIVE) mg/dL Urine Ketones (NEGATIVE) mg/dL Urine Blood (NEGATIVE) Urine Nitrate (NEGATIVE) Urine Bilirubin (NEGATIVE) Urine Urobilinogen (0.2-1.0) mg/dL Ur Leukocyte Esterase (Negative) Kelly/uL Urine RBC (Auto) (0-3) /hpf Urine Microscopic WBC (0-5) /hpf Ur Squamous Epith Cells (0-5) /hpf Urine Bacteria (<OCC) Urine Yeast (Budding) (NEGATIVE) /hpf Alcohol, Quantitative (0-10) mg/dl Hep Bs Antibody, Quant (>or=10) mIU/mL 08/24/18 08/24/18 08/24/18 Range/Units 14:45 13:45 11:50 WBC (4.8-10.8) K/uL RBC (3.80-5.20) Mil/uL Hgb (12.0-16.0) g/dL Hct (34.0-47.0) % MCV (81.0-99.0) fl MCH (27.0-31.0) pg MCHC (33.0-37.0) g/dL RDW (11.5-14.5) % Plt Count (130-400) K/uL MPV (7.2-11.7) fl Neut % (Auto) (50.0-75.0) % Lymph % (Auto) (20.0-40.0) % [place] % (Auto) (0.0-10.0) % Eos % (Auto) (0.0-4.0) % Baso % (Auto) (0.0-2.0) % Neut # (Auto) (1.8-7.0) K/uL Lymph # (Auto) (1.0-4.3) K/uL [place] # (Auto) (0.0-0.8) K/uL Eos # (Auto) (0.0-0.7) K/uL Baso # (Auto) (0.0-0.2) K/uL PT 12.8 (9.8-13.1) Seconds INR 1.1 APTT 38.6 H (25.6-37.1) Seconds Fibrinogen 833 H* (200-400) mg/dl D-Dimer, Quantitative 7701 H (0-230) ng/mlDDU pCO2 (35-45) mm/Hg pO2 (80-100) mm/Hg HCO3 (21-28) mmol/L ABG pH (7.35-7.45) ABG Total CO2 (22-28) mmol/L ABG O2 Saturation (95-98) % ABG Base Excess (-2.0-3.0) mmol/L Genaro Test ABG Potassium (3.6-5.2) mmol/L A-a O2 Difference mm/Hg Glucose (65-105) mg/dL Lactate (0.7-2.1) mmol/L Vent Mode Mechanical Rate FiO2 % Tidal Volume PEEP Sodium 140 (132-148) mmol/l Potassium 3.7 (3.6-5.0) MMOL/L Chloride 102 (98-107) mmol/L Carbon Dioxide 23 (22-30) mmol/L Anion Gap 19 (10-20) BUN 64 H (7-17) mg/dl Creatinine 2.6 H (0.7-1.2) mg/dl Est GFR ( Amer) 22 Est GFR (Non-Af Amer) 18 Random Glucose 105 (65-105) mg/dL Calcium 6.5 L (8.4-10.2) mg/dL Phosphorus (2.5-4.5) mg/dl Magnesium (1.6-2.3) MG/DL Total Bilirubin (0.2-1.3) mg/dl AST (14-36) U/L ALT (9-52) U/L Alkaline Phosphatase (38-126) U/L Ammonia (9-33) umol/L Total Protein (6.3-8.2) G/DL Albumin (3.5-5.0) g/dL Globulin (2.2-3.9) gm/dL Albumin/Globulin Ratio (1.0-2.1) 25-OH Vitamin D Total (30.0-100.0) NG/ML Procalcitonin 37.90 H (0.19-0.49) NG/ML Arterial Blood Potassium (3.6-5.2) mmol/L Urine Color (YELLOW) Urine Clarity (Clear) Urine pH (5.0-8.0) Ur Specific [place] (1.003-1.030) Urine Protein (NEGATIVE) mg/dL Urine Glucose (UA) (NEGATIVE) mg/dL Urine Ketones (NEGATIVE) mg/dL Urine Blood (NEGATIVE) Urine Nitrate (NEGATIVE) Urine Bilirubin (NEGATIVE) Urine Urobilinogen (0.2-1.0) mg/dL Ur Leukocyte Esterase (Negative) Kelly/uL Urine RBC (Auto) (0-3) /hpf Urine Microscopic WBC (0-5) /hpf Ur Squamous Epith Cells (0-5) /hpf Urine Bacteria (<OCC) Urine Yeast (Budding) (NEGATIVE) /hpf Alcohol, Quantitative < 10 (0-10) mg/dl Hep Bs Antibody, Quant (>or=10) mIU/mL 08/24/18 08/23/18 Range/Units 10:15 09:25 WBC (4.8-10.8) K/uL RBC (3.80-5.20) Mil/uL Hgb (12.0-16.0) g/dL Hct (34.0-47.0) % MCV (81.0-99.0) fl MCH (27.0-31.0) pg MCHC (33.0-37.0) g/dL RDW (11.5-14.5) % Plt Count (130-400) K/uL MPV (7.2-11.7) fl Neut % (Auto) (50.0-75.0) % Lymph % (Auto) (20.0-40.0) % [place] % (Auto) (0.0-10.0) % Eos % (Auto) (0.0-4.0) % Baso % (Auto) (0.0-2.0) % Neut # (Auto) (1.8-7.0) K/uL Lymph # (Auto) (1.0-4.3) K/uL [place] # (Auto) (0.0-0.8) K/uL Eos # (Auto) (0.0-0.7) K/uL Baso # (Auto) (0.0-0.2) K/uL PT (9.8-13.1) Seconds INR APTT (25.6-37.1) Seconds Fibrinogen (200-400) mg/dl D-Dimer, Quantitative (0-230) ng/mlDDU pCO2 (35-45) mm/Hg pO2 (80-100) mm/Hg HCO3 (21-28) mmol/L ABG pH (7.35-7.45) ABG Total CO2 (22-28) mmol/L ABG O2 Saturation (95-98) % ABG Base Excess (-2.0-3.0) mmol/L Genaro Test ABG Potassium (3.6-5.2) mmol/L A-a O2 Difference mm/Hg Glucose (65-105) mg/dL Lactate (0.7-2.1) mmol/L Vent Mode Mechanical Rate FiO2 % Tidal Volume PEEP Sodium (132-148) mmol/l Potassium (3.6-5.0) MMOL/L Chloride (98-107) mmol/L Carbon Dioxide (22-30) mmol/L Anion Gap (10-20) BUN (7-17) mg/dl Creatinine (0.7-1.2) mg/dl Est GFR ( Amer) Est GFR (Non-Af Amer) Random Glucose (65-105) mg/dL Calcium (8.4-10.2) mg/dL Phosphorus (2.5-4.5) mg/dl Magnesium (1.6-2.3) MG/DL Total Bilirubin (0.2-1.3) mg/dl AST (14-36) U/L ALT (9-52) U/L Alkaline Phosphatase (38-126) U/L Ammonia (9-33) umol/L Total Protein (6.3-8.2) G/DL Albumin (3.5-5.0) g/dL Globulin (2.2-3.9) gm/dL Albumin/Globulin Ratio (1.0-2.1) 25-OH Vitamin D Total 17.7 L (30.0-100.0) NG/ML Procalcitonin (0.19-0.49) NG/ML Arterial Blood Potassium (3.6-5.2) mmol/L Urine Color (YELLOW) Urine Clarity (Clear) Urine pH (5.0-8.0) Ur Specific [place] (1.003-1.030) Urine Protein (NEGATIVE) mg/dL Urine Glucose (UA) (NEGATIVE) mg/dL Urine Ketones (NEGATIVE) mg/dL Urine Blood (NEGATIVE) Urine Nitrate (NEGATIVE) Urine Bilirubin (NEGATIVE) Urine Urobilinogen (0.2-1.0) mg/dL Ur Leukocyte Esterase (Negative) Kelly/uL Urine RBC (Auto) (0-3) /hpf Urine Microscopic WBC (0-5) /hpf Ur Squamous Epith Cells (0-5) /hpf Urine Bacteria (<OCC) Urine Yeast (Budding) (NEGATIVE) /hpf Alcohol, Quantitative (0-10) mg/dl Hep Bs Antibody, Quant <5 L (>or=10) mIU/mL Laboratory Results - last 24 hr 08/23/18 08/24/18 08/24/18 09:25 10:15 11:50 WBC RBC Hgb Hct MCV MCH MCHC RDW Plt Count MPV Neut % (Auto) Lymph % (Auto) [place] % (Auto) Eos % (Auto) Baso % (Auto) Neut # (Auto) Lymph # (Auto) [place] # (Auto) Eos # (Auto) Baso # (Auto) PT 12.8 INR 1.1 APTT 38.6 H Fibrinogen 833 H* D-Dimer, Quantitative 7701 H pCO2 pO2 HCO3 ABG pH ABG Total CO2 ABG O2 Saturation ABG Base Excess Genaro Test ABG Potassium A-a O2 Difference Glucose Lactate Vent Mode Mechanical Rate FiO2 Tidal Volume PEEP Sodium Potassium Chloride Carbon Dioxide Anion Gap BUN Creatinine Est GFR ( Amer) Est GFR (Non-Af Amer) Random Glucose Calcium Phosphorus Magnesium Total Bilirubin AST ALT Alkaline Phosphatase Ammonia Total Protein Albumin Globulin Albumin/Globulin Ratio 25-OH Vitamin D Total 17.7 L Procalcitonin Arterial Blood Potassium Urine Color Urine Clarity Urine pH Ur Specific [place] Urine Protein Urine Glucose (UA) Urine Ketones Urine Blood Urine Nitrate Urine Bilirubin Urine Urobilinogen Ur Leukocyte Esterase Urine RBC (Auto) Urine Microscopic WBC Ur Squamous Epith Cells Urine Bacteria Urine Yeast (Budding) Alcohol, Quantitative Hep Bs Antibody, Quant <5 L 08/24/18 08/24/18 08/24/18 13:45 14:45 19:15 WBC 14.4 H RBC 2.82 L Hgb 9.6 L Hct 29.1 L MCV 103.5 H MCH 34.2 H MCHC 33.0 RDW 18.8 H Plt Count 69 L MPV 10.2 Neut % (Auto) 86.2 H Lymph % (Auto) 6.2 L [place] % (Auto) 7.2 Eos % (Auto) 0.3 Baso % (Auto) 0.1 Neut # (Auto) 12.5 H Lymph # (Auto) 0.9 L [place] # (Auto) 1.0 H Eos # (Auto) 0.0 Baso # (Auto) 0.0 PT INR APTT Fibrinogen D-Dimer, Quantitative pCO2 pO2 HCO3 ABG pH ABG Total CO2 ABG O2 Saturation ABG Base Excess Genaro Test ABG Potassium A-a O2 Difference Glucose Lactate Vent Mode Mechanical Rate FiO2 Tidal Volume PEEP Sodium 140 Potassium 3.7 Chloride 102 Carbon Dioxide 23 Anion Gap 19 BUN 64 H Creatinine 2.6 H Est GFR ( Amer) 22 Est GFR (Non-Af Amer) 18 Random Glucose 105 Calcium 6.5 L Phosphorus Magnesium Total Bilirubin AST ALT Alkaline Phosphatase Ammonia Total Protein Albumin Globulin Albumin/Globulin Ratio 25-OH Vitamin D Total Procalcitonin 37.90 H Arterial Blood Potassium Urine Color Urine Clarity Urine pH Ur Specific [place] Urine Protein Urine Glucose (UA) Urine Ketones Urine Blood Urine Nitrate Urine Bilirubin Urine Urobilinogen Ur Leukocyte Esterase Urine RBC (Auto) Urine Microscopic WBC Ur Squamous Epith Cells Urine Bacteria Urine Yeast (Budding) Alcohol, Quantitative < 10 Hep Bs Antibody, Quant 08/24/18 08/24/18 08/24/18 19:15 19:15 20:25 WBC RBC Hgb Hct MCV MCH MCHC RDW Plt Count MPV Neut % (Auto) Lymph % (Auto) [place] % (Auto) Eos % (Auto) Baso % (Auto) Neut # (Auto) Lymph # (Auto) [place] # (Auto) Eos # (Auto) Baso # (Auto) PT 13.4 H INR 1.2 APTT 35.1 Fibrinogen D-Dimer, Quantitative pCO2 28 L pO2 189 H HCO3 23.0 ABG pH 7.46 H ABG Total CO2 20.8 L ABG O2 Saturation 99.5 H ABG Base Excess -2.6 L Genaro Test Yes ABG Potassium 3.6 A-a O2 Difference 204.0 Glucose 114 H Lactate 1.7 Vent Mode A/c Mechanical Rate 12 FiO2 60.0 Tidal Volume 450 PEEP 5 Sodium 136 136.0 Potassium 3.9 Chloride 99 106.0 Carbon Dioxide 23 Anion Gap 18 BUN 73 H Creatinine 2.5 H Est GFR ( Amer) 23 Est GFR (Non-Af Amer) 19 Random Glucose 114 H Calcium 6.5 L Phosphorus 4.8 H Magnesium 1.7 Total Bilirubin 1.2 AST 1930 H ALT 315 H D Alkaline Phosphatase 183 H Ammonia Total Protein 5.6 L Albumin 2.9 L Globulin 2.7 Albumin/Globulin Ratio 1.1 25-OH Vitamin D Total Procalcitonin Arterial Blood Potassium 3.6 Urine Color Urine Clarity Urine pH Ur Specific [place] Urine Protein Urine Glucose (UA) Urine Ketones Urine Blood Urine Nitrate Urine Bilirubin Urine Urobilinogen Ur Leukocyte Esterase Urine RBC (Auto) Urine Microscopic WBC Ur Squamous Epith Cells Urine Bacteria Urine Yeast (Budding) Alcohol, Quantitative Hep Bs Antibody, Quant 08/25/18 08/25/18 08/25/18 05:00 05:00 05:00 WBC 17.3 H RBC 2.66 L Hgb 9.2 L Hct 27.4 L MCV 103.0 H MCH 34.5 H MCHC 33.4 RDW 18.6 H Plt Count 62 L MPV 10.4 Neut % (Auto) 89.1 H Lymph % (Auto) 4.9 L [place] % (Auto) 5.4 Eos % (Auto) 0.4 Baso % (Auto) 0.2 Neut # (Auto) 15.5 H Lymph # (Auto) 0.8 L [place] # (Auto) 0.9 H Eos # (Auto) 0.1 Baso # (Auto) 0.0 PT INR APTT Fibrinogen D-Dimer, Quantitative pCO2 pO2 HCO3 ABG pH ABG Total CO2 ABG O2 Saturation ABG Base Excess [place] Test ABG Potassium A-a O2 Difference Glucose Lactate Vent Mode Mechanical Rate FiO2 Tidal Volume PEEP Sodium 139 Potassium 3.5 L Chloride 104 Carbon Dioxide 20 L Anion Gap 19 BUN 81 H Creatinine 3.1 H Est GFR ( Amer) 18 Est GFR (Non-Af Amer) 15 Random Glucose 84 Calcium 6.6 L Phosphorus 4.1 Magnesium 1.6 Total Bilirubin 1.0 AST 1342 H ALT 259 H Alkaline Phosphatase 175 H Ammonia < 9 L D Total Protein 5.3 L Albumin 2.6 L Globulin 2.7 Albumin/Globulin Ratio 1.0 25-OH Vitamin D Total Procalcitonin Arterial Blood Potassium Urine Color Urine Clarity Urine pH Ur Specific [place] Urine Protein Urine Glucose (UA) Urine Ketones Urine Blood Urine Nitrate Urine Bilirubin Urine Urobilinogen Ur Leukocyte Esterase Urine RBC (Auto) Urine Microscopic WBC Ur Squamous Epith Cells Urine Bacteria Urine Yeast (Budding) Alcohol, Quantitative Hep Bs Antibody, Quant 08/25/18 08/25/18 05:15 05:34 WBC RBC Hgb Hct MCV MCH MCHC RDW Plt Count MPV Neut % (Auto) Lymph % (Auto) [place] % (Auto) Eos % (Auto) Baso % (Auto) Neut # (Auto) Lymph # (Auto) [place] # (Auto) Eos # (Auto) Baso # (Auto) PT INR APTT Fibrinogen D-Dimer, Quantitative pCO2 26 L pO2 132 H HCO3 22.0 ABG pH 7.46 H ABG Total CO2 19.3 L ABG O2 Saturation 99.6 H ABG Base Excess -3.8 L [place] Test Yes ABG Potassium 3.4 L A-a O2 Difference 263.0 Glucose 92 Lactate 1.2 Vent Mode A/c Mechanical Rate 12 FiO2 60.0 Tidal Volume 450 PEEP 5 Sodium 138.0 Potassium Chloride 109.0 H Carbon Dioxide Anion Gap BUN Creatinine Est GFR ( Amer) Est GFR (Non-Af Amer) Random Glucose Calcium Phosphorus Magnesium Total Bilirubin AST ALT Alkaline Phosphatase Ammonia Total Protein Albumin Globulin Albumin/Globulin Ratio 25-OH Vitamin D Total Procalcitonin Arterial Blood Potassium 3.4 L Urine Color Cherri Urine Clarity Turbid Urine pH 5.0 Ur Specific [place] 1.017 Urine Protein 100 Urine Glucose (UA) Neg Urine Ketones Negative Urine Blood Large Urine Nitrate Negative Urine Bilirubin Negative Urine Urobilinogen 0.2-1.0 Ur Leukocyte Esterase Mod Urine RBC (Auto) 178 H Urine Microscopic WBC 738 H Ur Squamous Epith Cells 10 H Urine Bacteria Occ H Urine Yeast (Budding) Many H Alcohol, Quantitative Hep Bs Antibody, Quant Radiology Impressions: Radiology Impressions Chest X-Ray 08/24/18 06:00 IMPRESSION: No interval pathology noted. Abdomen/Pelvis CT 08/24/18 11:36 IMPRESSION: Worsening colitis particularly right harry colon. Fluid-filled left harry colon without evidence of florid colitis. Distended small bowel without focal point of obstruction. Additional benign and/or incidental findings described above. Fingerstick Blood Sugar Results: 238 Assessment/Plan - Assessment and Plan (Free Text) Assessment: Pt is a 73 y/o female with hx of Dementia, COPD, ETOH abuse, Depression/Schizophrenias, Squamous cell carcinoma of mouth/neck, TIA brought to hospital on 08/22 after being found at home by neighbor with AMS on floor covered in feces, in ED was agitated and tachypnic, intubated for airway protection, found to be in Septic shock, CT Abdomen reporting diffuse colitis, and Acute renal failure w/ metabolic acidosis s/p 2 Bicarb. Receiving urgent HD. Prognosis guarded, goals of care to be discussed with family. Palliative on board. #Neuro - Received Versed x1 prior to intubation but has remained comatose w/ GCS 3 yesterday slight improvement with GCS 5 today (+flexion to pain) - Unclear Etiology. Differential diagnosis includes but not limited to: Intra- cranial Pathology vs Metabolic encephalopathy in setting of Septic shock, Metabolic acidosis, Uremia vs Alcohol withdrawal - Utox negative, ETOH wnl - Head CT negative - Brain MRI pending, VEEG results pending - Neurology following #Cardio - Weaned of Levophed, BP stable - Currently hemodynamically stable #Pulm - Intubated on MV FIO 60% - Not candidate for weaning due to current mental status - [id number] #Renal - Acute renal failure w/ Oliguria. Likely Pre-renal 2/2 dehydration/sepsis vs direct toxic injury/Rhabdo (CPK 1k) - BUN/Crea 200/5 on admission. Slight improvement with Urgent HD x2. BUN/Crea 81/3.1 today - Nephrology following, Dr. Hernandez - Severe hypocalcemia this am 6.5. Repleted with IV Ca Gluconate. Likely sequela of renal failure - Metabolic acidosis w/ AG 37 on presentation, Received Bicarb x2, Acid- base status improved - IV fluids, NS at 125cc/hr #GI - Diffuse Colitis on CTAP on admission - Repeat CTAP w/ po contrast shows worsening colitis and distended small bowel, no obstruction - GI and Surgery following, recommendations appreciated - AST 100's, shock liver. Will provide circulatory support - C diff and stool studies sent - NG tube feedings started, continuous/trickle feeds as per Surgery #Heme/ID - Hg stable - Platelets decreased to 60; HIT workup pending. Heparin held in light of + FOBT - Heme/Onc consulted - SEPSIS criteria met via: Febrile, Leukocytosis 17 w/ Bandemia in 30s. Lactic acidosis resolved. Procalcitonin 37 - Bcx, Ucx, Stool cx pending - Vanco, Zosyn and Flagyl - Given AMS; will consider Lumbar Tap to r/u Meningitis/Encephalitis - LE mottling and scattered bruises/cyanotic digits concerning for DIC. Workup sent #PPX: GI PPx: Protonix IV daily DVT ppx: Heparin SQ (held) SCD's for now Lines: Segal, HD cathether, R. Femoral Triple lumen Next of Kin: daughter Abdon Andrews Discussed case with Dr. Nicholas Mejia PGY2 <Harsh Peterson V - Last Filed: 08/25/18 10:53> CCU Subjective - Physician Review Events Since Last Encounter (Free Text): 08/25/18 10:50 patient is seen and examined at bedside. case discussed in am ICU rounds. MRI brain report discussed with Radiologist. 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 EEG shows no ongoing seizure activity. Palliative care consult in progress. Agree with plan of care as detailed in resident's note CCU Objective - Vital Signs / Intake & Output Vital Signs (Last 4 hours): Vital Signs Temp Pulse Resp BP Pulse Ox 08/25/18 08:00 100.4 F H 86 24 127/52 L 100 Intake and Output (Last 8hrs): Intake & Output 08/24/18 08/25/18 08/25/18 22:59 06:59 14:59 Intake Total 1700 950 100 Output Total 35 Balance 1700 915 100 Weight 127 lb Intake: IV 250 750 Intake, Piggyback 650 200 100 Free Water Flush 800 Output: Urine 35 Urethral (Segal) 35 Other: # Bowel Movements 1 1 - Medications Active Medications: Active Medications Generic Name Dose Route Start Last Admin Trade Name Freq PRN Reason Stop Dose Admin Acetaminophen 650 mg 08/22/18 23:49 08/23/18 16:24 Tylenol 650 Mg Supp DE 650 mg Q6 PRN Administration Fever >100.4 F Calcium Carbonate 500 mg 08/24/18 13:00 08/25/18 08:51 Oscal PO 500 mg TID BHUPENDRA Administration Dimethicone 1 applic 08/25/18 10:45 Proshield Plus Skin Protectant TOP Q8 BHUPENDRA Folic Acid 1 mg 08/24/18 09:00 08/25/18 08:51 Folic Acid PO 1 mg DAILY BHUPENDRA Administration Heparin Sodium (Porcine) 5,000 units 08/23/18 21:00 08/24/18 21:00 Heparin SC 5,000 units Q12 BHUPENDRA Administration Protocol Piperacillin Sod/Tazobactam 100 mls @ 100 mls/hr 08/23/18 01:00 08/25/18 08:52 Sod 2.25 gm/ Sodium Chloride IVPB 100 mls/hr Q8 BHUPENDRA Administration Protocol Sodium Chloride 1,000 mls @ 125 mls/hr 08/24/18 11:30 08/25/18 03:11 Sodium Chloride 0.9% IV 08/25/18 11:29 125 mls/hr .Q8H BHUPENDRA Administration Metronidazole 100 mls @ 100 mls/hr 08/24/18 19:00 08/25/18 10:19 Flagyl 500mg/100ml Ns IVPB 100 mls/hr Q8H BHUPENDRA Administration Protocol Pantoprazole Sodium 40 mg 08/23/18 17:00 08/25/18 08:51 Protonix Inj IVP 40 mg DAILY BHUPENDRA Administration Thiamine HCl 100 mg 08/24/18 09:00 08/25/18 10:18 Vitamin B1 Inj IM 100 mg DAILY BHUPENDRA Administration - Patient Studies Lab Studies: Microbiology Studies 08/24/18 11:50 Gram Stain - Final Trachasp 08/22/18 19:50 MRSA Culture (Admit) - Final Naris MRSA NOT DETECTED 08/22/18 16:14 Blood Culture - Preliminary Blood-Venous NO GROWTH AFTER 48 HOURS 08/22/18 15:50 Blood Culture - Preliminary Blood-Venous NO GROWTH AFTER 48 HOURS 08/22/18 17:20 Urine Culture - Final Urine,Segal <10,000 CFU/ML. MULTIPLE SPECIES. PROBABLE CONTAMINATION. Lab Studies 08/25/18 08/25/18 08/25/18 Range/Units 05:34 05:15 05:00 WBC (4.8-10.8) K/uL RBC (3.80-5.20) Mil/uL Hgb (12.0-16.0) g/dL Hct (34.0-47.0) % MCV (81.0-99.0) fl MCH (27.0-31.0) pg MCHC (33.0-37.0) g/dL RDW (11.5-14.5) % Plt Count (130-400) K/uL MPV (7.2-11.7) fl Neut % (Auto) (50.0-75.0) % Lymph % (Auto) (20.0-40.0) % [place] % (Auto) (0.0-10.0) % Eos % (Auto) (0.0-4.0) % Baso % (Auto) (0.0-2.0) % Neut # (Auto) (1.8-7.0) K/uL Lymph # (Auto) (1.0-4.3) K/uL [place] # (Auto) (0.0-0.8) K/uL Eos # (Auto) (0.0-0.7) K/uL Baso # (Auto) (0.0-0.2) K/uL PT (9.8-13.1) Seconds INR APTT (25.6-37.1) Seconds Fibrinogen (200-400) mg/dl D-Dimer, Quantitative (0-230) ng/mlDDU pCO2 26 L (35-45) mm/Hg pO2 132 H (80-100) mm/Hg HCO3 22.0 (21-28) mmol/L ABG pH 7.46 H (7.35-7.45) ABG Total CO2 19.3 L (22-28) mmol/L ABG O2 Saturation 99.6 H (95-98) % ABG Base Excess -3.8 L (-2.0-3.0) mmol/L Genaro Test Yes ABG Potassium 3.4 L (3.6-5.2) mmol/L A-a O2 Difference 263.0 mm/Hg Glucose 92 (65-105) mg/dL Lactate 1.2 (0.7-2.1) mmol/L Vent Mode A/c Mechanical Rate 12 FiO2 60.0 % Tidal Volume 450 PEEP 5 Sodium 138.0 (132-148) mmol/l Potassium (3.6-5.0) MMOL/L Chloride 109.0 H (98-107) mmol/L Carbon Dioxide (22-30) mmol/L Anion Gap (10-20) BUN (7-17) mg/dl Creatinine (0.7-1.2) mg/dl Est GFR ( Amer) Est GFR (Non-Af Amer) Random Glucose (65-105) mg/dL Calcium (8.4-10.2) mg/dL Phosphorus (2.5-4.5) mg/dl Magnesium (1.6-2.3) MG/DL Total Bilirubin (0.2-1.3) mg/dl AST (14-36) U/L ALT (9-52) U/L Alkaline Phosphatase (38-126) U/L Ammonia < 9 L D (9-33) umol/L Total Protein (6.3-8.2) G/DL Albumin (3.5-5.0) g/dL Globulin (2.2-3.9) gm/dL Albumin/Globulin Ratio (1.0-2.1) 25-OH Vitamin D Total (30.0-100.0) NG/ML Procalcitonin (0.19-0.49) NG/ML Arterial Blood Potassium 3.4 L (3.6-5.2) mmol/L Urine Color Cherri (YELLOW) Urine Clarity Turbid (Clear) Urine pH 5.0 (5.0-8.0) Ur Specific [place] 1.017 (1.003-1.030) Urine Protein 100 (NEGATIVE) mg/dL Urine Glucose (UA) Neg (NEGATIVE) mg/dL Urine Ketones Negative (NEGATIVE) mg/dL Urine Blood Large (NEGATIVE) Urine Nitrate Negative (NEGATIVE) Urine Bilirubin Negative (NEGATIVE) Urine Urobilinogen 0.2-1.0 (0.2-1.0) mg/dL Ur Leukocyte Esterase Mod (Negative) Kelly/uL Urine RBC (Auto) 178 H (0-3) /hpf Urine Microscopic WBC 738 H (0-5) /hpf Ur Squamous Epith Cells 10 H (0-5) /hpf Urine Bacteria Occ H (<OCC) Urine Yeast (Budding) Many H (NEGATIVE) /hpf Alcohol, Quantitative (0-10) mg/dl 08/25/18 08/25/18 08/24/18 Range/Units 05:00 05:00 20:25 WBC 17.3 H (4.8-10.8) K/uL RBC 2.66 L (3.80-5.20) Mil/uL Hgb 9.2 L (12.0-16.0) g/dL Hct 27.4 L (34.0-47.0) % MCV 103.0 H (81.0-99.0) fl MCH 34.5 H (27.0-31.0) pg MCHC 33.4 (33.0-37.0) g/dL RDW 18.6 H (11.5-14.5) % Plt Count 62 L (130-400) K/uL MPV 10.4 (7.2-11.7) fl Neut % (Auto) 89.1 H (50.0-75.0) % Lymph % (Auto) 4.9 L (20.0-40.0) % [place] % (Auto) 5.4 (0.0-10.0) % Eos % (Auto) 0.4 (0.0-4.0) % Baso % (Auto) 0.2 (0.0-2.0) % Neut # (Auto) 15.5 H (1.8-7.0) K/uL Lymph # (Auto) 0.8 L (1.0-4.3) K/uL [place] # (Auto) 0.9 H (0.0-0.8) K/uL Eos # (Auto) 0.1 (0.0-0.7) K/uL Baso # (Auto) 0.0 (0.0-0.2) K/uL PT (9.8-13.1) Seconds INR APTT (25.6-37.1) Seconds Fibrinogen (200-400) mg/dl D-Dimer, Quantitative (0-230) ng/mlDDU pCO2 28 L (35-45) mm/Hg pO2 189 H (80-100) mm/Hg HCO3 23.0 (21-28) mmol/L ABG pH 7.46 H (7.35-7.45) ABG Total CO2 20.8 L (22-28) mmol/L ABG O2 Saturation 99.5 H (95-98) % ABG Base Excess -2.6 L (-2.0-3.0) mmol/L Genaro Test Yes ABG Potassium 3.6 (3.6-5.2) mmol/L A-a O2 Difference 204.0 mm/Hg Glucose 114 H (65-105) mg/dL Lactate 1.7 (0.7-2.1) mmol/L Vent Mode A/c Mechanical Rate 12 FiO2 60.0 % Tidal Volume 450 PEEP 5 Sodium 139 136.0 (132-148) mmol/l Potassium 3.5 L (3.6-5.0) MMOL/L Chloride 104 106.0 (98-107) mmol/L Carbon Dioxide 20 L (22-30) mmol/L Anion Gap 19 (10-20) BUN 81 H (7-17) mg/dl Creatinine 3.1 H (0.7-1.2) mg/dl Est GFR ( Amer) 18 Est GFR (Non-Af Amer) 15 Random Glucose 84 (65-105) mg/dL Calcium 6.6 L (8.4-10.2) mg/dL Phosphorus 4.1 (2.5-4.5) mg/dl Magnesium 1.6 (1.6-2.3) MG/DL Total Bilirubin 1.0 (0.2-1.3) mg/dl AST 1342 H (14-36) U/L ALT 259 H (9-52) U/L Alkaline Phosphatase 175 H (38-126) U/L Ammonia (9-33) umol/L Total Protein 5.3 L (6.3-8.2) G/DL Albumin 2.6 L (3.5-5.0) g/dL Globulin 2.7 (2.2-3.9) gm/dL Albumin/Globulin Ratio 1.0 (1.0-2.1) 25-OH Vitamin D Total (30.0-100.0) NG/ML Procalcitonin (0.19-0.49) NG/ML Arterial Blood Potassium 3.6 (3.6-5.2) mmol/L Urine Color (YELLOW) Urine Clarity (Clear) Urine pH (5.0-8.0) Ur Specific [place] (1.003-1.030) Urine Protein (NEGATIVE) mg/dL Urine Glucose (UA) (NEGATIVE) mg/dL Urine Ketones (NEGATIVE) mg/dL Urine Blood (NEGATIVE) Urine Nitrate (NEGATIVE) Urine Bilirubin (NEGATIVE) Urine Urobilinogen (0.2-1.0) mg/dL Ur Leukocyte Esterase (Negative) Kelly/uL Urine RBC (Auto) (0-3) /hpf Urine Microscopic WBC (0-5) /hpf Ur Squamous Epith Cells (0-5) /hpf Urine Bacteria (<OCC) Urine Yeast (Budding) (NEGATIVE) /hpf Alcohol, Quantitative (0-10) mg/dl 08/24/18 08/24/18 08/24/18 Range/Units 19:15 19:15 19:15 WBC 14.4 H (4.8-10.8) K/uL RBC 2.82 L (3.80-5.20) Mil/uL Hgb 9.6 L (12.0-16.0) g/dL Hct 29.1 L (34.0-47.0) % MCV 103.5 H (81.0-99.0) fl MCH 34.2 H (27.0-31.0) pg MCHC 33.0 (33.0-37.0) g/dL RDW 18.8 H (11.5-14.5) % Plt Count 69 L (130-400) K/uL MPV 10.2 (7.2-11.7) fl Neut % (Auto) 86.2 H (50.0-75.0) % Lymph % (Auto) 6.2 L (20.0-40.0) % [place] % (Auto) 7.2 (0.0-10.0) % Eos % (Auto) 0.3 (0.0-4.0) % Baso % (Auto) 0.1 (0.0-2.0) % Neut # (Auto) 12.5 H (1.8-7.0) K/uL Lymph # (Auto) 0.9 L (1.0-4.3) K/uL [place] # (Auto) 1.0 H (0.0-0.8) K/uL Eos # (Auto) 0.0 (0.0-0.7) K/uL Baso # (Auto) 0.0 (0.0-0.2) K/uL PT 13.4 H (9.8-13.1) Seconds INR 1.2 APTT 35.1 (25.6-37.1) Seconds Fibrinogen (200-400) mg/dl D-Dimer, Quantitative (0-230) ng/mlDDU pCO2 (35-45) mm/Hg pO2 (80-100) mm/Hg HCO3 (21-28) mmol/L ABG pH (7.35-7.45) ABG Total CO2 (22-28) mmol/L ABG O2 Saturation (95-98) % ABG Base Excess (-2.0-3.0) mmol/L Genaro Test ABG Potassium (3.6-5.2) mmol/L A-a O2 Difference mm/Hg Glucose (65-105) mg/dL Lactate (0.7-2.1) mmol/L Vent Mode Mechanical Rate FiO2 % Tidal Volume PEEP Sodium 136 (132-148) mmol/l Potassium 3.9 (3.6-5.0) MMOL/L Chloride 99 (98-107) mmol/L Carbon Dioxide 23 (22-30) mmol/L Anion Gap 18 (10-20) BUN 73 H (7-17) mg/dl Creatinine 2.5 H (0.7-1.2) mg/dl Est GFR ( Amer) 23 Est GFR (Non-Af Amer) 19 Random Glucose 114 H (65-105) mg/dL Calcium 6.5 L (8.4-10.2) mg/dL Phosphorus 4.8 H (2.5-4.5) mg/dl Magnesium 1.7 (1.6-2.3) MG/DL Total Bilirubin 1.2 (0.2-1.3) mg/dl AST 1930 H (14-36) U/L ALT 315 H D (9-52) U/L Alkaline Phosphatase 183 H (38-126) U/L Ammonia (9-33) umol/L Total Protein 5.6 L (6.3-8.2) G/DL Albumin 2.9 L (3.5-5.0) g/dL Globulin 2.7 (2.2-3.9) gm/dL Albumin/Globulin Ratio 1.1 (1.0-2.1) 25-OH Vitamin D Total (30.0-100.0) NG/ML Procalcitonin (0.19-0.49) NG/ML Arterial Blood Potassium (3.6-5.2) mmol/L Urine Color (YELLOW) Urine Clarity (Clear) Urine pH (5.0-8.0) Ur Specific [place] (1.003-1.030) Urine Protein (NEGATIVE) mg/dL Urine Glucose (UA) (NEGATIVE) mg/dL Urine Ketones (NEGATIVE) mg/dL Urine Blood (NEGATIVE) Urine Nitrate (NEGATIVE) Urine Bilirubin (NEGATIVE) Urine Urobilinogen (0.2-1.0) mg/dL Ur Leukocyte Esterase (Negative) Kelly/uL Urine RBC (Auto) (0-3) /hpf Urine Microscopic WBC (0-5) /hpf Ur Squamous Epith Cells (0-5) /hpf Urine Bacteria (<OCC) Urine Yeast (Budding) (NEGATIVE) /hpf Alcohol, Quantitative (0-10) mg/dl 08/24/18 08/24/18 08/24/18 Range/Units 14:45 13:45 11:50 WBC (4.8-10.8) K/uL RBC (3.80-5.20) Mil/uL Hgb (12.0-16.0) g/dL Hct (34.0-47.0) % MCV (81.0-99.0) fl MCH (27.0-31.0) pg MCHC (33.0-37.0) g/dL RDW (11.5-14.5) % Plt Count (130-400) K/uL MPV (7.2-11.7) fl Neut % (Auto) (50.0-75.0) % Lymph % (Auto) (20.0-40.0) % [place] % (Auto) (0.0-10.0) % Eos % (Auto) (0.0-4.0) % Baso % (Auto) (0.0-2.0) % Neut # (Auto) (1.8-7.0) K/uL Lymph # (Auto) (1.0-4.3) K/uL [place] # (Auto) (0.0-0.8) K/uL Eos # (Auto) (0.0-0.7) K/uL Baso # (Auto) (0.0-0.2) K/uL PT 12.8 (9.8-13.1) Seconds INR 1.1 APTT 38.6 H (25.6-37.1) Seconds Fibrinogen 833 H* (200-400) mg/dl D-Dimer, Quantitative 7701 H (0-230) ng/mlDDU pCO2 (35-45) mm/Hg pO2 (80-100) mm/Hg HCO3 (21-28) mmol/L ABG pH (7.35-7.45) ABG Total CO2 (22-28) mmol/L ABG O2 Saturation (95-98) % ABG Base Excess (-2.0-3.0) mmol/L Genaro Test ABG Potassium (3.6-5.2) mmol/L A-a O2 Difference mm/Hg Glucose (65-105) mg/dL Lactate (0.7-2.1) mmol/L Vent Mode Mechanical Rate FiO2 % Tidal Volume PEEP Sodium 140 (132-148) mmol/l Potassium 3.7 (3.6-5.0) MMOL/L Chloride 102 (98-107) mmol/L Carbon Dioxide 23 (22-30) mmol/L Anion Gap 19 (10-20) BUN 64 H (7-17) mg/dl Creatinine 2.6 H (0.7-1.2) mg/dl Est GFR ( Amer) 22 Est GFR (Non-Af Amer) 18 Random Glucose 105 (65-105) mg/dL Calcium 6.5 L (8.4-10.2) mg/dL Phosphorus (2.5-4.5) mg/dl Magnesium (1.6-2.3) MG/DL Total Bilirubin (0.2-1.3) mg/dl AST (14-36) U/L ALT (9-52) U/L Alkaline Phosphatase (38-126) U/L Ammonia (9-33) umol/L Total Protein (6.3-8.2) G/DL Albumin (3.5-5.0) g/dL Globulin (2.2-3.9) gm/dL Albumin/Globulin Ratio (1.0-2.1) 25-OH Vitamin D Total (30.0-100.0) NG/ML Procalcitonin 37.90 H (0.19-0.49) NG/ML Arterial Blood Potassium (3.6-5.2) mmol/L Urine Color (YELLOW) Urine Clarity (Clear) Urine pH (5.0-8.0) Ur Specific [place] (1.003-1.030) Urine Protein (NEGATIVE) mg/dL Urine Glucose (UA) (NEGATIVE) mg/dL Urine Ketones (NEGATIVE) mg/dL Urine Blood (NEGATIVE) Urine Nitrate (NEGATIVE) Urine Bilirubin (NEGATIVE) Urine Urobilinogen (0.2-1.0) mg/dL Ur Leukocyte Esterase (Negative) Kelly/uL Urine RBC (Auto) (0-3) /hpf Urine Microscopic WBC (0-5) /hpf Ur Squamous Epith Cells (0-5) /hpf Urine Bacteria (<OCC) Urine Yeast (Budding) (NEGATIVE) /hpf Alcohol, Quantitative < 10 (0-10) mg/dl 08/24/18 Range/Units 10:15 WBC (4.8-10.8) K/uL RBC (3.80-5.20) Mil/uL Hgb (12.0-16.0) g/dL Hct (34.0-47.0) % MCV (81.0-99.0) fl MCH (27.0-31.0) pg MCHC (33.0-37.0) g/dL RDW (11.5-14.5) % Plt Count (130-400) K/uL MPV (7.2-11.7) fl Neut % (Auto) (50.0-75.0) % Lymph % (Auto) (20.0-40.0) % [place] % (Auto) (0.0-10.0) % Eos % (Auto) (0.0-4.0) % Baso % (Auto) (0.0-2.0) % Neut # (Auto) (1.8-7.0) K/uL Lymph # (Auto) (1.0-4.3) K/uL [place] # (Auto) (0.0-0.8) K/uL Eos # (Auto) (0.0-0.7) K/uL Baso # (Auto) (0.0-0.2) K/uL PT (9.8-13.1) Seconds INR APTT (25.6-37.1) Seconds Fibrinogen (200-400) mg/dl D-Dimer, Quantitative (0-230) ng/mlDDU pCO2 (35-45) mm/Hg pO2 (80-100) mm/Hg HCO3 (21-28) mmol/L ABG pH (7.35-7.45) ABG Total CO2 (22-28) mmol/L ABG O2 Saturation (95-98) % ABG Base Excess (-2.0-3.0) mmol/L Genaro Test ABG Potassium (3.6-5.2) mmol/L A-a O2 Difference mm/Hg Glucose (65-105) mg/dL Lactate (0.7-2.1) mmol/L Vent Mode Mechanical Rate FiO2 % Tidal Volume PEEP Sodium (132-148) mmol/l Potassium (3.6-5.0) MMOL/L Chloride (98-107) mmol/L Carbon Dioxide (22-30) mmol/L Anion Gap (10-20) BUN (7-17) mg/dl Creatinine (0.7-1.2) mg/dl Est GFR ( Amer) Est GFR (Non-Af Amer) Random Glucose (65-105) mg/dL Calcium (8.4-10.2) mg/dL Phosphorus (2.5-4.5) mg/dl Magnesium (1.6-2.3) MG/DL Total Bilirubin (0.2-1.3) mg/dl AST (14-36) U/L ALT (9-52) U/L Alkaline Phosphatase (38-126) U/L Ammonia (9-33) umol/L Total Protein (6.3-8.2) G/DL Albumin (3.5-5.0) g/dL Globulin (2.2-3.9) gm/dL Albumin/Globulin Ratio (1.0-2.1) 25-OH Vitamin D Total 17.7 L (30.0-100.0) NG/ML Procalcitonin (0.19-0.49) NG/ML Arterial Blood Potassium (3.6-5.2) mmol/L Urine Color (YELLOW) Urine Clarity (Clear) Urine pH (5.0-8.0) Ur Specific [place] (1.003-1.030) Urine Protein (NEGATIVE) mg/dL Urine Glucose (UA) (NEGATIVE) mg/dL Urine Ketones (NEGATIVE) mg/dL Urine Blood (NEGATIVE) Urine Nitrate (NEGATIVE) Urine Bilirubin (NEGATIVE) Urine Urobilinogen (0.2-1.0) mg/dL Ur Leukocyte Esterase (Negative) Kelly/uL Urine RBC (Auto) (0-3) /hpf Urine Microscopic WBC (0-5) /hpf Ur Squamous Epith Cells (0-5) /hpf Urine Bacteria (<OCC) Urine Yeast (Budding) (NEGATIVE) /hpf Alcohol, Quantitative (0-10) mg/dl Laboratory Results - last 24 hr 08/24/18 08/24/18 08/24/18 10:15 11:50 13:45 WBC RBC Hgb Hct MCV MCH MCHC RDW Plt Count MPV Neut % (Auto) Lymph % (Auto) [place] % (Auto) Eos % (Auto) Baso % (Auto) Neut # (Auto) Lymph # (Auto) [place] # (Auto) Eos # (Auto) Baso # (Auto) PT 12.8 INR 1.1 APTT 38.6 H Fibrinogen 833 H* D-Dimer, Quantitative 7701 H pCO2 pO2 HCO3 ABG pH ABG Total CO2 ABG O2 Saturation ABG Base Excess Genaro Test ABG Potassium A-a O2 Difference Glucose Lactate Vent Mode Mechanical Rate FiO2 Tidal Volume PEEP Sodium 140 Potassium 3.7 Chloride 102 Carbon Dioxide 23 Anion Gap 19 BUN 64 H Creatinine 2.6 H Est GFR ( Amer) 22 Est GFR (Non-Af Amer) 18 Random Glucose 105 Calcium 6.5 L Phosphorus Magnesium Total Bilirubin AST ALT Alkaline Phosphatase Ammonia Total Protein Albumin Globulin Albumin/Globulin Ratio 25-OH Vitamin D Total 17.7 L Procalcitonin Arterial Blood Potassium Urine Color Urine Clarity Urine pH Ur Specific [place] Urine Protein Urine Glucose (UA) Urine Ketones Urine Blood Urine Nitrate Urine Bilirubin Urine Urobilinogen Ur Leukocyte Esterase Urine RBC (Auto) Urine Microscopic WBC Ur Squamous Epith Cells Urine Bacteria Urine Yeast (Budding) Alcohol, Quantitative < 10 08/24/18 08/24/18 08/24/18 14:45 19:15 19:15 WBC 14.4 H RBC 2.82 L Hgb 9.6 L Hct 29.1 L MCV 103.5 H MCH 34.2 H MCHC 33.0 RDW 18.8 H Plt Count 69 L MPV 10.2 Neut % (Auto) 86.2 H Lymph % (Auto) 6.2 L [place] % (Auto) 7.2 Eos % (Auto) 0.3 Baso % (Auto) 0.1 Neut # (Auto) 12.5 H Lymph # (Auto) 0.9 L [place] # (Auto) 1.0 H Eos # (Auto) 0.0 Baso # (Auto) 0.0 PT 13.4 H INR 1.2 APTT 35.1 Fibrinogen D-Dimer, Quantitative pCO2 pO2 HCO3 ABG pH ABG Total CO2 ABG O2 Saturation ABG Base Excess Genaro Test ABG Potassium A-a O2 Difference Glucose Lactate Vent Mode Mechanical Rate FiO2 Tidal Volume PEEP Sodium Potassium Chloride Carbon Dioxide Anion Gap BUN Creatinine Est GFR ( Amer) Est GFR (Non-Af Amer) Random Glucose Calcium Phosphorus Magnesium Total Bilirubin AST ALT Alkaline Phosphatase Ammonia Total Protein Albumin Globulin Albumin/Globulin Ratio 25-OH Vitamin D Total Procalcitonin 37.90 H Arterial Blood Potassium Urine Color Urine Clarity Urine pH Ur Specific [place] Urine Protein Urine Glucose (UA) Urine Ketones Urine Blood Urine Nitrate Urine Bilirubin Urine Urobilinogen Ur Leukocyte Esterase Urine RBC (Auto) Urine Microscopic WBC Ur Squamous Epith Cells Urine Bacteria Urine Yeast (Budding) Alcohol, Quantitative 08/24/18 08/24/18 08/25/18 19:15 20:25 05:00 WBC 17.3 H RBC 2.66 L Hgb 9.2 L Hct 27.4 L MCV 103.0 H MCH 34.5 H MCHC 33.4 RDW 18.6 H Plt Count 62 L MPV 10.4 Neut % (Auto) 89.1 H Lymph % (Auto) 4.9 L [place] % (Auto) 5.4 Eos % (Auto) 0.4 Baso % (Auto) 0.2 Neut # (Auto) 15.5 H Lymph # (Auto) 0.8 L [place] # (Auto) 0.9 H Eos # (Auto) 0.1 Baso # (Auto) 0.0 PT INR APTT Fibrinogen D-Dimer, Quantitative pCO2 28 L pO2 189 H HCO3 23.0 ABG pH 7.46 H ABG Total CO2 20.8 L ABG O2 Saturation 99.5 H ABG Base Excess -2.6 L [place] Test Yes ABG Potassium 3.6 A-a O2 Difference 204.0 Glucose 114 H Lactate 1.7 Vent Mode A/c Mechanical Rate 12 FiO2 60.0 Tidal Volume 450 PEEP 5 Sodium 136 136.0 Potassium 3.9 Chloride 99 106.0 Carbon Dioxide 23 Anion Gap 18 BUN 73 H Creatinine 2.5 H Est GFR ( Amer) 23 Est GFR (Non-Af Amer) 19 Random Glucose 114 H Calcium 6.5 L Phosphorus 4.8 H Magnesium 1.7 Total Bilirubin 1.2 AST 1930 H ALT 315 H D Alkaline Phosphatase 183 H Ammonia Total Protein 5.6 L Albumin 2.9 L Globulin 2.7 Albumin/Globulin Ratio 1.1 25-OH Vitamin D Total Procalcitonin Arterial Blood Potassium 3.6 Urine Color Urine Clarity Urine pH Ur Specific [place] Urine Protein Urine Glucose (UA) Urine Ketones Urine Blood Urine Nitrate Urine Bilirubin Urine Urobilinogen Ur Leukocyte Esterase Urine RBC (Auto) Urine Microscopic WBC Ur Squamous Epith Cells Urine Bacteria Urine Yeast (Budding) Alcohol, Quantitative 08/25/18 08/25/18 08/25/18 05:00 05:00 05:15 WBC RBC Hgb Hct MCV MCH MCHC RDW Plt Count MPV Neut % (Auto) Lymph % (Auto) [place] % (Auto) Eos % (Auto) Baso % (Auto) Neut # (Auto) Lymph # (Auto) [place] # (Auto) Eos # (Auto) Baso # (Auto) PT INR APTT Fibrinogen D-Dimer, Quantitative pCO2 pO2 HCO3 ABG pH ABG Total CO2 ABG O2 Saturation ABG Base Excess [place] Test ABG Potassium A-a O2 Difference Glucose Lactate Vent Mode Mechanical Rate FiO2 Tidal Volume PEEP Sodium 139 Potassium 3.5 L Chloride 104 Carbon Dioxide 20 L Anion Gap 19 BUN 81 H Creatinine 3.1 H Est GFR ( Amer) 18 Est GFR (Non-Af Amer) 15 Random Glucose 84 Calcium 6.6 L Phosphorus 4.1 Magnesium 1.6 Total Bilirubin 1.0 AST 1342 H ALT 259 H Alkaline Phosphatase 175 H Ammonia < 9 L D Total Protein 5.3 L Albumin 2.6 L Globulin 2.7 Albumin/Globulin Ratio 1.0 25-OH Vitamin D Total Procalcitonin Arterial Blood Potassium Urine Color Cherri Urine Clarity Turbid Urine pH 5.0 Ur Specific [place] 1.017 Urine Protein 100 Urine Glucose (UA) Neg Urine Ketones Negative Urine Blood Large Urine Nitrate Negative Urine Bilirubin Negative Urine Urobilinogen 0.2-1.0 Ur Leukocyte Esterase Mod Urine RBC (Auto) 178 H Urine Microscopic WBC 738 H Ur Squamous Epith Cells 10 H Urine Bacteria Occ H Urine Yeast (Budding) Many H Alcohol, Quantitative 08/25/18 05:34 WBC RBC Hgb Hct MCV MCH MCHC RDW Plt Count MPV Neut % (Auto) Lymph % (Auto) [place] % (Auto) Eos % (Auto) Baso % (Auto) Neut # (Auto) Lymph # (Auto) [place] # (Auto) Eos # (Auto) Baso # (Auto) PT INR APTT Fibrinogen D-Dimer, Quantitative pCO2 26 L pO2 132 H HCO3 22.0 ABG pH 7.46 H ABG Total CO2 19.3 L ABG O2 Saturation 99.6 H ABG Base Excess -3.8 L [place] Test Yes ABG Potassium 3.4 L A-a O2 Difference 263.0 Glucose 92 Lactate 1.2 Vent Mode A/c Mechanical Rate 12 FiO2 60.0 Tidal Volume 450 PEEP 5 Sodium 138.0 Potassium Chloride 109.0 H Carbon Dioxide Anion Gap BUN Creatinine Est GFR ( Amer) Est GFR (Non-Af Amer) Random Glucose Calcium Phosphorus Magnesium Total Bilirubin AST ALT Alkaline Phosphatase Ammonia Total Protein Albumin Globulin Albumin/Globulin Ratio 25-OH Vitamin D Total Procalcitonin Arterial Blood Potassium 3.4 L Urine Color Urine Clarity Urine pH Ur Specific [place] Urine Protein Urine Glucose (UA) Urine Ketones Urine Blood Urine Nitrate Urine Bilirubin Urine Urobilinogen Ur Leukocyte Esterase Urine RBC (Auto) Urine Microscopic WBC Ur Squamous Epith Cells Urine Bacteria Urine Yeast (Budding) Alcohol, Quantitative Radiology Impressions: Radiology Impressions Brain MRI 08/23/18 15:57 IMPRESSION: 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 Cortical edema and swelling can also be seen on the FLAIR and T2 images. There is no hemorrhage. This pattern of infarction in multiple vascular distributions is most consistent with a hypotensive event. Abdomen/Pelvis CT 08/24/18 11:36
--- NOTE | 2018-08-25 10:25 | MRI ---
Date of service: 08/24/2018 PROCEDURE: MRI BRAIN WITHOUT CONTRAST HISTORY: Altered mental status COMPARISON: None available. TECHNIQUE: Multiplanar, multisequence MR images of the brain were obtained without intravenous contrast enhancement. FINDINGS: HEMORRHAGE: None DWI: 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 Cortical edema and swelling can also be seen on the FLAIR and T2 images. There is no hemorrhage. This pattern of infarction in multiple vascular distributions is most consistent with a hypotensive event. I was called to read this study at 10 a.m.. There was no [facility] report on this patient at the time of the study. I called the ICU and spoke to Dr. Harsh Dang at 10:20 a.m. 08/25/2018 BRAIN PARENCHYMA: No mass effect or edema. No atrophy or chronic microvascular ischemic changes. VENTRICLES: Unremarkable. No hydrocephalus. CRANIUM: Unremarkable. ORBITS: Grossly unremarkable. PARANASAL SINUSES/MASTOIDS: Clear VASCULAR SYSTEM: Skull base flow voids intact. OTHER FINDINGS: None IMPRESSION: 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 Cortical edema and swelling can also be seen on the FLAIR and T2 images. There is no hemorrhage. This pattern of infarction in multiple vascular distributions is most consistent with a hypotensive event.
[2018-08-25] MEDS: Proshield Plus GEL TOP SCH ×2 (10:50→16:10)
--- NOTE | 2018-08-25 10:55 | PCM.PPROG ---
History of Present Illness - History of Present Illness History of Present Illness: Patient is a 83 year old female who came to the ER on 08/22/18 with EMS. [employer] found her in her apartment covered in feces. In the ER she also complained of SOB and abdominal pain. She was not able to provide a good history. She was admitted to ICU for Acute renal failure, respiratory failure , alcohol withdrawal, AMS. She is currently intubated on vent in ICU. PMH: Anxiety, arthritis, bipolar disorder, colonic polyps, COPD, Dementia, Depression, Fractures, HTN, Hypercholesterolemia, Squamous cell carcinoma of the mouth/neck, osteoporosis, PTSD, Schizophrenia Soc hx: Former smoker, ETOH user, Lives alone Fam hx: Unknown 08/22 CXR no interval pathology noted 08/[address]: No intracranial mass, hemmorhage, or evidence of acute infarct 08/23 MRI brain: Bilateral cerebral hemispheric Infarcts Review of Systems - Review of Systems Systems not reviewed;Unavailable: Acuity of Condition, Intubated Review of Systems: Intubated on mechanical ventilation, unresponsive Physical Exam - Constitutional Appears: Cachectic, Chronically Ill - Head Exam Head Exam: ATRAUMATIC, NORMAL INSPECTION, NORMOCEPHALIC - Neck Exam Neck exam: Positive for: Normal Inspection - Respiratory Exam Additional comments: intubated with mechanical ventilation - Cardiovascular Exam Cardiovascular Exam: REGULAR RHYTHM - Neurological Exam Additional comments: patient not alert, unresponsive - Skin Skin Exam: Dry, Pallor Additional comments: BLE mottling, multiple areas of ecchymosis bilateral upper extremities Palliative Care Assessment - Modified MRC Dyspnea Scale Modified MRC Dyspnea Scale: Too breathless to leave the house,or breathless dressing or undressing Grade: 5 - Rodriguez Scale Sensory Perception: Completely Limited Moisture: Constantly Moist Activity: Bedfast Mobility: Completely Immobile Nutrition: Very Poor Friction & Shear: Problem Total Score - Skin Risk Assessment: 6 Palliative Care - Goals Goal(s) of care: Goals of care discussed with patient's 2 daughters Ruth and Lashawn. Patient's brother was also present during family meeting. The severity of the patient's condition and poor prognosis was explained. All family members verbalized their understanding. At this moment, They would like to continue aggressive measures and have a day or 2 to think. They state that the patient had previously expressed her wishes with them in the past and said she did not want to be kept alive on life support. Goals of Care discussions will continue with family End of life care discussed: Yes End of life discussion: End of life discussions held with patient's daughter Ruht and Lashawn, and patient's brother. Assessment & Plan - Assessment and Plan (Free Text) Assessment: Impression Acute Respiratory Failure Acute Renal Failure Suggestion Will continue Goals of Care and End of life discussions with family Palliative Care will remain on board as needed Time spent with patient 60 minutes
[2018-08-25] MEDS ORDERED: Ergocalciferol 50,000 Intl Units Cap PO SCH (11:00)
--- NOTE | 2018-08-25 11:48 | CP.PCM.PN ---
Subjective - Date & Time of Evaluation Date of Evaluation: 08/25/18 Time of Evaluation: 11:46 - Subjective Subjective: Neuro Follow-Up Note: Mrs. Andrews was evaluated this afternoon in the ICU. No family present at bedside during exam. Pt remains intubated, on mech vent, no sedation. She does not follow commands. She does not respond to painful stimuli, though today when her legs or feet are touched she moves them. Currently still connected to the VEEG monitor. Chart reviewed, discussed and seen with primary RN. ROS unobtainable from the pt 2/2 her current status. Objective - Vital Signs/Intake and Output Vital Signs (last 24 hours): Temp Pulse Resp BP Pulse Ox 100.4 F H 80 27 H 134/64 100 08/25/18 08:00 08/25/18 10:00 08/25/18 10:00 08/25/18 10:00 08/25/18 10:00 Intake and Output: 08/25/18 08/25/18 06:59 18:59 Intake Total 1400 200 Output Total 35 Balance 1365 200 - Medications Medications: Current Medications Acetaminophen (Tylenol 650 Mg Supp) 650 mg ND Q6 PRN PRN Reason: Fever >100.4 F Last Admin: 08/23/18 16:24 Dose: 650 mg Calcium Carbonate (Oscal) 500 mg PO TID [facility] Last Admin: 08/25/18 08:51 Dose: 500 mg Dimethicone (Proshield Plus Skin Protectant) 1 applic TOP Q8 [facility] Ergocalciferol (Drisdol 50,000 Intl Units Cap) 1 cap PO Q7D [facility] Folic Acid (Folic Acid) 1 mg PO DAILY [facility] Last Admin: 08/25/18 08:51 Dose: 1 mg Heparin Sodium (Porcine) (Heparin) 5,000 units SC Q12 [facility]; Protocol Last Admin: 08/24/18 21:00 Dose: 5,000 units Piperacillin Sod/Tazobactam (Sod 2.25 gm/ Sodium Chloride) 100 mls @ 100 mls/hr IVPB Q8 [facility]; Protocol Last Admin: 08/25/18 08:52 Dose: 100 mls/hr Metronidazole (Flagyl 500mg/100ml Ns) 100 mls @ 100 mls/hr IVPB Q8H [facility]; Protocol Last Admin: 08/25/18 10:19 Dose: 100 mls/hr Calcium Gluconate 1,000 mg/ (Sodium Chloride) 110 mls @ 100 mls/hr IVPB ONCE ONE Stop: 08/25/18 11:53 Pantoprazole Sodium (Protonix Inj) 40 mg IVP DAILY [facility] Last Admin: 08/25/18 08:51 Dose: 40 mg Thiamine HCl (Vitamin B1 Inj) 100 mg IM DAILY [facility] Last Admin: 08/25/18 10:18 Dose: 100 mg Vitamin B Complex/Vit C/Folic Acid (Nephro-Jannet) 1 tab PO DAILY [facility] - Labs Labs: 08/25/18 05:00 08/25/18 05:00 PT 13.4 Seconds (9.8-13.1) H 08/24/18 19:15 INR 1.2 08/24/18 19:15 APTT 35.1 Seconds (25.6-37.1) 08/24/18 19:15 - Constitutional Appears: Other (intubated, on mech vent, off sedation; does not follow commands; moves legs when touched, no other movements appreciated) - Head Exam Additional comments: covered with dressing for VEEG - Eye Exam Eye Exam: Nystagmus, PERRL Pupil Exam: PERRL Additional comments: Pupils are both reactive, approx 2 mm b/l. + nystagmus and rolling eye movement b/l No corneals; no dolls eyes - ENT Exam ENT Exam: Mucous Membranes Moist Additional comments: intubated - Neck Exam Neck Exam: Normal Inspection - Respiratory Exam Respiratory Exam: absent: NORMAL BREATHING PATTERN Additional comments: intubated, on mech vent - Cardiovascular Exam Cardiovascular Exam: REGULAR RHYTHM. absent: Tachycardia - GI/Abdominal Exam GI & Abdominal Exam: Soft. absent: Distended, Tenderness - Exam Additional comments: wynne in place - Extremities Exam Extremities Exam: absent: Full ROM, Pedal Edema Additional comments: No response or extremity movement to painful stimuli, though pt does move her legs when legs/feet are touched. BUE flaccid - Neurological Exam Neurological Exam: Altered Additional comments: Pt is intubated, on mech vent, off sedation; does not follow commands Pupils are both reactive, approx 2 mm b/l. + nystagmus and rolling eye movement b/l No corneals; no dolls eyes + Gag reflex No purposeful response or extremity movement to painful stimuli, though pt does move her legs when legs/feet are touched. BUE flaccid Reflexes are brisk b/l. + Babinski b/l No tremors or myoclonic movements. - Psychiatric Exam Additional comments: intubated, on mech vent, does not follow commands - Skin Additional comments: mottled BLE Assessment and Plan (1) Anoxic encephalopathy Assessment & Plan: Imaging reviewed: -EEG (08/25/18): Impression: This was an abnormal video EEG, monitoring study, due to the presence of: 1-Severe background slowing/attenuation . 2-Left hemispheric slowing and rare sharps. No seizures not in status epilepticus. INTERPRETATION: The above mentioned findings are in keeping with a severe non specific diffuse disturbance of cortical activity. This is in keeping with a diffuse ibanez matter dysfunction. The findings do not suggest a specific etiology. -Brain MRI (08/24/18): 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 Cortical edema and swelling can also be seen on the FLAIR and T2 images. There is no hemorrhage. This pattern of infarction in multiple vascular distributions is most consistent with a hypotensive event. -CT Head (08/22/18): No intracranial mass, hemorrhage or evidence of acute infarct. Mild age-appropriate involutional change. No change from prior examination. -Palliative care on board. -Heme/onc consulted for thrombocytopenia. -ASA and Plavix on hold for now 2/2 Stool OB positive and pt has thrombocytop enia. -Statins on hold 2/2 elevated LFTs. -Start Keppra 500 mg IV Q12 for abnormalities seen on the EEG as well as the multiple b/l infarcts seen on the MRI. Magda Hedrick, DNP, [employer] d/w Dr. Medley Status: Acute
[2018-08-25] MEDS: Multivitamin Vitamin B Complex (Nephro-Vite) Tab PO SCH (12:03)
--- NOTE | 2018-08-25 12:10 | CP.PCM.CON ---
History of Present Illness - History of Present Illness History of Present Illness: 73 year old female with a history of alcohol abuse, HTN, HL, COPD, oropharyngeal cancer s/p surgery 2002, ? recurrence 2009, schizophrenia, found down at home with anemia, thrombocytopenia, coagulopathy. The patient is currently vented and I am unable to obtain a history from the patient. She is currently being treated as a code sepsis, with renal failure, and evidence of CVA. There is no overt evidence of significant bleeding or bruising. She was admitted with a mild thrombocytopenia of 120,000 which has no nadired at 60,000. Past medical, surgical, family, social history cannot be obtained from the patient. Allergies: Per documentation NKA Review of systems cannot be obtained. Past Patient History - Infectious Disease Hx of Infectious Diseases: None - Tetanus Immunizations Tetanus Immunization: Unknown - Past Medical History & Family History Past Medical History?: Yes - Past Social History Smoking Status: Former Smoker Alcohol: Other (Hx ETOH abuse) Home Situation {Lives}: Alone - CARDIAC Hx Cardiac Disorders: Yes Hx Congestive Heart Failure: No Hx Hypercholesterolemia: Yes Hx Hypertension: Yes - PULMONARY Hx Respiratory Disorders: Yes Hx Bronchitis: Yes Hx Chronic Obstructive Pulmonary Disease (COPD): Yes Hx Pneumonia: Yes - NEUROLOGICAL Hx Neurological Disorder: Yes Hx Dementia: Yes Hx Seizures: No Hx Transient Ischemic Attacks (TIA): No - HEENT Hx HEENT Problems: Yes Hx Cataracts: Yes - RENAL Hx Chronic Kidney Disease: No - ENDOCRINE/METABOLIC Hx Endocrine Disorders: No Hx Hypothyroidism: No - HEMATOLOGICAL/ONCOLOGICAL Hx Blood Disorders: No Hx Human Immunodeficiency Virus (HIV): No - INTEGUMENTARY Hx Dermatological Problems: Yes Hx Squamous Cell: Yes (No Chemo treatment; surgery 10 yrs ago at [place]) - MUSCULOSKELETAL/RHEUMATOLOGICAL Hx Musculoskeletal Disorders: Yes Hx Arthritis: Yes Hx Falls: Yes Hx Fractures: Yes (right wrist fracture, rib fx) Hx Osteoporosis: Yes Hx Rheumatoid Arthritis: No - GASTROINTESTINAL Hx Gastrointestinal Disorders: No - GENITOURINARY/GYNECOLOGICAL Hx Genitourinary Disorders: No Hx Sexually Transmitted Disorders: No - PSYCHIATRIC Hx Psychophysiologic Disorder: Yes Hx Anxiety: Yes Hx Bipolar Disorder: Yes Hx Depression: Yes Hx Post Traumatic Stress Disorder: Yes Hx Schizophrenia: Yes Hx Substance Use: No - SURGICAL HISTORY Hx Surgeries: Yes Hx Hysterectomy: Yes (Partial) Other/Comment: mouth and neck CA SX - ANESTHESIA Hx Anesthesia: Yes Hx Anesthesia Reactions: No Hx Malignant Hyperthermia: No Meds Allergies/Adverse Reactions: Allergies Allergy/AdvReac Type Severity Reaction Status Date / Time No Known Allergies Allergy Verified 08/22/18 14:40 - Medications Medications: Current Medications Acetaminophen (Tylenol 650 Mg Supp) 650 mg MS Q6 PRN PRN Reason: Fever >100.4 F Last Admin: 08/23/18 16:24 Dose: 650 mg Calcium Carbonate (Oscal) 500 mg PO TID [facility] Last Admin: 08/25/18 12:04 Dose: 500 mg Dimethicone (Proshield Plus Skin Protectant) 1 applic TOP Q8 [facility] Last Admin: 08/25/18 10:50 Dose: 1 applic Ergocalciferol (Drisdol 50,000 Intl Units Cap) 1 cap PO Q7D [facility] Last Admin: 08/25/18 12:04 Dose: 1 cap Folic Acid (Folic Acid) 1 mg PO DAILY [facility] Last Admin: 08/25/18 08:51 Dose: 1 mg Heparin Sodium (Porcine) (Heparin) 5,000 units SC Q12 [facility]; Protocol Last Admin: 08/24/18 21:00 Dose: 5,000 units Piperacillin Sod/Tazobactam (Sod 2.25 gm/ Sodium Chloride) 100 mls @ 100 mls/hr IVPB Q8 [facility]; Protocol Last Admin: 08/25/18 08:52 Dose: 100 mls/hr Metronidazole (Flagyl 500mg/100ml Ns) 100 mls @ 100 mls/hr IVPB Q8H [facility]; Pipo col Last Admin: 08/25/18 10:19 Dose: 100 mls/hr Pantoprazole Sodium (Protonix Inj) 40 mg IVP DAILY [facility] Last Admin: 08/25/18 08:51 Dose: 40 mg Thiamine HCl (Vitamin B1 Inj) 100 mg IM DAILY [facility] Last Admin: 08/25/18 10:18 Dose: 100 mg Vitamin B Complex/Vit C/Folic Acid (Nephro-Jannet) 1 tab PO DAILY [facility] Last Admin: 08/25/18 12:03 Dose: 1 tab Physical Exam - Head Exam Head Exam: ATRAUMATIC - Eye Exam Eye Exam: Normal appearance - ENT Exam ENT Exam: Mucous Membranes Dry - Respiratory Exam Respiratory Exam: NORMAL BREATHING PATTERN - Cardiovascular Exam Cardiovascular Exam: +S1, +S2 - GI/Abdominal Exam GI & Abdominal Exam: Normal Bowel Sounds - Extremities Exam Extremities exam: Positive for: pedal edema - Psychiatric Exam Psychiatric exam: Flat Affect Results - Vital Signs Recent Vital Signs: Last Vital Signs Temp 100.4 F H 08/25/18 08:00 Pulse 80 08/25/18 10:00 Resp 27 H 08/25/18 10:00 BP 134/64 08/25/18 10:00 Pulse Ox 100 08/25/18 10:00 - Labs Result Diagrams: 08/26/18 05:15 08/26/18 04:00 Labs: Laboratory Results - last 24 hr 08/24/18 08/24/18 08/24/18 10:15 11:50 13:45 WBC RBC Hgb Hct MCV MCH MCHC RDW Plt Count MPV Neut % (Auto) Lymph % (Auto) Mitchell % (Auto) Eos % (Auto) Baso % (Auto) Neut # (Auto) Lymph # (Auto) Mitchell # (Auto) Eos # (Auto) Baso # (Auto) PT 12.8 INR 1.1 APTT 38.6 H Fibrinogen 833 H* D-Dimer, Quantitative 7701 H pCO2 pO2 HCO3 ABG pH ABG Total CO2 ABG O2 Saturation ABG Base Excess Genaro Test ABG Potassium A-a O2 Difference Glucose Lactate Vent Mode Mechanical Rate FiO2 Tidal Volume PEEP Sodium 140 Potassium 3.7 Chloride 102 Carbon Dioxide 23 Anion Gap 19 BUN 64 H Creatinine 2.6 H Est GFR ( Amer) 22 Est GFR (Non-Af Amer) 18 Random Glucose 105 Calcium 6.5 L Phosphorus Magnesium Total Bilirubin AST ALT Alkaline Phosphatase Ammonia Total Creatine Kinase Total Protein Albumin Globulin Albumin/Globulin Ratio 25-OH Vitamin D Total 17.7 L Procalcitonin Arterial Blood Potassium Urine Color Urine Clarity Urine pH Ur Specific [place] Urine Protein Urine Glucose (UA) Urine Ketones Urine Blood Urine Nitrate Urine Bilirubin Urine Urobilinogen Ur Leukocyte Esterase Urine RBC (Auto) Urine Microscopic WBC Ur Squamous Epith Cells Urine Bacteria Urine Yeast (Budding) Alcohol, Quantitative < 10 08/24/18 08/24/18 08/24/18 14:45 19:15 19:15 WBC 14.4 H RBC 2.82 L Hgb 9.6 L Hct 29.1 L MCV 103.5 H MCH 34.2 H MCHC 33.0 RDW 18.8 H Plt Count 69 L MPV 10.2 Neut % (Auto) 86.2 H Lymph % (Auto) 6.2 L Mitchell % (Auto) 7.2 Eos % (Auto) 0.3 Baso % (Auto) 0.1 Neut # (Auto) 12.5 H Lymph # (Auto) 0.9 L Mitchell # (Auto) 1.0 H Eos # (Auto) 0.0 Baso # (Auto) 0.0 PT 13.4 H INR 1.2 APTT 35.1 Fibrinogen D-Dimer, Quantitative pCO2 pO2 HCO3 ABG pH ABG Total CO2 ABG O2 Saturation ABG Base Excess Genaro Test ABG Potassium A-a O2 Difference Glucose Lactate Vent Mode Mechanical Rate FiO2 Tidal Volume PEEP Sodium Potassium Chloride Carbon Dioxide Anion Gap BUN Creatinine Est GFR ( Amer) Est GFR (Non-Af Amer) Random Glucose Calcium Phosphorus Magnesium Total Bilirubin AST ALT Alkaline Phosphatase Ammonia Total Creatine Kinase Total Protein Albumin Globulin Albumin/Globulin Ratio 25-OH Vitamin D Total Procalcitonin 37.90 H Arterial Blood Potassium Urine Color Urine Clarity Urine pH Ur Specific [place] Urine Protein Urine Glucose (UA) Urine Ketones Urine Blood Urine Nitrate Urine Bilirubin Urine Urobilinogen Ur Leukocyte Esterase Urine RBC (Auto) Urine Microscopic WBC Ur Squamous Epith Cells Urine Bacteria Urine Yeast (Budding) Alcohol, Quantitative 08/24/18 08/24/18 08/25/18 19:15 20:25 05:00 WBC 17.3 H RBC 2.66 L Hgb 9.2 L Hct 27.4 L MCV 103.0 H MCH 34.5 H MCHC 33.4 RDW 18.6 H Plt Count 62 L MPV 10.4 Neut % (Auto) 89.1 H Lymph % (Auto) 4.9 L Mitchell % (Auto) 5.4 Eos % (Auto) 0.4 Baso % (Auto) 0.2 Neut # (Auto) 15.5 H Lymph # (Auto) 0.8 L Mitchell # (Auto) 0.9 H Eos # (Auto) 0.1 Baso # (Auto) 0.0 PT INR APTT Fibrinogen D-Dimer, Quantitative pCO2 28 L pO2 189 H HCO3 23.0 ABG pH 7.46 H ABG Total CO2 20.8 L ABG O2 Saturation 99.5 H ABG Base Excess -2.6 L Genaro Test Yes ABG Potassium 3.6 A-a O2 Difference 204.0 Glucose 114 H Lactate 1.7 Vent Mode A/c Mechanical Rate 12 FiO2 60.0 Tidal Volume 450 PEEP 5 Sodium 136 136.0 Potassium 3.9 Chloride 99 106.0 Carbon Dioxide 23 Anion Gap 18 BUN 73 H Creatinine 2.5 H Est GFR ( Amer) 23 Est GFR (Non-Af Amer) 19 Random Glucose 114 H Calcium 6.5 L Phosphorus 4.8 H Magnesium 1.7 Total Bilirubin 1.2 AST 1930 H ALT 315 H D Alkaline Phosphatase 183 H Ammonia Total Creatine Kinase Total Protein 5.6 L Albumin 2.9 L Globulin 2.7 Albumin/Globulin Ratio 1.1 25-OH Vitamin D Total Procalcitonin Arterial Blood Potassium 3.6 Urine Color Urine Clarity Urine pH Ur Specific [place] Urine Protein Urine Glucose (UA) Urine Ketones Urine Blood Urine Nitrate Urine Bilirubin Urine Urobilinogen Ur Leukocyte Esterase Urine RBC (Auto) Urine Microscopic WBC Ur Squamous Epith Cells Urine Bacteria Urine Yeast (Budding) Alcohol, Quantitative 08/25/18 08/25/18 08/25/18 05:00 05:00 05:15 WBC RBC Hgb Hct MCV MCH MCHC RDW Plt Count MPV Neut % (Auto) Lymph % (Auto) Mitchell % (Auto) Eos % (Auto) Baso % (Auto) Neut # (Auto) Lymph # (Auto) Mitchell # (Auto) Eos # (Auto) Baso # (Auto) PT INR APTT Fibrinogen D-Dimer, Quantitative pCO2 pO2 HCO3 ABG pH ABG Total CO2 ABG O2 Saturation ABG Base Excess Genaro Test ABG Potassium A-a O2 Difference Glucose Lactate Vent Mode Mechanical Rate FiO2 Tidal Volume PEEP Sodium 139 Potassium 3.5 L Chloride 104 Carbon Dioxide 20 L Anion Gap 19 BUN 81 H Creatinine 3.1 H Est GFR ( Amer) 18 Est GFR (Non-Af Amer) 15 Random Glucose 84 Calcium 6.6 L Phosphorus 4.1 Magnesium 1.6 Total Bilirubin 1.0 AST 1342 H ALT 259 H Alkaline Phosphatase 175 H Ammonia < 9 L D Total Creatine Kinase Total Protein 5.3 L Albumin 2.6 L Globulin 2.7 Albumin/Globulin Ratio 1.0 25-OH Vitamin D Total Procalcitonin Arterial Blood Potassium Urine Color Cherri Urine Clarity Turbid Urine pH 5.0 Ur Specific [place] 1.017 Urine Protein 100 Urine Glucose (UA) Neg Urine Ketones Negative Urine Blood Large Urine Nitrate Negative Urine Bilirubin Negative Urine Urobilinogen 0.2-1.0 Ur Leukocyte Esterase Mod Urine RBC (Auto) 178 H Urine Microscopic WBC 738 H Ur Squamous Epith Cells 10 H Urine Bacteria Occ H Urine Yeast (Budding) Many H Alcohol, Quantitative 08/25/18 08/25/18 05:34 10:48 WBC RBC Hgb Hct MCV MCH MCHC RDW Plt Count MPV Neut % (Auto) Lymph % (Auto) Mitchell % (Auto) Eos % (Auto) Baso % (Auto) Neut # (Auto) Lymph # (Auto) Mitchell # (Auto) Eos # (Auto) Baso # (Auto) PT INR APTT Fibrinogen D-Dimer, Quantitative pCO2 26 L pO2 132 H HCO3 22.0 ABG pH 7.46 H ABG Total CO2 19.3 L ABG O2 Saturation 99.6 H ABG Base Excess -3.8 L Genaro Test Yes ABG Potassium 3.4 L A-a O2 Difference 263.0 Glucose 92 Lactate 1.2 Vent Mode A/c Mechanical Rate 12 FiO2 60.0 Tidal Volume 450 PEEP 5 Sodium 138.0 Potassium Chloride 109.0 H Carbon Dioxide Anion Gap BUN Creatinine Est GFR ( Amer) Est GFR (Non-Af Amer) Random Glucose Calcium Phosphorus Magnesium Total Bilirubin AST ALT Alkaline Phosphatase Ammonia Total Creatine Kinase 3008 H Total Protein Albumin Globulin Albumin/Globulin Ratio 25-OH Vitamin D Total Procalcitonin Arterial Blood Potassium 3.4 L Urine Color Urine Clarity Urine pH Ur Specific [place] Urine Protein Urine Glucose (UA) Urine Ketones Urine Blood Urine Nitrate Urine Bilirubin Urine Urobilinogen Ur Leukocyte Esterase Urine RBC (Auto) Urine Microscopic WBC Ur Squamous Epith Cells Urine Bacteria Urine Yeast (Budding) Alcohol, Quantitative Assessment & Plan (1) Thrombocytopenia Assessment and Plan: likely sepsis related no current DIC; trend fibrinogen transfuse plt if < 20,000 will review peripheral smear check HIV and hepatitis panel Status: Acute (2) Coagulopathy Assessment and Plan: no current DIC likely nutritional ? liver disease from alcohol vit K and FFP PRN Status: Acute (3) Anemia Assessment and Plan: retic count, b12, folate, ferritin, FOBT to further characterize likely anemia of chronic disease transfusion support PRN Status: Acute (4) Leukocytosis Assessment and Plan: on antibiotics Status: Acute (5) History of head and neck cancer Assessment and Plan: s/p surgery with ? recurrence in 2009 can evaluate once clinical status improved Thank you for this interesting consult. Status: Acute
--- NOTE | 2018-08-25 13:05 | US ---
Date of service: 08/25/2018 PROCEDURE: Ultrasound of the Kidneys HISTORY: rule out obstructive uropathy COMPARISON: None available. TECHNIQUE: Sonogram of the kidneys. FINDINGS: RIGHT KIDNEY: Measures: 8.8 cm. Normal in size, contour and echogenicity. No stone, solid mass lesion or hydronephrosis visualized. LEFT KIDNEY: Measures: 10.5 cm. Normal in size, contour and echogenicity. No stone, solid mass lesion or hydronephrosis visualized. OTHER FINDINGS: None. IMPRESSION: Unremarkable renal sonogram.
--- NOTE | 2018-08-25 13:20 | RAD ---
Date of service: 08/25/2018 HISTORY: intubated COMPARISON: Comparison chest 08/24/2018. TECHNIQUE: 1 view obtained. FINDINGS: Note that the examination is somewhat limited due to partial obscuration of the right and to a lesser degree left medial lung apices. In situ ETT, tip of which lies approximately 2.3 cm above jac. There also an NGT present, the tip of which is poorly seen though distal P aspect does lie well below EG junction. LUNGS: Suspect mild bibasilar atelectasis and small bilateral effusions right larger than left. PLEURA: As above. No pneumothorax apparent. CARDIOVASCULAR: Aortic atherosclerotic calcification present. Heart size is upper limits normal/borderline enlarged. No pulmonary vascular congestion. OSSEOUS STRUCTURES: No significant abnormalities. VISUALIZED UPPER ABDOMEN: Normal. OTHER FINDINGS: None. IMPRESSION: Suspect mild bibasilar atelectasis and small bilateral effusions right larger than left.
--- NOTE | 2018-08-25 14:24 | CP.PCM.PN ---
Subjective - Date & Time of Evaluation Date of Evaluation: 08/25/18 - Subjective Subjective: F/U respiratory failure Intubated, no response, comatose. Objective - Vital Signs/Intake and Output Vital Signs (last 24 hours): Temp Pulse Resp BP Pulse Ox 98.3 F 81 25 H 137/71 100 08/25/18 12:00 08/25/18 12:00 08/25/18 12:00 08/25/18 12:00 08/25/18 12:00 Intake and Output: 08/25/18 08/25/18 06:59 18:59 Intake Total 1400 350 Output Total 35 Balance 1365 350 - Medications Medications: Current Medications Acetaminophen (Tylenol 650 Mg Supp) 650 mg [place] Q6 PRN PRN Reason: Fever >100.4 F Last Admin: 08/23/18 16:24 Dose: 650 mg Calcium Carbonate (Oscal) 500 mg PO TID [facility] Last Admin: 08/25/18 12:04 Dose: 500 mg Dimethicone (Proshield Plus Skin Protectant) 1 applic TOP Q8 [facility] Last Admin: 08/25/18 10:50 Dose: 1 applic Ergocalciferol (Drisdol 50,000 Intl Units Cap) 1 cap PO Q7D [facility] Last Admin: 08/25/18 12:04 Dose: 1 cap Folic Acid (Folic Acid) 1 mg PO DAILY [facility] Last Admin: 08/25/18 08:51 Dose: 1 mg Heparin Sodium (Porcine) (Heparin) 5,000 units SC Q12 [facility]; Protocol Last Admin: 08/24/18 21:00 Dose: 5,000 units Piperacillin Sod/Tazobactam (Sod 2.25 gm/ Sodium Chloride) 100 mls @ 100 mls/hr IVPB Q8 [facility]; Protocol Last Admin: 08/25/18 08:52 Dose: 100 mls/hr Metronidazole (Flagyl 500mg/100ml Ns) 100 mls @ 100 mls/hr IVPB Q8H [facility]; Protocol Last Admin: 08/25/18 10:19 Dose: 100 mls/hr Pantoprazole Sodium (Protonix Inj) 40 mg IVP DAILY [facility] Last Admin: 08/25/18 08:51 Dose: 40 mg Thiamine HCl (Vitamin B1 Inj) 100 mg IM DAILY [facility] Last Admin: 08/25/18 10:18 Dose: 100 mg Vitamin B Complex/Vit C/Folic Acid (Nephro-Jannet) 1 tab PO DAILY [facility] Last Admin: 08/25/18 12:03 Dose: 1 tab - Labs Labs: 08/25/18 05:00 08/25/18 05:00 PT 13.4 Seconds (9.8-13.1) H 08/24/18 19:15 INR 1.2 08/24/18 19:15 APTT 35.1 Seconds (25.6-37.1) 08/24/18 19:15 - Constitutional Appears: Chronically Ill - Head Exam Head Exam: NORMAL INSPECTION - Eye Exam Additional comments: Pupil reactive - ENT Exam Additional comments: Intubated - Neck Exam Neck Exam: Normal Inspection - Respiratory Exam Respiratory Exam: Decreased Breath Sounds - Cardiovascular Exam Cardiovascular Exam: REGULAR RHYTHM - GI/Abdominal Exam GI & Abdominal Exam: Soft - Exam Additional comments: Segal Cath - Extremities Exam Additional comments: Ecchymosis on extremities. Mottling on all toes and plantar surface feet. Edema pelvis and thighs. - Back Exam Additional comments: Redness on gluteal fold. - Neurological Exam Additional comments: Intubated, comatose, plantar up - Skin Additional comments: as per extremties Assessment and Plan (1) Cerebral infarction Assessment & Plan: multiple Status: Acute (2) Acute respiratory failure Status: Acute (3) Septic shock Status: Acute (4) Altered mental status Status: Acute (5) Acute renal failure Status: Acute (6) Metabolic acidosis Status: Acute (7) Colitis Status: Acute (8) Transaminitis Status: Acute (9) Rhabdomyolysis Status: Acute (10) Hypernatremia Status: Resolved (11) DMII (diabetes mellitus, type 2) Status: Chronic (12) History of alcohol abuse Status: Chronic (13) Dementia Status: Chronic - Assessment and Plan (Free Text) Plan: MRI multiple cerebral infarcts, F/U CXR, EEG video, continue respiratory support, Flagyl, Zosyn and rest of Tx. Surgery, Hematology and GI consults appreciated.
--- NOTE | 2018-08-25 15:48 | CP.PCM.PN ---
Subjective - Date & Time of Evaluation Date of Evaluation: 08/25/18 Time of Evaluation: 15:43 - Subjective Subjective: Nephrology Consultation Note Assessment: critical Acute Kidney Injury (N17.9) likely due to ATN started HD 08/23/18 sepssi with shock, Colitis, thrombocytopenia acute CVA HAGMA, hyperkalemia, hypocalcemia hyperphos Dementia, COPD, ETOH abuse, Depression/Schizophrenias, Squamous cell carcinoma of mouth/neck, TIA rhabdomyolysis vit d def anemia Plan No acute need for dialysis today. Will plan for HD tomorrow depending upon family decision about goals of care Hypertension control with meds as ordered. Maintain hemodynamics stable. Avoid hypotension. Patient not on ACEI/ARB due to recent LESLIE Monitor Input/Output, daily weights and renal function with basic metabolic panel supplement lytes as needed ordered for 1 gram IV Ca today and weekly Vit D supplement. nephrovite daily Dose meds/antibiotics for reduced GFR. Avoid fleets enema/magnesium based laxatives. Avoid nephrotoxins/NSAIDs/ iodinated contrast (unless needed emergent ly) Glycemic control. overall prognosis poor Further work up for as per primary team Thanks for allowing me to participate in care of your patient. Will follow patient with you. Please call if any Qs. had d/w team Dr Js Ray Office: [phone] Subjective: Noted events overnight. Patients unresponsive. unable to obtain ROS Physical Examination: General Appearance: in no acute respiratory distress, ill appearing. orally intubated Vitals reviewed and noted as below ENT: orally intubated Neck; supple no lymphadenopathy, no thyromegaly or bruit Lungs: Normal respiratory rate/effort. Breath sounds bilateral equal and clear anteriorly Heart: Normal rate. s1s2 normal. No rub or gallop. Extremities: 1+ edema. No varicose veins Neurological: Patient is unresponsive Skin: Warm and dry. Normal turgor. No rash. Palpitation: Normal elasticity for age Abdomen: Abdomen is soft. Bowel sounds +. There is no abdominal tenderness, no guarding/rigidity no organomegaly Psych: unable MSK: echymoses over knee +. toes necrosis + : kidney or bladder not palpable. has wynne access: rt KIKE martinez Labs/imaging reviewed. Past medical history, past surgical history, family history, social history, allergy reviewed and noted as below Family hx: no hx of CKD. Rest non-contributory Objective - Vital Signs/Intake and Output Vital Signs (last 24 hours): Temp Pulse Resp BP Pulse Ox 98.3 F 78 23 122/65 100 08/25/18 12:00 08/25/18 14:00 08/25/18 14:00 08/25/18 14:00 08/25/18 14:00 Intake and Output: 08/25/18 08/25/18 06:59 18:59 Intake Total 1400 350 Output Total 35 Balance 1365 350 - Medications Medications: Current Medications Acetaminophen (Tylenol 650 Mg Supp) 650 mg [place] Q6 PRN PRN Reason: Fever >100.4 F Last Admin: 08/23/18 16:24 Dose: 650 mg Calcium Carbonate (Oscal) 500 mg PO TID [facility] Last Admin: 08/25/18 12:04 Dose: 500 mg Dimethicone (Proshield Plus Skin Protectant) 1 applic TOP Q8 [facility] Last Admin: 08/25/18 10:50 Dose: 1 applic Ergocalciferol (Drisdol 50,000 Intl Units Cap) 1 cap PO Q7D [facility] Last Admin: 08/25/18 12:04 Dose: 1 cap Folic Acid (Folic Acid) 1 mg PO DAILY [facility] Last Admin: 08/25/18 08:51 Dose: 1 mg Heparin Sodium (Porcine) (Heparin) 5,000 units SC Q12 [facility]; Protocol Last Admin: 08/24/18 21:00 Dose: 5,000 units Piperacillin Sod/Tazobactam (Sod 2.25 gm/ Sodium Chloride) 100 mls @ 100 mls/hr IVPB Q8 [facility]; Protocol Last Admin: 08/25/18 08:52 Dose: 100 mls/hr Metronidazole (Flagyl 500mg/100ml Ns) 100 mls @ 100 mls/hr IVPB Q8H [facility]; Protocol Last Admin: 08/25/18 10:19 Dose: 100 mls/hr Levetiracetam 500 mg/ Sodium (Chloride) 105 mls @ 210 mls/hr IVPB Q12 [facility] Pantoprazole Sodium (Protonix Inj) 40 mg IVP DAILY [facility] Last Admin: 08/25/18 08:51 Dose: 40 mg Thiamine HCl (Vitamin B1 Inj) 100 mg IM DAILY [facility] Last Admin: 08/25/18 10:18 Dose: 100 mg Vitamin B Complex/Vit C/Folic Acid (Nephro-Jannet) 1 tab PO DAILY [facility] Last Admin: 08/25/18 12:03 Dose: 1 tab - Labs Labs: 08/25/18 05:00 08/25/18 05:00 PT 13.4 Seconds (9.8-13.1) H 08/24/18 19:15 INR 1.2 08/24/18 19:15 APTT 35.1 Seconds (25.6-37.1) 08/24/18 19:15
[2018-08-25] MEDS: levETIRAcetam 500 MG in Sodium Chloride 0.9% 100 ML IVPB SCH (20:51)
--- NOTE | 2018-08-25 23:17 | CP.PCM.PN ---
Subjective - Date & Time of Evaluation Date of Evaluation: 08/25/18 Time of Evaluation: 09:00 - Subjective Subjective: Patient remains unresponsive. Having loose stools. Objective - Vital Signs/Intake and Output Vital Signs (last 24 hours): Temp Pulse Resp BP Pulse Ox 99.3 F 82 22 138/66 100 08/25/18 22:00 08/25/18 22:00 08/25/18 22:00 08/25/18 22:00 08/25/18 22:00 Intake and Output: 08/25/18 08/26/18 18:59 06:59 Intake Total 430 530 Output Total 50 Balance 380 530 - Medications Medications: Current Medications Acetaminophen (Tylenol 650 Mg Supp) 650 mg [place] Q6 PRN PRN Reason: Fever >100.4 F Last Admin: 08/23/18 16:24 Dose: 650 mg Calcium Carbonate (Oscal) 500 mg PO TID [facility] Last Admin: 08/25/18 12:04 Dose: 500 mg Dimethicone (Proshield Plus Skin Protectant) 1 applic TOP Q8 [facility] Last Admin: 08/25/18 16:10 Dose: 1 applic Ergocalciferol (Drisdol 50,000 Intl Units Cap) 1 cap PO Q7D [facility] Last Admin: 08/25/18 12:04 Dose: 1 cap Folic Acid (Folic Acid) 1 mg PO DAILY [facility] Last Admin: 08/25/18 08:51 Dose: 1 mg Heparin Sodium (Porcine) (Heparin) 5,000 units SC Q12 [facility]; Protocol Last Admin: 08/24/18 21:00 Dose: 5,000 units Piperacillin Sod/Tazobactam (Sod 2.25 gm/ Sodium Chloride) 100 mls @ 100 mls/hr IVPB Q8 [facility]; Protocol Last Admin: 08/25/18 16:10 Dose: 100 mls/hr Metronidazole (Flagyl 500mg/100ml Ns) 100 mls @ 100 mls/hr IVPB Q8H [facility]; Protocol Last Admin: 08/25/18 19:45 Dose: 100 mls/hr Levetiracetam 500 mg/ Sodium (Chloride) 105 mls @ 210 mls/hr IVPB Q12 [facility] Last Admin: 08/25/18 20:51 Dose: 210 mls/hr Pantoprazole Sodium (Protonix Inj) 40 mg IVP DAILY [facility] Last Admin: 08/25/18 08:51 Dose: 40 mg Thiamine HCl (Vitamin B1 Inj) 100 mg IM DAILY [facility] Last Admin: 08/25/18 10:18 Dose: 100 mg Vitamin B Complex/Vit C/Folic Acid (Nephro-Jannet) 1 tab PO DAILY [facility] Last Admin: 08/25/18 12:03 Dose: 1 tab - Labs Labs: 08/25/18 05:00 08/25/18 05:00 PT 13.4 Seconds (9.8-13.1) H 08/24/18 19:15 INR 1.2 08/24/18 19:15 APTT 35.1 Seconds (25.6-37.1) 08/24/18 19:15 - Head Exam Head Exam: ATRAUMATIC - ENT Exam ENT Exam: Normal Exam - Respiratory Exam Respiratory Exam: Clear to Ausculation Bilateral - Cardiovascular Exam Cardiovascular Exam: +S1, +S2 - GI/Abdominal Exam GI & Abdominal Exam: Distended, Hypoactive Bowel Sounds Assessment and Plan (1) Colitis Assessment & Plan: Colitis likely due to ischemia before being brought to ER> Continue IV fluids and antibiotics. Status: Acute
[2018-08-26] MEDS: Proshield Plus GEL TOP SCH ×3 (00:10→16:09)
[2018-08-26] MEDS: metroNIDAZOLE 500mg/100ml NS 100 ML IVPB SCH ×3 (03:08→20:31)
[2018-08-26 04:28] LABS: ABG ALLEN TEST YES; ARTERIAL BLOOD GAS HCO3 20.2 mmol/L (21-28); ARTERIAL BLOOD GAS O2 CAPACITY 12.8 mL/dL (16-24); ARTERIAL BLOOD GAS O2 CONTENT 12.9 ML/dL (15-23); ARTERIAL BLOOD GAS O2 SAT 100.4 % (95-98); ARTERIAL BLOOD GAS PCO2 25 mm/Hg (35-45); ARTERIAL BLOOD GAS PH 7.44 (7.35-7.45); ARTERIAL BLOOD GAS PO2 223 mm/Hg (80-100); ARTERIAL BLOOD GAS TCO2 17.8 mmol/L (22-28)
[2018-08-26 05:36] LABS: HEMOGLOBIN 8.5 g/dL (12.0-16.0); MEAN CELL VOLUME 102.8 fl (81.0-99.0); MEAN CORPUSCULAR HEMOGLOBIN 34.9 pg (27.0-31.0); RBC 2.43 Mil/uL (3.80-5.20); RED CELL DISTRIBUTION WIDTH 18.3 % (11.5-14.5); WHITE BLOOD COUNT 17.3 K/uL (4.8-10.8)
[2018-08-26 06:09] LABS: BLOOD UREA NITROGEN 94 mg/dl (7-17); CALCIUM 7.1 mg/dL (8.4-10.2)
[2018-08-26] MEDS ORDERED: Potassium Chloride 20 mEq/15 ml LIQ UD NG ONE (06:47)
[2018-08-26 07:10] LABS: GFR NON-AFRICAN AMERICAN 12
--- NOTE | 2018-08-26 07:40 | CP.PCM.PN ---
Subjective - Date & Time of Evaluation Date of Evaluation: 08/26/18 Time of Evaluation: 06:45 - Subjective Subjective: General Surgery Note for Dr. Al Patient seen and examined at bedside. Patient remains intubated and on mechanical ventilation. GCS 3T. No vasopressors. Palliative care and Guest Services Manager had meeting with family yesterday. Family leaning towards terminal extubation due to poor prognosis. Objective - Vital Signs/Intake and Output Vital Signs (last 24 hours): Temp Pulse Resp BP Pulse Ox 98.3 F 76 22 139/64 100 08/26/18 06:00 08/26/18 06:00 08/26/18 06:00 08/26/18 06:00 08/26/18 06:00 Intake and Output: 08/26/18 08/26/18 06:59 18:59 Intake Total 1665 Output Total 150 Balance 1515 - Medications Medications: Current Medications Acetaminophen (Tylenol 650 Mg Supp) 650 mg [place] Q6 PRN PRN Reason: Fever >100.4 F Last Admin: 08/23/18 16:24 Dose: 650 mg Calcium Carbonate (Oscal) 500 mg PO TID [facility] Last Admin: 08/25/18 12:04 Dose: 500 mg Dimethicone (Proshield Plus Skin Protectant) 1 applic TOP Q8 [facility] Last Admin: 08/26/18 00:10 Dose: 1 applic Ergocalciferol (Drisdol 50,000 Intl Units Cap) 1 cap PO Q7D [facility] Last Admin: 08/25/18 12:04 Dose: 1 cap Folic Acid (Folic Acid) 1 mg PO DAILY [facility] Last Admin: 08/25/18 08:51 Dose: 1 mg Heparin Sodium (Porcine) (Heparin) 5,000 units SC Q12 [facility]; Protocol Last Admin: 08/24/18 21:00 Dose: 5,000 units Piperacillin Sod/Tazobactam (Sod 2.25 gm/ Sodium Chloride) 100 mls @ 100 mls/hr IVPB Q8 [facility]; Protocol Last Admin: 08/26/18 00:10 Dose: 100 mls/hr Metronidazole (Flagyl 500mg/100ml Ns) 100 mls @ 100 mls/hr IVPB Q8H [facility]; Protocol Last Admin: 08/26/18 03:08 Dose: 100 mls/hr Levetiracetam 500 mg/ Sodium (Chloride) 105 mls @ 210 mls/hr IVPB Q12 [facility] Last Admin: 08/25/18 20:51 Dose: 210 mls/hr Potassium Chloride/Sodium Chloride (Potassium Chl 20 Meq In Ns) 1,000 mls @ 125 mls/hr IV .Q8H [facility] Stop: 08/27/18 06:47 Pantoprazole Sodium (Protonix Inj) 40 mg IVP DAILY [facility] Last Admin: 08/25/18 08:51 Dose: 40 mg Thiamine HCl (Vitamin B1 Inj) 100 mg IM DAILY [facility] Last Admin: 08/25/18 10:18 Dose: 100 mg Vitamin B Complex/Vit C/Folic Acid (Nephro-Jannet) 1 tab PO DAILY [facility] Last Admin: 08/25/18 12:03 Dose: 1 tab - Labs Labs: 08/26/18 05:15 08/26/18 04:00 PT 13.4 Seconds (9.8-13.1) H 08/24/18 19:15 INR 1.2 08/24/18 19:15 APTT 35.1 Seconds (25.6-37.1) 08/24/18 19:15 - Additional Findings Additional findings: - Constitutional Appears: Toxic, Chronically Ill - Head Exam Head Exam: ATRAUMATIC, NORMOCEPHALIC - Eye Exam Additional comments: no corneal reflex - ENT Exam ENT Exam: Mucous Membranes Dry Additional comments: no gag or cough reflex - Respiratory Exam Additional comments: intubated on PRVC - Cardiovascular Exam Cardiovascular Exam: REGULAR RHYTHM - GI/Abdominal Exam GI & Abdominal Exam: Normal Bowel Sounds, Soft. absent: Distended, Firm, Guarding, Hernia, Rebound, Rigid, Tenderness - Extremities Exam Additional comments: lower extremities with improvement in mottling - Neurological Exam Neurological exam: Altered Additional comments: GCS3T - Psychiatric Exam Psychiatric exam: Flat Affect - Skin Skin Exam: Dry Additional comments: lower extremities with improvement in mottling Assessment and Plan - Assessment and Plan (Free Text) Assessment: 73F who presents with septic shock, lactic acidosis, rhabdo, LESLIE on HD, and respiratory failure Plan: -No surgical intervention indicated -f/u palliative care -f/u family decision -Management as per ICU -Discussed with Dr. Servando Razo PGY2
[2018-08-26] MEDS: levETIRAcetam 500 MG in Sodium Chloride 0.9% 100 ML IVPB SCH ×2 (09:26→21:37)
[2018-08-26] MEDS: Potassium Chl 20 mEq in NS 1,000 ML IV SCH ×2 (09:27→20:32)
[2018-08-26] MEDS: Multivitamin Vitamin B Complex (Nephro-Vite) Tab PO SCH (09:27)
[2018-08-26] MEDS: Thiamine 100 mg/ml Inj IM SCH (09:29)
[2018-08-26 09:43] LABS: PROTHROMBIN TIME 11.9 Seconds (9.8-13.1)
[2018-08-26 09:45] LABS: PARTIAL THROMBOPLASTIN TIME 28.3 Seconds (25.6-37.1)
[2018-08-26] MEDS ORDERED: EPOETIN ALFA 10,000 UNIT/ML ML IV ONE (09:45)
--- NOTE | 2018-08-26 10:24 | CP.CCUPN ---
<Jennifer Mejia - Last Filed: 08/26/18 10:18> CCU Subjective - Physician Review Subjective (Free Text): Pt seen and examined this am. GCS 5 Currently intubated on MV w/ FIO2 60% Discussed with Dr. Ray, plan for HD today. 08/26/18 10:18 CCU Objective - Vital Signs / Intake & Output Vital Signs (Last 4 hours): Vital Signs Temp Pulse Resp BP Pulse Ox 08/26/18 06:00 98.3 F 76 22 139/64 100 08/26/18 04:00 98.7 F 80 24 134/53 L 100 Intake and Output (Last 8hrs): Intake & Output 08/25/18 08/26/18 08/26/18 22:59 06:59 14:59 Intake Total 610 1135 Output Total 50 150 Balance 560 985 Weight 148 lb Intake: IV 250 875 Intake, Piggyback 200 100 Tube Feeding 160 160 Output: Urine 50 150 Urethral (Segal) 50 150 Other: # Bowel Movements 1 1 - Physical Exam Head: Positive for: Atraumatic, Normocephalic Pupils: Positive for: Other (no corneal reflex, no doll's eyes, + NYSTAGMUS ). Negative for: PERRL, Sluggish Extroacular Muscles: Positive for: EOMI Conjunctiva: Positive for: Normal. Negative for: Injected, Icteric Neck: Positive for: Normal Range of Motion, Trachea Midline. Negative for: Meningeal Signs, MIDLINE TENDERNESS, Paraspinal Tenderness, JVD, Lymphade nopathy, Bruit, Other Respiratory/Chest: Positive for: Decreased Breath Sounds, Rhonchi. Negative for: Respiratory Distress, Accessory Muscle Use Cardiovascular: Positive for: Regular Rate and Rhythm, Normal S1, S2, Peripheal Pulses Present. Negative for: Murmurs, Irregular Rhythm Abdomen: Positive for: Normal Bowel Sounds. Negative for: Distention Lower Extremity: Positive for: Other (+Mottling +cyanotic toes) Neurological: Negative for: GCS=15, CN II-XII Intact, Speech Normal Psychiatric: Negative for: Alert, Oriented x 3 (Patient is unresponsive to painful stimuli, no corneal reflex, no doll's eyes) - Medications Active Medications: Active Medications Generic Name Dose Route Start Last Admin Trade Name Freq PRN Reason Stop Dose Admin Acetaminophen 650 mg 08/22/18 23:49 08/23/18 16:24 Tylenol 650 Mg Supp [place] 650 mg Q6 PRN Administration Fever >100.4 F Calcium Carbonate 500 mg 08/24/18 13:00 08/25/18 12:04 Oscal PO 500 mg TID BHUPENDRA Administration Dimethicone 1 applic 08/25/18 10:45 08/26/18 00:10 Proshield Plus Skin Protectant TOP 1 applic Q8 BHUPENDRA Administration Ergocalciferol 1 cap 08/25/18 11:00 08/25/18 12:04 Drisdol 50,000 Intl Units Cap PO 1 cap Q7D BHUPENDRA Administration Folic Acid 1 mg 08/24/18 09:00 08/25/18 08:51 Folic Acid PO 1 mg DAILY BHUPENDRA Administration Heparin Sodium (Porcine) 5,000 units 08/23/18 21:00 08/24/18 21:00 Heparin SC 5,000 units Q12 BHUPENDRA Administration Protocol Piperacillin Sod/Tazobactam 100 mls @ 100 mls/hr 08/23/18 01:00 08/26/18 00:10 Sod 2.25 gm/ Sodium Chloride IVPB 100 mls/hr Q8 BHUPENDRA Administration Protocol Metronidazole 100 mls @ 100 mls/hr 08/24/18 19:00 08/26/18 03:08 Flagyl 500mg/100ml Ns IVPB 100 mls/hr Q8H BHUPENDRA Administration Protocol Levetiracetam 500 mg/ Sodium 105 mls @ 210 mls/hr 08/25/18 21:00 08/25/18 20:51 Chloride IVPB 210 mls/hr Q12 BHUPENDRA Administration Potassium Chloride/Sodium Chloride 1,000 mls @ 125 mls/hr 08/26/18 07:00 Potassium Chl 20 Meq In Ns IV 08/27/18 06:47 .Q8H BHUPENDRA Pantoprazole Sodium 40 mg 08/23/18 17:00 08/25/18 08:51 Protonix Inj IVP 40 mg DAILY BHUPENDRA Administration Thiamine HCl 100 mg 08/24/18 09:00 08/25/18 10:18 Vitamin B1 Inj IM 100 mg DAILY BHUPENDRA Administration Vitamin B Complex/Vit C/Folic Acid 1 tab 08/25/18 11:00 08/25/18 12:03 Nephro-Jannet PO 1 tab DAILY BHUPENDRA Administration - Patient Studies Lab Studies: Microbiology Studies 08/22/18 16:14 Blood Culture - Preliminary Blood-Venous NO GROWTH AFTER 3 DAYS 08/22/18 15:50 Blood Culture - Preliminary Blood-Venous NO GROWTH AFTER 3 DAYS 08/24/18 11:50 Gram Stain - Final Trachasp Sputum Culture - Preliminary Gram Negative Puma Lab Studies 08/26/18 08/26/18 08/26/18 Range/Units 05:15 04:16 04:00 WBC 17.3 H (4.8-10.8) K/uL RBC 2.43 L (3.80-5.20) Mil/uL Hgb 8.5 L (12.0-16.0) g/dL Hct 25.0 L (34.0-47.0) % MCV 102.8 H (81.0-99.0) fl MCH 34.9 H (27.0-31.0) pg MCHC 34.0 (33.0-37.0) g/dL RDW 18.3 H (11.5-14.5) % Plt Count 47 L (130-400) K/uL Retic Count 1.8 H (0.5-1.5) % pCO2 25 L (35-45) mm/Hg pO2 223 H (80-100) mm/Hg HCO3 20.2 L (21-28) mmol/L ABG pH 7.44 (7.35-7.45) ABG Total CO2 17.8 L (22-28) mmol/L ABG O2 Saturation 100.4 H (95-98) % ABG O2 Content 12.9 L (15-23) ML/dL ABG Base Excess -6.1 L (-2.0-3.0) mmol/L ABG Hemoglobin 9.0 L (11.7-17.4) g/dL ABG Carboxyhemoglobin 1.2 (0.5-1.5) % POC ABG HHb (Measured) -0.4 L (0.0-5.0) % ABG Methemoglobin 1.3 (0.0-3.0) % ABG O2 Capacity 12.8 L (16-24) mL/dL Genaro Test Yes A-a O2 Difference 174.0 mm/Hg Hgb O2 Saturation 97.9 (95.0-98.0) % Vent Mode A/c Mechanical Rate 12 FiO2 60.0 % Tidal Volume 450 PEEP 5 Sodium 141 (132-148) mmol/l Potassium 3.2 L (3.6-5.0) MMOL/L Chloride 108 H (98-107) mmol/L Carbon Dioxide 20 L (22-30) mmol/L Anion Gap 16 (10-20) BUN 94 H (7-17) mg/dl Creatinine 3.8 H (0.7-1.2) mg/dl Est GFR ( Amer) 14 Est GFR (Non-Af Amer) 12 Random Glucose 118 H (65-105) mg/dL Calcium 7.1 L (8.4-10.2) mg/dL Ferritin 624.0 H (11.1-264.0) ng/Ml Total Creatine Kinase (30-135) U/L Vitamin B12 > 1000 H (239-931) pg/mL PTH Intact Whole Molec (14-64) pg/mL 08/25/18 08/24/18 Range/Units 10:48 10:15 WBC (4.8-10.8) K/uL RBC (3.80-5.20) Mil/uL Hgb (12.0-16.0) g/dL Hct (34.0-47.0) % MCV (81.0-99.0) fl MCH (27.0-31.0) pg MCHC (33.0-37.0) g/dL RDW (11.5-14.5) % Plt Count (130-400) K/uL Retic Count (0.5-1.5) % pCO2 (35-45) mm/Hg pO2 (80-100) mm/Hg HCO3 (21-28) mmol/L ABG pH (7.35-7.45) ABG Total CO2 (22-28) mmol/L ABG O2 Saturation (95-98) % ABG O2 Content (15-23) ML/dL ABG Base Excess (-2.0-3.0) mmol/L ABG Hemoglobin (11.7-17.4) g/dL ABG Carboxyhemoglobin (0.5-1.5) % POC ABG HHb (Measured) (0.0-5.0) % ABG Methemoglobin (0.0-3.0) % ABG O2 Capacity (16-24) mL/dL Genaro Test A-a O2 Difference mm/Hg Hgb O2 Saturation (95.0-98.0) % Vent Mode Mechanical Rate FiO2 % Tidal Volume PEEP Sodium (132-148) mmol/l Potassium (3.6-5.0) MMOL/L Chloride (98-107) mmol/L Carbon Dioxide (22-30) mmol/L Anion Gap (10-20) BUN (7-17) mg/dl Creatinine (0.7-1.2) mg/dl Est GFR ( Amer) Est GFR (Non-Af Amer) Random Glucose (65-105) mg/dL Calcium (8.4-10.2) mg/dL Ferritin (11.1-264.0) ng/Ml Total Creatine Kinase 3008 H (30-135) U/L Vitamin B12 (239-931) pg/mL PTH Intact Whole Molec 454 H (14-64) pg/mL Laboratory Results - last 24 hr 08/24/18 08/25/18 08/26/18 10:15 10:48 04:00 WBC RBC Hgb Hct MCV MCH MCHC RDW Plt Count Retic Count pCO2 pO2 HCO3 ABG pH ABG Total CO2 ABG O2 Saturation ABG O2 Content ABG Base Excess ABG Hemoglobin ABG Carboxyhemoglobin POC ABG HHb (Measured) ABG Methemoglobin ABG O2 Capacity Genaro Test A-a O2 Difference Hgb O2 Saturation Vent Mode Mechanical Rate FiO2 Tidal Volume PEEP Sodium 141 Potassium 3.2 L Chloride 108 H Carbon Dioxide 20 L Anion Gap 16 BUN 94 H Creatinine 3.8 H Est GFR ( Amer) 14 Est GFR (Non-Af Amer) 12 Random Glucose 118 H Calcium 7.1 L Ferritin 624.0 H Total Creatine Kinase 3008 H Vitamin B12 > 1000 H PTH Intact Whole Molec 454 H 08/26/18 08/26/18 04:16 05:15 WBC 17.3 H RBC 2.43 L Hgb 8.5 L Hct 25.0 L MCV 102.8 H MCH 34.9 H MCHC 34.0 RDW 18.3 H Plt Count 47 L Retic Count 1.8 H pCO2 25 L pO2 223 H HCO3 20.2 L ABG pH 7.44 ABG Total CO2 17.8 L ABG O2 Saturation 100.4 H ABG O2 Content 12.9 L ABG Base Excess -6.1 L ABG Hemoglobin 9.0 L ABG Carboxyhemoglobin 1.2 POC ABG HHb (Measured) -0.4 L ABG Methemoglobin 1.3 ABG O2 Capacity 12.8 L Genaro Test Yes A-a O2 Difference 174.0 Hgb O2 Saturation 97.9 Vent Mode A/c Mechanical Rate 12 FiO2 60.0 Tidal Volume 450 PEEP 5 Sodium Potassium Chloride Carbon Dioxide Anion Gap BUN Creatinine Est GFR ( Amer) Est GFR (Non-Af Amer) Random Glucose Calcium Ferritin Total Creatine Kinase Vitamin B12 PTH Intact Whole Molec Radiology Impressions: Radiology Impressions Brain MRI 08/23/18 15:57 IMPRESSION: 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 Cortical edema and swelling can also be seen on the FLAIR and T2 images. There is no hemorrhage. This pattern of infarction in multiple vascular distributions is most consistent with a hypotensive event. Renal Ultrasound 08/24/18 15:52 IMPRESSION: Unremarkable renal sonogram. Chest X-Ray 08/25/18 09:00 IMPRESSION: Suspect mild bibasilar atelectasis and small bilateral effusions right larger than left. Fingerstick Blood Sugar Results: 238 Assessment/Plan - Assessment and Plan (Free Text) Assessment: Pt is a 73 y/o female with hx of Dementia, COPD, ETOH abuse, Depression/Schizophrenias, Squamous cell carcinoma of mouth/neck, TIA brought to hospital on 08/22 after being found at home by neighbor with AMS on floor covered in feces, in ED was agitated and tachypnic, intubated for airway protection, found to be in Septic shock, CT Abdomen reporting diffuse colitis, and Acute renal failure w/ metabolic acidosis s/p 2 Bicarb, Brain MRI demonstrating extensive multihemispheric infarcts. Receiving urgent HD. Prognosis guarded, goals of care. Palliative on board. Plan for HD today Family meeting held on 08/25 with pt's POA (Daughter Ruth Andrews) and 2 other family members. Also present for meeting was Palliative Care BOAT TESTER (Marci Roy) and Dr. Peterson. Family informed of pt's current critical condition and poor prognosis. All questions and concerns were addressed. Family states unanimously that they would like to maintain all aggressive measures (including HD) and will readdress goals of care in 1-2 days. #Neuro - Was on Fentany and Versed ggt on Day 1 of admission - Has remained comatose w/ GCS 5 - Likely Anoxic brain Injury 2/2 Multi-lobular brain infarcts on Brain MRI vs Metabolic encephalopathy in setting of Septic shock, Metabolic acidosis, Uremia vs Alcohol withdrawal - Utox negative, ETOH wnl - Keppra started by neurology #Cardio - Weaned of Levophed, BP stable - Currently hemodynamically stable #Pulm - Intubated on MV FIO 60% - Not candidate for weaning due to current mental status - Cxray-wnl #Renal - Acute renal failure w/ Oliguria. Likely Pre-renal 2/2 dehydration/sepsis vs direct toxic injury/Rhabdo (CPK 3k) - BUN/Crea 200/5 on admission. Slight improvement with Urgent HD x2. BUN/Crea 94/3.8 today - Plan for HD today - Nephrology following, Dr. Ray - Hypocalcemia w/ intermittent repletions - Metabolic acidosis w/ AG 37 on presentation, Received Bicarb x2, Acid- base status improved - IV fluids, NS at 125cc/hr #GI - Diffuse Colitis on CTAP on admission - Repeat CTAP w/ po contrast shows worsening colitis and distended small bowel, no obstruction - GI and Surgery following, recommendations appreciated - AST 1000's, shock liver. Will provide circulatory support - C diff toxic negative excluding active infection - NG tube feedings started, continuous/trickle feeds as per Surgery #Heme/ID - Hg stable - Platelets decreased to 40; HIT workup pending. Heparin held in light of + FOBT - Heme/Onc consulted - DIC work up sent; trend fibrinogen - SEPSIS criteria met via: Febrile, Leukocytosis 17 w/ Bandemia in 30s. Lactic acidosis resolved. Procalcitonin 37 - Bcx, Ucx, Stool cx pending - Sputum Cx (+) Stenotrophomonas Maltophilia - Vanco, Zosyn and Flagyl - Given AMS; will consider Lumbar Tap to r/u Meningitis/Encephalitis - LE mottling and scattered bruises/cyanotic digits concerning for DIC. Workup sent #PPX: GI PPx: Protonix IV daily DVT ppx: Heparin SQ (held) SCD's for now Lines: Segal, HD cathether, R. Femoral Triple lumen Next of Kin: daughter Abdon Andrews Discussed case with Dr. Linda Mejia PGY2 <Chip Mckeon - Last Filed: 08/26/18 13:04> CCU Objective - Vital Signs / Intake & Output Vital Signs (Last 4 hours): Vital Signs Pulse Resp BP Pulse Ox 08/26/18 10:00 79 23 130/59 L 100 Intake and Output (Last 8hrs): Intake & Output 08/25/18 08/26/18 08/26/18 22:59 06:59 14:59 Intake Total 610 1135 1125 Output Total 50 150 140 Balance 560 985 985 Weight 148 lb Intake: IV 250 875 625 Intake, Piggyback 200 100 300 Tube Feeding 160 160 100 Free Water Flush 100 Output: Urine 50 150 140 Urethral (Segal) 50 150 140 Other: # Bowel Movements 1 1 - Medications Active Medications: Active Medications Generic Name Dose Route Start Last Admin Trade Name Freq PRN Reason Stop Dose Admin Acetaminophen 650 mg 08/22/18 23:49 08/23/18 16:24 Tylenol 650 Mg Supp [place] 650 mg Q6 PRN Administration Fever >100.4 F Calcium Carbonate 500 mg 08/24/18 13:00 08/26/18 12:00 Oscal PO 500 mg TID BHUPENDRA Administration Dimethicone 1 applic 08/25/18 10:45 08/26/18 09:28 Proshield Plus Skin Protectant TOP 1 applic Q8 BHUPENDRA Administration Ergocalciferol 1 cap 08/25/18 11:00 08/25/18 12:04 Drisdol 50,000 Intl Units Cap PO 1 cap Q7D BHUPENDRA Administration Folic Acid 1 mg 08/24/18 09:00 08/26/18 09:26 Folic Acid PO 1 mg DAILY BHUPENDRA Administration Heparin Sodium (Porcine) 5,000 units 08/23/18 21:00 08/24/18 21:00 Heparin SC 5,000 units Q12 BHUPENDRA Administration Protocol Piperacillin Sod/Tazobactam 100 mls @ 100 mls/hr 08/23/18 01:00 08/26/18 09:29 Sod 2.25 gm/ Sodium Chloride IVPB 100 mls/hr Q8 BHUPENDRA Administration Protocol Metronidazole 100 mls @ 100 mls/hr 08/24/18 19:00 08/26/18 10:06 Flagyl 500mg/100ml Ns IVPB 100 mls/hr Q8H BHUPENDRA Administration Protocol Levetiracetam 500 mg/ Sodium 105 mls @ 210 mls/hr 08/25/18 21:00 08/26/18 09:26 Chloride IVPB 210 mls/hr Q12 BHUPENDRA Administration Potassium Chloride/Sodium Chloride 1,000 mls @ 125 mls/hr 08/26/18 07:00 08/26/18 09:27 Potassium Chl 20 Meq In Ns IV 08/27/18 06:47 125 mls/hr .Q8H BHUPENDRA Administration Pantoprazole Sodium 40 mg 08/23/18 17:00 08/26/18 09:29 Protonix Inj IVP 40 mg DAILY BHUPENDRA Administration Thiamine HCl 100 mg 08/24/18 09:00 08/26/18 09:29 Vitamin B1 Inj IM 100 mg DAILY BHUPENDRA Administration Vitamin B Complex/Vit C/Folic Acid 1 tab 08/25/18 11:00 08/26/18 09:27 Nephro-Jannet PO 1 tab DAILY BHUPENDRA Administration - Patient Studies Lab Studies: Microbiology Studies 08/24/18 11:50 Gram Stain - Final Trachasp Sputum Culture - Preliminary Stenotrophomonas Maltophilia 08/24/18 19:15 Stool Culture - Final Stool NO SALMONELLA, SHIGELLA OR CAMPYLOBACTER ISOLATED. 08/22/18 16:14 Blood Culture - Preliminary Blood-Venous NO GROWTH AFTER 3 DAYS 08/22/18 15:50 Blood Culture - Preliminary Blood-Venous NO GROWTH AFTER 3 DAYS Lab Studies 08/26/18 08/26/18 08/26/18 Range/Units 09:15 09:00 05:15 WBC 17.3 H (4.8-10.8) K/uL RBC 2.43 L (3.80-5.20) Mil/uL Hgb 8.5 L (12.0-16.0) g/dL Hct 25.0 L (34.0-47.0) % MCV 102.8 H (81.0-99.0) fl MCH 34.9 H (27.0-31.0) pg MCHC 34.0 (33.0-37.0) g/dL RDW 18.3 H (11.5-14.5) % Plt Count 47 L (130-400) K/uL Retic Count 1.8 H (0.5-1.5) % PT 11.9 (9.8-13.1) Seconds INR 1.0 APTT 28.3 (25.6-37.1) Seconds Fibrinogen 725 H* (200-400) mg/dl pCO2 (35-45) mm/Hg pO2 (80-100) mm/Hg HCO3 (21-28) mmol/L ABG pH (7.35-7.45) ABG Total CO2 (22-28) mmol/L ABG O2 Saturation (95-98) % ABG O2 Content (15-23) ML/dL ABG Base Excess (-2.0-3.0) mmol/L ABG Hemoglobin (11.7-17.4) g/dL ABG Carboxyhemoglobin (0.5-1.5) % POC ABG HHb (Measured) (0.0-5.0) % ABG Methemoglobin (0.0-3.0) % ABG O2 Capacity (16-24) mL/dL Genaro Test A-a O2 Difference mm/Hg Hgb O2 Saturation (95.0-98.0) % Vent Mode Mechanical Rate FiO2 % Tidal Volume PEEP Sodium (132-148) mmol/l Potassium (3.6-5.0) MMOL/L Chloride (98-107) mmol/L Carbon Dioxide (22-30) mmol/L Anion Gap (10-20) BUN (7-17) mg/dl Creatinine (0.7-1.2) mg/dl Est GFR ( Amer) Est GFR (Non-Af Amer) Random Glucose (65-105) mg/dL Calcium (8.4-10.2) mg/dL Phosphorus 5.1 H (2.5-4.5) mg/dl Magnesium 1.7 (1.6-2.3) MG/DL Ferritin (11.1-264.0) ng/Ml Vitamin B12 (239-931) pg/mL PTH Intact Whole Molec (14-64) pg/mL C. difficile Ag & Toxin (NEGATIVE) 08/26/18 08/26/18 08/25/18 Range/Units 04:16 04:00 07:02 WBC (4.8-10.8) K/uL RBC (3.80-5.20) Mil/uL Hgb (12.0-16.0) g/dL Hct (34.0-47.0) % MCV (81.0-99.0) fl MCH (27.0-31.0) pg MCHC (33.0-37.0) g/dL RDW (11.5-14.5) % Plt Count (130-400) K/uL Retic Count (0.5-1.5) % PT (9.8-13.1) Seconds INR APTT (25.6-37.1) Seconds Fibrinogen (200-400) mg/dl pCO2 25 L (35-45) mm/Hg pO2 223 H (80-100) mm/Hg HCO3 20.2 L (21-28) mmol/L ABG pH 7.44 (7.35-7.45) ABG Total CO2 17.8 L (22-28) mmol/L ABG O2 Saturation 100.4 H (95-98) % ABG O2 Content 12.9 L (15-23) ML/dL ABG Base Excess -6.1 L (-2.0-3.0) mmol/L ABG Hemoglobin 9.0 L (11.7-17.4) g/dL ABG Carboxyhemoglobin 1.2 (0.5-1.5) % POC ABG HHb (Measured) -0.4 L (0.0-5.0) % ABG Methemoglobin 1.3 (0.0-3.0) % ABG O2 Capacity 12.8 L (16-24) mL/dL Genaro Test Yes A-a O2 Difference 174.0 mm/Hg Hgb O2 Saturation 97.9 (95.0-98.0) % Vent Mode A/c Mechanical Rate 12 FiO2 60.0 % Tidal Volume 450 PEEP 5 Sodium 141 (132-148) mmol/l Potassium 3.2 L (3.6-5.0) MMOL/L Chloride 108 H (98-107) mmol/L Carbon Dioxide 20 L (22-30) mmol/L Anion Gap 16 (10-20) BUN 94 H (7-17) mg/dl Creatinine 3.8 H (0.7-1.2) mg/dl Est GFR ( Amer) 14 Est GFR (Non-Af Amer) 12 Random Glucose 118 H (65-105) mg/dL Calcium 7.1 L (8.4-10.2) mg/dL Phosphorus (2.5-4.5) mg/dl Magnesium (1.6-2.3) MG/DL Ferritin 624.0 H (11.1-264.0) ng/Ml Vitamin B12 > 1000 H (239-931) pg/mL PTH Intact Whole Molec (14-64) pg/mL C. difficile Ag & Toxin Positive antigen (NEGATIVE) 08/24/18 Range/Units 10:15 WBC (4.8-10.8) K/uL RBC (3.80-5.20) Mil/uL Hgb (12.0-16.0) g/dL Hct (34.0-47.0) % MCV (81.0-99.0) fl MCH (27.0-31.0) pg MCHC (33.0-37.0) g/dL RDW (11.5-14.5) % Plt Count (130-400) K/uL Retic Count (0.5-1.5) % PT (9.8-13.1) Seconds INR APTT (25.6-37.1) Seconds Fibrinogen (200-400) mg/dl pCO2 (35-45) mm/Hg pO2 (80-100) mm/Hg HCO3 (21-28) mmol/L ABG pH (7.35-7.45) ABG Total CO2 (22-28) mmol/L ABG O2 Saturation (95-98) % ABG O2 Content (15-23) ML/dL ABG Base Excess (-2.0-3.0) mmol/L ABG Hemoglobin (11.7-17.4) g/dL ABG Carboxyhemoglobin (0.5-1.5) % POC ABG HHb (Measured) (0.0-5.0) % ABG Methemoglobin (0.0-3.0) % ABG O2 Capacity (16-24) mL/dL Genaro Test A-a O2 Difference mm/Hg Hgb O2 Saturation (95.0-98.0) % Vent Mode Mechanical Rate FiO2 % Tidal Volume PEEP Sodium (132-148) mmol/l Potassium (3.6-5.0) MMOL/L Chloride (98-107) mmol/L Carbon Dioxide (22-30) mmol/L Anion Gap (10-20) BUN (7-17) mg/dl Creatinine (0.7-1.2) mg/dl Est GFR ( Amer) Est GFR (Non-Af Amer) Random Glucose (65-105) mg/dL Calcium (8.4-10.2) mg/dL Phosphorus (2.5-4.5) mg/dl Magnesium (1.6-2.3) MG/DL Ferritin (11.1-264.0) ng/Ml Vitamin B12 (239-931) pg/mL PTH Intact Whole Molec 454 H (14-64) pg/mL C. difficile Ag & Toxin (NEGATIVE) Laboratory Results - last 24 hr 08/24/18 08/25/18 08/26/18 10:15 07:02 04:00 WBC RBC Hgb Hct MCV MCH MCHC RDW Plt Count Retic Count PT INR APTT Fibrinogen pCO2 pO2 HCO3 ABG pH ABG Total CO2 ABG O2 Saturation ABG O2 Content ABG Base Excess ABG Hemoglobin ABG Carboxyhemoglobin POC ABG HHb (Measured) ABG Methemoglobin ABG O2 Capacity Genaro Test A-a O2 Difference Hgb O2 Saturation Vent Mode Mechanical Rate FiO2 Tidal Volume PEEP Sodium 141 Potassium 3.2 L Chloride 108 H Carbon Dioxide 20 L Anion Gap 16 BUN 94 H Creatinine 3.8 H Est GFR ( Amer) 14 Est GFR (Non-Af Amer) 12 Random Glucose 118 H Calcium 7.1 L Phosphorus Magnesium Ferritin 624.0 H Vitamin B12 > 1000 H PTH Intact Whole Molec 454 H C. difficile Ag & Toxin Positive antigen 08/26/18 08/26/18 08/26/18 04:16 05:15 09:00 WBC 17.3 H RBC 2.43 L Hgb 8.5 L Hct 25.0 L MCV 102.8 H MCH 34.9 H MCHC 34.0 RDW 18.3 H Plt Count 47 L Retic Count 1.8 H PT INR APTT Fibrinogen pCO2 25 L pO2 223 H HCO3 20.2 L ABG pH 7.44 ABG Total CO2 17.8 L ABG O2 Saturation 100.4 H ABG O2 Content 12.9 L ABG Base Excess -6.1 L ABG Hemoglobin 9.0 L ABG Carboxyhemoglobin 1.2 POC ABG HHb (Measured) -0.4 L ABG Methemoglobin 1.3 ABG O2 Capacity 12.8 L Genaro Test Yes A-a O2 Difference 174.0 Hgb O2 Saturation 97.9 Vent Mode A/c Mechanical Rate 12 FiO2 60.0 Tidal Volume 450 PEEP 5 Sodium Potassium Chloride Carbon Dioxide Anion Gap BUN Creatinine Est GFR ( Amer) Est GFR (Non-Af Amer) Random Glucose Calcium Phosphorus 5.1 H Magnesium 1.7 Ferritin Vitamin B12 PTH Intact Whole Molec C. difficile Ag & Toxin 08/26/18 09:15 WBC RBC Hgb Hct MCV MCH MCHC RDW Plt Count Retic Count PT 11.9 INR 1.0 APTT 28.3 Fibrinogen 725 H* pCO2 pO2 HCO3 ABG pH ABG Total CO2 ABG O2 Saturation ABG O2 Content ABG Base Excess ABG Hemoglobin ABG Carboxyhemoglobin POC ABG HHb (Measured) ABG Methemoglobin ABG O2 Capacity Genaro Test A-a O2 Difference Hgb O2 Saturation Vent Mode Mechanical Rate FiO2 Tidal Volume PEEP Sodium Potassium Chloride Carbon Dioxide Anion Gap BUN Creatinine Est GFR ( Amer) Est GFR (Non-Af Amer) Random Glucose Calcium Phosphorus Magnesium Ferritin Vitamin B12 PTH Intact Whole Molec C. difficile Ag & Toxin Radiology Impressions: Radiology Impressions Renal Ultrasound 08/24/18 15:52 IMPRESSION: Unremarkable renal sonogram. Chest X-Ray 08/25/18 09:00 IMPRESSION: Suspect mild bibasilar atelectasis and small bilateral effusions right larger than left. Assessment/Plan (1) Acute renal failure Current Visit: Yes Status: Acute Priority: High Attending/Attestation - Attestation I have personally seen and examined this patient.: Yes I have fully participated in the care of the patient.: Yes I have reviewed all pertinent clinical information: Yes Notes (Text): 08/26/18 12:46 I have seen and examined the patient. Medical records, lab studies, and imaging were reviewed by me and a management plan was formulated on multidisciplinary rounds with resident Dr. Mejia. I agree with their above documented assessment and plan. Patient is not doing well clinically. She has a transaminitis from possible shock liver on top of chronic alcoholism. She is getting dialyzed again today. She is not waking up despite being off sedation for 3 days now, with multiple ischemic infarcts on Brain MRI. Her prognosis is very poor. Will have to discuss goals of care and advance directives with the family. Critical Care Time 35 minutes. Multi-disciplinary rounds were performed with house staff, nursing, speech therapy, respiratory therapy, pharmacy and nutrition with integrated input from the primary team/attending and other consulting services. The documented time is cumulative and includes review of patient data/exams/labs/chart review and examination of the patient on rounds and throughout the day; time is exclusive of any procedures or teaching time.
--- NOTE | 2018-08-26 11:32 | CP.PCM.PN ---
Subjective - Date & Time of Evaluation Date of Evaluation: 08/26/18 Time of Evaluation: 11:00 - Subjective Subjective: Vented Objective - Vital Signs/Intake and Output Vital Signs (last 24 hours): Temp Pulse Resp BP Pulse Ox 98 F 79 23 130/59 L 100 08/26/18 08:00 08/26/18 10:00 08/26/18 10:00 08/26/18 10:00 08/26/18 10:00 Intake and Output: 08/26/18 08/26/18 06:59 18:59 Intake Total 1665 735 Output Total 150 80 Balance 1515 655 - Medications Medications: Current Medications Acetaminophen (Tylenol 650 Mg Supp) 650 mg ID Q6 PRN PRN Reason: Fever >100.4 F Last Admin: 08/23/18 16:24 Dose: 650 mg Calcium Carbonate (Oscal) 500 mg PO TID [facility] Last Admin: 08/26/18 09:27 Dose: 500 mg Dimethicone (Proshield Plus Skin Protectant) 1 applic TOP Q8 [facility] Last Admin: 08/26/18 09:28 Dose: 1 applic Ergocalciferol (Drisdol 50,000 Intl Units Cap) 1 cap PO Q7D [facility] Last Admin: 08/25/18 12:04 Dose: 1 cap Folic Acid (Folic Acid) 1 mg PO DAILY [facility] Last Admin: 08/26/18 09:26 Dose: 1 mg Heparin Sodium (Porcine) (Heparin) 5,000 units SC Q12 [facility]; Protocol Last Admin: 08/24/18 21:00 Dose: 5,000 units Piperacillin Sod/Tazobactam (Sod 2.25 gm/ Sodium Chloride) 100 mls @ 100 mls/hr IVPB Q8 [facility]; Protocol Last Admin: 08/26/18 09:29 Dose: 100 mls/hr Metronidazole (Flagyl 500mg/100ml Ns) 100 mls @ 100 mls/hr IVPB Q8H [facility]; Protocol Last Admin: 08/26/18 10:06 Dose: 100 mls/hr Levetiracetam 500 mg/ Sodium (Chloride) 105 mls @ 210 mls/hr IVPB Q12 [facility] Last Admin: 08/26/18 09:26 Dose: 210 mls/hr Potassium Chloride/Sodium Chloride (Potassium Chl 20 Meq In Ns) 1,000 mls @ 125 mls/hr IV .Q8H [facility] Stop: 08/27/18 06:47 Last Admin: 08/26/18 09:27 Dose: 125 mls/hr Pantoprazole Sodium (Protonix Inj) 40 mg IVP DAILY [facility] Last Admin: 08/26/18 09:29 Dose: 40 mg Thiamine HCl (Vitamin B1 Inj) 100 mg IM DAILY [facility] Last Admin: 08/26/18 09:29 Dose: 100 mg Vitamin B Complex/Vit C/Folic Acid (Nephro-Jannet) 1 tab PO DAILY [facility] Last Admin: 08/26/18 09:27 Dose: 1 tab - Labs Labs: 08/26/18 05:15 08/26/18 04:00 PT 11.9 Seconds (9.8-13.1) 08/26/18 09:15 INR 1.0 08/26/18 09:15 APTT 28.3 Seconds (25.6-37.1) 08/26/18 09:15 - Head Exam Head Exam: ATRAUMATIC - Eye Exam Eye Exam: Normal appearance - ENT Exam ENT Exam: Mucous Membranes Dry - Respiratory Exam Respiratory Exam: Decreased Breath Sounds - Cardiovascular Exam Cardiovascular Exam: +S1, +S2 - GI/Abdominal Exam GI & Abdominal Exam: Normal Bowel Sounds Assessment and Plan (1) Thrombocytopenia Assessment & Plan: likely sepsis related no current DIC; trend fibrinogen transfuse plt if < 20,000 Status: Acute (2) Coagulopathy Assessment & Plan: no current DIC likely nutritional ? liver disease from alcohol vit K and FFP PRN Status: Acute (3) Anemia Assessment & Plan: anemia of chronic disease transfusion support PRN Status: Acute (4) Leukocytosis Assessment & Plan: on antibiotics Status: Acute (5) History of head and neck cancer Assessment & Plan: s/p surgery with ? recurrence in 2009 can evaluate once clinical status improved Status: Acute
--- NOTE | 2018-08-26 12:00 | PCM.PPROG ---
History of Present Illness - History of Present Illness History of Present Illness: Patient is a 83 year old female who came to the ER on 08/22/18 with EMS. Maintenence workers found her in her apartment covered in feces. In the ER she also complained of SOB and abdominal pain. She was not able to provide a good history. She was admitted to ICU for Acute renal failure, respiratory failure , alcohol withdrawal, AMS. She is currently intubated on vent in ICU. PMH: Anxiety, arthritis, bipolar disorder, colonic polyps, COPD, Dementia, Depression, Fractures, HTN, Hypercholesterolemia, Squamous cell carcinoma of the mouth/neck, osteoporosis, PTSD, Schizophrenia Soc hx: Former smoker, ETOH user, Lives alone Fam hx: Unknown 08/22 CXR no interval pathology noted 08/[address]: No intracranial mass, hemmorhage, or evidence of acute infarct 08/23 MRI brain: Bilateral cerebral hemispheric Infarcts Review of Systems - Review of Systems Systems not reviewed;Unavailable: Acuity of Condition, Intubated Physical Exam - Constitutional Appears: Cachectic, Chronically Ill - Head Exam Head Exam: ATRAUMATIC, NORMAL INSPECTION, NORMOCEPHALIC - Eye Exam Eye Exam: PERRL - ENT Exam ENT Exam: Mucous Membranes Moist - Respiratory Exam Additional comments: intubated on mechanical ventilation - Cardiovascular Exam Cardiovascular Exam: REGULAR RHYTHM - Neurological Exam Additional comments: not alert, does not follow commands, - Skin Skin Exam: Dry, Pallor Additional comments: mottling on BLE, multiple areas of ecchymosis on BUE Palliative Care Assessment - Modified MRC Dyspnea Scale Modified MRC Dyspnea Scale: Too breathless to leave the house,or breathless dressing or undressing Grade: 5 - Rodriguez Scale Sensory Perception: Completely Limited Moisture: Very Moist Activity: Bedfast Mobility: Completely Immobile Nutrition: Adequate Friction & Shear: Problem Total Score - Skin Risk Assessment: 9 Palliative Care - Goals Goal(s) of care: Goals of Care: Discussion held with patients 2 daughters and brother yesterday. They wanted 1-2 days to decide treatment goals. The severity of the patient's condition was discussed and they verbalized understanding. Both daughters stated that in prior conversations with their mother, she expressed not want to be kept alive on life support. Daughter Ruth Andrews is NOK Code Status: FULL CODE at this time, as per yesterday's discussion, family would like 1-2 days to think about code status. End of life care discussed: Yes End of life discussion: End of life discussions held with patient's daughter Louis, and patient's brother. Assessment & Plan - Assessment and Plan (Free Text) Assessment: Impression Acute Respiratory Failure Acute Renal Failure Suggestion Will follow up on Goals of Care and End of life decisions with family Palliative Care will remain on board as needed Time Spent with patient 45 min
--- NOTE | 2018-08-26 12:00 | CP.PCM.PN ---
Subjective - Date & Time of Evaluation Date of Evaluation: 08/26/18 Time of Evaluation: 11:58 - Subjective Subjective: Nephrology Consultation Note Assessment: critical Acute Kidney Injury (N17.9) likely due to ATN started HD 08/23/18 sepssi with shock, Colitis, thrombocytopenia acute CVA HAGMA, hyperkalemia, hypocalcemia hyperphos Dementia, COPD, ETOH abuse, Depression/Schizophrenias, Squamous cell carcinoma of mouth/neck, TIA rhabdomyolysis vit d def anemia Plan Will plan for HD today (3rd session). epogen with HD 10,000 units Hypertension control with meds as ordered. Maintain hemodynamics stable. Avoid hypotension. Patient not on ACEI/ARB due to recent LESLIE Monitor Input/Output, daily weights and renal function with basic metabolic panel supplement lytes as needed continue with weekly Vit D supplement. nephrovite daily Dose meds/antibiotics for reduced GFR. Avoid fleets enema/magnesium based laxatives. Avoid nephrotoxins/NSAIDs/ iodinated contrast (unless needed emergently) Glycemic control. overall prognosis poor Further work up for as per primary team Thanks for allowing me to participate in care of your patient. Will follow lacho ent with you. Please call if any Qs. had d/w team Dr Js Ray Office: [phone] Subjective: Noted events overnight. Patients unresponsive. unable to obtain ROS Physical Examination: General Appearance: in no acute respiratory distress, ill appearing. orally intubated Vitals reviewed and noted as below ENT: orally intubated Neck; supple no lymphadenopathy, no thyromegaly or bruit Lungs: Normal respiratory rate/effort. Breath sounds bilateral equal and clear anteriorly Heart: Normal rate. s1s2 normal. No rub or gallop. Extremities: 1+ edema. No varicose veins Neurological: Patient is unresponsive Skin: Warm and dry. Normal turgor. No rash. Palpitation: Normal elasticity for age Abdomen: Abdomen is soft. Bowel sounds +. There is no abdominal tenderness, no guarding/rigidity no organomegaly Psych: unable MSK: echymoses over knee +. toes necrosis + : kidney or bladder not palpable. has wynne access: rt KIKE martinez Labs/imaging reviewed. Past medical history, past surgical history, family history, social history, allergy reviewed and noted as below Family hx: no hx of CKD. Rest non-contributory Objective - Vital Signs/Intake and Output Vital Signs (last 24 hours): Temp Pulse Resp BP Pulse Ox 98 F 79 23 130/59 L 100 08/26/18 08:00 08/26/18 10:00 08/26/18 10:00 08/26/18 10:00 08/26/18 10:00 Intake and Output: 08/26/18 08/26/18 06:59 18:59 Intake Total 1665 1125 Output Total 150 140 Balance 1515 985 - Medications Medications: Current Medications Acetaminophen (Tylenol 650 Mg Supp) 650 mg HI Q6 PRN PRN Reason: Fever >100.4 F Last Admin: 08/23/18 16:24 Dose: 650 mg Calcium Carbonate (Oscal) 500 mg PO TID [facility] Last Admin: 08/26/18 09:27 Dose: 500 mg Dimethicone (Proshield Plus Skin Protectant) 1 applic TOP Q8 [facility] Last Admin: 08/26/18 09:28 Dose: 1 applic Ergocalciferol (Drisdol 50,000 Intl Units Cap) 1 cap PO Q7D [facility] Last Admin: 08/25/18 12:04 Dose: 1 cap Folic Acid (Folic Acid) 1 mg PO DAILY [facility] Last Admin: 08/26/18 09:26 Dose: 1 mg Heparin Sodium (Porcine) (Heparin) 5,000 units SC Q12 [facility]; Protocol Last Admin: 08/24/18 21:00 Dose: 5,000 units Piperacillin Sod/Tazobactam (Sod 2.25 gm/ Sodium Chloride) 100 mls @ 100 mls/hr IVPB Q8 [facility]; Protocol Last Admin: 08/26/18 09:29 Dose: 100 mls/hr Metronidazole (Flagyl 500mg/100ml Ns) 100 mls @ 100 mls/hr IVPB Q8H [facility]; Protocol Last Admin: 08/26/18 10:06 Dose: 100 mls/hr Levetiracetam 500 mg/ Sodium (Chloride) 105 mls @ 210 mls/hr IVPB Q12 [facility] Last Admin: 08/26/18 09:26 Dose: 210 mls/hr Potassium Chloride/Sodium Chloride (Potassium Chl 20 Meq In Ns) 1,000 mls @ 125 mls/hr IV .Q8H [facility] Stop: 08/27/18 06:47 Last Admin: 08/26/18 09:27 Dose: 125 mls/hr Pantoprazole Sodium (Protonix Inj) 40 mg IVP DAILY [facility] Last Admin: 08/26/18 09:29 Dose: 40 mg Thiamine HCl (Vitamin B1 Inj) 100 mg IM DAILY [facility] Last Admin: 08/26/18 09:29 Dose: 100 mg Vitamin B Complex/Vit C/Folic Acid (Nephro-Jannet) 1 tab PO DAILY [facility] Last Admin: 08/26/18 09:27 Dose: 1 tab - Labs Labs: 08/26/18 05:15 08/26/18 04:00 PT 11.9 Seconds (9.8-13.1) 08/26/18 09:15 INR 1.0 08/26/18 09:15 APTT 28.3 Seconds (25.6-37.1) 08/26/18 09:15
--- NOTE | 2018-08-26 13:04 | CP.PCM.PN ---
Subjective - Date & Time of Evaluation Date of Evaluation: 08/26/18 Time of Evaluation: 12:20 - Subjective Subjective: F/U Acute Respiratory Failure Intubated, no response, comatose. Objective - Vital Signs/Intake and Output Vital Signs (last 24 hours): Temp Pulse Resp BP Pulse Ox 99.8 F H 82 26 H 126/54 L 100 08/26/18 12:00 08/26/18 12:00 08/26/18 12:00 08/26/18 12:00 08/26/18 12:00 Intake and Output: 08/26/18 08/26/18 06:59 18:59 Intake Total 1665 1125 Output Total 150 140 Balance 1515 985 - Medications Medications: Current Medications Acetaminophen (Tylenol 650 Mg Supp) 650 mg SD Q6 PRN PRN Reason: Fever >100.4 F Last Admin: 08/23/18 16:24 Dose: 650 mg Calcium Carbonate (Oscal) 500 mg PO TID [facility] Last Admin: 08/26/18 12:00 Dose: 500 mg Dimethicone (Proshield Plus Skin Protectant) 1 applic TOP Q8 [facility] Last Admin: 08/26/18 09:28 Dose: 1 applic Ergocalciferol (Drisdol 50,000 Intl Units Cap) 1 cap PO Q7D [facility] Last Admin: 08/25/18 12:04 Dose: 1 cap Folic Acid (Folic Acid) 1 mg PO DAILY [facility] Last Admin: 08/26/18 09:26 Dose: 1 mg Heparin Sodium (Porcine) (Heparin) 5,000 units SC Q12 [facility]; Protocol Last Admin: 08/24/18 21:00 Dose: 5,000 units Piperacillin Sod/Tazobactam (Sod 2.25 gm/ Sodium Chloride) 100 mls @ 100 mls/hr IVPB Q8 [facility]; Protocol Last Admin: 08/26/18 09:29 Dose: 100 mls/hr Metronidazole (Flagyl 500mg/100ml Ns) 100 mls @ 100 mls/hr IVPB Q8H [facility]; Protocol Last Admin: 08/26/18 10:06 Dose: 100 mls/hr Levetiracetam 500 mg/ Sodium (Chloride) 105 mls @ 210 mls/hr IVPB Q12 [facility] Last Admin: 08/26/18 09:26 Dose: 210 mls/hr Potassium Chloride/Sodium Chloride (Potassium Chl 20 Meq In Ns) 1,000 mls @ 125 mls/hr IV .Q8H [facility] Stop: 08/27/18 06:47 Last Admin: 08/26/18 09:27 Dose: 125 mls/hr Pantoprazole Sodium (Protonix Inj) 40 mg IVP DAILY [facility] Last Admin: 08/26/18 09:29 Dose: 40 mg Thiamine HCl (Vitamin B1 Inj) 100 mg IM DAILY [facility] Last Admin: 08/26/18 09:29 Dose: 100 mg Vitamin B Complex/Vit C/Folic Acid (Nephro-Jannet) 1 tab PO DAILY [facility] Last Admin: 08/26/18 09:27 Dose: 1 tab - Labs Labs: 08/26/18 05:15 08/26/18 04:00 PT 11.9 Seconds (9.8-13.1) 08/26/18 09:15 INR 1.0 08/26/18 09:15 APTT 28.3 Seconds (25.6-37.1) 08/26/18 09:15 - Constitutional Appears: Chronically Ill - Head Exam Head Exam: NORMAL INSPECTION - Eye Exam Additional comments: does not open eyes spontaneously. Pupils reactive - ENT Exam Additional comments: Intubated. OGT - Neck Exam Neck Exam: Normal Inspection - Respiratory Exam Respiratory Exam: Decreased Breath Sounds (b/l), Rhonchi (b/l, scattered) - Cardiovascular Exam Cardiovascular Exam: REGULAR RHYTHM - GI/Abdominal Exam GI & Abdominal Exam: Soft. absent: Distended - Exam Additional comments: Segal - Extremities Exam Extremities Exam: Pedal Edema (B/L, extending to above knees.) Additional comments: Ecchymosis on extremities, mottled BLE, pelvis and thighs edema. - Neurological Exam Additional comments: Intubated, comatose, does not follows commands, no response to verbal or tactile stimuli. - Skin Additional comments: Mottled BLE Assessment and Plan (1) Acute respiratory failure Status: Acute (2) Septic shock Status: Acute (3) Altered mental status Status: Acute (4) Acute renal failure Status: Acute (5) Metabolic acidosis Status: Acute (6) Colitis Status: Acute (7) Transaminitis Status: Acute (8) Rhabdomyolysis Status: Acute (9) DMII (diabetes mellitus, type 2) Status: Chronic (10) Hypernatremia Status: Resolved (11) COPD (chronic obstructive pulmonary disease) Status: Deleted (12) Dementia Status: Chronic (13) History of alcohol abuse Status: Chronic - Assessment and Plan (Free Text) Plan: Continue ventilatory support, Zosyn, Flagyl, Folic Acid, Potassium Chl, Levetiracetan, Proshield Plus and rest of tx. Pt continue full code at this time, yesterday, family asked for 1-2 days to take a decision about code status.
--- NOTE | 2018-08-26 13:20 | CP.PCM.PN ---
Subjective - Date & Time of Evaluation Date of Evaluation: 08/26/18 Time of Evaluation: 13:18 - Subjective Subjective: Neuro Follow-Up Note: Mrs. Andrews was evaluated this afternoon in the ICU. Gnosticist member visiting today but no family present at bedside during exam. Pt remains intubated, on mech vent, no sedation. She does not follow commands. She does not respond to painful stimuli, though when her legs or feet are touched she moves them, karen lar to yesterday. Chart reviewed, discussed with primary RN and ICU resident. ROS unobtainable from the pt 2/2 her current status. Objective - Vital Signs/Intake and Output Vital Signs (last 24 hours): Temp Pulse Resp BP Pulse Ox 99.8 F H 82 26 H 126/54 L 100 08/26/18 12:00 08/26/18 12:00 08/26/18 12:00 08/26/18 12:00 08/26/18 12:00 Intake and Output: 08/26/18 08/26/18 06:59 18:59 Intake Total 1665 1125 Output Total 150 140 Balance 1515 985 - Medications Medications: Current Medications Acetaminophen (Tylenol 650 Mg Supp) 650 mg ME Q6 PRN PRN Reason: Fever >100.4 F Last Admin: 08/23/18 16:24 Dose: 650 mg Calcium Carbonate (Oscal) 500 mg PO TID [facility] Last Admin: 08/26/18 12:00 Dose: 500 mg Dimethicone (Proshield Plus Skin Protectant) 1 applic TOP Q8 [facility] Last Admin: 08/26/18 09:28 Dose: 1 applic Ergocalciferol (Drisdol 50,000 Intl Units Cap) 1 cap PO Q7D [facility] Last Admin: 08/25/18 12:04 Dose: 1 cap Folic Acid (Folic Acid) 1 mg PO DAILY [facility] Last Admin: 08/26/18 09:26 Dose: 1 mg Heparin Sodium (Porcine) (Heparin) 5,000 units SC Q12 [facility]; Protocol Last Admin: 08/24/18 21:00 Dose: 5,000 units Piperacillin Sod/Tazobactam (Sod 2.25 gm/ Sodium Chloride) 100 mls @ 100 mls/hr IVPB Q8 [facility]; Protocol Last Admin: 08/26/18 09:29 Dose: 100 mls/hr Metronidazole (Flagyl 500mg/100ml Ns) 100 mls @ 100 mls/hr IVPB Q8H [facility]; Protocol Last Admin: 08/26/18 10:06 Dose: 100 mls/hr Levetiracetam 500 mg/ Sodium (Chloride) 105 mls @ 210 mls/hr IVPB Q12 [facility] Last Admin: 08/26/18 09:26 Dose: 210 mls/hr Potassium Chloride/Sodium Chloride (Potassium Chl 20 Meq In Ns) 1,000 mls @ 125 mls/hr IV .Q8H [facility] Stop: 08/27/18 06:47 Last Admin: 08/26/18 09:27 Dose: 125 mls/hr Pantoprazole Sodium (Protonix Inj) 40 mg IVP DAILY [facility] Last Admin: 08/26/18 09:29 Dose: 40 mg Thiamine HCl (Vitamin B1 Inj) 100 mg IM DAILY [facility] Last Admin: 08/26/18 09:29 Dose: 100 mg Vitamin B Complex/Vit C/Folic Acid (Nephro-Jannet) 1 tab PO DAILY [facility] Last Admin: 08/26/18 09:27 Dose: 1 tab - Labs Labs: 08/26/18 05:15 08/26/18 04:00 PT 11.9 Seconds (9.8-13.1) 08/26/18 09:15 INR 1.0 08/26/18 09:15 APTT 28.3 Seconds (25.6-37.1) 08/26/18 09:15 - Constitutional Appears: Other (intubated, on mech vent, no sedation, does not follow commands, moves legs/feet when touched) - Head Exam Head Exam: ATRAUMATIC, NORMAL INSPECTION, NORMOCEPHALIC - Eye Exam Eye Exam: PERRL. absent: Nystagmus Pupil Exam: NORMAL ACCOMODATION, PERRL Additional comments: Pupils are both reactive, approx 2 mm b/l. No nystagmus or rolling eye movement noted today No corneals; no dolls eyes - ENT Exam ENT Exam: Mucous Membranes Moist Additional comments: intubated; OGT - Neck Exam Neck Exam: Normal Inspection - Respiratory Exam Respiratory Exam: absent: NORMAL BREATHING PATTERN (intubated on mech vent) - Cardiovascular Exam Cardiovascular Exam: REGULAR RHYTHM. absent: Tachycardia - GI/Abdominal Exam GI & Abdominal Exam: Soft. absent: Distended Additional comments: OGT - Exam Additional comments: wynne - Extremities Exam Additional comments: No response or extremity movement to painful stimuli, though pt does move her legs when legs/feet are touched. BUE flaccid Increased edema noted today to BLE - Neurological Exam Neurological Exam: Altered Additional comments: Pt remains intubated, on mech vent, off sedation; does not follow commands Pupils are both reactive, approx 2 mm b/l. No nystagmus or rolling eye movement noted today; does not open eyes spontaneously. No corneals; no dolls eyes + Gag reflex No purposeful response or extremity movement to painful stimuli, though pt does move her legs when legs/feet are touched. BUE flaccid Reflexes difficult to elicit today 2/2 pedal edema extending to just above the knees. + Babinski b/l No tremors or myoclonic movements. - Psychiatric Exam Additional comments: Intubated, on mech vent; does not follow commands - Skin Additional comments: Mottled BLE with edema Assessment and Plan (1) Anoxic encephalopathy Assessment & Plan: Imaging reviewed: -EEG (08/25/18): Impression: This was an abnormal video EEG, monitoring study, due to the presence of: 1-Severe background slowing/attenuation . 2-Left hemispheric slowing and rare sharps. No seizures not in status epilepticus. INTERPRETATION: The above mentioned findings are in keeping with a severe non specific diffuse disturbance of cortical activity. This is in keeping with a diffuse ibanez matter dysfunction. The findings do not suggest a specific etiology. -Brain MRI (08/24/18): 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 Cortical edema and swelling can also be seen on the FLAIR and T2 images. There is no hemorrhage. This pattern of infarction in multiple vascular distributions is most consistent with a hypotensive event. -CT Head (08/22/18): No intracranial mass, hemorrhage or evidence of acute infarct. Mild age-appropriate involutional change. No change from prior examination. -Palliative care on board; note reviewed. Pending family decision regarding goals of care. -Heme/onc consulted for thrombocytopenia. -ASA and Plavix still on hold 2/2 Stool OB positive and pt has thrombocytopenia. -Statins on hold 2/2 elevated LFTs. -Continue Keppra 500 mg IV Q12 for abnormalities seen on the EEG as well as the multiple b/l infarcts seen on the MRI. -Discussed plan with ICU resident and primary RN. Magda Hedrick, [place], [employer]IES OPERATOR d/w Dr. Medley Status: Acute
--- NOTE | 2018-08-26 14:21 | RAD ---
Date of service: 08/26/2018 HISTORY: Intubated COMPARISON: Comparison made with prior chest radiograph dated 08/25/2018. TECHNIQUE: 1 view obtained. FINDINGS: In situ endotracheal tube tip of which lies approximately 18 mm above jac. In situ NGT is also present, the, distal aspect and tip of which is poorly delineated on this exam. There is a dual lumen right IJ central line with tip in the SVC. LUNGS: Mild bibasilar atelectasis with suspected small bilateral effusions right larger than left PLEURA: No significant pleural effusion identified, no pneumothorax apparent. CARDIOVASCULAR: Mild cardiomegaly. Aortic atherosclerotic calcification present. OSSEOUS STRUCTURES: No significant abnormalities. VISUALIZED UPPER ABDOMEN: Normal. OTHER FINDINGS: None. IMPRESSION: Support lines and tubes as above. Mild bibasilar atelectasis and suspected small bilateral effusions right larger than left Mild cardiomegaly.
--- NOTE | 2018-08-26 15:33 | CP.PCM.PN ---
Subjective - Date & Time of Evaluation Date of Evaluation: 08/26/18 Time of Evaluation: 09:00 - Subjective Subjective: Patient's BP has stabilized. Being started on hemodialysis. Objective - Vital Signs/Intake and Output Vital Signs (last 24 hours): Temp Pulse Resp BP Pulse Ox 99.8 F H 83 22 111/54 L 100 08/26/18 12:00 08/26/18 14:00 08/26/18 14:00 08/26/18 14:00 08/26/18 14:00 Intake and Output: 08/26/18 08/26/18 06:59 18:59 Intake Total 1665 1415 Output Total 150 240 Balance 1515 1175 - Medications Medications: Current Medications Acetaminophen (Tylenol 650 Mg Supp) 650 mg [place] Q6 PRN PRN Reason: Fever >100.4 F Last Admin: 08/23/18 16:24 Dose: 650 mg Calcium Carbonate (Oscal) 500 mg PO TID [facility] Last Admin: 08/26/18 12:00 Dose: 500 mg Dimethicone (Proshield Plus Skin Protectant) 1 applic TOP Q8 BHUPENDRA Last Admin: 08/26/18 09:28 Dose: 1 applic Ergocalciferol (Drisdol 50,000 Intl Units Cap) 1 cap PO Q7D BHUPENDRA Last Admin: 08/25/18 12:04 Dose: 1 cap Folic Acid (Folic Acid) 1 mg PO DAILY [facility] Last Admin: 08/26/18 09:26 Dose: 1 mg Heparin Sodium (Porcine) (Heparin) 5,000 units SC Q12 BHUPENDRA; Protocol Last Admin: 08/24/18 21:00 Dose: 5,000 units Piperacillin Sod/Tazobactam (Sod 2.25 gm/ Sodium Chloride) 100 mls @ 100 mls/hr IVPB Q8 BHUPENDRA; Protocol Last Admin: 08/26/18 09:29 Dose: 100 mls/hr Metronidazole (Flagyl 500mg/100ml Ns) 100 mls @ 100 mls/hr IVPB Q8H BHUPENDRA; Protocol Last Admin: 08/26/18 10:06 Dose: 100 mls/hr Levetiracetam 500 mg/ Sodium (Chloride) 105 mls @ 210 mls/hr IVPB Q12 [facility]UPENDRA Last Admin: 08/26/18 09:26 Dose: 210 mls/hr Potassium Chloride/Sodium Chloride (Potassium Chl 20 Meq In Ns) 1,000 mls @ 125 mls/hr IV .Q8H [facility] Stop: 08/27/18 06:47 Last Admin: 08/26/18 09:27 Dose: 125 mls/hr Pantoprazole Sodium (Protonix Inj) 40 mg IVP DAILY [facility]UPENDRA Last Admin: 08/26/18 09:29 Dose: 40 mg Thiamine HCl (Vitamin B1 Inj) 100 mg IM DAILY [facility] Last Admin: 08/26/18 09:29 Dose: 100 mg Vitamin B Complex/Vit C/Folic Acid (Nephro-Jannet) 1 tab PO DAILY [facility]UPENDRA Last Admin: 08/26/18 09:27 Dose: 1 tab - Labs Labs: 08/26/18 05:15 08/26/18 04:00 PT 11.9 Seconds (9.8-13.1) 08/26/18 09:15 INR 1.0 08/26/18 09:15 APTT 28.3 Seconds (25.6-37.1) 08/26/18 09:15 - Head Exam Head Exam: ATRAUMATIC - Eye Exam Eye Exam: Normal appearance Pupil Exam: PERRL - ENT Exam ENT Exam: Mucous Membranes Moist - Neck Exam Neck Exam: Full ROM - Respiratory Exam Respiratory Exam: NORMAL BREATHING PATTERN - Cardiovascular Exam Cardiovascular Exam: REGULAR RHYTHM, +S1, +S2 - GI/Abdominal Exam GI & Abdominal Exam: Soft, Normal Bowel Sounds Assessment and Plan (1) Colitis Assessment & Plan: Likely due to ischemic event prior to admission. Abdominal exam fairly benign. NG feedings initiated at slow rate. Continue current supportive treatment. Status: Acute
[2018-08-26 18:42] LABS: FOLATE > 20.0 ng/mL
[2018-08-27] MEDS: Proshield Plus GEL TOP SCH ×3 (00:34→16:19)
[2018-08-27] MEDS: metroNIDAZOLE 500mg/100ml NS 100 ML IVPB SCH ×3 (03:05→18:13)
[2018-08-27] MEDS: Potassium Chl 20 mEq in NS 1,000 ML IV SCH (03:26)
[2018-08-27 05:53] LABS: HEMOGLOBIN 8.4 g/dL (12.0-16.0); MEAN CELL VOLUME 102.1 fl (81.0-99.0); MEAN CORPUSCULAR HEMOGLOBIN 34.1 pg (27.0-31.0); MEAN CORPUSCULAR HGB CONC 33.4 g/dL (33.0-37.0); RBC 2.46 Mil/uL (3.80-5.20); RED CELL DISTRIBUTION WIDTH 18.4 % (11.5-14.5); WHITE BLOOD COUNT 13.4 K/uL (4.8-10.8)
[2018-08-27 05:57] LABS: CALCIUM 6.8 mg/dL (8.4-10.2)
[2018-08-27 06:04] LABS: ABG ALLEN TEST YES; ARTERIAL BLOOD GAS HCO3 21.5 mmol/L (21-28); ARTERIAL BLOOD GAS HEMOGLOBIN 8.7 g/dL (11.7-17.4); ARTERIAL BLOOD GAS O2 CAPACITY 12.3 mL/dL (16-24); ARTERIAL BLOOD GAS O2 CONTENT 12.3 ML/dL (15-23); ARTERIAL BLOOD GAS O2 SAT 100.2 % (95-98); ARTERIAL BLOOD GAS PCO2 28 mm/Hg (35-45); ARTERIAL BLOOD GAS PH 7.44 (7.35-7.45); ARTERIAL BLOOD GAS PO2 155 mm/Hg (80-100); ARTERIAL BLOOD GAS TCO2 19.9 mmol/L (22-28)
[2018-08-27] MEDS: Multivitamin Vitamin B Complex (Nephro-Vite) Tab PO SCH (08:19)
[2018-08-27] MEDS: levETIRAcetam 500 MG in Sodium Chloride 0.9% 100 ML IVPB SCH ×2 (08:19→21:01)
[2018-08-27] MEDS: Thiamine 100 mg/ml Inj IM SCH (08:20)
--- NOTE | 2018-08-27 08:25 | RAD ---
Date of service: 08/27/2018 HISTORY: intubated COMPARISON: Portable chest 08/26/2018. TECHNIQUE: 1 view obtained. FINDINGS: LUNGS: Endotracheal and nasogastric tubes are not significantly changed in position as well as right central venous dialysis catheter. No active pulmonary disease. PLEURA: No significant pleural effusion identified, no pneumothorax apparent. CARDIOVASCULAR: Calcific atherosclerotic changes are seen related to the thoracic aorta. Normal cardiac size. No pulmonary vascular congestion. OSSEOUS STRUCTURES: No significant abnormalities. VISUALIZED UPPER ABDOMEN: Normal. OTHER FINDINGS: None. IMPRESSION: No interval acute cardiopulmonary disease appreciable with stable positioning of tubes and catheter as discussed above.
--- NOTE | 2018-08-27 09:44 | CP.PCM.CON ---
History of Present Illness - History of Present Illness History of Present Illness: Intubated, unresponsive Past Patient History - Infectious Disease Hx of Infectious Diseases: None - Tetanus Immunizations Tetanus Immunization: Unknown - Past Medical History & Family History Past Medical History?: Yes - Past Social History Smoking Status: Former Smoker Alcohol: Other (Hx ETOH abuse) Home Situation {Lives}: Alone - CARDIAC Hx Cardiac Disorders: Yes Hx Congestive Heart Failure: No Hx Hypercholesterolemia: Yes Hx Hypertension: Yes - PULMONARY Hx Respiratory Disorders: Yes Hx Bronchitis: Yes Hx Chronic Obstructive Pulmonary Disease (COPD): Yes Hx Pneumonia: Yes - NEUROLOGICAL Hx Neurological Disorder: Yes Hx Dementia: Yes Hx Seizures: No Hx Transient Ischemic Attacks (TIA): No - HEENT Hx HEENT Problems: Yes Hx Cataracts: Yes - RENAL Hx Chronic Kidney Disease: No - ENDOCRINE/METABOLIC Hx Endocrine Disorders: No Hx Hypothyroidism: No - HEMATOLOGICAL/ONCOLOGICAL Hx Blood Disorders: No Hx Human Immunodeficiency Virus (HIV): No - INTEGUMENTARY Hx Dermatological Problems: Yes Hx Squamous Cell: Yes (No Chemo treatment; surgery 10 yrs ago at [place]) - MUSCULOSKELETAL/RHEUMATOLOGICAL Hx Musculoskeletal Disorders: Yes Hx Arthritis: Yes Hx Falls: Yes Hx Fractures: Yes (right wrist fracture, rib fx) Hx Osteoporosis: Yes Hx Rheumatoid Arthritis: No - GASTROINTESTINAL Hx Gastrointestinal Disorders: No - GENITOURINARY/GYNECOLOGICAL Hx Genitourinary Disorders: No Hx Sexually Transmitted Disorders: No - PSYCHIATRIC Hx Psychophysiologic Disorder: Yes Hx Anxiety: Yes Hx Bipolar Disorder: Yes Hx Depression: Yes Hx Post Traumatic Stress Disorder: Yes Hx Schizophrenia: Yes Hx Substance Use: No - SURGICAL HISTORY Hx Surgeries: Yes Hx Hysterectomy: Yes (Partial) Other/Comment: mouth and neck CA SX - ANESTHESIA Hx Anesthesia: Yes Hx Anesthesia Reactions: No Hx Malignant Hyperthermia: No Meds Allergies/Adverse Reactions: Allergies Allergy/AdvReac Type Severity Reaction Status Date / Time No Known Allergies Allergy Verified 08/22/18 14:40 - Medications Medications: Current Medications Acetaminophen (Tylenol 650 Mg Supp) 650 mg [place] Q6 PRN PRN Reason: Fever >100.4 F Last Admin: 08/23/18 16:24 Dose: 650 mg Calcium Carbonate (Oscal) 500 mg PO TID [facility] Last Admin: 08/27/18 08:20 Dose: 500 mg Dimethicone (Proshield Plus Skin Protectant) 1 applic TOP Q8 [facility] Last Admin: 08/27/18 08:20 Dose: 1 applic Ergocalciferol (Drisdol 50,000 Intl Units Cap) 1 cap PO Q7D [facility] Last Admin: 08/25/18 12:04 Dose: 1 cap Folic Acid (Folic Acid) 1 mg PO DAILY [facility] Last Admin: 08/27/18 08:18 Dose: 1 mg Heparin Sodium (Porcine) (Heparin) 5,000 units SC Q12 [facility]UPENDRA; Protocol Last Admin: 08/24/18 21:00 Dose: 5,000 units Piperacillin Sod/Tazobactam (Sod 2.25 gm/ Sodium Chloride) 100 mls @ 100 mls/hr IVPB Q8 BHUPENDRA; Protocol Last Admin: 08/27/18 08:16 Dose: 100 mls/hr Metronidazole (Flagyl 500mg/100ml Ns) 100 mls @ 100 mls/hr IVPB Q8H [facility]UPENDRA; Protocol Last Admin: 08/27/18 03:05 Dose: 100 mls/hr Levetiracetam 500 mg/ Sodium (Chloride) 105 mls @ 210 mls/hr IVPB Q12 [facility]UPENDR[facility] Last Admin: 08/27/18 08:19 Dose: 210 mls/hr Pantoprazole Sodium (Protonix Inj) 40 mg IVP DAILY [facility] Last Admin: 08/27/18 08:20 Dose: 40 mg Thiamine HCl (Vitamin B1 Inj) 100 mg IM DAILY [facility] Last Admin: 08/27/18 08:20 Dose: 100 mg Vitamin B Complex/Vit C/Folic Acid (Nephro-Jannet) 1 tab PO DAILY [facility] Last Admin: 08/27/18 08:19 Dose: 1 tab Physical Exam - Head Exam Head Exam: ATRAUMATIC - Eye Exam Pupil Exam: PERRL Results - Vital Signs Recent Vital Signs: Last Vital Signs Temp 99 F 08/27/18 08:00 Pulse 82 08/27/18 08:00 Resp 21 08/27/18 08:00 BP 133/53 L 08/27/18 08:00 Pulse Ox 100 08/27/18 08:00 - Labs Result Diagrams: 08/27/18 04:19 08/27/18 04:19 Labs: Laboratory Results - last 24 hr 08/25/18 08/26/18 08/26/18 07:02 04:00 09:00 WBC RBC Hgb Hct MCV MCH MCHC RDW Plt Count PT INR APTT Fibrinogen pCO2 pO2 HCO3 ABG pH ABG Total CO2 ABG O2 Saturation ABG O2 Content ABG Base Excess ABG Hemoglobin ABG Carboxyhemoglobin POC ABG HHb (Measured) ABG Methemoglobin ABG O2 Capacity Genaro Test A-a O2 Difference Hgb O2 Saturation Vent Mode Mechanical Rate FiO2 Tidal Volume PEEP Sodium Potassium Chloride Carbon Dioxide Anion Gap BUN Creatinine Est GFR ( Amer) Est GFR (Non-Af Amer) Random Glucose Calcium Phosphorus 5.1 H Magnesium 1.7 Folate > 20.0 C. difficile Ag & Toxin Positive antigen 08/26/18 08/27/18 08/27/18 09:15 04:19 04:19 WBC 13.4 H RBC 2.46 L Hgb 8.4 L Hct 25.2 L MCV 102.1 H MCH 34.1 H MCHC 33.4 RDW 18.4 H Plt Count 48 L PT 11.9 INR 1.0 APTT 28.3 Fibrinogen 725 H* pCO2 pO2 HCO3 ABG pH ABG Total CO2 ABG O2 Saturation ABG O2 Content ABG Base Excess ABG Hemoglobin ABG Carboxyhemoglobin POC ABG HHb (Measured) ABG Methemoglobin ABG O2 Capacity Genaro Test A-a O2 Difference Hgb O2 Saturation Vent Mode Mechanical Rate FiO2 Tidal Volume PEEP Sodium 139 Potassium 3.7 Chloride 109 H Carbon Dioxide 23 Anion Gap 11 BUN 56 H Creatinine 2.7 H Est GFR ( Amer) 21 Est GFR (Non-Af Amer) 17 Random Glucose 132 H Calcium 6.8 L Phosphorus Magnesium Folate C. difficile Ag & Toxin 08/27/18 05:41 WBC RBC Hgb Hct MCV MCH MCHC RDW Plt Count PT INR APTT Fibrinogen pCO2 28 L pO2 155 H HCO3 21.5 ABG pH 7.44 ABG Total CO2 19.9 L ABG O2 Saturation 100.2 H ABG O2 Content 12.3 L ABG Base Excess -4.4 L ABG Hemoglobin 8.7 L ABG Carboxyhemoglobin 1.4 POC ABG HHb (Measured) -0.2 L ABG Methemoglobin 1.0 ABG O2 Capacity 12.3 L Genaro Test Yes A-a O2 Difference 95.0 Hgb O2 Saturation 97.8 Vent Mode Prvc/ac Mechanical Rate 12 FiO2 40.0 Tidal Volume 450 PEEP 5 Sodium Potassium Chloride Carbon Dioxide Anion Gap BUN Creatinine Est GFR ( Amer) Est GFR (Non-Af Amer) Random Glucose Calcium Phosphorus Magnesium Folate C. difficile Ag & Toxin Assessment/Plan - Assessment and Plan (Free Text) Assessment: Family meeting held on 08/25 with pt's DB (Daughter Ruth Andrews) and 2 other family members. Also present for meeting was Palliative Care RESIZER OPERATOR (Marci oRy) and Dr. Peterson. Family informed of pt's current critical condition and poor prognosis. 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 Ray -Off IVF, on Tube feeding - #GI - Diffuse Colitis on CTAP on admission - Repeat CTAP w/ po contrast shows worsening colitis and distended small bowel, no obstruction - GI and Surgery following, recommendations appreciated - - C diff toxic negative excluding active infection - On NG tube feedings #Heme/ID - Hg stable - Platelets stabe, DIC. Heparin held in light of + FOBT - Heme/Onc consulted - DIC work up sent; trend fibrinogen - SEPSIS criteria met via: Febrile, Leukocytosis 17 w/ Bandemia in 30s. Lactic acidosis resolved. Procalcitonin 37 - Bcx, Ucx, Stool cx pending - Sputum Cx (+) Stenotrophomonas Maltophilia - Vanco, Zosyn and Flagyl - Given AMS; will consider Lumbar Tap to r/u Meningitis/Encephalitis - LE mottling and scattered bruises/cyanotic digits concerning for DIC. Workup sent #PPX: GI PPx: Protonix IV daily DVT ppx: Heparin SQ (held) SCD's for now
--- NOTE | 2018-08-27 09:48 | CP.CCUPN ---
CCU Subjective - Physician Review Events Since Last Encounter (Free Text): 08/27/18 09:46 intubated, unresponsive CCU Objective - Vital Signs / Intake & Output Vital Signs (Last 4 hours): Vital Signs Temp Pulse Resp BP Pulse Ox 08/27/18 08:00 99 F 82 21 133/53 L 100 08/27/18 06:00 98.7 F 78 19 131/54 L 100 Intake and Output (Last 8hrs): Intake & Output 08/26/18 08/27/18 08/27/18 22:59 06:59 14:59 Intake Total 1460 1360 490 Output Total 160 Balance 1300 1360 490 Weight 148 lb Intake: IV 1000 1000 250 Intake, Piggyback 300 200 100 Tube Feeding 160 160 40 Free Water Flush 100 Output: Urine 160 Urethral (Segal) 160 Other: # Bowel Movements 1 - Physical Exam Narrative Physical Exam (Free Text): 08/27/18 09:47 P/E Neck: No JVD Lungs: No ronchi, crackles Abdomen: soft, non-tender Ext: No edema Heart: No gallop Head: Positive for: Atraumatic, Normocephalic Pupils: Positive for: Other (no corneal reflex, no doll's eyes, + NYSTAGMUS ). Negative for: PERRL, Sluggish Extroacular Muscles: Positive for: EOMI Conjunctiva: Positive for: Normal. Negative for: Injected, Icteric Neck: Positive for: Normal Range of Motion, Trachea Midline. Negative for: Men ingeal Signs, MIDLINE TENDERNESS, Paraspinal Tenderness, JVD, Lymphadenopathy, Bruit, Other Respiratory/Chest: Positive for: Decreased Breath Sounds, Rhonchi. Negative for: Respiratory Distress, Accessory Muscle Use Cardiovascular: Positive for: Regular Rate and Rhythm, Normal S1, S2, Peripheal Pulses Present. Negative for: Murmurs, Irregular Rhythm Abdomen: Positive for: Normal Bowel Sounds. Negative for: Distention Lower Extremity: Positive for: Other (+Mottling +cyanotic toes) Neurological: Negative for: GCS=15, CN II-XII Intact, Speech Normal Psychiatric: Negative for: Alert, Oriented x 3 (Patient is unresponsive to painful stimuli, no corneal reflex, no doll's eyes) - Medications Active Medications: Active Medications Generic Name Dose Route Start Last Admin Trade Name Freq PRN Reason Stop Dose Admin Acetaminophen 650 mg 08/22/18:49 08/23/18 16:24 Tylenol 650 Mg Supp [place] 650 mg Q6 PRN Administration Fever >100.4 F Calcium Carbonate 500 mg 08/24/18 13:00 08/27/18 08:20 Oscal PO 500 mg TID BHUPENDRA Administration Dimethicone 1 applic 08/25/18 10:45 08/27/18 08:20 Proshield Plus Skin Protectant TOP 1 applic Q8 BHUPENDRA Administration Ergocalciferol 1 cap 08/25/18 11:00 08/25/18 12:04 Drisdol 50,000 Intl Units Cap PO 1 cap Q7D BHUPENDRA Administration Folic Acid 1 mg 08/24/18 09:00 08/27/18 08:18 Folic Acid PO 1 mg DAILY [facility]UPENDRA Administration Heparin Sodium (Porcine) 5,000 units 08/23/18 21:00 08/24/18 21:00 Heparin SC 5,000 units Q12 BHUPENDRA Administration Protocol Piperacillin Sod/Tazobactam 100 mls @ 100 mls/hr 08/23/18 01:00 08/27/18 08:16 Sod 2.25 gm/ Sodium Chloride IVPB 100 mls/hr Q8 BHUPENDRA Administration Protocol Metronidazole 100 mls @ 100 mls/hr 08/24/18 19:00 08/27/18 03:05 Flagyl 500mg/100ml Ns IVPB 100 mls/hr Q8H BHUPENDRA Administration Protocol Levetiracetam 500 mg/ Sodium 105 mls @ 210 mls/hr 08/25/18 21:00 08/27/18 08:19 Chloride IVPB 210 mls/hr Q12 BHUPENDRA Administration Pantoprazole Sodium 40 mg 08/23/18 17:00 08/27/18 08:20 Protonix Inj IVP 40 mg DAILY [facility]UPENDRA Administration Thiamine HCl 100 mg 08/24/18 09:00 08/27/18 08:20 Vitamin B1 Inj IM 100 mg DAILY [facility]UPENDRA Administration Vitamin B Complex/Vit C/Folic Acid 1 tab 08/25/18 11:00 08/27/18 08:19 Nephro-Jannet PO 1 tab DAILY [facility]UPENDRA Administration - Patient Studies Lab Studies: Microbiology Studies 08/24/18 11:50 Gram Stain - Final Trachasp Sputum Culture - Final Stenotrophomonas Maltophilia 08/22/18 16:14 Blood Culture - Preliminary Blood-Venous NO GROWTH AFTER 4 DAYS 08/22/18 15:50 Blood Culture - Preliminary Blood-Venous NO GROWTH AFTER 4 DAYS 08/24/18 19:15 Stool Culture - Final Stool NO SALMONELLA, SHIGELLA OR CAMPYLOBACTER ISOLATED. Lab Studies 08/27/18 08/27/18 08/27/18 Range/Units 05:41 04:19 04:19 WBC 13.4 H (4.8-10.8) K/uL RBC 2.46 L (3.80-5.20) Mil/uL Hgb 8.4 L (12.0-16.0) g/dL Hct 25.2 L (34.0-47.0) % MCV 102.1 H (81.0-99.0) fl MCH 34.1 H (27.0-31.0) pg MCHC 33.4 (33.0-37.0) g/dL RDW 18.4 H (11.5-14.5) % Plt Count 48 L (130-400) K/uL APTT (25.6-37.1) Seconds Fibrinogen (200-400) mg/dl pCO2 28 L (35-45) mm/Hg pO2 155 H (80-100) mm/Hg HCO3 21.5 (21-28) mmol/L ABG pH 7.44 (7.35-7.45) ABG Total CO2 19.9 L (22-28) mmol/L ABG O2 Saturation 100.2 H (95-98) % ABG O2 Content 12.3 L (15-23) ML/dL ABG Base Excess -4.4 L (-2.0-3.0) mmol/L ABG Hemoglobin 8.7 L (11.7-17.4) g/dL ABG Carboxyhemoglobin 1.4 (0.5-1.5) % POC ABG HHb (Measured) -0.2 L (0.0-5.0) % ABG Methemoglobin 1.0 (0.0-3.0) % ABG O2 Capacity 12.3 L (16-24) mL/dL Genaro Test Yes A-a O2 Difference 95.0 mm/Hg Hgb O2 Saturation 97.8 (95.0-98.0) % Vent Mode Prvc/ac Mechanical Rate 12 FiO2 40.0 % Tidal Volume 450 PEEP 5 Sodium 139 (132-148) mmol/l Potassium 3.7 (3.6-5.0) MMOL/L Chloride 109 H (98-107) mmol/L Carbon Dioxide 23 (22-30) mmol/L Anion Gap 11 (10-20) BUN 56 H (7-17) mg/dl Creatinine 2.7 H (0.7-1.2) mg/dl Est GFR ( Amer) 21 Est GFR (Non-Af Amer) 17 Random Glucose 132 H (65-105) mg/dL Calcium 6.8 L (8.4-10.2) mg/dL Phosphorus (2.5-4.5) mg/dl Magnesium (1.6-2.3) MG/DL Folate ng/mL 08/26/18 08/26/18 08/26/18 Range/Units 09:15 09:00 04:00 WBC (4.8-10.8) K/uL RBC (3.80-5.20) Mil/uL Hgb (12.0-16.0) g/dL Hct (34.0-47.0) % MCV (81.0-99.0) fl MCH (27.0-31.0) pg MCHC (33.0-37.0) g/dL RDW (11.5-14.5) % Plt Count (130-400) K/uL APTT 28.3 (25.6-37.1) Seconds Fibrinogen 725 H* (200-400) mg/dl pCO2 (35-45) mm/Hg pO2 (80-100) mm/Hg HCO3 (21-28) mmol/L ABG pH (7.35-7.45) ABG Total CO2 (22-28) mmol/L ABG O2 Saturation (95-98) % ABG O2 Content (15-23) ML/dL ABG Base Excess (-2.0-3.0) mmol/L ABG Hemoglobin (11.7-17.4) g/dL ABG Carboxyhemoglobin (0.5-1.5) % POC ABG HHb (Measured) (0.0-5.0) % ABG Methemoglobin (0.0-3.0) % ABG O2 Capacity (16-24) mL/dL Genaor Test A-a O2 Difference mm/Hg Hgb O2 Saturation (95.0-98.0) % Vent Mode Mechanical Rate FiO2 % Tidal Volume PEEP Sodium (132-148) mmol/l Potassium (3.6-5.0) MMOL/L Chloride (98-107) mmol/L Carbon Dioxide (22-30) mmol/L Anion Gap (10-20) BUN (7-17) mg/dl Creatinine (0.7-1.2) mg/dl Est GFR ( Amer) Est GFR (Non-Af Amer) Random Glucose (65-105) mg/dL Calcium (8.4-10.2) mg/dL Phosphorus 5.1 H (2.5-4.5) mg/dl Magnesium 1.7 (1.6-2.3) MG/DL Folate > 20.0 ng/mL Laboratory Results - last 24 hr 08/26/18 08/26/18 08/26/18 04:00 09:00 09:15 WBC RBC Hgb Hct MCV MCH MCHC RDW Plt Count APTT 28.3 Fibrinogen 725 H* pCO2 pO2 HCO3 ABG pH ABG Total CO2 ABG O2 Saturation ABG O2 Content ABG Base Excess ABG Hemoglobin ABG Carboxyhemoglobin POC ABG HHb (Measured) ABG Methemoglobin ABG O2 Capacity Genaro Test A-a O2 Difference Hgb O2 Saturation Vent Mode Mechanical Rate FiO2 Tidal Volume PEEP Sodium Potassium Chloride Carbon Dioxide Anion Gap BUN Creatinine Est GFR ( Amer) Est GFR (Non-Af Amer) Random Glucose Calcium Phosphorus 5.1 H Magnesium 1.7 Folate > 20.0 08/27/18 08/27/18 08/27/18 04:19 04:19 05:41 WBC 13.4 H RBC 2.46 L Hgb 8.4 L Hct 25.2 L MCV 102.1 H MCH 34.1 H MCHC 33.4 RDW 18.4 H Plt Count 48 L APTT Fibrinogen pCO2 28 L pO2 155 H HCO3 21.5 ABG pH 7.44 ABG Total CO2 19.9 L ABG O2 Saturation 100.2 H ABG O2 Content 12.3 L ABG Base Excess -4.4 L ABG Hemoglobin 8.7 L ABG Carboxyhemoglobin 1.4 POC ABG HHb (Measured) -0.2 L ABG Methemoglobin 1.0 ABG O2 Capacity 12.3 L Genaro Test Yes A-a O2 Difference 95.0 Hgb O2 Saturation 97.8 Vent Mode Prvc/ac Mechanical Rate 12 FiO2 40.0 Tidal Volume 450 PEEP 5 Sodium 139 Potassium 3.7 Chloride 109 H Carbon Dioxide 23 Anion Gap 11 BUN 56 H Creatinine 2.7 H Est GFR ( Amer) 21 Est GFR (Non-Af Amer) 17 Random Glucose 132 H Calcium 6.8 L Phosphorus Magnesium Folate Radiology Impressions: Radiology Impressions Chest X-Ray 08/26/18 06:00 IMPRESSION: Support lines and tubes as above. Mild bibasilar atelectasis and suspected small bilateral effusions right larger than left Mild cardiomegaly. Chest X-Ray 08/27/18 06:00 IMPRESSION: No interval acute cardiopulmonary disease appreciable with stable positioning of tubes and catheter as discussed above. Fingerstick Blood Sugar Results: 238 Assessment/Plan - Assessment and Plan (Free Text) Assessment: Family meeting held on 08/25 with pt's JARODA (Daughter Ruth Andrews) and 2 other family members. Also present for meeting was Palliative Care SECURITY SHIFT SUPERVISOR (Marci Roy) and Dr. Peterson. Family informed of pt's current critical condition and poor prognosis. 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 Ray -Off IVF, on Tube feeding - #GI - Diffuse Colitis on CTAP on admission - Repeat CTAP w/ po contrast shows worsening colitis and distended small bowel, no obstruction - GI and Surgery following, recommendations appreciated - - C diff toxic negative excluding active infection - On NG tube feedings #Heme/ID - Hg stable - Platelets stabe, DIC. Heparin held in light of + FOBT - Heme/Onc consulted - DIC work up sent; trend fibrinogen - SEPSIS criteria met via: Febrile, Leukocytosis 17 w/ Bandemia in 30s. Lactic acidosis resolved. Procalcitonin 37 - Bcx, Ucx, Stool cx pending - Sputum Cx (+) Stenotrophomonas Maltophilia - Vanco, Zosyn and Flagyl - Given AMS; will consider Lumbar Tap to r/u Meningitis/Encephalitis - LE mottling and scattered bruises/cyanotic digits concerning for DIC. Workup sent #PPX: GI PPx: Protonix IV daily DVT ppx: Heparin SQ (held) SCD's for now
--- NOTE | 2018-08-27 14:27 | CP.PCM.PN ---
Subjective - Date & Time of Evaluation Date of Evaluation: 08/27/18 Time of Evaluation: 13:10 - Subjective Subjective: F/U Respiratory Failure comatose Objective - Vital Signs/Intake and Output Vital Signs (last 24 hours): Temp Pulse Resp BP Pulse Ox 100 F H 82 23 100/43 L 95 08/27/18 14:00 08/27/18 14:00 08/27/18 14:00 08/27/18 14:00 08/27/18 14:00 Intake and Output: 08/27/18 08/27/18 06:59 18:59 Intake Total 2140 880 Balance 2140 880 - Medications Medications: Current Medications Acetaminophen (Tylenol 650 Mg Supp) 650 mg [place] Q6 PRN PRN Reason: Fever >100.4 F Last Admin: 08/23/18 16:24 Dose: 650 mg Calcium Carbonate (Oscal) 500 mg PO TID [facility] Last Admin: 08/27/18 08:20 Dose: 500 mg Dimethicone (Proshield Plus Skin Protectant) 1 applic TOP Q8 [facility] Last Admin: 08/27/18 08:20 Dose: 1 applic Ergocalciferol (Drisdol 50,000 Intl Units Cap) 1 cap PO Q7D [facility] Last Admin: 08/25/18 12:04 Dose: 1 cap Folic Acid (Folic Acid) 1 mg PO DAILY [facility] Last Admin: 08/27/18 08:18 Dose: 1 mg Heparin Sodium (Porcine) (Heparin) 5,000 units SC Q12 [facility]; Protocol Last Admin: 08/24/18 21:00 Dose: 5,000 units Piperacillin Sod/Tazobactam (Sod 2.25 gm/ Sodium Chloride) 100 mls @ 100 mls/hr IVPB Q8 [facility]; Protocol Last Admin: 08/27/18 08:16 Dose: 100 mls/hr Metronidazole (Flagyl 500mg/100ml Ns) 100 mls @ 100 mls/hr IVPB Q8H [facility]; Protocol Last Admin: 08/27/18 03:05 Dose: 100 mls/hr Levetiracetam 500 mg/ Sodium (Chloride) 105 mls @ 210 mls/hr IVPB Q12 [facility] Last Admin: 08/27/18 08:19 Dose: 210 mls/hr Morphine Sulfate 100 mg/ (Sodium Chloride) 104 mls @ 4.16 mls/hr IV .Q24H [facility]; Protocol Pantoprazole Sodium (Protonix Inj) 40 mg IVP DAILY [facility] Last Admin: 08/27/18 08:20 Dose: 40 mg Thiamine HCl (Vitamin B1 Inj) 100 mg IM DAILY [facility] Last Admin: 08/27/18 08:20 Dose: 100 mg Vitamin B Complex/Vit C/Folic Acid (Nephro-Jannet) 1 tab PO DAILY [facility] Last Admin: 08/27/18 08:19 Dose: 1 tab - Labs Labs: 08/27/18 04:19 08/27/18 04:19 PT 11.9 Seconds (9.8-13.1) 08/26/18 09:15 INR 1.0 08/26/18 09:15 APTT 28.3 Seconds (25.6-37.1) 08/26/18 09:15 - Constitutional Appears: Chronically Ill - Head Exam Head Exam: NORMAL INSPECTION - Eye Exam Additional comments: sluggish reactive - ENT Exam Additional comments: intubated, OGT - Neck Exam Neck Exam: Normal Inspection - Respiratory Exam Respiratory Exam: Decreased Breath Sounds (at bases) - Cardiovascular Exam Cardiovascular Exam: REGULAR RHYTHM - GI/Abdominal Exam GI & Abdominal Exam: Soft, Normal Bowel Sounds - Extremities Exam Additional comments: edema, ecchymosis, necrotic toes - Neurological Exam Additional comments: comatose, no response to verbal/tactil stimuli - Skin Skin Exam: Warm Assessment and Plan (1) Acute respiratory failure Status: Acute (2) Septic shock Status: Acute (3) Altered mental status Status: Acute (4) Acute renal failure Status: Acute (5) Metabolic acidosis Status: Acute (6) Colitis Status: Acute (7) Transaminitis Status: Acute (8) Rhabdomyolysis Status: Acute (9) DMII (diabetes mellitus, type 2) Status: Chronic (10) Hypernatremia Status: Resolved (11) COPD (chronic obstructive pulmonary disease) Status: Deleted (12) Dementia Status: Chronic (13) History of alcohol abuse Status: Chronic - Assessment and Plan (Free Text) Plan: terminal extubation O2 NC, Morphine drip, DC all medications
--- NOTE | 2018-08-27 14:40 | CP.PCM.PN ---
Subjective - Date & Time of Evaluation Date of Evaluation: 08/27/18 Time of Evaluation: 12:30 - Subjective Subjective: Nephrology Consultation Note Assessment: critical Acute Kidney Injury (N17.9) likely due to ATN started HD 08/23/18 sepssi with shock, Colitis, thrombocytopenia acute CVA HAGMA, hyperkalemia, hypocalcemia hyperphos Dementia, COPD, ETOH abuse, Depression/Schizophrenias, Squamous cell carcinoma of mouth/neck, TIA rhabdomyolysis vit d def anemia Plan discussed /w primary team for terminal extubation will sign off Physical Examination: General Appearance: in no acute respiratory distress, ill appearing. orally intubated Vitals reviewed and noted as below ENT: orally intubated Neck; supple no lymphadenopathy, no thyromegaly or bruit Lungs: Normal respiratory rate/effort. Breath sounds bilateral equal and clear anteriorly Heart: Normal rate. s1s2 normal. No rub or gallop. Extremities: 1+ edema. No varicose veins Neurological: Patient is unresponsive Skin: Warm and dry. Normal turgor. No rash. Palpitation: Normal elasticity for age Abdomen: Abdomen is soft. Bowel sounds +. There is no abdominal tenderness, no guarding/rigidity no organomegaly Psych: unable MSK: echymoses over knee +. toes necrosis + : kidney or bladder not palpable. has wynne access: rt KIKE martinez Labs/imaging reviewed. Past medical history, past surgical history, family history, social history, allergy reviewed and noted as below Family hx: no hx of CKD. Rest non-contributory Objective - Vital Signs/Intake and Output Vital Signs (last 24 hours): Temp Pulse Resp BP Pulse Ox 100 F H 82 23 100/43 L 95 08/27/18 14:00 08/27/18 14:00 08/27/18 14:00 08/27/18 14:00 08/27/18 14:00 Intake and Output: 08/27/18 08/27/18 06:59 18:59 Intake Total 2140 880 Balance 2140 880 - Medications Medications: Current Medications Acetaminophen (Tylenol 650 Mg Supp) 650 mg [place] Q6 PRN PRN Reason: Fever >100.4 F Last Admin: 08/23/18 16:24 Dose: 650 mg Calcium Carbonate (Oscal) 500 mg PO TID [facility] Last Admin: 08/27/18 08:20 Dose: 500 mg Dimethicone (Proshield Plus Skin Protectant) 1 applic TOP Q8 [facility] Last Admin: 08/27/18 08:20 Dose: 1 applic Ergocalciferol (Drisdol 50,000 Intl Units Cap) 1 cap PO Q7D [facility] Last Admin: 08/25/18 12:04 Dose: 1 cap Folic Acid (Folic Acid) 1 mg PO DAILY [facility] Last Admin: 08/27/18 08:18 Dose: 1 mg Heparin Sodium (Porcine) (Heparin) 5,000 units SC Q12 [facility]; Protocol Last Admin: 08/24/18 21:00 Dose: 5,000 units Piperacillin Sod/Tazobactam (Sod 2.25 gm/ Sodium Chloride) 100 mls @ 100 mls/hr IVPB Q8 [facility]; Protocol Last Admin: 08/27/18 08:16 Dose: 100 mls/hr Metronidazole (Flagyl 500mg/100ml Ns) 100 mls @ 100 mls/hr IVPB Q8H [facility]; Pr otocol Last Admin: 08/27/18 03:05 Dose: 100 mls/hr Levetiracetam 500 mg/ Sodium (Chloride) 105 mls @ 210 mls/hr IVPB Q12 [facility] Last Admin: 08/27/18 08:19 Dose: 210 mls/hr Morphine Sulfate 100 mg/ (Sodium Chloride) 104 mls @ 4.16 mls/hr IV .Q24H [facility]; Protocol Pantoprazole Sodium (Protonix Inj) 40 mg IVP DAILY [facility] Last Admin: 08/27/18 08:20 Dose: 40 mg Thiamine HCl (Vitamin B1 Inj) 100 mg IM DAILY [facility] Last Admin: 08/27/18 08:20 Dose: 100 mg Vitamin B Complex/Vit C/Folic Acid (Nephro-Jannet) 1 tab PO DAILY [facility] Last Admin: 08/27/18 08:19 Dose: 1 tab - Labs Labs: 08/27/18 04:19 08/27/18 04:19 PT 11.9 Seconds (9.8-13.1) 08/26/18 09:15 INR 1.0 08/26/18 09:15 APTT 28.3 Seconds (25.6-37.1) 08/26/18 09:15
[2018-08-27] MEDS: Morphine 100 MG in Sodium Chloride 0.9% 100 ML IV SCH (14:49)
--- NOTE | 2018-08-27 22:13 | CP.PCM.PN ---
Subjective - Date & Time of Evaluation Date of Evaluation: 08/27/18 Time of Evaluation: 17:00 - Subjective Subjective: Vented Objective - Vital Signs/Intake and Output Vital Signs (last 24 hours): Temp Pulse Resp BP Pulse Ox 99.5 F 84 19 96/41 L 92 L 08/27/18 20:00 08/27/18 20:00 08/27/18 20:00 08/27/18 20:00 08/27/18 20:00 Intake and Output: 08/27/18 08/28/18 18:59 06:59 Intake Total 1092 Output Total 350 Balance 742 - Medications Medications: Current Medications Acetaminophen (Tylenol 650 Mg Supp) 650 mg [place] Q6 PRN PRN Reason: Fever >100.4 F Last Admin: 08/23/18 16:24 Dose: 650 mg Calcium Carbonate (Oscal) 500 mg PO TID [facility] Last Admin: 08/27/18 16:19 Dose: Not Given Dimethicone (Proshield Plus Skin Protectant) 1 applic TOP Q8 [facility] Last Admin: 08/27/18 16:19 Dose: 1 applic Ergocalciferol (Drisdol 50,000 Intl Units Cap) 1 cap PO Q7D [facility] Last Admin: 08/25/18 12:04 Dose: 1 cap Folic Acid (Folic Acid) 1 mg PO DAILY [facility] Last Admin: 08/27/18 08:18 Dose: 1 mg Heparin Sodium (Porcine) (Heparin) 5,000 units SC Q12 [facility]; Protocol Last Admin: 08/24/18 21:00 Dose: 5,000 units Piperacillin Sod/Tazobactam (Sod 2.25 gm/ Sodium Chloride) 100 mls @ 100 mls/hr IVPB Q8 [facility]; Protocol Last Admin: 08/27/18 16:17 Dose: 100 mls/hr Metronidazole (Flagyl 500mg/100ml Ns) 100 mls @ 100 mls/hr IVPB Q8H [facility]; Protocol Last Admin: 08/27/18 18:13 Dose: 100 mls/hr Levetiracetam 500 mg/ Sodium (Chloride) 105 mls @ 210 mls/hr IVPB Q12 [facility] Last Admin: 08/27/18 21:01 Dose: 210 mls/hr Morphine Sulfate 100 mg/ (Sodium Chloride) 104 mls @ 4.16 mls/hr IV .Q24H [facility]; Protocol Last Admin: 08/27/18 14:49 Dose: 4 mg/hr, 4.16 mls/hr Pantoprazole Sodium (Protonix Inj) 40 mg IVP DAILY [facility] Last Admin: 08/27/18 08:20 Dose: 40 mg Thiamine HCl (Vitamin B1 Inj) 100 mg IM DAILY [facility] Last Admin: 08/27/18 08:20 Dose: 100 mg Vitamin B Complex/Vit C/Folic Acid (Nephro-Jannet) 1 tab PO DAILY [facility] Last Admin: 08/27/18 08:19 Dose: 1 tab - Labs Labs: 08/27/18 04:19 08/27/18 04:19 PT 11.9 Seconds (9.8-13.1) 08/26/18 09:15 INR 1.0 08/26/18 09:15 APTT 28.3 Seconds (25.6-37.1) 08/26/18 09:15 - Head Exam Head Exam: ATRAUMATIC - Eye Exam Eye Exam: Normal appearance - ENT Exam ENT Exam: Mucous Membranes Dry - Respiratory Exam Respiratory Exam: Decreased Breath Sounds - Cardiovascular Exam Cardiovascular Exam: +S1, +S2 - GI/Abdominal Exam GI & Abdominal Exam: Normal Bowel Sounds Assessment and Plan (1) Thrombocytopenia Assessment & Plan: likely sepsis related no current DIC; trend fibrinogen transfuse plt if < 20,000 Status: Acute (2) Coagulopathy Assessment & Plan: no current DIC likely nutritional ? liver disease from alcohol vit K and FFP PRN Status: Acute (3) Anemia Assessment & Plan: anemia of chronic disease transfusion support PRN Status: Acute (4) Leukocytosis Assessment & Plan: on antibiotics Status: Acute (5) History of head and neck cancer Assessment & Plan: s/p surgery with ? recurrence in 2009 can evaluate once clinical status improved Status: Acute
[2018-08-27] MEDS ORDERED: Sodium Chloride 0.9% 1,000 ML IV SCH (23:45)
[2018-08-28] MEDS: Proshield Plus GEL TOP SCH ×3 (00:28→16:05)
[2018-08-28] MEDS: metroNIDAZOLE 500mg/100ml NS 100 ML IVPB SCH (02:40)
[2018-08-28] MEDS: Morphine 100 MG in Sodium Chloride 0.9% 100 ML IV SCH (15:09)
--- NOTE | 2018-08-28 16:13 | CP.PCM.PN ---
Subjective - Date & Time of Evaluation Date of Evaluation: 08/28/18 Time of Evaluation: 14:40 - Subjective Subjective: F/U Respiratory Failure. comatose Objective - Vital Signs/Intake and Output Vital Signs (last 24 hours): Temp Pulse Resp BP Pulse Ox 97.0 F L 75 11 L 94/41 L 97 08/28/18 12:00 08/28/18 12:00 08/28/18 12:00 08/28/18 12:00 08/28/18 12:00 Intake and Output: 08/28/18 08/28/18 06:59 18:59 Intake Total 464 104 Output Total 300 Balance 164 104 - Medications Medications: Current Medications Dimethicone (Proshield Plus Skin Protectant) 1 applic TOP Q8 [facility] Last Admin: 08/28/18 00:28 Dose: 1 applic Morphine Sulfate 100 mg/ (Sodium Chloride) 104 mls @ 4.16 mls/hr IV .Q24H [facility]; Protocol Last Admin: 08/28/18 15:09 Dose: 4 mg/hr, 4.16 mls/hr - Labs Labs: 08/27/18 04:19 08/27/18 04:19 PT 11.9 Seconds (9.8-13.1) 08/26/18 09:15 INR 1.0 08/26/18 09:15 APTT 28.3 Seconds (25.6-37.1) 08/26/18 09:15 - Constitutional Appears: Chronically Ill - Head Exam Head Exam: NORMOCEPHALIC - Eye Exam Additional comments: sluggish reactive - ENT Exam ENT Exam: Normal Exam - Neck Exam Neck Exam: Normal Inspection - Respiratory Exam Respiratory Exam: Decreased Breath Sounds (at bases) - Cardiovascular Exam Cardiovascular Exam: REGULAR RHYTHM - GI/Abdominal Exam GI & Abdominal Exam: Soft, Normal Bowel Sounds - Extremities Exam Additional comments: edema, ecchymosis, necrotic toes - Neurological Exam Additional comments: comatose, no response to verbal, tactile stimuli - Skin Additional comments: see wxtremities Assessment and Plan (1) Acute respiratory failure Status: Acute (2) Septic shock Status: Acute (3) Altered mental status Status: Acute (4) Acute renal failure Status: Acute (5) Metabolic acidosis Status: Acute (6) Colitis Status: Acute (7) Transaminitis Status: Acute (8) Rhabdomyolysis Status: Acute (9) DMII (diabetes mellitus, type 2) Status: Chronic (10) Hypernatremia Status: Resolved (11) COPD (chronic obstructive pulmonary disease) Status: Deleted (12) Dementia Status: Chronic (13) History of alcohol abuse Status: Chronic - Assessment and Plan (Free Text) Plan: on O2 NC, continue Morphine drip
--- NOTE | 2018-08-28 17:00 | CP.CCUPN ---
CCU Subjective - Physician Review Events Since Last Encounter (Free Text): 08/28/18 16:57 Pt was terminally extubated yesterday, will all family member in the room, I spoke to all of them , got their verbal consent before ordering extubation. She has been on morphine drip since then and has been unresponsive, her vitals, still relatively stable , after extubation . Can be transferred to floor, tomorrow. CCU Objective - Vital Signs / Intake & Output Intake and Output (Last 8hrs): Intake & Output 08/28/18 08/28/18 08/28/18 06:59 14:59 22:59 Intake Total 364 104 Output Total 300 Balance 64 104 Intake: IV 264 104 Intake, Piggyback 100 Output: Urine 300 Urethral (Segal) 300 - Physical Exam Head: Positive for: Atraumatic, Normocephalic Pupils: Positive for: Other (no corneal reflex, no doll's eyes, + NYSTAGMUS ). Negative for: PERRL, Sluggish Extroacular Muscles: Positive for: EOMI Conjunctiva: Positive for: Normal. Negative for: Injected, Icteric Neck: Positive for: Normal Range of Motion, Trachea Midline. Negative for: Meningeal Signs, MIDLINE TENDERNESS, Paraspinal Tenderness, JVD, Lymphadenopathy, Bruit, Other Respiratory/Chest: Positive for: Decreased Breath Sounds, Rhonchi. Negative for: Respiratory Distress, Accessory Muscle Use Cardiovascular: Positive for: Regular Rate and Rhythm, Normal S1, S2, Peripheal Pulses Present. Negative for: Murmurs, Irregular Rhythm Abdomen: Positive for: Normal Bowel Sounds. Negative for: Distention Lower Extremity: Positive for: Other (+Mottling +cyanotic toes) Neurological: Negative for: GCS=15, CN II-XII Intact, Speech Normal Psychiatric: Negative for: Alert, Oriented x 3 (Patient is unresponsive to painful stimuli, no corneal reflex, no doll's eyes) - Medications Active Medications: Active Medications Generic Name Dose Route Start Last Admin Trade Name Freq PRN Reason Stop Dose Admin Dimethicone 1 applic 08/25/18 10:45 08/28/18 00:28 Proshield Plus Skin Protectant TOP 1 applic Q8 [facility] Administration Morphine Sulfate 100 mg/ 104 mls @ 4.16 mls/hr 08/27/18 13:15 08/28/18 15:09 Sodium Chloride IV 4 mg/hr .Q24H [facility] 4.16 mls/hr Administration Protocol 4 MG/HR - Patient Studies Lab Studies: Microbiology Studies 08/22/18 16:14 Blood Culture - Final Blood-Venous NO GROWTH AFTER 5 DAYS Gram Stain - Final TEST NOT PERFORMED 08/22/18 15:50 Blood Culture - Final Blood-Venous NO GROWTH AFTER 5 DAYS Gram Stain - Final TEST NOT PERFORMED Lab Studies 08/25/18 Range/Units 16:45 Urine Myoglobin > 63014 H (< 28) mcg/L Laboratory Results - last 24 hr 08/25/18 16:45 Urine Myoglobin > 73222 H Fingerstick Blood Sugar Results: 238
--- NOTE | 2018-08-29 00:01 | CP.PCM.PN ---
Subjective - Date & Time of Evaluation Date of Evaluation: 08/28/18 Time of Evaluation: 12:00 - Subjective Subjective: Patient remains unresponsive. Objective - Vital Signs/Intake and Output Vital Signs (last 24 hours): Temp Pulse Resp BP Pulse Ox 98.7 F 82 14 101/38 L 92 L 08/28/18 20:00 08/28/18 20:00 08/28/18 20:00 08/28/18 20:00 08/28/18 20:00 Intake and Output: 08/28/18 08/29/18 18:59 06:59 Intake Total 104 8 Balance 104 8 - Medications Medications: Current Medications Dimethicone (Proshield Plus Skin Protectant) 1 applic TOP Q8 [facility] Last Admin: 08/28/18 00:28 Dose: 1 applic Morphine Sulfate 100 mg/ (Sodium Chloride) 104 mls @ 4.16 mls/hr IV .Q24H [facility]; Protocol Last Admin: 08/28/18 15:09 Dose: 4 mg/hr, 4.16 mls/hr - Labs Labs: 08/27/18 04:19 08/27/18 04:19 PT 11.9 Seconds (9.8-13.1) 08/26/18 09:15 INR 1.0 08/26/18 09:15 APTT 28.3 Seconds (25.6-37.1) 08/26/18 09:15 - Head Exam Head Exam: ATRAUMATIC - Eye Exam Eye Exam: absent: Scleral icterus - Respiratory Exam Respiratory Exam: Clear to Ausculation Bilateral - Cardiovascular Exam Cardiovascular Exam: REGULAR RHYTHM, +S1, +S2 - GI/Abdominal Exam GI & Abdominal Exam: Soft. absent: Tenderness Assessment and Plan (1) Colitis Assessment & Plan: Maggiekely from initial ischemic event. Abdomen on exam appears benign Status: Acute
[2018-08-29] MEDS: Proshield Plus GEL TOP SCH ×3 (03:51→16:36)
--- NOTE | 2018-08-29 14:52 | CP.PCM.PN ---
Subjective - Date & Time of Evaluation Date of Evaluation: 08/29/18 Time of Evaluation: 11:50 - Subjective Subjective: F/U respiratory Failure Comatose in Venti-Mask 40%. Objective - Vital Signs/Intake and Output Vital Signs (last 24 hours): Temp Pulse Resp BP Pulse Ox 98.8 F 90 16 105/37 L 93 L 08/29/18 11:38 08/29/18 11:38 08/29/18 11:38 08/29/18 11:38 08/29/18 11:38 Intake and Output: 08/29/18 08/29/18 06:59 18:59 Intake Total 8 8 Output Total 275 Balance -267 8 - Medications Medications: Current Medications Dimethicone (Proshield Plus Skin Protectant) 1 applic TOP Q8 [facility] Last Admin: 08/29/18 03:51 Dose: 1 applic Morphine Sulfate 100 mg/ (Sodium Chloride) 104 mls @ 4.16 mls/hr IV .Q24H [facility]; Protocol Last Admin: 08/28/18 15:09 Dose: 4 mg/hr, 4.16 mls/hr - Labs Labs: 08/27/18 04:19 08/27/18 04:19 PT 11.9 Seconds (9.8-13.1) 08/26/18 09:15 INR 1.0 08/26/18 09:15 APTT 28.3 Seconds (25.6-37.1) 08/26/18 09:15 - Constitutional Appears: Chronically Ill - Head Exam Head Exam: NORMAL INSPECTION - Eye Exam Additional comments: Sluggish pupils - ENT Exam ENT Exam: Normal Exam - Neck Exam Neck Exam: Normal Inspection - Respiratory Exam Respiratory Exam: Decreased Breath Sounds (at bases) - Cardiovascular Exam Cardiovascular Exam: REGULAR RHYTHM - GI/Abdominal Exam GI & Abdominal Exam: Soft, Normal Bowel Sounds - Extremities Exam Additional comments: Edema, ecchymosis, necrotic toes. - Neurological Exam Additional comments: Comatose, no response to verbal or tactile stimuli - Skin Additional comments: See extremities. Assessment and Plan (1) Acute respiratory failure Status: Acute (2) Septic shock Status: Acute (3) Altered mental status Status: Acute (4) Acute renal failure Status: Acute (5) Metabolic acidosis Status: Acute (6) Colitis Status: Acute (7) Transaminitis Status: Acute (8) Rhabdomyolysis Status: Acute (9) DMII (diabetes mellitus, type 2) Status: Chronic (10) Hypernatremia Status: Resolved (11) COPD (chronic obstructive pulmonary disease) Status: Deleted (12) Dementia Status: Chronic (13) History of alcohol abuse Status: Chronic - Assessment and Plan (Free Text) Plan: Morphine Drips, Hospice eval.
[2018-08-29] MEDS: Morphine 100 MG in Sodium Chloride 0.9% 100 ML IV SCH (15:18)
[2018-08-30] MEDS: Proshield Plus GEL TOP SCH ×2 (00:42→08:08)
--- NOTE | 2018-08-30 07:48 | CP.CCUPN ---
CCU Subjective - Physician Review Subjective (Free Text): 08/30/18 10:52 The patient was Seen and examined by me at the bedside, Medical records reviewed and Management issues were discussed and formulated with the house staff. 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 , osteoporosis, arthritis, and anxiety, colonic polyp, dementia, bipolar disorder, schizophrenia and posttraumatic stress disorder Who was brought in to the emergency room yesterday, she was found on the floor in her apartment by a maintenance construction helper covered in feces In the emergency room she was awake, restless, complaining of shortness of breath and abdominal pain Patient noted to be in respiratory distress, tachypneic, hemodynamically unstable with systolic blood pressure in the 90s, and she was urgently intubated in the emergency room for airway protection In the ER central line was placed in the femoral vein Labs was significant for severe metabolic acidosis with bicarb of 9, elevated lactic acid, acute kidney injury with BUN/creatinine of 211/5, severe hypernatremia with sodium of 158, chloride of 117 and leukocytosis with markedly elevated bandemia Patient met the criteria for severe sepsis, blood culture was sent and she was initiated on broad-spectrum antibiotic coverage with IV cefepime and vancomycin Renal consulted and hemodialysis access was placed Patient underwent emergent hemodialysis, two-physician consent obtained since at that time family member could not be reached Eventually social worker assistant was able to find the correct phone number I personally called the daughter and discussed with her extensively the patient diagnosis, critical condition, treatment plans and alternative ICU course noted for patient remains critically sick, unresponsive, Multiorgan failure EEG shows severe non specific diffuse disturbance of cortical activity and Head MRI revealed Extensive bilateral cerebral hemispheric infarcts are seen in volving the occipital, parietal and medial frontal lobes bilaterally as well as portions of the right cerebellar hemisphere. Palliative care consulted On 08/27, Patient was terminally extubated On my assessment this morning patient is unresponsive to painful stimuli, not localizing for sternal rub, no corneal reflex, On Morphine drip Remains hemodynamically stable After extubation, and plan for transfer out of ICU today, possible Hospice care CCU Objective - Vital Signs / Intake & Output Vital Signs (Last 4 hours): Vital Signs Temp Pulse Resp BP Pulse Ox 08/30/18 06:00 96.7 F L 82 12 108/40 L 93 L 08/30/18 04:00 97.0 F L 84 13 97/33 L 92 L Intake and Output (Last 8hrs): Intake & Output 08/29/18 08/30/18 08/30/18 22:59 06:59 14:59 Intake Total 112 67.4 Output Total 225 Balance -113 67.4 Weight 150 lb Intake: IV 112 67.4 Output: Urine 225 Urethral (Segal) 225 - Physical Exam Head: Positive for: Atraumatic, Normocephalic Pupils: Positive for: Other (no corneal reflex, no doll's eyes, + NYSTAGMUS ). Negative for: PERRL, Sluggish Extroacular Muscles: Positive for: EOMI Conjunctiva: Positive for: Normal. Negative for: Injected, Icteric Neck: Positive for: Normal Range of Motion, Trachea Midline. Negative for: Meningeal Signs, MIDLINE TENDERNESS, Paraspinal Tenderness, JVD, Lymphadenopathy, Bruit, Other Respiratory/Chest: Positive for: Decreased Breath Sounds, Rhonchi. Negative for: Respiratory Distress, Accessory Muscle Use Cardiovascular: Positive for: Regular Rate and Rhythm, Normal S1, S2, Peripheal Pulses Present. Negative for: Murmurs, Irregular Rhythm Abdomen: Positive for: Normal Bowel Sounds. Negative for: Distention Upper Extremity: Positive for: Edema. Negative for: Cyanosis Lower Extremity: Positive for: Edema, Other (+Mottling +cyanotic toes) Neurological: Negative for: GCS=15, CN II-XII Intact, Speech Normal Psychiatric: Negative for: Alert, Oriented x 3 (Patient is unresponsive to painful stimuli, no corneal reflex, no doll's eyes) - Medications Active Medications: Active Medications Generic Name Dose Route Start Last Admin Trade Name Freq PRN Reason Stop Dose Admin Dimethicone 1 applic 08/25/18 10:45 08/30/18 00:42 Proshield Plus Skin Protectant TOP 1 applic Q8 [facility]UP[facility]DRA Administration Morphine Sulfate 100 mg/ 104 mls @ 4.16 mls/hr 08/27/18 13:15 08/30/18 07:00 Sodium Chloride IV 5 mg/hr .Q24H [facility]UPENDRA 5.2 mls/hr Titration Protocol 4 MG/HR - Patient Studies Fingerstick Blood Sugar Results: 238 Review of Systems - Review of Systems Systems not reviewed;Unavailable: Acuity of Condition Assessment/Plan (1) Altered mental status Current Visit: Yes Status: Acute Priority: High (2) Acute respiratory failure Current Visit: Yes Status: Acute Priority: High (3) Septic shock Current Visit: Yes Status: Acute Priority: High (4) Acute renal failure Current Visit: Yes Status: Acute Priority: High (5) Metabolic acidosis Current Visit: Yes Status: Acute Priority: High (6) Hypernatremia Current Visit: Yes Status: Resolved Priority: High
[2018-08-30 08:03] VITALS: BP 103/36; PULSE 81; RESP 10; TEMP 96.3; O2SAT 92
--- NOTE | 2018-08-30 10:53 | PCM.PPROG ---
History of Present Illness - History of Present Illness History of Present Illness: Patient is a 83 year old female who came to the ER on 08/22/18 with EMS. Maintenence workers found her in her apartment covered in feces. In the ER she also complained of SOB and abdominal pain. She was not able to provide a good history. She was admitted to ICU for Acute renal failure, respiratory failure , alcohol withdrawal, AMS. She was intubated on vent in ICU. 08/23 MRI brain showed bilateral cerebral hemispheric infarcts. Discussions held with family about Goals of Care. Patient terminally extubated on 08/27 PMH: Anxiety, arthritis, bipolar disorder, colonic polyps, COPD, Dementia, Depression, Fractures, HTN, Hypercholesterolemia, Squamous cell carcinoma of the mouth/neck, osteoporosis, PTSD, Schizophrenia Soc hx: Former smoker, ETOH user, Lives alone Fam hx: Unknown 08/22 CXR no interval pathology noted 08/[address]: No intracranial mass, hemmorhage, or evidence of acute infarct 08/23 MRI brain: Bilateral cerebral hemispheric Infarcts Review of Systems - Review of Systems Systems not reviewed;Unavailable: Acuity of Condition Review of Systems: ROS not obtained, patient unresponsive Physical Exam - Constitutional Appears: No Acute Distress, Chronically Ill - Head Exam Head Exam: ATRAUMATIC, NORMAL INSPECTION, NORMOCEPHALIC - Eye Exam Pupil Exam: Fixed - ENT Exam ENT Exam: Mucous Membranes Moist - Respiratory Exam Respiratory Exam: Decreased Breath Sounds - Cardiovascular Exam Cardiovascular Exam: REGULAR RHYTHM - Exam Additional comments: has f/c - Neurological Exam Additional comments: not alert, does not respond to voice or touch - Skin Skin Exam: Dry, Mottled, Pallor Palliative Care Assessment - Modified MRC Dyspnea Scale Modified MRC Dyspnea Scale: Too breathless to leave the house,or breathless dressing or undressing Grade: 5 - Pain Scale Pain Score: 0 Pain Scale Used: Chen-Nguyen Palliative Care - Goals Goal(s) of care: Goals of Care: Family gave consent for terminal extubation on wednesday. Family will have hospice eval today. Code Status: DNR/DNI Treatment Goal(s): Alleviate symptoms End of life care discussed: Yes End of life discussion: End of life discussions held on multiple occasions with daughter Louis. Hospice Eval today - Plan Interdisciplinary involved: Nurse, medicine worker, assistant warehouse manager, Physician, Pastoral care Discharge planning: Hospice Assessment & Plan - Assessment and Plan (Free Text) Assessment: Impression Acute Respiratory Failure acute renal failure e Suggestion Continue Morphine Drip Hospice eval today Palliative Care will remain on board as needed Time spent with patient 45 min
[2018-08-30] MEDS: Morphine 100 MG in Sodium Chloride 0.9% 100 ML IV SCH (14:33)
--- NOTE | 2018-08-30 15:22 | CP.PCM.PN ---
Subjective - Date & Time of Evaluation Date of Evaluation: 08/30/18 Time of Evaluation: 09:40 - Subjective Subjective: F/U Respiratory failure Objective - Vital Signs/Intake and Output Vital Signs (last 24 hours): Temp Pulse Resp BP Pulse Ox 96.3 F L 81 10 L 103/36 L 92 L 08/30/18 08:00 08/30/18 08:00 08/30/18 08:00 08/30/18 08:00 08/30/18 08:00 Intake and Output: 08/30/18 08/30/18 06:59 18:59 Intake Total 8 109.0 Output Total 15 Balance 8 94.0 - Medications Medications: Current Medications Dimethicone (Proshield Plus Skin Protectant) 1 applic TOP Q8 BHUPENDRA Last Admin: 08/30/18 08:08 Dose: 1 applic Morphine Sulfate 100 mg/ (Sodium Chloride) 104 mls @ 4.16 mls/hr IV .Q24H BHUPENDRA; Protocol Last Admin: 08/30/18 14:33 Dose: 5 mg/hr, 5.2 mls/hr - Labs Labs: 08/27/18 04:19 08/27/18 04:19 PT 11.9 Seconds (9.8-13.1) 08/26/18 09:15 INR 1.0 08/26/18 09:15 APTT 28.3 Seconds (25.6-37.1) 08/26/18 09:15 - Constitutional Appears: Chronically Ill - Head Exam Head Exam: NORMAL INSPECTION - Eye Exam Pupil Exam: Fixed - ENT Exam ENT Exam: Normal Exam - Neck Exam Neck Exam: Normal Inspection - Respiratory Exam Respiratory Exam: Decreased Breath Sounds (at bases) - Cardiovascular Exam Cardiovascular Exam: REGULAR RHYTHM - GI/Abdominal Exam GI & Abdominal Exam: Soft, Normal Bowel Sounds - Exam Additional comments: Segal - Extremities Exam Additional comments: Edema, ecchymosis, necrotic toes. - Neurological Exam Additional comments: Comatose, no response - Skin Skin Exam: Dry, Pallor Assessment and Plan (1) Acute respiratory failure Status: Acute (2) Septic shock Status: Acute (3) Altered mental status Status: Acute (4) Acute renal failure Status: Acute (5) Metabolic acidosis Status: Acute (6) Colitis Status: Acute (7) Transaminitis Status: Acute (8) Rhabdomyolysis Status: Acute (9) DMII (diabetes mellitus, type 2) Status: Chronic (10) Hypernatremia Status: Resolved (11) COPD (chronic obstructive pulmonary disease) Status: Deleted (12) Dementia Status: Chronic (13) History of alcohol abuse Status: Chronic
--- NOTE | 2018-08-30 15:54 | CP.PCM.DIS ---
Provider - Provider Date of Admission: 08/22/18 17:03 Attending physician: Primo Solis MD Consults: 08/22/18 17:11 Nephrology Consult Stat Comment: Consulting Provider: Zay Hernandez Consulting Physician: Zay Hernandez Reason for Consult: ARF 08/22/18 17:40 Infectious Disease Consult Stat Comment: Consulting Provider: Faraz Hammond Consulting Physician: Faraz Hammond Reason for Consult: Sepsis 08/22/18 18:19 Surgery [General Surgery Consult] Stat Comment: Consulting Provider: Derrek Al Consulting Physician: Derrek Al Reason for Consult: dialysis catheter placement 08/22/18 23:15 Nursing Referral for Wound Care Routine Comment: Physician Instructions: Reason For Exam: ecchymotic areas 08/23/18 12:54 Neurology Consult Routine Comment: Altered mental status Consulting Provider: Ernst Medley Consulting Physician: Ernst Medley Reason for Consult: Altered mental status 08/23/18 15:24 Social Work Referral Routine Comment: lives alone Physician Instructions: Reason For Exam: admission protocol 08/24/18 10:34 Palliative Care Consult Routine Comment: Consulting Provider: Marci Roy Physician Instructions: Reason For Exam: poor prognosis 08/24/18 11:15 Gastroenterology Consult Routine Comment: Consulting Provider: Sudheer Mason Consulting Physician: Sudheer Mason Reason for Consult: possibel ischemic bowel General Surgery Consult Stat Comment: Consulting Provider: Derrek Al Consulting Physician: Derrek Al Reason for Consult: high susp for ischemic bowel 08/24/18 14:31 Hematology Oncology Consult Routine Comment: Consulting Provider: Evert Ward Consulting Physician: Evert Ward Reason for Consult: low platelets, high fibrinogen and d ddimer 08/29/18 15:08 Case Management Referral Routine Comment: Physician Instructions: Reason For Exam: Hospice evaluation. Reason for Referral: Hospice Eval Diagnosis - Discharge Diagnosis (1) Acute respiratory failure Status: Acute Priority: High (2) Septic shock Status: Acute Priority: High (3) Altered mental status Status: Acute Priority: High (4) Acute renal failure Status: Acute Priority: High (5) Metabolic acidosis Status: Acute Priority: High (6) Colitis Status: Acute Priority: High (7) Transaminitis Status: Acute (8) Rhabdomyolysis Status: Acute (9) DMII (diabetes mellitus, type 2) Status: Chronic Priority: High (10) Hypernatremia Status: Resolved Priority: High (11) COPD (chronic obstructive pulmonary disease) Status: Deleted Priority: Medium (12) Dementia Status: Chronic Priority: High (13) History of alcohol abuse Status: Chronic Hospital Course - Lab Results Lab Results: Micro Results 08/26/18 07:02 Stool Ova and Parasite Concentrate Exam - Final 08/22/18 16:14 Blood-Venous Blood Culture - Final NO GROWTH AFTER 5 DAYS 08/22/18 16:14 Blood-Venous Gram Stain - Final TEST NOT PERFORMED 08/22/18 15:50 Blood-Venous Blood Culture - Final NO GROWTH AFTER 5 DAYS 08/22/18 15:50 Blood-Venous Gram Stain - Final TEST NOT PERFORMED 08/24/18 11:50 Trachasp Gram Stain - Final 08/24/18 11:50 Trachasp Sputum Culture - Final Stenotrophomonas Maltophilia 08/24/18 19:15 Stool Stool Culture - Final NO SALMONELLA, SHIGELLA OR CAMPYLOBACTER ISOLATED. 08/22/18 19:50 Naris MRSA Culture (Admit) - Final MRSA NOT DETECTED 08/22/18 17:20 Urine,Segal Urine Culture - Final <10,000 CFU/ML. MULTIPLE SPECIES. PROBABLE CONTAMINATION. Most Recent Lab Values WBC 13.4 K/uL (4.8-10.8) H 08/27/18 04:19 RBC 2.46 Mil/uL (3.80-5.20) L 08/27/18 04:19 Hgb 8.4 g/dL (12.0-16.0) L 08/27/18 04:19 Hct 25.2 % (34.0-47.0) L 08/27/18 04:19 MCV 102.1 fl (81.0-99.0) H 08/27/18 04:19 MCH 34.1 pg (27.0-31.0) H 08/27/18 04:19 MCHC 33.4 g/dL (33.0-37.0) 08/27/18 04:19 RDW 18.4 % (11.5-14.5) H 08/27/18 04:19 Plt Count 48 K/uL (130-400) L 08/27/18 04:19 MPV 10.4 fl (7.2-11.7) 08/25/18 05:00 Neut % (Auto) 89.1 % (50.0-75.0) H 08/25/18 05:00 Lymph % (Auto) 4.9 % (20.0-40.0) L 08/25/18 05:00 Sherman % (Auto) 5.4 % (0.0-10.0) 08/25/18 05:00 Eos % (Auto) 0.4 % (0.0-4.0) 08/25/18 05:00 Baso % (Auto) 0.2 % (0.0-2.0) 08/25/18 05:00 Neut # (Auto) 15.5 K/uL (1.8-7.0) H 08/25/18 05:00 Lymph # (Auto) 0.8 K/uL (1.0-4.3) L 08/25/18 05:00 Sherman # (Auto) 0.9 K/uL (0.0-0.8) H 08/25/18 05:00 Eos # (Auto) 0.1 K/uL (0.0-0.7) 08/25/18 05:00 Baso # (Auto) 0.0 K/uL (0.0-0.2) 08/25/18 05:00 Neutrophils % (Manual) 35 % (42-75) L 08/23/18 11:30 Band Neutrophils % 34 % (0-2) H* 08/23/18 11:30 Lymphocytes % (Manual) 6 % (20-50) L 08/23/18 11:30 Reactive Lymphs % 2 % (0-0) H 08/23/18 11:30 Monocytes % (Manual) 12 % (0-10) H 08/23/18 11:30 Metamyelocytes % 4 % (0-0) H 08/23/18 11:30 Myelocytes % 7 % (0-0) H 08/23/18 11:30 Nucleated RBC % 9 % (0-0) H 08/23/18 11:30 Platelet Estimate Normal (NORMAL) 08/23/18 11:30 Large Platelets Present 08/23/18 11:30 Giant Platelets Present 08/23/18 11:30 Poikilocytosis (manual Slight 08/23/18 11:30 Anisocytosis (manual) Slight 08/23/18 11:30 Macrocytosis (manual) Slight 08/23/18 11:30 Tear Drop Cells Slight 08/23/18 11:30 Ovalocytes Slight 08/23/18 11:30 Stomatocytes Slight 08/23/18 04:40 Retic Count 1.8 % (0.5-1.5) H 08/26/18 05:15 PT 11.9 Seconds (9.8-13.1) 08/26/18 09:15 INR 1.0 08/26/18 09:15 APTT 28.3 Seconds (25.6-37.1) 08/26/18 09:15 Fibrinogen 725 mg/dl (200-400) H* 08/26/18 09:15 D-Dimer, Quantitative 7701 ng/mlDDU (0-230) H 08/24/18 11:50 pCO2 28 mm/Hg (35-45) L 08/27/18 05:41 pO2 155 mm/Hg (80-100) H 08/27/18 05:41 HCO3 21.5 mmol/L (21-28) 08/27/18 05:41 ABG pH 7.44 (7.35-7.45) 08/27/18 05:41 ABG Total CO2 19.9 mmol/L (22-28) L 08/27/18 05:41 ABG O2 Saturation 100.2 % (95-98) H 08/27/18 05:41 ABG O2 Content 12.3 ML/dL (15-23) L 08/27/18 05:41 ABG Base Excess -4.4 mmol/L (-2.0-3.0) L 08/27/18 05:41 ABG Hemoglobin 8.7 g/dL (11.7-17.4) L 08/27/18 05:41 ABG Carboxyhemoglobin 1.4 % (0.5-1.5) 08/27/18 05:41 POC ABG HHb (Measured) -0.2 % (0.0-5.0) L 08/27/18 05:41 ABG Methemoglobin 1.0 % (0.0-3.0) 08/27/18 05:41 ABG O2 Capacity 12.3 mL/dL (16-24) L 08/27/18 05:41 Genaro Test Yes 08/27/18 05:41 ABG Potassium 3.4 mmol/L (3.6-5.2) L 08/25/18 05:34 VBG pH 7.39 (7.32-7.43) 08/22/18 20:18 VBG pCO2 32 mmHg (40-60) L 08/22/18 20:18 VBG HCO3 20.5 mmol/L 08/22/18 20:18 VBG Total CO2 20.4 mmol/L (22-28) L 08/22/18 20:18 VBG O2 Sat (Calc) 67.4 % (40-65) H 08/22/18 20:18 VBG Base Excess -4.6 mmol/L (0.0-2.0) L 08/22/18 20:18 VBG Potassium 3.2 mmol/L (3.6-5.2) L 08/22/18 20:18 A-a O2 Difference 95.0 mm/Hg 08/27/18 05:41 Hgb O2 Saturation 97.8 % (95.0-98.0) 08/27/18 05:41 Sodium 138.0 mmol/L (132-148) 08/25/18 05:34 Chloride 109.0 mmol/L (98-107) H 08/25/18 05:34 Glucose 92 mg/dL (65-105) 08/25/18 05:34 Lactate 1.2 mmol/L (0.7-2.1) 08/25/18 05:34 Vent Mode Prvc/ac 08/27/18 05:41 Mechanical Rate 12 08/27/18 05:41 FiO2 40.0 % 08/27/18 05:41 Tidal Volume 450 08/27/18 05:41 PEEP 5 08/27/18 05:41 Crit Value Called To Monserrat toscano rn 08/24/18 03:44 Crit Value Called By [id number] 08/24/18 03:44 Crit Value Read Back Y 08/24/18 03:44 Blood Gas Notified Time 350 08/24/18 03:44 Sodium 139 mmol/l (132-148) 08/27/18 04:19 Potassium 3.7 MMOL/L (3.6-5.0) 08/27/18 04:19 Chloride 109 mmol/L (98-107) H 08/27/18 04:19 Carbon Dioxide 23 mmol/L (22-30) 08/27/18 04:19 Anion Gap 11 (10-20) 08/27/18 04:19 BUN 56 mg/dl (7-17) H 08/27/18 04:19 Creatinine 2.7 mg/dl (0.7-1.2) H 08/27/18 04:19 Est GFR ( Amer) 08/27/18 04:19 Est GFR (Non-Af Amer) 08/27/18 04:19 POC Glucose (mg/dL) 278 mg/dL (65-110) H 08/22/18 14:53 Random Glucose 132 mg/dL (65-105) H 08/27/18 04:19 Serum Osmolality 356 mosm/kg (272-300) H 08/23/18 09:25 Lactic Acid 4.4 mmol/L (0.7-2.1) H* 08/23/18 20:47 Calcium 6.8 mg/dL (8.4-10.2) L 08/27/18 04:19 Phosphorus 5.1 mg/dl (2.5-4.5) H 08/26/18 09:00 Magnesium 1.7 MG/DL (1.6-2.3) 08/26/18 09:00 Ferritin 624.0 ng/Ml (11.1-264.0) H 08/26/18 04:00 Total Bilirubin 1.0 mg/dl (0.2-1.3) 08/25/18 05:00 AST 1342 U/L (14-36) H 08/25/18 05:00 ALT 259 U/L (9-52) H 08/25/18 05:00 Alkaline Phosphatase 175 U/L (38-126) H 08/25/18 05:00 Ammonia < 9 umol/L (9-33) L D 08/25/18 05:00 Total Creatine Kinase 3008 U/L (30-135) H 08/25/18 10:48 Troponin I 0.0570 ng/mL (0.00-0.120) 08/22/18 16:24 Total Protein 5.3 G/DL (6.3-8.2) L 08/25/18 05:00 Albumin 2.6 g/dL (3.5-5.0) L 08/25/18 05:00 Globulin 2.7 gm/dL (2.2-3.9) 08/25/18 05:00 Albumin/Globulin Ratio 1.0 (1.0-2.1) 08/25/18 05:00 Lipase 209 U/L (23-300) 08/22/18 16:24 Vitamin B12 > 1000 pg/mL (239-931) H 08/26/18 04:00 25-OH Vitamin D Total 17.7 NG/ML (30.0-100.0) L 08/24/18 10:15 Folate > 20.0 ng/mL 08/26/18 04:00 Procalcitonin 37.90 NG/ML (0.19-0.49) H 08/24/18 14:45 PTH Intact Whole Molec 454 pg/mL (14-64) H 08/24/18 10:15 Arterial Blood Potassium 3.4 mmol/L (3.6-5.2) L 08/25/18 05:34 Venous Blood Potassium 3.2 mmol/L (3.6-5.2) L 08/22/18 20:18 Urine Color Cherri (YELLOW) 08/25/18 05:15 Urine Clarity Turbid (Clear) 08/25/18 05:15 Urine pH 5.0 (5.0-8.0) 08/25/18 05:15 Ur Specific Homer 1.017 (1.003-1.030) 08/25/18 05:15 Urine Protein 100 mg/dL (NEGATIVE) 08/25/18 05:15 Urine Glucose (UA) Neg mg/dL (NEGATIVE) 08/25/18 05:15 Urine Ketones Negative mg/dL (NEGATIVE) 08/25/18 05:15 Urine Blood Large (NEGATIVE) 08/25/18 05:15 Urine Nitrate Negative (NEGATIVE) 08/25/18 05:15 Urine Bilirubin Negative (NEGATIVE) 08/25/18 05:15 Urine Urobilinogen 0.2-1.0 mg/dL (0.2-1.0) 08/25/18 05:15 Ur Leukocyte Esterase Mod Kelly/uL (Negative) 08/25/18 05:15 Urine RBC (Auto) 178 /hpf (0-3) H 08/25/18 05:15 Urine Microscopic WBC 738 /hpf (0-5) H 08/25/18 05:15 Ur Squamous Epith Cells 10 /hpf (0-5) H 08/25/18 05:15 Urine Bacteria Occ (<OCC) H 08/25/18 05:15 Urine Yeast (Budding) Many /hpf (NEGATIVE) H 08/25/18 05:15 Urine Myoglobin > 35063 mcg/L (< 28) H 08/25/18 16:45 Stool Occult Blood Positive (NEGATIVE) H 08/23/18 11:20 Urine Opiates Screen Negative (NEGATIVE) 08/23/18 11:00 Urine Methadone Screen Negative (NEGATIVE) 08/23/18 11:00 Ur Barbiturates Screen Negative (NEGATIVE) 08/23/18 11:00 Ur Phencyclidine Scrn Negative (NEGATIVE) 08/23/18 11:00 Ur Amphetamines Screen Negative (NEGATIVE) 08/23/18 11:00 U Benzodiazepines Scrn Positive (NEGATIVE) 08/23/18 11:00 U Oth Cocaine Metabols Negative (NEGATIVE) 08/23/18 11:00 U Cannabinoids Screen Negative (NEGATIVE) 08/23/18 11:00 Alcohol, Quantitative < 10 mg/dl (0-10) 08/24/18 13:45 Heparin-induced Plt Ab Positive (Negative) H 08/24/18 11:50 HIPA Patient OD 0.876 08/24/18 11:50 C. difficile Ag & Toxin Positive antigen (NEGATIVE) 08/25/18 07:02 Hep Bs Antigen Negative (NEGATIVE) 08/23/18 07:09 Hep Bs Antibody, Quant <5 mIU/mL (>or=10) L 08/23/18 09:25 Hep B Core IgM Ab Negative (NEGATIVE) 08/23/18 09:25 Hepatitis C Antibody Negative (NEGATIVE) 08/23/18 09:25 Discharge Exam - Head Exam Head Exam: NORMAL INSPECTION Discharge Plan - Follow Up Plan Condition: CRITICAL Disposition: HOME/ ROUTINE
== END 2018-08-30 16:11 | disposition hospice, inpatient (51) | DRG 870 ==
LOC: H.ER 14:34 → H.ERHOLD 17:03 → H.ICU/CCU 19:07
PROVIDERS: ADMIT Internal Medicine Pulmonary Disease; ATTEND Internal Medicine Pulmonary Disease
PROC: 05HM33Z Insertion of Infusion Device into Right Internal Jugular Vein, Percutaneous Approach (ICD-10-PCS; principal; 2018-08-22)
PROC: 5A1955Z Respiratory Ventilation, Greater than 96 Consecutive Hours (ICD-10-PCS; 2018-08-22)
PROC: 06HM33Z Insertion of Infusion Device into Right Femoral Vein, Percutaneous Approach (ICD-10-PCS; 2018-08-22)
PROC: 0BH17EZ Insertion of Endotracheal Airway into Trachea, Via Natural or Artificial Opening (ICD-10-PCS; 2018-08-22)
PROC: 5A1D70Z Performance of Urinary Filtration, Intermittent, Less than 6 Hours Per Day (ICD-10-PCS; 2018-08-24)
DX: A41.9 Sepsis, unspecified organism (principal); R65.21 Severe sepsis with septic shock; J96.00 Acute respiratory failure, unspecified whether with hypoxia or hypercapnia; N17.0 Acute kidney failure with tubular necrosis; K72.00 Acute and subacute hepatic failure without coma; I63.9 Cerebral infarction, unspecified; E87.0 Hyperosmolality and hypernatremia; K51.00 Ulcerative (chronic) pancolitis without complications; M62.82 Rhabdomyolysis; G93.1 Anoxic brain damage, not elsewhere classified; J44.9 Chronic obstructive pulmonary disease, unspecified; Z99.81 Dependence on supplemental oxygen; Z87.891 Personal history of nicotine dependence; F03.90 Unspecified dementia, unspecified severity, without behavioral disturbance, psychotic disturbance, mood disturbance, and anxiety; I10 Essential (primary) hypertension; E78.00 Pure hypercholesterolemia, unspecified; E11.9 Type 2 diabetes mellitus without complications; E78.5 Hyperlipidemia, unspecified; H11.33 Conjunctival hemorrhage, bilateral; M81.0 Age-related osteoporosis without current pathological fracture; D69.59 Other secondary thrombocytopenia; E83.39 Other disorders of phosphorus metabolism; E83.51 Hypocalcemia; Z51.5 Encounter for palliative care; F20.9 Schizophrenia, unspecified; F31.9 Bipolar disorder, unspecified; F43.10 Post-traumatic stress disorder, unspecified

== ENCOUNTER 2018-08-30 16:07 | Inpatient (IN) | payer OTHER ==
[2018-08-30 16:15] VITALS: BMI 25.7
[2018-08-30] MEDS: Morphine 100 MG in Sodium Chloride 0.9% 100 ML IV SCH (18:41)
[2018-08-31] MEDS: Morphine 100 MG in Sodium Chloride 0.9% 100 ML IV SCH (12:21)
--- NOTE | 2018-08-31 14:14 | CP.PCM.HP ---
History of Present Illness - History of Present Illness History of Present Illness: 73 y/o F, with multiple chronic medical Dx likely; Acute Respiratory failure, Septic Shock, Metabolic Acidosis, ARF, Pt was admitted on Hospice at [facility] on 08/30/18 to have comfortable care in her final end of live. Today, Pt still comatose, no response, having shallow breathing in irregular rhythm with intermittent labored inspiration. Present on Admission - Present on Admission Any Indicators Present on Admission: No Review of Systems - Review of Systems Systems not reviewed;Unavailable: Acuity of Condition, Respiratory Distress, Other (End of life) Past Patient History - Infectious Disease Hx of Infectious Diseases: None - Tetanus Immunizations Tetanus Immunization: Unknown - Past Medical History & Family History Past Medical History?: Yes Pertinent Family History: Unknown - Past Social History Smoking Status: Former Smoker Alcohol: None Drugs: Denies Home Situation {Lives}: Alone - CARDIAC Hx Cardiac Disorders: Yes Hx Congestive Heart Failure: No Hx Hypercholesterolemia: Yes Hx Hypertension: Yes - PULMONARY Hx Respiratory Disorders: Yes Hx Bronchitis: Yes Hx Chronic Obstructive Pulmonary Disease (COPD): Yes Hx Pneumonia: Yes - NEUROLOGICAL Hx Neurological Disorder: Yes Hx Dementia: Yes Hx Seizures: No Hx Transient Ischemic Attacks (TIA): No - HEENT Hx HEENT Problems: Yes Hx Cataracts: Yes - RENAL Hx Chronic Kidney Disease: No - ENDOCRINE/METABOLIC Hx Endocrine Disorders: No Hx Hypothyroidism: No - HEMATOLOGICAL/ONCOLOGICAL Hx AIDS: No Hx Human Immunodeficiency Virus (HIV): No - INTEGUMENTARY Hx Dermatological Problems: Yes Hx Squamous Cell: Yes (No Chemo treatment; surgery 10 yrs ago at [place]) - MUSCULOSKELETAL/RHEUMATOLOGICAL Hx Falls: Yes - GASTROINTESTINAL Hx Gastrointestinal Disorders: No - GENITOURINARY/GYNECOLOGICAL Hx Genitourinary Disorders: No Hx Sexually Transmitted Disorders: No - PSYCHIATRIC Hx Substance Use: No - SURGICAL HISTORY Hx Surgeries: Yes Hx Hysterectomy: Yes (Partial) Other/Comment: mouth and neck CA SX - ANESTHESIA Hx Anesthesia: Yes Hx Anesthesia Reactions: No Hx Malignant Hyperthermia: No Meds Allergies/Adverse Reactions: Allergies Allergy/AdvReac Type Severity Reaction Status Date / Time No Known Allergies Allergy Verified 08/22/18 14:40 Physical Exam - Constitutional Appears: Chronically Ill, Other (generalized edema.) - Head Exam Head Exam: NORMAL INSPECTION - Eye Exam Pupil Exam: Fixed - ENT Exam ENT Exam: Normal Exam - Neck Exam Neck exam: Positive for: Normal Inspection - Respiratory Exam Respiratory Exam: Decreased Breath Sounds Additional comments: Irregular labored inspiration breathing - Cardiovascular Exam Cardiovascular Exam: Bradycardia - GI/Abdominal Exam GI & Abdominal Exam: Soft - Extremities Exam Additional comments: Edema all extremities. bruises BLE, necrotic toes - Neurological Exam Additional comments: Comatose. - Skin Skin Exam: Pallor Results - Vital Signs Recent Vital Signs: Last Vital Signs Temp 98.1 F 08/31/18 07:53 Pulse 88 08/31/18 07:53 Resp 21 08/31/18 07:53 BP 88/44 L 08/31/18 07:53 Pulse Ox 90 L 08/31/18 07:53 reviewed [email or web address] Assessment & Plan (1) Acute respiratory failure Status: Acute Priority: High (2) Acute renal failure Status: Acute Priority: High (3) Altered mental status Status: Acute Priority: High (4) Colitis Status: Acute Priority: High (5) Metabolic acidosis Status: Acute Priority: High (6) Septic shock Status: Acute Priority: High (7) Transaminitis Status: Acute Priority: High (8) COPD (chronic obstructive pulmonary disease) Status: Chronic Priority: High (9) DMII (diabetes mellitus, type 2) Status: Chronic Priority: Medium (10) Dementia Status: Chronic Priority: High (11) History of throat cancer Status: Chronic Priority: Medium (12) H/O ETOH abuse Status: Chronic - Assessment and Plan (Free Text) Plan: Continue Morphine drips, poor prognosis. - Date & Time Date: 08/31/18 Time: 13:45
[2018-08-31 15:59] VITALS: BP 90/53; PULSE 73; RESP 10; TEMP 99.6; O2SAT 69
--- NOTE | 2018-08-31 21:06 | CP.PCM.PRO ---
Pronouncement of Note - Clinical Findings Physical Exam: No Response Verbal/Painful Stimuli, Absent Peripheral Puls es{Carotid & Femoral}, Absent Heart & Breath Sounds, No Pupillary Light Reflex, No Corneal Reflex, Pupils Fixed & Dilated, Absence of Vital Signs - Pronouncement Time Time of Pronouncement of : 20:55 - Notifications Pronouncement Notifications: Family Notified, Atending Notified Cash Register Operator Notified: No - Autopsy Autopsy Requested: No - [place] [id number]
== END 2018-08-31 20:55 | DRG 189 ==
LOC: H.ICU/CCU 16:17 → H.MEDSURG1 17:55
PROVIDERS: ADMIT Internal Medicine Pulmonary Disease; ATTEND Internal Medicine Pulmonary Disease
DX: J96.00 Acute respiratory failure, unspecified whether with hypoxia or hypercapnia (principal); R65.21 Severe sepsis with septic shock; R40.20 Unspecified coma; N17.9 Acute kidney failure, unspecified; E87.2 Acidosis; E78.00 Pure hypercholesterolemia, unspecified; F03.90 Unspecified dementia, unspecified severity, without behavioral disturbance, psychotic disturbance, mood disturbance, and anxiety; I10 Essential (primary) hypertension; J44.9 Chronic obstructive pulmonary disease, unspecified; Z87.01 Personal history of pneumonia (recurrent); Z87.891 Personal history of nicotine dependence; Z90.710 Acquired absence of both cervix and uterus; Z51.5 Encounter for palliative care; K52.9 Noninfective gastroenteritis and colitis, unspecified; R74.0 Nonspecific elevation of levels of transaminase and lactic acid dehydrogenase [LDH]; E11.9 Type 2 diabetes mellitus without complications; Z85.819 Personal history of malignant neoplasm of unspecified site of lip, oral cavity, and pharynx; F10.11 Alcohol abuse, in remission